=== PATIENT | female | born 1960 | race Two or more races ===

== ENCOUNTER → 2024-01-09 | Outpatient (CLI) | payer OTHER, SELFPAY ==
[2024-01-09 18:20] LABS: Free T4 (Free Thyroxine) 1.33 ng/dL (0.89-1.76)
== END | disposition home or self-care (01) ==
LOC: COPL 16:41
PROVIDERS: PCP Family Medicine; Referring Provider Family Medicine; Visit Provider Family Medicine
DX: E89.0 Postprocedural hypothyroidism (principal)
CPT/HCPCS: 36415; 84439; 84443

== ENCOUNTER 2024-03-01 15:02 | Outpatient (RCR) | payer OTHER, SELFPAY ==
--- NOTE | 2024-03-01 16:00 | CTCFLWUP_ITS ---
[facility] [address], [place] [address] FOLLOW-UP NOTE Date: 03/01/2024 MR#: [id number] Name: LINWOOD CARROLL : 1960 Dx: [id number] Malignant neoplasm of thyroid gland Identification. 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 Chandler Shelley. Stage II [id number] differentiated thyroid cancer papillary thyroid cancer status post suspected right l kitty malignancy with biopsy 10/06/2021 was negative. Underwent 100 mCi of radioiodine 12/01/2019 with residual cancer suspected via imaging studies so add itional external beam radiation was given 03/08/2022 through 05/20/2022 6800 cGy in [address] fractions [address] Dr[address] Tricia Suggs is giving patient's Synthroid supplements to keep her euthyroid. Most recent labs 01/09/2024 euthyroid TSH 0.20 Free T4 1.33 thyroglobulin was 1.2 on 09/12/2023. Being followed by Dr. Coburn for early stage breast cancer following double mastectomy with estrogen modulators. States that she will take the last of her 6 years letrozole this month. PET scan 09/19/2023 shows stable hypermetabolic foci in right upper lobe as well as focus of increased activity posterior medial left lower lobe. Subtle uptake in T5 T8 region. Had brain MRI 12/21/2023 negative as was her thoracolumbar spine MRI on 11/16/2023 Thyroid ultrasound 10/17/2023 showed no soft tissue mass in the thyroid bed. 1. Order ultrasound of the thyroid region 2. Repeat PET scan in [place] 3.Thyroglobulin thyroglobulin antibody Follow-up 3 months. Electronically signed by: Duane Flowers M.D. 03/01/2024 3:57 PM
== END 2024-03-23 23:59 | disposition home or self-care (01) ==
LOC: SCTC 15:02
PROVIDERS: PCP Family Medicine; Referring Provider Family Medicine; Visit Provider Radiology Therapeutic Radiology
DX: C73 Malignant neoplasm of thyroid gland (principal); E89.0 Postprocedural hypothyroidism; Z92.3 Personal history of irradiation; Z79.890 Hormone replacement therapy
CPT/HCPCS: 99213; G0463

== ENCOUNTER → 2024-03-23 | Outpatient (CLI) | payer OTHER, SELFPAY ==
--- NOTE | 2024-03-23 16:00 | XR_ITS ---
Examination: Thyroid sonography complete TECHNIQUE: Grayscale sonographic images thyroid lobes are carful analysis Exam date and time: March 23, 2024 at 1624 hours INDICATIONS: Thyroid cancer diagnosis post thyroidectomy 2021 FINDINGS: No soft tissue mass in the thyroid bed No thyroid lobes noted IMPRESSION: No soft tissue mass in the thyroid bed
== END | disposition home or self-care (01) ==
PROVIDERS: PCP Family Medicine; Referring Provider Radiology Therapeutic Radiology; Visit Provider Radiology Therapeutic Radiology
DX: C73 Malignant neoplasm of thyroid gland (principal)
CPT/HCPCS: 76536

== ENCOUNTER → 2024-04-13 | Outpatient (CLI) | payer OTHER, SELFPAY ==
[2024-04-13 18:05] LABS: Free T4 (Free Thyroxine) 1.33 ng/dL (0.89-1.76); Thyroid Stimulating Hormone 0.14 uIU/mL (0.55-4.78)
[2024-04-18 17:49] LABS: Thyroglobulin Antibodies 1 IU/mL (< OR = 1)
[2024-04-19 06:51] LABS: Thyroglobulin 0.6 ng/mL
== END | disposition home or self-care (01) ==
LOC: SCTO 16:33
PROVIDERS: PCP Family Medicine; Referring Provider Radiology Therapeutic Radiology; Visit Provider Radiology Therapeutic Radiology
DX: C73 Malignant neoplasm of thyroid gland (principal); E03.8 Other specified hypothyroidism
CPT/HCPCS: 36415; 84432; 84439; 84443; 86800

== ENCOUNTER 2024-06-06 14:25 | Outpatient (RCR) | payer OTHER, SELFPAY ==
--- NOTE | 2024-06-06 15:23 | CTCFLWUP_ITS ---
[facility] [address] [address], [place] [address] FOLLOW-UP NOTE Date: 06/06/2024 MR#: [id number] Name: LINWOOD CARROLL : 1960 Dx: [id number] Malignant neoplasm of thyroid gland Identification. 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 Chandler Shelley. Stage II [id number] differentiated carcinoma thyroid Also status post right lung malignancy with PET showing lung nodules with biopsy 10/06/2021 which was negative. Patient has been experiencing back pain with MRI of TL spine 11/16/2023 no definite evidence of mets. Ultrasound of thyroid region 03/23/2024 no sign of recurrence. Most recent PET 06/12/2024 shows some increased activity the left larynx left laryngeal and epiglottic folds with 9.47 maximal SUV. Multiple small pulm nodules seen again bilaterally some which are slightly larger and more hypermetabolic. Most recent labs 04/13/2024 TSH 0.14 Free T4 1.33 Thyroglobulin 0.6 1.2 on 09/13/2023 A#1. Stage !! [id number] status post total thyroidectomy bilateral neck dissection 10/06/2021 Daphney had radioactive iodine #2. had biopsy of lung nodule PET positive - 10/06/2021. #3. received 100 mCi of radioactive iodine with what appeared to residual in the thyroid region so also received external beam radiation 6600 cGy completed 05/03/2022. #4. currently euthyroid on 75 mcg of Synthroid. #5. persistent pulmonary nodules noted on recent PET scan. Will attempt to get CT guided biopsy #6. being seen at [facility] for early stage right breast cancer status post bilateral mastectomy 2018 on letrozole. No sign of recurrence according to patient #7. Labs thyroid function test thyroglobulin CT scan neck chest. #8. Follow-up 3 months. Electronically signed by: Duane Flowers M.D. 06/06/2024 3:21 PM
== END 2024-06-20 23:59 | disposition home or self-care (01) ==
LOC: SCTC 14:25
PROVIDERS: PCP Family Medicine; Referring Provider Family Medicine; Visit Provider Radiology Therapeutic Radiology
DX: C73 Malignant neoplasm of thyroid gland (principal); E89.0 Postprocedural hypothyroidism; Z92.3 Personal history of irradiation; R91.8 Other nonspecific abnormal finding of lung field; Z90.13 Acquired absence of bilateral breasts and nipples; Z85.3 Personal history of malignant neoplasm of breast
CPT/HCPCS: 99213; G0463

== ENCOUNTER → 2024-06-22 | Outpatient (CLI) | payer OTHER, SELFPAY ==
[2024-06-22 17:28] LABS: Basophils % (Auto) 1 % (0-2.5); Eosinophils # (Auto) 0.2 Thou/mm3 (0.0-0.5); Eosinophils % (Auto) 3 % (0-10); Hemoglobin 13.3 g/dL (12.0-16.0); Immature Granulocytes % (Auto) 0 % (0-0); Immature Granulocytes Auto 0.01 Thou/mm3 (0.00-0.00); Lymphocytes # (Auto) 1.7 Thou/mm3 (1.0-4.8); Lymphocytes % (Auto) 25 % (10-50); Mean Corpuscular HGB Conc 34.1 g/dl (31.0-37.0); Mean Corpuscular Hemoglobin 29.4 pg (25.0-35.0); Mean Corpuscular Volume 86 fL (80-100); Monocytes # (Auto) 0.6 Thou/mm3 (0.0-0.8); Monocytes % (Auto) 9 % (0-12); Neutrophils # (Auto) 4.3 Thou/mm3 (1.8-7.7); Neutrophils % (Auto) 63 % (37-80); Nucleated Red Blood Cell % 0 /100 WBC (0); Platelet Count 238 Thou/mm3 (140-440); RDW Standard Deviation 41.9 fL (36.4-46.3); Red Blood Count 4.53 Miln/mm3 (4.00-5.20); White Blood Count 6.7 Thou/mm3 (3.6-11.0)
[2024-06-22 17:45] LABS: Alanine Aminotransferase 16 U/L (10-49); Albumin, Serum 4.5 gm/dL (3.4-4.8); Albumin/Globulin Ratio 1.7 (1.2-2.2); Alkaline Phosphatase 81 U/L (46-116); Anion Gap 8 (7-16); Aspartate Amino Transferase 18 U/L (0-34); BUN/Creatinine Ratio 16 Ratio (12-20); Bilirubin,Total 0.4 mg/dL (0.3-1.2); Blood Urea Nitrogen 14 mg/dL (9-23); Calcium 8.7 mg/dL (8.3-10.6); Calcium (Corrected) 8.7 mg/dL (8.5-10.1); Carbon Dioxide 27.6 mMol/L (20.0-31.0); Chloride 107 mMol/L (98-107); Creatinine (Component) 0.9 mg/dL (0.6-1.3); Free T4 (Free Thyroxine) 1.15 ng/dL (0.89-1.76); Globulin 2.6 gm/dL (2.3-3.5); Glucose 86 mg/dL (74-106); Osmolality,Calculated 284 (275-295); Potassium 4.2 mMol/L (3.4-5.1); Sodium 143 mMol/L (136-145); Thyroid Stimulating Hormone 0.66 uIU/mL (0.55-4.78); Total Protein 7.1 gm/dL (5.7-8.2); eGFR > 60 See Note
== END | disposition home or self-care (01) ==
LOC: SCTO 16:57
PROVIDERS: PCP Family Medicine; Referring Provider Radiology Therapeutic Radiology; Visit Provider Radiology Therapeutic Radiology
DX: C73 Malignant neoplasm of thyroid gland (principal); E89.0 Postprocedural hypothyroidism
CPT/HCPCS: 36415; 80053; 84432; 84439; 84443; 85025; 86800

== ENCOUNTER → 2024-07-10 | Outpatient (CLI) | payer OTHER, SELFPAY ==
--- NOTE | 2024-07-10 10:30 | XR_ITS ---
Examination: CT chest with intravenous contrast 2-D sagittal and coronal reconstructions Exam date and time: July 10, [address] chest 11/01/2016 INDICATIONS: Diagnosis malignant neoplasm thyroid gland thyroid cancer 2021 also bilateral breast cancer, diagnosis post mastectomy 2018, hoarseness voice 6 months CTDI:vol (mGy) 22.8 DLP: (mGycm) 809 Technique: Multiple axial sections of the thorax have been obtained. Sections have been obtained, 3 mm slice thickness. Mediastinal and lung density settings have been obtained. Intravenous contrast administered, 60 cc Isovue-370. 2-D sagittal, coronal images obtained. Low dose protocols were performed. One or more of the following dose reduction techniques were used; automated exposure control, adjustment of the mA and/or KV according to patient size, use of iterative reconstruction technique. Findings: No thoracic aortic aneurysm dilatation or dissection No pulmonary artery filling defects No paratracheal tracheobronchial or bronchopulmonary adenopathy At least 30 bilateral noncalcified pulmonary nodules, the largest is in the right upper lobe, with spiculated margins, 9 mm No lobar pneumonia or pulmonary edema No visualized liver or splenic lesions No gallstones No pancreatic or adrenal mass IMPRESSION: At least 30 bilateral noncalcified pulmonary nodules consistent with pulmonary nodular metastatic disease
--- NOTE | 2024-07-10 11:00 | XR_ITS ---
Examination: CT soft tissue neck, with intravenous contrast. 2-D coronal reconstructions. 2-D sagittal reconstructions. 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 CTDI: vol (mGy):15.5 DLP: (mGycm):133 Technique: 1.25 mm axial sections of the neck of the obtained. Coronal and sagittal reconstructions have been obtained. Intravenous contrast administered 60 cc Isovue-370. Low dose protocols were performed. One or more of the following dose reduction techniques were used; automated exposure control, adjustment of the mA and/or KV according to patient size, use of iterative reconstruction technique. Findings: Mucosal disease in the sphenoid air cells Symmetrical nasopharynx oropharynx No pathologic carotid triangle submental lymphadenopathy Surgical clips in the carotid triangle regions Symmetrical submandibular glands No laryngeal mass No soft tissue in the thyroid bed Normal epiglottis IMPRESSION: No pathologic lymphadenopathy No soft tissue mass in the thyroid bed
== END | disposition home or self-care (01) ==
PROVIDERS: PCP Family Medicine; Referring Provider Radiology Therapeutic Radiology; Visit Provider Radiology Therapeutic Radiology
DX: R49.0 Dysphonia (principal); R91.8 Other nonspecific abnormal finding of lung field; C73 Malignant neoplasm of thyroid gland
CPT/HCPCS: 70491; 71260; A4649; Q9967

== ENCOUNTER 2024-10-17 15:11 | Outpatient (RCR) | payer OTHER, SELFPAY ==
--- NOTE | 2024-10-17 16:18 | CTCFLWUP_ITS ---
[facility] [address] [place], [place] [address] FOLLOW-UP NOTE Date: 10/17/2024 MR#: [id number] Name: LINWOOD CARROLL : 1960 Dx: C73 Malignant neoplasm of thyroid gland Identification. 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 Chandler Shelley. Stage II [id number] differentiated carcinoma thyroid. Also history of bilateral mastectomy 2018 for early stage breast cancer been on letrozole under Dr. Coburn's direction. PET scan showed lung nodules with biopsy 10/06/2021 negative. Had 100 mCi of radioactive iodine 12/11/2021 with residual cancer suspected via imaging studies so additional radiotherapy given via external beam 03/08/2022 through 05/03/2022 6600 cGy in 33 fractions via VMAT. Most recent PET scan 06/11/2023 showed increased activity laryngeal area with small pulmonary nodules with some slightly larger than previously. Most recent CT 07/10/2024 showed no pathologic lymphadenopathy no soft tissue mass in thyroid bed but numerous bilateral noncalcified pulmonary nodules suggestive of mets disease. Was evaluated by ENT at [facility] Dr. Quiros. ENT exam essentially unremarkable but possible biopsy of the lung nodules was discussed. Thyroglobulin has remained low Patient saw Dr. Barrios today because of significant rash lower trunk for which she was given prednisone and other medications. Examined her neck and upper chest which were unremarkable lungs were clear. A#!. Stage II differential carcinoid thyroid prior thyroidectomy radioactive iodine and external beam. Patient has been euthyroid on Synthroid 75 mcg. With low thyroglobulin. A#2. Small but enlarging pulmonary nodules being followed at [facility]. Recommended biopsy done there. Patient agrees. A#3. I will see her again in 3 months with labs including CBC CMP and thyroid functions. Cc: Trevor Suggs MD Electronically signed by: Duane Flowers M.D. 10/17/2024 4:16 PM
== END 2024-10-21 23:59 | disposition home or self-care (01) ==
LOC: SCTC 15:11
PROVIDERS: PCP Family Medicine; Referring Provider Family Medicine; Visit Provider Radiology Therapeutic Radiology
DX: C73 Malignant neoplasm of thyroid gland (principal); E89.0 Postprocedural hypothyroidism; Z79.890 Hormone replacement therapy; R91.8 Other nonspecific abnormal finding of lung field
CPT/HCPCS: 99213; G0463

== ENCOUNTER → 2024-11-02 | Outpatient (CLI) | payer OTHER, SELFPAY ==
[2024-11-02 09:31] LABS: Basophils # (Auto) 0.1 Thou/mm3 (0.0-0.2); Basophils % (Auto) 1 % (0-2.5); Eosinophils # (Auto) 0.5 Thou/mm3 (0.0-0.5); Eosinophils % (Auto) 6 % (0-10); Hematocrit 45.9 % (36.0-46.0); Hemoglobin 15.3 g/dL (12.0-16.0); Immature Granulocytes Auto 0.02 Thou/mm3 (0.00-0.00); Lymphocytes # (Auto) 0.9 Thou/mm3 (1.0-4.8); Lymphocytes % (Auto) 11 % (10-50); Mean Corpuscular HGB Conc 33.3 g/dl (31.0-37.0); Mean Corpuscular Hemoglobin 29.7 pg (25.0-35.0); Mean Corpuscular Volume 89 fL (80-100); Monocytes # (Auto) 0.9 Thou/mm3 (0.0-0.8); Monocytes % (Auto) 11 % (0-12); Neutrophils # (Auto) 6.0 Thou/mm3 (1.8-7.7); Neutrophils % (Auto) 72 % (37-80); Nucleated Red Blood Cell # 0.00 Thou/mm3 (0.00-0.00); Nucleated Red Blood Cell % 0 /100 WBC (0); Platelet Count 323 Thou/mm3 (140-440); RDW Standard Deviation 44.8 fL (36.4-46.3); Red Blood Count 5.16 Miln/mm3 (4.00-5.20); White Blood Count 8.4 Thou/mm3 (3.6-11.0)
[2024-11-02 09:45] LABS: Free T4 (Free Thyroxine) 1.07 ng/dL (0.89-1.76); Thyroid Stimulating Hormone 7.99 uIU/mL (0.55-4.78)
== END | disposition home or self-care (01) ==
LOC: COPL 08:23
PROVIDERS: PCP Family Medicine; Referring Provider Family Medicine; Visit Provider Family Medicine
DX: E89.0 Postprocedural hypothyroidism (principal)
CPT/HCPCS: 36415; 84439; 84443; 85025

== ENCOUNTER 2024-11-06 16:06 | Inpatient (IN) | payer OTHER, SELFPAY ==
[2024-11-06 16:24] VITALS: BP 149/84; PULSE 81; RESP 24; TEMP 37.5; O2SAT 95
[2024-11-06 16:39] VITALS: BMI 31.4
--- NOTE | 2024-11-06 16:39 | PC.NURSE ---
pt came in from lobby due to increased sob for 1 wk and sent by pmd for massive fluid to rt lung. pt has hacking cough that is having yellow sputum. pt also has hx of ca in breast and thyroid, which she has bilateral mastectomy. vss. placed pt on 2l nc for comfort.
--- NOTE | 2024-11-06 16:46 | EKG_ITS ---
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
--- NOTE | 2024-11-06 16:46 | XR_ITS ---
Examination: AP chest single view Technique one AP portable sitting chest single view Date and time: November 06, 2024, 1709 hrs., Comparison April 19, 2023 Indications: Chest pain today. Findings: Total opacification right hemithorax with shift of the heart and mediastinum to the left, most consistent with massive right pleural effusion Left ventricular contour unremarkable Possible retrocardiac gastric hernia although pulmonary mass in the left lower lobe not excluded No left lung pneumonia Impression: Total opacification right hemithorax, likely massive pleural effusion Consider CT chest post intravenous contrast follow-up
--- NOTE | 2024-11-06 16:46 | XR_ITS ---
Examination: CT chest, without intravenous contrast. Sagittal and coronal 2-D reconstructions. Exam date and time: November 06, 2024, 1903 hrs., Comparison July 10, 2024 Indications: Shortness of breath one week, diagnosis malignant neoplasm thyroid gland 2021, diagnosis bilateral breast cancer mastectomy, at least 30 noncalcified pulmonary nodules throughout the lungs on CT chest July 10, 2024 CTDI:vol (mGy) 12.8 DLP: (mGycm) 451 Technique: Multiple 3.0 mm axial sections of the chest to been obtained. Bone and lung density settings are obtained. Sagittal and coronal 2-D reconstructions have been obtained. Low dose protocols were performed. One or more of the following dose reduction techniques were used; automated exposure control, adjustment of the mA and/or KV according to patient size, use of iterative reconstruction technique. Findings: No thoracic aortic aneurysm dilatation Pulmonary artery segments are not enlarged. Massive right pleural effusion with total atelectasis right lung New and enlarging pulmonary nodules left lung consistent with progression of metastatic disease This study has been performed without contrast which limits assessment for mediastinal lymphadenopathy No definite liver lesions The gallbladder is partly visualized and distended Spleen is not enlarged No adrenal metastatic disease Moderate osteopenia Impression: Massive right pleural effusion with total atelectasis right lung Enlarging pulmonary nodules left lung consistent with progression of metastatic disease compared with July 10, 2024
--- NOTE | 2024-11-06 16:47 | XR_ITS ---
Examination: CTA chest with intravenous contrast 2-D reconstructions 3-D reconstructions, vascular Date and time of exam: November 06, 2024 1905 hrs. Indications: Thyroid carcinoma diagnosis, bilateral breast carcinoma diagnosis, massive right pleural effusion and shortness of breath today CTDI: vol (mGy) 19.3 DLP: (mGycm) 425 Technique: Multiple axial sections of the thorax have been obtained. 3 mm slice thickness, from below the hemidiaphragms to above the apices of the lungs. Mediastinal and lung density settings have been obtained. 2-D sagittal and coronal reconstructions. 3-D angiographic renderings, 3-D volume renderings, 3D post processing, vascular maximum intensity projections obtained. Contrast administered is 100 cc Isovue-370. Low dose protocols were performed. One or more of the following dose reduction techniques were used; automated exposure control, adjustment of the mA and/or KV according to patient size, use of iterative reconstruction technique. Findings: No thoracic aortic aneurysm dilatation or dissection No soft tissue masses in the thyroid bed Pulmonary artery segments are not enlarged No pulmonary artery filling defects Massive right pleural effusion with collapse of the right lung Multiple pulmonary nodules, progression of pulmonary nodular metastatic disease compared with July 10, 2024 No definite paratracheal or tracheobronchial or hilar lymphadenopathy Impression: Negative for pulmonary artery emboli Negative for pulmonary artery hypertension Massive right pleural effusion with total collapse of the right lung Progression of pulmonary nodular metastatic disease left lung compared with July 10, 2024
--- NOTE | 2024-11-06 16:48 | PD.EDSOB ---
ED SOB =RME/HPI General Chief Complaint: Shortness of Breath/Dyspnea Stated Complaint: SOB X 1 week, massive right pleural effusion Time Seen by Provider: 11/06/24 16:23 Arrival date/time: 11/06/24 16:06 RME / HPI RME / HPI Narrative: 64 year old female with history of breast CA dx 2017, s/p mastectomy, thyroid CA dx 2022, s/p thyroidectomy and radiation therapy, presents to the ED with complaints of shortness of breath, generalized weakness, and chills for the past two weeks. Patient initially saw her PCP two weeks ago and was diagnosed with emphysema. Started on a course of steroids and Zyrtec, which she took for one week without improvement. At her follow up appt 1 week ago, her medications were changed with no improvement in symptoms. States PCP ordered a chest x-ray that she had performed this morning and was called stating she had a right-sided pleural effusion; advised to come to the ED for further evaluation and treatment. Denies fever, abdominal pain, nausea, vomiting, or urinary symptoms. Patient also reports that since June 2024, imaging has shown spots in her lungs. She has been referred to [facility] for a lung biopsy and was originally scheduled for a consultation tomorrow but has rescheduled the appointment to 11/21/2024. Oncologists: Dr. Flowers ([place]), Dr. Chandler Crouch ([place]) Related Data Home Medications ?Medication ?Instructions ?Recorded ?Confirmed Fluticasone/Vilanterol (Breo 1 ea IH QDAY Asthma #0 ea 02/02/17 11/17/24 Ellipta 100-25 Mcg INH) letrozole 2.5 mg tablet 2.5 mg PO .am 01/21/21 11/17/24 sertraline 50 mg tablet 50 mg PO HS 01/21/21 11/17/24 albuterol sulfate 90 mcg/actuation 1 puff inhalation PRN PRN 11/07/24 11/17/24 aerosol inhaler shortness of breath or wheezing celecoxib 200 mg capsule 200 mg PO Q24H 11/07/24 11/17/24 letrozole 2.5 mg tablet (Femara) 2.5 mg PO Q24H 11/07/24 11/17/24 levothyroxine 75 mcg tablet 75 mcg PO .morning 11/07/24 11/17/24 Allergies Allergy/AdvReac Type Severity Reaction Status Date / Time Sulfa (Sulfonamide Allergy Severe Rash Verified 11/17/24 22:45 Antibiotics) tramadol Allergy Severe RASH, SOB Verified 11/17/24 22:44 PAPER TAPE Allergy Mild ICHY, Uncoded 11/17/24 22:44 LOCALIZED RASH Review of Systems Review of Systems Systems Reviewed: All systems reviewed, normal except as documented Past Medical History Past Medical History RESPIRATORY: Positive Asthma (started as an adult) and Pneumonia GASTROINTESTINAL: Positive Gastrointestinal Disorders and Obesity REPRODUCTIVE: Positive Breast Cancer (rt breast ca 3yrs ago, had double mastectomy december2017) and Previous Pregnancies () MUSCULOSKELETAL: Positive Musculoskeletal Disorders and Arthritis PSYCHO/SOCIAL: Positive Depression and Anxiety OTHER HISTORY: Positive Anesthesia Reactions (N/V), Chicken Pox, Cancer and Breast Cancer (rt breast ca 3yrs ago, had double mastectomy december2017) Surgical History SURGICAL: Positive Eye Surgery (lasik 18 yrs ago), Throat Surgery (voal cord, 2018), Mastectomy (double-2017) and Tubal Ligation (1979) Social History SMOKING STATUS: Never smoker ED Exam Narrative Physical exam: GENERAL APPEARANCE: alert and oriented x 4, well-developed, well-nourished, tachypneic, hoarse voice, coughing during exam HEENT: Normocephalic, atraumatic; pupils equal, round, reactive to light; EOMI; mucous membranes pink, moist; oropharynx clear NECK: Supple LUNGS: Decreased lung sounds to the apex on the right, lung sounds are okay on the right; no wheezes, no rales, no rhonchi HEART: Regular rate, regular rhythm; normal S1, S2; no murmurs ABDOMEN: non distended; normal BS; soft, no tenderness, no guarding, no rebound; no masses, no organomegaly, no hernia BACK: no CVA tenderness EXTREMITIES: atraumatic; no edema NEUROLOGIC: awake; alert and oriented x4; cranial nerves II-XII grossly intact; no focal sensory or motor deficits PSYCHIATRIC: appropriate mood and affect SKIN: warm, dry, normal color; no rashes Course Quality Measures none Orders Category Date Time Status Bedside COVID-19 Antigen Test NOW Care 11/06/24 16:46 Completed Bedside Influenza A&B Antigen Test NOW Care 11/06/24 16:[address] Screening NOW Care 11/06/24 16:47 Completed Corporate Trust Officer Q4H START 00 Care 11/06/24 16:46 Completed EKG (ED ONLY) *Do not use* NOW Care 11/06/24 16:[address] angio chest Stat Exams 11/06/24 16:[address] chest wo con Stat Exams 11/06/24 16:46 Completed EKG (ED Only) Stat Exams 11/06/24 16:46 Draft XR chest 1V portable Stat Exams 11/06/24 16:46 Completed B-Type Natriuretic Peptide Stat Lab 11/06/24 16:40 Completed Blood Culture (Lab) Stat Lab 11/06/24 16:58 Completed CBC Stat Lab 11/06/24 16:58 Completed Comprehensive Metabolic Panel Stat Lab 11/06/24 16:58 Completed Lactate (Lactic Acid) Stat Lab 11/06/24 16:58 Completed Magnesium Stat Lab 11/06/24 16:58 Completed Partial Thromboplastin Time Stat Lab 11/06/24 16:40 Completed Procalcitonin Stat Lab 11/06/24 16:58 Completed Prothrombin Time with INR Stat Lab 11/06/24 16:40 Completed Troponin I Stat Lab 11/06/24 16:58 Completed UA, C/S IF [Urinalysis, C/S if Indicated] Stat Lab 11/07/24 12:30 Completed Acetaminophen Tab [Tylenol Tab] Med 11/06/24 18:00 Discontinued 650 mg PO X1 ONE Vital Signs Vital signs: Vital Signs Temperature 99.5 F 11/06/24 16:24 Pulse Rate 81 11/06/24 16:24 Respiratory Rate 24 H 11/06/24 16:24 Blood Pressure 149/84 H 11/06/24 16:24 Pulse Oximetry (%) 95 11/06/24 16:24 Oxygen Delivery Method Room Air 11/06/24 16:24 Pulse ox is 95% on room air which is adequate. Shortness of Breath / Dyspnea MDM Narrative MDM Narrative:: Shanelle Mckeon am scribing for and in the presence of Dr. Rivera. 1800: Patient signed out to Dr. Guerra pending CTA chest and CT chest wo con. Patient data External records reviewed:: [facility] previous records Clinical information provided by:: patient Social determinants that could affect healthcare access:: none Patient has the following chronic illnesses:: breast CA dx 2017, s/p mastectomy, thyroid CA dx 2022, s/p thyroidectomy and radiation therapy How is presenting disease/condition affected by chronic disease/condition?: exacerbated by Evaluation data The following diagnostics were reviewed and interpreted by me:: lab results, radiology exam(s) and EKG tracing(s) (Sinus rhythm with short TN interval, rate 86, no STEMI) Lab and/or radiology exams considered but not ordered:: None Interpretation Summary: Ordering Physician: Corina Rivera MD Date of Service: 11/06/24 Procedure(s): XR chest 1V portable Accession Number(s): [id number] cc: Trevor Suggs MD; Cipriano Castellon MD; Corina Rivera MD~ Examination: AP chest single view Technique one AP portable sitting chest single view Date and time: November 06, 2024, 1709 hrs., Comparison April 19, 2023 Indications: Chest pain today. Findings: Total opacification right hemithorax with shift of the heart and mediastinum to the left, most consistent with massive right pleural effusion Left ventricular contour unremarkable Possible retrocardiac gastric hernia although pulmonary mass in the left lower lobe not excluded No left lung pneumonia Impression: Total opacification right hemithorax, likely massive pleural effusion Consider CT chest post intravenous contrast follow-up Dictated By: Cipriano Castellon MD Signed By: <Electronically signed by Cipriano Castellon MD in [place]> 11/06/24 1732 Medications / Prescriptions Medications or Prescriptions considered but not ordered:: None Medication administrations:: Medication Administration History Discontinued Medications Acetaminophen (Acetaminophen 325 Mg Tablet) 650 mg PO X1 ONE Stop: 11/06/24 18:01 Last Admin: 11/06/24 18:32 Dose: 650 mg Documented By: YUNG Acetaminophen (Acetaminophen 325 Mg Tablet) 650 mg PO Q6H PRN PRN Reason: Fever >101.5 Stop: 12/06/24 22:15 Acetaminophen (Acetaminophen 325 Mg Tablet) 650 mg PO Q6H PRN; Protocol PRN Reason: Fever >101.5 AND PAIN Stop: 12/06/24 22:15 Last Admin: 11/10/24 20:40 Dose: 650 mg Documented By: Admin: 11/10/24 14:44 Dose: 650 mg Documented By: Admin: 11/08/24 06:21 Dose: 650 mg Documented By: Admin: 11/07/24 08:42 Dose: 650 mg Documented By: Hydrocodone Bitart/Acetaminophen (Hydrocodone/Apap 5/325 Tablet) 1 tab PO X1 ONE Stop: 11/09/24 11:04 Last Admin: 11/09/24 11:09 Dose: 1 tab Documented By: zafar Hydrocodone Bitart/Acetaminophen (Hydrocodone/Apap 5/325 Tablet) 1 tab PO X1 ONE Stop: 11/09/24 19:58 Last Admin: 11/09/24 20:03 Dose: 1 tab Documented By: Hydrocodone Bitart/Acetaminophen (Hydrocodone/Apap 5/325 Tablet) 1 tab PO X1 ONE Stop: 11/10/24 05:05 Last Admin: 11/10/24 05:15 Dose: 1 tab Documented By: Hydrocodone Bitart/Acetaminophen (Hydrocodone/Apap 5/325 Tablet) 1 tab PO X1 ONE Stop: 11/10/24 22:40 Last Admin: 11/10/24 22:54 Dose: 1 tab Documented By: Hydrocodone Bitart/Acetaminophen (Hydrocodone/Apap 5/325 Tablet) 1 tab PO Q4HR PRN PRN Reason: Pain 7-10 Stop: 11/16/24 11:40 Last Admin: 11/13/24 13:20 Dose: 1 tab Documented By: Admin: 11/13/24 04:17 Dose: 1 tab Documented By: Admin: 11/12/24 23:57 Dose: 1 tab Documented By: Admin: 11/12/24 18:13 Dose: 1 tab Documented By: Admin: 11/12/24 07:52 Dose: 1 tab Documented By: Admin: 11/11/24 23:49 Dose: 1 tab Documented By: Admin: 11/11/24 19:25 Dose: 1 tab Documented By: ANGEL Hydrocodone Bitart/Acetaminophen (Hydrocodone/Apap 5/325 Tablet) 1 tab PO Q3H PRN PRN Reason: Pain 5-10 Stop: 11/16/24 11:40 Last Admin: 11/14/24 07:07 Dose: 1 tab Documented By: Admin: 11/13/24 21:03 Dose: 1 tab Documented By: Admin: 11/13/24 16:44 Dose: 1 tab Documented By: DIGNA Albuterol/Ipratropium (Albuterol/Ipratropium (Duoneb) Rt Zo 3 Ml Nebu) 3 ml INH Q2HR PRN PRN Reason: SHORTNESS OF BREATH OR WHEEZE Stop: 12/07/24 02:50 Last Admin: 11/14/24 01:12 Dose: 3 ml Documented By: MAGGY Fentanyl Citrate (Fentanyl Cit Inj 50 Mcg/Ml Amp 2ml) Confirm Administered Dose 100 mcg .ROUTE .STK-MED ONE Stop: 11/08/24 14:30 Last Admin: 11/08/24 15:31 Dose: Not Given Documented By: ARGENTINA Non-Admin Reason: Override Medication Fentanyl Citrate (Fentanyl Cit Inj 50 Mcg/Ml Amp 2ml) 75 mcg IVP X1 ONE Stop: 11/08/24 14:43 Last Admin: 11/08/24 14:43 Dose: 75 mcg Documented By: ARGENTINA Guaifenesin (Guaifenesin Er 600 Mg Tabcr) 600 mg PO X1 ONE Stop: 11/07/24 19:18 Last Admin: 11/07/24 20:11 Dose: 600 mg Documented By: DYLAN Moseleyaifenesin (Guaifenesin Er 600 Mg Tabcr) 600 mg PO BID [place]O Stop: 12/08/24 10:44 Last Admin: 11/14/24 08:56 Dose: 600 mg Documented By: Admin: 11/13/24 21:03 Dose: 600 mg Documented By: Admin: 11/13/24 08:54 Dose: 600 mg Documented By: Admin: 11/12/24 20:18 Dose: 600 mg Documented By: Admin: 11/12/24 08:49 Dose: 600 mg Documented By: Admin: 11/11/24 20:30 Dose: 600 mg Documented By: Admin: 11/11/24 08:15 Dose: 600 mg Documented By: Admin: 11/10/24 20:42 Dose: 600 mg Documented By: Admin: 11/10/24 08:51 Dose: 600 mg Documented By: Admin: 11/09/24 21:01 Dose: 600 mg Documented By: Admin: 11/09/24 08:34 Dose: 600 mg Documented By: zafar Admin: 11/08/24 22:16 Dose: Not Given Documented By: BREE Non-Admin Reason: Patient Refused Admin: 11/08/24 11:24 Dose: 600 mg Documented By: zafar Heparin Sodium (Beef Lung) (Heparin Sod Lock Syr 100 Unit/Ml) 500 [facility] X1 ONE Stop: 11/08/24 14:43 Last Admin: 11/08/24 14:44 Dose: 500 unit Documented By: ARGENTINA Comments: to sterile field Heparin Sodium (Porcine) (Heparin Sod Inj 5000 Unit/Ml Vial) 5,000 unit SC BID CHAPARRO Stop: 11/21/24 08:59 Last Admin: 11/07/24 20:00 Dose: Not Given Documented By: DYLAN Non-Admin Reason: okay to hold it per Dr. Guerrero Admin: 11/07/24 08:30 Dose: 5,000 unit Documented By: Co-signed By: KATHIE Ceftriaxone Sodium/Dextrose (Rocephin/D5w 1gm Iv Premix) 1 gm in 50 mls @ 100 mls/hr IV QDAY [place] Stop: 11/10/24 09:29 Last Admin: 11/10/24 08:52 Dose: 100 mls/hr Documented By: Infusion: 11/09/24 09:04 Dose: Infused Documented By: Admin: 11/09/24 08:34 Dose: 100 mls/hr Documented By: zafar Infusion: 11/08/24 10:34 Dose: Infused Documented By: zafar Admin: 11/08/24 10:04 Dose: 100 mls/hr Documented By: zafar Infusion: 11/07/24 09:09 Dose: Infused Documented By: zafar Admin: 11/07/24 08:39 Dose: 100 mls/hr Documented By: Doxycycline Hyclate 100 mg/ (Sodium Chloride) 100 mls @ 100 mls/hr IV X1 ONE Stop: 11/06/24 23:44 Last Admin: 11/07/24 01:06 Dose: 100 mls/hr Documented By: FORD Ceftriaxone Sodium/Dextrose (Rocephin/D5w 1gm Iv Premix) 1 gm in 50 mls @ 100 mls/hr IV X1 ONE Stop: 11/06/24 23:14 Last Admin: 11/07/24 01:06 Dose: 100 mls/hr Documented By: FORD Doxycycline Hyclate 100 mg/ (Sodium Chloride) 100 mls @ 100 mls/hr IV BID [place]O Stop: 11/13/24 08:59 Magnesium Sulfate (Magnesium Sulfate Ivpb) 4 gm in 50 mls @ 12.5 mls/hr IV X1 ONE Stop: 11/07/24 12:05 Last Admin: 11/07/24 08:39 Dose: 12.5 mls/hr Documented By: Letrozole (Letrozole 2.5 Mg Tablet (Non-Formulary)) 2.5 mg PO QDAY [place]O Stop: 12/10/24 09:44 Last Admin: 11/14/24 08:56 Dose: 2.5 mg Documented By: DIGNA Co-signed By: [email or web address] Admin: 11/13/24 08:50 Dose: 2.5 mg Documented By: DIGNA Co-signed By: HUGO Admin: 11/12/24 08:50 Dose: 2.5 mg Documented By: KEELEY Co-signed By: GENOVEVA Admin: 11/11/24 08:17 Dose: 2.5 mg Documented By: DONNA Co-signed By: ANNE Admin: 11/10/24 10:42 Dose: 2.5 mg Documented By: DIGNA Co-signed By: DONNA Levothyroxine Sodium (Levothyroxine Sodium 25 Mcg Tablet) 75 mcg PO ACBR [place] Stop: 12/07/24 05:59 Last Admin: 11/14/24 05:03 Dose: 75 mcg Documented By: Admin: 11/13/24 05:51 Dose: 75 mcg Documented By: Admin: 11/12/24 05:40 Dose: 75 mcg Documented By: Admin: 11/11/24 05:40 Dose: 75 mcg Documented By: Admin: 11/10/24 05:16 Dose: 75 mcg Documented By: Admin: 11/09/24 06:13 Dose: 75 mcg Documented By: Admin: 11/08/24 06:21 Dose: 75 mcg Documented By: Admin: 11/07/24 05:06 Dose: 75 mcg Documented By: ANTONIA Lidocaine (Lidocaine 5% 1 Patch) 1 patch TOP X1 ONE Stop: 11/11/24 06:04 Last Admin: 11/11/24 06:11 Dose: 1 patch Documented By: Lidocaine HCl (Lidocaine Inj Pf 1% 30 Ml Vial) Confirm Administered Dose 30 ml .ROUTE .STK-MED ONE Stop: 11/08/24 13:30 Last Admin: 11/08/24 15:31 Dose: Not Given Documented By: CU Non-Admin Reason: Override Medication Lidocaine HCl (Lidocaine Inj Pf 1% 30 Ml Vial) Confirm Administered Dose 30 ml .ROUTE .STK-MED ONE Stop: 11/08/24 14:30 Last Admin: 11/08/24 15:32 Dose: Not Given Documented By: ARGENTINA Non-Admin Reason: Override Medication Lidocaine HCl (Lidocaine Inj Pf 1% 30 Ml Vial) 25 ml INFL X1 ONE Stop: 11/08/24 14:43 Last Admin: 11/08/24 14:44 Dose: 25 ml Documented By: ARGENTINA Comments: to sterile field administered by Dr. Castellon Morphine Sulfate (Morphine Sulf Inj 4 Mg/Ml Vial) 1 mg IVP Q4H PRN PRN Reason: Pain 7-10 Last Admin: 11/09/24 04:05 Dose: 1 mg Documented By: Admin: 11/08/24 21:30 Dose: 1 mg Documented By: Admin: 11/08/24 16:45 Dose: 1 mg Documented By: zafar Naloxone HCl (Naloxone Inj 0.4 Mg/Ml Vial) Confirm Administered Dose 0.4 mg .ROUTE .STK-MED ONE Stop: 11/08/24 14:29 Last Admin: 11/08/24 15:31 Dose: Not Given Documented By: CU Non-Admin Reason: Override Medication Ondansetron HCl (Ondansetron Inj 2 Mg/Ml Inj 2 Ml) Confirm Administered Dose 4 mg .ROUTE .STK-MED ONE Stop: 11/08/24 14:29 Last Admin: 11/08/24 15:31 Dose: Not Given Documented By: ARGENTINA Non-Admin Reason: Override Medication Sennosides (Senna Tablet) 1 tab PO QDAY [facility]; Protocol Stop: 12/14/24 08:59 Last Admin: 11/14/24 08:56 Dose: 1 tab Documented By: DIGNA Sertraline HCl (Sertraline Hcl 25 Mg Tablet) 50 mg PO HS [facility] Stop: 12/07/24 20:59 Last Admin: 11/07/24 20:11 Dose: Not Given Documented By: DYLAN Non-Admin Reason: pt takes it in the morning Sertraline HCl (Sertraline Hcl 25 Mg Tablet) 50 mg PO QDAY [facility] Stop: 12/08/24 08:59 Last Admin: 11/14/24 08:56 Dose: 50 mg Documented By: Admin: 11/13/24 08:49 Dose: 50 mg Documented By: Admin: 11/12/24 08:52 Dose: 50 mg Documented By: Admin: 11/11/24 08:15 Dose: 50 mg Documented By: Admin: 11/10/24 08:51 Dose: 50 mg Documented By: Admin: 11/09/24 08:33 Dose: 50 mg Documented By: zafar Admin: 11/08/24 10:05 Dose: 50 mg Documented By: zafar See above Consultations Consultation(s) initiated? (list below): No Diagnosis Shortness of Breath Differential Diagnosis: acute exacerbation of chronic obstructive airways disease, community acquired pneumonia and pulmonary embolism Most likely diagnosis given after review of the tests above:: shortness of breath Admission Indicated Admission indicated?: not indicated Explain why admission is indicated or not indicated:: Signed out pending final disposition Admission Request Was there a request for admission?: No Disposition Plan Disposition Plan: other (specify) (Signed out pending CTs and final disposition ) Discharge Plan Plan Patient Disposition: Admit Acute Care w/in Hospital Problem List Clinical Impression: Shortness of breath
[2024-11-06 17:06] LABS: Lactate (Lactic Acid) 1.5 mMol/L (0.4-2.0)
[2024-11-06 17:07] LABS: Basophils # (Auto) 0.1 Thou/mm3 (0.0-0.2); Basophils % (Auto) 1 % (0-2.5); Eosinophils # (Auto) 0.7 Thou/mm3 (0.0-0.5); Eosinophils % (Auto) 8 % (0-10); Hematocrit 45.3 % (36.0-46.0); Hemoglobin 14.7 g/dL (12.0-16.0); Immature Granulocytes Auto 0.02 Thou/mm3 (0.00-0.00); Lymphocytes # (Auto) 1.0 Thou/mm3 (1.0-4.8); Lymphocytes % (Auto) 12 % (10-50); Mean Corpuscular HGB Conc 32.5 g/dl (31.0-37.0); Mean Corpuscular Hemoglobin 28.4 pg (25.0-35.0); Mean Corpuscular Volume 88 fL (80-100); Monocytes # (Auto) 0.9 Thou/mm3 (0.0-0.8); Monocytes % (Auto) 10 % (0-12); Neutrophils # (Auto) 6.0 Thou/mm3 (1.8-7.7); Neutrophils % (Auto) 70 % (37-80); Nucleated Red Blood Cell # 0.00 Thou/mm3 (0.00-0.00); Nucleated Red Blood Cell % 0 /100 WBC (0); Platelet Count 371 Thou/mm3 (140-440); RDW Standard Deviation 42.9 fL (36.4-46.3); Red Blood Count 5.18 Miln/mm3 (4.00-5.20); White Blood Count 8.6 Thou/mm3 (3.6-11.0)
[2024-11-06 17:26] LABS: INR 1.1 (0.9-1.3); Partial Thromboplastin Time 26.8 Seconds (22.0-36.0); Prothrombin Time 11.6 Seconds (9.0-12.2)
[2024-11-06 17:31] LABS: B-Type Natriuretic Peptide 25 pg/mL (0-100)
[2024-11-06 17:40] LABS: Alanine Aminotransferase 10 U/L (10-49); Albumin, Serum 4.3 gm/dL (3.4-4.8); Albumin/Globulin Ratio 1.7 (1.2-2.2); Alkaline Phosphatase 78 U/L (46-116); Anion Gap 14 (7-16); Aspartate Amino Transferase 15 U/L (0-34); BUN/Creatinine Ratio 23 Ratio (12-20); Bilirubin,Total 0.5 mg/dL (0.3-1.2); Blood Urea Nitrogen 18 mg/dL (9-23); Calcium 9.3 mg/dL (8.3-10.6); Calcium (Corrected) 9.3 mg/dL (8.5-10.1); Carbon Dioxide 20.4 mMol/L (20.0-31.0); Chloride 105 mMol/L (98-107); Creatinine (Component) 0.8 mg/dL (0.6-1.3); Estimated Creatinine Clearance 66.9 mL/min (>60); Globulin 2.5 gm/dL (2.3-3.5); Glucose 77 mg/dL (74-106); Magnesium 2.0 mg/dL (1.6-2.6); Osmolality,Calculated 278 (275-295); Potassium 3.7 mMol/L (3.4-5.1); Procalcitonin 0.10 ng/ml (0.0-0.49); Sodium 139 mMol/L (136-145); Total Protein 6.8 gm/dL (5.7-8.2); Troponin I < 0.020 ng/mL (0.0-0.045); eGFR > 60 See Note
--- NOTE | 2024-11-06 18:25 | EDNOTE_ITS ---
Emergency Room Addendum <Consuelo Clinton - Last Filed: 11/06/24 19:35> Addendum Narrative: 1800: Care assumed from Dr. Rivera, the previous shift emergency physician. Past medical, surgical, social and family history reviewed. Vitals and home medications reviewed. Results and treatment plan discussed. I will assume the care of the patient at this time and will follow the patient. Please refer to the emergency department record for history and examination from initial visit. RADIOLOGY RESULTS: [facility] Report Signed Patient: LINWOOD CARROLL Record#: [id number] Birthdate: 1960 Age/Sex: 64 / F [facility] Attending Dr: Ordering Physician: Corina Rivera MD Date of Service: 11/06/24 Procedure(s): CT chest wo con Accession Number(s): [id number] cc: Trevor Suggs MD; Cipriano Castellon MD; Corina Rivera MD~ Examination: CT chest, without intravenous contrast. Sagittal and coronal 2-D reconstructions. Exam date and time: November 06, 2024, 1903 hrs., Comparison July 10, 2024 Indications: Shortness of breath one week, diagnosis malignant neoplasm thyroid gland 2021, diagnosis bilateral breast cancer mastectomy, at least 30 noncalcified pulmonary nodules throughout the lungs on CT chest July 10, 2024 CTDI:vol (mGy) 12.8 DLP: (mGycm) 451 Technique: Multiple 3.0 mm axial sections of the chest to been obtained. Bone and lung density settings are obtained. Sagittal and coronal 2-D reconstructions have been obtained. Low dose protocols were performed. One or more of the following dose reduction techniques were used; automated exposure control, adjustment of the mA and/or KV according to patient size, use of iterative reconstruction technique. Findings: No thoracic aortic aneurysm dilatation Pulmonary artery segments are not enlarged. Massive right pleural effusion with total atelectasis right lung New and enlarging pulmonary nodules left lung consistent with progression of metastatic disease This study has been performed without contrast which limits assessment for mediastinal lymphadenopathy No definite liver lesions The gallbladder is partly visualized and distended Spleen is not enlarged No adrenal metastatic disease Moderate osteopenia Impression: Massive right pleural effusion with total atelectasis right lung Enlarging pulmonary nodules left lung consistent with progression of metastatic disease compared with July 10, 2024 Dictated By: Cipriano Castellon MD Signed By: <Electronically signed by Cipriano Castellon MD in OV> 11/06/241921 [facility] Signed Patient: LINWOOD CARROLL Record#: [id number] Birthdate: 1960 Age/Sex: 64 / F Location: [facility] Attending Dr: Ordering Physician: Corina Rivera MD Date of Service: 11/06/24 Procedure(s): CT angio chest Accession Number(s): [id number] cc: Trevor Suggs MD; Cipriano Castellon MD; Corina Rivera MD~ Examination: CTA chest with intravenous contrast 2-D reconstructions 3-D reconstructions, vascular Date and time of exam: November 06, 2024 1905 hrs. Indications: Thyroid carcinoma diagnosis, bilateral breast carcinoma diagnosis, massive right pleural effusion and shortness of breath today CTDI: vol (mGy) 19.3 DLP: (mGycm) 425 Technique: Multiple axial sections of the thorax have been obtained. 3 mm slice thickness, from below the hemidiaphragms to above the apices of the lungs. Mediastinal and lung density settings have been obtained. 2-D sagittal and coronal reconstructions. 3-D angiographic renderings, 3-D volume renderings, 3D post processing, vascular maximum intensity projections obtained. Contrast administered is 100 cc Isovue-370. Low dose protocols were performed. One or more of the following dose reduction techniques were used; automated exposure control, adjustment of the mA and/or KV according to patient size, use of iterative reconstruction technique. Findings: No thoracic aortic aneurysm dilatation or dissection No soft tissue masses in the thyroid bed Pulmonary artery segments are not enlarged No pulmonary artery filling defects Massive right pleural effusion with collapse of the right lung Multiple pulmonary nodules, progression of pulmonary nodular metastatic disease compared with July 10, 2024 No definite paratracheal or tracheobronchial or hilar lymphadenopathy Impression: Negative for pulmonary artery emboli Negative for pulmonary artery hypertension Massive right pleural effusion with total collapse of the right lung Progression of pulmonary nodular metastatic disease left lung compared with July 10, 2024 Dictated By: Cipriano Castellon MD Signed By: <Electronically signed by Cipriano Castellon MD in OV> 11/06/241925 <Pavel Guerra, DO - Last Filed: 11/07/24 00:59> Addendum Narrative: 1800: Care assumed from Dr. Rivera, the previous shift emergency physician. Past medical, surgical, social and family history reviewed. Vitals and home medications reviewed. Results and treatment plan discussed. I will assume the care of the patient at this time and will follow the patient. Please refer to the emergency department record for history and examination from initial visit. RADIOLOGY RESULTS: [facility] Report Signed Patient: LINWOOD CARROLL. Record#: [id number] Birthdate: 1960 Age/Sex: 64 / F Location: [facility] Attending Dr: Ordering Physician: Corina Rivera MD Date of Service: 11/06/24 Procedure(s[facility] Accession Number(s): [id number] cc: Trevor Suggs MD; Cipriano Castellon MD; Corina Rivera MD~ Examination: CT chest, without intravenous contrast. Sagittal and coronal 2-D reconstructions. Exam date and time: November 06, 2024, 1903 hrs., Comparison July 10, 2024 Indications: Shortness of breath one week, diagnosis malignant neoplasm thyroid gland 2021, diagnosis bilateral breast cancer mastectomy, at least 30 noncalcified pulmonary nodules throughout the lungs on CT chest July 10, 2024 CTDI:vol (mGy) 12.8 DLP: (mGycm) 451 Technique: Multiple 3.0 mm axial sections of the chest to been obtained. Bone and lung density settings are obtained. Sagittal and coronal 2-D reconstructions have been obtained. Low dose protocols were performed. One or more of the following dose reduction techniques were used; automated exposure control, adjustment of the mA and/or KV according to patient size, use of iterative reconstruction technique. Findings: No thoracic aortic aneurysm dilatation Pulmonary artery segments are not enlarged. Massive right pleural effusion with total atelectasis right lung New and enlarging pulmonary nodules left lung consistent with progression of metastatic disease This study has been performed without contrast which limits assessment for mediastinal lymphadenopathy No definite liver lesions The gallbladder is partly visualized and distended Spleen is not enlarged No adrenal metastatic disease Moderate osteopenia Impression: Massive right pleural effusion with total atelectasis right lung Enlarging pulmonary nodules left lung consistent with progression of metastatic disease compared with July 10, 2024 Dictated By: Cipriano Castellon MD Signed By: <Electronically signed by Cipriano Castellon MD in OV> 11/06/241921 [facility] Signed Patient: LINWOOD CARROLL Record#: [id number] Birthdate: 1960 Age/Sex: 64 / F Location: [facility] Attending Dr: Ordering Physician: Corina Rivera MD Date of Service: 11/06/24 Procedure(s): CT angio chest Accession Number(s): [id number] cc: Trevor Suggs MD; Cipriaon Castellon MD; Corina Rivera MD~ Examination: CTA chest with intravenous contrast 2-D reconstructions 3-D reconstructions, vascular Date and time of exam: November 06, 2024 1905 hrs. Indications: Thyroid carcinoma diagnosis, bilateral breast carcinoma diagnosis, massive right pleural effusion and shortness of breath today CTDI: vol (mGy) 19.3 DLP: (mGycm) 425 Technique: Multiple axial sections of the thorax have been obtained. 3 mm slice thickness, from below the hemidiaphragms to above the apices of the lungs. Mediastinal and lung density settings have been obtained. 2-D sagittal and coronal reconstructions. 3-D angiographic renderings, 3-D volume renderings, 3D post processing, vascular maximum intensity projections obtained. Contrast administered is 100 cc Isovue-370. Low dose protocols were performed. One or more of the following dose reduction techniques were used; automated exposure control, adjustment of the mA and/or KV according to patient size, use of iterative reconstruction technique. Findings: No thoracic aortic aneurysm dilatation or dissection No soft tissue masses in the thyroid bed Pulmonary artery segments are not enlarged No pulmonary artery filling defects Massive right pleural effusion with collapse of the right lung Multiple pulmonary nodules, progression of pulmonary nodular metastatic disease compared with July 10, 2024 No definite paratracheal or tracheobronchial or hilar lymphadenopathy Impression: Negative for pulmonary artery emboli Negative for pulmonary artery hypertension Massive right pleural effusion with total collapse of the right lung Progression of pulmonary nodular metastatic disease left lung compared with July 10, 2024 Dictated By: Cipriano Castellon MD Signed By: <Electronically signed by Cipriano Castellon MD in OV> 11/06/241925 I interpreted the radiographic studies. Patient has a very large right sided pleural effusion. Patient was in need of a thoracentesis. After consent was obtained, a thoracentesis was performed by myself in the emergency room. Procedure note: After consent was obtained a right sided posterior lateral thoracentesis was carried out here in the emergency room with ultrasound guidance. Approximately the T8 interspace was cleansed using chlorhexidine and anesthetized with 1% lidocaine without epinephrine. With the assistance of ultrasound and with the catheter over needle technique the right sided hemithorax was entered and approximately 2000 cc of niño clear-colored fluid was removed from the right hemothorax. Follow-up chest x-ray still shows a moderately large right-sided pleural effusion that could be loculated. No obvious pneumothorax. Patient tolerated the procedure well. I had already discussed admission of this patient with the hospitalist who will admit this patient to the hospital for further treatment and evaluation for her very large right sided pleural effusion.
[2024-11-06] MEDS: ACETAMINOPHEN 325 MG TABLET 650 MG PO (18:32)
[2024-11-06 18:35] VITALS: BP 139/72; PULSE 78; RESP 21; TEMP 37.5; O2SAT 97
[2024-11-06 19:35] VITALS: BP 121/63; PULSE 72; RESP 21; TEMP 36.9; O2SAT 97
--- NOTE | 2024-11-06 22:24 | PD.RESHP ---
Documentation for date of: 11/06/24 [facility] History of Present Illness Chief complaint: Dyspnea/ shortness of breath History of present illness: Miss Andrew is a 64-year-old female past medical significant of asthma, breast cancer s/p mastectomy 2017, thyroid cancer s/p thyroidectomy 2021 and radiation therapy, who presented to the ED on 11/06/2024 with chief complaint of shortness of breath, generalized weakness and chills for the past two weeks. Two weeks ago, she saw her PCP and was diagnosed with emphysema. She was started on a course of steroids and Zyrtec, which she took for one week without symptom improvement. During a follow-up visit one week ago, her medications were changed, but her symptoms persisted. This morning, patient saw her PCP ordered a chest x-ray, which revealed a right-sided pleural effusion. She was advised to present to the ED for further evaluation and treatment. Upon evaluation patient reported shortness of breath, cough that worsened in the last few days and impacted her daily activities like walking, cooking and bathing. She took a home medication of her asthma which mildly resolved the symptoms. She does not use home oxygen. She noted that generalized weakness became prevalent when hormone therapy was started. However it comes and goes. She also endorses chest discomfort lilke burning reflux sensation mid chest that improved with sternal rub, denies pleuritic chest pain. Also for last few days patient has noted right shoulder blade pain that worsens with shoulder strain but denies any recent fall or trauma. Denies fever, weight loss, abdominal pain, nausea, vomiting, or urinary symptoms. The patient also reports that since June 2024, imaging has shown spots in her lungs, and she has been referred to [facility] for a lung biopsy. Although she was originally scheduled for a consultation tomorrow, she has rescheduled it for 11/21/2024. ED Course: -Initial vitals were BP 149/84, pulse 81, temp 98.5, O2 sat 97 on 2 L NC -Labs CBC with normal, CHEM panel within normal limits. UA negative for UTI -Imaging included: Chest CT massive right pleural effusion with total atelectasis right lung, enlarging pulmonary nodules left lung consistent with progression of metastatic disease compared with July 10, 2024. CXR showed total opacification right hemithorax, likely massive pleural effusion. Chest CTA negative for pulmonary artery emboli, Massive right pleural effusion with total collapse of the right lung -In the ED, patient was given tylenol for shoulder pain. She continued to be in moderate respiratory distress and nasal cannula was increased from [address] chest showed massive pleural effusion and a thoracentesis was performed. Drained 2 L of nonbloody pleural fluids. Pt shortness of breath mildly improved. -Patient was admitted for acute hypoxic respiratory failure secondary to right large pleural effusion. Review of Systems Review of systems otherwise negative except what is mentioned above. Past Medical History: papillary thyroid carcinoma, cancer associated depression, mentioned above Family History: Noncontributory Surgical History: thyroidectomy and bilateral neck dissection 10/06/[address] Chandler Crouch in [place]. Breast cancer status post double mastectomy early stage being followed by Dr. Almas Wilks patient with estrogen modulators. Social History: Denies history of smoking, denies current alcohol use, denies recreational drug use Current Medications: Levothyroxine 75, Zoloft 50 mg once daily, celecoxib 200 once daily Allergies: Sulfa, paper tape Exam Vital Signs Temp Pulse Resp BP Pulse Ox O2 Del Method O2 Flow Rate 98.5 F 72 21 H 121/63 97 Nasal Cannula 2 11/06/24 19:35 11/06/24 19:35 11/06/24 19:35 11/06/24 19:35 11/06/24 19:35 11/06/24 19:35 11/06/24 19:35 Narrative Exam General: Alert, moderate acute distress.Conversational and non-toxic appearing. Skin: Warm, dry, intact. No rash or ecchymoses. Head: Normocephalic, atraumatic. Eye: Normal conjunctiva, PERRL. Throat: Oral mucosa moist. No obvious lesions in oropharynx. Cardiovascular: Regular rate and rhythm, no murmur, +S1/S2. Respiratory: Low breath sounds right lung, no breath sound Left lung, no crackles, no wheezing. Gastrointestinal: Soft, nontender, non-distended. No guarding or rebound tenderness. Extremities: No edema, no cyanosis, no clubbing. Neuro: Alert and oriented x3.No focal deficits observed. Conversant, moving all extremities. No overt cerebellar signs/incoordination. Psychiatric: Cooperative, appropriate affect Results: Labs 11/07/24 04:56 11/07/24 04:56 Labs: Short CBC 11/06/24 Range/Units 16:58 WBC 8.6 (3.6-11.0) Thou/mm3 Hgb 14.7 (12.0-16.0) g/dL Hct 45.3 (36.0-46.0) % Plt Count 371 D (140-440) Thou/mm3 BMP 11/06/24 16:58 Sodium 139 Potassium 3.7 Chloride 105 Carbon Dioxide 20.4 BUN 18 Creatinine 0.8 Glucose 77 Calcium 9.3 Cardiac Enzymes 11/06/24 Range/Units 16:58 Troponin I < 0.020 (0.0-0.045) ng/mL Liver Function 11/06/24 Range/Units 16:58 Total Bilirubin 0.5 (0.3-1.2) mg/dL AST 15 (0-34) U/L ALT 10 (10-49) U/L Alkaline Phosphatase 78 (46-116) U/L Albumin 4.3 (3.4-4.8) gm/dL Quality Measures Quality Measures VTE prophylaxis Advance care planning discussed with:: patient Medications Home Medications and Allergies Home Medications ?Medication ?Instructions ?Recorded ?Confirmed ?Type Fluticasone/Vilanterol (Breo 1 ea IH QDAY Asthma #0 ea 02/02/17 11/07/24 History Ellipta 100-25 Mcg INH) letrozole 2.5 mg tablet 2.5 mg PO .am 01/21/21 11/07/24 History sertraline 50 mg tablet 50 mg PO HS 01/21/21 11/07/24 History albuterol sulfate 90 mcg/actuation 1 puff inhalation PRN PRN 11/07/24 11/07/24 History aerosol inhaler shortness of breath or wheezing celecoxib 200 mg capsule 200 mg PO Q24H 11/07/24 11/07/24 History letrozole 2.5 mg tablet (Femara) 2.5 mg PO Q24H 11/07/24 11/07/24 History levothyroxine 75 mcg tablet 75 mcg PO .morning 11/07/24 11/07/24 History Allergies Allergy/AdvReac Type Severity Reaction Status Date / Time tramadol Allergy Severe RASH, SOB Verified 11/06/24 16:14 SULFA Allergy Severe RASH, SOB Uncoded 11/06/24 16:14 PAPER TAPE Allergy Mild ICHY, Uncoded 11/06/24 16:14 LOCALIZED RASH Visit Medications Acetaminophen (Acetaminophen 325 Mg Tablet) 650 mg PO Q6H PRN PRN Reason: Fever >101.5 Stop: 12/06/24 22:15 Discontinued Medications Acetaminophen (Acetaminophen 325 Mg Tablet) 650 mg PO X1 ONE Stop: 11/06/24 18:01 Last Admin: 11/06/24 18:32 Dose: 650 mg Assessment & Plan Plan Miss Andrew is a 64-year-old female past medical significant of asthma, breast cancer s/p mastectomy 2017, thyroid cancer s/p thyroidectomy 2021 and radiation therapy, who presented to the ED on 11/06/2024 with chief complaint of shortness of breath, generalized weakness and chills for the past two weeks.Patient was admitted for acute hypoxic respiratory failure secondary to right large pleural effusion. #Acute hypoxic respiratory failure secondary to #Massive right-sided pleural effusion with total atelectasis right lung # Status post thoracentesis 11/07/24 #Enlarging pulmonary nodules #HX ashtma Requiring 4L supplemental oxygen to maintain SpO2 >93 on admission and does not use home oxygen. Endorses cough, dyspnea and denies pleuritic chest pain. Has a history of asthma usually well-controlled at home with inhalers and Ellipta, however symptomatic dyspnea for the last few days. Worsening shortness of breath is likely due to the massive pleural effusion in the R lung. Patient is aware of pulmonary nodules, had rescheduled outpatient lung biopsy for 11/21/2024. COVID, flu negative. Previous history of [place] [address] Chest CT massive right pleural effusion with total atelectasis right lung, enlarging pulmonary nodules left lung consistent with progression of metastatic disease compared with July 10, 2024 imaging. CXR showed total opacification right hemithorax. Chest CTA negative for pulmonary artery emboli, massive right pleural effusion with total collapse of the right lung Thoracentesis drain 2 L nonbloody, cloudy yellow pleural fluid -Ceftriaxone 1g mg IV qday -DuoNebs q6h -Supplemental O2, titrate as tolerated to maintain SpO2 >93% -Cocci serology -Blood cultures, pending -Pleural fluids analysis, collected, pending analysis - Pain control - Oncology consulted, recs appreciated. #Hx Breast cancer s/p mastectomy 2017 -Follows oncology outpatient - hormone therapy letrozole 2.5mg #Hx thyroid cancer s/p thyroidectomy 2021 - Follows with oncology Dr. Flowers - resume Home levothyroxine 75mg ACBR #Depression Patient diagnosed s/p breast cancer. -Resume home sertraline 50 mg Hospital management: Lines: peripheral IV Diet: regular DVT prophylaxis: Heparin SC Disposition: Med/tele status status thoracentesis CODE STATUS: Full code Patient seen and assessed under supervision of attending physician and discuss with senior resident Dr. Guerrero PGY-2 Jenny Swain MD PGY-1, Internal Medicine Please note: this document was transcribed using voice recognition technology; minor inaccuracies may be present. Attending Provider Attestation/Addendum After examination of the patient and review of the clinical data I feel that this patient needs admission to the hospital for further treatment/evaluation. Plan of care discussed with patient and is in agreement. I Varsha Caldwell MD, attest that I was physically present for shannon portions of evaluation, and examined patient, labs and imagings and plan of care were discussed with IM residents team, and I agree with the findings and plans documented above.
[2024-11-06 22:48] LABS: Coccid Serology, CF (UCD)* See Sep Rpt
[2024-11-06 22:55] VITALS: BP 119/81; PULSE 65; RESP 17; TEMP 36.9; O2SAT 97
[2024-11-06 23:44] LABS: Cholesterol 129 mg/dL (132-200)
[2024-11-07] VITALS (13 sets, daily range): BP systolic 108–140; BP diastolic 62–94; PULSE 67–90; RESP 13–28; TEMP 36.2–37.2; O2SAT 96–100; BMI 31.5
--- NOTE | 2024-11-07 00:19 | XR_ITS ---
Examination: AP chest single view Technique one AP portable upright chest single view Date and time: November 07, 2024 0220 hrs., Comparison 11/06/2024 Indications: Postthoracentesis Findings: Decrease in massive right pleural effusion Considerable fluid remains in the right hemithorax Mild prominence left ventricle Moderate osteopenia Impression: Decrease in massive right pleural effusion No pneumothorax
[2024-11-07 00:53] LABS: Pleural Fluid Mononuclear 75.2 %; Pleural Fluid Polynuclear 24.8 %; Pleural Fluid RBC 0.003 /cmm; Pleural Fluid WBC 1713 /cmm
[2024-11-07 00:55] LABS: Pleural Fluid Appearance Clear; Pleural Fluid Color Straw
[2024-11-07] MEDS: DOXYCYCLINE INJ 100 MG in SODIUM CHLORIDE 0.9% (POP) 100 ML IV (01:06)
[2024-11-07] MEDS: cefTRIAXone/D5w 1gm IV premix 1 GM/50 ML BAG IV ×2 (01:06→08:39)
[2024-11-07 01:12] LABS: Amylase,Pleural Fluid < 20 IU/L; Glucose,Pleural Fluid 54 mg/dL; LDH,Pleural Fluid 194 IU/L; Protein Total,Pleural Fluid 4.5 g/dL
[2024-11-07] MEDS: LEVOTHYROXINE SODIUM 25 MCG TABLET 75 MCG PO (05:06)
[2024-11-07 06:09] LABS: Basophils # (Auto) 0.1 Thou/mm3 (0.0-0.2); Basophils % (Auto) 1 % (0-2.5); Eosinophils # (Auto) 0.5 Thou/mm3 (0.0-0.5); Eosinophils % (Auto) 5 % (0-10); Hematocrit 45.0 % (36.0-46.0); Hemoglobin 14.5 g/dL (12.0-16.0); Immature Granulocytes Auto 0.03 Thou/mm3 (0.00-0.00); Lymphocytes # (Auto) 1.5 Thou/mm3 (1.0-4.8); Lymphocytes % (Auto) 14 % (10-50); Mean Corpuscular HGB Conc 32.2 g/dl (31.0-37.0); Mean Corpuscular Hemoglobin 29.3 pg (25.0-35.0); Mean Corpuscular Volume 91 fL (80-100); Monocytes # (Auto) 0.9 Thou/mm3 (0.0-0.8); Monocytes % (Auto) 8 % (0-12); Neutrophils # (Auto) 7.5 Thou/mm3 (1.8-7.7); Neutrophils % (Auto) 72 % (37-80); Nucleated Red Blood Cell # 0.00 Thou/mm3 (0.00-0.00); Nucleated Red Blood Cell % 0 /100 WBC (0); Platelet Count 331 Thou/mm3 (140-440); RDW Standard Deviation 45.1 fL (36.4-46.3); Red Blood Count 4.95 Miln/mm3 (4.00-5.20); White Blood Count 10.4 Thou/mm3 (3.6-11.0)
[2024-11-07 06:53] LABS: Alanine Aminotransferase < 7 U/L (10-49); Albumin, Serum 3.6 gm/dL (3.4-4.8); Albumin/Globulin Ratio 1.4 (1.2-2.2); Alkaline Phosphatase 70 U/L (46-116); Anion Gap 12 (7-16); Aspartate Amino Transferase 10 U/L (0-34); BUN/Creatinine Ratio 20 Ratio (12-20); Bilirubin,Total 0.4 mg/dL (0.3-1.2); Blood Urea Nitrogen 14 mg/dL (9-23); Calcium 8.8 mg/dL (8.3-10.6); Calcium (Corrected) 9.1 mg/dL (8.5-10.1); Carbon Dioxide 23.9 mMol/L (20.0-31.0); Chloride 104 mMol/L (98-107); Creatinine (Component) 0.7 mg/dL (0.6-1.3); Estimated Creatinine Clearance 76.5 mL/min (>60); Globulin 2.5 gm/dL (2.3-3.5); Glucose 158 mg/dL (74-106); Magnesium 1.7 mg/dL (1.6-2.6); Osmolality,Calculated 282 (275-295); Phosphorous 2.8 mg/dL (2.4-5.1); Potassium 3.8 mMol/L (3.4-5.1); Sodium 140 mMol/L (136-145); Total Protein 6.1 gm/dL (5.7-8.2); eGFR > 60 See Note
[2024-11-07] MEDS: HEPARIN SOD INJ 5000 UNIT/ML VIAL SC (08:30)
[2024-11-07] MEDS: Magnesium Sulfate 4 GM Ivpb 4 GM/50 ML BAG IV (08:39)
[2024-11-07] MEDS: ACETAMINOPHEN 325 MG TABLET 650 MG PO (08:42)
--- NOTE | 2024-11-07 08:55 | ESCONSULT_ITS ---
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 Patient also has stage II differentiated carcinoma underwent resection radioiodine and eventual external beam radiation at [facility] to the neck. Patient had suspected lung lesions and underwent biopsy [place] 10/06/2021 which were negative. Lung lesions were noted earlier this year and was scheduled to see [facility] doctors who were getting ready to biopsy one of the lesions. Patient was admitted yesterday with shortness of breath generalized weakness and chills with CT showing massive right pleural effusion with total collapse of the right lung lung with progression of pulmonary nodule met disease left lung compared to June 2024. Underwent thoracentesis with her breathing better this a.m. with chest x-ray showing decrease in the pleural effusion with no pneumothorax. Patient now referred for oncological consultation. 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 Stage II thyroid cancer thyroidectomy radioactive iodine external beam asthma Meds Home Medications and Allergies Home Medications ?Medication ?Instructions ?Recorded ?Confirmed ?Type Fluticasone/Vilanterol (Breo 1 ea IH QDAY Asthma #0 ea 02/02/17 11/07/24 History Ellipta 100-25 Mcg INH) letrozole 2.5 mg tablet 2.5 mg PO .am 01/21/2111/07 History sertraline 50 mg tablet 50 mg PO HS 01/21/21 5 History albuterol sulfate 90 mcg/actuation 1 puff inhalation P RN PRN 11/07/24 11/07/24 History aerosol inhaler shortness of breath or wheez ing celecoxib 200 mg capsule 200 mg PO Q24H 11/07/2410/22 History letrozole 2.5 mg tablet (Femara) 2.5 mg PO Q24H 11/07/24 History levothyroxine 75 mcg tablet 75 mcg PO .morning 5 11/07/24 History Allergies Allergy/AdvReac Type Severity Reaction Status Date / Time tramadol Allergy Severe RASH, SOB Verified 11/06/24 16:14 SULFA Allergy Severe RASH, SOB Uncoded 11/06/24 16:14 PAPER TAPE Allergy Mild ICHY, Uncoded 11/06/24 16:14 LOCALIZED RASH Exam Vital Signs Temp Pulse Resp BP Pulse Ox O2 Del Method O2 Flow Rate 97.5 F 68 22 H 121/76 96 Nasal Cannula 4 11/07/24 08:00 11/07/24 08:00 11/07/24 08:00 11/07/24 08:00 11/07/24 08:00 11/07/24 08:00 11/07/24 04:00 Results Labs 11/07/24 04:56 11/07/24 04:56 Labs: Short CBC 11/06/24 11/07/24 Range/Units 16:58 04:56 WBC 8.6 10.4 (3.6-11.0) Thou/mm3 Hgb 14.7 14.5 (12.0-16.0) g/dL Hct 45.3 45.0 (36.0-46.0) % Plt Count 371 D 331 D (140-440) Thou/mm3 BMP 11/06/24 11/07/24 16:58 04:56 Sodium 139 140 Potassium 3.7 3.8 Chloride 105 104 Carbon Dioxide 20.4 23.9 BUN 18 14 Creatinine 0.8 0.7 Glucose 77 158 H D Calcium 9.3 8.8 Cardiac Enzymes 11/06/24 Range/Units 16:58 Troponin I < 0.020 (0.0-0.045) ng/mL Liver Function 11/06/24 11/07/24 Range/Units 16:58 04:56 Total Bilirubin 0.5 0.4 (0.3-1.2) mg/dL AST 15 10 (0-34) U/L ALT 10 < 7 L (10-49) U/L Alkaline Phosphatase 78 70 (46-116) U/L Albumin 4.3 3.6 D (3.4-4.8) gm/dL Assessment and Plan Additional Assessment & Plan Additional Plan: 1. Massive right pleural effusion status postthoracentesis in patient with history of early-stage breast cancer and moderate stage II thyroid cancer. 2. Will check to see if biopsy of the lung nodules can be done here. Patient had been scheduled to get it done at [facility]. 3. Check tumor markers CEA CA 19?9 CA125 CA 15-3 thyroglobulin 4. Will follow. Thank you for allowing me to evaluate this patient. Spoke with resident physician Dr Wang
--- NOTE | 2024-11-07 09:30 | CHAP ---
Visited with patient and gave encouragement and prayer.
[2024-11-07 09:32] LABS: LDH (Lactate Dehydrogenase) 127 U/L (120-246)
--- NOTE | 2024-11-07 10:35 | ESPR_ITS ---
<Statement entered by Dmitry Wang MD - 11/07/24 15:52> Patient is seen and examined at bedside. Admitted overnight in view of right pleural effusion and 900 cc of pleural centesis is done. Patient had history of thyroid cancer diagnosed in 2021 status post resection and radiation therapy, right breast carcinoma status post double mastectomy in 2018 followed by hormonal therapy, vocal cord paralysis unilateral, also noted to have lung nodule 2 years ago and is following up with repeat scans, patient was supposed to go to [facility] for consultation in view of that lung nodule but as the patient's shortness of breath is getting worsened over the last 3 weeks, chest x-ray was done by her primary care doctor and noted to have a severe large right pleural effusion for which he sent her to the ED. Denies fever, nausea, vomitings, diarrhea, loose stools. Vitals are stable. Patient is saturating 98% on 2 L oxygen. On physical examination, noted to have decreased breath sounds at the right basilar area. Labs done this morning are unremarkable except for elevated CA 125. Pleural fluid analysis is suggestive of exudative effusion, likely malignant in the setting of extensive malignancy history. Pleural fluid cytology is sent, pending results. Radiologist, Dr. Flowers is following the patient and he recommended biopsy of the lung nodule. Interventional radiologist, Dr. Yoon was consulted and he recommended no biopsy inpatient as the nodule was so small still and recommended to follow-up on outpatient basis for the biopsy. Will continue antibiotics for the suspected underlying possible pneumonia, will repeat chest x-ray in the next 24 to 48 hours to look for reaccumulation of the fluid. I have personally seen and examined the patient, agree with residents assessment and plan Patient plan of care was discussed with the attending physician, Dr. Dustin Wang, PGY2 Documentation for date of: 11/07/24 Subjective Subjective Interval history: Overnight events: Patient admitted overnight. Patient had thoracentesis overnight. Patient was seen and examined at bedside. AM vitals and labs reviewed. Patient saturating well, 98% on 2 L nasal cannula. Patient has no acute complaints at this time. Does note that it hurts when she has to take a deep breath. Noted lack of lung sounds on right lower lobe. Pleural fluid analysis suggestive of exudative effusion. Pleural fluid cytology pending. Discussed case with interventional radiology, who recommends outpatient biopsy of lung nodules. Carcinoembryonic antigen ordered, resulted as 1.5. CA 15?13 antigen ordered, resulted as 2.3. CA 19?19 antigen ordered, pending. Thyroglobulin ordered, pending. Will continue to monitor status of R pleural effusion. Review of systems otherwise negative except for what is mentioned above. Exam Vital Signs Temp Pulse Resp BP Pulse Ox O2 Del Method O2 Flow Rate 97.5 F 68 22 H 121/76 96 Nasal Cannula 4 11/07/24 08:00 11/07/24 08:00 11/07/24 08:00 11/07/24 08:00 11/07/24 08:00 11/07/24 08:00 11/07/24 04:00 Narrative Exam Physical Exam: General: Alert, no acute distress. Skin: Warm, dry, intact. Head: Normocephalic, atraumatic. Eye: Normal conjunctiva, PERRL. Cardiovascular: Regular rate and rhythm, no murmur, +S1/S2. Respiratory:Respirations unlabored, no crackles, no wheezing. No breath sounds appreciated on RLL. Gastrointestinal: Soft, nontender, non-distended. No guarding or rebound tenderness. Extremities: No edema, no cyanosis, no clubbing. Neuro: No focal deficits observed. Conversant, moving all extremities. No overt cerebellar signs/incoordination. Psychiatric: Cooperative, appropriate affect. Objective Labs 11/08/24 05:26 11/08/24 05:26 Labs: Laboratory Results - last 24 hr 11/06/24 11/06/24 11/06/24 16:40 16:58 22:48 WBC 8.6 RBC 5.18 Hgb 14.7 Hct 45.3 MCV 88 MCH 28.4 MCHC 32.5 RDW Std Deviation 42.9 Plt Count 371 D Neut % (Auto) 70 Lymph % (Auto) 12 [place] % (Auto) 10 Eos % (Auto) 8 Baso % (Auto) 1 Neut # (Auto) 6.0 Lymph # (Auto) 1.0 [place] # (Auto) 0.9 H Eos # (Auto) 0.7 H Baso # (Auto) 0.1 Immature Gran # (Auto) 0.02 H Absolute Nucleated RBC 0.00 Immature Gran % 0 Nucleated RBC % 0 PT 11.6 INR 1.1 APTT 26.8 Sodium 139 Potassium 3.7 Chloride 105 Carbon Dioxide 20.4 Anion Gap 14 BUN 18 Creatinine 0.8 Estim Creat Clear Calc 66.9 eGFR > 60 BUN/Creatinine Ratio 23 H Glucose 77 Calculated Osmolality 278 Lactic Acid 1.5 Calcium 9.3 Corrected Calcium 9.3 Phosphorus Magnesium 2.0 Total Bilirubin 0.5 AST 15 ALT 10 Alkaline Phosphatase 78 Lactate Dehydrogenase Troponin I < 0.020 B-Natriuretic Peptide 25 Total Protein 6.8 Albumin 4.3 Globulin 2.5 Albumin/Globulin Ratio 1.7 Cholesterol 129 L Procalcitonin 0.10 Pleural Color Pleural Appearance Pleural WBC Pleural RBC Pleural Polynuclear WBC Pleural Mononuclear WBC Pleural Total Protein Pleural LDH Pleural Glucose Pleural Amylase 11/07/24 11/07/24 00:11 04:56 WBC 10.4 RBC 4.95 Hgb 14.5 Hct 45.0 MCV 91 MCH 29.3 MCHC 32.2 RDW Std Deviation 45.1 Plt Count 331 D Neut % (Auto) 72 Lymph % (Auto) 14 [place] % (Auto) 8 Eos % (Auto) 5 Baso % (Auto) 1 Neut # (Auto) 7.5 Lymph # (Auto) 1.5 [place] # (Auto) 0.9 H Eos # (Auto) 0.5 Baso # (Auto) 0.1 Immature Gran # (Auto) 0.03 H Absolute Nucleated RBC 0.00 Immature Gran % 0 Nucleated RBC % 0 PT INR APTT Sodium 140 Potassium 3.8 Chloride 104 Carbon Dioxide 23.9 Anion Gap 12 BUN 14 Creatinine 0.7 Estim Creat Clear Calc 76.5 eGFR > 60 BUN/Creatinine Ratio 20 Glucose 158 H D Calculated Osmolality 282 Lactic Acid Calcium 8.8 Corrected Calcium 9.1 Phosphorus 2.8 Magnesium 1.7 Total Bilirubin 0.4 AST 10 ALT < 7 L Alkaline Phosphatase 70 Lactate Dehydrogenase 127 Troponin I B-Natriuretic Peptide Total Protein 6.1 Albumin 3.6 D Globulin 2.5 Albumin/Globulin Ratio 1.4 Cholesterol Procalcitonin Pleural Color Straw Pleural Appearance Clear Pleural WBC 1713 Pleural RBC 0.003 Pleural Polynuclear WBC 24.8 Pleural Mononuclear WBC 75.2 Pleural Total Protein 4.5 Pleural LDH 194 Pleural Glucose 54 Pleural Amylase < 20 Quality Measures Quality Measures VTE prophylaxis Advance care planning discussed with:: patient and spouse Assessment & Plan Assessment Current Active Medications: Generic Name Dose Route Start Last Admin Trade Name Freq PRN Reason Stop Dose Admin Acetaminophen 650 mg 11/07/24 08:37 11/07/24 08:42 Acetaminophen 325 Mg Tablet PO 12/06/24 22:15 650 mg Q6H PRN Administration Fever >101.5 AND PAIN Albuterol/Ipratropium 3 ml 11/07/24 02:51 Albuterol/Ipratropium (Duoneb) Rt Zo 3 Ml Nebu INH 12/07/24 02:50 Q2HR PRN SHORTNESS OF BREATH OR WHEEZE Heparin Sodium (Porcine) 5,000 unit 11/07/24 09:00 11/07/24 08:30 Heparin Sod Inj 5000 Unit/Ml Vial SC 11/21/24 08:59 5,000 unit BID CHAPARRO Administration Ceftriaxone Sodium/Dextrose 1 gm in 50 mls @ 100 mls/hr 11/07/24 09:00 11/07/24 08:39 Rocephin/D5w 1gm Iv Premix IV 11/10/24 09:29 100 mls/hr QDAY CHAPARRO Administration Magnesium Sulfate 4 gm in 50 mls @ 12.5 mls/hr 11/07/24 08:06 11/07/24 08:39 Magnesium Sulfate Ivpb IV 11/07/24 12:05 12.5 mls/hr X1 ONE Administration Levothyroxine Sodium 75 mcg 11/07/24 06:00 11/07/24 05:06 Levothyroxine Sodium 25 Mcg Tablet PO 12/07/24 05:59 75 mcg ACBR CHAPARRO Administration Non-Formulary Medication 2.5 mg 11/07/24 09:30 Letrozole [Femara] PO 12/07/24 09:29 Q24H CHAPARRO Sertraline HCl 50 mg 11/07/24 21:00 Sertraline Hcl 25 Mg Tablet PO 12/07/24 20:59 HS CHAPARRO Plan Mrs. Andrew is a 64-year-old female past medical significant of asthma, breast cancer s/p mastectomy 2017, thyroid cancer s/p thyroidectomy 2021 and radiation therapy, who presented to the ED on 11/06/2024 with chief complaint of shortness of breath, generalized weakness and chills for the past two weeks. Patient was admitted for acute hypoxic respiratory failure secondary to right large pleural effusion. #Acute hypoxic respiratory failure secondary to #Massive right-sided pleural effusion with total atelectasis right lung #Status post thoracentesis 11/07/24 #Enlarging pulmonary nodules #HX ashtma Requiring 4L supplemental oxygen to maintain SpO2 >93 on admission and does not use home oxygen. Endorses cough, dyspnea and denies pleuritic chest pain. Has a history of asthma usually well-controlled at home with inhalers and Ellipta, however symptomatic dyspnea for the last few days. Worsening shortness of breath is likely due to the massive pleural effusion in the R lung. Patient is aware of pulmonary nodules, had rescheduled outpatient lung biopsy for 11/21/2024. COVID, flu negative. Previous history of [place] fever in [address] Chest CT massive right pleural effusion with total atelectasis right lung, enlarging pulmonary nodules left lung consistent with progression of metastatic disease compared with July 10, 2024 imaging. CXR showed total opacification right hemithorax. Chest CTA negative for pulmonary artery emboli, massive right pleural effusion with total collapse of the right lung Thoracentesis drain 2 L nonbloody, cloudy yellow pleural fluid. Right pleural effusion likely secondary to mets to lungs. - Ceftriaxone 1g mg IV qday - DuoNebs q6h - Supplemental O2, titrate as tolerated to maintain SpO2 >93% - Cocci serology - Blood cultures, pending - Pleural fluids analysis, collected, supports exudative effusion given positive for one of Light's criteria - Pain control - Pleural fluid cytology ordered, pending. - Discussed case with interventional radiology, who recommends outpatient biopsy of lung nodules - Carcinoembryonic antigen ordered, resulted as 1.5 - CA 15?13 antigen ordered, resulted as 2.3 - CA 125 antigen ordered, resulted as 140 - CA 19?19 antigen ordered, pending - Thyroglobulin ordered, pending - Oncology consulted, appreciate recommendations #Hx Breast cancer s/p mastectomy 2017 - Follows oncology outpatient - hormone therapy letrozole 2.5mg #Hx thyroid cancer s/p thyroidectomy 2021 - Follows with oncology Dr. Flowers, who has been consulted - resume Home levothyroxine 75mg ACBR #Depression Patient diagnosed s/p breast cancer. - Resume home sertraline 50 mg DVT Prophylaxis: Heparin GI Prophylaxis: N/A Bowel: N/A Diet: Regular Mccallum: N/A Lines: Peripheral IV Antibiotics: Ceftriaxone (11/06--) Code Status: FULL Reason for Hospitalization: AHRF & R pleural effusion Other Barriers to Discharge: Pleural fluid cytology Patient plan of care was discussed with the senior resident Dr. Wang (PGY-2) and attending physician Dr. Chan. Aftab Forman, PGY1 Attending Provider Attestation/Addendum I have examined the patient, reviewed labs and imaging findings, discussed the case with the resident(s), and reviewed entered orders. I agree with the plan of care as outlined in this note, with these additional summaries/recommendations: Patient seen at bedside. No acute overnight events. Patient is status post thoracentesis with apparently over 2 L fluid removed. Lites criteria reviewed and patient meets criteria for exudative effusion which is unfortunately most likely secondary to malignancy versus less likely infection. Continue supplemental oxygen. Continue IV antibiotic for probable superimposed bacterial pneumonia. Patient also found to have enlarging pulmonary nodules and we will discuss biopsy with in-house radiology. She has a history of breast cancer status post bilateral mastectomy in 2017 currently on hormonal therapy and following up at oncology center. Patient also has a history of thyroid cancer status post thyroidectomy in 2021. Continue breathing treatments as needed. Continue home levothyroxine. Continue supplemental oxygen and wean as tolerated. Cocci pending. Patient updated on the plan and in agreement. All questions answered to satisfaction. Please see residents note for additional details and management. Dr. Dustin MD
[2024-11-07 10:46] LABS: CA 125 140.0 U/mL (<30.2); CA 15-3 2.3 U/mL (<32.4); Carcinoembryonic Antigen 1.5 ng/mL (0.0-5.0)
--- NOTE | 2024-11-07 11:40 | PC.SS ---
SS met with patient regarding her d/c plan. Pt is alert/oriented. Pt was admitted for Dyspnea/SOB. Pt confirmed demographic and contact information is correct on facesheet. Pt resides with . Pt ambulates independently without assistance or DME. Pt is ok with all ADLs. Patient?s pharmacy of choice is [facility] on [address] Pt named her , Matthias Yu medical decision maker if she is unable. Patient?s choice is to return home upon d/c. Pt does not have an advance directive, SS offered, and pt was receptive. Pt states she is not diabetic and is not on dialysis. Pt followed up with PCP yesterday. will provide transportation home upon dc. SS has called Jeimy from pt registration to update patient's facesheet and add her , Matthias's demographic and contact information. Ashly Myers, mother was removed from patient's facesheet per patient's request. D/C plan: Return home Next of Kin: Matthias Andrew, , phone# [phone] PCP: Dr. Trevor Suggs Address: Correct on facesheet
--- NOTE | 2024-11-07 11:44 | PC.NURSE ---
PATIENT'S FORGOT CANCER MEDICATION AT HOME WILL BRING LATER TODAY.
--- NOTE | 2024-11-07 13:20 | PC.NURSE ---
GRAEME FROM IT APPLICATION SUPPORT ANALYST CALLED AND REPORTS DR. ZAMAN WILL NOT PERFORM LUNG BIOPSY TODAY OR TOMORROW BECAUSE PT RECEIVED HEPARIN INJECTION THIS MORNING. PLAN FOR LUNG BIOPSY ON TUESDAY. CALLED MEDICAL TEAM NO ANSWER WILL TRY LATER.
[2024-11-07 13:39] LABS: Collection Type, Urine Clean Catch
[2024-11-07 13:50] LABS: Bilirubin,Urine Negative (Negative); Blood,Urine Negative (Negative); Clarity,Urine Clear (Clear/Hazy); Color,Urine Yellow (Lt Yel-Yel); Culture Indicated,Urine Not Indicated; Glucose, Urine Negative (Negative); Ketones,Urine 2+ (Negative); Leukocyte Esterase,Urine Negative (Negative); Nitrite,Urine Negative (Negative); PH,Urine 6.0 (5.0-7.0); Protein,Urine Trace (Neg - Trace); RBC,Urine 3 /hpf (0-3); Squamous Epithelial Cell,Urine 1 /hpf (0-5); Urobilinogen,Urine 2.0 mg/dL (0.0-1.0); WBC,Urine 4 /hpf (0-5)
[2024-11-07 13:53] LABS: Specific Gravity,Urine 1.015 (1.001-1.035)
--- NOTE | 2024-11-07 16:24 | PC.SS ---
Follow up note: Biospy needed. Pt will return home upon dc.
[2024-11-08] VITALS (12 sets, daily range): BP systolic 107–139; BP diastolic 60–87; PULSE 61–92; RESP 14–22; TEMP 36.1–36.6; O2SAT 93–99
--- NOTE | 2024-11-08 | XR_ITS ---
Examination: Fluoroscopically guided placement right chest tube Fluoroscopy AP chest single view Date and time: November 08, 2024 1408 hours INDICATIONS: Pneumothorax post thoracentesis today requiring chest tube TECHNIQUE AND FINDINGS: Informed consent provided. Timeout performed. Skin prepped over the right chest and sterile drape applied, hand hygiene maximum sterile barrier technique 1% lidocaine administered for local anesthesia Utilizing fluoroscopic guidance 9 Icelandic Heimlich chest tube placed in the right hemithorax in satisfactory position and sutured to the chest wall Fluoroscopy 0.3 minute radiation dose 1.96 milligray Estimated blood loss 1 cc IMPRESSION: Successful fluoroscopically guided placement right chest tube
--- NOTE | 2024-11-08 | XR_ITS ---
Examination: PA chest single view TECHNIQUE: Upright PA chest single view November 08, 2024 1410 hours, comparison November 08, 2024 1036 hours INDICATIONS: Postthoracentesis. FINDINGS: Decrease in right pleural fluid. Right apical lateral inferior hydropneumothorax, pneumothorax portion estimated at 40% No shift of the trachea and mediastinum to the left IMPRESSION: 40% right pneumothorax
[2024-11-08 06:03] LABS: Basophils # (Auto) 0.0 Thou/mm3 (0.0-0.2); Basophils % (Auto) 1 % (0-2.5); Eosinophils # (Auto) 0.7 Thou/mm3 (0.0-0.5); Eosinophils % (Auto) 11 % (0-10); Hematocrit 45.4 % (36.0-46.0); Hemoglobin 15.0 g/dL (12.0-16.0); Immature Granulocytes Auto 0.02 Thou/mm3 (0.00-0.00); Lymphocytes # (Auto) 0.8 Thou/mm3 (1.0-4.8); Lymphocytes % (Auto) 11 % (10-50); Mean Corpuscular HGB Conc 33.0 g/dl (31.0-37.0); Mean Corpuscular Hemoglobin 29.4 pg (25.0-35.0); Mean Corpuscular Volume 89 fL (80-100); Monocytes # (Auto) 0.7 Thou/mm3 (0.0-0.8); Monocytes % (Auto) 10 % (0-12); Neutrophils # (Auto) 4.7 Thou/mm3 (1.8-7.7); Neutrophils % (Auto) 68 % (37-80); Nucleated Red Blood Cell # 0.00 Thou/mm3 (0.00-0.00); Nucleated Red Blood Cell % 0 /100 WBC (0); Platelet Count 317 Thou/mm3 (140-440); RDW Standard Deviation 43.2 fL (36.4-46.3); Red Blood Count 5.10 Miln/mm3 (4.00-5.20); White Blood Count 6.9 Thou/mm3 (3.6-11.0)
[2024-11-08] MEDS: LEVOTHYROXINE SODIUM 25 MCG TABLET 75 MCG PO (06:21)
[2024-11-08] MEDS: ACETAMINOPHEN 325 MG TABLET 650 MG PO (06:21)
[2024-11-08 06:37] LABS: Alanine Aminotransferase < 7 U/L (10-49); Albumin, Serum 3.6 gm/dL (3.4-4.8); Albumin/Globulin Ratio 1.5 (1.2-2.2); Alkaline Phosphatase 71 U/L (46-116); Anion Gap 10 (7-16); Aspartate Amino Transferase < 10 U/L (0-34); BUN/Creatinine Ratio 16 Ratio (12-20); Bilirubin,Total 0.2 mg/dL (0.3-1.2); Blood Urea Nitrogen 11 mg/dL (9-23); Calcium 8.6 mg/dL (8.3-10.6); Calcium (Corrected) 8.9 mg/dL (8.5-10.1); Carbon Dioxide 24.9 mMol/L (20.0-31.0); Chloride 107 mMol/L (98-107); Creatinine (Component) 0.7 mg/dL (0.6-1.3); Estimated Creatinine Clearance 76.5 mL/min (>60); Globulin 2.4 gm/dL (2.3-3.5); Glucose 92 mg/dL (74-106); Magnesium 1.8 mg/dL (1.6-2.6); Osmolality,Calculated 282 (275-295); Phosphorous 3.3 mg/dL (2.4-5.1); Potassium 3.6 mMol/L (3.4-5.1); Sodium 142 mMol/L (136-145); Total Protein 6.0 gm/dL (5.7-8.2); eGFR > 60 See Note
--- NOTE | 2024-11-08 09:52 | ESPR_ITS ---
<Statement entered by Dmitry Wang MD - 11/08/24 18:34> No acute overnight events. Patient is feeling well and denies any other complaints. Vital signs stable., Noted to have a decreased breath sounds in right basilar area. Still saturating well on 2 to 3 L of oxygen. Repeat chest x-ray done today showed moderate to large right pleural effusion for which director customer, Dr. Chatman and he recommended repeat thoracentesis. Ultrasound- guided right thoracentesis ordered but later ICD tube is inserted by the radiologist, Dr. Yoon in view of thinks suspected pulmonary trauma. Currently patient is complaining of mild pain at that site. I have personally seen and examined the patient, agree with residents assessment and plan Patient plan of care was discussed with the attending physician, Dr. Dustin Wang, PGY2 Documentation for date of: 11/08/24 Subjective Subjective Interval history: Overnight events: No acute events overnight. Patient was seen and examined at bedside. AM vitals and labs reviewed. Patient does not appear to be in any acute distress at this time. No acute concerns. Saturating 94% on 2 L O2 nasal cannula. Continues to have pain with deep breathing. Continues to have coughing, but does note that guaifenesin helped very briefly. Discussed case with pulmonology, appreciate recommendations. Discussed case with radiology, who would like the patient to be 1 week off heparin before doing the biopsy outpatient. Last heparin dose 11/07 08:30. Discussed possibility of chest tube placement, but patient notes that she would prefer against placement. Repeat chest x-ray ordered. Right pleural effusion still present. Will plan for repeat thoracentesis. Added guaifenesin 600 mg twice daily for cough. Review of systems otherwise negative except for what is mentioned above. Exam Vital Signs Temp Pulse Resp BP Pulse Ox O2 Del Method O2 Flow Rate 97.0 F 62 18 125/77 97 Nasal Cannula 2 11/08/24 08:00 11/08/24 08:00 11/08/24 08:00 11/08/24 08:00 11/08/24 08:00 11/08/24 08:00 11/08/24 08:00 Narrative Exam Physical Exam: General: Alert, no acute distress. Skin: Warm, dry, intact. Head: Normocephalic, atraumatic. Eye: Normal conjunctiva, PERRL. Cardiovascular: Regular rate and rhythm, no murmur, +S1/S2. Respiratory:Respirations unlabored, no crackles, no wheezing. No breath sounds appreciated on RLL. Gastrointestinal: Soft, nontender, non-distended. No guarding or rebound tenderness. Extremities: No edema, no cyanosis, no clubbing. Neuro: No focal deficits observed. Conversant, moving all extremities. No overt cerebellar signs/incoordination. Psychiatric: Cooperative, appropriate affect. Objective Labs 11/09/24 04:36 11/09/24 04:36 Labs: Laboratory Results - last 24 hr 11/07/24 11/07/24 11/08/24 09:47 12:30 05:26 WBC 6.9 RBC 5.10 Hgb 15.0 Hct 45.4 MCV 89 MCH 29.4 MCHC 33.0 RDW Std Deviation 43.2 Plt Count 317 Neut % (Auto) 68 Lymph % (Auto) 11 [place] % (Auto) 10 Eos % (Auto) 11 H Baso % (Auto) 1 Neut # (Auto) 4.7 Lymph # (Auto) 0.8 L [place] # (Auto) 0.7 Eos # (Auto) 0.7 H Baso # (Auto) 0.0 Immature Gran # (Auto) 0.02 H Absolute Nucleated RBC 0.00 Immature Gran % 0 Nucleated RBC % 0 Sodium 142 Potassium 3.6 Chloride 107 Carbon Dioxide 24.9 Anion Gap 10 BUN 11 Creatinine 0.7 Estim Creat Clear Calc 76.5 eGFR > 60 BUN/Creatinine Ratio 16 Glucose 92 D Calculated Osmolality 282 Calcium 8.6 Corrected Calcium 8.9 Phosphorus 3.3 Magnesium 1.8 Total Bilirubin 0.2 L AST < 10 ALT < 7 L Alkaline Phosphatase 71 Total Protein 6.0 Albumin 3.6 Globulin 2.4 Albumin/Globulin Ratio 1.5 Carcinoembryonic Ag 1.5 CA 15-3 Antigen 2.3 CA 125 Antigen 140.0 H Ur Collection Type Clean Catch Urine Color Yellow Urine Clarity Clear Urine pH 6.0 Ur Specific [place] 1.015 Urine Protein Trace Urine Glucose (UA) Negative Urine Ketones 2+ A Urine Blood Negative Urine Nitrite Negative Urine Bilirubin Negative Urine Urobilinogen (Auto) 2.0 Ur Leukocyte Esterase Negative Urine RBC 3 Urine WBC 4 Ur Squamous Epith Cells 1 Urine Bacteria None Ur Culture Indicated? Not Indicated Quality Measures Quality Measures VTE prophylaxis Advance care planning discussed with:: patient Assessment & Plan Assessment Current Active Medications: Generic Name Dose Route Start Last Admin Trade Name Freq PRN Reason Stop Dose Admin Acetaminophen 650 mg 11/07/24 08:37 11/08/24 06:21 Acetaminophen 325 Mg Tablet PO 12/06/24 22:15 650 mg Q6H PRN Administration Fever >101.5 AND PAIN Albuterol/Ipratropium 3 ml 11/07/24 02:51 Albuterol/Ipratropium (Duoneb) Rt Zo 3 Ml Nebu INH 12/07/24 02:50 Q2HR PRN SHORTNESS OF BREATH OR WHEEZE Heparin Sodium (Porcine) 5,000 unit 11/07/24 09:00 11/07/24 20:00 Heparin Sod Inj 5000 Unit/Ml Vial SC 11/21/24 08:59 Not Given On Hold: 11/08/24 00:00 BID CHAPARRO Ceftriaxone Sodium/Dextrose 1 gm in 50 mls @ 100 mls/hr 11/07/24 09:00 11/07/24 08:39 Rocephin/D5w 1gm Iv Premix IV 11/10/24 09:29 100 mls/hr QDAY CHAPARRO Administration Levothyroxine Sodium 75 mcg 11/07/24 06:00 11/08/24 06:21 Levothyroxine Sodium 25 Mcg Tablet PO 12/07/24 05:59 75 mcg ACBR CHAPARRO Administration Non-Formulary Medication 2.5 mg 11/07/24 09:30 Letrozole [Femara] PO 12/07/24 09:29 Q24H CHAPARRO Sertraline HCl 50 mg 11/08/24 09:00 Sertraline Hcl 25 Mg Tablet PO 12/08/24 08:59 QDAY CHAPARRO Plan Mrs. Andrew is a 64-year-old female past medical significant of asthma, breast cancer s/p mastectomy 2017, thyroid cancer s/p thyroidectomy 2021 and radiation therapy, who presented to the ED on 11/06/2024 with chief complaint of shortness of breath, generalized weakness and chills for the past two weeks. Patient was admitted for acute hypoxic respiratory failure secondary to right large pleural effusion. #Acute hypoxic respiratory failure secondary to #Massive right-sided pleural effusion with total atelectasis right lung #Status post thoracentesis 11/07/24 #Enlarging pulmonary nodules #HX ashtma Requiring 4L supplemental oxygen to maintain SpO2 >93 on admission and does not use home oxygen. Endorses cough, dyspnea and denies pleuritic chest pain. Has a history of asthma usually well-controlled at home with inhalers and Ellipta, however symptomatic dyspnea for the last few days. Worsening shortness of breath is likely due to the massive pleural effusion in the R lung. Patient is aware of pulmonary nodules, had rescheduled outpatient lung biopsy for 11/21/2024. COVID, flu negative. Previous history of [place] fever in [address] Chest CT massive right pleural effusion with total atelectasis right lung, enlarging pulmonary nodules left lung consistent with progression of metastatic disease compared with July 10, 2024 imaging. CXR showed total opacification right hemithorax. Chest CTA negative for pulmonary artery emboli, massive right pleural effusion with total collapse of the right lung Thoracentesis 11/06 drained 2 L nonbloody, cloudy yellow pleural fluid. Right pleural effusion likely secondary to mets to lungs. Repeat CXR 11/08 continues to show massive right pleural effusion - Ceftriaxone 1g mg IV qday - DuoNebs q6h - Supplemental O2, titrate as tolerated to maintain SpO2 >93% - Cocci serology - Blood cultures, pending - Pleural fluids analysis, collected, supports exudative effusion given positive for one of Light's criteria - Pain control - Pleural fluid cytology ordered, pending - Discussed case with interventional radiology, who recommends outpatient biopsy of lung nodules after 1 week off heparin (last heparin dose 11/07 08:30, earliest possible biopsy 11/14) - Carcinoembryonic antigen ordered, resulted as 1.5 - CA 15?13 antigen ordered, resulted as 2.3 - CA 125 antigen ordered, resulted as 140 - CA 19?19 antigen ordered, pending - Thyroglobulin ordered, pending - Oncology consulted, appreciate recommendations - Pulmonology consulted, appreciate recommendations - Repeat thoracentesis planned for 11/08 - Upon discharge, recommend patient have close follow up with at least monthly CXRs and patient to seek care in ED for emergent thoracentesis if pleural effusion enlargens per pulmonology #Hx Breast cancer s/p mastectomy 2017 - Follows oncology outpatient - hormone therapy letrozole 2.5mg #Hx thyroid cancer s/p thyroidectomy 2021 - Follows with oncology Dr. Flowers, who has been consulted - resume Home levothyroxine 75mg ACBR #Depression Patient diagnosed s/p breast cancer. - Resume home sertraline 50 mg DVT Prophylaxis: Heparin GI Prophylaxis: N/A Bowel: N/A Diet: Regular M[place]um: N/A Lines: Peripheral IV Antibiotics: Ceftriaxone (11/06--) Code Status: FULL Reason for Hospitalization: AHRF & R pleural effusion Other Barriers to Discharge: Pleural fluid cytology Patient plan of care was discussed with the senior resident Dr. Wang (PGY-2) and attending physician Dr. Chan. Aftab Forman, PGY1 Attending Provider Attestation/Addendum I have examined the patient, reviewed labs and imaging findings, discussed the case with the resident(s), and reviewed entered orders. I agree with the plan of care as outlined in this note, with these additional summaries/recommendations: Patient seen at bedside. No acute overnight events. Patient is status post thoracentesis. Lites criteria reviewed and patient meets criteria for exudative effusion which is unfortunately most likely secondary to malignancy versus less likely infection. Continue supplemental oxygen. Continue IV antibiotic while awaiting Gram stain and culture results. If no growth we will discontinue antibiotics as lower suspicion for infectious etiology. Repeat chest x-ray today still shows significant pleural effusion although patient is requiring minimal supplemental oxygen and denies shortness of breath. We will discuss findings with in-house pulmonology in regards to repeat thoracentesis versus continued monitoring versus PleurX versus pleurodesis. Patient also found to have enlarging pulmonary nodules and case discussed with interventional radiology who is in agreement to proceed with biopsy on Tuesday. Hold all chemical anticoagulation. She has a history of breast cancer status post bilateral mastectomy in 2017 currently on hormonal therapy and following up at oncology center. Patient also has a history of thyroid cancer status post thyroidectomy in 2021. CA125 significantly elevated. Continue breathing treatments as needed. Continue home levothyroxine. Continue supplemental oxygen and wean as tolerated. Cocci pending. Patient updated on the plan and in agreement. All questions answered to satisfaction. Please see residents note for additional details and management. Dr. Dustin MD
[2024-11-08] MEDS: cefTRIAXone/D5w 1gm IV premix 1 GM/50 ML BAG IV (10:04)
[2024-11-08] MEDS: SERTRALINE HCL 25 MG TABLET 50 MG PO (10:05)
--- NOTE | 2024-11-08 10:28 | XR_ITS ---
Examination: AP chest single view TECHNIQUE: AP portable upright chest single view Date and time: November 08, 2024 10:36 AM, comparison November 07, 2024 INDICATIONS: Coughing shortness of breath today FINDINGS: Persistent large right pleural effusion No significant cardiac enlargement Retrocardiac gastric hernia IMPRESSION: Large right pleural effusion
--- NOTE | 2024-11-08 12:21 | PD.PUCONS ---
[facility] Pulmonology Consult Data of Consult Requesting Physician: Tricia Suggs MD Primary Care Provider: Trevor Suggs MD Consult Narrative History of present illness: Mrs. Andrew is a 64-year-old female admitted for SOB in the setting of a massive right sided pleural effusion. Pulmonary consultation was requested Past medical history significant for right breast CA early-stage who underwent bilateral mastectomy 2017 and has been on estrogen modulators 5 years; stage II thyroid carcinoma underwent resection radioiodine and eventual external beam radiation. She reports being chronically short of breath since her thyroidectomy but she does endorse progressive dyspnea on orthopnea. She denies infectious constitutional symptoms She underwent a thoracentesis 2 days ago. She denies unintentional weight loss, chest pain, history of prior pleural effusion. CT scan of the chest from July 10 identifies multiple right-sided pulmonary nodules -she reportedly underwent a PET CT scan in May 2024 identifying hypermetabolic lesions correlating to the pulmonary nodules. cc:: cc: Tricia Suggs MD Review of Systems Review of Systems Narrative Review of Systems: Denies fevers, chills, chest pain. No acute change in sensation, cognition. Denies any recent bleeding. Denies any skin changes. 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 Stage II thyroid cancer thyroidectomy radioactive iodine external beam asthma Meds Home Medications and Allergies Home Medications ?Medication ?Instructions ?Recorded ?Confirmed ?Type Fluticasone/Vilanterol (Breo 1 ea IH QDAY Asthma #0 ea 02/02/17 11/07/24 History Ellipta 100-25 Mcg INH) letrozole 2.5 mg tablet 2.5 mg PO .am 01/21/21 11/07/24 History sertraline 50 mg tablet 50 mg PO HS 01/21/21 11/07/24 History albuterol sulfate 90 mcg/actuation 1 puff inhalation PRN PRN 11/07/24 11/07/24 History aerosol inhaler shortness of breath or wheezing celecoxib 200 mg capsule 200 mg PO Q24H 11/07/24 11/07/24 History letrozole 2.5 mg tablet (Femara) 2.5 mg PO Q24H 11/07/24 11/07/24 History levothyroxine 75 mcg tablet 75 mcg PO .morning 11/07/24 11/07/24 History Allergies Allergy/AdvReac Type Severity Reaction Status Date / Time tramadol Allergy Severe RASH, SOB Verified 11/06/24 16:14 SULFA Allergy Severe RASH, SOB Uncoded 11/06/24 16:14 PAPER TAPE Allergy Mild ICHY, Uncoded 11/06/24 16:14 LOCALIZED RASH Exam Vital Signs Temp Pulse Resp BP Pulse Ox O2 Del Method O2 Flow Rate 97.0 F 62 18 125/77 97 Nasal Cannula 2 11/08/24 08:00 11/08/24 08:00 11/08/24 08:00 11/08/24 08:00 11/08/24 08:00 11/08/24 08:00 11/08/24 08:00 Narrative Exam GENERAL: Patient appears to be comfortable sitting upright no acute distress HEENT: No facial asymmetry, EOM normal, no epistaxis, neck supple, PULMONARY: Nonlabored symmetric excursions CARDIAC: Regular rate and rhythm GASTROINTESTINAL: Abdomen is soft and nontender EXTREMITIES: 1+ peripheral pulses are palpable. There is no leg edema and no sign of phlebitis feet are cool generalized edema is noted. SKIN: Warm and dry without significant rashes or discoloration. NEURO: Moves all extremities, responds to tactile stimulation, mental status is normal, symmetrical antigravity bilateral upper and lower extremity motor strength. 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 11/08/24 05:26 11/08/24 05:26 Labs: Short CBC 11/08/24 Range/Units 05:26 WBC 6.9 (3.6-11.0) Thou/mm3 Hgb 15.0 (12.0-16.0) g/dL Hct 45.4 (36.0-46.0) % Plt Count 317 (140-440) Thou/mm3 [facility] 11/08/24 05:26 Sodium 142 Potassium 3.6 Chloride 107 Carbon Dioxide 24.9 BUN 11 Creatinine 0.7 Glucose 92 D Calcium 8.6 Liver Function 11/08/24 Range/Units 05:26 Total Bilirubin 0.2 L (0.3-1.2) mg/dL AST < 10 (0-34) U/L ALT < 7 L (10-49) U/L Alkaline Phosphatase 71 (46-116) U/L Albumin 3.6 (3.4-4.8) gm/dL Urine 11/07/24 Range/Units 12:30 Urine Color Yellow (Lt Yel-Yel) Urine Clarity Clear (Clear/Hazy) Urine pH 6.0 (5.0-7.0) Ur Specific [place] 1.015 (1.001-1.035) Urine Protein Trace (Neg - Trace) Urine Glucose (UA) Negative (Negative) Assessment & Plan Additional Assessment Additional Assessment: Massive right pleural exudative effusion Multiple right sided pulmonary nodules July 10, 2024 CT chest History of breast cancer, history thyroid cancer The pleural effusion is exudative as we would expect based off imaging. Given the size of the effusion and the underlying multiple pulmonary nodules (hypermetabolic from PET CT scan May 2024 per residents) it is highly likely to be malignant Recommend waiting for pathology report of the pleural If negative percutaneous biopsy of the most amenable pulmonary nodule is reasonable unless the prior PET CT scan identified a more easily approachable biopsy site Recommend repeat thoracentesis to achieve better total drainage of the residual still large pleural effusion Follow-up closely as an outpatient with PCP and obtain at least q. monthly chest x-rays. Sent to the emergency department for thoracentesis as needed prior to the effusion becoming too large Treatment of the pleural effusion relies on treatment of the underlying identified malignancy. If the effusion reoccurs too rapidly, especially if already receiving appropriate treatment for the underlying malignancy, mechanical and chemical pleurodesis would be appropriate. Above discussed with third-year resident Additional Plan Additional Plan: Provider Notation Provider Notation: Although this document has been carefully reviewed, there may still be some phonetic and other typographical errors. These errors are purely grammatical due to imperfections in the software program and should not be construed in any way to compromise the substance of the patient's medical care during this visit. Thank you for the opportunity and privilege in assisting you with this patient's care and management.
--- NOTE | 2024-11-08 13:05 | XR_ITS ---
Examination: Ultrasound right thoracentesis Ultrasound guided left hemithoraces Date and time: November 08, 2024 1334 hours INDICATIONS: Difficulty breathing this week, large right pleural effusion postthoracentesis TECHNIQUE AND FINDINGS: Grayscale sonographic images hemithoraces demonstrates significant right pleural fluid Informed consent provided. Timeout performed. Skin prepped over the right hemithorax and sterile drape applied hand hygiene ultrasound sterile technique 1% lidocaine administered for local anesthesia Utilizing ultrasonographic guidance successful percutaneous placement 5 Irish catheter in the right pleural space 1400 cc pleural fluid removed IMPRESSION: Successful right thoracentesis, 1400 cc pleural fluid removed
[2024-11-08] MEDS: fentaNYL CIT INJ 50 mCg/ML AMP 2ML 75 MCG IVP (14:43)
[2024-11-08] MEDS: HEPARIN SOD LOCK SYR 100 UNIT/ML 500 UNIT STFIELD (14:44)
[2024-11-08] MEDS: LIDOCAINE INJ PF 1% 30 ML VIAL 25 ML INFL (14:44)
--- NOTE | 2024-11-08 14:54 | PC.NURSE ---
1453 patient is awake, alert, breathing unlabored, s/p right chest tube insertion in IR. Report given to Micaela RN, patient transferred back to room 363. Chest tube to be connected to low to medium continuous suction and chest xray ordered for [address] Castellon.
--- NOTE | 2024-11-08 16:20 | XR_ITS ---
Examination: AP chest single view Technique one AP portable semiupright chest single view Date and time: November 08, 2024 1702 hrs., Comparison 11/08/2024 Indications: Pneumothorax postthoracentesis today, post chest tube placement Date and time: November 08, 2024 1702 hrs., Comparison November 08, 2024 Findings: Interval insertion right chest tube with full expansion right lung Atelectasis, minor at the right base Mild prominence left ventricle Impression: Satisfactory reexpansion right lung post chest tube insertion
[2024-11-08] MEDS: MORPHINE SULF INJ 4 MG/ML VIAL 1 MG IVP ×2 (16:45→21:30)
[2024-11-09] VITALS (8 sets, daily range): BP systolic 98–149; BP diastolic 52–94; PULSE 67–90; RESP 16–26; TEMP 36.1–36.9; O2SAT 98–99; BMI 31.7
[2024-11-09] MEDS: MORPHINE SULF INJ 4 MG/ML VIAL 1 MG IVP (04:05)
--- NOTE | 2024-11-09 04:15 | PC.NURSE ---
called Dr. Swain regarding patient c/o pain around where chest tube e is inserted, stating she feels more pain after the insertion of chest tube, patient stays laying on side left side. Patient has PRN morphine 1mg which patient states helps a little she was able to sleep and if she doesn't move it does not hurt as much. Per patient she takes hydrocodone sometimes at home when in pain. Patient also has not voided since around 1800, patient states does not feel the urge to void per patient may be due to the pain. PRN morphine given an will attempt to get patient up to commode to void. Will update Dr. Swain. No new orders received. Per Dr. Swain will let day team know if they want to add more pain regimen.
[2024-11-09 06:07] LABS: Basophils # (Auto) 0.0 Thou/mm3 (0.0-0.2); Basophils % (Auto) 0 % (0-2.5); Eosinophils # (Auto) 0.2 Thou/mm3 (0.0-0.5); Eosinophils % (Auto) 3 % (0-10); Hematocrit 47.6 % (36.0-46.0); Hemoglobin 15.8 g/dL (12.0-16.0); Immature Granulocytes Auto 0.03 Thou/mm3 (0.00-0.00); Lymphocytes # (Auto) 0.8 Thou/mm3 (1.0-4.8); Lymphocytes % (Auto) 9 % (10-50); Mean Corpuscular HGB Conc 33.2 g/dl (31.0-37.0); Mean Corpuscular Hemoglobin 29.6 pg (25.0-35.0); Mean Corpuscular Volume 89 fL (80-100); Monocytes # (Auto) 0.7 Thou/mm3 (0.0-0.8); Monocytes % (Auto) 7 % (0-12); Neutrophils # (Auto) 7.2 Thou/mm3 (1.8-7.7); Neutrophils % (Auto) 80 % (37-80); Nucleated Red Blood Cell # 0.00 Thou/mm3 (0.00-0.00); Nucleated Red Blood Cell % 0 /100 WBC (0); Platelet Count 353 Thou/mm3 (140-440); RDW Standard Deviation 43.9 fL (36.4-46.3); Red Blood Count 5.34 Miln/mm3 (4.00-5.20); White Blood Count 9.0 Thou/mm3 (3.6-11.0)
[2024-11-09] MEDS: LEVOTHYROXINE SODIUM 25 MCG TABLET 75 MCG PO (06:13)
[2024-11-09 06:35] LABS: Alanine Aminotransferase < 7 U/L (10-49); Albumin, Serum 3.9 gm/dL (3.4-4.8); Albumin/Globulin Ratio 1.6 (1.2-2.2); Alkaline Phosphatase 77 U/L (46-116); Anion Gap 11 (7-16); Aspartate Amino Transferase 10 U/L (0-34); BUN/Creatinine Ratio 18 Ratio (12-20); Bilirubin,Total 0.3 mg/dL (0.3-1.2); Blood Urea Nitrogen 11 mg/dL (9-23); Calcium 9.0 mg/dL (8.3-10.6); Calcium (Corrected) 9.1 mg/dL (8.5-10.1); Carbon Dioxide 23.7 mMol/L (20.0-31.0); Chloride 104 mMol/L (98-107); Creatinine (Component) 0.6 mg/dL (0.6-1.3); Estimated Creatinine Clearance 89.3 mL/min (>60); Globulin 2.4 gm/dL (2.3-3.5); Glucose 109 mg/dL (74-106); Magnesium 1.9 mg/dL (1.6-2.6); Osmolality,Calculated 277 (275-295); Phosphorous 3.9 mg/dL (2.4-5.1); Potassium 3.9 mMol/L (3.4-5.1); Sodium 139 mMol/L (136-145); Total Protein 6.3 gm/dL (5.7-8.2); eGFR > 60 See Note
[2024-11-09] MEDS: SERTRALINE HCL 25 MG TABLET 50 MG PO (08:33)
[2024-11-09] MEDS: cefTRIAXone/D5w 1gm IV premix 1 GM/50 ML BAG IV (08:34)
--- NOTE | 2024-11-09 08:40 | XR_ITS ---
Examination: AP chest single view Technique one AP portable semiupright chest single view Date and time: November 09, 2024 0854 hours, comparison 11/08/2024 INDICATIONS: History pneumothorax post thoracentesis FINDINGS: Chest tube satisfactory position with mild pneumothorax inferior to the right lung Atelectasis right lower lobe IMPRESSION: Pneumothorax inferior to the right lung, estimated 20%
--- NOTE | 2024-11-09 09:37 | PC.SS ---
Follow up note: Chest tube needs to be removed. Pt will return home upon dc. No Biopsy.
--- NOTE | 2024-11-09 10:23 | PC.NURSE ---
at 936 veterinary laboratory technician called for not p waves with pvc.
--- NOTE | 2024-11-09 10:24 | PC.NURSE ---
at 936 surveillance monitor that pt has no p waves and run of pvc. called dr mary and she will order ekg. pt is not complaining of chest pain/discomfort. pt talking to family at bedside
--- NOTE | 2024-11-09 10:50 | XR_ITS ---
Examination: CT abdomen with intravenous contrast CT pelvis with intravenous contrast 2-D coronal reconstructions 2-D sagittal reconstructions Date and time of exam:November 09, 2024 11:13 AM INDICATIONS: Elevated CA 125, CT chest 11/06/2024 massive right pleural effusion, pulmonary nodular metastatic disease left lung. CTDI: vol (mGy) 10.8 DLP: (mGycm) 625 Technique: Multiple axial sections of the abdomen and pelvis have been obtained. 64 slice high-resolution scanner used. 3 mm axial sections have been obtained, post intravenous injection 60 cc [id number] 2-D sagittal, coronal reconstructions obtained. Low dose protocols were performed. One or more of the following dose reduction techniques were used; automated exposure control, adjustment of the mA and/or KV according to patient size, use of iterative reconstruction technique. Findings: Partial visualization right chest tube with hydropneumothorax on the right, please see the chest x-ray report No visualized liver or splenic lesion Distended gallbladder No pancreatic or adrenal mass Aorta in the abdomen normal size No abdominal or pelvic lymphadenopathy No renal or ureteral calculi, no hydronephrosis No bowel obstruction Normal appendix No diverticulitis Atrophic partially retroverted uterus Urinary bladder intact Grade 1 anterolisthesis L4 on L5 Moderate osteopenia Hips bones of the pelvis and lumbar vertebral bodies intact IMPRESSION: Distended gallbladder, recommend hepatobiliary sonography follow-up No liver or splenic lesions No pancreatic mass Negative for extra hepatic biliary tract dilatation No renal or ureteral calculi, no hydronephrosis Normal appendix No bowel obstruction diverticulitis or free air
--- NOTE | 2024-11-09 10:53 | PD.RESPRO ---
Documentation for date of: 11/09/24 Subjective Subjective Interval history: Patient seen and assessed in hospital bed reporting pain at chest tube insertion site; otherwise denies any concerning symptoms and vitals are stable. Chest tube was inserted as patient's second thoracentesis failed to allow lung reexpansion. Improvement Specialist on the case following and based on CT Abd/P results (originally ordered to assess for ovarian mass vs. cyst) which showed hydropneumothorax, recommendation is to transfer the patient to tertiary center for decortication and biopsy. Exam Vital Signs Temp Pulse Resp BP Pulse Ox O2 Del Method O2 Flow Rate 98.4 F 77 26 H 145/93 H 98 Room Air 2 11/09/24 08:00 11/09/24 08:00 11/09/24 08:00 11/09/24 08:00 11/09/24 08:00 11/09/24 08:00 11/08/24 21:35 Narrative Exam Physical Exam: General: Alert, no acute distress. Skin: Warm, dry, intact. Head: Normocephalic, atraumatic. Eye: Normal conjunctiva, PERRL. Cardiovascular: Regular rate and rhythm, no murmur, +S1/S2. Respiratory: Chest tube in place. Respirations unlabored, no crackles, no wheezing. Minimal breath sounds appreciated on RLL. Gastrointestinal: Soft, nontender, non-distended. No guarding or rebound tenderness. Extremities: No edema, no cyanosis, no clubbing. Neuro: No focal deficits observed. Conversant, moving all extremities. No overt cerebellar signs/incoordination. Psychiatric: Cooperative, appropriate affect. Objective Labs 11/10/24 05:32 11/10/24 05:32 Labs: Laboratory Results - last 24 hr 11/09/24 04:36 WBC 9.0 RBC 5.34 H Hgb 15.8 Hct 47.6 H MCV 89 MCH 29.6 MCHC 33.2 RDW Std Deviation 43.9 Plt Count 353 D Neut % (Auto) 80 Lymph % (Auto) 9 L [place] % (Auto) 7 Eos % (Auto) 3 Baso % (Auto) 0 Neut # (Auto) 7.2 Lymph # (Auto) 0.8 L [place] # (Auto) 0.7 Eos # (Auto) 0.2 Baso # (Auto) 0.0 Immature Gran # (Auto) 0.03 H Absolute Nucleated RBC 0.00 Immature Gran % 0 Nucleated RBC % 0 Sodium 139 Potassium 3.9 Chloride 104 Carbon Dioxide 23.7 Anion Gap 11 BUN 11 Creatinine 0.6 Estim Creat Clear Calc 89.3 eGFR > 60 BUN/Creatinine Ratio 18 Glucose 109 H Calculated Osmolality 277 Calcium 9.0 Corrected Calcium 9.1 Phosphorus 3.9 Magnesium 1.9 Total Bilirubin 0.3 AST 10 ALT < 7 L Alkaline Phosphatase 77 Total Protein 6.3 Albumin 3.9 Globulin 2.4 Albumin/Globulin Ratio 1.6 Quality Measures Quality Measures VTE prophylaxis Advance care planning discussed with:: patient Assessment & Plan Assessment Current Active Medications: Generic Name Dose Route Start Last Admin Trade Name Freq PRN Reason Stop Dose Admin Acetaminophen 650 mg 11/07/24 08:37 11/08/24 06:21 Acetaminophen 325 Mg Tablet PO 12/06/24 22:15 650 mg Q6H PRN Administration Fever >101.5 AND PAIN Protocol Albuterol/Ipratropium 3 ml 11/07/24 02:51 Albuterol/Ipratropium (Duoneb) Rt Zo 3 Ml Nebu INH 12/07/24 02:50 Q2HR PRN SHORTNESS OF BREATH OR WHEEZE Guaifenesin 600 mg 11/08/24 10:45 11/09/24 08:34 Guaifenesin Er 600 Mg Tabcr PO 12/08/24 10:44 600 mg BID CHAPARRO Administration Heparin Sodium (Porcine) 5,000 unit 11/07/24 09:00 11/07/24 20:00 Heparin Sod Inj 5000 Unit/Ml Vial SC 11/21/24 08:59 Not Given On Hold: 11/08/24 00:00 BID CHAPARRO Ceftriaxone Sodium/Dextrose 1 gm in 50 mls @ 100 mls/hr 11/07/24 09:00 11/09/24 08:34 Rocephin/D5w 1gm Iv Premix IV 11/10/24 09:29 100 mls/hr QDAY CHAPARRO Administration Levothyroxine Sodium 75 mcg 11/07/24 06:00 11/09/24 06:13 Levothyroxine Sodium 25 Mcg Tablet PO 12/07/24 05:59 75 mcg ACBR CHAPARRO Administration Non-Formulary Medication 2.5 mg 11/07/24 09:30 Letrozole [Femara] PO 12/07/24 09:29 Q24H CHAPARRO Sertraline HCl 50 mg 11/08/24 09:00 11/09/24 08:33 Sertraline Hcl 25 Mg Tablet PO 12/08/24 08:59 50 mg QDAY CHAPARRO Administration Plan Mrs. Andrew is a 64-year-old female past medical significant of asthma, breast cancer s/p mastectomy 2017, thyroid cancer s/p thyroidectomy 2021 and radiation therapy, who presented to the ED on 11/06/2024 with chief complaint of shortness of breath, generalized weakness and chills for the past two weeks. Patient was admitted for right large pleural effusion secondary to metastatic lung cancer. #Massive right-sided pleural effusion with total atelectasis right lung #Status post thoracentesis 11/07/24 and 11/08/24 #Hydropneumothorax #Enlarging pulmonary nodules #Asthma Chest CT massive right pleural effusion with total atelectasis right lung, enlarging pulmonary nodules left lung consistent with progression of metastatic disease compared with July 10, 2024 imaging. CXR showed total opacification right hemithorax. Chest CTA negative for pulmonary artery emboli, massive right pleural effusion with total collapse of the right lung Thoracentesis 11/06 drained 2 L nonbloody, cloudy yellow pleural fluid. Right pleural effusion likely secondary to mets to lungs. Repeat CXR 11/08 continues to show massive right pleural effusion; 1400cc removed at which point chest tube was placed due to pneumothorax Pleural fluids analysis, collected, supports exudative effusion given positive for one of Light's criteria CT Abd/P w/ con shows: right chest tube with hydropneumothorax on the right - Will discontinue Ceftriaxone 1g mg IV qday when pleural fluid analysis results - Blood cultures show no growth over 48 hours - DuoNebs q6h - Supplemental O2, titrate as tolerated to maintain SpO2 >93% - Cocci serology - Pain control - Pleural fluid cytology ordered, pending - Thyroglobulin ordered, pending - Carcinoembryonic antigen ordered, resulted as 1.5 - CA 15?13 antigen ordered, resulted as 2.3 - CA 125 antigen ordered, resulted as 140 - CA 19?19 antigen ordered, pending - Oncology consulted, appreciate recommendations - Pulmonology consulted, appreciate recommendations - Improvement Specialist spoke with patient who is agreeable to transfer for surgical decortication as the patient has a trapped lung. #Ovarian cyst vs. malignancy Tumor markers were ordered as per Radiology oncology recommendations CA 125 was elevated, likely secondary to patient's history of 16mm right adnexal cyst seen on CT Pelvis on 03/2023 Rad Onc is recommended repeating CT Abd/P with contrast to visualize other/primary source of malignancy #Gallbladder thickening As seen on CT Abd/P w/con Patient's LFTs are unremarkable Plan: Consider obtaining U/S of Abd Monitor LFT or clinical signs of GB disease #Hx Breast cancer s/p mastectomy 2017 - Follows oncology outpatient - hormone therapy letrozole 2.5mg #Hx thyroid cancer s/p thyroidectomy 2021 - Follows with oncology Dr. Flowers, who has been consulted - Continue Home levothyroxine 75mg ACBR #Depression Patient diagnosed s/p breast cancer. - Continue home sertraline 50 mg Health Maintenance: DVT Prophylaxis: Heparin GI Prophylaxis: N/A Bowel: N/A Diet: Regular Mccallum: N/A Lines: Peripheral IV Antibiotics: Ceftriaxone (11/06--) Code Status: FULL Patient seen and assessed with attending Dr. Dustin Silvestre, DO PGY-2 Internal Medicine Attending Provider Attestation/Addendum I have examined the patient, reviewed labs and imaging findings, discussed the case with the resident(s), and reviewed entered orders. I agree with the plan of care as outlined in this note, with these additional summaries/recommendations: Patient seen at bedside. No acute overnight events. Patient has no new symptoms to report today. Patient is status post thoracentesis X 2. Lites criteria reviewed and patient meets criteria for exudative effusion which is unfortunately most likely secondary to malignancy versus less likely infection. Continue supplemental oxygen. Continue IV antibiotic while awaiting Gram stain and culture results. If no growth we will discontinue antibiotics as lower suspicion for infectious etiology. Patient is status post repeat thoracentesis on 11/08/2024 with we will discuss findings with 1400 cc removed. She was suspected of developing pneumothorax after repeat thoracentesis and chest tube was placed. Case discussed with in-house pulmonology and likely more related to trapped lung. We have notified transfer nurse to arrange transfer for decortication at tertiary center. Patient also found to have enlarging pulmonary nodules and case discussed with interventional radiology who is in agreement to proceed with biopsy on Tuesday although if patient is transferred in the meantime then she can complete lung biopsy at [facility]. Hold all chemical anticoagulation. She has a history of breast cancer status post bilateral mastectomy in 2018 currently on hormonal therapy and following up at oncology center. Patient also has a history of thyroid cancer status post thyroidectomy in 2021. CA125 significantly elevated and we will obtain CT abdomen/pelvis.. Continue breathing treatments as needed. Continue home levothyroxine. Continue supplemental oxygen and wean as tolerated. Cocci pending. Patient updated on the plan and in agreement. All questions answered to satisfaction. Please see residents note for additional details and management. Dr. Dustin MD
[2024-11-09] MEDS: HYDROcodone/APAP 5/325 TABLET 1 TAB PO ×2 (11:09→20:03)
--- NOTE | 2024-11-09 13:14 | ESPR_ITS ---
Documentation for date of: 11/09/24 Subjective Subjective Interval history: she reports feeling about the same Critical Care Note Critical care time (min.): 0 Exam Vital Signs Temp Pulse Resp BP Pulse Ox O2 Del Method O2 Flow Rate 97.6 F 84 18 128/73 98 Room Air 2 11/09/24 12:00 11/09/24 12:00 11/09/24 12:00 11/09/24 12:00 11/09/24 12:00 11/09/24 08:00 11/08/24 21:35 Narrative Exam GENERAL: Patient appears to be comfortable sitting upright no acute distress HEENT: No facial asymmetry, EOM normal, no epistaxis, neck supple, PULMONARY: Nonlabored symmetric excursions, pigtail in place CARDIAC: Regular rate and rhythm GASTROINTESTINAL: Abdomen is soft and nontender EXTREMITIES: 1+ peripheral pulses are palpable. There is no leg edema and no sign of phlebitis feet are cool generalized edema is noted. SKIN: Warm and dry without significant rashes or discoloration. NEURO: Moves all extremities, responds to tactile stimulation, mental status is normal, symmetrical antigravity bilateral upper and lower extremity motor strength. Physical Exam Completion Physical Exam Complete?: Yes Objective - Supervisor Accounting [employer]erks Labs 11/09/24 04:36 11/09/24 04:36 Labs: Laboratory Results - last 24 hr 11/09/24 04:36 WBC 9.0 RBC 5.34 H Hgb 15.8 Hct 47.6 H MCV 89 MCH 29.6 MCHC 33.2 RDW Std Deviation 43.9 Plt Count 353 D Neut % (Auto) 80 Lymph % (Auto) 9 L [place] % (Auto) 7 Eos % (Auto) 3 Baso % (Auto) 0 Neut # (Auto) 7.2 Lymph # (Auto) 0.8 L [place] # (Auto) 0.7 Eos # (Auto) 0.2 Baso # (Auto) 0.0 Immature Gran # (Auto) 0.03 H Absolute Nucleated RBC 0.00 Immature Gran % 0 Nucleated RBC % 0 Sodium 139 Potassium 3.9 Chloride 104 Carbon Dioxide 23.7 Anion Gap 11 BUN 11 Creatinine 0.6 Estim Creat Clear Calc 89.3 eGFR > 60 BUN/Creatinine Ratio 18 Glucose 109 H Calculated Osmolality 277 Calcium 9.0 Corrected Calcium 9.1 Phosphorus 3.9 Magnesium 1.9 Total Bilirubin 0.3 AST 10 ALT < 7 L Alkaline Phosphatase 77 Total Protein 6.3 Albumin 3.9 Globulin 2.4 Albumin/Globulin Ratio 1.6 Assessment & Plan Additional Assessment Additional Assessment: Massive right pleural exudative effusion Trapped lung Multiple right sided pulmonary nodules July 10, 2024 CT chest History of breast cancer, history thyroid cancer After the 2nd thoracentesis the lung failed to re-expand. There was rapid re- accumulation of pleural fluid and ct abd/pelv identified thick pleural rind. This is consistent with trapped lung Surgical decortication will be required and she will need to be transferred to a tertiary center for that Biopsies can be submitted during the decortication The alternative is to clamp the chest tube - allow the fluid to re-accumulate - however, she has already demonstrated that she can not tolerate this and management with outpt referrals does not seem feasible The above was discussed directly with Mrs. Andrew and she agrees with the plan - quesitons answered Also discussed with PGY3 Additional Plan Additional Plan: Provider Notation Provider Notation:
--- NOTE | 2024-11-09 14:53 | PC.CC ---
Addendum entered by Nivia Lim RN 11/09/24 16:41: 1628: Gisselle w/ [facility], pt has been accepted to [facility] by Dr. Rajni Mg. Per Gisselle, need insurance auth. Per Eneida, they are a contracted provider and will provided auth on Tuesday. Gisselle will speak to her small appliance assembly supervisor on how to proceed. She can can call back and speak to the mix house tender. Addendum entered by Nivia Lim RN 11/09/24 15:55: 1549: Gisselle called and said their cardio/thoraci surgeon will consult, waiting for hospitalist to accept. Addendum entered by Nivia Lim RN 11/09/24 15:45: 1516: clinicals and imaging sent to . Transfer request initiated, she stated she will need auth. I informed her I would need provider information. She stated she will have a nurse review clinicals and imaging and call back. Informed her that per Dr. Chan, pt is stable at this time and is aware pt may not transfer over the weekend. 1515: Per Tricia garcia/ [facility], declined pt at this time to inpatient capacity but to try again tomorrow. She suggested i try [facility] in [place]. Per Eneida garcia/ Katelyn, all [facility] [place]. Original Note: 1442: Spoke to [facility], she confirmed receipt of clinicals. images sent via synapse. She will call back when she receives and reviews the images. 1350: Clinicals sent to Loraine and [facility]. 1339: Spoke to Eneida Zepeda - pt's insurance. informed her of the transfer request and the possibility of ins auth requirement. She requested clinicals be sent to her as well for review. She can not provide insurance auth at this time without and accepting facility and provider. She directed me to reach out to contracted facilities such as [facility] and [facility]. 1335: received call from Dr. Wang for transfer request for cardiovascular/thoracic surg for surgical decortication of right lung. Per Dr. Chan pt is stable at this time. Pt is on room air.
[2024-11-10] VITALS (8 sets, daily range): BP systolic 104–140; BP diastolic 62–98; PULSE 65–88; RESP 16–26; TEMP 36.3–36.8; O2SAT 94–99
[2024-11-10] MEDS: HYDROcodone/APAP 5/325 TABLET 1 TAB PO ×2 (05:15→22:54)
[2024-11-10] MEDS: LEVOTHYROXINE SODIUM 25 MCG TABLET 75 MCG PO (05:16)
[2024-11-10 06:03] LABS: Basophils # (Auto) 0.1 Thou/mm3 (0.0-0.2); Basophils % (Auto) 1 % (0-2.5); Eosinophils # (Auto) 0.8 Thou/mm3 (0.0-0.5); Eosinophils % (Auto) 11 % (0-10); Hematocrit 46.6 % (36.0-46.0); Hemoglobin 15.5 g/dL (12.0-16.0); Immature Granulocytes Auto 0.02 Thou/mm3 (0.00-0.00); Lymphocytes # (Auto) 1.1 Thou/mm3 (1.0-4.8); Lymphocytes % (Auto) 14 % (10-50); Mean Corpuscular HGB Conc 33.3 g/dl (31.0-37.0); Mean Corpuscular Hemoglobin 29.6 pg (25.0-35.0); Mean Corpuscular Volume 89 fL (80-100); Monocytes # (Auto) 0.7 Thou/mm3 (0.0-0.8); Monocytes % (Auto) 10 % (0-12); Neutrophils # (Auto) 4.9 Thou/mm3 (1.8-7.7); Neutrophils % (Auto) 64 % (37-80); Nucleated Red Blood Cell # 0.00 Thou/mm3 (0.00-0.00); Nucleated Red Blood Cell % 0 /100 WBC (0); Platelet Count 318 Thou/mm3 (140-440); RDW Standard Deviation 43.9 fL (36.4-46.3); Red Blood Count 5.24 Miln/mm3 (4.00-5.20); White Blood Count 7.7 Thou/mm3 (3.6-11.0)
[2024-11-10 06:38] LABS: Anion Gap 8 (7-16); BUN/Creatinine Ratio 22 Ratio (12-20); Blood Urea Nitrogen 13 mg/dL (9-23); Calcium 8.6 mg/dL (8.3-10.6); Carbon Dioxide 26.2 mMol/L (20.0-31.0); Chloride 104 mMol/L (98-107); Creatinine (Component) 0.6 mg/dL (0.6-1.3); Estimated Creatinine Clearance 87.3 mL/min (>60); Glucose 90 mg/dL (74-106); Osmolality,Calculated 275 (275-295); Potassium 3.9 mMol/L (3.4-5.1); Sodium 138 mMol/L (136-145); eGFR > 60 See Note
--- NOTE | 2024-11-10 08:11 | XR_ITS ---
Examination: AP chest single view Technique one AP portable semiupright chest single view Date and time: November 10, 2024, 0827 hrs., Comparison 11/09/2024 Indications: Shortness of breath today, history right pneumothorax post thoracentesis Findings: Right chest tube satisfactory position Satisfactory expansion right lung Pleural disease right base Moderate vascular congestion Retrocardiac gastric hernia Impression: Right chest tube satisfactory position with satisfactory expansion right lung
--- NOTE | 2024-11-10 08:20 | PC.CC ---
0816: called and spoke to Trish garcia/ [facility], she confirmed pt needs ins authorization is required. I asked if it will be a different provider accepting and she stated it will be but it would just be a change in the name and not re-review. Pt is accepted. Transfer packet w/ 1 CD was created yesterday and taken to the floor. Updated information will need to be added to the transfer packet.
[2024-11-10] MEDS: SERTRALINE HCL 25 MG TABLET 50 MG PO (08:51)
[2024-11-10] MEDS: cefTRIAXone/D5w 1gm IV premix 1 GM/50 ML BAG IV (08:52)
[2024-11-10] MEDS: LETROZOLE 2.5 MG PO (10:42)
--- NOTE | 2024-11-10 11:22 | ESPR_ITS ---
Documentation for date of: 11/10/24 Subjective Subjective Interval history: Patient seen and assessed in hospital bed denies having any concerning symptoms and pain is currently managed. Patient is in full agreement to be transferred for decortication of the lung tissue, pending insurance authorization and transfer on 11/12. Will continue to monitor the patient for any acute changes. Exam Vital Signs Temp Pulse Resp BP Pulse Ox O2 Del Method O2 Flow Rate 98.0 F 86 26 H 111/69 94 L Room Air 2 11/10/24 07:52 11/10/24 08:00 11/10/24 07:52 11/10/24 07:52 11/10/24 07:52 11/10/24 04:00 11/09/24 18:51 Narrative Exam Physical Exam: General: Alert, no acute distress. Skin: Warm, dry, intact. Head: Normocephalic, atraumatic. Eye: Normal conjunctiva, PERRL. Cardiovascular: Regular rate and rhythm, no murmur, +S1/S2. Respiratory: Chest tube in place. Respirations unlabored, no crackles, no wheezing. Minimal breath sounds appreciated on RLL. Gastrointestinal: Soft, nontender, non-distended. No guarding or rebound tenderness. Extremities: No edema, no cyanosis, no clubbing. Neuro: No focal deficits observed. Conversant, moving all extremities. No overt cerebellar signs/incoordination. Psychiatric: Cooperative, appropriate affect. Objective Labs 11/11/24 05:07 11/11/24 05:07 Labs: Laboratory Results - last 24 hr 11/10/24 05:32 WBC 7.7 RBC 5.24 H Hgb 15.5 Hct 46.6 H MCV 89 MCH 29.6 MCHC 33.3 RDW Std Deviation 43.9 Plt Count 318 D Neut % (Auto) 64 Lymph % (Auto) 14 [place] % (Auto) 10 Eos % (Auto) 11 H Baso % (Auto) 1 Neut # (Auto) 4.9 Lymph # (Auto) 1.1 [place] # (Auto) 0.7 Eos # (Auto) 0.8 H Baso # (Auto) 0.1 Immature Gran # (Auto) 0.02 H Absolute Nucleated RBC 0.00 Immature Gran % 0 Nucleated RBC % 0 Sodium 138 Potassium 3.9 Chloride 104 Carbon Dioxide 26.2 Anion Gap 8 BUN 13 Creatinine 0.6 Estim Creat Clear Calc 87.3 eGFR > 60 BUN/Creatinine Ratio 22 H Glucose 90 Calculated Osmolality 275 Calcium 8.6 Quality Measures Quality Measures VTE prophylaxis Advance care planning discussed with:: patient Assessment & Plan Assessment Current Active Medications: Generic Name Dose Route Start Last Admin Trade Name Freq PRN Reason Stop Dose Admin Acetaminophen 650 mg 11/07/24 08:37 11/08/24 06:21 Acetaminophen 325 Mg Tablet PO 12/06/24 22:15 650 mg Q6H PRN Administration Fever >101.5 AND PAIN Protocol Albuterol/Ipratropium 3 ml 11/07/24 02:51 Albuterol/Ipratropium (Duoneb) Rt Zo 3 Ml Nebu INH 12/07/24 02:50 Q2HR PRN SHORTNESS OF BREATH OR WHEEZE Guaifenesin 600 mg 11/08/24 10:45 11/10/24 08:51 Guaifenesin Er 600 Mg Tabcr PO 12/08/24 10:44 600 mg BID CHAPARRO Administration Letrozole 2.5 mg 11/10/24 09:45 11/10/24 10:42 Letrozole 2.5 Mg Tablet (Non-Formulary) PO 12/10/24 09:44 2.5 mg QDAY CHAPARRO Administration Levothyroxine Sodium 75 mcg 11/07/24 06:00 11/10/24 05:16 Levothyroxine Sodium 25 Mcg Tablet PO 12/07/24 05:59 75 mcg ACBR CHAPARRO Administration Sertraline HCl 50 mg 11/08/24 09:00 11/10/24 08:51 Sertraline Hcl 25 Mg Tablet PO 12/08/24 08:59 50 mg QDAY CHAPARRO Administration Plan Mrs. Andrew is a 64-year-old female past medical significant of asthma, breast cancer s/p mastectomy 2017, thyroid cancer s/p thyroidectomy 2021 and radiation therapy, who presented to the ED on 11/06/2024 with chief complaint of shortness of breath, generalized weakness and chills for the past two weeks. Patient was admitted for right large pleural effusion secondary to metastatic lung cancer. #Massive right-sided pleural effusion with total atelectasis right lung #Status post thoracentesis 11/07/24 and 11/08/24 #Hydropneumothorax #Enlarging pulmonary nodules #Asthma Chest CT massive right pleural effusion with total atelectasis right lung, enlarging pulmonary nodules left lung consistent with progression of metastatic disease compared with July 10, 2024 imaging. CXR showed total opacification right hemithorax. Chest CTA negative for pulmonary artery emboli, massive right pleural effusion with total collapse of the right lung Thoracentesis 11/06 drained 2 L nonbloody, cloudy yellow pleural fluid. Right pleural effusion likely secondary to mets to lungs. Repeat CXR 11/08 continues to show massive right pleural effusion; 1400cc removed at which point chest tube was placed due to pneumothorax Pleural fluids analysis, collected, supports exudative effusion given positive for one of Light's criteria Carcinoembryonic antigen ordered, resulted as 1.5 CA 15?13 antigen ordered, resulted as 2.3 CA 125 antigen ordered, resulted as 140 CT Abd/P w/ con shows: right chest tube with hydropneumothorax on the right - Will discontinue Ceftriaxone 1g mg IV qday when pleural fluid analysis results - Blood cultures show no growth over 48 hours - DuoNebs q6h - Supplemental O2, titrate as tolerated to maintain SpO2 >93% - Cocci serology - Pain control - Pleural fluid cytology ordered, pending - Thyroglobulin ordered, pending - CA 19?19 antigen ordered, pending - Oncology consulted, appreciate recommendations - Pulmonology consulted, appreciate recommendations - Special Services Agent spoke with patient who is agreeable to transfer for surgical decortication as the patient has a trapped lung; pending transfer on 11/12 #Ovarian cyst vs. malignancy Tumor markers were ordered as per Radiology oncology recommendations CA 125 was elevated, likely secondary to patient's history of 16mm right adnexal cyst seen on CT Pelvis on 03/2023 Rad Onc is recommended repeating CT Abd/P with contrast to visualize other/primary source of malignancy CT Abd/P w/ con does not show any concerning ovarian mass Plan: Follow-up with Rad Onc recommendations #Gallbladder thickening As seen on CT Abd/P w/con Patient's LFTs are unremarkable Plan: Consider obtaining U/S of Abd Monitor LFT or clinical signs of GB disease #Hx Breast cancer s/p mastectomy 2017 - Follows oncology outpatient - hormone therapy letrozole 2.5mg #Hx thyroid cancer s/p thyroidectomy 2021 - Follows with oncology Dr. Flowers, who has been consulted - Continue Home levothyroxine 75mg ACBR #Depression Patient diagnosed s/p breast cancer. - Continue home sertraline 50 mg Health Maintenance: DVT Prophylaxis: Heparin GI Prophylaxis: N/A Bowel: N/A Diet: Regular Mccallum: N/A Lines: Peripheral IV Antibiotics: Ceftriaxone (11/06--) Code Status: FULL Patient seen and assessed with attending Dr. Dustin Silvestre DO PGY-2 Internal Medicine Attending Provider Attestation/Addendum I have examined the patient, reviewed labs and imaging findings, discussed the case with the resident(s), and reviewed entered orders. I agree with the plan of care as outlined in this note, with these additional summaries/recommendations: Patient seen at bedside. No acute overnight events. Patient endorses mild discomfort at chest tube insertion site although no other complaints at this time. Patient was excepted to [facility] in [place] and pending insurance authorization for transfer. Patient is status post thoracentesis X 2. Lites criteria reviewed and patient meets criteria for exudative effusion which is unfortunately most likely secondary to malignancy versus less likely infection. Continue supplemental oxygen. Continue IV antibiotic while awaiting Gram stain and culture results. If no growth we will discontinue antibiotics as lower suspicion for infectious etiology. Patient is status post repeat thoracentesis on 11/08/2024 with we will discuss findings with 1400 cc removed. She was suspected of developing pneumothorax after repeat thoracentesis and chest tube was placed. Case discussed with in-house pulmonology and likely more related to trapped lung. We have notified transfer nurse to arrange transfer for decortication at tertiary center. Patient also found to have enlarging pulmonary nodules and case discussed with interventional radiology who is in agreement to proceed with biopsy on Tuesday although if patient is transferred in the meantime then she can complete lung biopsy at excepting facility. Hold all chemical anticoagulation. She has a history of breast cancer status post bilateral mastectomy in 2018 currently on hormonal therapy and following up at oncology center. Patient also has a history of thyroid cancer status post thyroidectomy in 2021. CA125 significantly elevated and CT abdomen was obtained with no pelvic masses noted.. Continue breathing treatments as needed. Continue home levothyroxine. Continue supplemental oxygen and wean as tolerated. Cocci pending. Patient updated on the plan and in agreement. All questions answered to satisfaction. Please see residents note for additional details and management. Dr. Dustin MD
[2024-11-10] MEDS: ACETAMINOPHEN 325 MG TABLET 650 MG PO ×2 (14:44→20:40)
[2024-11-11] VITALS (10 sets, daily range): BP systolic 99–130; BP diastolic 66–83; PULSE 54–82; RESP 16–19; TEMP 35.9–36.4; O2SAT 97–100
[2024-11-11 05:29] LABS: Basophils # (Auto) 0.1 Thou/mm3 (0.0-0.2); Basophils % (Auto) 1 % (0-2.5); Eosinophils # (Auto) 1.0 Thou/mm3 (0.0-0.5); Eosinophils % (Auto) 13 % (0-10); Hematocrit 44.5 % (36.0-46.0); Hemoglobin 14.6 g/dL (12.0-16.0); Immature Granulocytes Auto 0.03 Thou/mm3 (0.00-0.00); Lymphocytes # (Auto) 1.3 Thou/mm3 (1.0-4.8); Lymphocytes % (Auto) 17 % (10-50); Mean Corpuscular HGB Conc 32.8 g/dl (31.0-37.0); Mean Corpuscular Hemoglobin 29.6 pg (25.0-35.0); Mean Corpuscular Volume 90 fL (80-100); Monocytes # (Auto) 0.7 Thou/mm3 (0.0-0.8); Monocytes % (Auto) 9 % (0-12); Neutrophils # (Auto) 4.7 Thou/mm3 (1.8-7.7); Neutrophils % (Auto) 60 % (37-80); Nucleated Red Blood Cell # 0.00 Thou/mm3 (0.00-0.00); Nucleated Red Blood Cell % 0 /100 WBC (0); Platelet Count 342 Thou/mm3 (140-440); RDW Standard Deviation 44.3 fL (36.4-46.3); Red Blood Count 4.93 Miln/mm3 (4.00-5.20); White Blood Count 7.8 Thou/mm3 (3.6-11.0)
[2024-11-11] MEDS: LEVOTHYROXINE SODIUM 25 MCG TABLET 75 MCG PO (05:40)
[2024-11-11 05:52] LABS: Anion Gap 9 (7-16); BUN/Creatinine Ratio 13 Ratio (12-20); Blood Urea Nitrogen 9 mg/dL (9-23); Calcium 8.8 mg/dL (8.3-10.6); Carbon Dioxide 26.4 mMol/L (20.0-31.0); Chloride 105 mMol/L (98-107); Creatinine (Component) 0.7 mg/dL (0.6-1.3); Estimated Creatinine Clearance 74.8 mL/min (>60); Glucose 88 mg/dL (74-106); Osmolality,Calculated 277 (275-295); Potassium 4.0 mMol/L (3.4-5.1); Sodium 140 mMol/L (136-145); eGFR > 60 See Note
[2024-11-11] MEDS: LIDOCAINE 5% 1 PATCH TOP (06:11)
[2024-11-11] MEDS: SERTRALINE HCL 25 MG TABLET 50 MG PO (08:15)
[2024-11-11] MEDS: LETROZOLE 2.5 MG PO (08:17)
--- NOTE | 2024-11-11 09:12 | PC.CC ---
11/09 and 11/10 progress notes, lab, and imaging reports printed and added to transfer packet.
--- NOTE | 2024-11-11 10:13 | XR_ITS ---
Examination: AP chest single view Technique one AP upright portable chest single view Date and time: November 11, 2024, 1059 hrs., Comparison 11/10/2024 Indications: History pneumothorax post right thoracentesis, post chest tube placement Findings: Right chest tube satisfactory position Satisfactory expansion right lung. Pneumonia right base with right pleural fluid No significant cardiac enlargement Impression: Right chest tube satisfactory position with satisfactory expansion right lung
--- NOTE | 2024-11-11 15:27 | ESPR_ITS ---
Documentation for date of: 11/11/24 Subjective Subjective Interval history: No acute overnight events. Denies any other complaints Still had chest tube in situ containing around 200 cc of fluid in the last 4 hours. Chest x-ray done today Still pending transfer. Waiting for insurance authorization which will be likely done on Tuesday. Exam Vital Signs Temp Pulse Resp BP Pulse Ox O2 Del Method O2 Flow Rate 97.5 F 72 16 99/82 99 Nasal Cannula 2 11/11/24 11:49 11/11/24 11:49 11/11/24 11:49 11/11/24 11:49 11/11/24 11:49 11/11/24 11:49 11/11/24 11:49 Narrative Exam General: Alert, no acute distress. Skin: Warm, dry, intact. Head: Normocephalic, atraumatic. Eye: Normal conjunctiva, PERRL. Cardiovascular: Regular rate and rhythm, no murmur, +S1/S2. Respiratory: Chest tube in place. Respirations unlabored, no crackles, no wheezing. Minimal breath sounds appreciated on RLL. Gastrointestinal: Soft, nontender, non-distended. No guarding or rebound tenderness. Extremities: No edema, no cyanosis, no clubbing. Neuro: No focal deficits observed. Conversant, moving all extremities. No overt cerebellar signs/incoordination. Psychiatric: Cooperative, appropriate affect. Objective Labs 11/12/24 05:00 11/12/24 05:00 Labs: Laboratory Results - last 24 hr 11/11/24 05:07 WBC 7.8 RBC 4.93 Hgb 14.6 Hct 44.5 MCV 90 MCH 29.6 MCHC 32.8 RDW Std Deviation 44.3 Plt Count 342 Neut % (Auto) 60 Lymph % (Auto) 17 [place] % (Auto) 9 Eos % (Auto) 13 H Baso % (Auto) 1 Neut # (Auto) 4.7 Lymph # (Auto) 1.3 [place] # (Auto) 0.7 Eos # (Auto) 1.0 H Baso # (Auto) 0.1 Immature Gran # (Auto) 0.03 H Absolute Nucleated RBC 0.00 Immature Gran % 0 Nucleated RBC % 0 Sodium 140 Potassium 4.0 Chloride 105 Carbon Dioxide 26.4 Anion Gap 9 BUN 9 Creatinine 0.7 Estim Creat Clear Calc 74.8 eGFR > 60 BUN/Creatinine Ratio 13 Glucose 88 Calculated Osmolality 277 Calcium 8.8 Quality Measures Quality Measures VTE prophylaxis Advance care planning discussed with:: patient Assessment & Plan Assessment Current Active Medications: Generic Name Dose Route Start Last Admin Trade Name Freq PRN Reason Stop Dose Admin Acetaminophen 650 mg 11/07/24 08:37 11/10/24 20:40 Acetaminophen 325 Mg Tablet PO 12/06/24 22:15 650 mg Q6H PRN Administration Fever >101.5 AND PAIN Protocol Hydrocodone Bitart/Acetaminophen 1 tab 11/11/24 11:41 Hydrocodone/Apap 5/325 Tablet PO 11/16/24 11:40 Q4HR PRN Pain 7-10 Albuterol/Ipratropium 3 ml 11/07/24 02:51 Albuterol/Ipratropium (Duoneb) Rt Zo 3 Ml Nebu INH 12/07/24 02:50 Q2HR PRN SHORTNESS OF BREATH OR WHEEZE Guaifenesin 600 mg 11/08/24 10:45 11/11/24 08:15 Guaifenesin Er 600 Mg Tabcr PO 12/08/24 10:44 600 mg BID CHAPARRO Administration Letrozole 2.5 mg 11/10/24 09:45 11/11/24 08:17 Letrozole 2.5 Mg Tablet (Non-Formulary) PO 12/10/24 09:44 2.5 mg QDAY CHAPARRO Administration Levothyroxine Sodium 75 mcg 11/07/24 06:00 11/11/24 05:40 Levothyroxine Sodium 25 Mcg Tablet PO 12/07/24 05:59 75 mcg ACBR CHAPARRO Administration Sertraline HCl 50 mg 11/08/24 09:00 11/11/24 08:15 Sertraline Hcl 25 Mg Tablet PO 12/08/24 08:59 50 mg QDAY CHAPARRO Administration Plan Mrs. Andrew is a 64-year-old female past medical significant of asthma, breast cancer s/p mastectomy 2017, thyroid cancer s/p thyroidectomy 2021 and radiation therapy, who presented to the ED on 11/06/2024 with chief complaint of shortness of breath, generalized weakness and chills for the past two weeks. Patient was admitted for right large pleural effusion secondary to metastatic lung cancer. #Massive right-sided pleural effusion with total atelectasis right lung #Status post thoracentesis 11/07/24 and 11/08/24 #Hydropneumothorax #Enlarging pulmonary nodules #Asthma Chest CT massive right pleural effusion with total atelectasis right lung, enlarging pulmonary nodules left lung consistent with progression of metastatic disease compared with July 10, 2024 imaging. CXR showed total opacification right hemithorax. Chest CTA negative for pulmonary artery emboli, massive right pleural effusion with total collapse of the right lung Thoracentesis 11/06 drained 2 L nonbloody, cloudy yellow pleural fluid. Right pleural effusion likely secondary to mets to lungs. Repeat CXR 11/08 continues to show massive right pleural effusion; 1400cc removed at which point chest tube was placed due to pneumothorax Pleural fluids analysis, collected, supports exudative effusion given positive for one of Light's criteria Carcinoembryonic antigen ordered, resulted as 1.5 CA 15?13 antigen ordered, resulted as 2.3 CA 125 antigen ordered, resulted as 140 CT Abd/P w/ con shows: right chest tube with hydropneumothorax on the right - Will discontinue Ceftriaxone 1g mg IV qday when pleural fluid analysis results - Blood cultures show no growth over 48 hours - DuoNebs q6h - Supplemental O2, titrate as tolerated to maintain SpO2 >93% - Cocci serology - Pain control - Pleural fluid cytology ordered, showed malignant cells, likely from breast cancer - Thyroglobulin ordered, pending - CA 19?19 antigen ordered, pending - Oncology consulted, appreciate recommendations - Mediation Commissioner spoke with patient who is agreeable to transfer for surgical decortication as the patient has a trapped lung; pending transfer on 11/12 #Ovarian cyst vs. malignancy Tumor markers were ordered as per Radiology oncology recommendations CA 125 was elevated, likely secondary to patient's history of 16mm right adnexal cyst seen on CT Pelvis on 03/2023 Rad Onc is recommended repeating CT Abd/P with contrast to visualize other/primary source of malignancy CT Abd/P w/ con does not show any concerning ovarian mass Plan: Follow-up with Rad Onc recommendations #Gallbladder thickening As seen on CT Abd/P w/con Patient's LFTs are unremarkable Plan: Monitor LFT or clinical signs of GB disease #Hx Breast cancer s/p mastectomy 2017 - Follows oncology outpatient - hormone therapy letrozole 2.5mg #Hx thyroid cancer s/p thyroidectomy 2021 - Follows with oncology Dr. Flowers, who has been consulted - Continue Home levothyroxine 75mg ACBR #Depression Patient diagnosed s/p breast cancer. - Continue home sertraline 50 mg Health Maintenance: DVT Prophylaxis: Heparin GI Prophylaxis: N/A Bowel: N/A Diet: Regular Lines: Peripheral IV Code Status: FULL Patient plan of care was discussed with the attending physician, Dr. Dustin Wang, PGY2 Attending Provider Attestation/Addendum I have examined the patient, reviewed labs and imaging findings, discussed the case with the resident(s), and reviewed entered orders. I agree with the plan of care as outlined in this note, with these additional summaries/recommendations: Patient seen at bedside. No acute overnight events. Patient was accepted to [facility] in [place] and pending insurance authorization for transfer. Patient is status post thoracentesis X 2. Lites criteria reviewed and patient meets criteria for exudative effusion which is unfortunately secondary to malignancy. Continue supplemental oxygen. DC abx, gram stain and cx still pending from pleural fluid although suspicion of infection is low at this time and antibiotic discontinued. Patient is status post repeat thoracentesis on 11/08/2024 with 1400 cc removed. She was suspected of developing pneumothorax after repeat thoracentesis and chest tube was placed. Case discussed with in-house pulmonology and likely more related to trapped lung. Repeat chest xray today 11/11/24 shows chest tube is still in good position and resolution of pneumothorax. Patient continues to have 150-250 cc output daily from chest tube which we will keep in place for now given how fast pleural fluid reaccumulates. Unfortunately cytology from pleural fluid returned revealing malignant cells consistent with breast carcinoma involving pleural space. Neoplastic cells are MOC-31 (+), CK7 (+), GATA3 (+), TTF1(-), CD68 (-), CK20(-), and Calretinin(-). Patient also found to have enlarging pulmonary nodules and case discussed with interventional radiology who is in agreement to proceed with biopsy on Tuesday if patient remains.. Hold all chemical anticoagulation. She has a history of breast cancer status post bilateral mastectomy in 2017 currently on hormonal therapy and following up at oncology center. Patient also has a history of thyroid cancer status post thyroidectomy in 2021. CA125 significantly elevated and CT abdomen was obtained with no pelvic masses noted. Continue breathing treatments as needed. Continue home levothyroxine. Continue supplemental oxygen and wean as tolerated. Cocci pending. Patient updated on the plan and in agreement. All questions answered to satisfaction. Please see residents note for additional details and management. Dr. Dustin MD
--- NOTE | 2024-11-11 18:15 | PD.ONCPROG ---
Documentation for date of: 11/11/24 Subjective Subjective Interval history: Patient appears comfortable this p.m. awaiting transfer to [place] for decortication of lung tissue. Pleural fluid revealed malignant cells consistent with breast carcinoma. Exam Vital Signs Temp Pulse Resp BP Pulse Ox O2 Del Method O2 Flow Rate 97.5 F 66 16 113/83 99 Nasal Cannula 2 11/11/24 16:00 11/11/24 16:34 11/11/24 16:00 11/11/24 16:00 11/11/24 16:00 11/11/24 16:00 11/11/24 16:00 Narrative Exam Appearing comfortable Objective Labs 11/11/24 05:07 11/11/24 05:07 Labs: Laboratory Results - last 24 hr 11/11/24 05:07 WBC 7.8 RBC 4.93 Hgb 14.6 Hct 44.5 MCV 90 MCH 29.6 MCHC 32.8 RDW Std Deviation 44.3 Plt Count 342 Neut % (Auto) 60 Lymph % (Auto) 17 [place] % (Auto) 9 Eos % (Auto) 13 H Baso % (Auto) 1 Neut # (Auto) 4.7 Lymph # (Auto) 1.3 [place] # (Auto) 0.7 Eos # (Auto) 1.0 H Baso # (Auto) 0.1 Immature Gran # (Auto) 0.03 H Absolute Nucleated RBC 0.00 Immature Gran % 0 Nucleated RBC % 0 Sodium 140 Potassium 4.0 Chloride 105 Carbon Dioxide 26.4 Anion Gap 9 BUN 9 Creatinine 0.7 Estim Creat Clear Calc 74.8 eGFR > 60 BUN/Creatinine Ratio 13 Glucose 88 Calculated Osmolality 277 Calcium 8.8 Assessment & Plan A&P Narrative 1. Massive right pleural effusion status postthoracentesis in patient with history of early-stage breast cancer and moderate stage II thyroid cancer. 2. Pleural fluid cytology reveals malignant cells consistent with breast CA involving pleural space. 3. Moderate elevation of CA125. No suspicious masses seen in abdomen and pelvis suggestive of BOTTLE CASER primary. 4. Awaiting transfer to thoracic surgery [place] for possible decortication of right lung. This will also provide additional tissue sample for more accurate immuno histochemistry of her likely breast malignancy. Time Spent With Patient Time: Total time spent is greater than 50% in coordination of care (as documented) at patient's floor/unit and/or counseling patient:
[2024-11-11] MEDS: HYDROcodone/APAP 5/325 TABLET 1 TAB PO ×2 (19:25→23:49)
[2024-11-12] VITALS (9 sets, daily range): BP systolic 109–138; BP diastolic 68–78; PULSE 55–72; RESP 15–20; TEMP 36.1–36.8; O2SAT 94–99
[2024-11-12] MEDS: LEVOTHYROXINE SODIUM 25 MCG TABLET 75 MCG PO (05:40)
[2024-11-12 05:47] LABS: Basophils # (Auto) 0.1 Thou/mm3 (0.0-0.2); Basophils % (Auto) 1 % (0-2.5); Eosinophils # (Auto) 0.8 Thou/mm3 (0.0-0.5); Eosinophils % (Auto) 11 % (0-10); Hematocrit 45.3 % (36.0-46.0); Hemoglobin 14.4 g/dL (12.0-16.0); Immature Granulocytes Auto 0.03 Thou/mm3 (0.00-0.00); Lymphocytes # (Auto) 1.2 Thou/mm3 (1.0-4.8); Lymphocytes % (Auto) 15 % (10-50); Mean Corpuscular HGB Conc 31.8 g/dl (31.0-37.0); Mean Corpuscular Hemoglobin 28.7 pg (25.0-35.0); Mean Corpuscular Volume 90 fL (80-100); Monocytes # (Auto) 0.7 Thou/mm3 (0.0-0.8); Monocytes % (Auto) 9 % (0-12); Neutrophils # (Auto) 5.0 Thou/mm3 (1.8-7.7); Neutrophils % (Auto) 64 % (37-80); Nucleated Red Blood Cell # 0.00 Thou/mm3 (0.00-0.00); Nucleated Red Blood Cell % 0 /100 WBC (0); Platelet Count 377 Thou/mm3 (140-440); RDW Standard Deviation 44.6 fL (36.4-46.3); Red Blood Count 5.02 Miln/mm3 (4.00-5.20); White Blood Count 7.9 Thou/mm3 (3.6-11.0)
[2024-11-12 06:10] LABS: Anion Gap 8 (7-16); BUN/Creatinine Ratio 13 Ratio (12-20); Blood Urea Nitrogen 9 mg/dL (9-23); Calcium 8.9 mg/dL (8.3-10.6); Carbon Dioxide 27.3 mMol/L (20.0-31.0); Chloride 105 mMol/L (98-107); Creatinine (Component) 0.7 mg/dL (0.6-1.3); Estimated Creatinine Clearance 74.8 mL/min (>60); Glucose 80 mg/dL (74-106); Osmolality,Calculated 277 (275-295); Potassium 4.7 mMol/L (3.4-5.1); Sodium 140 mMol/L (136-145); eGFR > 60 See Note
[2024-11-12] MEDS: HYDROcodone/APAP 5/325 TABLET 1 TAB PO ×3 (07:52→23:57)
--- NOTE | 2024-11-12 08:12 | XR_ITS ---
Examination: AP chest single view TECHNIQUE: AP portable upright chest single view Date and time: November 12, 2024 1009 hours, comparison November 11, 2024 INDICATIONS: History right pneumothorax post thoracentesis last week FINDINGS: Right chest tube satisfactory position Air in the soft tissue right lateral chest wall Mild elevation right hemidiaphragm Subsegmental atelectasis right base No pneumothorax depicted Normal heart size IMPRESSION: Right chest tube satisfactory position, satisfactory expansion right lung
[2024-11-12] MEDS: LETROZOLE 2.5 MG PO (08:50)
[2024-11-12] MEDS: SERTRALINE HCL 25 MG TABLET 50 MG PO (08:52)
[2024-11-12 09:18] LABS: Thyroglobulin Antibodies* <1 IU/mL (< OR = 1)
--- NOTE | 2024-11-12 10:30 | PD.RESDS ---
Planned Discharge Date 11/12/24 DS: Providers Provider Date of admission: 11/06/24 22:16 Primary care physician: Trevor Suggs MD Admitting Provider: Varsha Caldwell MD Attending Provider on Admission: Syd Chan MD Consults: 11/07/24 03:15 Consult to Oncology Routine Comment: Consulting Provider: Duane Flowers 11/08/24 13:26 Consult to Pulmonology Routine Comment: R pleural effusion, malignancy Consulting Provider: Jorge Luis Chatman 11/09/24 13:36 Referral - Concrete Carpenter Stat Service Needed for Transfer: Cardiovascular/Thoracic Surg Addl Comments:: For surgical decortication of right lung Attending Provider on DC: Syd Chan MD Discharging Provider: Aftab Forman DO Anticipated date of discharge: 11/12/24 DS: Diagnosis Problem List Completed Was Problem List Reviewed/Reconciled?: Yes Hospital Course Hospital Course Hospital course: Reason for hospitalization: Acute hypoxic respiratory failure Summary: Mrs. Andrew is a 64-year-old female past medical significant of asthma, breast cancer s/p mastectomy 2017, thyroid cancer s/p thyroidectomy 2021 and radiation therapy, who presented to the ED on 11/06/2024 with chief complaint of shortness of breath, generalized weakness and chills for the past two weeks. Patient was admitted for acute hypoxic respiratory failure secondary to right large pleural effusion. The patient symptoms started about 2 weeks ago, and when she went to see her PCP, the patient was diagnosed with emphysema. During a follow-up visit 1 week later, symptoms persisted, so her PCP ordered a checks x-ray, which showed a large right-sided pleural effusion. The patient was advised to go to the ED for further evaluation. In the ED, the patient received a CT chest, which was noted to show a massive right-sided pleural effusion with total atelectasis of the right lung along with enlarging pulmonary nodules in the left lung consistent with progression of her metastatic disease. The patient was well aware of her pulmonary nodules in the past as she recently had a PET scan in 05/31/2024 at [facility] which showed multiple small pulmonary nodules in the lungs bilaterally that were hypermetabolic in the past and appeared to be slightly more hypermetabolic with her most recent scan. At the time, biopsy of those pulmonary nodules were not pursued. Due to the patient's large right pleural effusion, the patient underwent an emergent thoracentesis, which drained 2 L of nonbloody pleural fluid, which was noted to improve the patient's shortness of breath afterwards. The pleural fluid was noted to be straw-colored in appearance with pleural WBC 1713, total pleural protein 4.5, pleural LDH 194, and pleural glucose at 54. Given that serum LDH 127 and serum total protein 6.8, no pleural fluid was suggestive of an exudative pleural fluid. Given that the patient still had a significant right pleural effusion on chest x-ray even after the initial thoracentesis, and given the patient's past history of malignancies and pulmonary nodules, pulmonology was consulted in 11/08. Hot Tar Roofer Helper believed that this is the case was highly suggestive of a pleural effusion secondary to metastatic spread to the lungs, and recommended a repeat ultrasound-guided thoracentesis. At the time, chest tube was not pursued as the patient did not want one. On repeat thoracentesis on 11/08, 1.4 L of pleural fluid was removed, however the lung unfortunately failed to reexpand, which required emergency chest tube placement. The chest tube ultimately significantly helped with drainage of the right pleural effusion as shown on the repeat chest x-rays. On 11/09, the patient cytology from the pleural fluid analysis resulted as showing malignant cells consistent with breast carcinoma in the pleural space. After reviewing the case further, the computer programmer recommended transfer to a tertiary center for surgical decortication to help relieve future pleural fluid accumulation and for biopsy of the pulmonary cortical tissue for further identification of the patient's malignancy. In addition to pulmonology, oncology was also consulted on 11/06. Oncology initially ordered multiple tests, the only 1 of which that was abnormal was an elevated CA125. The patient had a CT pelvis which was performed on 03/25/2023 which showed a 16mm right adnexal cyst, which was not noted to be present on the abdomen pelvis CT done on 11/09/2024, so it is unclear if there is previous cyst finding could have been related to the malignancy. On 11/12, the patient was accepted to [facility] for surgical decortication and tissue biopsy collection/identification. At this time, the patient is stable and medically cleared to be transferred to this tertiary center, however is not yet cleared to be discharged. Hospital Diagnoses: #Massive right-sided pleural effusion with total atelectasis right lung #Status post thoracentesis 11/07/24 and 11/08/24 #Hydropneumothorax #Enlarging pulmonary nodules 2/2 #Breast carcinoma, metastatic #Asthma #Ovarian cyst vs. malignancy #Gallbladder thickening #Hx Breast cancer s/p mastectomy 2017 #Hx thyroid cancer s/p thyroidectomy 2021 #Depression Patient plan of care was discussed with attending physician Dr. Dustin Forman, PGY-1 Status at Discharge Overall status at discharge: patient is not back to baseline Time Spent with Patient Time attestation: Total time spent providing and/or coordinating discharge services: Time spent: Greater than 30 minutes Exam Vital Signs Temp Pulse Resp BP Pulse Ox O2 Del Method O2 Flow Rate 98.3 F 60 18 118/70 96 Nasal Cannula 1 11/12/24 08:57 11/12/24 08:57 11/12/24 08:57 11/12/24 08:57 11/12/24 08:57 11/12/24 08:57 11/12/24 08:57 Narrative Exam Physical Exam: General: Alert, no acute distress. Skin: Warm, dry, intact. Head: Normocephalic, atraumatic. Eye: Normal conjunctiva, PERRL. Cardiovascular: Regular rate and rhythm, no murmur, +S1/S2. Respiratory:Respirations unlabored, no crackles, no wheezing. No breath sounds appreciated on RLL. Gastrointestinal: Soft, nontender, non-distended. No guarding or rebound tenderness. Extremities: No edema, no cyanosis, no clubbing. Neuro: No focal deficits observed. Conversant, moving all extremities. No overt cerebellar signs/incoordination. Psychiatric: Cooperative, appropriate affect. Discharge Plan Prescriptions/Referrals Prescriptions/Med Rec: No Action Fluticasone/Vilanterol (Breo Ellipta 100-25 Mcg INH) 1 EACH AER.POW.BA 1 ea IH QDAY Qty: 0 letrozole 2.5 mg tablet 2.5 mg PO .am sertraline 50 mg tablet 50 mg PO HS celecoxib 200 mg capsule 200 mg PO Q24H Patient Comments: TAKE 1 CAPSULE (200 MG) BY MOUTH EVERY DAY levothyroxine 75 mcg tablet 75 mcg PO .morning Patient Comments: TAKE 1 TABLET BY MOUTH EVERY DAY albuterol sulfate 90 mcg/actuation HFA aerosol inhaler 1 puff INHALATION PRN PRN (Reason: shortness of breath or wheezing) letrozole [Femara] 2.5 mg tablet 2.5 mg PO Q24H Referrals: Trevor Suggs MD [Primary Care Provider, [facility]] Patient/Caregiver Discharge Instructions Education Materials: Thoracentesis Dc Print Language: Yoruba Quality Discharge Quality Measures VTE prophylaxis MD Attestestation MD Attestation I have examined the patient, reviewed labs and imaging findings, discussed the case with the resident(s), and reviewed entered orders. I agree with the plan of care as outlined in this note, with these additional summaries/recommendations: Patient seen at bedside. No acute overnight events. Patient was accepted to [facility] in [place] and pending insurance authorization for transfer. Patient is status post thoracentesis X 2. Lites criteria reviewed and patient meets criteria for exudative effusion which is unfortunately secondary to malignancy. Continue supplemental oxygen. DC abx, gram stain and cx still pending from pleural fluid although suspicion of infection is low at this time and antibiotic discontinued. Patient is status post repeat thoracentesis on 11/08/2024 with 1400 cc removed. She was suspected of developing pneumothorax after repeat thoracentesis and chest tube was placed. Case discussed with in-house pulmonology and likely more related to trapped lung. Repeat chest xray today 11/11/24 shows chest tube is still in good position and resolution of pneumothorax. Patient continues to have 150-250 cc output daily from chest tube which we will keep in place for now given how fast pleural fluid reaccumulates. Unfortunately cytology from pleural fluid returned revealing malignant cells consistent with breast carcinoma involving pleural space. Neoplastic cells are MOC-31 (+), CK7 (+), GATA3 (+), TTF1(-), CD68 (-), CK20(-), and Calretinin(-). Patient also found to have enlarging pulmonary nodules and case discussed with interventional radiology who is in agreement to proceed with biopsy on Tuesday if patient remains.. Hold all chemical anticoagulation. She has a history of breast cancer status post bilateral mastectomy in 2017 currently on hormonal therapy and following up at oncology center. Patient also has a history of thyroid cancer status post thyroidectomy in 2021. CA125 significantly elevated and CT abdomen was obtained with no pelvic masses noted. Continue breathing treatments as needed. Continue home levothyroxine. Continue supplemental oxygen and wean as tolerated. Cocci pending. Patient updated on the plan and in agreement. All questions answered to satisfaction. Please see residents note for additional details and management. Time Spent: [address] Dustin MD
--- NOTE | 2024-11-12 11:58 | PC.CC ---
Addendum entered by Monica May LCSW 11/12/24 15:59: Spoke to [facility]- Linda made aware of insurance issues. Addendum entered by Monica May LCSW 11/12/24 15:58: Eneida from [employer] called back after I requested a follow up call. Coordinator repored that she is not the one that provides the auth- she directed call to patient's primary insurance. Message was left for insurance with request to call back. Original Note: Spoke to Janak from [facility] ([phone]) - confirmed patient has been accepted by Dr. Handy Ortega. Facility is pending authorization from [employer]. Spoke with Eneida from [facility] ([phone]), who asked for patient's facesheet and progress notes. Information was faxed over.
--- NOTE | 2024-11-12 15:58 | PC.SS ---
Follow up note: Higher level of care transfer.
--- NOTE | 2024-11-12 18:45 | PD.RESEVENT ---
Documentation for date of: 11/12/24 Event Note Event Note: Patient was planned to be transfered to [facility] in [place] on 11/12 for pulmonary decortication and possible biopsy, however this had unfortunately not yet proceeded due to insurance complications. The patient has been accepted and the medicine team has been told that the patient has a bed already available. Will plan to discharge the patient tomorrow as soon as the insurance complications clear up. The patient is doing well today, no acute complaints. Chest tube is still present and draining pleural fluid. Repeat CXR stable. Patient plan of care was discussed with attending physician Dr. Dustin Forman, PGY1
[2024-11-13] VITALS (11 sets, daily range): BP systolic 109–122; BP diastolic 55–77; PULSE 46–92; RESP 14–21; TEMP 36.1–36.8; O2SAT 94–100
--- NOTE | 2024-11-13 02:55 | PC.NURSE ---
HR went down to 46, DR. Guerrero was made aware. No new orders at this time.
[2024-11-13] MEDS: HYDROcodone/APAP 5/325 TABLET 1 TAB PO ×4 (04:17→21:03)
[2024-11-13] MEDS: LEVOTHYROXINE SODIUM 25 MCG TABLET 75 MCG PO (05:51)
[2024-11-13 06:55] LABS: CA 19-9 Antigen* 4 U/mL (<34)
--- NOTE | 2024-11-13 07:55 | PC.CC ---
Addendum entered by Ivon Cortes RN 11/13/24 10:51: Zachary from [facility] called back and asked all clinicals be faxed to [phone] get auth, stat transfer auth requests take up to 72 hours, he states for follow up questions call main number [phone], chart faxed will wait for call back Addendum entered by Ivon Cortes RN 11/13/24 09:01: Clinicals from yesterday faxed to [facility] Addendum entered by Ivon Cortes RN 11/13/24 08:51: Cinthya from [employer] called back at this time for update on insurance, explained difficulties with insurance, clinicals need to be sent. Addendum entered by Ivon Cortes RN 11/13/24 08:49: Left voicemail for jenny Vanessa to call back, Called Jenny [facility] who states this patient is not theirs. Spoke to Eneida at [facility] who states she can not help with auth, called back and left a voicemail for call back. Original Note: Left voicemail for [facility] benefit sales support administrator requesting call back for insurance auth for transfer
[2024-11-13] MEDS: SERTRALINE HCL 25 MG TABLET 50 MG PO (08:49)
[2024-11-13] MEDS: LETROZOLE 2.5 MG PO (08:50)
--- NOTE | 2024-11-13 09:15 | CHAP ---
Visited with patient and gave comfort, encouragement and prayer.
--- NOTE | 2024-11-13 11:49 | PD.RESPRO ---
Documentation for date of: 11/13/24 Subjective Subjective Interval history: Overnight events: No acute events overnight. Patient was seen and examined at bedside. AM vitals and labs reviewed. Patient not in any acute distress. Chest tube in place and draining. Pending transfer for pulmonary decortication, hopefully today, just waiting for insurance. Will do labs every other day for now. Review of systems otherwise negative except for what is mentioned above. Exam Vital Signs Temp Pulse Resp BP Pulse Ox O2 Del Method O2 Flow Rate 98.3 F 67 20 109/57 L 95 Nasal Cannula 1 11/13/24 11:39 11/13/24 11:39 11/13/24 11:39 11/13/24 11:39 11/13/24 11:39 11/13/24 11:39 11/13/24 11:39 Narrative Exam Physical Exam: General: Alert, no acute distress. Skin: Warm, dry, intact. Head: Normocephalic, atraumatic. Eye: Normal conjunctiva, PERRL. Cardiovascular: Regular rate and rhythm, no murmur, +S1/S2. Respiratory:Respirations unlabored, no crackles, no wheezing. Soft breath sounds appreciated on RLL. Gastrointestinal: Soft, nontender, non-distended. No guarding or rebound tenderness. Extremities: No edema, no cyanosis, no clubbing. Neuro: No focal deficits observed. Conversant, moving all extremities. No overt cerebellar signs/incoordination. Psychiatric: Cooperative, appropriate affect. Objective Labs 11/14/24 05:36 11/14/24 05:36 Labs: Laboratory Results - last 24 hr 11/06/24 11/07/24 22:44 09:47 CA 19-9 Antigen 4 Coccidioides Ab See Sep Rpt Quality Measures Quality Measures VTE prophylaxis Advance care planning discussed with:: patient and other Assessment & Plan Assessment Current Active Medications: Generic Name Dose Route Start Last Admin Trade Name Freq PRN Reason Stop Dose Admin Acetaminophen 650 mg 11/07/24 08:37 11/10/24 20:40 Acetaminophen 325 Mg Tablet PO 12/06/24 22:15 650 mg Q6H PRN Administration Fever >101.5 AND PAIN Protocol Hydrocodone Bitart/Acetaminophen 1 tab 11/11/24 11:41 11/13/24 04:17 Hydrocodone/Apap 5/325 Tablet PO 11/16/24 11:40 1 tab Q4HR PRN Administration Pain 7-10 Albuterol/Ipratropium 3 ml 11/07/24 02:51 Albuterol/Ipratropium (Duoneb) Rt Zo 3 Ml Nebu INH 12/07/24 02:50 Q2HR PRN SHORTNESS OF BREATH OR WHEEZE Guaifenesin 600 mg 11/08/24 10:45 11/13/24 08:54 Guaifenesin Er 600 Mg Tabcr PO 12/08/24 10:44 600 mg BID CHAPARRO Administration Letrozole 2.5 mg 11/10/24 09:45 11/13/24 08:50 Letrozole 2.5 Mg Tablet (Non-Formulary) PO 12/10/24 09:44 2.5 mg QDAY CHAPARRO Administration Levothyroxine Sodium 75 mcg 11/07/24 06:00 11/13/24 05:51 Levothyroxine Sodium 25 Mcg Tablet PO 12/07/24 05:59 75 mcg ACBR CHAPARRO Administration Sertraline HCl 50 mg 11/08/24 09:00 11/13/24 08:49 Sertraline Hcl 25 Mg Tablet PO 12/08/24 08:59 50 mg QDAY CHAPARRO Administration Plan Mrs. Andrew is a 64-year-old female past medical significant of asthma, breast cancer s/p mastectomy 2017, thyroid cancer s/p thyroidectomy 2021 and radiation therapy, who presented to the ED on 11/06/2024 with chief complaint of shortness of breath, generalized weakness and chills for the past two weeks. Patient was admitted for acute hypoxic respiratory failure secondary to right large pleural effusion. #Massive right-sided pleural effusion with total atelectasis right lung #Status post thoracentesis 11/07/24 and 11/08/24 #Hydropneumothorax #Enlarging pulmonary nodules #Asthma Chest CT massive right pleural effusion with total atelectasis right lung, enlarging pulmonary nodules left lung consistent with progression of metastatic disease compared with July 10, 2024 imaging. CXR showed total opacification right hemithorax. Chest CTA negative for pulmonary artery emboli, massive right pleural effusion with total collapse of the right lung Thoracentesis 11/06 drained 2 L nonbloody, cloudy yellow pleural fluid. Right pleural effusion likely secondary to mets to lungs. Repeat CXR 11/08 continues to show massive right pleural effusion; 1400cc removed at which point chest tube was placed due to pneumothorax Pleural fluids analysis, collected, supports exudative effusion given positive for one of Light's criteria Carcinoembryonic antigen ordered, resulted as 1.5 CA 15?13 antigen ordered, resulted as 2.3 CA 125 antigen ordered, resulted as 140 CT Abd/P w/ con shows: right chest tube with hydropneumothorax on the right - Will discontinue Ceftriaxone 1g mg IV qday when pleural fluid analysis results - Blood cultures show no growth over 48 hours - DuoNebs q6h - Supplemental O2, titrate as tolerated to maintain SpO2 >93% - Cocci serology - Pain control - Pleural fluid cytology ordered, showed malignant cells, likely from breast cancer - Thyroglobulin ordered, pending - CA 19?19 antigen ordered, pending - Oncology consulted, appreciate recommendations - [place] Mixer Operator spoke with patient who is agreeable to transfer for surgical decortication as the patient has a trapped lung; pending transfer on 11/12 #Ovarian cyst vs. malignancy Tumor markers were ordered as per Radiology oncology recommendations CA 125 was elevated, likely secondary to patient's history of 16mm right adnexal cyst seen on CT Pelvis on 03/2023 Rad Onc is recommended repeating CT Abd/P with contrast to visualize other/primary source of malignancy CT Abd/P w/ con does not show any concerning ovarian mass Plan: Follow-up with Rad Onc recommendations #Gallbladder thickening As seen on CT Abd/P w/con Patient's LFTs are unremarkable Plan: Monitor LFT or clinical signs of GB disease #Hx Breast cancer s/p mastectomy 2017 - Follows oncology outpatient - hormone therapy letrozole 2.5mg #Hx thyroid cancer s/p thyroidectomy 2021 - Follows with oncology Dr. Flowers, who has been consulted - Continue Home levothyroxine 75mg ACBR #Depression Patient diagnosed s/p breast cancer. - Continue home sertraline 50 mg Health Maintenance: DVT Prophylaxis: Heparin GI Prophylaxis: N/A Bowel: N/A Diet: Regular Lines: Peripheral IV Code Status: FULL Patient plan of care was discussed with the attending physician, Dr. Talita Forman, PGY-1 Attending Provider Attestation/Addendum I have discussed and was present for the essential components of the history, physical examination, diagnosis, and treatment plan with the resident. I agree with the patient's care as documented by the resident and amended herein by me. Andrzej Sanon DO. Although this document has been carefully reviewed, there may still be some phonetic and other typographical errors. These errors are purely grammatical due to imperfections in the software program and should not be construed in any way to compromise the substance of the patient's medical care during this visit.
[2024-11-14] VITALS (10 sets, daily range): BP systolic 95–114; BP diastolic 55–70; PULSE 47–101; RESP 14–97; TEMP 36.1–36.9; O2SAT 94–100
[2024-11-14] MEDS: ALBUTEROL/IPRATROPIUM (Duoneb) RT SOL 3 ML NEBU INH (01:12)
--- NOTE | 2024-11-14 01:14 | PC.NURSE ---
called Dr. Swain regarding patient having constant cough, patient has guafenesin BID PO 500 mg, medication worked for a few hours but cough is back, per doctor to try PRN breathing treatment, no other orders received.
[2024-11-14] MEDS: LEVOTHYROXINE SODIUM 25 MCG TABLET 75 MCG PO (05:03)
[2024-11-14 05:55] LABS: Basophils # (Auto) 0.0 Thou/mm3 (0.0-0.2); Basophils % (Auto) 0 % (0-2.5); Eosinophils # (Auto) 0.7 Thou/mm3 (0.0-0.5); Eosinophils % (Auto) 8 % (0-10); Hematocrit 39.9 % (36.0-46.0); Hemoglobin 13.2 g/dL (12.0-16.0); Immature Granulocytes Auto 0.09 Thou/mm3 (0.00-0.00); Lymphocytes # (Auto) 0.8 Thou/mm3 (1.0-4.8); Lymphocytes % (Auto) 9 % (10-50); Mean Corpuscular HGB Conc 33.1 g/dl (31.0-37.0); Mean Corpuscular Hemoglobin 29.1 pg (25.0-35.0); Mean Corpuscular Volume 88 fL (80-100); Monocytes # (Auto) 0.8 Thou/mm3 (0.0-0.8); Monocytes % (Auto) 9 % (0-12); Neutrophils # (Auto) 6.8 Thou/mm3 (1.8-7.7); Neutrophils % (Auto) 74 % (37-80); Nucleated Red Blood Cell # 0.00 Thou/mm3 (0.00-0.00); Nucleated Red Blood Cell % 0 /100 WBC (0); Platelet Count 425 Thou/mm3 (140-440); RDW Standard Deviation 42.7 fL (36.4-46.3); Red Blood Count 4.53 Miln/mm3 (4.00-5.20); White Blood Count 9.3 Thou/mm3 (3.6-11.0)
[2024-11-14 06:07] LABS: Anion Gap 9 (7-16); BUN/Creatinine Ratio 17 Ratio (12-20); Blood Urea Nitrogen 10 mg/dL (9-23); Calcium 8.5 mg/dL (8.3-10.6); Carbon Dioxide 26.0 mMol/L (20.0-31.0); Chloride 105 mMol/L (98-107); Creatinine (Component) 0.6 mg/dL (0.6-1.3); Estimated Creatinine Clearance 87.3 mL/min (>60); Glucose 86 mg/dL (74-106); Osmolality,Calculated 277 (275-295); Potassium 3.6 mMol/L (3.4-5.1); Sodium 140 mMol/L (136-145); eGFR > 60 See Note
[2024-11-14] MEDS: HYDROcodone/APAP 5/325 TABLET 1 TAB PO (07:07)
[2024-11-14] MEDS: LETROZOLE 2.5 MG PO (08:56)
[2024-11-14] MEDS: SERTRALINE HCL 25 MG TABLET 50 MG PO (08:56)
--- NOTE | 2024-11-14 10:30 | PC.SS ---
Follow up note: Pt is waiting for higher level of care transfer.
--- NOTE | 2024-11-14 10:30 | PC.SS ---
Follow up note: White count high. Pt will return home with HH.
--- NOTE | 2024-11-14 12:43 | PC.CC ---
Addendum entered by Nivia Lim RN 11/14/24 18:40: when setting ambulance transport, chest tube can not be managed ambulance staff. [facility] was contacted and transfer arranged. Pt picked up at 1603 Addendum entered by Nivia Lim RN 11/14/24 14:34: 1416: Information provided to Bedside nurse Chelsea [id number]: Spoke to patient, informed her of transfer status. 1338: received call from [facility] with accepting information. Dr. Parada accepted, [facility], room 4101 bed B, call report to [facility] [phone]. Transport TBD Addendum entered by Nivia Lim RN 11/14/24 12:51: called pt's room phone, no answer, called pt's cell phone listed on face sheet. No answer. I will discuss transfer status with patient today. Original Note: Peer to peer with Dr. Ornelas ([facility]) and Dr. Wang completed. Dr. Ornelas accepted. Cyndi will call back when bed is available multiple discussion with Katelyn ancillary team, associate program manager KOLTON, and CARL Hanna. Verbal auth was given from SWATI garcia/ katelyn to Cyndi garcia/ CARLA HENRY.
--- NOTE | 2024-11-14 14:03 | PC.NURSE ---
Patient's HR was at 47 bpm at 1352. Went in her room to assess her and patient was asleep. This nurse woke her up, asked her a couple of questions, she answered them correctly and stated she felt fine but was sleeping good. Assessed her heart rate again after waking her up and talking to her and it begin to raise between [address] Silvestre to inform him and he said thank you and gave no new orders.
--- NOTE | 2024-11-14 14:10 | ESDS_ITS ---
Planned Discharge Date 11/14/24 DS: Providers Provider Date of admission: 11/06/24 22:16 Primary care physician: Trevor Suggs MD Admitting Provider: Varsha Caldwell MD Attending Provider on Admission: Srinath Sanon DO Consults: 11/07/24 03:15 Consult to Oncology Routine Comment: Consulting Provider: Duane Flowers 11/08/24 13:26 Consult to Pulmonology Routine Comment: R pleural effusion, malignancy Consulting Provider: Jorge Luis Chatman 11/09/24 13:36 Referral - Sheet Metal Assembler And Riveter Stat Service Needed for Transfer: Cardiovascular/Thoracic Surg Addl Comments:: For surgical decortication of right lung Attending Provider on DC: Dmitry Wang MD Discharging Provider: Dmitry Wang MD DS: Diagnosis Problem List Completed Was Problem List Reviewed/Reconciled?: Yes Hospital Course Hospital Course Hospital course: Reason for hospitalization: Acute hypoxic respiratory failure Summary: Mrs. Andrew is a 64-year-old female past medical significant of asthma, breast cancer s/p mastectomy 2017, thyroid cancer s/p thyroidectomy 2021 and radiation therapy, who presented to the ED on 11/06/2024 with chief complaint of shortness of breath, generalized weakness and chills for the past two weeks. Patient was admitted for acute hypoxic respiratory failure secondary to right large pleural effusion. The patient symptoms started about 2 weeks ago, and when she went to see her PCP, the patient was diagnosed with emphysema. During a follow-up visit 1 week later, symptoms persisted, so her PCP ordered a checks x-ray, which showed a large right-sided pleural effusion. The patient was advised to go to the ED for further evaluation. In the ED, the patient received a CT chest, which was noted to show a massive right-sided pleural effusion with total atelectasis of the right lung along with enlarging pulmonary nodules in the left lung consistent with progression of her metastatic disease. The patient was well aware of her pulmonary nodules in the past as she recently had a PET scan in 05/31/2024 at [facility] which showed multiple small pulmonary nodules in the lungs bilaterally that were hypermetabolic in the past and appeared to be slightly more hypermetabolic with her most recent scan. At the time, biopsy of those pulmonary nodules were not pursued. Due to the patient's large right pleural effusion, the patient underwent an emergent thoracentesis, which drained 2 L of nonbloody pleural fluid, which was noted to improve the patient's shortness of breath afterwards. The pleural fluid was noted to be straw-colored in appearance with pleural WBC 1713, total pleural protein 4.5, pleural LDH 194, and pleural glucose at 54. Given that serum LDH 127 and serum total protein 6.8, no pleural fluid was suggestive of an exudative pleural fluid. Given that the patient still had a significant right pleural effusion on chest x-ray even after the initial thoracentesis, and given the alina ent's past history of malignancies and pulmonary nodules, pulmonology was consulted in 11/08. Gun Profiler believed that this is the case was highly suggestive of a pleural effusion secondary to metastatic spread to the lungs, and recommended a repeat ultrasound-guided thoracentesis. At the time, chest tube was not pursued as the patient did not want one. On repeat thoracentesis on 11/08, 1.4 L of pleural fluid was removed, however the lung unfortunately failed to reexpand, which required emergency chest tube placement. The chest tube ultimately significantly helped with drainage of the right pleural effusion as shown on the repeat chest x-rays. On 11/09, the patient cytology from the pleural fluid analysis resulted as showing malignant cells consistent with breast carcinoma in the pleural space. After reviewing the case further, the vegetable sorter recommended transfer to a tertiary center for surgical decortication to help relieve future pleural fluid accumulation and for biopsy of the pulmonary cortical tissue for further identification of the patient's malignancy. In addition to pulmonology, oncology was also consulted on 11/06. Oncology initially ordered multiple tests, the only 1 of which that was abnormal was an elevated CA125. The patient had a CT pelvis which was performed on 03/25/2023 which showed a 16mm right adnexal cyst, which was not noted to be present on the abdomen pelvis CT done on 11/09/2024, so it is unclear if there is previous cyst finding could have been related to the malignancy. On 11/12, the patient was accepted to [facility] for surgical decortication and tissue biopsy collection/identification. At this time, the patient is stable and medically cleared to be transferred to this tertiary center, however is not yet cleared to be discharged. Hospital Diagnoses: #Massive right-sided pleural effusion with total atelectasis right lung #Status post thoracentesis 11/07/24 and 11/08/24 #Hydropneumothorax #Enlarging pulmonary nodules 2/2 #Breast carcinoma, metastatic #Asthma #Ovarian cyst vs. malignancy #Gallbladder thickening #Hx Breast cancer s/p mastectomy 2017 #Hx thyroid cancer s/p thyroidectomy 2021 #Depression Patient plan of care was discussed with the attending physician, Dr. Talita Wang, PGY2 Time Spent with Patient Time attestation: Total time spent providing and/or coordinating discharge services: Time spent: Greater than 30 minutes Exam Vital Signs Temp Pulse Resp BP Pulse Ox O2 Del Method O2 Flow Rate 97.0 F 47 L 14 110/59 L 97 Nasal Cannula 1 11/14/24 12:00 11/14/24 14:07 11/14/24 12:00 11/14/24 12:00 11/14/24 12:00 11/14/24 12:00 11/14/24 12:00 Narrative Exam General: Alert, no acute distress. Skin: Warm, dry, intact. Head: Normocephalic, atraumatic. Eye: Normal conjunctiva, PERRL. Cardiovascular: Regular rate and rhythm, no murmur, +S1/S2. Respiratory:Respirations unlabored, no crackles, no wheezing. Soft breath sounds appreciated on RLL. Gastrointestinal: Soft, nontender, non-distended. No guarding or rebound tenderness. Extremities: No edema, no cyanosis, no clubbing. Neuro: No focal deficits observed. Conversant, moving all extremities. No overt cerebellar signs/incoordination. Psychiatric: Cooperative, appropriate affect. Discharge Plan Plan Patient Disposition: Xfer Other Prescriptions/Referrals Prescriptions/Med Rec: No Action Fluticasone/Vilanterol (Breo Ellipta 100-25 Mcg INH) 1 EACH AER.POW.BA 1 ea IH QDAY Qty: 0 letrozole 2.5 mg tablet 2.5 mg PO .am sertraline 50 mg tablet 50 mg PO HS celecoxib 200 mg capsule 200 mg PO Q24H Patient Comments: TAKE 1 CAPSULE (200 MG) BY MOUTH EVERY DAY levothyroxine 75 mcg tablet 75 mcg PO .morning Patient Comments: TAKE 1 TABLET BY MOUTH EVERY DAY albuterol sulfate 90 mcg/actuation HFA aerosol inhaler 1 puff INHALATION PRN PRN (Reason: shortness of breath or wheezing) letrozole [Femara] 2.5 mg tablet 2.5 mg PO Q24H Referrals: Trevor Suggs MD [Primary Care Provider, Family Practice] Patient/Caregiver Discharge Instructions Education Materials: Thoracentesis Dc Print Language: Citizen Of [place] Stand Alone Forms: Taylor Award Info., Patient Portal Info Letter Discharge Order Discharge Orders: Discharge (Routine); Ordered 11/14/24 Ordered By: Srinath Sanon Quality Discharge Quality Measures VTE prophylaxis MD Attestestation MD Attestation Patient stable for transfer to tertiary center.
--- NOTE | 2024-11-14 17:22 | PC.NURSE ---
Spoke with SWATI Cordova from [facility] at 1553 to give report. Also gave report to transfer nurses on the flight crew.
== END 2024-11-14 18:03 | disposition short-term general hospital (02) | DRG 205 ==
LOC: SERX 16:35 → SERHOLD 11-07 05:54 → S3NX 11-07 05:54
PROVIDERS: Admitting Provider Student in an Organized Health Care Education/Training Program; Emergency Provider Emergency Medicine; PCP Family Medicine; Visit Provider Student in an Organized Health Care Education/Training Program
DX: J98.11 Atelectasis (principal); J96.01 Acute respiratory failure with hypoxia; C78.02 Secondary malignant neoplasm of left lung; J91.0 Malignant pleural effusion; J94.8 Other specified pleural conditions; Z85.3 Personal history of malignant neoplasm of breast; Z90.13 Acquired absence of bilateral breasts and nipples; F32.A Depression, unspecified; J43.9 Emphysema, unspecified; Z85.850 Personal history of malignant neoplasm of thyroid; J45.909 Unspecified asthma, uncomplicated; Z79.890 Hormone replacement therapy; Z79.899 Other long term (current) drug therapy
CPT/HCPCS: 36415; 71045; 71250; 71275; 74177; 80048; 80053; 81001; 82150; 82378; 82465; 82945; 83605; 83615; 83735; 83880; 84100; 84145; 84157; 84484; 85025; 85610; 85730; 86171; 86300; 86301; 86304; 86800; 87040; 87070; 87075; 87205; 87400; 87811; 89051; 93005; 93225; 94640; 99284; A4649; A9270; J0696; J1642; J1644; J2270; J3010; J3475; J3490; Q9967

== ENCOUNTER 2024-11-17 18:17 | Inpatient (IN) | payer OTHER, SELFPAY ==
[2024-11-17 18:36] VITALS: PULSE 46; BMI 32.1
--- NOTE | 2024-11-17 18:45 | PC.NURSE ---
Pt to room from [facility] 1820. Report received from EMS, no events to report from transport. Arrival reported to Dr Silvetsre. Pt on 3L NC Sp02 WNL, chest tube to right chest present, clamped. Dressing to Right chest CDI. Respiration equal and unlabored. Pt is happy to return and has no pain at this time. Tele box placed and noted initial rhythm 46 sinus navdeep. Reported patient's rhythm to Dr Silvestre. Per MD, team will work on further orders. Written med orders faxed to pharmacy. No code status, chest tube suction order, diet order in place. Hospitalist team aware. Resident Dr Forman at bedside greeting pt. Aware of pending orders and needed orders. Pt requesting [place] for pain control over the ordered Morphine, however no pain at this time. All of this reported to Juliann LONGORIA who was at bedside with Dr Forman.
[2024-11-17 19:02] VITALS: BP 107/76; PULSE 56; RESP 20; TEMP 36.1; O2SAT 96
--- NOTE | 2024-11-17 19:25 | ESHP_ITS ---
Documentation for date of: 11/17/24 [facility] History of Present Illness Chief complaint: Right pleural effusion History of present illness: Mrs. Andrew is a 64-year-old female past medical significant of asthma, breast cancer s/p mastectomy 2017, thyroid cancer s/p thyroidectomy 2021 and radiation therapy, who presented to the ED on 11/06/2024 with chief complaint of shortness of breath, generalized weakness and chills for the past two weeks. Patient was admitted for acute hypoxic respiratory failure secondary to right large pleural effusion, transferred out to [facility] in [place] for surgical decortication and tissue biopsy collection/identification, and then transferred back to [facility] on 11/17. The patient's initial symptoms started about 2 weeks before admission on 11/06, and when she went to her PCP, the patient was diagnosed with emphysema. After follow-up visit 1 week before admission on 11/06, the patient had a chest x-ray, which showed a massive right pleural effusion, which prompted her PCP to advise her to seek care at [facility]. Patient was admitted on 11/06, and after multiple thoracenteses and placement of a chest tube, the patient was found to have an exudative pleural effusion likely secondary to breast carcinoma spread to the lungs. Under advice of the in-house button cutting machine operator, the patient was transferred to a facility of higher level care for surgical decortication and tissue biopsy collection/identification. The patient was transferred to [facility] in [place] on 11/14, however according to the patient, no surgical procedure was done while she was at that facility. The patient is not exactly sure why, however states that it may have been because there was cancer in her lungs, which is the reason why she was transferred in the first place. Additionally, the patient notes that after a few days, her chest tube stopped draining, but a CT chest scan done before she left [facility] continue to show a right pleural effusion. Past Surgical History: thyroidectomy and bilateral neck dissection 10/06/[address] Chandler Crouch in [place]. Breast cancer status post double mastectomy early stage being followed by Dr. 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 Skin: Warm, dry, intact. Head: Normocephalic, atraumatic. Eye: Normal conjunctiva, PERRL. Cardiovascular: Regular rate and rhythm, no murmur, +S1/S2. Respiratory: Respirations unlabored, no crackles, no wheezing. No breath sounds appreciated on RLL. Gastrointestinal: Soft, nontender, non-distended. No guarding or rebound tenderness. Extremities: No edema, no cyanosis, no clubbing. Neuro: No focal deficits observed. Conversant, moving all extremities. No overt cerebellar signs/incoordination. Psychiatric: Cooperative, appropriate affect. Results: Labs 11/18/24 05:43 11/18/24 05:43 Quality Measures Quality Measures VTE prophylaxis Advance care planning discussed with:: patient Medications Home Medications and Allergies Home Medications ?Medication ?Instructions ?Recorded ?Confirmed ?Type Fluticasone/Vilanterol (Breo 1 ea IH QDAY Asthma #0 ea 02/02/17 11/17/24 History Ellipta 100-25 Mcg INH) letrozole 2.5 mg tablet 2.5 mg PO .am 01/21/2111/17 History sertraline 50 mg tablet 50 mg PO HS 01/21/21 5 History albuterol sulfate 90 mcg/actuation 1 puff inhalation P RN PRN 11/07/24 11/17/24 History aerosol inhaler shortness of breath or wheez ing celecoxib 200 mg capsule 200 mg PO Q24H 11/07/2410/23 History letrozole 2.5 mg tablet (Femara) 2.5 mg PO Q24H 11/17/24 History levothyroxine 75 mcg tablet 75 mcg PO .morning 5 11/17/24 History Allergies Allergy/AdvReac Type Severity Reaction Status Date / Time Sulfa (Sulfonamide Allergy Severe Rash Verified 11/17/24 22:45 Antibiotics) tramadol Allergy Severe RASH, SOB Verified 11/17/24 22:44 PAPER TAPE Allergy Mild ICHY, Uncoded 11/17/24 22:44 LOCALIZED RASH Visit Medications Acetaminophen (Acetaminophen 325 Mg Tablet) 650 mg PO Q6H PRN PRN Reason: Fever >101.5 pain 1-4 Stop: 12/17/24 19:19 Hydrocodone Bitart/Acetaminophen (Hydrocodone/Apap 5/325 Tablet) 1 tab PO Q4HR PRN PRN Reason: Pain Scale 5-10 Stop: 11/22/24 19:19 Albuterol/Ipratropium (Albuterol/Ipratropium (Duoneb) Rt Zo 3 Ml Nebu) 3 ml INH Q6HRRT CHAPARRO Stop: 12/18/24 00:59 Heparin Sodium (Porcine) (Heparin Sod Inj 5000 Unit/Ml Vial) 5,000 unit SC Q12H CHAPARRO Stop: 12/01/24 19:29 Levothyroxine Sodium (Levothyroxine Sodium 25 Mcg Tablet) 75 mcg PO ACBR CHAPARRO Stop: 12/18/24 05:59 Sertraline HCl (Sertraline Hcl 25 Mg Tablet) 50 mg PO HS CHAPARRO Stop: 12/17/24 20:59 Assessment & Plan Plan Mrs. Andrew is a 64-year-old female past medical significant of asthma, breast cancer s/p mastectomy 2017, thyroid cancer s/p thyroidectomy 2021 and radiation therapy, who presented to the ED on 11/06/2024 with chief complaint of shortness of breath, generalized weakness and chills for the past two weeks. Patient was admitted for acute hypoxic respiratory failure secondary to right large pleural effusion, transferred out to [facility] in [place] for surgical decortication and tissue biopsy collection/identification, and then transferred back to [facility] on 11/17. #Massive right-sided pleural effusion with total atelectasis right lung - improved, chest tube in place #Status post thoracentesis 11/07/24 and 11/08/24 #Hydropneumothorax -improved #Enlarging pulmonary nodules #Asthma Chest CT massive right pleural effusion with total atelectasis right lung, enlarging pulmonary nodules left lung consistent with progression of metastatic disease compared with July 10, 2024 imaging. CXR showed total opacification right hemithorax. Chest CTA negative for pulmonary artery emboli, massive right pleural effusion with total collapse of the right lung Thoracentesis 11/06 drained 2 L nonbloody, cloudy yellow pleural fluid. Right pleural effusion likely secondary to mets to lungs. Repeat CXR 11/08 continues to show massive right pleural effusion; 1400cc removed at which point chest tube was placed due to pneumothorax Pleural fluids analysis, collected, supports exudative effusion given positive for one of Light's criteria Carcinoembryonic antigen ordered, resulted as 1.5 CA 15?13 antigen ordered, resulted as 2.3 CA 125 antigen ordered, resulted as 140, CA 19?19 antigen ordered, resulted as 4 CT Abd/P w/ con shows: right chest tube with hydropneumothorax on the right - DuoNebs q6h - Supplemental O2, titrate as tolerated to maintain SpO2 >93% - Pain control with Vancleve 5 every 4 hours as needed - Pleural fluid cytology ordered, showed malignant cells, likely from breast cancer - Thyroglobulin ordered, pending - Oncology consulted, appreciate recommendations - Office Machine Repair Shop Supervisor spoke with patient who is agreeable to transfer for surgical decortication as the patient has a trapped lung; pending transfer on 11/12, transferred back to [facility] on 11/17 without surgical decortication performed - Will discuss with interventional radiology regarding possible biopsy - Continue chest tube with possible plans for pigtail vs Pleurx chest tube placement #Ovarian cyst vs. malignancy Tumor markers were ordered as per Radiology oncology recommendations CA 125 was elevated, likely secondary to patient's history of 16mm right adnexal cyst seen on CT Pelvis on 03/2023 Rad Onc is recommended repeating CT Abd/P with contrast to visualize other/primary source of malignancy CT Abd/P w/ con does not show any concerning ovarian mass Plan: Follow-up with Rad Onc recommendations #Gallbladder thickening As seen on CT Abd/P w/con Patient's LFTs are unremarkable Plan: Monitor LFT or clinical signs of GB disease #Hx Breast cancer s/p mastectomy 2017 - Follows oncology outpatient - hormone therapy letrozole 2.5mg #Hx thyroid cancer s/p thyroidectomy 2021 - Follows with oncology Dr. Flowers, who has been consulted - Continue Home levothyroxine 75mg ACBR #Depression Patient diagnosed s/p breast cancer. - Continue home sertraline 50 mg Health Maintenance: DVT Prophylaxis: Heparin GI Prophylaxis: N/A Bowel: N/A Diet: Regular Lines: Peripheral IV Code Status: FULL Patient plan of care was discussed with the attending physician, Dr. Talita Forman, PGY-1 Attending Provider Attestation/Addendum I have discussed and was present for the essential components of the history, physical examination, diagnosis, and treatment plan with the resident. I agree with the patient's care as documented by the resident and amended herein by me. Andrzej Sanon, DO. Although this document has been carefully reviewed, there may still be some phonetic and other typographical errors. These errors are purely grammatical due to imperfections in the software program and should not be construed in any way to compromise the substance of the patient's medical care during this visit.
[2024-11-17 20:00] VITALS: BP 127/73; PULSE 52; PULSE 66; RESP 17; TEMP 36.2; O2SAT 97
[2024-11-17] MEDS: HYDROcodone/APAP 5/325 TABLET 1 TAB PO (20:26)
[2024-11-17] MEDS: SERTRALINE HCL 25 MG TABLET 50 MG PO (22:38)
[2024-11-17] MEDS: HEPARIN SOD INJ 5000 UNIT/ML VIAL SC (22:41)
[2024-11-17 22:54] VITALS: PULSE 50; O2SAT 99
[2024-11-18] VITALS (11 sets, daily range): BP systolic 94–103; BP diastolic 44–61; PULSE 45–67; RESP 14–19; TEMP 36.1–36.2; O2SAT 95–100
[2024-11-18] MEDS: ALBUTEROL/IPRATROPIUM (Duoneb) RT SOL 3 ML NEBU INH ×4 (00:19→19:09)
[2024-11-18] MEDS: HYDROcodone/APAP 5/325 TABLET 1 TAB PO ×3 (05:12→20:11)
[2024-11-18] MEDS: LEVOTHYROXINE SODIUM 25 MCG TABLET 75 MCG PO (05:12)
--- NOTE | 2024-11-18 06:00 | PC.NURSE ---
redness to left antecubital arm- Applied skin repair cream. Scratch to left hand and wound from previous iv site- Cleansed with wound cleanser.
[2024-11-18 06:18] LABS: Basophils # (Auto) 0.1 Thou/mm3 (0.0-0.2); Basophils % (Auto) 1 % (0-2.5); Eosinophils # (Auto) 0.8 Thou/mm3 (0.0-0.5); Eosinophils % (Auto) 9 % (0-10); Hematocrit 42.4 % (36.0-46.0); Hemoglobin 13.3 g/dL (12.0-16.0); Immature Granulocytes Auto 0.04 Thou/mm3 (0.00-0.00); Lymphocytes # (Auto) 1.3 Thou/mm3 (1.0-4.8); Lymphocytes % (Auto) 15 % (10-50); Mean Corpuscular HGB Conc 31.4 g/dl (31.0-37.0); Mean Corpuscular Hemoglobin 29.0 pg (25.0-35.0); Mean Corpuscular Volume 92 fL (80-100); Monocytes # (Auto) 0.8 Thou/mm3 (0.0-0.8); Monocytes % (Auto) 9 % (0-12); Neutrophils # (Auto) 5.8 Thou/mm3 (1.8-7.7); Neutrophils % (Auto) 66 % (37-80); Nucleated Red Blood Cell # 0.00 Thou/mm3 (0.00-0.00); Nucleated Red Blood Cell % 0 /100 WBC (0); Platelet Count 487 Thou/mm3 (140-440); RDW Standard Deviation 46.5 fL (36.4-46.3); Red Blood Count 4.59 Miln/mm3 (4.00-5.20); White Blood Count 8.8 Thou/mm3 (3.6-11.0)
[2024-11-18 06:26] LABS: INR 1.0 (0.9-1.3); Partial Thromboplastin Time 26.7 Seconds (22.0-36.0); Prothrombin Time 10.9 Seconds (9.0-12.2)
[2024-11-18 06:37] LABS: Alanine Aminotransferase 13 U/L (10-49); Albumin, Serum 3.8 gm/dL (3.4-4.8); Albumin/Globulin Ratio 1.5 (1.2-2.2); Alkaline Phosphatase 78 U/L (46-116); Anion Gap 9 (7-16); Aspartate Amino Transferase 17 U/L (0-34); BUN/Creatinine Ratio 10 Ratio (12-20); Bilirubin,Total 0.3 mg/dL (0.3-1.2); Blood Urea Nitrogen 6 mg/dL (9-23); Calcium 9.0 mg/dL (8.3-10.6); Calcium (Corrected) 9.2 mg/dL (8.5-10.1); Carbon Dioxide 26.5 mMol/L (20.0-31.0); Chloride 105 mMol/L (98-107); Creatinine (Component) 0.6 mg/dL (0.6-1.3); Estimated Creatinine Clearance 90.1 mL/min (>60); Globulin 2.5 gm/dL (2.3-3.5); Glucose 81 mg/dL (74-106); Magnesium 2.2 mg/dL (1.6-2.6); Osmolality,Calculated 276 (275-295); Phosphorous 3.7 mg/dL (2.4-5.1); Potassium 4.0 mMol/L (3.4-5.1); Sodium 140 mMol/L (136-145); Total Protein 6.3 gm/dL (5.7-8.2); eGFR > 60 See Note
[2024-11-18] MEDS: HEPARIN SOD INJ 5000 UNIT/ML VIAL SC ×2 (08:40→20:11)
--- NOTE | 2024-11-18 09:00 | EKG_ITS ---
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
[2024-11-18] MEDS: LETROZOLE 2.5 MG PO (09:31)
[2024-11-18] MEDS: BALSAM PERU/CASTOR OIL (Venelex) 60 GM TUBE TOP ×2 (09:41→20:45)
--- NOTE | 2024-11-18 11:59 | ESPR_ITS ---
Documentation for date of: 11/18/24 Subjective Subjective Interval history: Overnight events: No acute events overnight. Patient was seen and examined at bedside. AM vitals and labs reviewed. Patient continues to appear well. She states that and no longer hurts to breathe now. Minimal output from chest tube. Wound care did notice cocci pressure injury stage III. Will follow-up with pathology tomorrow regarding ER/AZ and HER2 status of neoplastic cell cytology from pleural fluid. Will follow-up with oncology, Dr. Flowers, regarding further plans for the patient, including if the patient should get biopsy of her lung masses. Will most likely obtain PleurX chest tube placement tomorrow if staff is available. Incentive spirometry ordered, physical therapy ordered, and wound care was ordered. Review of systems otherwise negative except for what is mentioned above. Exam Vital Signs Temp Pulse Resp BP Pulse Ox O2 Del Method O2 Flow Rate 97.0 F 53 L 14 103/61 96 Nasal Cannula 2 11/18/24 07:58 11/18/24 08:00 11/18/24 07:58 11/18/24 07:58 11/18/24 07:58 11/18/24 07:58 11/18/24 07:58 Narrative Exam Physical Exam: General: Alert, no acute distress. Skin: Warm, dry, intact. Head: Normocephalic, atraumatic. Eye: Normal conjunctiva, PERRL. Cardiovascular: Regular rate and rhythm, no murmur, +S1/S2. Respiratory: Respirations unlabored, no crackles, no wheezing. Very minimal breath sounds appreciated on RLL. Gastrointestinal: Soft, nontender, non-distended. No guarding or rebound tenderness. Extremities: No edema, no cyanosis, no clubbing. Neuro: No focal deficits observed. Conversant, moving all extremities. No overt cerebellar signs/incoordination. Psychiatric: Cooperative, appropriate affect. Objective Labs 11/18/24 05:43 11/18/24 05:43 Labs: Laboratory Results - last 24 hr 11/18/24 05:43 WBC 8.8 RBC 4.59 Hgb 13.3 Hct 42.4 MCV 92 MCH 29.0 MCHC 31.4 RDW Std Deviation 46.5 H Plt Count 487 H D Neut % (Auto) 66 Lymph % (Auto) 15 [place] % (Auto) 9 Eos % (Auto) 9 Baso % (Auto) 1 Neut # (Auto) 5.8 Lymph # (Auto) 1.3 [place] # (Auto) 0.8 Eos # (Auto) 0.8 H Baso # (Auto) 0.1 Immature Gran # (Auto) 0.04 H Absolute Nucleated RBC 0.00 Immature Gran % 1 H Nucleated RBC % 0 PT 10.9 INR 1.0 APTT 26.7 Sodium 140 Potassium 4.0 Chloride 105 Carbon Dioxide 26.5 Anion Gap 9 BUN 6 L Creatinine 0.6 Estim Creat Clear Calc 90.1 eGFR > 60 BUN/Creatinine Ratio 10 L Glucose 81 Calculated Osmolality 276 Calcium 9.0 Corrected Calcium 9.2 Phosphorus 3.7 Magnesium 2.2 Total Bilirubin 0.3 AST 17 ALT 13 Alkaline Phosphatase 78 Total Protein 6.3 Albumin 3.8 Globulin 2.5 Albumin/Globulin Ratio 1.5 Quality Measures Quality Measures VTE prophylaxis Advance care planning discussed with:: patient and child Assessment & Plan Assessment Current Active Medications: Generic Name Dose Route Start Last Admin Trade Name Freq PRN Reason Stop Dose Admin Acetaminophen 650 mg 11/17/24 19:20 Acetaminophen 325 Mg Tablet PO 12/17/24 19:19 Q6H PRN Fever >101.5 pain 1-4 Hydrocodone Bitart/Acetaminophen 1 tab 11/17/24 19:20 11/18/24 05:12 Hydrocodone/Apap 5/325 Tablet PO 11/22/24 19:19 1 tab Q4HR PRN Administration Pain Scale 5-10 Albuterol/Ipratropium 3 ml 11/18/24 01:00 11/18/24 07:46 Albuterol/Ipratropium (Duoneb) Rt Zo 3 Ml Nebu INH 12/18/24 00:59 3 ml Q6HRRT CHAPARRO Administration Albuterol/Ipratropium 3 ml 11/18/24 08:01 Albuterol/Ipratropium (Duoneb) Rt Zo 3 Ml Nebu INH 12/18/24 08:00 Q2HR PRN SHORTNESS OF BREATH OR WHEEZE [place]/[employer] 0 gm 11/18/24 09:00 11/18/24 09:41 [place]/[employer]an [employer] (Venelex) 60 Gm Tube TOP 12/18/24 08:59 3 gm BID CHAPARRO Administration Heparin Sodium (Porcine) 5,000 unit 11/17/24 21:00 09/28/25 08:40 Heparin Sod Inj 5000 Unit/Ml Vial SC 12/01/24 20:59 5,000 unit Q12H CHAPARRO Administration Letrozole 2.5 mg 11/18/24 09:00 11/18/24 09:31 Letrozole 2.5 Mg Tablet (Non-Formulary) PO 12/18/24 08:59 2.5 mg QDAY HCAPARRO Administration Levothyroxine Sodium 75 mcg 11/18/24 06:00 11/18/24 05:12 Levothyroxine Sodium 25 Mcg Tablet PO 12/18/24 05:59 75 mcg ACBR CHAPARRO Administration Sertraline HCl 50 mg 11/17/24 21:00 11/17/24 22:38 Sertraline Hcl 25 Mg Tablet PO 12/17/24 20:59 50 mg HS CHAPARRO Administration Plan Mrs. Andrew is a 64-year-old female past medical significant of asthma, breast cancer s/p mastectomy 2017, thyroid cancer s/p thyroidectomy 2021 and radiation therapy, who presented to the ED on 11/06/2024 with chief complaint of shortness of breath, generalized weakness and chills for the past two weeks. Patient was admitted for acute hypoxic respiratory failure secondary to right large pleural effusion, transferred out to [facility] in [place] for surgical decortication and tissue biopsy collection/identification, and then transferred back to [facility] on 11/17. #Massive right-sided pleural effusion with total atelectasis right lung #Status post thoracentesis 11/07/24 and 11/08/24 #Malignant breast carcinoma metastasis to pleural space #Hydropneumothorax #Enlarging pulmonary nodules #Asthma Chest CT massive right pleural effusion with total atelectasis right lung, enlarging pulmonary nodules left lung consistent with progression of metastatic disease compared with July 10, 2024 imaging. CXR showed total opacification right hemithorax. Chest CTA negative for pulmonary artery emboli, massive right pleural effusion with total collapse of the right lung Thoracentesis 11/06 drained 2 L nonbloody, cloudy yellow pleural fluid. Right pleural effusion likely secondary to mets to lungs. Repeat CXR 11/08 continues to show massive right pleural effusion; 1400cc removed at which point chest tube was placed due to pneumothorax Pleural fluids analysis, collected, supports exudative effusion given positive for one of Light's criteria Pleural fluid cytology shows malignant breast carcinoma involving pleural space Carcinoembryonic antigen ordered, resulted as 1.5 CA 15?13 antigen ordered, resulted as 2.3 CA 125 antigen ordered, resulted as 140, CA 19?19 antigen ordered, resulted as 4 CT Abd/P w/ con shows: right chest tube with hydropneumothorax on the right - DuoNebs q6h - Supplemental O2, titrate as tolerated to maintain SpO2 >93% - Incentive spirometry - Pain control with [place] 5 every 4 hours as needed - Pleural fluid cytology ordered, showed malignant cells, likely from breast cancer - Thyroglobulin ordered, pending - Oncology consulted, appreciate recommendations - Home Security Alarm Installer spoke with patient who is agreeable to transfer for surgical decortication as the patient has a trapped lung; pending transfer on 11/12, transferred back to [facility] on 11/17 without surgical decortication performed - Will discuss with oncology regarding need for lung mass biopsy - Continue chest tube with possible plans for pigtail vs Pleurx chest tube placement - Will follow up with pathology regarding ER/AZ and HER2 status of malignant breast carcinoma cells from pleural fluid #Pressure injury, coccyx, stage III Patient reports frequent back pain and it was noted that the patient had a possible pressure injury and her coccyx area. Per wound care nurse, the wound staging is stage III without any drainage or order. Plan: Wound care referral ordered Continue to monitor #Ovarian cyst vs. malignancy Tumor markers were ordered as per Radiology oncology recommendations CA 125 was elevated, likely secondary to patient's history of 16mm right adnexal cyst seen on CT Pelvis on 03/2023 Rad Onc is recommended repeating CT Abd/P with contrast to visualize other/primary source of malignancy CT Abd/P w/ con does not show any concerning ovarian mass Plan: Follow-up with Rad Onc recommendations #Gallbladder thickening As seen on CT Abd/P w/con Patient's LFTs are unremarkable Plan: Monitor LFT or clinical signs of GB disease #Hx Breast cancer s/p mastectomy 2017 - Follows oncology outpatient - hormone therapy letrozole 2.5mg #Hx thyroid cancer s/p thyroidectomy 2021 - Follows with oncology Dr. Flowers, who has been consulted - Continue Home levothyroxine 75mg ACBR #Depression Patient diagnosed s/p breast cancer. - Continue home sertraline 50 mg Health Maintenance: DVT Prophylaxis: Heparin GI Prophylaxis: N/A Bowel: N/A Diet: Regular Lines: Peripheral IV Code Status: FULL Patient plan of care was discussed with the attending physician, Dr. Talita Forman, PGY-1 Attending Provider Attestation/Addendum I have discussed and was present for the essential components of the history, physical examination, diagnosis, and treatment plan with the resident. I agree with the patient's care as documented by the resident and amended herein by me. Andrzej Sanon DO. Although this document has been carefully reviewed, there may still be some phonetic and other typographical errors. These errors are purely grammatical due to imperfections in the software program and should not be construed in any way to compromise the substance of the patient's medical care during this visit.
--- NOTE | 2024-11-18 11:59 | PC.SS ---
Addendum entered by Eneida Yoo 11/18/24 16:40: Rounding note: Pleurix cath 11/19. Discharging home in 2 days. Original Note: 64YO female, reason for visit: SOB, PLEURAL EFFUSION SS met with patient at bedside to complete initial assessment. Role and purpose of today?s contact was explained. Patient confirmed her demographic information. Patient identified her spouse Matthias Andrew [phone] as her primary medical surrogate decision maker. Patient reported she is independent with ADL completion and ambulation as well. PHARMACY: [facility]. PCP: Dr. Suggs, last appt. was 11/06/24. Patient is also followed [facility] Dr. Gentile[facility], and Dr. Bass Hematology, Oncology. Discharge plan discussed with patient and she is requesting to return home when medically clear. Next of kin: Spouse Matthias Andrew [phone] Discharge plan: Home, spouse to transport.
--- NOTE | 2024-11-18 16:00 | PD.ONCCONS ---
HPI Data of Consult Requesting Physician: Varsha Caldwell MD Primary Care Provider: Physician No Primary/Family Consult Narrative Reason for consult: Patient with lung met right pleural effusion History of present illness: 64-year-old lady who underwent bilateral mastectomy for right breast CA 2017 and thyroidectomy 2021 followed by radiation therapy in terms of radioiodine and external beam. The right breast cancer was thought to be early-stage and received estrogen modulators for a few years and no chemotherapy. There were lung lesions that were suspected even as early as 3 years ago but initial biopsy was negative. The fact that they were getting larger, arrangement was made to get it biopsied [facility] when she was admitted with weakness right pleural effusion with shortness of breath and total collapse of the right lung. Thoracentesis performed on 11/08/2024 withdrawing 1400 cc with malignant cells present consistent with breast CA involving pleural space. Chest tube was placed. Patient was transferred to [facility] in [place] for possible decortication procedure but this was not followed through and patient has now returned. Patient appears to be comfortable and minimal output from chest tube noted. cc:: cc: Varsha Caldwell MD Past Medical History Family History OTHER FAMILY HX: No family history of cancer Past Medical History Comments PMH COMMENT: Early-stage right breast CA treated with bilateral mastectomy 2017 and estrogen modulating drugs for 5 years followed by oncologist in [place]. Stage II thyroid cancer thyroidectomy radioiodine external beam asthma Meds Home Medications and Allergies Home Medications ?Medication ?Instructions ?Recorded ?Confirmed ?Type Fluticasone/Vilanterol (Breo 1 ea IH QDAY Asthma #0 ea 02/02/17 11/17/24 History Ellipta 100-25 Mcg INH) letrozole 2.5 mg tablet 2.5 mg PO .am 01/21/21 11/17/24 History sertraline 50 mg tablet 50 mg PO HS 01/21/21 11/17/24 History albuterol sulfate 90 mcg/actuation 1 puff inhalation PRN PRN 11/07/24 11/17/24 History aerosol inhaler shortness of breath or wheezing celecoxib 200 mg capsule 200 mg PO Q24H 11/07/24 11/17/24 History letrozole 2.5 mg tablet (Femara) 2.5 mg PO Q24H 11/07/24 11/17/24 History levothyroxine 75 mcg tablet 75 mcg PO .morning 11/07/24 11/17/24 History Allergies Allergy/AdvReac Type Severity Reaction Status Date / Time Sulfa (Sulfonamide Allergy Severe Rash Verified 11/17/24 22:45 Antibiotics) tramadol Allergy Severe RASH, SOB Verified 11/17/24 22:44 PAPER TAPE Allergy Mild ICHY, Uncoded 11/17/24 22:44 LOCALIZED RASH Exam Vital Signs Temp Pulse Resp BP Pulse Ox O2 Del Method O2 Flow Rate 97.2 F 48 L 18 95/55 L 98 Nasal Cannula 3 11/18/24 12:00 11/18/24 13:10 11/18/24 13:10 11/18/24 12:00 11/18/24 13:10 11/18/24 12:00 11/18/24 13:10 Narrative Exam Appears comfortable this p.m. with no breathing difficulties. Results Labs 11/18/24 05:43 11/18/24 05:43 Labs: Short CBC 11/18/24 Range/Units 05:43 WBC 8.8 (3.6-11.0) Thou/mm3 Hgb 13.3 (12.0-16.0) g/dL Hct 42.4 (36.0-46.0) % Plt Count 487 H D (140-440) Thou/mm3 BMP 11/18/24 05:43 Sodium 140 Potassium 4.0 Chloride 105 Carbon Dioxide 26.5 BUN 6 L Creatinine 0.6 Glucose 81 Calcium 9.0 Liver Function 11/18/24 Range/Units 05:43 Total Bilirubin 0.3 (0.3-1.2) mg/dL AST 17 (0-34) U/L ALT 13 (10-49) U/L Alkaline Phosphatase 78 (46-116) U/L Albumin 3.8 (3.4-4.8) gm/dL Assessment and Plan Additional Assessment & Plan Additional Plan: 1. History of early-stage right breast CA receptor positive treated with bilateral mastectomy 2017 and estrogen modulator for 5 years. 2. Stage II papillary follicular thyroid cancer treated with thyroidectomy 2021 followed by radioiodine and external beam radiation. 3. Right pleural effusion with thoracentesis showing cytology suggestive of breast cancer. 4. Decortication procedure planned but reportedly abandoned in [place]. 5. I believe patient can be discharged soon with PleurX catheter replacing the chest tube. 6. Further oncological testing can be done as outpatient. Thank you for allowing me to evaluate this patient again.
[2024-11-18] MEDS: SERTRALINE HCL 25 MG TABLET 50 MG PO (20:11)
[2024-11-19] VITALS (12 sets, daily range): BP systolic 103–117; BP diastolic 45–73; PULSE 47–67; RESP 14–94; TEMP 36.1–36.9; O2SAT 91–100
[2024-11-19] MEDS: ALBUTEROL/IPRATROPIUM (Duoneb) RT SOL 3 ML NEBU INH ×4 (00:15→19:21)
[2024-11-19] MEDS: HYDROcodone/APAP 5/325 TABLET 1 TAB PO ×4 (03:37→22:24)
[2024-11-19] MEDS: LEVOTHYROXINE SODIUM 25 MCG TABLET 75 MCG PO (06:05)
[2024-11-19] MEDS: HEPARIN SOD INJ 5000 UNIT/ML VIAL SC ×2 (08:35→20:32)
[2024-11-19] MEDS: LETROZOLE 2.5 MG PO (08:37)
--- NOTE | 2024-11-19 09:22 | PC.SS ---
Follow up note: Pt is transfer back. Waiting pleurx chest tube. Pt will return home upon dc.
[2024-11-19] MEDS: BALSAM PERU/CASTOR OIL (Venelex) 60 GM TUBE TOP ×2 (09:41→21:30)
--- NOTE | 2024-11-19 09:48 | XR_ITS ---
Examination: AP chest single view Technique one AP portable upright chest single view Date and time: November 10, 0955 hours, comparison 11/12/2024 INDICATIONS: History right pleural fluid, post chest tube placement for pneumothorax FINDINGS: Right chest tube satisfactory position Mild to moderate right pleural fluid Pneumonia diffusely in the right lung Normal heart size IMPRESSION: Right chest tube satisfactory position Mild to moderate right pleural fluid, consider ultrasound right hemithorax follow-up
--- NOTE | 2024-11-19 10:10 | CHAP ---
Patient was visited by the Spiritual Care Volunteer who prayed for them silently outside room. (Volunteer was in the hospital from 09:10-10:10)
--- NOTE | 2024-11-19 11:38 | ESPR_ITS ---
<Statement entered by Dmitry Wang MD - 11/20/24 17:09> I have personally seen and examined the patient, agree with residents assessment and plan Patient plan of care was discussed with the attending physician, Dr. Talita Wang, PGY2 Documentation for date of: 11/19/24 Subjective Subjective Interval history: Overnight events: No acute events overnight. Patient was seen and examined at bedside. AM vitals and labs reviewed. Patient continues to do well. Chest tube continues to have little to no drainage. Will order morning labs for tomorrow. PleurX catheter placement held given possible loculation. PT evaluation recommended outpatient PT services. Will discuss possibility of outpatient thoracenteses versus PleurX catheter placement tomorrow. CXR shows mild to moderate R pleural fluid, ultrasound of lungs shows moderate right pleural effusion and minimal left pleural effusion. Review of systems otherwise negative except for what is mentioned above. Exam Vital Signs Temp Pulse Resp BP Pulse Ox O2 Del Method O2 Flow Rate 97.6 F 54 L 18 103/62 91 L Room Air 2 11/19/24 11:20 11/19/24 11:20 11/19/24 11:20 11/19/24 11:20 11/19/24 11:20 11/19/24 11:20 11/19/24 07:24 Narrative Exam Physical Exam: General: Alert, no acute distress. Skin: Warm, dry, intact. Head: Normocephalic, atraumatic. Eye: Normal conjunctiva, PERRL. Cardiovascular: Regular rate and rhythm, no murmur, +S1/S2. Respiratory: Respirations unlabored, no crackles, no wheezing. Very minimal breath sounds appreciated on RLL. Gastrointestinal: Soft, nontender, non-distended. No guarding or rebound tenderness. Extremities: No edema, no cyanosis, no clubbing. Neuro: No focal deficits observed. Conversant, moving all extremities. No overt cerebellar signs/incoordination. Psychiatric: Cooperative, appropriate affect. Objective Labs 11/20/24 12:13 11/20/24 04:30 Quality Measures Quality Measures VTE prophylaxis Advance care planning discussed with:: patient and child Assessment & Plan Assessment Current Active Medications: Generic Name Dose Route Start Last Admin Trade Name Freq PRN Reason Stop Dose Admin Acetaminophen 650 mg 11/17/24 19:20 Acetaminophen 325 Mg Tablet PO 12/17/24 19:19 Q6H PRN Fever >101.5 pain 1-4 Hydrocodone Bitart/Acetaminophen 1 tab 11/17/24 19:20 11/19/24 08:37 Hydrocodone/Apap 5/325 Tablet PO 11/22/24 19:19 1 tab Q4HR PRN Administration Pain Scale 5-10 Albuterol/Ipratropium 3 ml 11/18/24 01:00 11/19/24 06:07 Albuterol/Ipratropium (Duoneb) Rt Zo 3 Ml Nebu INH 12/18/24 00:59 3 ml Q6HRRT CHAPARRO Administration Albuterol/Ipratropium 3 ml 11/18/24 08:01 Albuterol/Ipratropium (Duoneb) Rt Zo 3 Ml Nebu INH 12/18/24 08:00 Q2HR PRN SHORTNESS OF BREATH OR WHEEZE Balsam [place] Oil 0 gm 11/18/24 09:00 11/19/24 09:41 Balsam Xiomy/[place] Oil (Venelex) 60 Gm Tube TOP 12/18/24 08:59 1 applicatio BID CHAPARRO Administration Heparin Sodium (Porcine) 5,000 unit 11/17/24 21:00 11/19/24 08:35 Heparin Sod Inj 5000 Unit/Ml Vial SC 12/01/24 20:59 5,000 unit Q12H CHAPARRO Administration Letrozole 2.5 mg 11/18/24 09:00 11/19/24 08:37 Letrozole 2.5 Mg Tablet (Non-Formulary) PO 12/18/24 08:59 2.5 mg QDAY CHAPARRO Administration Levothyroxine Sodium 75 mcg 11/18/24 06:00 11/19/24 06:05 Levothyroxine Sodium 25 Mcg Tablet PO 12/18/24 05:59 75 mcg ACBR CHAPARRO Administration Sertraline HCl 50 mg 11/17/24 21:00 11/18/24 20:11 Sertraline Hcl 25 Mg Tablet PO 12/17/24 20:59 50 mg HS CHAPARRO Administration Plan Mrs. Andrew is a 64-year-old female past medical significant of asthma, breast cancer s/p mastectomy 2017, thyroid cancer s/p thyroidectomy 2021 and radiation therapy, who presented to the ED on 11/06/2024 with chief complaint of shortness of breath, generalized weakness and chills for the past two weeks. Patient was admitted for acute hypoxic respiratory failure secondary to right large pleural effusion, transferred out to [facility] in [place] for surgical decortication and tissue biopsy collection/identification, and then transferred back to [facility] on 11/17. #Massive right-sided pleural effusion with total atelectasis right lung #Status post thoracentesis 11/07/24 and 11/08/24 #Malignant breast carcinoma metastasis to pleural space #Hydropneumothorax #Enlarging pulmonary nodules #Asthma Chest CT massive right pleural effusion with total atelectasis right lung, enlarging pulmonary nodules left lung consistent with progression of metastatic disease compared with July 10, 2024 imaging. CXR showed total opacification right hemithorax. Chest CTA negative for pulmonary artery emboli, massive right pleural effusion with total collapse of the right lung Thoracentesis 11/06 drained 2 L nonbloody, cloudy yellow pleural fluid. Right pleural effusion likely secondary to mets to lungs. Repeat CXR 11/08 continues to show massive right pleural effusion; 1400cc removed at which point chest tube was placed due to pneumothorax Pleural fluids analysis, collected, supports exudative effusion given positive for one of Light's criteria Pleural fluid cytology shows malignant breast carcinoma involving pleural space Carcinoembryonic antigen ordered, resulted as 1.5 CA 15?13 antigen ordered, resulted as 2.3 CA 125 antigen ordered, resulted as 140, CA 19?19 antigen ordered, resulted as 4 CT Abd/P w/ con shows: right chest tube with hydropneumothorax on the right CXR 11/19 shows mild to moderate R pleural fluid, ultrasound of lungs 11/19 shows moderate right pleural effusion and minimal left pleural effusion. - DuoNebs q6h - Supplemental O2, titrate as tolerated to maintain SpO2 >93% - Incentive spirometry - Pain control with [place] 5 every 4 hours as needed - Pleural fluid cytology ordered, showed malignant cells, likely from breast cancer - Thyroglobulin ordered, pending - Oncology consulted, appreciate recommendations - Work Adjustment Instructor spoke with patient who is agreeable to transfer for surgical decortication as the patient has a trapped lung; transferred to [facility] on 11/14, and then transferred back to [facility] on 11/17 without surgical decortication performed - Will discuss outpatient thoracenteses vs Pleurx chest tube placement - Will follow up with pathology regarding ER/CO and HER2 status of malignant breast carcinoma cells from pleural fluid #Pressure injury, coccyx, stage III Patient reports frequent back pain and it was noted that the patient had a possible pressure injury and her coccyx area. Per wound care nurse, the wound staging is stage III without any drainage or order. Plan: Wound care referral ordered Continue to monitor #Ovarian cyst vs. malignancy Tumor markers were ordered as per Radiology oncology recommendations CA 125 was elevated, likely secondary to patient's history of 16mm right adnexal cyst seen on CT Pelvis on 03/2023 Rad Onc is recommended repeating CT Abd/P with contrast to visualize other/primary source of malignancy CT Abd/P w/ con does not show any concerning ovarian mass Plan: Follow-up with Rad Onc recommendations #Gallbladder thickening As seen on CT Abd/P w/con Patient's LFTs are unremarkable Plan: Monitor LFT or clinical signs of GB disease #Hx Breast cancer s/p mastectomy 2017 - Follows oncology outpatient - hormone therapy letrozole 2.5mg #Hx thyroid cancer s/p thyroidectomy 2021 - Follows with oncology Dr. Flowers, who has been consulted - Continue Home levothyroxine 75mg ACBR #Depression Patient diagnosed s/p breast cancer. - Continue home sertraline 50 mg Health Maintenance: DVT Prophylaxis: Heparin GI Prophylaxis: N/A Bowel: N/A Diet: Regular Lines: Peripheral IV Code Status: FULL Patient plan of care was discussed with the attending physician, Dr. Sanon and senior resident Dr. Wang (PGY-2) Aftab Forman, PGY-1 Attending Provider Attestation/Addendum I have discussed and was present for the essential components of the history, physical examination, diagnosis, and treatment plan with the resident. I agree with the patient's care as documented by the resident and amended herein by me. Andrzej Sanon DO. Although this document has been carefully reviewed, there may still be some phonetic and other typographical errors. These errors are purely grammatical due to imperfections in the software program and should not be construed in any way to compromise the substance of the patient's medical care during this visit.
--- NOTE | 2024-11-19 14:08 | XR_ITS ---
Examination: AP chest single view TECHNIQUE: AP portable sitting chest single view Date and time: November 19, 2024, 1417 hours, comparison 11/19/2024 0955 hours INDICATIONS: History right pneumothorax post chest tube placement, history right pleural fluid FINDINGS: Stable position chest tube, no pneumothorax Mild to moderate right pleural fluid Pneumonia and atelectasis right lung Right axillary and left breast surgical clips IMPRESSION: Stable position right chest tube Mild to moderate right pleural fluid
--- NOTE | 2024-11-19 14:09 | XR_ITS ---
Examination: Ultrasound right hemithorax Ultrasound left hemithorax Technique: Grayscale sonographic images right and left hemithoraces Date and time: November 19, 2024, 1658 hrs. Indications: History right chest tube for pneumothorax, right pleural fluid on chest x-rays this week Findings: Moderate right pleural effusion Minimal left pleural effusion Impression: Moderate right pleural effusion
--- NOTE | 2024-11-19 15:06 | PC.PT ---
Patient is safe to stand and transfer to the bedside commode with no staff and no AD. PT will attempt to check patient ambulatory status at another time when patient has no mobility restrictions.
--- NOTE | 2024-11-19 15:23 | PC.SS ---
SS has sent referral to Out Patient PT using [facility] and fax. SS has provided pt with [facility] to follow up.
[2024-11-19] MEDS: SERTRALINE HCL 25 MG TABLET 50 MG PO (20:32)
[2024-11-20] VITALS (13 sets, daily range): BP systolic 96–121; BP diastolic 54–79; PULSE 50–74; RESP 12–98; TEMP 35.9–36.8; O2SAT 92–100; BMI 32.3
[2024-11-20] MEDS: ALBUTEROL/IPRATROPIUM (Duoneb) RT SOL 3 ML NEBU INH ×4 (01:52→18:36)
[2024-11-20] MEDS: HYDROcodone/APAP 5/325 TABLET 1 TAB PO ×4 (02:36→17:12)
[2024-11-20 05:34] LABS: Basophils # (Auto) 0.1 Thou/mm3 (0.0-0.2); Basophils % (Auto) 1 % (0-2.5); Eosinophils # (Auto) 0.9 Thou/mm3 (0.0-0.5); Eosinophils % (Auto) 9 % (0-10); Hematocrit 37.4 % (36.0-46.0); Hemoglobin 11.8 g/dL (12.0-16.0); Immature Granulocytes Auto 0.04 Thou/mm3 (0.00-0.00); Lymphocytes # (Auto) 1.1 Thou/mm3 (1.0-4.8); Lymphocytes % (Auto) 11 % (10-50); Mean Corpuscular HGB Conc 31.6 g/dl (31.0-37.0); Mean Corpuscular Hemoglobin 29.1 pg (25.0-35.0); Mean Corpuscular Volume 92 fL (80-100); Monocytes # (Auto) 0.8 Thou/mm3 (0.0-0.8); Monocytes % (Auto) 8 % (0-12); Neutrophils # (Auto) 7.0 Thou/mm3 (1.8-7.7); Neutrophils % (Auto) 70 % (37-80); Nucleated Red Blood Cell # 0.00 Thou/mm3 (0.00-0.00); Nucleated Red Blood Cell % 0 /100 WBC (0); Platelet Count 301 Thou/mm3 (140-440); RDW Standard Deviation 46.3 fL (36.4-46.3); Red Blood Count 4.06 Miln/mm3 (4.00-5.20); White Blood Count 10.0 Thou/mm3 (3.6-11.0)
[2024-11-20] MEDS: LEVOTHYROXINE SODIUM 25 MCG TABLET 75 MCG PO (05:53)
[2024-11-20 06:26] LABS: Albumin, Serum 3.4 gm/dL (3.4-4.8); Anion Gap 9 (7-16); BUN/Creatinine Ratio 11 Ratio (12-20); Blood Urea Nitrogen 8 mg/dL (9-23); Calcium 8.8 mg/dL (8.3-10.6); Calcium (Corrected) 9.3 mg/dL (8.5-10.1); Carbon Dioxide 26.6 mMol/L (20.0-31.0); Chloride 107 mMol/L (98-107); Creatinine (Component) 0.7 mg/dL (0.6-1.3); Estimated Creatinine Clearance 77.3 mL/min (>60); Glucose 78 mg/dL (74-106); Osmolality,Calculated 282 (275-295); Phosphorous 3.9 mg/dL (2.4-5.1); Potassium 4.5 mMol/L (3.4-5.1); Sodium 143 mMol/L (136-145); eGFR > 60 See Note
--- NOTE | 2024-11-20 08:22 | PC.NURSE ---
DR. FUENTES ROUNDING AND DISCUSSING POC WITH PATIENT.
--- NOTE | 2024-11-20 09:00 | XR_ITS ---
Examination: AP chest single view TECHNIQUE: Portable AP upright chest single view Date and time: November 20, 2024, 0919 hours, comparison 11/19/2024 INDICATIONS: History right pneumothorax post chest tube placement right pleural fluid FINDINGS: Right chest tube satisfactory position No pneumothorax Mild right pleural fluid Atelectasis in the lower lung zone on the right Normal heart size IMPRESSION: Right chest tube satisfactory position, no pneumothorax Mild right pleural fluid
--- NOTE | 2024-11-20 09:45 | PD.ONCPROG ---
Documentation for date of: 11/20/24 Subjective Subjective Interval history: Appears comfortable this a.m. a.m. labs 10.0 WBC hemoglobin 11.8 platelets 301K chest x-ray 9 AM. Mild right pleural fluid. Exam Vital Signs Temp Pulse Resp BP Pulse Ox O2 Del Method O2 Flow Rate 96.7 F L 62 15 107/62 94 L Room Air 2 11/20/24 08:00 11/20/24 08:26 11/20/24 08:00 11/20/24 08:00 11/20/24 08:00 11/20/24 08:00 11/19/24 07:24 Objective Objective Narrative Objective Narrative: Appears comfortable with no breathing difficulties. Labs 11/20/24 04:30 11/20/24 04:30 Labs: Laboratory Results - last 24 hr 11/20/24 04:30 WBC 10.0 RBC 4.06 Hgb 11.8 L Hct 37.4 MCV 92 MCH 29.1 MCHC 31.6 RDW Std Deviation 46.3 Plt Count 301 D Neut % (Auto) 70 Lymph % (Auto) 11 [place] % (Auto) 8 Eos % (Auto) 9 Baso % (Auto) 1 Neut # (Auto) 7.0 Lymph # (Auto) 1.1 [place] # (Auto) 0.8 Eos # (Auto) 0.9 H Baso # (Auto) 0.1 Immature Gran # (Auto) 0.04 H Absolute Nucleated RBC 0.00 Immature Gran % 0 Nucleated RBC % 0 Sodium 143 Potassium 4.5 D Chloride 107 Carbon Dioxide 26.6 Anion Gap 9 BUN 8 L Creatinine 0.7 Estim Creat Clear Calc 77.3 eGFR > 60 BUN/Creatinine Ratio 11 L Glucose 78 Calculated Osmolality 282 Calcium 8.8 Corrected Calcium 9.3 Phosphorus 3.9 Albumin 3.4 Assessment & Plan A&P Narrative 1. History of early-stage right breast CA receptor positive treated with bilateral mastectomy 2017 and estrogen modulator for 5 years. 2. Stage II papillary follicular thyroid cancer treated with thyroidectomy 2021 followed by radioiodine and external beam radiation. 3. Right pleural effusion with thoracentesis showing cytology suggestive of breast cancer. 4. Decortication procedure planned but reportedly abandoned in [place]. 5. Chest x-ray this a.m. shows only mild pleural fluid. Patient appears to want a PleurX catheter to replace chest tube once it is removed however. 6. I will see pt upon discharge and continue with oncological care and workup. Time Spent With Patient Time: Total time spent is greater than 50% in coordination of care (as documented) at patient's floor/unit and/or counseling patient:
[2024-11-20] MEDS: HEPARIN SOD INJ 5000 UNIT/ML VIAL SC (09:56)
[2024-11-20] MEDS: BALSAM PERU/CASTOR OIL (Venelex) 60 GM TUBE TOP (09:57)
[2024-11-20] MEDS: LETROZOLE 2.5 MG PO (09:57)
--- NOTE | 2024-11-20 10:58 | CHAP ---
Patient was visited by a Spiritual Care Volunteer on 11/20/2024 between 0855 and 0915 and received comfort, encouragement and/or prayer.
--- NOTE | 2024-11-20 11:34 | XR_ITS ---
Examination: Ultrasound right hemithorax Ultrasound left hemithorax Date and time: February 19, 2025, 1246 hours INDICATIONS: Right pleural disease on chest x-ray today. TECHNIQUE AND FINDINGS: High resolution grayscale sonographic images right and left hemithoraces Mild right pleural disease but lung surface is adjacent to the pleural surface on all images IMPRESSION: Lung surface adjacent to pleural surface on all images precludes safe thoracentesis
--- NOTE | 2024-11-20 11:44 | PD.RESPRO ---
Documentation for date of: 11/20/24 Exam Vital Signs Temp Pulse Resp BP Pulse Ox O2 Del Method O2 Flow Rate 96.7 F L 62 15 107/62 94 L Room Air 2 11/20/24 08:00 11/20/24 08:26 11/20/24 08:00 11/20/24 08:00 11/20/24 08:00 11/20/24 08:00 11/19/24 07:24 Objective Labs 11/20/24 04:30 11/20/24 04:30 Labs: Laboratory Results - last 24 hr 11/20/24 04:30 WBC 10.0 RBC 4.06 Hgb 11.8 L Hct 37.4 MCV 92 MCH 29.1 MCHC 31.6 RDW Std Deviation 46.3 Plt Count 301 D Neut % (Auto) 70 Lymph % (Auto) 11 [place] % (Auto) 8 Eos % (Auto) 9 Baso % (Auto) 1 Neut # (Auto) 7.0 Lymph # (Auto) 1.1 [place] # (Auto) 0.8 Eos # (Auto) 0.9 H Baso # (Auto) 0.1 Immature Gran # (Auto) 0.04 H Absolute Nucleated RBC 0.00 Immature Gran % 0 Nucleated RBC % 0 Sodium 143 Potassium 4.5 D Chloride 107 Carbon Dioxide 26.6 Anion Gap 9 BUN 8 L Creatinine 0.7 Estim Creat Clear Calc 77.3 eGFR > 60 BUN/Creatinine Ratio 11 L Glucose 78 Calculated Osmolality 282 Calcium 8.8 Corrected Calcium 9.3 Phosphorus 3.9 Albumin 3.4 Quality Measures Quality Measures VTE prophylaxis Assessment & Plan Assessment Current Active Medications: Generic Name Dose Route Start Last Admin Trade Name [place]iah PRN Reason Stop Dose Admin Acetaminophen 650 mg 11/17/24 19:20 Acetaminophen 325 Mg Tablet PO 12/17/24 19:19 Q6H PRN Fever >101.5 pain 1-4 Hydrocodone Bitart/Acetaminophen 1 tab 11/17/24 19:20 11/20/24 06:33 Hydrocodone/Apap 5/325 Tablet PO 11/22/24 19:19 1 tab Q4HR PRN Administration Pain Scale 5-10 Albuterol/Ipratropium 3 ml 11/18/24 01:00 11/20/24 07:03 Albuterol/Ipratropium (Duoneb) Rt Zo 3 Ml Nebu INH 12/18/24 00:59 3 ml Q6HRRT CHAPARRO Administration Albuterol/Ipratropium 3 ml 11/18/24 08:01 Albuterol/Ipratropium (Duoneb) Rt Zo 3 Ml Nebu INH 12/18/24 08:00 Q2HR PRN SHORTNESS OF BREATH OR WHEEZE Balsam Xiomy/[place] Oil 0 gm 11/18/24 09:00 11/20/24 09:57 Balsam Xiomy/[place] Oil (Venelex) 60 Gm Tube TOP 12/18/24 08:59 1 applicatio BID CHAPARRO Administration Heparin Sodium (Porcine) 5,000 unit 11/17/24 21:00 11/20/24 09:56 Heparin Sod Inj 5000 Unit/Ml Vial SC 12/01/24 20:59 5,000 unit Q12H CHAPARRO Administration Letrozole 2.5 mg 11/18/24 09:00 11/20/24 09:57 Letrozole 2.5 Mg Tablet (Non-Formulary) PO 12/18/24 08:59 2.5 mg QDAY CHAPARRO Administration Levothyroxine Sodium 75 mcg 11/18/24 06:00 11/20/24 05:53 Levothyroxine Sodium 25 Mcg Tablet PO 12/18/24 05:59 75 mcg ACBR CHAPARRO Administration Sertraline HCl 50 mg 11/17/24 21:00 11/19/24 20:32 Sertraline Hcl 25 Mg Tablet PO 12/17/24 20:59 50 mg HS CHAPARRO Administration
[2024-11-20 12:26] LABS: Hematocrit 40.2 % (36.0-46.0); Hemoglobin 12.7 g/dL (12.0-16.0)
--- NOTE | 2024-11-20 14:08 | PD.RESDS ---
Planned Discharge Date 11/20/24 DS: Providers Provider Date of admission: 11/17/24 18:17 Primary care physician: Physician No Primary/Family Admitting Provider: Varsha Caldwell MD Attending Provider on Admission: Srinath Sanon DO Consults: 11/17/24 23:01 Referral [place] Routine Comment: 11/18/24 05:52 Referral Wound Care Routine Comment: coccyx- moisture associated dermatitis/stage 3 PI 11/18/24 07:55 Consult to Oncology Routine Comment: Consulting Provider: Duane Flowers 11/18/24 10:25 PT [Referral Physical Therapy] Routine Comment: Physician Instructions: Attending Provider on DC: Srinath Sanon DO Discharging Provider: Aftab Forman DO DS: Diagnosis Problem List Completed Was Problem List Reviewed/Reconciled?: Yes Hospital Course Hospital Course Hospital course: Reason for hospitalization: Acute hypoxic respiratory failure Summary: This patient is a 64-year-old female with a past medical history significant for asthma, breast cancer s/p mastectomy 2017, thyroid cancer s/p thyroidectomy 2021 and radiation therapy, who presented to [facility] on 11/17 after being transferred back from [facility]. The patient was originally admitted for management of acute hypoxic respiratory failure secondary to a large right pleural effusion. During evaluation on that hospitalization, the patient was found to have exudative pleural fluid that was positive for breast carcinoma in the pleural fluid on cytology. It was determined that the patient likely had metastatic spread of her previous breast cancer to her lungs, which has been shown to be hypermetabolic on prior PET scans. The patient received 2 thoracenteses, however it was noted that the patient's lung was not reexpanding on the second thoracentesis, so chest tube was placed, which drained a significant amount of her right pleural effusion. It was noted that the patient was not having reexpansion of her lung, and so pulmonology recommended transfer to a facility of higher level care with CT surgery available to perform a pulmonary decortication with possible biopsy sampling from the lung for further classification of the breast carcinoma in the lungs. The patient was transferred to [facility] on 11/14, and was returned on 11/17 without any significant procedures being performed. It is not entirely clear as to why no procedure was performed, as it was noted in the discharge papers that the procedure was canceled due to the patient's metastases to her lungs, however it was very clear on the patient's discharge summary previously that it was known that the patient had metastatic spread to her lungs. During her stay at [facility], the patient was noted to have very minimal chest tube output, which was also the case when the patient was returned on 11/17. The original plan was for PleurX catheter placement, however due to the patient's stability and lack of signs of reaccumulation of the right pleural fluid, it was determined that the patient could be managed with close monitoring in the outpatient setting with possible PleurX catheter placement in the future if the patient is unable to tolerate repeat thoracenteses or if fluid accumulation in the lung necessitates a PleurX catheter placement. The case was discussed with the patient's radiation oncologist, Dr. Flowers, who will be following the case very closely and monitoring the patient's respiratory status in addition to the patient's PCP. An additional thoracentesis was attempted to be performed on 11/20, however the lung surface was just adjacent to the pleural surface on all images, which precluded a safe thoracentesis. Afterwards, the patient's chest tube was removed, to which the patient tolerated and repeat chest x-ray several hours later did not show any complications. The patient was advised to follow-up with her radiation oncologist, her PCP, and an oncologist for further management of her breast cancer that has spread to her lungs. The patient was also advised that she would need frequent chest x-rays for monitoring of her pleural fluid accumulation and to seek care immediately if she were to become short of breath once more. Discharge Recommendations: - Please follow-up with your radiation oncologist, Dr. Flowers, within 1 week of discharge - Follow up with PCP within 1 week of discharge - Please obtain frequent chest x-rays to monitor the status of your right pleural effusion and to monitor possible left pleural effusion in the future - Please discuss possibility of PleurX catheter placement with your outpatient physicians - It is imperative that you follow-up with a hematology oncologist for further management of your breast cancer, which has spread to your lungs - Continue rest of medications as previously prescribed - Return to the ED or call EMS if symptoms return and/or worsen If you don't have a PCP, you can make an appointment at the [facility]: [address] [place] [address] Hospital Diagnoses: #Massive right-sided pleural effusion with total atelectasis right lung #Status post thoracentesis 11/07/24 and 11/08/24 #Hydropneumothorax #Enlarging pulmonary nodules 2/2 #Breast carcinoma, metastatic #Asthma #Pressure injury, coccyx, stage III #Ovarian cyst vs. malignancy #Gallbladder thickening #Hx Breast cancer s/p mastectomy 2017 #Hx thyroid cancer s/p thyroidectomy 2021 #Depression Patient plan of care was discussed with the attending physician Dr. Talita Forman, PGY-1 Status at Discharge Overall status at discharge: patient is back to baseline Time Spent with Patient Time attestation: Total time spent providing and/or coordinating discharge services: Time spent: Greater than 30 minutes Exam Vital Signs Temp Pulse Resp BP Pulse Ox O2 Del Method O2 Flow Rate 96.7 F L 60 18 107/62 100 Room Air 2 11/20/24 08:00 11/20/24 12:26 11/20/24 12:11/20/24 08:00 11/20/24 12:11/20/24 08:00 11/19/24 07:24 Narrative Exam Physical Exam: General: Alert, no acute distress. Skin: Warm, dry, intact. Head: Normocephalic, atraumatic. Eye: Normal conjunctiva, PERRL. Cardiovascular: Regular rate and rhythm, no murmur, +S1/S2. Respiratory: Respirations unlabored, no crackles, no wheezing. Minimal breath sounds appreciated on RLL. Gastrointestinal: Soft, nontender, non-distended. No guarding or rebound tenderness. Extremities: No edema, no cyanosis, no clubbing. Neuro: No focal deficits observed. Conversant, moving all extremities. No overt cerebellar signs/incoordination. Psychiatric: Cooperative, appropriate affect. Discharge Plan Plan Patient Disposition: HOME (Self Care) Patient condition on transfer: Stable Care Plan Goals: -Follow-up with PCP within 1 week of discharge. If you do not have appointment, please follow-up with the [facility] with Dr. Wang. Call [phone] to make an appointment. -Follow up with repeat Chest x ray within 1week of discharge and follow up with Dr. Flowers -Continue rest of the home medications -Return to ED if symptoms persist or return Prescriptions/Referrals Prescriptions/Med Rec: Continued Fluticasone/Vilanterol (Breo Ellipta 100-25 Mcg INH) 1 EACH AER.POW.BA 1 ea IH QDAY Qty: 0 letrozole 2.5 mg tablet 2.5 mg PO .am sertraline 50 mg tablet 50 mg PO HS celecoxib 200 mg capsule 200 mg PO Q24H Patient Comments: TAKE 1 CAPSULE (200 MG) BY MOUTH EVERY DAY levothyroxine 75 mcg tablet 75 mcg PO .morning Patient Comments: TAKE 1 TABLET BY MOUTH EVERY DAY albuterol sulfate 90 mcg/actuation HFA aerosol inhaler 1 puff INHALATION PRN PRN (Reason: shortness of breath or wheezing) letrozole [Femara] 2.5 mg tablet 2.5 mg PO Q24H Referrals: No Primary/Family,Physician [Primary Care Provider] Patient/Caregiver Discharge Instructions Education Materials: Thoracentesis Dc, Preventing Common Respiratory ... Print Language: Jamaican Stand Alone Forms: [facility] Award Info., Patient Portal Info Letter Discharge Order Discharge Orders: Discharge (Routine); Ordered 11/20/24 Ordered By: Dmitry Wang Quality Discharge Quality Measures VTE prophylaxis Attestestation Attestation I have discussed and was present for the essential components of the discharge history, physical examination, diagnosis, and discharge treatment plan with the resident. I agree with the patient's discharge care as documented by the resident and amended herein by me. Andrzej Sanon, . The patient understood all discharge instructions, all questions were answered satisfactorily. The patient was instructed to return to the Emergency Department is symptoms worsened or persisted. Minimal repeat fluid collection in the right lung, unfortunately no decortication was performed at [facility] in [place] due to metastatic cancer, there was discussion whether to place PleurX catheter versus holding the tube and reimaging later on if the patient goes symptomatic, the patient was amenable to pulling the tube, she will follow-up with oncology next week and possibly up PleurX placed at a later time if fluid reaccumulates. Patient will need a chest x-ray in a week to reevaluate. All questions were answered satisfactorily, the patient was stable, afebrile, tolerating p.o. intake and ambulatory at time of discharge home. Although this document has been carefully reviewed, there may still be some phonetic and other typographical errors. These errors are purely grammatical due to imperfections in the software program and should not be construed in any way to compromise the substance of the patient's medical care during this visit.
--- NOTE | 2024-11-20 15:00 | PC.NURSE ---
COORDINATED CARE WITH DR. GAXIOLA, DOCTOR AT BEDSIDE TO REMOVE CHEST TUBE.
--- NOTE | 2024-11-20 16:00 | PC.NURSE ---
VITAL SIGNS AFTER CHEST TUBE REMOVAL WNL AND PT TOLERATED WELL.
--- NOTE | 2024-11-20 16:16 | PC.PT ---
Patient will be DC from PT services 03/25 patient is xI with bed mobility, transfers, and ambulation using no AD. Patient is safe to ambulate to the bathroom and in the halls with no AD and 1 staff for management of the chest tube. RN made aware.
--- NOTE | 2024-11-20 17:00 | XR_ITS ---
Examination: AP chest single view Technique one AP portable sitting chest single view Date and time: November 20, 2024, 1705 hrs., Comparison 11/20/2024 0911 hrs. Indications: Status post removal chest tube today. Findings: Mild prominence left ventricle Retrocardiac gastric hernia. Chest tube on the right has been removed No pneumothorax Significant atelectasis and possible pneumonia in the right lung Mild right pleural fluid Right axillary surgical clips Impression: No pneumothorax post removal right chest tube
== END 2024-11-20 20:25 | disposition home or self-care (01) | DRG 180 ==
PROVIDERS: Admitting Provider Student in an Organized Health Care Education/Training Program; Visit Provider Student in an Organized Health Care Education/Training Program
DX: C78.00 Secondary malignant neoplasm of unspecified lung (principal); J96.01 Acute respiratory failure with hypoxia; L89.153 Pressure ulcer of sacral region, stage 3; J94.8 Other specified pleural conditions; J98.11 Atelectasis; C78.2 Secondary malignant neoplasm of pleura; J45.909 Unspecified asthma, uncomplicated; F32.A Depression, unspecified; J43.9 Emphysema, unspecified; Z90.13 Acquired absence of bilateral breasts and nipples; Z85.850 Personal history of malignant neoplasm of thyroid; Z85.3 Personal history of malignant neoplasm of breast; Z79.890 Hormone replacement therapy; Z79.899 Other long term (current) drug therapy; Z88.2 Allergy status to sulfonamides; Z88.5 Allergy status to narcotic agent
CPT/HCPCS: 36415; 71045; 76999; 80053; 80069; 83735; 84100; 85014; 85018; 85025; 85610; 85730; 87081; 93005; 93225; 94640; 94664; 94762; 97162; A9270; J1644

== ENCOUNTER 2024-11-27 14:39 | Outpatient (RCR) | payer OTHER, SELFPAY ==
--- NOTE | 2024-11-27 16:02 | CTCFLWUP_ITS ---
[facility] [address] [place], [place] [address] FOLLOW-UP NOTE Date: 11/27/2024 MR#: [id number] Name: LINWOOD CARROLL : 1960 Dx: [id number] Malignant neoplasm of thyroid gland Identification. Patient underwent bilateral mastectomy for early-stage right breast CA 2017 followed by [facility] Dr. Coburn, and placed her on letrozole since. More recently patient was found to have stage II papillary thyroid cancer for which she underwent thyroidectomy 2021 and postop radioiodine and external beam radiation completed 2022. Patient was noted to have lung lesions which were biopsied in [place] with no sign of mets. Noted to have small lung nodules increasing in size which were scheduled to be biopsied at [facility] when she was admitted to [facility] [place] on 11/06/2024/2024 with shortness of breath and large right pleural effusion was noted. After thoracentesis which resulted in pneumothorax and need for chest tube 1400 cc of pleural fluid was removed. Pleural fluid cytology revealed malignant cells consistent with breast carcinoma involving pleural space. According to comment immunohistochemistry result can be nonspecific and unreliable on cytology cellblock specimen and could not be obtained. CA125 elevated at 140 while CEA CA 15-3 CA 19?9 are well within normal limits. Patient was briefly evaluated at [facility] in [place] by thoracic surgery for possible decortication procedure but this was abandoned. Out of the hospital patient appears well and anxious to move forward for further management of her apparent recurrent breast cancer. Patient's lungs are clear bilaterally. No neck masses or chest wall recurrence noted. A#1. Early-stage right breast CA, bilateral mastectomy 2017 [place], has been on letrozole for receptor positive cancer since. Followed at [facility] since. A#2. Suspected recurrence based on fluid cytology of thoracentesis right pleural effusion sample of 11/06/2024. Tumor markers CA125 elevated 140 CEA CA 15?3 CA 19?9 all low. A#3. Have patient be seen at [facility] again. A#4. Shall order PET scan for staging purposes. A#5. History of stage II papillary thyroid cancer status post thyroidectomy postop radioiodine and external beam completed April 2022. A#6. Patient has been Euthyroid on recent thyroglobulin has been kept low, though recent slightly recently. Cc: Trevor Suggs MD [facility] [place] Electronically signed by: Duane Flowers M.D. 11/27/2024 4:00 PM
== END 2024-12-21 23:59 | disposition home or self-care (01) ==
LOC: SCTC 14:39
PROVIDERS: PCP Family Medicine; Referring Provider Radiology Therapeutic Radiology; Visit Provider Radiology Therapeutic Radiology
DX: C50.911 Malignant neoplasm of unspecified site of right female breast (principal); J91.0 Malignant pleural effusion; R97.1 Elevated cancer antigen 125 [CA 125]; E89.0 Postprocedural hypothyroidism; Z92.3 Personal history of irradiation; R91.8 Other nonspecific abnormal finding of lung field; Z17.0 Estrogen receptor positive status [ER+]; Z79.811 Long term (current) use of aromatase inhibitors; Z90.13 Acquired absence of bilateral breasts and nipples; Z85.850 Personal history of malignant neoplasm of thyroid
CPT/HCPCS: 99213; G0463

== ENCOUNTER 2024-12-23 01:19 | Inpatient (IN) | payer OTHER, SELFPAY ==
[2024-12-23] VITALS (16 sets, daily range): BP systolic 105–157; BP diastolic 70–97; PULSE 65–90; RESP 12–28; TEMP 36.7–37.1; O2SAT 86–100; BMI 30.5
[2024-12-23] MEDS: MORPHINE SULF INJ 4 MG/ML VIAL 2 MG IV (01:19)
[2024-12-23] MEDS: MethylPREDNISolone SOD SUCC 62.5 MG/ML 2ML VIAL 125 MG IVP (01:19)
[2024-12-23] MEDS: ALBUTEROL/IPRATROPIUM (Duoneb) RT SOL 3 ML NEBU INH ×4 (01:23→19:14)
--- NOTE | 2024-12-23 01:31 | PD.EDSOB ---
ED SOB =RME/HPI General Chief Complaint: Shortness of Breath/Dyspnea Stated Complaint: DIFFICULTY BREATHING Time Seen by Provider: 12/23/24 01:36 PDT Arrival date/time: 12/23/24 01:19 PDT RME / HPI RME / HPI Narrative: See [facility] for Dr. Flowers's HPI Documentation. Related Data Home Medications ?Medication ?Instructions ?Recorded ?Confirmed Fluticasone/Vilanterol (Breo 1 ea IH QDAY Asthma #0 ea 02/02/17 12/23/24 Ellipta 100-25 Mcg INH) letrozole 2.5 mg tablet 2.5 mg PO .am 01/21/21 12/23/24 sertraline 50 mg tablet 50 mg PO HS 01/21/21 12/23/24 albuterol sulfate 90 mcg/actuation 1 puff inhalation PRN PRN 11/07/24 12/23/24 aerosol inhaler shortness of breath or wheezing celecoxib 200 mg capsule 200 mg PO Q24H 11/07/24 12/23/24 levothyroxine 75 mcg tablet 75 mcg PO .morning 11/07/24 12/23/24 hydrocodone 5 mg-acetaminophen 325 1 tab PO Q6H PRN pain 12/23/24 12/23/24 mg tablet Allergies Allergy/AdvReac Type Severity Reaction Status Date / Time Sulfa (Sulfonamide Allergy Severe Rash Verified 11/17/24 22:45 Antibiotics) tramadol Allergy Severe RASH, SOB Verified 11/17/24 22:44 PAPER TAPE Allergy Mild ICHY, Uncoded 11/17/24 22:44 LOCALIZED RASH Review of Systems Review of Systems Systems Reviewed: All systems reviewed, normal except as documented Past Medical History Past Medical History RESPIRATORY: Positive Asthma, Emphysema and Pneumonia () GASTROINTESTINAL: Positive Obesity REPRODUCTIVE: Positive Breast Cancer (double mastectomy) and Previous Pregnancies MUSCULOSKELETAL: Positive Musculoskeletal Disorders and Arthritis PSYCHO/SOCIAL: Positive Depression and Anxiety OTHER HISTORY: Positive Hospitalization (11/06/24 Acute Hypoxic Respiratory Failure - Large Right Pleural Effusion.), Autoimmune Disease (lupus- aunt and uncles), Radiation Therapy (thyroid), Chicken Pox and Breast Cancer (double mastectomy) Family History FAMILY HISTORY: Positive Family Cancer (great aunts- breast, aunts- uterus) Surgical History SURGICAL: Positive Thyroidectomy (total), Eye Surgery (lasik 18 yrs ago), Throat Surgery, Mastectomy (double-2018) and Tubal Ligation ED Exam Narrative Physical exam: See MDM for Dr. Flowers's Physical Exam Documentation. Course Quality Measures none Orders Category Date Time Status Bedside COVID-19 Antigen Test NOW Care 12/23/24 01:39 Completed COVID-19 Screening Questionnaire NOW Care 12/23/24 04:[address] Screening NOW Care 12/23/24 01:40 Completed EKG (ED ONLY) *Do not use* NOW Care 12/23/24 01:39 Completed Saline [Insert IV] NOW Care 12/23/24 01:39 Completed Straight [In and Out Catheter] X1 Care 12/23/24 01:[address] abdomen pelvis w con Stat Exams 12/23/24 01:[address] angio chest Stat Exams 12/23/24 01:40 Completed EKG (ED Only) Stat Exams 12/23/24 01:39 Draft US venous doppler LE BI Stat Exams 12/23/24 02:30 Completed XR chest 1V portable Stat Exams 12/23/24 01:40 Completed ABG [Arterial Blood Gas] Stat Lab 12/23/24 01:42 Ordered BNP [B-Type Natriuretic Peptide] Stat Lab 12/23/24 01:14 Completed Beta Hydroxybutyrate Stat Lab 12/23/24 01:14 Completed Bilirubin,Direct Stat Lab 12/23/24 01:14 Completed Blood Culture (Lab) Stat Lab 12/23/24 01:13 Received CBC Stat Lab 12/23/24 01:14 Completed CMP [Comprehensive Metabolic Panel] Stat Lab 12/23/24 01:14 Completed CRP [C-Reactive Protein] Stat Lab 12/23/24 01:14 Completed D-Dimer Stat Lab 12/23/24 01:14 Completed ESR [Sed Rate (ESR)] Stat Lab 12/23/24 01:14 Completed Free T3 Stat Lab 12/23/24 01:14 Completed Free T4 (Free Thyroxine) Stat Lab 12/23/24 01:14 Completed Influenza A & B Rapid Panel Stat Lab 12/23/24 01:38 Completed Lactate (Lactic Acid) Stat Lab 12/23/24 01:14 Completed Lipase Stat Lab 12/23/24 01:14 Completed Magnesium Stat Lab 12/23/24 01:14 Completed PT [Prothrombin Time with INR] Stat Lab 12/23/24 01:14 Completed PTT [Partial Thromboplastin Time] Stat Lab 12/23/24 01:14 Completed Path Review Blood Smear Stat Lab 12/23/24 01:14 Completed Procalcitonin Stat Lab 12/23/24 01:14 Completed TSH [Thyroid Stimulating Hormone] Stat Lab 12/23/24 01:14 Completed Troponin I Stat Lab 12/23/24 01:14 Completed UA, C/S IF [Urinalysis, C/S if Indicated] Stat Lab 12/23/24 07:24 Completed Albuterol/Ipratr Rt Zo [Duoneb Rt Zo] Med 12/23/24 01:39 Discontinued 3 ml INH X1 ONE MethylPREDNISolone.* [SoluMEDROL Inj] Med 12/23/24 01:39 Discontinued 125 mg IVP X1 ONE Morphine* Inj Med 12/23/24 01:40 Discontinued 2 mg IV X1 ONE Vital Signs Vital signs: Vital Signs Temperature 98.1 F 12/23/24 01:10 PST Pulse Rate 89 12/23/24 01:10 PST Respiratory Rate 22 H 12/23/24 01:10 PST Blood Pressure 145/97 H 12/23/24 01:10 PST Pulse Oximetry (%) 86 L 12/23/24 01:10 PST Oxygen Delivery Method Room Air 12/23/24 01:10 PST Shortness of Breath / Dyspnea MDM Narrative MDM Narrative:: This section includes all my notes and documentations, including HPI, PE, and ED course. Haile Flowers MD HPI: 64 y/o female with Hx of Metastatic Lung CA, Asthma, and Emphysema here with worsening shortness of breath for the past several days. No fever. No other complaints. ROS: All negative except as documented in HPI. Physical Exam: General: Alert and oriented. In respiratory distress. Hypoxia noted. Eyes: Conjunctivae and lids clear. ENT: No nasal congestion. Neck: Supple. Heart: RRR. Lungs: In respiratory distress. Decreased air movement in bibasilar velazquez. Abdomen: Soft and nontender. Normal bowel sounds. No distension. No rebound or guarding. Back: No CVA tenderness. Skin: Warm and dry. Neuro: Alert and oriented X 3. I reviewed all diagnostic test results: My interpretation of the EKG is: Difficult rhythm (76 bpm) with no STEMI. My interpretation of the chest x-ray is bilateral opacities. My review of the Abdomen/Pelvis CT report is: NAD. My review of the Chest CTA report is left pleural effusion and a right hydropneumothorax. My review of the Venous Dopple BLE US report is: No DVT. Blood tests and urine tests unremarkable. Covid/Influenza: Negative. At this point, diagnoses include: Respiratory failure with hypoxia Pleural effusion Hydropneumothorax Treatment here included: Oxygen Duoneb 3 mL SoluMedrol 125 mg IV Morphine 2 mg IV No significant proving noted. 04:45 - I discussed the case with our hospitalist. About the presentation and exam and diagnostics and treatments here. And need of further care in the hospital. Will accept the patient. Haile Flowers MD Patient data External records reviewed:: [facility] previous records (Reviewed prior ED records from 11/06/24. Patient was seen for Shortness of breath.) Clinical information provided by:: patient Social determinants that could affect healthcare access:: none Patient has the following chronic illnesses:: Asthma, Emphysema, Obesity, Breast Cancer, Arthritis, Lung CA, Depression and Anxiety How is presenting disease/condition affected by chronic disease/condition?: exacerbated by Evaluation data The following diagnostics were reviewed and interpreted by me:: lab results, radiology exam(s) and EKG tracing(s) (My interpretation of the EKG is: Difficult rhythm (76 bpm) with no STEMI. Haile Floewrs MD) Lab and/or radiology exams considered but not ordered:: None Interpretation Summary: I reviewed all diagnostic test results: My interpretation of the EKG is: Difficult rhythm (76 bpm) with no STEMI. My interpretation of the chest x-ray is bilateral opacities. My review of the Abdomen/Pelvis CT report is: NAD. My review of the Chest CTA report is left pleural effusion and a right hydropneumothorax. My review of the Venous Dopple BLE US report is: No DVT. Blood tests and urine tests unremarkable. Covid/Influenza: Negative. Medications / Prescriptions Medications or Prescriptions considered but not ordered:: None Medication administrations:: Medication Administration History Acetaminophen (Acetaminophen 325 Mg Tablet) 650 mg PO Q6H PRN PRN Reason: Fever >100.4 or pain 1-3 Stop: 01/22/25 05:48 Hydrocodone Bitart/Acetaminophen (Hydrocodone/Apap 10/325 Tab) 1 tab PO Q4H PRN PRN Reason: PAIN SCALE 4-6 (Moderate Stop: 12/28/24 05:53 Last Admin: 12/23/24 18:25 Dose: 1 tab Documented By: CB Comments: Pt requesting norco for pain of 9-10 Admin: 12/23/24 07:36 Dose: 1 tab Documented By: EF Comments: pain 9/10 offered morphine patient requested norco instead Albuterol/Ipratropium (Albuterol/Ipratropium (Duoneb) Rt Zo 3 Ml Nebu) 3 ml INH Q6HRRT CHAPARRO Stop: 01/22/25 06:59 Last Admin: 12/23/24 19:14 Dose: 3 ml Documented By: Admin: 12/23/24 13:30 Dose: 3 ml Documented By: Admin: 12/23/24 06:59 Dose: 3 ml Documented By: ZHANG Docusate Sodium (Docusate Sod 100 Mg Capsule) 100 mg PO QDAY [facility]; Protocol Stop: 01/22/25 08:59 Last Admin: 12/23/24 09:06 Dose: 100 mg Documented By: EF Heparin Sodium (Porcine) (Heparin Sod Inj 5000 Unit/Ml Vial) 5,000 unit SC Q8HR CHAPARRO Stop: 01/06/25 21:59 Morphine Sulfate (Morphine Sulf Inj 4 Mg/Ml Vial) 2 mg IVP Q4HR PRN PRN Reason: PAIN SCALE 7-10 (Severe Stop: 12/28/24 05:53 Pantoprazole Sodium (Pantoprazole Inj 40 Mg Vial) 40 mg IVP QDAY CHAPARRO Stop: 01/22/25 08:59 Last Admin: 12/23/24 09:06 Dose: 40 mg Documented By: EF Sertraline HCl (Sertraline Hcl 25 Mg Tablet) 50 mg PO QDAY [facility] Stop: 01/22/25 08:59 Last Admin: 12/23/24 09:06 Dose: 50 mg Documented By: EF Discontinued Medications Albuterol/Ipratropium (Albuterol/Ipratropium (Duoneb) Rt Zo 3 Ml Nebu) 3 ml INH X1 ONE Stop: 12/23/24 01:40 PST Last Admin: 11/02/25 01:23 PST Dose: 3 ml Documented By: ISABELLE Albuterol/Ipratropium (Albuterol/Ipratropium (Duoneb) Rt Zo 3 Ml Nebu) 3 ml INH Q6HR CHAPARRO Stop: 01/22/25 06:14 Last Admin: 12/23/24 06:42 Dose: Not Given Documented By: KESHA Non-Admin Reason: Wrong Time Methylprednisolone Sodium Succinate (Methylprednisolone Sod Succ 62.5 Mg/Ml 2ml Vial) 125 mg IVP X1 ONE Stop: 12/23/24 01:40 PST Last Admin: 12/23/24 01:19 PST Dose: 125 mg Documented By: ANNE(2) Morphine Sulfate (Morphine Sulf Inj 4 Mg/Ml Vial) 2 mg IV X1 ONE Stop: 12/23/24 01:41 PST Last Admin: 12/23/24 01:19 PST Dose: 2 mg Documented By: ANNE(2) Treatment here from me included: Oxygen Duoneb 3 mL SoluMedrol 125 mg IV Morphine 2 mg IV Consultations Consultation(s) initiated? (list below): Yes Consultation #1 (Physician, Specialty, Details): I discussed the case with our hospitalist. About the presentation and exam and diagnostics and treatments here. And need of further care in the hospital. Time: 04:45 Diagnosis Shortness of Breath Differential Diagnosis: acute exacerbation of chronic obstructive airways disease, congestive heart failure, community acquired pneumonia, asthma with exacerbation and pulmonary embolism Most likely diagnosis given after review of the tests above:: Respiratory failure with hypoxia Pleural effusion Hydropneumothorax Admission Indicated Admission indicated?: indicated Explain why admission is indicated or not indicated:: Respiratory failure with hypoxia Pleural effusion Hydropneumothorax Admission Request Was there a request for admission?: Yes Admission Attestation Admission request attestation: Discussed case with Hospitalist service regarding admission. Discussed patients ED course, exam findings, labs, and radiology results. Agreed to accept the patient for admission. Disposition Plan Disposition Plan: Admit Discharge Plan Plan Patient Disposition: Admit Acute Care w/in Hospital Problem List Clinical Impression: Acute respiratory failure with hypoxia, Pleural effusion, left, Hydropneumothorax
--- NOTE | 2024-12-23 01:39 | EKG_ITS ---
[facility] Test Date: 2024-12-23 Pat Name: LINWOOD CARROLL Department: Room: - Gender: Female Recenterer: : 1960 Requested By: Haile Cabral Order Number: [id number] Reading MD: Haile Cabral Measurements Intervals [place] Rate: 70 P: GA: QRS: 5 QRSD: 94 T: 43 QT: 450 QTc: 486 Interpretive Statements SUPRAVENTRICULAR RHYTHM POSSIBLE ANTERIOR MYOCARDIAL INFARCTION , PROBABLY OLD [30 ms Q WAVE IN V3/V4, OR R < 0.2 mV IN V4] ABNORMAL RHYTHM ECG Compared to ECG 11/18/2024 08:52:03 Supraventricular rhythm now present Myocardial infarct finding now present Sinus bradycardia no longer present /store/S0/[id number]/ecg/[id number].pdf
--- NOTE | 2024-12-23 01:40 | XR_ITS ---
Examination: CTA chest with intravenous contrast 2-D reconstructions 3-D reconstructions, vascular Date and time of exam: December 23, 2024, 0245 hours INDICATIONS: Shortness of breath chest pain hemoptysis today, thyroid carcinoma diagnosis with history right pleural effusion and pulmonary nodular metastatic disease on CT study November 06, 2024 CTDI: vol (mGy) 21.85 DLP: (mGycm) 393 Technique: Multiple axial sections of the thorax have been obtained. 3 mm slice thickness, from below the hemidiaphragms to above the apices of the lungs. Mediastinal and lung density settings have been obtained. 2-D sagittal and coronal reconstructions. 3-D angiographic renderings, 3-D volume renderings, 3D post processing, vascular maximum intensity projections obtained. Contrast administered is 100 cc Isovue-370 intravenous. Low dose protocols were performed. One or more of the following dose reduction techniques were used; automated exposure control, adjustment of the mA and/or KV according to patient size, use of iterative reconstruction technique. Findings: No thoracic aortic dissection. No pulmonary artery filling defects High right paratracheal mediastinal lymphadenopathy. Moderate to large left pleural effusion Loculated right hydropneumothorax with pneumonia right lung Multiple pulmonary nodules, the largest in the right upper lobe 20 mm No visualized liver or splenic lesion Distended gallbladder No hydronephrosis Moderate osteopenia IMPRESSION: Moderate to large left pleural effusion Moderate loculated right hydropneumothorax, pneumonia right lung Multiple metastatic pulmonary nodules, the largest in the right upper lobe 20 mm
--- NOTE | 2024-12-23 01:40 | XR_ITS ---
Examination: CT abdomen with intravenous contrast CT pelvis with intravenous contrast 2-D coronal reconstructions 2-D sagittal reconstructions Date and time of exam: December 23, 2024, 0245 hours INDICATIONS: Onset abdominal pain today. CTDI: vol (mGy) 19.98 DLP: (mGycm) 819 Technique: Multiple axial sections of the abdomen and pelvis have been obtained. 64 slice high-resolution scanner used. 3 mm axial sections have been obtained, post intravenous injection 60 cc Isovue 370 2-D sagittal, coronal reconstructions obtained. Low dose protocols were performed. One or more of the following dose reduction techniques were used; automated exposure control, adjustment of the mA and/or KV according to patient size, use of iterative reconstruction technique. Findings: Please see the CT angio chest report Liver is mildly irregular in contour No visualized liver splenic lesion Distended gallbladder No pancreatic or adrenal mass No hydronephrosis Aorta is not enlarged No bowel obstruction Normal appendix No diverticulitis Urinary bladder intact No pelvic mass IMPRESSION: No acute process in the abdomen or pelvis
--- NOTE | 2024-12-23 01:40 | XR_ITS ---
EXAMINATION: PA chest single view TECHNIQUE: Upright PA chest single view Date and time: December 23, 2024, 0143 hours, comparison 11/20/2024 INDICATIONS: Diagnosis thyroid cancer, difficulty breathing shortness of breath today. FINDINGS: Right hydropneumothorax Large left pleural effusion Mild prominence left ventricle with prominent vascular congestion Nodular parenchymal disease throughout the lungs Significant osteopenia IMPRESSION: Pulmonary nodular metastatic disease Right hydropneumothorax at least moderate Mild to moderate left pleural fluid
[2024-12-23 01:45] LABS: Lactate (Lactic Acid) 1.6 mMol/L (0.4-2.0)
[2024-12-23 01:48] LABS: Beta Hydroxybutyrate 0.4 mmol/L (<0.6); Sed Rate (ESR) 21 mm/hr (0-30)
[2024-12-23 01:50] LABS: Basophils # (Auto) 0.2 Thou/mm3 (0.0-0.2); Basophils % (Auto) 1 % (0-2.5); Lymphocytes # (Auto) 1.4 Thou/mm3 (1.0-4.8); Lymphocytes % (Auto) 10 % (10-50); Mean Corpuscular HGB Conc 32.8 g/dl (31.0-37.0); Mean Corpuscular Volume 88 fL (80-100); Nucleated Red Blood Cell # 0.00 Thou/mm3 (0.00-0.00); Nucleated Red Blood Cell % 0 /100 WBC (0)
[2024-12-23 01:52] LABS: Eosinophils # (Auto) 3.4 Thou/mm3 (0.0-0.5); Eosinophils % (Auto) 23 % (0-10); Hematocrit 46.9 % (36.0-46.0); Hemoglobin 15.4 g/dL (12.0-16.0); Immature Granulocytes Auto 0.07 Thou/mm3 (0.00-0.00); Mean Corpuscular Hemoglobin 28.9 pg (25.0-35.0); Monocytes # (Auto) 1.3 Thou/mm3 (0.0-0.8); Monocytes % (Auto) 9 % (0-12); Neutrophils # (Auto) 8.6 Thou/mm3 (1.8-7.7); Neutrophils % (Auto) 58 % (37-80); Platelet Count 356 Thou/mm3 (140-440); RDW Standard Deviation 45.3 fL (36.4-46.3); Red Blood Count 5.33 Miln/mm3 (4.00-5.20); White Blood Count 14.8 Thou/mm3 (3.6-11.0)
[2024-12-23 02:06] LABS: D-Dimer 965 ng/mL (<600)
[2024-12-23 02:15] LABS: INR 1.0 (0.9-1.3); Partial Thromboplastin Time 27.5 Seconds (22.0-36.0); Prothrombin Time 11.0 Seconds (9.0-12.2)
[2024-12-23 02:20] LABS: Alanine Aminotransferase < 7 U/L (10-49); Albumin, Serum 4.7 gm/dL (3.4-4.8); Albumin/Globulin Ratio 2.5 (1.2-2.2); Alkaline Phosphatase 74 U/L (46-116); Anion Gap 12 (7-16); Aspartate Amino Transferase 17 U/L (0-34); BUN/Creatinine Ratio 13 Ratio (12-20); Bilirubin,Direct 0.1 mg/dL (0.0-0.3); Bilirubin,Total 0.3 mg/dL (0.3-1.2); Blood Urea Nitrogen 9 mg/dL (9-23); C-Reactive Protein 1.1 mg/dL (0.0-0.9); Calcium 9.6 mg/dL (8.3-10.6); Calcium (Corrected) 9.6 mg/dL (8.5-10.1); Carbon Dioxide 26.0 mMol/L (20.0-31.0); Chloride 101 mMol/L (98-107); Creatinine (Component) 0.7 mg/dL (0.6-1.3); Estimated Creatinine Clearance 75.3 mL/min (>60); Globulin 1.9 gm/dL (2.3-3.5); Glucose 92 mg/dL (74-106); Lipase 16 U/L (12-53); Magnesium 2.0 mg/dL (1.6-2.6); Osmolality,Calculated 276 (275-295); Potassium 4.3 mMol/L (3.4-5.1); Procalcitonin 0.07 ng/ml (0.0-0.49); Sodium 139 mMol/L (136-145); Thyroid Stimulating Hormone 101.70 uIU/mL (0.55-4.78); Total Protein 6.6 gm/dL (5.7-8.2); Troponin I < 0.002 ng/mL (0.0-0.045); eGFR > 60 See Note
[2024-12-23 02:21] LABS: B-Type Natriuretic Peptide < 20 pg/mL (0-100)
[2024-12-23 02:27] LABS: Influenza A Ag Negative; Influenza B Ag Negative
--- NOTE | 2024-12-23 02:30 | XR_ITS ---
Examination: Venous duplex lower extremity sonogram, bilateral. Date and time of exam: December 23, 2024, 0335 hours INDICATIONS: Lower leg swelling several days, elevated D-dimer today Technique: Multiple sonographic images of the deep venous system have been obtained. B-mode/2-D grayscale imaging of vascular structures and Doppler spectral analysis (waveforms) and color performed Both legs are examined. Findings: Deep venous systems do not demonstrate abnormal echogenicity. All visualized deep veins exhibit compressibility. All visualized deep veins exhibit augmentation. Impression: Negative for deep vein thrombosis
[2024-12-23 03:01] LABS: Path Review Blood Smear Sent to Pathologist
[2024-12-23 03:03] LABS: Free T3 1.7 pg/mL (2.3-4.2); Free T4 (Free Thyroxine) 0.86 ng/dL (0.89-1.76)
--- NOTE | 2024-12-23 04:26 | PRELIM_ITS ---
CT angiogram of the chest with intravenous contrast (axial sections with sagittal and coronal reformats) December 23, 2024 0245 hours Clinical History: SOB HEMOPTYSIS Technique:Helical axial sections with sagittal and coronal reformats of the chest were obtained with intravenous contrast. Iterative reconstruction technique was employed to reduce patient radiation exposure. 3D/MIP reconstructed images were also provided. Comparison: No prior study is available for comparison. Findings: There is no filling defect within the pulmonary artery divisions to suggest pulmonary thromboembolism. There is a reflux of contrast into the inferior vena cava and hepatic veins. Nonspecific mediastinal lymph nodes are noted, for example along the pretracheal region and subcarinal region. Nonspecific bilateral hilar lymphatic tissue also noted. The thoracic aorta is unremarkable. There is no pericardial effusion. There is a moderate left pleural effusion with adjacent atelectasis. There is a moderate loculated right hydropneumothorax. Atelectatic changes are noted within the right lung. Multiple scattered solid pulmonary nodules are present in both lungs. The largest pulmonary nodule, located in the left upper lobe, measures approximately 15 ?? 18 mm and demonstrates spiculated margins (axial image 33/156). There is interstitial septal thickening in the lungs bilaterally. A small hiatal hernia is present. Degenerative changes are noted in the spine. CT abdomen and pelvis is reported separately. Impression: 1. No CT evidence of pulmonary thromboembolism. 2. Moderate left pleural effusion with adjacent atelectasis. 4. Moderate loculated right hydropneumothorax with atelectatic changes in the right lung. 4. Interstitial septal thickening and multiple scattered solid pulmonary nodules as described, which may reflect metastases. 5. Other findings as described above. Recommend clinical correlation and follow-up. Report Electronically Signed By: Segundo Arevalo 12/23/2024 4:25:41 AM [EST]
--- NOTE | 2024-12-23 04:33 | PRELIM_ITS ---
CT scan of the abdomen and pelvis with intravenous contrast (axial sections with sagittal and coronal reformats) December 23, 2024 0245 hours Clinical History: ABD PAIN Comparison: No prior study is available for comparison. Findings: The liver, gallbladder, pancreas, spleen, kidneys and adrenals are unremarkable. No evidence of bowel obstruction. The appendix is within normal limits (image 183/273). There is no mesenteric or retroperitoneal adenopathy. The urinary bladder is unremarkable. The uterus is unremarkable. There is a 2 cm right ovarian cyst. There is no free fluid or free air. There is a small uncomplicated fat-containing umbilical hernia. Degenerative changes are noted within the spine. CT chest is reported separately. Impression: No evidence of acute intra-abdominal or pelvic pathology. Other findings as described above. Report Electronically Signed By: Segundo Arevalo 12/23/2024 4:32:28 AM [EST]
--- NOTE | 2024-12-23 04:41 | PRELIM_ITS ---
Bilateral lower extremity venous Doppler ultrasound. December 23, 2024 0335 hours Clinical history: EDEMA HIGH DIMER Technique: Duplex scan of the bilateral lower extremity deep venous systems was performed utilizing 2D grayscale imaging, Doppler spectral analysis and color flow Doppler and with compression. Comparison: No prior study is available for comparison. Findings: Parikh scale, color flow and spectral Doppler evaluation of the lower extremity deep veins was performed. Right: The common femoral, superficial femoral and popliteal veins are patent and compressible. Normal respiratory variation is noted. There is no evidence of occlusive or nonocclusive thrombus. The great saphenous vein is patent at the level of the saphenofemoral junction. Calf veins to the extent visualized are unremarkable. . Left: The common femoral, superficial femoral and popliteal veins are patent and compressible. Normal respiratory variation is noted. There is no evidence of occlusive or nonocclusive thrombus. The great saphenous vein is patent at the level of the saphenofemoral junction. Cath veins to the extent visualized are unremarkable. Impression: No sonographic evidence of deep venous thrombosis in both lower extremities. Report Electronically Signed By: Segundo Arevalo 12/23/2024 4:40:53 AM [EST]
--- NOTE | 2024-12-23 05:48 | PD.RESHP ---
Documentation for date of: 12/23/24 HPI History of Present Illness History of present illness: Mrs. Andrew is a 64-year-old female past medical significant of asthma, breast cancer s/p mastectomy 2017, thyroid cancer s/p thyroidectomy 2021 and radiation therapy, recently admitted for acute hypoxic respiratory failure secondary to right large pleural effusion discharged 11/20 presenting today 12/23 with similar complaint of SOB. ED Course Summary: VS BP 145/97, HR 89 RR 22, T 98.1F, O2 sat 86% on 2L NC. Leukocytosis 14.8 D-dimer elevated 965 TSH 101.7 Free T4 0.86. EKG supraventricular rhythym QTC 486. CTAP CTA Venous doppler BLE US ordered, pending reads. Treatment was duonebs, steroids, and nasal cannula 4L O2, and IVF. Pulm and Oncology consulted Upon initial examination patient is speaking in short sentences on reports a hard time breathing, ever since discharge but it has been worsening since then, 11/20. She does not have home oxygen. She is still receiving treatment for breast cancer. On Tuesday she has a PET scan and then follow up with Dr. Flowers. She is aware that her presentation is most likely due to her malignant effusion form pulmonary metastases. Code: Full - but only intubated long enough so that her family can say goodbye Medical Hx: See above Medications: Pending med rec Allergies: sulfa, paper tape Surgical history: thyroidectomy and bilateral neck dissection 10/06/[address] Chandler Crouch in [place]. Breast cancer status post double mastectomy early stage being followed by Dr. 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 Exam Vital Signs Temp Pulse Resp BP Pulse Ox O2 Del Method O2 Flow Rate 98.2 F 76 14 121/89 H 94 L Nasal Cannula 5 12/23/24 05:39 12/23/24 05:39 12/23/24 05:39 12/23/24 05:39 12/23/24 05:39 12/23/24 05:39 12/23/24 05:39 Narrative Exam GENERAL APPEARANCE: AOx4. speaking in short sentences due to SOB, no cyanosis, pallor, or diaphoresis. HEENT: Normocephalic atraumatic, no facial trauma, neck is supple. Lids/conjunctiva normal. Mucous membranes moist, nares normal, lips/teeth normal uvula midline without oral pharyngeal erythema, exudate or swelling TMs normal bilaterally. No lymphangitis/lymphedema. CARDIAC: Regular rate and rhythm, S1+S2 heard. No murmurs, rubs, or gallops noted RESPIRATORY: respiratory effort increased, speaks in broken sentences, no tripod position, no accessory muscle use. Decreased breath sounds over bilateral lung bases, bronchial breath sounds auscultated RUL ABDOMINAL: NBS. Soft, obese ND, TTP at epigastrium discomfort radiates to her sides. No evidence of fluid wave. No pulsatile masses on exam, rebound tenderness, Parra sign or pain over Mcburney's point. MUSCLES/EXTREMITIES: No abnormal range of motion, no swelling. DERM: Warm, pink and dry. No rashes, dermatoses, petechiae or lesions. NEUROLOGICAL: Speech is clear and appropriate. Normal level of consciousness. 5/5 strength in all extremities. PSYCH: Normal mood and affect. Judgement/competence is appropriate Results: Labs 12/26/24 05:33 12/26/24 05:33 Labs: Short CBC 12/23/24 Range/Units 01:14 PST WBC 14.8 H (3.6-11.0) Thou/mm3 Hgb 15.4 (12.0-16.0) g/dL Hct 46.9 H (36.0-46.0) % Plt Count 356 D (140-440) Thou/mm3 BMP 12/23/24 01:14 PST Sodium 139 Potassium 4.3 Chloride 101 Carbon Dioxide 26.0 BUN 9 Creatinine 0.7 Glucose 92 Calcium 9.6 Cardiac Enzymes 12/23/24 Range/Units 01:14 PST Troponin I < 0.002 (0.0-0.045) ng/mL Liver Function 12/23/24 Range/Units 01:14 PST Total Bilirubin 0.3 (0.3-1.2) mg/dL Direct Bilirubin 0.1 (0.0-0.3) mg/dL AST 17 (0-34) U/L ALT < 7 L (10-49) U/L Alkaline Phosphatase 74 (46-116) U/L Albumin 4.7 (3.4-4.8) gm/dL Quality Measures Quality Measures VTE prophylaxis Advance care planning discussed with:: patient Medications Home Medications and Allergies Home Medications ?Medication ?Instructions ?Recorded ?Confirmed ?Type Fluticasone/Vilanterol (Breo 1 ea IH QDAY Asthma #0 ea 02/02/17 12/23/24 History Ellipta 100-25 Mcg INH) letrozole 2.5 mg tablet 2.5 mg PO .am 01/21/21 12/23/24 History sertraline 50 mg tablet 50 mg PO HS 01/21/21 12/23/24 History albuterol sulfate 90 mcg/actuation 1 puff inhalation PRN PRN 11/07/24 12/23/24 History aerosol inhaler shortness of breath or wheezing celecoxib 200 mg capsule 200 mg PO Q24H 11/07/24 12/23/24 History levothyroxine 75 mcg tablet 75 mcg PO .morning 11/07/24 12/23/24 History hydrocodone 5 mg-acetaminophen 325 1 tab PO Q6H PRN pain 12/23/24 12/23/24 History mg tablet Allergies Allergy/AdvReac Type Severity Reaction Status Date / Time Sulfa (Sulfonamide Allergy Severe Rash Verified 12/26/24 02:45 Antibiotics) tramadol Allergy Severe RASH, SOB Verified 12/26/24 02:45 adhesive tape Allergy Mild Rash Verified 12/26/24 02:45 Visit Medications Discontinued Medications Albuterol/Ipratropium (Albuterol/Ipratropium (Duoneb) Rt Zo 3 Ml Nebu) 3 ml INH X1 ONE Stop: 12/23/24 01:40 PST Last Admin: 12/23/24 01:23 PST Dose: 3 ml Methylprednisolone Sodium Succinate (Methylprednisolone Sod Succ 62.5 Mg/Ml 2ml Vial) 125 mg IVP X1 ONE Stop: 12/23/24 01:40 PST Last Admin: 12/23/24 01:19 PST Dose: 125 mg Morphine Sulfate (Morphine Sulf Inj 4 Mg/Ml Vial) 2 mg IV X1 ONE Stop: 12/23/24 01:41 PST Last Admin: 12/23/24 01:19 PST Dose: 2 mg Assessment & Plan Plan Mrs. Andrew is a 64-year-old female past medical significant of asthma, breast cancer s/p mastectomy 2017, thyroid cancer s/p thyroidectomy 2021 and radiation therapy, recently admitted for acute hypoxic respiratory failure secondary to right large pleural effusion discharged 11/20 presenting today 12/23 with similar complaint of SOB. #AHRF 03/25 #bilateral pleural effusion / #Pulmonary metastases #Status post thoracentesis 11/07/24 and 11/08/24 #Malignant breast carcinoma metastasis to lungs/pleural space #Complicated by hx of Asthma #Hospice? On initial presentation patient speaking in short sentences oxygen saturation 86% on 5L nasal cannula. Recent admission of similar presentation revealed exudative effusion from malignant metastases. D-dimer elevated, most likely due to cardiac stress. Still pending imaging final reads. CXR obvious fluid levels. Following up with Dr. Nino, pulm for thoracentesis. May be appropriate to have coordinated discussion with oncologist and floral department specialist about goals of care/hospice. Plan: - DuoNebs q6h - Supplemental O2, titrate as tolerated to maintain SpO2 >93% - Incentive spirometry - Pain control with [place] 5 every Q4HR PRN - Morphine 2mg Q4HR PRN - Pulm Dr. Nino consulted (day team text him please) - Consider goals of care discussion #Severe hypothyroidism #Hx thyroid cancer s/p thyroidectomy 2021 No current active symptoms of hypothyroid currently. TSH >100 free T4 0.86 Free T3 1.7 Plan: - Follows with oncology Dr. Flowers, (please call) - Continue Home levothyroxine 75mg ACBR pending med rec -Aim for suppressed TSH in setting of thyroid cancer #Hx of pressure injury, coccyx, stage III Patient reports frequent back pain and it was noted that the patient had a possible pressure injury and her coccyx area. Per last admission, the wound staging is stage III without any drainage or order. Plan: -Wound care referral ordered -Continue to monitor #Hx Breast cancer s/p mastectomy 2018 Follows oncology outpatient Plan: - Restart hormone therapy letrozole 2.5mg pending med rec #Depression Patient diagnosed s/p breast cancer. Plan: - Continue home sertraline 50 mg Health Maintenance: Code status: Full code DVT prophylaxis: SCD pending procedure GI prophylaxis: Protonix 40mg IVP QD Diet: Full Mccallum: None Lines: PIV Supplemental O2: NC, consider oxymask Disposition: Tele Patient seen and reviewed with attending Dr. Caldwell. Note written by David Sims MD PGY-1 Attending Provider Attestation/Addendum After examination of the patient and review of the clinical data I feel that this patient needs admission to the hospital for further treatment/evaluation. Plan of care discussed with patient and is in agreement. I Varsha Caldwell MD, attest that I was physically present for shannon portions of evaluation, and examined patient, labs and imagings and plan of care were discussed with IM residents team, and I agree with the findings and plans documented above.
[2024-12-23 07:46] LABS: Collection Type, Urine Clean Catch
[2024-12-23 07:57] LABS: Bilirubin,Urine Negative (Negative); Blood,Urine Negative (Negative); Clarity,Urine Clear (Clear/Hazy); Color,Urine Colorless (Lt Yel-Yel); Culture Indicated,Urine Not Indicated; Glucose, Urine Negative (Negative); Ketones,Urine Trace (Negative); Leukocyte Esterase,Urine Negative (Negative); Nitrite,Urine Negative (Negative); PH,Urine 6.0 (5.0-7.0); Protein,Urine Negative (Neg - Trace); RBC,Urine 1 /hpf (0-3); Specific Gravity,Urine 1.037 (1.001-1.035); Squamous Epithelial Cell,Urine < 1 /hpf (0-5); Urobilinogen,Urine Negative mg/dL (0.0-1.0); WBC,Urine < 1 /hpf (0-5)
[2024-12-23] MEDS: DOCUSATE SOD 100 MG CAPSULE PO (09:06)
[2024-12-23] MEDS: SERTRALINE HCL 25 MG TABLET 50 MG PO (09:06)
--- NOTE | 2024-12-23 15:41 | ESPR_ITS ---
Documentation for date of: 12/23/24 Subjective Subjective Interval history: 64-year-old female past medical history of asthma, breast cancer status post mastectomy 2018 with lung meta stasis on treatment currently following Dr. Coburn in [place], thyroid cancer status post thyroidectomy 2021 and radiation therapy who presented to [facility] emergency department with chief complaint of shortness of breath and was admitted overnight for complicated suspected malignant pleural effusion. Patient seen at bedside this morning complains of shortness of breath, currently saturating well on 5 L nasal cannula, is able to speak in short sentences does get shortness of breath while talking otherwise no increased work of breathing at baseline. Case discussed with library serials assistant, lung ultrasound performed at bedside, patient has relatively small effusion for thoracentesis. Effusion will be reassessed in a.m. and we will consider chest tube placement. Will continue supplemental oxygen for now, goals of care discussion in a.m. Exam Vital Signs Temp Pulse Resp BP Pulse Ox O2 Del Method O2 Flow Rate 98.5 F 83 22 H 157/85 H 95 Nasal Cannula 5 12/23/24 12:00 12/23/24 13:31 12/23/24 13:31 12/23/24 12:00 12/23/24 13:31 12/23/24 12:00 12/23/24 13:31 Narrative Exam GENERAL APPEARANCE: AOx4. speaking in short sentences due to SOB, no cyanosis, pallor, or diaphoresis. HEENT: Normocephalic atraumatic, no facial trauma, neck is supple. Lids/conjunctiva normal. Mucous membranes moist, nares normal, lips/teeth normal uvula midline without oral pharyngeal erythema, exudate or swelling TMs normal bilaterally. No lymphangitis/lymphedema. CARDIAC: Regular rate and rhythm, S1+S2 heard. No murmurs, rubs, or gallops noted RESPIRATORY: respiratory effort increased, speaks in broken sentences, no tripod position, no accessory muscle use. Decreased breath sounds over bilateral lung bases, bronchial breath sounds auscultated RUL ABDOMINAL: NBS. Soft, obese ND, TTP at epigastrium discomfort radiates to her sides. No evidence of fluid wave. No pulsatile masses on exam, rebound tenderness, Parra sign or pain over Mcburney's point. MUSCLES/EXTREMITIES: No abnormal range of motion, no swelling. DERM: Warm, pink and dry. No rashes, dermatoses, petechiae or lesions. NEUROLOGICAL: Speech is clear and appropriate. Normal level of consciousness. 5/5 strength in all extremities. PSYCH: Normal mood and affect. Judgement/competence is appropriate Objective Labs 12/24/24 05:19 12/24/24 05:19 Labs: Laboratory Results - last 24 hr 12/23/24 12/23/24 12/23/24 01:14 PST 01:38 PST 07:24 WBC 14.8 H RBC 5.33 H Hgb 15.4 Hct 46.9 H MCV 88 MCH 28.9 MCHC 32.8 RDW Std Deviation 45.3 Plt Count 356 D Neut % (Auto) 58 Lymph % (Auto) 10 [place] % (Auto) 9 Eos % (Auto) 23 H Baso % (Auto) 1 Neut # (Auto) 8.6 H Lymph # (Auto) 1.4 [place] # (Auto) 1.3 H Eos # (Auto) 3.4 H Baso # (Auto) 0.2 Immature Gran # (Auto) 0.07 H Absolute Nucleated RBC 0.00 Immature Gran % 1 H Nucleated RBC % 0 Smear Path Review Sent to Pathologist ESR 21 PT 11.0 INR 1.0 APTT 27.5 D-Dimer 965 H Sodium 139 Potassium 4.3 Chloride 101 Carbon Dioxide 26.0 Anion Gap 12 BUN 9 Creatinine 0.7 Estim Creat Clear Calc 75.3 eGFR > 60 BUN/Creatinine Ratio 13 Glucose 92 Calculated Osmolality 276 Lactic Acid 1.6 Calcium 9.6 Corrected Calcium 9.6 Magnesium 2.0 Total Bilirubin 0.3 Direct Bilirubin 0.1 AST 17 ALT < 7 L Alkaline Phosphatase 74 Troponin I < 0.002 C-Reactive Prot, Quant 1.1 H B-Natriuretic Peptide < 20 Total Protein 6.6 Albumin 4.7 Globulin 1.9 L Albumin/Globulin Ratio 2.5 H Lipase 16 Beta-Hydroxybutyrate/Acetoacetate 0.4 Procalcitonin 0.07 TSH 101.70 H* Free T4 0.86 L Free T3 pg/dL 1.7 L Ur Collection Type Clean Catch Urine Color Colorless A Urine Clarity Clear Urine pH 6.0 Ur Specific [place] 1.037 H Urine Protein Negative Urine Glucose (UA) Negative Urine Ketones Trace Urine Blood Negative Urine Nitrite Negative Urine Bilirubin Negative Urine Urobilinogen (Auto) Negative Ur Leukocyte Esterase Negative Urine RBC 1 Urine WBC < 1 Ur Squamous Epith Cells < 1 Urine Bacteria None Ur Culture Indicated? Not Indicated Influenza A (Rapid) Negative Influenza B (Rapid) Negative Quality Measures Quality Measures none Advance care planning discussed with:: patient Assessment & Plan Assessment Current Active Medications: Generic Name Dose Route Start Last Admin Trade Name Freq PRN Reason Stop Dose Admin Acetaminophen 650 mg 12/23/24 05:49 Acetaminophen 325 Mg Tablet PO 01/22/25 05:48 Q6H PRN Fever >100.4 or pain 1-3 Hydrocodone Bitart/Acetaminophen 1 tab 12/23/24 05:54 12/23/24 07:36 Hydrocodone/Apap 10/325 Tab PO 12/28/24 05:53 1 tab Q4H PRN Administration PAIN SCALE 4-6 (Moderate Albuterol/Ipratropium 3 ml 12/23/24 07:00 12/23/24 13:30 Albuterol/Ipratropium (Duoneb) Rt Zo 3 Ml Nebu INH 01/22/25 06:59 3 ml Q6HRRT CHAPARRO Administration Docusate Sodium 100 mg 12/23/24 09:00 12/23/24 09:06 Docusate Sod 100 Mg Capsule PO 01/22/25 08:59 100 mg QDAY CHAPARRO Administration Protocol Morphine Sulfate 2 mg 12/23/24 05:54 Morphine Sulf Inj 4 Mg/Ml Vial IVP 12/28/24 05:53 Q4HR PRN PAIN SCALE 7-10 (Severe Pantoprazole Sodium 40 mg 12/23/24 09:00 12/23/24 09:06 Pantoprazole Inj 40 Mg Vial IVP 01/22/25 08:59 40 mg QDAY CHAPARRO Administration Sertraline HCl 50 mg 12/23/24 09:00 12/23/24 09:06 Sertraline Hcl 25 Mg Tablet PO 01/22/25 08:59 50 mg QDAY CHAPARRO Administration Plan Mrs. Andrew is a 64-year-old female past medical significant of asthma, breast cancer s/p mastectomy 2017, thyroid cancer s/p thyroidectomy 2021 and radiation therapy, recently admitted for acute hypoxic respiratory failure secondary to right large pleural effusion discharged 11/20 presenting today 12/23 with similar complaint of SOB. #Acute hypoxic respiratory failure 2/2 #Left sided loculated pleural effusion 2/2 #Suspected malignant effusion, metastatic breast cancer #Hydropneumothorax right lung #Status post thoracentesis 11/07/24 and 11/08/24 #Asthma, by history #Stage IV breast cancer On initial presentation patient speaking in short sentences oxygen saturation 86% on 5L nasal cannula. Recent admission of similar presentation revealed exudative effusion from malignant metastases. Patient established with oncology outpatient, was transferred out for decortication however no intervention was done because of stage IV breast cancer. Case discussed with library serials assistant, lung ultrasound performed at bedside patient has loculated pleural effusion not enough for thoracentesis, will reassess in a.m. possibly may need chest tube. Plan: - Reassess pleural effusion in a.m., consider chest tube placement - Continue DuoNebs q6h - Supplemental O2, titrate as tolerated to maintain SpO2 >93% - Incentive spirometry - Pain control with [place] 5 every Q4HR PRN - Morphine 2mg Q4HR PRN - Pulmonology consulted, appreciate recommendations. -Oncology consulted, appreciate recommendations - Goals of care discussion in a.m. #Hypothyroidism #Hx thyroid cancer s/p thyroidectomy 2021 No current active symptoms of hyperthyroid currently. TSH >100 free T4 0.86 Free T3 1.7 Plan: - Continue home dose levothyroxine 75 mcg/day - Outpatient titration of medication #Hx of pressure injury, coccyx, stage III Patient reports frequent back pain and it was noted that the patient had a possible pressure injury and her coccyx area. Per last admission, the wound staging is stage III without any drainage or order. Plan: - Referral to wound care -Continue to monitor #Depression - Continue home dose sertraline Health Maintenance: Code status: Full code DVT prophylaxis: SCDs GI prophylaxis: Protonix 40mg IVP QD Diet: Cardiac Mccallum: None Lines: PIV Supplemental O2: Nasal cannula Disposition: Tele Case discussed with Attending Physician Dr. Syd Ramirez MD Internal Medicine PGY-2 Disclaimer: This note was dictated by speech recognition. Minor errors in undertaker assistant may be present due to voice recognition software. Attending Provider Attestation/Addendum I have examined the patient, reviewed labs and imaging findings, discussed the case with the resident(s), and reviewed entered orders. I agree with the plan of care as outlined in this note. Dr. Dustin MD
--- NOTE | 2024-12-23 17:20 | PD.PUCONS ---
HPI Pulmonology Consult Data of Consult Requesting Physician: Varsha Caldwell MD Primary Care Provider: Trevor Suggs MD Consult Narrative History of present illness: Patient is a 64-year-old female with past medical history significant for breast cancer status post bilateral mastectomy who presents with bilateral pleural effusions. Patient has a known right hydropneumothorax after loculated effusion secondary to malignancy. Patient presenting with increased shortness of breath previous few days. She remains admitted good spirits and denied any fever, chills, or night sweats. Not having significant pleuritic chest pain at this point. Functionally continues to get more and more limited and on evaluation in ED found to have significant left-sided pleural effusion that was amenable to intervention. Bedside ultrasound was brought and noted to have shows significant pleural effusion though an ideal pocket could not be isolated in the posterior position but only laterally. Given small distance between chest wall and lung we do not plan to do a thoracentesis at this time. Patient will be admitted by medicine for ongoing management with pulmonology following at their request. cc:: cc: Varsha Caldwell MD Review of Systems Review of Systems Narrative Review of Systems: Pertinent review of systems was reviewed and included in HPI above. Past Medical History Past Medical History Comments PMH COMMENT: Past medical history significant for breast and thyroid cancer, right hydropneumothorax with previous cytology in October showing malignant cells consistent with spread of her breast cancer, no significant surgical history No significant family history pertinent to acute presentation. No significant social history at this time. Meds Home Medications and Allergies Home Medications ?Medication ?Instructions ?Recorded ?Confirmed ?Type Fluticasone/Vilanterol (Breo 1 ea IH QDAY Asthma #0 ea 02/02/17 12/23/24 History Ellipta 100-25 Mcg INH) letrozole 2.5 mg tablet 2.5 mg PO .am 01/21/21 12/23/24 History sertraline 50 mg tablet 50 mg PO HS 01/21/21 12/23/24 History albuterol sulfate 90 mcg/actuation 1 puff inhalation PRN PRN 11/07/24 12/23/24 History aerosol inhaler shortness of breath or wheezing celecoxib 200 mg capsule 200 mg PO Q24H 11/07/24 12/23/24 History levothyroxine 75 mcg tablet 75 mcg PO .morning 11/07/24 12/23/24 History hydrocodone 5 mg-acetaminophen 325 1 tab PO Q6H PRN pain 12/23/24 12/23/24 History mg tablet celecoxib 200 mg capsule (Celebrex) 200 mg PO QDAY 12/26/24 12/26/24 History Allergies Allergy/AdvReac Type Severity Reaction Status Date / Time Sulfa (Sulfonamide Allergy Severe Rash Verified 12/26/24 02:45 Antibiotics) tramadol Allergy Severe RASH, SOB Verified 12/26/24 02:45 adhesive tape Allergy Mild Rash Verified 12/26/24 02:45 Exam Vital Signs Temp Pulse Resp BP Pulse Ox O2 Del Method O2 Flow Rate 97.2 F 77 26 H 113/75 98 Nasal Cannula 6 12/24/24 20:00 12/25/24 00:00 12/24/24 20:00 12/24/24 20:00 12/24/24 20:00 12/24/24 20:00 12/24/24 20:00 Narrative Exam GEN: Mild increased work of breathing, able to speak in short sentences HEENT: Dry mucus membranes, nasal flaring with increased speaking NECK: No JVD CVS: S1/S2+, no rubs, murmurs, gallops PULM: Absent breath sounds at both bases ABD: Soft, nontender, nondistended, bowel sounds present EXT: No clubbing or cyanosis NEURO: nonfocal on gross examination PSYCH: Patient remains cheerful and is adequate historian, appropriate mood and affect Physical Exam Completion Physical Exam Complete?: Yes Results - Through Operator Labs 12/31/24 05:13 12/31/24 05:13 Labs: Short CBC 12/24/24 Range/Units 05:19 WBC 17.3 H (3.6-11.0) Thou/mm3 Hgb 14.1 (12.0-16.0) g/dL Hct 43.9 (36.0-46.0) % Plt Count 308 D (140-440) Thou/mm3 BMP 12/24/24 05:19 Sodium 142 Potassium 3.8 D Chloride 104 Carbon Dioxide 26.5 BUN 6 L Creatinine 0.7 Glucose 101 Calcium 9.3 Liver Function 12/24/24 Range/Units 05:19 Total Bilirubin 0.4 (0.3-1.2) mg/dL AST < 10 (0-34) U/L ALT < 7 L (10-49) U/L Alkaline Phosphatase 61 (46-116) U/L Albumin 4.4 (3.4-4.8) gm/dL Assessment & Plan Additional Plan Additional Plan: Right hydropneumothorax Left pleural effusion Acute hypoxic respiratory failure Patient with large left pleural effusion likely amenable to chest tube placement. Will reassess tomorrow as adequate positioning could not be obtained in the emergency department during my evaluation Concerning for repeated malignant effusion with known breast cancer in the right hemithorax which led to trapped lung with persistent hydropneumothorax receiving chest tube today Effusion will need to be sent for pleural fluid analysis including cytology which is highly suspect Will determine ability to place chest tube as patient may ultimately require pleurodesis or PleurX catheter which can be placed to perpetuate auto pleurodesis Extensive counseling the patient at bedside including instruction to follow-up tomorrow afternoon for potential procedure Continue supplemental oxygen for acute hypoxic respiratory failure Bronchodilators as needed as per medicine Thank you for allowing us to participate in the care of this patient, will continue to follow along with you Provider Notation Provider Notation: Although this document has been carefully reviewed, there may still be some phonetic and other typographical errors. These errors are purely grammatical due to imperfections in the software program and should not be construed in any way to compromise the substance of the patient's medical care during this visit. Thank you for the opportunity and privilege in assisting you with this patient's care and management.
--- NOTE | 2024-12-23 18:45 | PD.ONCCONS ---
HPI Data of Consult Consult date: 12/23/24 Requesting Physician: Varsha Caldwell MD Primary Care Provider: Trevor Suggs MD Consult Narrative Reason for consult: History of breast cancer with positive pleural fluid cytology History of present illness: Patient who was initially diagnosed with early-stage right breast CA, underwent bilateral mastectomy 2017 at [facility], and has been taking letrozole for receptor positive breast cancer. Underwent thyroidectomy 2021 for stage II papillary thyroid carcinoma and received postop radioiodine and external beam. Patient was recently admitted with right pleural effusion and following thoracentesis malignant cells consistent with breast was diagnosed. Patient was scheduled for PET scan for the upcoming week and saw her medical oncologist Dr. Coburn at [facility] for follow-up. Patient was admitted early this morning for shortness of breath. Chest CT revealed moderate to large left pleural effusion moderate loculated right hydropneumothorax pneumonia right lung and multiple metastatic pulm nodules the largest right upper lobe 20 mm. There was no acute process in the abdomen or pelvis. Venous Doppler was negative for DVT. Labs revealed elevated WBC of 14.8 hemoglobin 15.4 platelets 3 56,000. Patient who has been taking Synthroid 75 mcg since her thyroid operation noted to have TSH considerably elevated at 101 with low T4 and T3. Patient now referred for oncological consultation. 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 SMOKING STATUS: Never smoker Past Medical History Comments PMH COMMENT: Prior right breast CA early-stage receptor positive treated with bilateral mastectomy and estrogen modulator since. History of stage II papillary follicular thyroid cancer treated with thyroidectomy 2021. Meds Home Medications and Allergies Home Medications ?Medication ?Instructions ?Recorded ?Confirmed ?Type Fluticasone/Vilanterol (Breo 1 ea IH QDAY Asthma #0 ea 02/02/17 12/23/24 History Ellipta 100-25 Mcg INH) letrozole 2.5 mg tablet 2.5 mg PO .am 01/21/21 12/23/24 History sertraline 50 mg tablet 50 mg PO HS 01/21/21 12/23/24 History albuterol sulfate 90 mcg/actuation 1 puff inhalation PRN PRN 11/07/24 12/23/24 History aerosol inhaler shortness of breath or wheezing celecoxib 200 mg capsule 200 mg PO Q24H 11/07/24 12/23/24 History levothyroxine 75 mcg tablet 75 mcg PO .morning 11/07/24 12/23/24 History hydrocodone 5 mg-acetaminophen 325 1 tab PO Q6H PRN pain 12/23/24 12/23/24 History mg tablet Allergies Allergy/AdvReac Type Severity Reaction Status Date / Time Sulfa (Sulfonamide Allergy Severe Rash Verified 11/17/24 22:45 Antibiotics) tramadol Allergy Severe RASH, SOB Verified 11/17/24 22:44 PAPER TAPE Allergy Mild ICHY, Uncoded 11/17/24 22:44 LOCALIZED RASH Exam Vital Signs Temp Pulse Resp BP Pulse Ox O2 Del Method O2 Flow Rate 98.4 F 84 22 H 121/81 95 Nasal Cannula 3 12/23/24 18:26 12/23/24 18:26 12/23/24 18:26 12/23/24 18:26 12/23/24 18:26 12/23/24 18:26 12/23/24 18:26 Results Labs 12/23/24 01:14 PST 12/23/24 01:14 PST Labs: Short CBC 12/23/24 Range/Units 01:14 PST WBC 14.8 H (3.6-11.0) Thou/mm3 Hgb 15.4 (12.0-16.0) g/dL Hct 46.9 H (36.0-46.0) % Plt Count 356 D (140-440) Thou/mm3 BMP 12/23/24 01:14 PST Sodium 139 Potassium 4.3 Chloride 101 Carbon Dioxide 26.0 BUN 9 Creatinine 0.7 Glucose 92 Calcium 9.6 Cardiac Enzymes 12/23/24 Range/Units 01:14 PST Troponin I < 0.002 (0.0-0.045) ng/mL Liver Function 12/23/24 Range/Units 01:14 PST Total Bilirubin 0.3 (0.3-1.2) mg/dL Direct Bilirubin 0.1 (0.0-0.3) mg/dL AST 17 (0-34) U/L ALT < 7 L (10-49) U/L Alkaline Phosphatase 74 (46-116) U/L Albumin 4.7 (3.4-4.8) gm/dL Urine 12/23/24 Range/Units 07:24 Urine Color Colorless A (Lt Yel-Yel) Urine Clarity Clear (Clear/Hazy) Urine pH 6.0 (5.0-7.0) Ur Specific [place] 1.037 H (1.001-1.035) Urine Protein Negative (Neg - Trace) Urine Glucose (UA) Negative (Negative) Assessment and Plan Additional Assessment & Plan Additional Plan: 1. History of early-stage right breast CA treated with bilateral mastectomy taking letrozole for receptor positive cancer since 2. Recent discovery of malignant cells in right pleural fluid consistent with breast cancer recurrence. 3. Admitted with shortness of breath recurrence of right pleural fluid larger metastatic nodules. 4. Even though involves some risk, I would recommend biopsy of the large 2 cm right upper lobe lesion during her admission.. This will give us additional tools such as knowing HER2/claudio status receptor status of the recurrent cancer unavailable with already performed cytology studies. 5. Patient with prior thyroid cancer status post thyroidectomy and radiation postop with very high TSH and low T4 T3, requires higher level of Synthroid than she has been previously taking of 75 mcg. Recommend 100 mcg a day, which not only will provide her with the hormone no longer being produced but even acting as an anticancer drug by keeping TSH low. 6. Admitted with elevated white count along with lung infiltrates will need to be on antibiotics.
[2024-12-23] MEDS: HEPARIN SOD INJ 5000 UNIT/ML VIAL SC (21:38)
[2024-12-24] VITALS (19 sets, daily range): BP systolic 107–142; BP diastolic 55–92; PULSE 57–112; RESP 18–26; TEMP 36.1–36.7; O2SAT 95–99; BMI 31.8
[2024-12-24] MEDS: ALBUTEROL/IPRATROPIUM (Duoneb) RT SOL 3 ML NEBU INH ×4 (01:03→19:35)
[2024-12-24 05:35] LABS: Basophils # (Auto) 0.1 Thou/mm3 (0.0-0.2); Basophils % (Auto) 1 % (0-2.5); Eosinophils # (Auto) 1.5 Thou/mm3 (0.0-0.5); Eosinophils % (Auto) 9 % (0-10); Hematocrit 43.9 % (36.0-46.0); Hemoglobin 14.1 g/dL (12.0-16.0); Immature Granulocytes Auto 0.08 Thou/mm3 (0.00-0.00); Lymphocytes # (Auto) 1.1 Thou/mm3 (1.0-4.8); Lymphocytes % (Auto) 6 % (10-50); Mean Corpuscular HGB Conc 32.1 g/dl (31.0-37.0); Mean Corpuscular Hemoglobin 28.6 pg (25.0-35.0); Mean Corpuscular Volume 89 fL (80-100); Monocytes # (Auto) 1.7 Thou/mm3 (0.0-0.8); Monocytes % (Auto) 10 % (0-12); Neutrophils # (Auto) 12.8 Thou/mm3 (1.8-7.7); Neutrophils % (Auto) 74 % (37-80); Nucleated Red Blood Cell # 0.00 Thou/mm3 (0.00-0.00); Nucleated Red Blood Cell % 0 /100 WBC (0); Platelet Count 308 Thou/mm3 (140-440); RDW Standard Deviation 46.3 fL (36.4-46.3); Red Blood Count 4.93 Miln/mm3 (4.00-5.20); White Blood Count 17.3 Thou/mm3 (3.6-11.0)
[2024-12-24] MEDS: HEPARIN SOD INJ 5000 UNIT/ML VIAL SC ×2 (05:46→21:16)
[2024-12-24 06:19] LABS: Alanine Aminotransferase < 7 U/L (10-49); Albumin, Serum 4.4 gm/dL (3.4-4.8); Albumin/Globulin Ratio 2.1 (1.2-2.2); Alkaline Phosphatase 61 U/L (46-116); Anion Gap 12 (7-16); Aspartate Amino Transferase < 10 U/L (0-34); BUN/Creatinine Ratio 9 Ratio (12-20); Bilirubin,Total 0.4 mg/dL (0.3-1.2); Blood Urea Nitrogen 6 mg/dL (9-23); Calcium 9.3 mg/dL (8.3-10.6); Calcium (Corrected) 9.3 mg/dL (8.5-10.1); Carbon Dioxide 26.5 mMol/L (20.0-31.0); Chloride 104 mMol/L (98-107); Creatinine (Component) 0.7 mg/dL (0.6-1.3); Estimated Creatinine Clearance 77.0 mL/min (>60); Globulin 2.1 gm/dL (2.3-3.5); Glucose 101 mg/dL (74-106); Magnesium 2.0 mg/dL (1.6-2.6); Osmolality,Calculated 280 (275-295); Phosphorous 4.3 mg/dL (2.4-5.1); Potassium 3.8 mMol/L (3.4-5.1); Sodium 142 mMol/L (136-145); Total Protein 6.5 gm/dL (5.7-8.2); eGFR > 60 See Note
[2024-12-24] MEDS: DOCUSATE SOD 100 MG CAPSULE PO (08:54)
[2024-12-24] MEDS: SERTRALINE HCL 25 MG TABLET 50 MG PO (08:55)
--- NOTE | 2024-12-24 08:58 | PC.SS ---
Follow up note: Chest tube placed today. Pt is on 5 liters of O2.
--- NOTE | 2024-12-24 10:43 | ESPR_ITS ---
<Statement entered by Wolf Prather MD - 12/24/24 16:16> Patient seen and examined at bedside. I discussed and supervised with the internal sales physician who took care of this patient. I personally saw and examined the patient. I agree with most of the assessment and plan. Pulmonary following, plan to eval with US for chest tube vs thoracentesis. Spoke with oncologist Dr. Flowers, recommended biopsy of R upper lung mass if possible. With discuss with radiology. Patient scheduled for PET scan at [facility] 12/27, will reschedule if patient is not discharged by then. Initiated Zosyn and doxycyline today. Increased levothyroxine due to TSH 101. Plan of care discussed with attending Dr. Chan. Wolf Prather MD PGY-2 Documentation for date of: 12/24/24 Subjective Subjective Interval history: Received chest tube placement for drainage of left pleural effusion. Will do right upper lung mass biopsy in the future. Started on IV zosyn and IV doxycycline. Increased levothyroxine from 70mg to 100mg ACBR. No Overnight events. Labs reviewed and patient examined at the bedside. Denies chest pain, palpation, abdominal pain, N/V, fevers or chills. Exam Vital Signs Temp Pulse Resp BP Pulse Ox O2 Del Method O2 Flow Rate 97.2 F 75 19 116/73 99 Nasal Cannula 3 12/24/24 07:06 12/24/24 07:17 12/24/24 07:17 12/24/24 07:06 12/24/24 07:17 12/24/24 07:06 12/24/24 07:17 Narrative Exam General: No acute distress, well nourished, AAO x3 Eye: Normal conjunctiva, no scleral icterus HENT: Normocephalic, atraumatic, hearing intact to conversation at normal volume, moist oral mucosa Neck: Supple, non-tender, no JVD, no lymphadenopathy Lungs: Symmetric chest rise, No wheezing, rhonchi, crackles, Decreased breathe sounds in bilateral lung bases. Heart: Peripheral pulses intact bilaterally, Regular Rate and Rhythm. Abdomen: Soft, non-tender, non-distended, no palpable masses Musculoskeletal: Normal range of motion and strength, No cyanosis or edema, No visible joint swelling Skin: Skin is warm, dry, no rashes or lesions. Psychiatric: Cooperative, appropriate mood and affect, Awake and alert, not agitated Neuro: Cranial nerves II-XII grossly intact. Strength 5/5 throughout. Sensations intact to light touch. Objective Labs 01/01/25 05:37 01/01/25 05:37 Labs: Laboratory Results - last 24 hr 12/24/24 05:19 WBC 17.3 H RBC 4.93 Hgb 14.1 Hct 43.9 MCV 89 MCH 28.6 MCHC 32.1 RDW Std Deviation 46.3 Plt Count 308 D Neut % (Auto) 74 Lymph % (Auto) 6 L [place] % (Auto) 10 Eos % (Auto) 9 Baso % (Auto) 1 Neut # (Auto) 12.8 H Lymph # (Auto) 1.1 [place] # (Auto) 1.7 H Eos # (Auto) 1.5 H Baso # (Auto) 0.1 Immature Gran # (Auto) 0.08 H Absolute Nucleated RBC 0.00 Immature Gran % 1 H Nucleated RBC % 0 Sodium 142 Potassium 3.8 D Chloride 104 Carbon Dioxide 26.5 Anion Gap 12 BUN 6 L Creatinine 0.7 Estim Creat Clear Calc 77.0 eGFR > 60 BUN/Creatinine Ratio 9 L Glucose 101 Calculated Osmolality 280 Calcium 9.3 Corrected Calcium 9.3 Phosphorus 4.3 Magnesium 2.0 Total Bilirubin 0.4 AST < 10 ALT < 7 L Alkaline Phosphatase 61 Total Protein 6.5 Albumin 4.4 Globulin 2.1 L Albumin/Globulin Ratio 2.1 Quality Measures Quality Measures none Advance care planning discussed with:: patient and other Assessment & Plan Assessment Current Active Medications: Generic Name Dose Route Start Last Admin Trade Name Freq PRN Reason Stop Dose Admin Acetaminophen 650 mg 12/23/24 05:49 Acetaminophen 325 Mg Tablet PO 01/22/25 05:48 Q6H PRN Fever >100.4 or pain 1-3 Hydrocodone Bitart/Acetaminophen 1 tab 12/23/24 05:54 12/24/24 05:47 Hydrocodone/Apap 10/325 Tab PO 12/28/24 05:53 1 tab Q4H PRN Administration PAIN SCALE 4-6 (Moderate Albuterol/Ipratropium 3 ml 12/23/24 07:00 12/24/24 07:17 Albuterol/Ipratropium (Duoneb) Rt Zo 3 Ml Nebu INH 01/22/25 06:59 3 ml Q6HRRT CHAPARRO Administration Docusate Sodium 100 mg 12/23/24 09:00 12/24/24 08:54 Docusate Sod 100 Mg Capsule PO 01/22/25 08:59 100 mg QDAY CHAPARRO Administration Protocol Heparin Sodium (Porcine) 5,000 unit 12/23/24 22:00 12/24/24 05:46 Heparin Sod Inj 5000 Unit/Ml Vial SC 01/06/25 21:59 5,000 unit Q8HR CHAPARRO Administration Morphine Sulfate 2 mg 12/23/24 05:54 Morphine Sulf Inj 4 Mg/Ml Vial IVP 12/28/24 05:53 Q4HR PRN PAIN SCALE 7-10 (Severe Pantoprazole Sodium 40 mg 12/23/24 09:00 12/24/24 08:56 Pantoprazole Inj 40 Mg Vial IVP 01/22/25 08:59 40 mg QDAY CHAPARRO Administration Sertraline HCl 50 mg 12/23/24 09:00 12/24/24 08:55 Sertraline Hcl 25 Mg Tablet PO 01/22/25 08:59 50 mg QDAY CHAPARRO Administration Plan Mrs. Andrew is a 64-year-old female past medical significant of asthma, breast cancer s/p mastectomy 2017, thyroid cancer s/p thyroidectomy 2021 and radiation therapy, recently admitted for acute hypoxic respiratory failure secondary to right large pleural effusion discharged 11/20 presenting today 12/23 with similar complaint of SOB. #Acute hypoxic respiratory failure /2 #Left sided loculated pleural effusion 2/2 #Suspected malignant effusion, metastatic breast cancer #Hydropneumothorax right lung #Status post thoracentesis 11/07/24 and 11/08/24 #Asthma, by history #Stage IV breast cancer On initial presentation patient speaking in short sentences oxygen saturation 86% on 5L nasal cannula. Recent admission of similar presentation revealed exudative effusion from malignant metastases. Patient established with oncology outpatient, was transferred out for decortication however no intervention was done because of stage IV breast cancer. Case discussed with amusement park ride mechanic, lung ultrasound performed at bedside patient has loculated pleural effusion not enough for thoracentesis, will reassess in a.m. possibly may need chest tube. Plan: -Received Chest tube placement for pleural effusion in left lung (12/24/2024) -Continue DuoNebs q6h -Supplemental O2, titrate as tolerated to maintain SpO2 >93% -Incentive spirometry -Pain control with [place] 5 every Q4HR PRN -Morphine 2mg Q4HR PRN -Pulmonology consulted, appreciate recommendations. -Oncology consulted, appreciate recommendations -Goals of care discussion in a.m. #Hypothyroidism #Hx thyroid cancer s/p thyroidectomy 2021 No current active symptoms of hyperthyroid currently. TSH >100 free T4 0.86 Free T3 1.7 Plan: -Increased levothyroxine dosage from 75 mcg/day to 100mcg/day. -Outpatient titration of medication #Hx of pressure injury, coccyx, stage III Patient reports frequent back pain and it was noted that the patient had a possible pressure injury and her coccyx area. Per last admission, the wound staging is stage III without any drainage or order. Plan: -Referral to wound care -Continue to monitor #Depression - Continue home dose sertraline Health Maintenance: Code status: Full code DVT prophylaxis: SCDs GI prophylaxis: Protonix 40mg IVP QD Diet: Cardiac [place]: None Lines: PIV Supplemental O2: Nasal cannula Disposition: Tele Assessment and plan discussed with my attending physician Dr. Chan and Dr. Prather (PGY-2) Dr. Henry (PGY-1) - Internal medicine resident Attending Provider Attestation/Addendum I have examined the patient, reviewed labs and imaging findings, discussed the case with the resident(s), and reviewed entered orders. I agree with the plan of care as outlined in this note, with these additional summaries/recommendations: Patient seen at bedside. No acute overnight events. She endorses mild improvement in shortness of breath today. Patient admitted for acute hypoxic respiratory failure which is multifactorial. Patient requiring 4 L nasal cannula today and appears short of breath when speaking. We will wean O2 requirements as tolerated. Continue IV antibiotic for bacterial pneumonia. Patient will go for thoracentesis versus chest tube placement today for left- sided loculated pleural effusion. Previous cytology from thoracentesis of right lung revealed malignant cells present which were consistent with breast carcinoma involving the pleural space. Multiple pulmonary nodules noted on CTA chest with the largest in right upper lobe 20 mm. In-house oncology consulted and recommends biopsy of lung nodule which patient is in agreement with. Patient follows Dr. Li in [place] and has upcoming PET scan at [facility] on December 27, 2024. Patient has a history of thyroid cancer status post thyroidectomy and radiation with TSH now 101.7 and free T40.86. Patient takes levothyroxine 75 mcg daily and we will increase to 100 mcg daily. Minimal pressure ulcer and consult wound care. Leukocytosis increased and repeat hematology panel in AM. Continue home sertraline. Patient updated on the plan and agreement. All questions answered to satisfaction. Please see residents note for additional details and management. Dr. Dustin MD
[2024-12-24] MEDS: PIPER/TAZO INJ 4.5 GM in SODIUM CHLORIDE 0.9% (POP) 100 ML IV (12:23)
--- NOTE | 2024-12-24 14:52 | PC.SS ---
SS met with patient regarding her d/c plan. Pt is alert/oriented. Pt was admitted for Malignant Pleural Effusion 2/2 Breast CA Pulm Mets. Pt confirmed demographic and contact information is correct on facesheet. Pt resides with . Pt ambulates independently without assistance or DME. Pt is ok with all ADLs. 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 Pt named her , Matthias Canseco medical decision maker if she is unable. Patient?s choice is to return home upon d/c. Pt states she is not diabetic and is not on dialysis. Pt states she does not utilize O2 at home. Pt is currently on 4 liters of O2. Pt is followed by Dr. Flowers and Dr. Cantu in [place]. Pt followed up with PCP Nov 06, 2024. will provide transportation home. D/C plan: Return home Next of Kin: Matthias Andrew, , phone# [phone], Jodirashid Grider, friend, phone# [phone], or Johana Carroll, phone# [phone] PCP: Dr. Trevor Suggs Address: Correct on facesheet
--- NOTE | 2024-12-24 15:05 | PD.PUPROG ---
Documentation for date of: 12/24/24 Subjective Subjective Interval history: Patient no significant change overnight and remains on stable oxygen requirements. Bedside ultrasound shows continued large single pocket of pleural fluid on the left. Will proceed with chest tube placement given suspicion for malignancy and await fluid cell analysis after procedure. She remains agreeable and consent was obtained. Site isolated using ultrasound and see separate procedure note for full details. Critical Care Note Critical care time (min.): 0 Exam Vital Signs Temp Pulse Resp BP Pulse Ox O2 Del Method O2 Flow Rate 97.2 F 77 26 H 113/75 98 Nasal Cannula 6 12/24/24 20:00 12/25/24 00:00 12/24/24 20:00 12/24/24 20:00 12/24/24 20:00 12/24/24 20:00 12/24/24 20:00 Narrative Exam GEN: Mild increased work of breathing, able to speak in short sentences HEENT: Dry mucus membranes, nasal flaring with increased speaking NECK: No JVD CVS: S1/S2+, no rubs, murmurs, gallops PULM: Absent breath sounds at both bases ABD: Soft, nontender, nondistended, bowel sounds present EXT: No clubbing or cyanosis NEURO: nonfocal on gross examination PSYCH: Patient remains cheerful and is adequate historian, appropriate mood and affect Physical Exam Completion Physical Exam Complete?: Yes Objective - Refrigerating Technician Labs 12/31/24 05:13 12/31/24 05:13 Labs: Laboratory Results - last 24 hr 12/24/24 12/24/24 05:19 15:00 WBC 17.3 H RBC 4.93 Hgb 14.1 Hct 43.9 MCV 89 MCH 28.6 MCHC 32.1 RDW Std Deviation 46.3 Plt Count 308 D Neut % (Auto) 74 Lymph % (Auto) 6 L [place] % (Auto) 10 Eos % (Auto) 9 Baso % (Auto) 1 Neut # (Auto) 12.8 H Lymph # (Auto) 1.1 [place] # (Auto) 1.7 H Eos # (Auto) 1.5 H Baso # (Auto) 0.1 Immature Gran # (Auto) 0.08 H Absolute Nucleated RBC 0.00 Immature Gran % 1 H Nucleated RBC % 0 Sodium 142 Potassium 3.8 D Chloride 104 Carbon Dioxide 26.5 Anion Gap 12 BUN 6 L Creatinine 0.7 Estim Creat Clear Calc 77.0 eGFR > 60 BUN/Creatinine Ratio 9 L Glucose 101 Calculated Osmolality 280 Calcium 9.3 Corrected Calcium 9.3 Phosphorus 4.3 Magnesium 2.0 Total Bilirubin 0.4 AST < 10 ALT < 7 L Alkaline Phosphatase 61 Total Protein 6.5 Albumin 4.4 Globulin 2.1 L Albumin/Globulin Ratio 2.1 Pleural Color Straw Pleural Appearance Clear Pleural WBC 663 Pleural RBC 0.002 Pleural Polynuclear WBC 12.9 Pleural Mononuclear WBC 87.1 Pleural Total Protein 4.0 Pleural LDH 113 Pleural Glucose 104 Pleural Amylase < 20 Assessment & Plan Additional Plan Additional Plan: Right hydropneumothorax Left pleural effusion Right hydropneumothorax not amenable to any intervention at this point Will proceed with chest tube placement today, follow-up fluid analysis and monitor output daily Will determine best option based on output with other pleurodesis may be successful versus need for PleurX catheter Her platelets and coagulation cascade remained stable Although this has been discussed in detail with the patient prior to proceeding with chest tube placement We will perform under local anesthesia only, no conscious sedation required Provider Notation Provider Notation: Although this document has been carefully reviewed, there may still be some phonetic and other typographical errors. These errors are purely grammatical due to imperfections in the software program and should not be construed in any way to compromise the substance of the patient's medical care during this visit. Thank you for the opportunity and privilege in assisting you with this patient's care and management.
[2024-12-24] MEDS: LIDOCAINE HCL 1% 20 ML VIAL INFL (16:00)
--- NOTE | 2024-12-24 16:55 | XR_ITS ---
CLINICAL INDICATION: Post Chest tube Left Lung TECHNIQUE: XR chest 1V post procedure, 12/24/2024 at 5:15 p.m. COMPARISON: Chest radiograph 12/23/2024 FINDINGS: The cardiomediastinal silhouette is within normal limits for portable technique. Interval placement of a chest tube at the inferior aspect of the left hemithorax. There is focal bend/curvature of the chest tube. The previously visualized left-sided pleural effusion has decreased in size with less pronounced compressive atelectasis as well. Persistent right-sided pleural effusion and right basilar atelectasis, as well as heterogeneous opacification in the right lung. Mildly coarse markings also noted in the left lung. No pneumothorax is seen. No acute osseous abnormality detected. Extra scoliosis is reidentified. IMPRESSION: Interval placement of a chest tube at the inferior aspect of the left hemithorax. There is focal bend/curvature of the chest tube. The previously seen left-sided pleural effusion has decreased in size with less pronounced compressive atelectasis as well. No pneumothorax detected. Persistent right-sided pleural effusion, compressive atelectasis, and coarse opacification in both lungs, greater on the right.
--- NOTE | 2024-12-24 17:00 | PC.NURSE ---
chest tube to left posterior chest CDI. Pt in visible pain. Medication ordered. Stable vitals.
[2024-12-24] MEDS: MORPHINE SULF INJ 4 MG/ML VIAL IVP (17:06)
--- NOTE | 2024-12-24 17:50 | ESOP_ITS ---
PROCEDURES: Procedure Date / Time 12/24/24 1750 Procedural Time Out Time out performed: Yes Procedure Narrative Procedure Narrative: Attending attestation: I was present for entire procedure. Patient with minimal blood loss. Follow-up chest x-ray shows chest tube in adequate position in the posterior sulcus with excellent drainage. No significant postprocedural pneumothorax. Patient given morphine for adequate pain control. She remains hemodynamically stable on serial vital monitoring. Patient left on for continuous suction to ensure adequate drainage and removal risk need for placement to in the coming days. Fluid sent for cytology exclude presence of her underlying breast cancer. Percutaneous Chest Tube Indication(s): symptomatic Pleural Effusion Informed consent obtained: from patient Time out done and verified the following: correct patient, side and site, procedure, patient position and implants and/or equipment Site cleansed with: Chlorhexidine Site: left and axillary Anesthetic used: 1% Lidocaine Catheter sized used: other (9 Fr) Seldinger technique used: yes Chest tube connected to evacuation container: yes CXR ordered post procedure: yes Pleural fluid sent for the following test(s): cell count diff, LDH, total protein, glucose, gram stain, culture and cytology EBL(ml): 5 Complications/Comments: Hand's washed prior to the procedure, patient appropriately positioned in a supine position. The area of insertion was confirmed with Ultrasound, in mid- axillary line on the left side. A sterile field was established, and the patient?s skin was prepped with an Chlorhexidine scrub. The area was draped with sterile drapes, and local anesthesia was administered using 1% lidocaine (10 cc) subcutaneously, at the insertion site and surrounding area. Needle was inserted into the intercostal space just above the rib, lidocaine around 10 cc injected after aspirating carefully, pleural space entry was confirmed with aspiration of pleural effusion, remaining lidocaine injected in the pleural space. After confirming entry into the pleural cavity, guidewire was advanced through the needle into the pleural space. Needle was removed leaving the guidewire in place, a small incision was made at the insertion site using the scalpel to allow passage of chest tube, site was dilated adequately using a dilator as well. The chest tube was threaded over the guidewire into the pleural space, the tube was secured in place with suturing and proper placement was confirmed with aspiration of fluid as appropriate. The chest tube was connected to Pleur- evac for suctioning, ongoing drainage noted, sample of pleural fluid collected for fluid analysis around 20 to 25 cc. Around 1200 cc pleural drainage noted in the Pleur-evac immediately after chest tube placement. During the whole pro cedure patient's pulse ox was monitored, patient was on supplemental oxygen. Patient's blood pressure will be checked frequently postprocedure, postprocedure chest x-ray confirms adequate positioning of chest tube. Procedure performed under the supervision of attending spring internship Dr. Trung Ramirez MD Internal Medicine PGY-2 Disclaimer: This note was dictated by speech recognition. Minor errors in weed controller may be present due to voice recognition software.
[2024-12-24] MEDS: LIDOCAINE 5% 1 PATCH TOP (18:13)
[2024-12-24 19:27] LABS: Pleural Fluid Mononuclear 87.1 %; Pleural Fluid Polynuclear 12.9 %; Pleural Fluid WBC 663 /cmm
[2024-12-24] MEDS: HYDROmorphone INJ 2 MG/ML VIAL 0.25 MG IVP (19:28)
[2024-12-24 19:39] LABS: Pleural Fluid Appearance Clear; Pleural Fluid Color Straw
[2024-12-24 19:47] LABS: Amylase,Pleural Fluid < 20 IU/L; Glucose,Pleural Fluid 104 mg/dL; LDH,Pleural Fluid 113 IU/L; Protein Total,Pleural Fluid 4.0 g/dL
[2024-12-24] MEDS: DOXYCYCLINE INJ 100 MG in SODIUM CHLORIDE 0.9% (POP) 100 ML IV (21:16)
[2024-12-24] MEDS: PIPER/TAZO 3.375 GM PREMIX 3.375 GM/50 ML BAG IV (21:45)
[2024-12-25] VITALS (13 sets, daily range): BP systolic 116–131; BP diastolic 72–88; PULSE 71–116; RESP 17–24; TEMP 36.4–37.4; O2SAT 95–99
[2024-12-25] MEDS: HYDROmorphone INJ 2 MG/ML VIAL 0.5 MG IVP ×3 (00:47→16:23)
[2024-12-25] MEDS: ALBUTEROL/IPRATROPIUM (Duoneb) RT SOL 3 ML NEBU INH ×4 (01:18→18:57)
[2024-12-25] MEDS: HEPARIN SOD INJ 5000 UNIT/ML VIAL SC ×2 (05:02→20:59)
[2024-12-25] MEDS: PIPER/TAZO 3.375 GM PREMIX 3.375 GM/50 ML BAG IV (05:02)
[2024-12-25] MEDS: LEVOTHYROXINE SODIUM 100 MCG TABLET PO (05:02)
[2024-12-25 05:43] LABS: Basophils # (Auto) 0.1 Thou/mm3 (0.0-0.2); Basophils % (Auto) 1 % (0-2.5); Eosinophils # (Auto) 3.5 Thou/mm3 (0.0-0.5); Eosinophils % (Auto) 21 % (0-10); Hematocrit 47.9 % (36.0-46.0); Hemoglobin 15.3 g/dL (12.0-16.0); Immature Granulocytes Auto 0.05 Thou/mm3 (0.00-0.00); Lymphocytes # (Auto) 1.1 Thou/mm3 (1.0-4.8); Lymphocytes % (Auto) 7 % (10-50); Mean Corpuscular HGB Conc 31.9 g/dl (31.0-37.0); Mean Corpuscular Hemoglobin 29.1 pg (25.0-35.0); Mean Corpuscular Volume 91 fL (80-100); Monocytes # (Auto) 1.4 Thou/mm3 (0.0-0.8); Monocytes % (Auto) 9 % (0-12); Neutrophils # (Auto) 10.1 Thou/mm3 (1.8-7.7); Neutrophils % (Auto) 62 % (37-80); Nucleated Red Blood Cell # 0.00 Thou/mm3 (0.00-0.00); Nucleated Red Blood Cell % 0 /100 WBC (0); Platelet Count 318 Thou/mm3 (140-440); RDW Standard Deviation 48.6 fL (36.4-46.3); Red Blood Count 5.25 Miln/mm3 (4.00-5.20); White Blood Count 16.3 Thou/mm3 (3.6-11.0)
[2024-12-25 06:14] LABS: Alanine Aminotransferase 7 U/L (10-49); Albumin, Serum 4.3 gm/dL (3.4-4.8); Albumin/Globulin Ratio 2.2 (1.2-2.2); Alkaline Phosphatase 65 U/L (46-116); Anion Gap 9 (7-16); Aspartate Amino Transferase 11 U/L (0-34); BUN/Creatinine Ratio 9 Ratio (12-20); Bilirubin,Total 0.5 mg/dL (0.3-1.2); Blood Urea Nitrogen 7 mg/dL (9-23); Calcium 9.1 mg/dL (8.3-10.6); Calcium (Corrected) 9.1 mg/dL (8.5-10.1); Carbon Dioxide 27.9 mMol/L (20.0-31.0); Chloride 103 mMol/L (98-107); Creatinine (Component) 0.8 mg/dL (0.6-1.3); Estimated Creatinine Clearance 68.8 mL/min (>60); Globulin 2.0 gm/dL (2.3-3.5); Glucose 89 mg/dL (74-106); LDH (Lactate Dehydrogenase) 158 U/L (120-246); Magnesium 1.9 mg/dL (1.6-2.6); Osmolality,Calculated 276 (275-295); Phosphorous 4.0 mg/dL (2.4-5.1); Potassium 4.4 mMol/L (3.4-5.1); Sodium 140 mMol/L (136-145); Total Protein 6.3 gm/dL (5.7-8.2); eGFR > 60 See Note
[2024-12-25 06:20] LABS: Pleural Fluid RBC 2000 /cmm
--- NOTE | 2024-12-25 08:19 | XR_ITS ---
EXAMINATION: AP chest single view TECHNIQUE: AP portable upright chest single view Date and time: December 25, 2024, 0845 hours INDICATIONS: Status post chest tube COMPARISON: November 23, 2024 FINDINGS: Chest at the lower portion of the left hemithorax Heart failure with enlarged cardiac contour and prominent vascular congestion perihilar edema Possible superimposed pneumonia in the right lung Mild to moderate right pleural fluid No pneumothorax Right axillary surgical clips Prominent osteopenia IMPRESSION: Chest tube lower left hemithorax Mild to moderate heart failure Possible superimposed pneumonia right lung Mild right pleural fluid
[2024-12-25] MEDS: DOXYCYCLINE INJ 100 MG in SODIUM CHLORIDE 0.9% (POP) 100 ML IV (09:19)
[2024-12-25] MEDS: SERTRALINE HCL 25 MG TABLET 50 MG PO (09:19)
[2024-12-25] MEDS: DOCUSATE SOD 100 MG CAPSULE PO (09:20)
--- NOTE | 2024-12-25 11:17 | PC.NURSE ---
Dr Nino in to assess pt. Updated pt and family at bedside on plan of care. Encouraged pt to spend more time up out of bed. All questions answered.
[2024-12-25] MEDS: cefTRIAXone/D5w 1gm IV premix 1 GM/50 ML BAG IV (12:21)
--- NOTE | 2024-12-25 15:10 | PD.PUPROG ---
Documentation for date of: 12/31/24 Subjective Subjective Interval history: Chest tube in place. Continues to have serous drainage with yellow fluid. Fluid analysis consistent with exudative process. Pending cytology at this time. Critical Care Note Critical care time (min.): 0 Exam Vital Signs Temp Pulse Resp BP Pulse Ox O2 Del Method O2 Flow Rate 97.1 F 92 17 119/67 94 L Nasal Cannula 3 12/31/24 20:00 12/31/24 20:00 12/31/24 20:00 12/31/24 20:00 12/31/24 20:00 12/31/24 20:00 12/31/24 20:00 Narrative Exam GEN: Mild increased work of breathing, able to speak in short sentences HEENT: Moist mucous membranes NECK: No JVD CHEST: Bilateral left-sided chest tube with serous output, continues to be greater than 200cc in 24 hours, remains on suction CVS: S1/S2+, no rubs, murmurs, gallops PULM: Absent breath sounds at both bases ABD: Soft, nontender, nondistended, bowel sounds present EXT: No clubbing or cyanosis NEURO: nonfocal on gross examination PSYCH: Patient remains cheerful and is adequate historian, appropriate mood and affect Physical Exam Completion Physical Exam Complete?: Yes Objective - Protective Signal Operator Labs 12/31/24 05:13 12/31/24 05:13 Labs: Laboratory Results - last 24 hr 12/31/24 05:13 WBC 16.5 H RBC 4.96 Hgb 14.2 Hct 43.8 MCV 88 MCH 28.6 MCHC 32.4 RDW Std Deviation 44.8 Plt Count 331 Neut % (Auto) 66 Lymph % (Auto) 6 L [place] % (Auto) 9 Eos % (Auto) 18 H Baso % (Auto) 1 Neut # (Auto) 11.0 H Lymph # (Auto) 0.9 L [place] # (Auto) 1.5 H Eos # (Auto) 2.9 H Baso # (Auto) 0.1 Immature Gran # (Auto) 0.14 H Absolute Nucleated RBC 0.00 Immature Gran % 1 H Nucleated RBC % 0 Sodium 136 Potassium 3.6 Chloride 98 Carbon Dioxide 27.6 Anion Gap 10 BUN 8 L Creatinine 0.5 L Estim Creat Clear Calc 123.7 eGFR > 60 BUN/Creatinine Ratio 16 Glucose 71 L Calculated Osmolality 268 L Calcium 8.7 Corrected Calcium 8.9 Phosphorus 3.2 Magnesium 1.7 Total Bilirubin 0.4 AST 10 ALT < 7 L Alkaline Phosphatase 69 Total Protein 5.6 L Albumin 3.8 Globulin 1.8 L Albumin/Globulin Ratio 2.1 Assessment & Plan Additional Plan Additional Plan: Right hydropneumothorax Left pleural effusion Exudative effusion Await cytology Continues to have right pleural nonamenable to removal at this point Continue to evaluate role of pleurodesis versus long-term catheter/tunneled catheter placement with PleurX Patient needs to be mobilized to use incentive spirometer aggressively, she continues to have significant pain and we will optimize with [place] and morphine as needed Provider Notation Provider Notation: Although this document has been carefully reviewed, there may still be some phonetic and other typographical errors. These errors are purely grammatical due to imperfections in the software program and should not be construed in any way to compromise the substance of the patient's medical care during this visit. Thank you for the opportunity and privilege in assisting you with this patient's care and management.
--- NOTE | 2024-12-25 15:43 | ESPR_ITS ---
<Statement entered by Nasreen Ramirez MD - 12/26/24 06:12> Patient was seen and examined at bedside. I agree on the assessment and plan on this note as documented by resident Vani Henry DO PGY1. 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 Patient presented this time with a moderate left-sided loculated pleural effusion as well, chest tube placement 12/24/2024 has been showing continual drainage total around 3.7 L, exudative effusion high suspicion of malignant effusion as well. Case was discussed with physical instructor, if patient continues to have drainage patient will likely need PleurX catheter placement. Otherwise if patient has decreased drainage will consider pleurodesis which will be performed under pulmonology supervision. Case was discussed with pathologist Dr. Norberto Pond who will expedite cytology sample to decide further course of treatment. Case will be discussed with interventional radiologist for possible right upper lobe biopsy for biochemical stratification of breast/lung cancer. Oncology following, patient's PET scan rescheduled. Case discussed with attending Dr. Srinath Noriega MD PGY-2 Documentation for date of: 12/25/24 Subjective Subjective Interval history: Patient's status post percutaneous chest tube placement (12/24). Patient drained a total of 3.7 L. Clear pleural followed, pleural WBC 663, pleural LDH 113, pleural total protein 4.0, pleural glucose 104. Considering, serum LDH 158, serum total protein 6.3, patient has exudative pleural effusion likely secondary to malignancy. Gram stain of pleural fluid is pending. Discussed with pathologist Dr. Satly Thornton, to expediate cytology sample, result likely coming tomorrow. Also discussed with IR with possible biopsy of right lung mass. Today, patient feels more comfortable breathing. Endorses pain around chest tube insertion site. No Overnight events. Labs reviewed and patient examined at the bedside. Denies chest pain, palpation, abdominal pain, N/V, fevers or chills. Exam Vital Signs Temp Pulse Resp BP Pulse Ox O2 Del Method O2 Flow Rate 98.7 F 78 20 121/75 96 Nasal Cannula 5 12/25/24 11:52 12/25/24 13:24 12/25/24 13:24 12/25/24 11:52 12/25/24 13:24 12/25/24 11:52 12/25/24 13:24 Narrative Exam General: No acute distress, well nourished, AAO x3 Eye: Normal conjunctiva, no scleral icterus HENT: Normocephalic, atraumatic, hearing intact to conversation at normal volume, moist oral mucosa Neck: Supple, non-tender, no JVD, no lymphadenopathy Lungs: Symmetric chest rise, No wheezing, rhonchi, crackles, Decreased breathe sounds in bilateral lung bases. Heart: Peripheral pulses intact bilaterally, Regular Rate and Rhythm. Abdomen: Soft, non-tender, non-distended, no palpable masses Musculoskeletal: Normal range of motion and strength, No cyanosis or edema, No visible joint swelling Skin: Skin is warm, dry, no rashes or lesions. Psychiatric: Cooperative, appropriate mood and affect, Awake and alert, not agitated Neuro: Cranial nerves II-XII grossly intact. Strength 5/5 throughout. Sensations intact to light touch. Objective Labs 12/26/24 05:33 12/26/24 05:33 Labs: Laboratory Results - last 24 hr 12/24/24 12/25/24 15:00 05:02 WBC 16.3 H RBC 5.25 H Hgb 15.3 Hct 47.9 H MCV 91 MCH 29.1 MCHC 31.9 RDW Std Deviation 48.6 H Plt Count 318 Neut % (Auto) 62 Lymph % (Auto) 7 L [place] % (Auto) 9 Eos % (Auto) 21 H Baso % (Auto) 1 Neut # (Auto) 10.1 H Lymph # (Auto) 1.1 [place] # (Auto) 1.4 H Eos # (Auto) 3.5 H Baso # (Auto) 0.1 Immature Gran # (Auto) 0.05 H Absolute Nucleated RBC 0.00 Immature Gran % 0 Nucleated RBC % 0 Sodium 140 Potassium 4.4 D Chloride 103 Carbon Dioxide 27.9 Anion Gap 9 BUN 7 L Creatinine 0.8 Estim Creat Clear Calc 68.8 eGFR > 60 BUN/Creatinine Ratio 9 L Glucose 89 Calculated Osmolality 276 Calcium 9.1 Corrected Calcium 9.1 Phosphorus 4.0 Magnesium 1.9 Total Bilirubin 0.5 AST 11 ALT 7 L Alkaline Phosphatase 65 Lactate Dehydrogenase 158 Total Protein 6.3 Albumin 4.3 Globulin 2.0 L Albumin/Globulin Ratio 2.2 Pleural Color Straw Pleural Appearance Clear Pleural WBC 663 Pleural RBC 2000 Pleural Polynuclear WBC 12.9 Pleural Mononuclear WBC 87.1 Pleural Total Protein 4.0 Pleural LDH 113 Pleural Glucose 104 Pleural Amylase < 20 Quality Measures Quality Measures none Advance care planning discussed with:: patient Assessment & Plan Assessment Current Active Medications: Generic Name Dose Route Start Last Admin Trade Name Freq PRN Reason Stop Dose Admin Acetaminophen 650 mg 12/23/24 05:49 Acetaminophen 325 Mg Tablet PO 01/22/25 05:48 Q6H PRN Fever >100.4 or pain 1-3 Hydrocodone Bitart/Acetaminophen 1 tab 12/23/24 05:54 12/25/24 12:54 Hydrocodone/Apap 10/325 Tab PO 12/28/24 05:53 1 tab Q4H PRN Administration PAIN SCALE 4-6 (Moderate Albuterol/Ipratropium 3 ml 12/23/24 07:00 12/25/24 13:24 Albuterol/Ipratropium (Duoneb) Rt Zo 3 Ml Nebu INH 01/22/25 06:59 3 ml Q6HRRT CHAPARRO Administration Docusate Sodium 100 mg 12/23/24 09:00 12/25/24 09:20 Docusate Sod 100 Mg Capsule PO 01/22/25 08:59 100 mg QDAY CHAPARRO Administration Protocol Heparin Sodium (Porcine) 5,000 unit 12/25/24 21:00 Heparin Sod Inj 5000 Unit/Ml Vial SC 01/08/25 20:59 Q12HR CHAPARRO Hydromorphone HCl 0.5 mg 12/24/24 19:06 12/25/24 11:11 Hydromorphone Inj 2 Mg/Ml Vial IVP 12/29/24 19:05 0.5 mg Q4HR PRN Administration PAIN SCALE 7-10 (Severe Ceftriaxone Sodium/Dextrose 1 gm in 50 mls @ 100 mls/hr 12/25/24 11:40 12/25/24 12:21 Rocephin/D5w 1gm Iv Premix IV 12/29/24 11:39 100 mls/hr QDAY CHAPARRO Administration Levothyroxine Sodium 100 mcg 12/25/24 06:00 12/25/24 05:02 Levothyroxine Sodium 100 Mcg Tablet PO 01/24/25 05:59 100 mcg ACBR CHAPARRO Administration Naloxone HCl 2 mg 12/24/24 20:29 Naloxone Inj 0.4 Mg/Ml Vial IV Q3M PRN OPIATE REVERSAL Pantoprazole Sodium 40 mg 12/23/24 09:00 12/25/24 09:18 Pantoprazole Inj 40 Mg Vial IVP 01/22/25 08:59 40 mg QDAY CHAPARRO Administration Sertraline HCl 50 mg 12/23/24 09:00 12/25/24 09:19 Sertraline Hcl 25 Mg Tablet PO 01/22/25 08:59 50 mg QDAY CHAPARRO Administration Plan Mrs. Andrew is a 64-year-old female past medical significant of asthma, breast cancer s/p mastectomy 2017, thyroid cancer s/p thyroidectomy 2021 and radiation therapy, recently admitted for acute hypoxic respiratory failure secondary to right large pleural effusion discharged 11/20 presenting today 12/23 with similar complaint of SOB. #Acute hypoxic respiratory failure 03/25 #Left sided loculated pleural effusion 03/25 #Suspected malignant effusion, metastatic breast cancer #Hydropneumothorax right lung #Status post thoracentesis 11/07/24 and 11/08/24 #Asthma, by history #Stage IV breast cancer On initial presentation patient speaking in short sentences oxygen saturation 86% on 5L nasal cannula. Recent admission of similar presentation revealed exudative effusion from malignant metastases. Patient established with oncology outpatient, was transferred out for decortication however no intervention was done because of stage IV breast cancer. Case discussed with physical instructor, lung ultrasound performed at bedside patient has loculated pleural effusion not enough for thoracentesis, will reassess in a.m. possibly may need chest tube. -Received Chest tube placement for pleural effusion in left lung (12/24/2024) -12/25: Patient drained a total of 3.7 L. Clear pleural followed, pleural WBC 663, pleural LDH 113, pleural total protein 4.0, pleural glucose 104. Considering, serum LDH 158, serum total protein 6.3, patient has exudative pleural effusion likely secondary to malignancy. Plan: -Continue DuoNebs q6h -Supplemental O2, titrate as tolerated to maintain SpO2 >93% -Incentive spirometry -Pain control with [place] 5 every Q4HR PRN -Morphine 2mg Q4HR PRN -Pulmonology consulted, appreciate recommendations. -Oncology consulted, appreciate recommendations -Goals of care discussion in a.m. -Gram stain of pleural fluid is pending. -Discussed with pathologist Dr. Salty Thornton, to expediate cytology sample, result likely coming tomorrow. Also discussed with IR with possible biopsy of right lung mass. #Hypothyroidism #Hx thyroid cancer s/p thyroidectomy 2021 No current active symptoms of hyperthyroid currently. TSH >100 free T4 0.86 Free T3 1.7 Plan: -Increased levothyroxine dosage from 75 mcg/day to 100mcg/day. -Outpatient titration of medication #Hx of pressure injury, coccyx, stage III Patient reports frequent back pain and it was noted that the patient had a possible pressure injury and her coccyx area. Per last admission, the wound staging is stage III without any drainage or order. Plan: -Referral to wound care -Continue to monitor #Depression - Continue home dose sertraline Health Maintenance: Code status: Full code DVT prophylaxis: SCDs GI prophylaxis: Protonix 40mg IVP QD Diet: Cardiac Mccallum: None Lines: PIV Supplemental O2: Nasal cannula Disposition: Tele Assessment and plan discussed with my attending physician Dr. Sanon and Dr. Ramirez (PGY-2) Dr. Henry (PGY-1) - Internal medicine resident Attending Provider Attestation/Addendum I have discussed and was present for the essential components of the history, physical examination, diagnosis, and treatment plan with the resident. I agree with the patient's care as documented by the resident and amended herein by me. Andrzej Sanon DO. Although this document has been carefully reviewed, there may still be some phonetic and other typographical errors. These errors are purely grammatical due to imperfections in the software program and should not be construed in any way to compromise the substance of the patient's medical care during this visit.
--- NOTE | 2024-12-25 21:30 | EKG_ITS ---
[facility] Test Date: 2024-12-25 Pat Name: LINWOOD CARROLL [facility] Gender: Female Donor Processor: ECOBN1 : 1960 Requested By: David Sims Order Number: [id number] Reading MD: David Sims Measurements Intervals [place] Rate: 95 P: 36 IL: 131 QRS: -37 QRSD: 91 T: 30 QT: 351 QTc: 442 Interpretive Statements SINUS RHYTHM WITH OCCASIONAL VENTRICULAR PREMATURE COMPLEXES MARKED LEFT AXIS DEVIATION PATTERN CONSISTENT WITH PULMONARY DISEASE NONSPECIFIC T-WAVE ABNORMALITY Compared to ECG 12/23/2024 01:16:08 Ventricular premature complex(es) now present Left-axis deviation now present T-wave abnormality now present Supraventricular rhythm no longer present Myocardial infarct finding no longer present /store/S0/[id number]/ecg/[id number].pdf
[2024-12-26] VITALS (12 sets, daily range): BP systolic 91–133; BP diastolic 57–78; PULSE 71–102; RESP 16–22; TEMP 36.3–36.6; O2SAT 91–99; BMI 33.2
[2024-12-26] MEDS: ALBUTEROL/IPRATROPIUM (Duoneb) RT SOL 3 ML NEBU INH ×4 (00:09→19:41)
[2024-12-26 05:51] LABS: Basophils # (Auto) 0.1 Thou/mm3 (0.0-0.2); Basophils % (Auto) 1 % (0-2.5); Eosinophils # (Auto) 2.7 Thou/mm3 (0.0-0.5); Eosinophils % (Auto) 22 % (0-10); Hematocrit 45.5 % (36.0-46.0); Hemoglobin 14.5 g/dL (12.0-16.0); Immature Granulocytes Auto 0.04 Thou/mm3 (0.00-0.00); Lymphocytes # (Auto) 0.8 Thou/mm3 (1.0-4.8); Lymphocytes % (Auto) 6 % (10-50); Mean Corpuscular HGB Conc 31.9 g/dl (31.0-37.0); Mean Corpuscular Hemoglobin 28.4 pg (25.0-35.0); Mean Corpuscular Volume 89 fL (80-100); Monocytes # (Auto) 1.1 Thou/mm3 (0.0-0.8); Monocytes % (Auto) 9 % (0-12); Neutrophils # (Auto) 7.6 Thou/mm3 (1.8-7.7); Neutrophils % (Auto) 62 % (37-80); Nucleated Red Blood Cell # 0.00 Thou/mm3 (0.00-0.00); Nucleated Red Blood Cell % 0 /100 WBC (0); Platelet Count 277 Thou/mm3 (140-440); RDW Standard Deviation 46.5 fL (36.4-46.3); Red Blood Count 5.10 Miln/mm3 (4.00-5.20); White Blood Count 12.3 Thou/mm3 (3.6-11.0)
[2024-12-26 06:34] LABS: Alanine Aminotransferase < 7 U/L (10-49); Albumin, Serum 4.1 gm/dL (3.4-4.8); Albumin/Globulin Ratio 2.3 (1.2-2.2); Alkaline Phosphatase 65 U/L (46-116); Anion Gap 10 (7-16); Aspartate Amino Transferase 10 U/L (0-34); BUN/Creatinine Ratio 17 Ratio (12-20); Bilirubin,Total 0.5 mg/dL (0.3-1.2); Blood Urea Nitrogen 10 mg/dL (9-23); Calcium 8.9 mg/dL (8.3-10.6); Calcium (Corrected) 8.9 mg/dL (8.5-10.1); Carbon Dioxide 26.0 mMol/L (20.0-31.0); Chloride 102 mMol/L (98-107); Creatinine (Component) 0.6 mg/dL (0.6-1.3); Estimated Creatinine Clearance 91.7 mL/min (>60); Globulin 1.8 gm/dL (2.3-3.5); Glucose 98 mg/dL (74-106); Magnesium 1.7 mg/dL (1.6-2.6); Osmolality,Calculated 274 (275-295); Phosphorous 3.9 mg/dL (2.4-5.1); Potassium 3.8 mMol/L (3.4-5.1); Sodium 138 mMol/L (136-145); Total Protein 5.9 gm/dL (5.7-8.2); eGFR > 60 See Note
[2024-12-26] MEDS: DOCUSATE SOD 100 MG CAPSULE PO (08:28)
[2024-12-26] MEDS: cefTRIAXone/D5w 1gm IV premix 1 GM/50 ML BAG IV (08:28)
[2024-12-26] MEDS: HEPARIN SOD INJ 5000 UNIT/ML VIAL SC (08:29)
[2024-12-26] MEDS: SERTRALINE HCL 25 MG TABLET 50 MG PO (08:29)
--- NOTE | 2024-12-26 09:20 | PC.SS ---
Follow up note: Still has chest tube. Monitor and drain chest tube. Pt will return home upon dc.
[2024-12-26] MEDS: Magnesium Sulfate 2 GM Ivpb 2 GM/50 ML BAG IV (09:59)
[2024-12-26] MEDS: MAGNESIUM OXIDE 400 MG TABLET PO (09:59)
--- NOTE | 2024-12-26 10:18 | CHAP ---
Patient was visited by a Spiritual Care Volunteer on 12/25/2024 between 0900 and 1140 and received comfort, encouragement and/or prayer.
--- NOTE | 2024-12-26 14:12 | ESPR_ITS ---
<Statement entered by Wolf Prather MD - 12/26/24 21:46> Patient seen and examined at bedside. I discussed and supervised with the summer intern physician who took care of this patient. I personally saw and examined the patient. I agree with most of the assessment and plan. Plan of care discussed with attending Dr. Sanon. 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 IR deferred planned right upper lobe lung biopsy after identifying consolidation surrounding the lesion on imaging. Instead IR recommended proceeding with a CT guided biopsy of the left apical lung nodule. Oncology was informed and agreed with the revised plan. The right lung biopsy order was cancelled, and a new order for CT-guided left lung biopsy was placed. Placed heparin on hold for the biopsy. Will continue to monitor for dainage. A total of 410ml has been drained this morning from left percutaneous chest tube. No Overnight events. Labs reviewed and patient examined at the bedside. Denies chest pain, palpation,abdominal pain, N/V, fevers or chills. Exam Vital Signs Temp Pulse Resp BP Pulse Ox O2 Del Method O2 Flow Rate 97.6 F 94 18 110/62 97 Room Air 3 12/26/24 12:00 12/26/24 13:11 12/26/24 13:11 12/26/24 12:00 12/26/24 13:11 12/26/24 12:00 12/26/24 13:11 Narrative Exam General: No acute distress, well nourished, AAO x3 Eye: Normal conjunctiva, no scleral icterus HENT: Normocephalic, atraumatic, hearing intact to conversation at normal volume, moist oral mucosa Neck: Supple, non-tender, no JVD, no lymphadenopathy Lungs: Symmetric chest rise, No wheezing, rhonchi, crackles, Decreased breathe sounds in bilateral lung bases. Heart: Peripheral pulses intact bilaterally, Regular Rate and Rhythm. Abdomen: Soft, non-tender, non-distended, no palpable masses Musculoskeletal: Normal range of motion and strength, No cyanosis or edema, No visible joint swelling Skin: Skin is warm, dry, no rashes or lesions. Psychiatric: Cooperative, appropriate mood and affect, Awake and alert, not agitated Neuro: Cranial nerves II-XII grossly intact. Strength 5/5 throughout. Sensations intact to light touch. Objective Labs 12/26/24 05:33 12/26/24 05:33 Labs: Laboratory Results - last 24 hr 12/26/24 05:33 WBC 12.3 H RBC 5.10 Hgb 14.5 Hct 45.5 MCV 89 MCH 28.4 MCHC 31.9 RDW Std Deviation 46.5 H Plt Count 277 D Neut % (Auto) 62 Lymph % (Auto) 6 L [place] % (Auto) 9 Eos % (Auto) 22 H Baso % (Auto) 1 Neut # (Auto) 7.6 Lymph # (Auto) 0.8 L [place] # (Auto) 1.1 H Eos # (Auto) 2.7 H Baso # (Auto) 0.1 Immature Gran # (Auto) 0.04 H Absolute Nucleated RBC 0.00 Immature Gran % 0 Nucleated RBC % 0 Sodium 138 Potassium 3.8 D Chloride 102 Carbon Dioxide 26.0 Anion Gap 10 BUN 10 Creatinine 0.6 Estim Creat Clear Calc 91.7 eGFR > 60 BUN/Creatinine Ratio 17 Glucose 98 Calculated Osmolality 274 L Calcium 8.9 Corrected Calcium 8.9 Phosphorus 3.9 Magnesium 1.7 Total Bilirubin 0.5 AST 10 ALT < 7 L Alkaline Phosphatase 65 Total Protein 5.9 Albumin 4.1 Globulin 1.8 L Albumin/Globulin Ratio 2.3 H Quality Measures Quality Measures VTE prophylaxis Advance care planning discussed with:: patient Assessment & Plan Assessment Current Active Medications: Generic Name Dose Route Start Last Admin Trade Name [place] PRN Reason Stop Dose Admin Acetaminophen 650 mg 12/23/24 05:49 Acetaminophen 325 Mg Tablet PO 01/22/25 05:48 Q6H PRN Fever >100.4 or pain 1-3 Hydrocodone Bitart/Acetaminophen 1 tab 12/23/24 05:54 12/26/24 11:09 Hydrocodone/Apap 10/325 Tab PO 12/28/24 05:53 1 tab Q4H PRN Administration PAIN SCALE 4-6 (Moderate Albuterol/Ipratropium 3 ml 12/23/24 07:00 12/26/24 13:09 Albuterol/Ipratropium (Duoneb) Rt Zo 3 Ml Nebu INH 01/22/25 06:59 3 ml Q6HRRT CHAPARRO Administration Docusate Sodium 100 mg 12/23/24 09:00 12/26/24 08:28 Docusate Sod 100 Mg Capsule PO 01/22/25 08:59 100 mg QDAY CHAPARRO Administration Protocol Heparin Sodium (Porcine) 5,000 unit 12/25/24 21:00 12/26/24 08:29 Heparin Sod Inj 5000 Unit/Ml Vial SC 01/08/25 20:59 5,000 unit Q12HR CHAPARRO Administration Hydromorphone HCl 0.5 mg 12/24/24 19:06 12/25/24 16:23 Hydromorphone Inj 2 Mg/Ml Vial IVP 12/29/24 19:05 0.5 mg Q4HR PRN Administration PAIN SCALE 7-10 (Severe Ceftriaxone Sodium/Dextrose 1 gm in 50 mls @ 100 mls/hr 12/25/24 11:40 12/26/24 08:28 Rocephin/D5w 1gm Iv Premix IV 12/29/24 11:39 100 mls/hr QDAY CHAPARRO Administration Levothyroxine Sodium 100 mcg 12/25/24 06:00 12/26/24 06:08 Levothyroxine Sodium 100 Mcg Tablet PO 01/24/25 05:59 100 mcg ACBR CHAPARRO Administration Naloxone HCl 2 mg 12/24/24 20:29 Naloxone Inj 0.4 Mg/Ml Vial IV Q3M PRN OPIATE REVERSAL Ondansetron HCl 4 mg 12/25/24 21:56 Ondansetron Inj 2 Mg/Ml Inj 2 Ml IVP 01/24/25 21:55 Q6HR PRN NAUSEA OR VOMITING Protocol Pantoprazole Sodium 40 mg 12/23/24 09:00 12/26/24 08:29 Pantoprazole Inj 40 Mg Vial IVP 01/22/25 08:59 40 mg QDAY CHAPARRO Administration Sertraline HCl 50 mg 12/23/24 09:00 12/26/24 08:29 Sertraline Hcl 25 Mg Tablet PO 01/22/25 08:59 50 mg QDAY CHAPARRO Administration Plan Mrs. Andrew is a 64-year-old female past medical significant of asthma, breast cancer s/p mastectomy 2017, thyroid cancer s/p thyroidectomy 2021 and radiation therapy, recently admitted for acute hypoxic respiratory failure secondary to right large pleural effusion discharged 11/20 presenting today 12/23 with similar complaint of SOB. #Acute hypoxic respiratory failure 03/25 #Left sided loculated pleural effusion 03/25 #Suspected malignant effusion, metastatic breast cancer #Hydropneumothorax right lung #Status post thoracentesis 11/07/24 and 11/08/24 #Asthma, by history #Stage IV breast cancer On initial presentation patient speaking in short sentences oxygen saturation 86% on 5L nasal cannula. Recent admission of similar presentation revealed exudative effusion from malignant metastases. Patient established with oncology outpatient, was transferred out for decortication however no intervention was done because of stage IV breast cancer. Case discussed with freight elevator operator, lung ultrasound performed at bedside patient has loculated pleural effusion not enough for thoracentesis, will reassess in a.m. possibly may need chest tube. -Received Chest tube placement for pleural effusion in left lung (12/24/2024) -12/25: Patient drained a total of 3.7 L. Clear pleural followed, pleural WBC 663, pleural LDH 113, pleural total protein 4.0, pleural glucose 104. Considering, serum LDH 158, serum total protein 6.3, patient has exudative pleural effusion likely secondary to malignancy. -12/26: A total of 410ml has been drained this morning from left percutaneous chest tube. 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 -IR deferred planned right upper lobe lung biopsy after identifying consolidation surrounding the lesion on imaging. Instead IR recommended proceeding with a CT guided biopsy of the left apical lung nodule. Oncology was informed and agreed with the revised plan. Plan: -Continue DuoNebs q6h -Supplemental O2, titrate as tolerated to maintain SpO2 >93% -Incentive spirometry -Pain control with [place] 5 every Q4HR PRN -Morphine 2mg Q4HR PRN -Pulmonology consulted, appreciate recommendations. -Oncology consulted, appreciate recommendations -Gram stain of pleural fluid is pending. -Order for CT-guided left lung biopsy was placed. Placed heparin on hold for the biopsy, the right lung biopsy order was cancelled #Hypothyroidism #Hx thyroid cancer s/p thyroidectomy 2021 No current active symptoms of hyperthyroid currently. TSH >100 free T4 0.86 Free T3 1.7 Plan: -Increased levothyroxine dosage from 75 mcg/day to 100mcg/day. -Outpatient titration of medication #Hx of pressure injury, coccyx, stage III Patient reports frequent back pain and it was noted that the patient had a possible pressure injury and her coccyx area. Per last admission, the wound staging is stage III without any drainage or order. Plan: -Referral to wound care -Continue to monitor #Depression - Continue home dose sertraline Health Maintenance: Code status: Full code DVT prophylaxis: SCDs GI prophylaxis: Protonix 40mg IVP QD Diet: Cardiac Mccallum: None Lines: PIV Supplemental O2: Nasal cannula Disposition: Tele Assessment and plan discussed with my attending physician Dr. Sanon and Dr. Prather (PGY-2) Dr. Henry (PGY-1) - Internal medicine resident Attending Provider Attestation/Addendum I have discussed and was present for the essential components of the history, physical examination, diagnosis, and treatment plan with the resident. I agree with the patient's care as documented by the resident and amended herein by me. Andrzej Sanon DO. Although this document has been carefully reviewed, there may still be some phonetic and other typographical errors. These errors are purely grammatical due to imperfections in the software program and should not be construed in any way to compromise the substance of the patient's medical care during this visit.
--- NOTE | 2024-12-26 15:03 | PC.NURSE ---
[facility] order for lung biopsy, reviewed with Dr. Enriquez. he is recommending to biopsy a different nodule. Called Dr. Henry made him aware. No new orders at this time.
--- NOTE | 2024-12-26 17:20 | ESPR_ITS ---
Documentation for date of: 12/26/24 Subjective Subjective Interval history: Chest tube in place. Continues to have serous drainage with yellow fluid. Fluid analysis consistent with exudative process. Pending cytology at this time. Critical Care Note Critical care time (min.): 0 Exam Vital Signs Temp Pulse Resp BP Pulse Ox O2 Del Method O2 Flow Rate 97.1 F 92 17 119/67 94 L Nasal Cannula 3 12/31/24 20:00 12/31/24 20:00 12/31/24 20:00 12/31/24 20:00 12/31/24 20:00 12/31/24 20:00 12/31/24 20:00 Narrative Exam GEN: Able to speak in full sentences HEENT: Moist mucous membranes NECK: No JVD CHEST: Lateral left-sided chest tube with serous output, continues to be greater than 200cc in 24 hours, remains on suction CVS: S1/S2+, no rubs, murmurs, gallops PULM: Absent breath sounds at both bases ABD: Soft, nontender, nondistended, bowel sounds present EXT: No clubbing or cyanosis NEURO: nonfocal on gross examination PSYCH: Patient remains cheerful and is adequate historian, appropriate mood and affect Physical Exam Completion Physical Exam Complete?: Yes 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 12/31/24 05:13 12/31/24 05:13 Labs: Laboratory Results - last 24 hr 12/31/24 05:13 WBC 16.5 H RBC 4.96 Hgb 14.2 Hct 43.8 MCV 88 MCH 28.6 MCHC 32.4 RDW Std Deviation 44.8 Plt Count 331 Neut % (Auto) 66 Lymph % (Auto) 6 L [place] % (Auto) 9 Eos % (Auto) 18 H Baso % (Auto) 1 Neut # (Auto) 11.0 H Lymph # (Auto) 0.9 L [place] # (Auto) 1.5 H Eos # (Auto) 2.9 H Baso # (Auto) 0.1 Immature Gran # (Auto) 0.14 H Absolute Nucleated RBC 0.00 Immature Gran % 1 H Nucleated RBC % 0 Sodium 136 Potassium 3.6 Chloride 98 Carbon Dioxide 27.6 Anion Gap 10 BUN 8 L Creatinine 0.5 L Estim Creat Clear Calc 123.7 eGFR > 60 BUN/Creatinine Ratio 16 Glucose 71 L Calculated Osmolality 268 L Calcium 8.7 Corrected Calcium 8.9 Phosphorus 3.2 Magnesium 1.7 Total Bilirubin 0.4 AST 10 ALT < 7 L Alkaline Phosphatase 69 Total Protein 5.6 L Albumin 3.8 Globulin 1.8 L Albumin/Globulin Ratio 2.1 Assessment & Plan Additional Plan Additional Plan: Right hydropneumothorax Left pleural effusion Exudative effusion Cytology consistent with malignancy Continue to drain over 200 cc in 24 hours, not amenable to removal of chest tube Can consider removal of suction as tolerated Patient counseled on importance of mobilization prevent atelectasis and maintain complete recruitment of the left lung Patient's oxygen requirements continue to improve slowly Pain slightly better, continue morphine and [place] as tolerated Will determine potential for pleurodesis depending on H&H available, preferentially would like talc over doxycycline Alternatively can consider placement of PleurX catheter Provider Notation Provider Notation: Although this document has been carefully reviewed, there may still be some phonetic and other typographical errors. These errors are purely grammatical due to imperfections in the software program and should not be construed in any way to compromise the substance of the patient's medical care during this visit. Thank you for the opportunity and privilege in assisting you with this patient's care and management.
[2024-12-26] MEDS: BENZONATATE 100 MG CAPSULE PO (18:38)
[2024-12-27] VITALS (25 sets, daily range): BP systolic 98–137; BP diastolic 50–85; PULSE 61–113; RESP 16–86; TEMP 36.1–36.6; O2SAT 93–100; BMI 32.2; BMI 24.4
[2024-12-27] MEDS: ALBUTEROL/IPRATROPIUM (Duoneb) RT SOL 3 ML NEBU INH ×3 (01:08→19:02)
[2024-12-27 06:32] LABS: Basophils # (Auto) 0.1 Thou/mm3 (0.0-0.2); Basophils % (Auto) 1 % (0-2.5); Eosinophils # (Auto) 2.8 Thou/mm3 (0.0-0.5); Eosinophils % (Auto) 23 % (0-10); Hematocrit 43.2 % (36.0-46.0); Hemoglobin 14.0 g/dL (12.0-16.0); Immature Granulocytes Auto 0.04 Thou/mm3 (0.00-0.00); Lymphocytes # (Auto) 0.9 Thou/mm3 (1.0-4.8); Lymphocytes % (Auto) 8 % (10-50); Mean Corpuscular HGB Conc 32.4 g/dl (31.0-37.0); Mean Corpuscular Hemoglobin 29.0 pg (25.0-35.0); Mean Corpuscular Volume 89 fL (80-100); Monocytes # (Auto) 1.1 Thou/mm3 (0.0-0.8); Monocytes % (Auto) 9 % (0-12); Neutrophils # (Auto) 7.5 Thou/mm3 (1.8-7.7); Neutrophils % (Auto) 61 % (37-80); Nucleated Red Blood Cell # 0.00 Thou/mm3 (0.00-0.00); Nucleated Red Blood Cell % 0 /100 WBC (0); Platelet Count 279 Thou/mm3 (140-440); RDW Standard Deviation 46.5 fL (36.4-46.3); Red Blood Count 4.83 Miln/mm3 (4.00-5.20); White Blood Count 12.4 Thou/mm3 (3.6-11.0)
[2024-12-27 07:08] LABS: Alanine Aminotransferase < 7 U/L (10-49); Albumin, Serum 3.8 gm/dL (3.4-4.8); Albumin/Globulin Ratio 2.2 (1.2-2.2); Alkaline Phosphatase 64 U/L (46-116); Anion Gap 10 (7-16); Aspartate Amino Transferase 10 U/L (0-34); BUN/Creatinine Ratio 13 Ratio (12-20); Bilirubin,Total 0.4 mg/dL (0.3-1.2); Blood Urea Nitrogen 8 mg/dL (9-23); Calcium 8.2 mg/dL (8.3-10.6); Calcium (Corrected) 8.4 mg/dL (8.5-10.1); Carbon Dioxide 26.4 mMol/L (20.0-31.0); Chloride 102 mMol/L (98-107); Creatinine (Component) 0.6 mg/dL (0.6-1.3); Estimated Creatinine Clearance 90.3 mL/min (>60); Globulin 1.7 gm/dL (2.3-3.5); Glucose 76 mg/dL (74-106); Magnesium 2.0 mg/dL (1.6-2.6); Osmolality,Calculated 272 (275-295); Phosphorous 3.0 mg/dL (2.4-5.1); Potassium 4.0 mMol/L (3.4-5.1); Sodium 138 mMol/L (136-145); Total Protein 5.5 gm/dL (5.7-8.2); eGFR > 60 See Note
--- NOTE | 2024-12-27 08:02 | XR_ITS ---
EXAM: CT-guided left upper lobe lung biopsy INDICATION: Lung mass DATE: 12/27/2024, 2:25 p.m. COMPARISON: 12/23/2024 CTDI: 96.6 DLP: 1730 PROCEDURE: After discussion of risks and benefits informed consent was obtained. The patient was brought to the CT scanner and placed in the supine position. Preliminary noncontrast enhanced CT demonstrates a 1.5 cm left upper lobe pulmonary mass. This was targeted for biopsy. The overlying skin was cleaned and draped in normal sterile surgical fashion. Conscious sedation was begun with direct continuous nursing supervision. 10 cc of 1% lidocaine was used for local anesthesia. Using CT guidance an 18-gauge needle biopsy system was sequentially advanced into the targeted mass. Multiple core biopsy samples were obtained and given to pathology for analysis who deemed the samples adequate at the time of the procedure.. The needle was withdrawn. Hemostasis was achieved. The access site was covered with a sterile dressing. Postbiopsy CT was performed which demonstrated a small, less than 5% pneumothorax. Patient was kept on the table for 15 minutes. Patient was rescanned. Again small less than 5% left pneumothorax was seen without evidence of interval progression.. The patient tolerated the procedure well and transferred back to the holding area for post procedural observation. IMPRESSION: Successful CT-guided left upper lobe lung mass biopsy under conscious sedation as described above. Small, less than 5% postprocedural pneumothorax without evidence of progression. Patient will be followed with serial x-rays.
--- NOTE | 2024-12-27 08:24 | XR_ITS ---
EXAMINATION: AP chest single view TECHNIQUE: AP portable semiupright chest single view Date and time: December 27, 2024, 0856 hours, comparison December 25, 2024 INDICATIONS: Chest tube placement history FINDINGS: A tube overlies the left hemithorax Mild to moderate heart failure pattern with enlarged cardiac contour, ectatic enlarged thoracic aorta, pulmonary edema, superimposed bilateral pneumonia not excluded Right axillary surgical clips Prominent osteopenia No pneumothorax IMPRESSION: A tube overlies the left hemithorax inferiorly Mild to moderate heart failure No pneumothorax
[2024-12-27 08:34] LABS: INR 1.0 (0.9-1.3); Partial Thromboplastin Time 31.1 Seconds (22.0-36.0); Prothrombin Time 10.7 Seconds (9.0-12.2)
[2024-12-27] MEDS: cefTRIAXone/D5w 1gm IV premix 1 GM/50 ML BAG IV (09:02)
--- NOTE | 2024-12-27 09:09 | ESPR_ITS ---
<Statement entered by Nasreen Ramirez MD - 12/27/24 17:05> Patient was seen and examined at bedside. I agree on the assessment and plan on this note as documented by resident Vani Henry DO PGY1. 64-year-old female with past medical history as below, admitted for complicated pleural effusion, had chest tube placed left lung, scheduled for CT-guided left lung biopsy today with interventional radiology. Chest tube output has been decreasing, discussed with pulmonology patient will benefit from pleurodesis, discussed with pharmacist regarding ordering talc however talc is not available at the facility. Will continue to follow-up with pulmonology, oncology following as well. Case discussed with attending Dr. Srinath Noriega MD PGY-2 Documentation for date of: 12/27/24 Subjective Subjective Interval history: Planned to do left lung apical biopsy today. Left percutaneous chest tube drainage of 120ml. Possible pleurodesis, however will monitor patient's status after left lung biopsy. Holding Heparin and NPO until biopsy No Overnight events. Labs reviewed and patient examined at the bedside. Denies chest pain, palpation, abdominal pain, N/V, fevers or chills. Exam Vital Signs Temp Pulse Resp BP Pulse Ox O2 Del Method O2 Flow Rate 97.4 F 83 18 108/85 H 95 Nasal Cannula 2 12/27/24 08:00 12/27/24 08:00 12/27/24 08:00 12/27/24 08:00 12/27/24 08:00 12/27/24 08:00 12/27/24 08:00 Narrative Exam General: No acute distress, well nourished, AAO x3 Eye: Normal conjunctiva, no scleral icterus HENT: Normocephalic, atraumatic, hearing intact to conversation at normal volume, moist oral mucosa Neck: Supple, non-tender, no JVD, no lymphadenopathy Lungs: Symmetric chest rise, No wheezing, rhonchi, crackles, Decreased breathe sounds in bilateral lung bases. Heart: Peripheral pulses intact bilaterally, Regular Rate and Rhythm. Abdomen: Soft, non-tender, non-distended, no palpable masses Musculoskeletal: Normal range of motion and strength, No cyanosis or edema, No visible joint swelling Skin: Skin is warm, dry, no rashes or lesions. Psychiatric: Cooperative, appropriate mood and affect, Awake and alert, not agitated Neuro: Cranial nerves II-XII grossly intact. Strength 5/5 throughout. Sensations intact to light touch. Objective Labs 12/27/24 04:54 12/27/24 04:54 Labs: Laboratory Results - last 24 hr 12/27/24 04:54 WBC 12.4 H RBC 4.83 Hgb 14.0 Hct 43.2 MCV 89 MCH 29.0 MCHC 32.4 RDW Std Deviation 46.5 H Plt Count 279 Neut % (Auto) 61 Lymph % (Auto) 8 L [place] % (Auto) 9 Eos % (Auto) 23 H Baso % (Auto) 1 Neut # (Auto) 7.5 Lymph # (Auto) 0.9 L [place] # (Auto) 1.1 H Eos # (Auto) 2.8 H Baso # (Auto) 0.1 Immature Gran # (Auto) 0.04 H Absolute Nucleated RBC 0.00 Immature Gran % 0 Nucleated RBC % 0 PT 10.7 INR 1.0 APTT 31.1 Sodium 138 Potassium 4.0 Chloride 102 Carbon Dioxide 26.4 Anion Gap 10 BUN 8 L Creatinine 0.6 Estim Creat Clear Calc 90.3 eGFR > 60 BUN/Creatinine Ratio 13 Glucose 76 Calculated Osmolality 272 L Calcium 8.2 L Corrected Calcium 8.4 L Phosphorus 3.0 Magnesium 2.0 Total Bilirubin 0.4 AST 10 ALT < 7 L Alkaline Phosphatase 64 Total Protein 5.5 L Albumin 3.8 Globulin 1.7 L Albumin/Globulin Ratio 2.2 Quality Measures Quality Measures VTE prophylaxis Advance care planning discussed with:: patient Assessment & Plan Assessment Current Active Medications: Generic Name Dose Route Start Last Admin Trade Name Moriah PRN Reason Stop Dose Admin Acetaminophen 650 mg 12/23/24 05:49 Acetaminophen 325 Mg Tablet PO 01/22/25 05:48 Q6H PRN Fever >100.4 or pain 1-3 Hydrocodone Bitart/Acetaminophen 1 tab 12/23/24 05:54 12/27/24 02:55 Hydrocodone/Apap 10/325 Tab PO 12/28/24 05:53 1 tab Q4H PRN Administration PAIN SCALE 4-6 (Moderate Albuterol/Ipratropium 3 ml 12/23/24 07:00 12/27/24 06:56 Albuterol/Ipratropium (Duoneb) Rt Zo 3 Ml Nebu INH 01/22/25 06:59 3 ml Q6HRRT CHAPARRO Administration Benzonatate 100 mg 12/26/24 18:33 12/26/24 18:38 Benzonatate 100 Mg Capsule PO 01/25/25 18:32 100 mg Q8HR PRN Administration COUGH Protocol Docusate Sodium 100 mg 12/23/24 09:00 12/26/24 08:28 Docusate Sod 100 Mg Capsule PO 01/22/25 08:59 100 mg QDAY CHAPARRO Administration Protocol Heparin Sodium (Porcine) 5,000 unit 12/25/24 21:00 12/26/24 08:29 Heparin Sod Inj 5000 Unit/Ml Vial SC 01/08/25 20:59 5,000 unit On Hold: 12/26/24 15:16 Q12HR CHAPARRO Administration Resume: 12/27/24 17:00 Hydromorphone HCl 0.5 mg 12/24/24 19:06 12/25/24 16:23 Hydromorphone Inj 2 Mg/Ml Vial IVP 12/29/24 19:05 0.5 mg Q4HR PRN Administration PAIN SCALE 7-10 (Severe Ceftriaxone Sodium/Dextrose 1 gm in 50 mls @ 100 mls/hr 12/25/24 11:40 12/27/24 09:02 Rocephin/D5w 1gm Iv Premix IV 12/29/24 11:39 100 mls/hr QDAY CHAPARRO Administration Levothyroxine Sodium 100 mcg 12/25/24 06:00 12/26/24 06:08 Levothyroxine Sodium 100 Mcg Tablet PO 01/24/25 05:59 100 mcg ACBR CHAPARRO Administration Naloxone HCl 2 mg 12/24/24 20:29 Naloxone Inj 0.4 Mg/Ml Vial IV Q3M PRN OPIATE REVERSAL Ondansetron HCl 4 mg 12/25/24 21:56 Ondansetron Inj 2 Mg/Ml Inj 2 Ml IVP 01/24/25 21:55 Q6HR PRN NAUSEA OR VOMITING Protocol Pantoprazole Sodium 40 mg 12/23/24 09:00 12/26/24 08:29 Pantoprazole Inj 40 Mg Vial IVP 01/22/25 08:59 40 mg QDAY CHAPARRO Administration Sertraline HCl 50 mg 12/23/24 09:00 12/26/24 08:29 Sertraline Hcl 25 Mg Tablet PO 01/22/25 08:59 50 mg QDAY CHAPARRO Administration Plan Mrs. Andrew is a 64-year-old female past medical significant of asthma, breast cancer s/p mastectomy 2017, thyroid cancer s/p thyroidectomy 2021 and radiation therapy, recently admitted for acute hypoxic respiratory failure secondary to right large pleural effusion discharged 11/20 presenting today 12/23 with similar complaint of SOB. #Acute hypoxic respiratory failure 03/25 #Left sided loculated pleural effusion 03/25 #Suspected malignant effusion, metastatic breast cancer #Hydropneumothorax right lung #Status post thoracentesis 11/07/24 and 11/08/24 #Asthma, by history #Stage IV breast cancer On initial presentation patient speaking in short sentences oxygen saturation 86% on 5L nasal cannula. Recent admission of similar presentation revealed exudative effusion from malignant metastases. Patient established with oncology outpatient, was transferred out for decortication however no intervention was done because of stage IV breast cancer. Case discussed with application engineer, lung ultrasound performed at bedside patient has loculated pleural effusion not enough for thoracentesis, will reassess in a.m. possibly may need chest tube. -Received Chest tube placement for pleural effusion in left lung (12/24/2024) -12/25: Patient drained a total of 3.7 L. Clear pleural followed, pleural WBC 663, pleural LDH 113, pleural total protein 4.0, pleural glucose 104. Considering, serum LDH 158, serum total protein 6.3, patient has exudative pleural effusion likely secondary to malignancy. -12/26: A total of 410ml has been drained this morning from left percutaneous chest tube. 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 -IR deferred planned right upper lobe lung biopsy after identifying consolidation surrounding the lesion on imaging. Instead IR recommended proceeding with a CT guided biopsy of the left apical lung nodule. Oncology was informed and agreed with the revised plan. Plan: -Continue DuoNebs q6h -Supplemental O2, titrate as tolerated to maintain SpO2 >93% -Incentive spirometry -Pain control with [place] 5 every Q4HR PRN -Morphine 2mg Q4HR PRN -Pulmonology consulted, appreciate recommendations. -Oncology consulted, appreciate recommendations -Gram stain of pleural fluid is pending. -Planned CT-guided left lung biopsy. Placed heparin on hold for the biopsy, the right lung biopsy order was cancelled #Hypothyroidism #Hx thyroid cancer s/p thyroidectomy 2021 No current active symptoms of hyperthyroid currently. TSH >100 free T4 0.86 Free T3 1.7 Plan: -Increased levothyroxine dosage from 75 mcg/day to 100mcg/day. -Outpatient titration of medication #Hx of pressure injury, coccyx, stage III Patient reports frequent back pain and it was noted that the patient had a possible pressure injury and her coccyx area. Per last admission, the wound staging is stage III without any drainage or order. Plan: -Referral to wound care -Continue to monitor #Depression - Continue home dose sertraline Health Maintenance: Code status: Full code DVT prophylaxis: SCDs GI prophylaxis: Protonix 40mg IVP QD Diet: Currently NPO Cardiac diet on hold [place]: None Lines: PIV Supplemental O2: Nasal cannula Disposition: Tele Attending Provider Attestation/Addendum I have discussed and was present for the essential components of the history, physical examination, diagnosis, and treatment plan with the resident. I agree with the patient's care as documented by the resident and amended herein by me. Andrzej Sanon DO. Although this document has been carefully reviewed, there may still be some phonetic and other typographical errors. These errors are purely grammatical due to imperfections in the software program and should not be construed in any way to compromise the substance of the patient's medical care during this visit.
[2024-12-27] MEDS: MIDAZOLAM INJ 1 MG/ML VIAL 2 ML IVP (14:47)
[2024-12-27] MEDS: LIDOCAINE INJ PF 1% 30 ML VIAL 14 ML INFL (14:48)
[2024-12-27] MEDS: fentaNYL CIT INJ 50 mCg/ML AMP 2ML IVP (14:48)
--- NOTE | 2024-12-27 15:17 | XR_ITS ---
Examination: Chest, AP, portable, single view post procedure. Technique: Chest, AP upright, portable, single view Date and time: 12/27/2024, 3:23 p.m. INDICATION: Post biopsy pneumothorax: Evaluate progression. Findings: Small apical lateral pneumothorax measuring approximately 5 mm in maximal diameter. No significant change when compared to findings on postbiopsy CT exam. Otherwise stable exam IMPRESSION: Stable 5 mm left apical pneumothorax.
--- NOTE | 2024-12-27 15:25 | PC.NURSE ---
1525 patient post lung biopsy, dressing to left upper chest dry with no bleeding, report given to Ameena LONGORIA, patient to have chest xray now and second xray at 1600.
--- NOTE | 2024-12-27 16:00 | XR_ITS ---
CLINICAL INDICATION: POST LEFT LUNG BIOPSY TECHNIQUE: XR chest 1V post procedure COMPARISON: Same day CT guided lung biopsy, and postbiopsy chest radiograph of the same day, 12/27/2024 at 3:30 p.m. FINDINGS: Very small left apical postbiopsy pneumothorax is reidentified without significant interval change. Hypoventilation with low lung volumes identified. Redemonstration of bilateral atelectases and pleural effusions, greater on the right side, including in the right upper and middle lobes along the mediastinum. Heart size is within normal limits for portable technique. Multiple surgical clips are present in the neck bilaterally. No acute osseous abnormality detected. IMPRESSION: No significant change in the very small left apical pneumothorax.
--- NOTE | 2024-12-27 16:58 | PC.NURSE ---
HAND OFF REPORT GIVEN TO UGO LONGORIA. NOTIFIED UGO LONGORIA OF 5MM STABLE PNEUMOTHORAX. NEXT CHEST X-RAY ORDER FOR 1729. PATIENT ALERT AND ORIENTED. GCS OF 15. ON 3L NC WHICH IS BASELINE ON ARRIVAL TO [employer] COORDINATOR. SITE IS SOFT, FLAT, NONTENDER, AND NO SIGNS OF HEMATOMA. DRESSING IS CLEAN DRY AND INTACT.
--- NOTE | 2024-12-27 17:07 | PC.NURSE ---
patient came back from lab courier for lung biopsy, patient slightly lethargic at this time, chest tube connected back to low continuos suction,.
--- NOTE | 2024-12-27 17:30 | XR_ITS ---
CLINICAL INDICATION: LEFT LUNG BIOPSY, follow-up for left-sided pneumothorax TECHNIQUE: XR chest 1V post procedure Exam date and time: 12/27/2024 at 5:22 p.m. COMPARISON: Chest radiograph of earlier the same day at 12/27/2024 and 3:23 p.m. FINDINGS: The cardiomediastinal silhouette is stable and within normal limits. No significant change in the very small left apical pneumothorax. Now seen is subcutaneous emphysema in the left lateral chest wall extending to the lower neck. Redemonstration of chest tube in the inferior portion of the left hemithorax. Redemonstration of bilateral pleural-parenchymal opacification, right side greater than left, without significant interval change. Redemonstration of surgical clips in the neck bilaterally, as well as in the right greater than left axilla. No acute osseous abnormality detected. IMPRESSION: No significant change in the very small left apical pneumothorax. Now seen is subcutaneous emphysema in the left lateral chest wall extending to the lower neck.
[2024-12-27] MEDS: BENZONATATE 100 MG CAPSULE PO (17:54)
[2024-12-27] MEDS: HEPARIN SOD INJ 5000 UNIT/ML VIAL SC (22:05)
[2024-12-27] MEDS: guaiFENesin SYRUP 200 MG/10 ML UDC 100 MG PO (22:38)
[2024-12-28] VITALS (11 sets, daily range): BP systolic 90–121; BP diastolic 65–88; PULSE 74–95; RESP 17–22; TEMP 36.1–36.6; O2SAT 93–99; BMI 25.0
[2024-12-28] MEDS: ALBUTEROL/IPRATROPIUM (Duoneb) RT SOL 3 ML NEBU INH ×4 (01:26→19:20)
[2024-12-28 06:09] LABS: Basophils # (Auto) 0.1 Thou/mm3 (0.0-0.2); Basophils % (Auto) 0 % (0-2.5); Eosinophils # (Auto) 2.4 Thou/mm3 (0.0-0.5); Eosinophils % (Auto) 17 % (0-10); Hematocrit 44.4 % (36.0-46.0); Hemoglobin 14.2 g/dL (12.0-16.0); Immature Granulocytes Auto 0.08 Thou/mm3 (0.00-0.00); Lymphocytes # (Auto) 0.8 Thou/mm3 (1.0-4.8); Lymphocytes % (Auto) 6 % (10-50); Mean Corpuscular HGB Conc 32.0 g/dl (31.0-37.0); Mean Corpuscular Hemoglobin 28.7 pg (25.0-35.0); Mean Corpuscular Volume 90 fL (80-100); Monocytes # (Auto) 1.3 Thou/mm3 (0.0-0.8); Monocytes % (Auto) 9 % (0-12); Neutrophils # (Auto) 9.3 Thou/mm3 (1.8-7.7); Neutrophils % (Auto) 67 % (37-80); Nucleated Red Blood Cell # 0.00 Thou/mm3 (0.00-0.00); Nucleated Red Blood Cell % 0 /100 WBC (0); Platelet Count 297 Thou/mm3 (140-440); RDW Standard Deviation 46.3 fL (36.4-46.3); Red Blood Count 4.94 Miln/mm3 (4.00-5.20); White Blood Count 13.8 Thou/mm3 (3.6-11.0)
[2024-12-28] MEDS: LEVOTHYROXINE SODIUM 100 MCG TABLET PO (06:23)
[2024-12-28 06:37] LABS: Alanine Aminotransferase < 7 U/L (10-49); Albumin, Serum 3.9 gm/dL (3.4-4.8); Albumin/Globulin Ratio 2.1 (1.2-2.2); Alkaline Phosphatase 70 U/L (46-116); Anion Gap 11 (7-16); Aspartate Amino Transferase 10 U/L (0-34); BUN/Creatinine Ratio 13 Ratio (12-20); Bilirubin,Total 0.4 mg/dL (0.3-1.2); Blood Urea Nitrogen 8 mg/dL (9-23); Calcium 8.6 mg/dL (8.3-10.6); Calcium (Corrected) 8.7 mg/dL (8.5-10.1); Carbon Dioxide 26.9 mMol/L (20.0-31.0); Chloride 99 mMol/L (98-107); Creatinine (Component) 0.6 mg/dL (0.6-1.3); Estimated Creatinine Clearance 103.1 mL/min (>60); Globulin 1.9 gm/dL (2.3-3.5); Glucose 72 mg/dL (74-106); Magnesium 1.9 mg/dL (1.6-2.6); Osmolality,Calculated 271 (275-295); Phosphorous 3.3 mg/dL (2.4-5.1); Potassium 4.0 mMol/L (3.4-5.1); Sodium 137 mMol/L (136-145); Total Protein 5.8 gm/dL (5.7-8.2); eGFR > 60 See Note
--- NOTE | 2024-12-28 07:54 | ESPR_ITS ---
<Statement entered by Wolf Prather MD - 12/28/24 16:36> Patient seen and examined at bedside. I discussed and supervised with the manager internet physician who took care of this patient. I personally saw and examined the patient. I agree with most of the assessment and plan. Spoke with pulmonolgist Dr. Nino, who flushed chest tube, followed by 400 ml output. Output was viscuous, with cellular debris. Recommend mobilizing patient to allow continued flow. Possible pleurodesis with doxycycline tomorrow. Plan of care discussed with attending Dr. Sanon. Wolf Prather MD PGY-2 Documentation for date of: 12/28/24 Subjective Subjective Interval history: Patient status post Left upper lobe lung mass pulmonary biopsy (12/27/2024). Post biopsy CT was performed which showed a small, less than 5% pneumothorax without evidence of interval progression. CXR(12/27/2024) showed stable 5 mm left apical pneumothorax. Repeat CXR (12/28/2024): showed presence of minimal left apical pneumothorax, appearing mildly improved. Also showed stable appearing subcutaneous emphysema of left lateral chest wall extending into the lower neck. Discussed the case with Oncology, Dr. Flowers. Lung biopsy confirms malignancy consistent with breast primary. Prognostic markers including ER/AR receptors and HER2/claudio results are still pending. Patient's PET scan scheduled as outpatient next (01/04) at [facility] for staging purposes. Plan to discharge patient by next tuesday at the latest if possible. Pending Pleural Fluid culture. Based on CXR (12/28), there were kinking of left pleural catheter. Will talk to fiberglass container winding operator if the percutaneous chest tube needs to be readjusted. Will need to monitor for chest tube drainage for today. Planned for pleurodesis likely tomorrow. Will continue to monitor. No Overnight events. Labs reviewed and patient examined at the bedside. Denies chest pain, palpation, SOB, abdominal pain, N/V, fevers or chills. Exam Vital Signs Temp Pulse Resp BP Pulse Ox O2 Del Method O2 Flow Rate 97.1 F 78 20 103/70 99 Nasal Cannula 3 12/28/24 04:00 12/28/24 06:29 12/28/24 06:29 12/28/24 04:00 12/28/24 06:29 12/28/24 04:00 12/28/24 06:29 Narrative Exam General: No acute distress, well nourished, AAO x3 Eye: Normal conjunctiva, no scleral icterus HENT: Normocephalic, atraumatic, hearing intact to conversation at normal volume, moist oral mucosa Neck: Supple, non-tender, no JVD, no lymphadenopathy Lungs: Symmetric chest rise, No wheezing, rhonchi, crackles, Decreased breathe sounds in bilateral lung bases. Heart: Peripheral pulses intact bilaterally, Regular Rate and Rhythm. Abdomen: Soft, non-tender, non-distended, no palpable masses Musculoskeletal: Normal range of motion and strength, No cyanosis or edema, No visible joint swelling Skin: Skin is warm, dry, no rashes or lesions. Psychiatric: Cooperative, appropriate mood and affect, Awake and alert, not agitated Neuro: Cranial nerves II-XII grossly intact. Strength 5/5 throughout. Sensations intact to light touch. Objective Labs 12/28/24 05:09 12/28/24 05:09 Labs: Laboratory Results - last 24 hr 12/27/24 12/28/24 04:54 05:09 WBC 13.8 H RBC 4.94 Hgb 14.2 Hct 44.4 MCV 90 MCH 28.7 MCHC 32.0 RDW Std Deviation 46.3 Plt Count 297 Neut % (Auto) 67 Lymph % (Auto) 6 L [place] % (Auto) 9 Eos % (Auto) 17 H Baso % (Auto) 0 Neut # (Auto) 9.3 H Lymph # (Auto) 0.8 L [place] # (Auto) 1.3 H Eos # (Auto) 2.4 H Baso # (Auto) 0.1 Immature Gran # (Auto) 0.08 H Absolute Nucleated RBC 0.00 Immature Gran % 1 H Nucleated RBC % 0 PT 10.7 INR 1.0 APTT 31.1 Sodium 137 Potassium 4.0 Chloride 99 Carbon Dioxide 26.9 Anion Gap 11 BUN 8 L Creatinine 0.6 Estim Creat Clear Calc 103.1 eGFR > 60 BUN/Creatinine Ratio 13 Glucose 72 L Calculated Osmolality 271 L Calcium 8.6 Corrected Calcium 8.7 Phosphorus 3.3 Magnesium 1.9 Total Bilirubin 0.4 AST 10 ALT < 7 L Alkaline Phosphatase 70 Total Protein 5.8 Albumin 3.9 Globulin 1.9 L Albumin/Globulin Ratio 2.1 Quality Measures Quality Measures VTE prophylaxis Advance care planning discussed with:: patient Assessment & Plan Assessment Current Active Medications: Generic Name Dose Route Start Last Admin Trade Name Freq PRN Reason Stop Dose Admin Acetaminophen 650 mg 12/23/24 05:49 Acetaminophen 325 Mg Tablet PO 01/22/25 05:48 Q6H PRN Fever >100.4 or pain 1-3 Hydrocodone Bitart/Acetaminophen 1 tab 12/28/24 06:06 Hydrocodone/Apap 5/325 Tablet PO 01/02/25 06:05 Q4HR PRN Pain 7-10 Albuterol/Ipratropium 3 ml 12/23/24 07:00 12/28/24 06:28 Albuterol/Ipratropium (Duoneb) Rt Oz 3 Ml Nebu INH 01/22/25 06:59 3 ml Q6HRRT CHAPARRO Administration Benzonatate 100 mg 12/26/24 18:33 12/27/24 17:54 Benzonatate 100 Mg Capsule PO 01/25/25 18:32 100 mg Q8HR PRN Administration COUGH Protocol Docusate Sodium 100 mg 12/23/24 09:00 12/27/24 13:36 Docusate Sod 100 Mg Capsule PO 01/22/25 08:59 Not Given QDAY CHAPARRO Protocol Guaifenesin 100 mg 12/27/24 22:20 12/27/24 22:38 Guaifenesin Syrup 200 Mg/10 Ml Udc PO 01/26/25 22:19 100 mg QID PRN Administration COUGH Protocol Heparin Sodium (Porcine) 5,000 unit 12/25/24 21:00 12/27/24 22:05 Heparin Sod Inj 5000 Unit/Ml Vial SC 01/08/25 20:59 5,000 unit Q12HR CHAPARRO Administration Hydromorphone HCl 0.5 mg 12/28/24 06:09 Hydromorphone Inj 2 Mg/Ml Vial IVP 12/29/24 19:05 Q4HR PRN BREAKTHROUGH PAIN Ceftriaxone Sodium/Dextrose 1 gm in 50 mls @ 100 mls/hr 12/25/24 11:40 12/27/24 09:02 Rocephin/D5w 1gm Iv Premix IV 12/29/24 11:39 100 mls/hr QDAY CHAPARRO Administration Levothyroxine Sodium 100 mcg 12/25/24 06:00 12/28/24 06:23 Levothyroxine Sodium 100 Mcg Tablet PO 01/24/25 05:59 100 mcg ACBR CHAPARRO Administration Ondansetron HCl 4 mg 12/25/24 21:56 Ondansetron Inj 2 Mg/Ml Inj 2 Ml IVP 01/24/25 21:55 Q6HR PRN NAUSEA OR VOMITING Protocol Pantoprazole Sodium 40 mg 12/23/24 09:00 12/27/24 10:18 Pantoprazole Inj 40 Mg Vial IVP 01/22/25 08:59 40 mg QDAY CHAPARRO Administration Sertraline HCl 50 mg 12/23/24 09:00 12/27/24 13:36 Sertraline Hcl 25 Mg Tablet PO 01/22/25 08:59 Not Given QDAY CHAPARRO Plan Mrs. Andrew is a 64-year-old female past medical significant of asthma, breast cancer s/p mastectomy 2017, thyroid cancer s/p thyroidectomy 2021 and radiation therapy, recently admitted for acute hypoxic respiratory failure secondary to right large pleural effusion discharged 11/20 presenting today 12/23 with similar complaint of SOB. #Acute hypoxic respiratory failure / #Left sided loculated pleural effusion / #Suspected malignant effusion, metastatic breast cancer #Hydropneumothorax right lung #Status post thoracentesis 11/07/24 and 11/08/24 #Asthma, by history #Stage IV breast cancer On initial presentation patient speaking in short sentences oxygen saturation 86% on 5L nasal cannula. Recent admission of similar presentation revealed exudative effusion from malignant metastases. Patient established with oncology outpatient, was transferred out for decortication however no intervention was done because of stage IV breast cancer. Case discussed with fiberglass container winding operator, lung ultrasound performed at bedside patient has loculated pleural effusion not enough for thoracentesis, will reassess in a.m. possibly may need chest tube. -Blood Cx (12/23) has been negative for 5 days -Received Chest tube placement for pleural effusion in left lung (12/24/2024) -12/25: Patient drained a total of 3.7 L. Clear pleural followed, pleural WBC 663, pleural LDH 113, pleural total protein 4.0, pleural glucose 104. Considering, serum LDH 158, serum total protein 6.3, patient has exudative pleural effusion likely secondary to malignancy. -12/26: A total of 410ml has been drained from left percutaneous chest tube. 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 -IR deferred planned right upper lobe lung biopsy after identifying consolidation surrounding the lesion on imaging. Instead IR recommended proceeding with a CT guided biopsy of the left apical lung nodule. Oncology was informed and agreed with the revised plan. -Status post Left upper lobe lung mass pulmonary biopsy (12/27/2024). -Post biopsy CT (12/27) was performed which showed a small, less than 5% pneumothorax without evidence of interval progression. -CXR(12/27/2024) showed stable 5 mm left apical pneumothorax. -Repeat CXR (12/28/2024): showed presence of minimal left apical pneumothorax, appearing mildly improved. Also showed stable appearing subcutaneous emphysema of left lateral chest wall extending into the lower neck. Lastly, there were 2 points of kinking of left pleural catheter. -Discussed the case with Oncology, Dr. Flowers. Lung biopsy confirms malignancy consistent with breast primary. Prognostic markers including ER/AR receptors and HER2/claudio results are still pending. Plan: -Continue DuoNebs q6h -Supplemental O2, titrate as tolerated to maintain SpO2 >93% -Incentive spirometry -Pain control with [place] 5 every Q4HR PRN -Morphine 2mg Q4HR PRN -Pulmonology consulted, appreciate recommendations. -Oncology consulted, appreciate recommendations -Pending Pleural Fluid culture. -Will talk to fiberglass container winding operator if the percutaneous chest tube needs to be readjusted to resolve kinking. Will need to monitor for chest tube drainage for today. Planned for pleurdesis likely tomorrow. -Patient's PET scan scheduled as outpatient next (01/04) at [facility] for staging purposes. Plan to discharge patient by next tuesday at the latest if possible. #Hypothyroidism #Hx thyroid cancer s/p thyroidectomy 2021 No current active symptoms of hyperthyroid currently. TSH >100 free T4 0.86 Free T3 1.7 Plan: -Increased levothyroxine dosage from 75 mcg/day to 100mcg/day. -Outpatient titration of medication #Hx of pressure injury, coccyx, stage III Patient reports frequent back pain and it was noted that the patient had a possible pressure injury and her coccyx area. Per last admission, the wound staging is stage III without any drainage or order. Plan: -Referral to wound care -Continue to monitor #Depression - Continue home dose sertraline Health Maintenance: Code status: Full code DVT prophylaxis: SCDs GI prophylaxis: Protonix 40mg IVP QD Diet: Regular diet [place]: None Lines: PIV Supplemental O2: Nasal cannula Disposition: Tele Assessment and plan discussed with my attending physician Dr. Sanon and Dr. Prather (PGY-2) Dr. Henry (PGY-1) - Internal medicine resident Attending Provider Attestation/Addendum I have discussed and was present for the essential components of the history, physical examination, diagnosis, and treatment plan with the resident. I agree with the patient's care as documented by the resident and amended herein by me. Andrzej Sanon DO. Although this document has been carefully reviewed, there may still be some phonetic and other typographical errors. These errors are purely grammatical due to imperfections in the software program and should not be construed in any way to compromise the substance of the patient's medical care during this visit.
--- NOTE | 2024-12-28 08:00 | XR_ITS ---
CLINICAL INDICATION: Eval effusion progression TECHNIQUE: XR chest 1V portable Exam date and time: 12/28/2024 at 7:59 a.m. COMPARISON: Chest radiograph 12/27/2024 at 5:28 p.m. FINDINGS: Redemonstration of minimal left apical pneumothorax, appearing mildly improved in the interim. No significant change in very mild residual left-sided pleural fluid. 2 points of kinking of the left pleural catheter are seen. Redemonstration of subcutaneous emphysema over the left lateral chest wall extending into the lower neck, grossly stable in appearance. Redemonstration of low lung volumes, right pleural effusion and atelectasis, in addition to subpleural edema and/or fibrosis in both lungs. Persistent heterogeneous opacification noted in the left lung base/retrocardiac space including atelectatic changes. Small left apical density is seen as well. Right upper lobe/paramediastinal atelectasis/consolidation is reidentified. The cardiomediastinal silhouette is stable. IMPRESSION: Redemonstration of minimal left apical pneumothorax, appearing mildly improved in the interim. No significant change in very mild residual left-sided pleural fluid. 2 points of kinking of the left pleural catheter are seen. Please confirm proper function/output of the catheter. Redemonstration of subcutaneous emphysema over the left lateral chest wall extending into the lower neck, grossly stable in appearance. No significant change in appearance of the lungs with a right-sided pleural effusion.
[2024-12-28] MEDS: cefTRIAXone/D5w 1gm IV premix 1 GM/50 ML BAG IV (08:20)
[2024-12-28] MEDS: DOCUSATE SOD 100 MG CAPSULE PO (08:20)
[2024-12-28] MEDS: HEPARIN SOD INJ 5000 UNIT/ML VIAL SC ×2 (08:20→20:59)
[2024-12-28] MEDS: SERTRALINE HCL 25 MG TABLET 50 MG PO (08:20)
[2024-12-28] MEDS: HYDROcodone/APAP 5/325 TABLET 1 TAB PO ×3 (08:20→20:59)
--- NOTE | 2024-12-28 09:01 | PC.SS ---
Follow up note: Pt still has chest tube. Pending plumbing warehouse helper's recommendations. Pt will return home upon dc.
--- NOTE | 2024-12-28 10:26 | PD.ONCPROG ---
Documentation for date of: 12/28/24 Subjective Subjective Interval history: Patient underwent successful biopsy of nodule left upper lobe chest lesion yesterday. Spoke with pathologist today who confirms that it is malignancy consistent with breast primary. Prognostic markers including ER/LA receptors and HER2/claudio pending. Exam Vital Signs Temp Pulse Resp BP Pulse Ox O2 Del Method O2 Flow Rate 97.1 F 82 17 109/65 94 L Nasal Cannula 3 12/28/24 08:00 12/28/24 08:00 12/28/24 08:00 12/28/24 08:00 12/28/24 08:00 12/28/24 08:00 12/28/24 08:00 Narrative Exam Feeling comfortable this a.m. with no significant complaints of shortness of breath. Objective Labs 12/28/24 05:09 12/28/24 05:09 Labs: Laboratory Results - last 24 hr 12/28/24 05:09 WBC 13.8 H RBC 4.94 Hgb 14.2 Hct 44.4 MCV 90 MCH 28.7 MCHC 32.0 RDW Std Deviation 46.3 Plt Count 297 Neut % (Auto) 67 Lymph % (Auto) 6 L [place] % (Auto) 9 Eos % (Auto) 17 H Baso % (Auto) 0 Neut # (Auto) 9.3 H Lymph # (Auto) 0.8 L [place] # (Auto) 1.3 H Eos # (Auto) 2.4 H Baso # (Auto) 0.1 Immature Gran # (Auto) 0.08 H Absolute Nucleated RBC 0.00 Immature Gran % 1 H Nucleated RBC % 0 Sodium 137 Potassium 4.0 Chloride 99 Carbon Dioxide 26.9 Anion Gap 11 BUN 8 L Creatinine 0.6 Estim Creat Clear Calc 103.1 eGFR > 60 BUN/Creatinine Ratio 13 Glucose 72 L Calculated Osmolality 271 L Calcium 8.6 Corrected Calcium 8.7 Phosphorus 3.3 Magnesium 1.9 Total Bilirubin 0.4 AST 10 ALT < 7 L Alkaline Phosphatase 70 Total Protein 5.8 Albumin 3.9 Globulin 1.9 L Albumin/Globulin Ratio 2.1 Assessment & Plan A&P Narrative 1. History of early-stage right breast CA treated with bilateral mastectomy taking letrozole for receptor positive cancer since. 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 2. Lung biopsy performed yesterday confirms malignancy consistent with breast primary. ER/LA receptor and HER2/claudio pending which will allow for potential tools for treatment of the recurrent cancer. 3. Being considered for pleurodesis due to the recurrence of the pleural effusion problem. 4. Patient has PET scan scheduled as outpatient for next at [facility] for staging purposes. 5. Appreciate the fine care, provided by the entire hospital staff, which was expressed by family members I have known for a long time. Time Spent With Patient Time: Total time spent is greater than 50% in coordination of care (as documented) at patient's floor/unit and/or counseling patient:
--- NOTE | 2024-12-28 21:44 | ESPR_ITS ---
Documentation for date of: 12/28/24 Subjective Subjective Interval history: Patient seen this morning. She continues to do well but has high output. Discontinued suction completely at this point. Patient without any evidence of pneumothorax after biopsy yesterday. I was unable to see her as she was off the floor for multiple hours while I was in ICU. Patient complains of minimal pain and is usually adequately controlled now with morphine and [place] intermittently, she does not like the morphine as it makes her feel uneasy and nauseated. Chest tube output continues to be serous with no air bubbles with cough. There was some debris occluding the tube which was easily flushed. Critical Care Note Critical care time (min.): 0 Exam Vital Signs Temp Pulse Resp BP Pulse Ox O2 Del Method O2 Flow Rate 97.1 F 92 17 119/67 94 L Nasal Cannula 3 12/31/24 20:00 12/31/24 20:00 12/31/24 20:00 12/31/24 20:00 12/31/24 20:00 12/31/24 20:00 12/31/24 20:00 Narrative Exam GEN: Able to speak in full sentences HEENT: Moist mucous membranes NECK: No JVD CHEST: Lateral left-sided chest tube with serous output, continues to be greater than 200cc in 24 hours, taken off suction and catheter flushed easily CVS: S1/S2+, no rubs, murmurs, gallops PULM: Absent breath sounds at both bases ABD: Soft, nontender, nondistended, bowel sounds present EXT: No clubbing or cyanosis NEURO: nonfocal on gross examination PSYCH: Appropriate mood and affect Physical Exam Completion Physical Exam Complete?: Yes Objective - Fleet Sales Associate Labs 12/31/24 05:13 12/31/24 05:13 Labs: Laboratory Results - last 24 hr 12/31/24 05:13 WBC 16.5 H RBC 4.96 Hgb 14.2 Hct 43.8 MCV 88 MCH 28.6 MCHC 32.4 RDW Std Deviation 44.8 Plt Count 331 Neut % (Auto) 66 Lymph % (Auto) 6 L [place] % (Auto) 9 Eos % (Auto) 18 H Baso % (Auto) 1 Neut # (Auto) 11.0 H Lymph # (Auto) 0.9 L [place] # (Auto) 1.5 H Eos # (Auto) 2.9 H Baso # (Auto) 0.1 Immature Gran # (Auto) 0.14 H Absolute Nucleated RBC 0.00 Immature Gran % 1 H Nucleated RBC % 0 Sodium 136 Potassium 3.6 Chloride 98 Carbon Dioxide 27.6 Anion Gap 10 BUN 8 L Creatinine 0.5 L Estim Creat Clear Calc 123.7 eGFR > 60 BUN/Creatinine Ratio 16 Glucose 71 L Calculated Osmolality 268 L Calcium 8.7 Corrected Calcium 8.9 Phosphorus 3.2 Magnesium 1.7 Total Bilirubin 0.4 AST 10 ALT < 7 L Alkaline Phosphatase 69 Total Protein 5.6 L Albumin 3.8 Globulin 1.8 L Albumin/Globulin Ratio 2.1 Assessment & Plan Additional Plan Additional Plan: Right hydropneumothorax Left pleural effusion, malignant Acute hypoxic respiratory failure Falsely low output due to occlusion Continue twice daily flushes with saline under sterile technique Continues to have high output after clearance and clinically with evacuation of the pleural cavity has coughing suggesting ability to fully expanded lungs still as seen on chest imaging Will continue to work on potential for talc pleurodesis versus use of doxycycline based on availability Should output remain hide this will suggest inability to succeed with talc slurry and patient may be better off with PleurX catheter Continue to follow over the weekend to determine best course of action based on changes and output Follow-up on biopsy sample from yesterday as this will help oncology with definitive therapy I will see her again tomorrow Provider Notation Provider Notation: Although this document has been carefully reviewed, there may still be some phonetic and other typographical errors. These errors are purely grammatical due to imperfections in the software program and should not be construed in any way to compromise the substance of the patient's medical care during this visit. Thank you for the opportunity and privilege in assisting you with this patient's care and management.
[2024-12-29] VITALS (12 sets, daily range): BP systolic 115–135; BP diastolic 67–89; PULSE 69–109; RESP 10–24; TEMP 36.1–36.5; O2SAT 93–99; BMI 25.0
[2024-12-29] MEDS: ALBUTEROL/IPRATROPIUM (Duoneb) RT SOL 3 ML NEBU INH ×6 (00:04→20:45)
[2024-12-29] MEDS: HYDROcodone/APAP 5/325 TABLET 1 TAB PO ×4 (03:52→23:54)
[2024-12-29] MEDS: LEVOTHYROXINE SODIUM 100 MCG TABLET PO (05:35)
[2024-12-29] MEDS: guaiFENesin SYRUP 200 MG/10 ML UDC 100 MG PO (05:40)
[2024-12-29 06:49] LABS: Basophils # (Auto) 0.1 Thou/mm3 (0.0-0.2); Basophils % (Auto) 1 % (0-2.5); Eosinophils # (Auto) 2.6 Thou/mm3 (0.0-0.5); Eosinophils % (Auto) 19 % (0-10); Hematocrit 43.0 % (36.0-46.0); Hemoglobin 13.9 g/dL (12.0-16.0); Immature Granulocytes Auto 0.08 Thou/mm3 (0.00-0.00); Lymphocytes # (Auto) 0.8 Thou/mm3 (1.0-4.8); Lymphocytes % (Auto) 6 % (10-50); Mean Corpuscular HGB Conc 32.3 g/dl (31.0-37.0); Mean Corpuscular Hemoglobin 28.8 pg (25.0-35.0); Mean Corpuscular Volume 89 fL (80-100); Monocytes # (Auto) 1.2 Thou/mm3 (0.0-0.8); Monocytes % (Auto) 9 % (0-12); Neutrophils # (Auto) 8.8 Thou/mm3 (1.8-7.7); Neutrophils % (Auto) 65 % (37-80); Nucleated Red Blood Cell # 0.00 Thou/mm3 (0.00-0.00); Nucleated Red Blood Cell % 0 /100 WBC (0); Platelet Count 290 Thou/mm3 (140-440); RDW Standard Deviation 45.1 fL (36.4-46.3); Red Blood Count 4.83 Miln/mm3 (4.00-5.20); White Blood Count 13.5 Thou/mm3 (3.6-11.0)
[2024-12-29 07:31] LABS: Alanine Aminotransferase < 7 U/L (10-49); Albumin, Serum 3.7 gm/dL (3.4-4.8); Albumin/Globulin Ratio 1.9 (1.2-2.2); Alkaline Phosphatase 68 U/L (46-116); Anion Gap 14 (7-16); Aspartate Amino Transferase 10 U/L (0-34); BUN/Creatinine Ratio 12 Ratio (12-20); Bilirubin,Total 0.3 mg/dL (0.3-1.2); Blood Urea Nitrogen 7 mg/dL (9-23); Calcium 8.7 mg/dL (8.3-10.6); Calcium (Corrected) 8.9 mg/dL (8.5-10.1); Carbon Dioxide 23.1 mMol/L (20.0-31.0); Chloride 99 mMol/L (98-107); Creatinine (Component) 0.6 mg/dL (0.6-1.3); Estimated Creatinine Clearance 103.1 mL/min (>60); Globulin 1.9 gm/dL (2.3-3.5); Glucose 72 mg/dL (74-106); Magnesium 1.8 mg/dL (1.6-2.6); Osmolality,Calculated 268 (275-295); Phosphorous 3.1 mg/dL (2.4-5.1); Potassium 3.8 mMol/L (3.4-5.1); Sodium 136 mMol/L (136-145); Total Protein 5.6 gm/dL (5.7-8.2); eGFR > 60 See Note
--- NOTE | 2024-12-29 08:39 | ESPR_ITS ---
<Statement entered by Nasreen Ramirez MD - 12/29/24 15:12> Patient was seen and examined at bedside. I agree on the assessment and plan on this note as documented by resident Vani Henry DO PGY1. 64-year-old female with past medical history as below admitted for bilateral pleural effusion, acute hypoxic respiratory failure, was found to have right lung hydropneumothorax and left-sided pleural effusion was noted on ultrasound, chest tube placed 12/24/2024, patient continues to have drainage from left chest tube. Chest tube was flushed yesterday and earlier today, pulmonology is following. Continues to have drainage, tube will be flushed later again tonight by night team will sign out to night resident. Possible chemical pleurodesis in AM depending on drainage. During the hospitalization patient did undergo left lung biopsy, oncology is following. Pending staining. Case discussed with attending Dr. Srinath Noriega MD PGY-2 Documentation for date of: 12/29/24 Subjective Subjective Interval history: Depending on patient's drainage from the percutaneous left lung chest tube, considering pleurodesis with doxycycline today. If patient is unable to do pleurodesis, considering to place PleurX catheter and discharge patient. Yesterday harness tier, Dr. Nino flushed the chest tube, which resulted 40 mL output with viscous and cellular debris's. Recommended patient to mobilize her body for better drainage and continuous flow. Repositioning of the chest tube was unnecessary. This morning the patient drained 340 ml from the chest tube. She has been afebrile overnight with current temperature of 96.9 F, WBC downtrending from 13.8 to 13.5. Again, Prognostic markers including ER/MI receptors and HER2/claudio results are still pending from the Left upper lobe lung mass pulmonary biopsy (12/27/2024). Plan to discharge patient by next tuesday at the latest if possible for her PET scan on 01/04 at [facility] for staging purposes. No Overnight events. Labs reviewed and patient examined at the bedside. Denies chest pain, palpation, SOB, abdominal pain, N/V, fevers or chills. Exam Vital Signs Temp Pulse Resp BP Pulse Ox O2 Del Method O2 Flow Rate 96.9 F 69 18 115/67 96 Humidified Nasal Cannula 3 12/29/24 07:44 12/29/24 07:44 12/29/24 07:44 12/29/24 07:44 12/29/24 07:44 12/29/24 07:44 12/29/24 07:44 Narrative Exam General: No acute distress, well nourished, AAO x3 Eye: Normal conjunctiva, no scleral icterus HENT: Normocephalic, atraumatic, hearing intact to conversation at normal volume, moist oral mucosa Neck: Supple, non-tender, no JVD, no lymphadenopathy Lungs: Symmetric chest rise, No wheezing, rhonchi, crackles, Decreased breathe sounds in bilateral lung bases. Heart: Peripheral pulses intact bilaterally, Regular Rate and Rhythm. Abdomen: Soft, non-tender, non-distended, no palpable masses Musculoskeletal: Normal range of motion and strength, No cyanosis or edema, No visible joint swelling Skin: Skin is warm, dry, no rashes or lesions. Psychiatric: Cooperative, appropriate mood and affect, Awake and alert, not agitated Neuro: Cranial nerves II-XII grossly intact. Strength 5/5 throughout. Sensations intact to light touch. Objective Labs 12/30/24 04:52 12/30/24 04:52 Labs: Laboratory Results - last 24 hr 12/29/24 06:13 WBC 13.5 H RBC 4.83 Hgb 13.9 Hct 43.0 MCV 89 MCH 28.8 MCHC 32.3 RDW Std Deviation 45.1 Plt Count 290 Neut % (Auto) 65 Lymph % (Auto) 6 L [place] % (Auto) 9 Eos % (Auto) 19 H Baso % (Auto) 1 Neut # (Auto) 8.8 H Lymph # (Auto) 0.8 L [place] # (Auto) 1.2 H Eos # (Auto) 2.6 H Baso # (Auto) 0.1 Immature Gran # (Auto) 0.08 H Absolute Nucleated RBC 0.00 Immature Gran % 1 H Nucleated RBC % 0 Sodium 136 Potassium 3.8 Chloride 99 Carbon Dioxide 23.1 Anion Gap 14 BUN 7 L Creatinine 0.6 Estim Creat Clear Calc 103.1 eGFR > 60 BUN/Creatinine Ratio 12 Glucose 72 L Calculated Osmolality 268 L Calcium 8.7 Corrected Calcium 8.9 Phosphorus 3.1 Magnesium 1.8 Total Bilirubin 0.3 AST 10 ALT < 7 L Alkaline Phosphatase 68 Total Protein 5.6 L Albumin 3.7 Globulin 1.9 L Albumin/Globulin Ratio 1.9 Quality Measures Quality Measures VTE prophylaxis Advance care planning discussed with:: patient and other Assessment & Plan Assessment Current Active Medications: Generic Name Dose Route Start Last Admin Trade Name Freq PRN Reason Stop Dose Admin Acetaminophen 650 mg 12/23/24 05:49 Acetaminophen 325 Mg Tablet PO 01/22/25 05:48 Q6H PRN Fever >100.4 or pain 1-3 Hydrocodone Bitart/Acetaminophen 1 tab 12/28/24 06:06 12/29/24 03:52 Hydrocodone/Apap 5/325 Tablet PO 01/02/25 06:05 1 tab Q4HR PRN Administration Pain 7-10 Albuterol/Ipratropium 3 ml 12/23/24 07:00 12/29/24 06:50 Albuterol/Ipratropium (Duoneb) Rt Zo 3 Ml Nebu INH 01/22/25 06:59 3 ml Q6HRRT CHAPARRO Administration Benzonatate 100 mg 12/26/24 18:33 12/27/24 17:54 Benzonatate 100 Mg Capsule PO 01/25/25 18:32 100 mg Q8HR PRN Administration COUGH Protocol Docusate Sodium 100 mg 12/23/24 09:00 12/28/24 08:20 Docusate Sod 100 Mg Capsule PO 01/22/25 08:59 100 mg QDAY CHAPARRO Administration Protocol Guaifenesin 100 mg 12/27/24 22:20 12/29/24 05:40 Guaifenesin Syrup 200 Mg/10 Ml Udc PO 01/26/25 22:19 100 mg QID PRN Administration COUGH Protocol Heparin Sodium (Porcine) 5,000 unit 12/25/24 21:00 12/28/24 20:59 Heparin Sod Inj 5000 Unit/Ml Vial SC 01/08/25 20:59 5,000 unit Q12HR CHAPARRO Administration Hydromorphone HCl 0.5 mg 12/28/24 06:09 Hydromorphone Inj 2 Mg/Ml Vial IVP 12/29/24 19:05 Q4HR PRN BREAKTHROUGH PAIN Ceftriaxone Sodium/Dextrose 1 gm in 50 mls @ 100 mls/hr 12/25/24 11:40 12/28/24 08:20 Rocephin/D5w 1gm Iv Premix IV 12/29/24 11:39 100 mls/hr QDAY CHAPARRO Administration Levothyroxine Sodium 100 mcg 12/25/24 06:00 12/29/24 05:35 Levothyroxine Sodium 100 Mcg Tablet PO 01/24/25 05:59 100 mcg ACBR CHAPARRO Administration Ondansetron HCl 4 mg 12/25/24 21:56 Ondansetron Inj 2 Mg/Ml Inj 2 Ml IVP 01/24/25 21:55 Q6HR PRN NAUSEA OR VOMITING Protocol Pantoprazole Sodium 40 mg 12/23/24 09:00 12/28/24 08:20 Pantoprazole Inj 40 Mg Vial IVP 01/22/25 08:59 40 mg QDAY CHAPARRO Administration Sertraline HCl 50 mg 12/23/24 09:00 12/28/24 08:20 Sertraline Hcl 25 Mg Tablet PO 01/22/25 08:59 50 mg QDAY CHAPARRO Administration Plan Mrs. Andrew is a 64-year-old female past medical significant of asthma, breast cancer s/p mastectomy 2017, thyroid cancer s/p thyroidectomy 2021 and radiation therapy, recently admitted for acute hypoxic respiratory failure secondary to right large pleural effusion discharged 11/20 presenting today 12/23 with similar complaint of SOB. #Acute hypoxic respiratory failure / #Left sided loculated pleural effusion / #Suspected malignant effusion, metastatic breast cancer #Hydropneumothorax right lung #Status post thoracentesis 11/07/24 and 11/08/24 #Asthma, by history #Stage IV breast cancer On initial presentation patient speaking in short sentences oxygen saturation 86% on 5L nasal cannula. Recent admission of similar presentation revealed exudative effusion from malignant metastases. Patient established with oncology outpatient, was transferred out for decortication however no intervention was done because of stage IV breast cancer. Case discussed with harness tier, lung ultrasound performed at bedside patient has loculated pleural effusion not enough for thoracentesis, will reassess in a.m. possibly may need chest tube. -Blood Cx (12/23) has been negative for 5 days -Received Chest tube placement for pleural effusion in left lung (12/24/2024) -12/25: Patient drained a total of 3.7 L. Clear pleural followed, pleural WBC 663, pleural LDH 113, pleural total protein 4.0, pleural glucose 104. Considering, serum LDH 158, serum total protein 6.3, patient has exudative pleural effusion likely secondary to malignancy. -12/26: A total of 410ml has been drained from left percutaneous chest tube. 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 -IR deferred planned right upper lobe lung biopsy after identifying consolidation surrounding the lesion on imaging. Instead IR recommended proceeding with a CT guided biopsy of the left apical lung nodule. Oncology was informed and agreed with the revised plan. -Status post Left upper lobe lung mass pulmonary biopsy (12/27/2024). -Post biopsy CT (12/27) was performed which showed a small, less than 5% pneumothorax without evidence of interval progression. -CXR(12/27/2024) showed stable 5 mm left apical pneumothorax. -Repeat CXR (12/28/2024): showed presence of minimal left apical pneumothorax, appearing mildly improved. Also showed stable appearing subcutaneous emphysema of left lateral chest wall extending into the lower neck. Lastly, there were 2 points of kinking of left pleural catheter. -Discussed the case with Oncology, Dr. Flowers. Lung biopsy confirms malignancy consistent with breast primary. Prognostic markers including ER/MI receptors and HER2/claudio results are still pending. -Depending on patient's drainage from the percutaneous left lung chest tube, considering pleurodesis with doxycycline today. If patient is unable to do pleurodesis, considering to place PleurX catheter and discharge patient. -Truck Loader And Unloader, Dr. Nino flushed the chest tube, which resulted 40 mL output with viscous and cellular debris's. Recommended patient to mobilize her body for better drainage and continuous flow. Repositioning of the chest tube was unnecessary. Plan: -Continue DuoNebs q6h -Supplemental O2, titrate as tolerated to maintain SpO2 >93% -Incentive spirometry -Pain control with [place] 5 every Q4HR PRN -Morphine 2mg Q4HR PRN -Pulmonology consulted, appreciate recommendations. -Oncology consulted, appreciate recommendations -Pending Pleural Fluid culture. -Patient's PET scan scheduled as outpatient next (01/04) at [facility] for staging purposes. Plan to discharge patient by next tuesday at the latest if possible. -Still monitoring patient's drainage from the percutaneous left lung chest tube, for possible pleurodesis with doxycycline. If patient is unable to do pleurodesis, considering to place PleurX catheter and discharge patient. #Hypothyroidism #Hx thyroid cancer s/p thyroidectomy 2021 No current active symptoms of hyperthyroid currently. TSH >100 free T4 0.86 Free T3 1.7 Plan: -Increased levothyroxine dosage from 75 mcg/day to 100mcg/day. -Outpatient titration of medication #Hx of pressure injury, coccyx, stage III Patient reports frequent back pain and it was noted that the patient had a possible pressure injury and her coccyx area. Per last admission, the wound staging is stage III without any drainage or order. Plan: -Referral to wound care -Continue to monitor #Depression - Continue home dose sertraline Health Maintenance: Code status: Full code DVT prophylaxis: SCDs GI prophylaxis: Protonix 40mg IVP QD Diet: Regular diet [place]: None Lines: PIV Supplemental O2: Nasal cannula Disposition: Tele Assessment and plan discussed with my attending physician Dr. Sanon and Dr. Ramirez (PGY-2) Dr. Henry (PGY-1) - Internal medicine resident Attending Provider Attestation/Addendum I have discussed and was present for the essential components of the history, physical examination, diagnosis, and treatment plan with the resident. I agree with the patient's care as documented by the resident and amended herein by me. Andrzej Sanon DO. Although this document has been carefully reviewed, there may still be some phonetic and other typographical errors. These errors are purely grammatical due to imperfections in the software program and should not be construed in any way to compromise the substance of the patient's medical care during this visit.
[2024-12-29] MEDS: cefTRIAXone/D5w 1gm IV premix 1 GM/50 ML BAG IV (08:41)
[2024-12-29] MEDS: SERTRALINE HCL 25 MG TABLET 50 MG PO (08:42)
[2024-12-29] MEDS: DOCUSATE SOD 100 MG CAPSULE PO (08:42)
[2024-12-29] MEDS: HEPARIN SOD INJ 5000 UNIT/ML VIAL SC ×2 (08:42→21:30)
[2024-12-29] MEDS: BENZONATATE 100 MG CAPSULE PO ×2 (10:45→21:30)
--- NOTE | 2024-12-29 11:57 | XR_ITS ---
EXAMINATION: AP portable semiupright chest single view Date and time: December 29 2024, 1254 hours INDICATIONS: Post chest tube placement TECHNIQUE: AP portable semiupright chest single view Findings: Mild heart failure. Mild enlargement cardiac contour Tube overlies the left hemithorax No current pneumothorax Enlarged cardiac contour with prominent vascular congestion again noted Mild to moderate bilateral pleural fluid IMPRESSION: Mild heart failure No current pneumothorax:
[2024-12-29] MEDS: ONDANSETRON INJ 2 MG/ML INJ 2 ML 4 MG IVP (20:16)
--- NOTE | 2024-12-29 20:24 | PC.NURSE ---
DR. HAMM NOTIFIED OF PT WITH CONTINUOUS COUGH CAUSING EMESIS OF UNDIGESTED FOODS. NEW ORDER PLACED FOR DUONEB X1 GIVEN. ZOFRAN ADMINISTERED. RT MADE AWARE OF PENDING ORDER FOR X1 DUONEB.
--- NOTE | 2024-12-29 21:48 | PD.PUPROG ---
Documentation for date of: 12/29/24 Subjective Subjective Interval history: Patient continues to have high output from chest tube after flushing, residents doing this overnight on my behalf. Patient continues to have adequate chest pain she is remaining in bed despite by multiple attempts to motivate her to get out. Suction was discontinued and she is not having any issues with this either with tube occluded. I did flush the catheter again this afternoon. Critical Care Note Critical care time (min.): 0 Exam Vital Signs Temp Pulse Resp BP Pulse Ox O2 Del Method O2 Flow Rate 97.1 F 92 17 119/67 94 L Nasal Cannula 3 12/31/24 20:00 12/31/24 20:00 12/31/24 20:00 12/31/24 20:00 12/31/24 20:00 12/31/24 20:00 12/31/24 20:00 Narrative Exam GEN: Able to speak in full sentences HEENT: Moist mucous membranes NECK: No JVD CHEST: Lateral left-sided chest tube with serous output, continues to be greater than 200cc in 24 hours on waterseal and after serial flushing CVS: S1/S2+, no rubs, murmurs, gallops PULM: Absent breath sounds at both bases ABD: Soft, nontender, nondistended, bowel sounds present EXT: No clubbing or cyanosis NEURO: nonfocal on gross examination PSYCH: Appropriate mood/affect Physical Exam Completion Physical Exam Complete?: Yes Objective - Equipment Or Machinery Cleaner Labs 12/31/24 05:13 12/31/24 05:13 Labs: Laboratory Results - last 24 hr 12/31/24 05:13 WBC 16.5 H RBC 4.96 Hgb 14.2 Hct 43.8 MCV 88 MCH 28.6 MCHC 32.4 RDW Std Deviation 44.8 Plt Count 331 Neut % (Auto) 66 Lymph % (Auto) 6 L [place] % (Auto) 9 Eos % (Auto) 18 H Baso % (Auto) 1 Neut # (Auto) 11.0 H Lymph # (Auto) 0.9 L [place] # (Auto) 1.5 H Eos # (Auto) 2.9 H Baso # (Auto) 0.1 Immature Gran # (Auto) 0.14 H Absolute Nucleated RBC 0.00 Immature Gran % 1 H Nucleated RBC % 0 Sodium 136 Potassium 3.6 Chloride 98 Carbon Dioxide 27.6 Anion Gap 10 BUN 8 L Creatinine 0.5 L Estim Creat Clear Calc 123.7 eGFR > 60 BUN/Creatinine Ratio 16 Glucose 71 L Calculated Osmolality 268 L Calcium 8.7 Corrected Calcium 8.9 Phosphorus 3.2 Magnesium 1.7 Total Bilirubin 0.4 AST 10 ALT < 7 L Alkaline Phosphatase 69 Total Protein 5.6 L Albumin 3.8 Globulin 1.8 L Albumin/Globulin Ratio 2.1 Assessment & Plan Additional Plan Additional Plan: Right hydropneumothorax Left pleural effusion, malignant Acute hypoxic respiratory failure Continue twice daily flushes Remains with high output Medicine team trying to help arrange whether we can obtain talc, however doxycycline seems to be doing alternative Continued high output makes this less likely to succeed especially given has better efficacy based on literature Prolonged mobilization Adequate pain control Provider Notation Provider Notation: Although this document has been carefully reviewed, there may still be some phonetic and other typographical errors. These errors are purely grammatical due to imperfections in the software program and should not be construed in any way to compromise the substance of the patient's medical care during this visit. Thank you for the opportunity and privilege in assisting you with this patient's care and management.
[2024-12-30] VITALS (15 sets, daily range): BP systolic 111–134; BP diastolic 71–89; PULSE 77–100; RESP 16–24; TEMP 36.1–36.5; O2SAT 92–99
[2024-12-30] MEDS: ALBUTEROL/IPRATROPIUM (Duoneb) RT SOL 3 ML NEBU INH ×4 (00:55→18:48)
[2024-12-30] MEDS: HYDROcodone/APAP 5/325 TABLET 1 TAB PO ×5 (02:23→20:06)
[2024-12-30 05:45] LABS: Basophils # (Auto) 0.1 Thou/mm3 (0.0-0.2); Basophils % (Auto) 1 % (0-2.5); Eosinophils # (Auto) 2.4 Thou/mm3 (0.0-0.5); Eosinophils % (Auto) 16 % (0-10); Hematocrit 43.2 % (36.0-46.0); Hemoglobin 14.2 g/dL (12.0-16.0); Immature Granulocytes Auto 0.10 Thou/mm3 (0.00-0.00); Lymphocytes # (Auto) 0.8 Thou/mm3 (1.0-4.8); Lymphocytes % (Auto) 6 % (10-50); Mean Corpuscular HGB Conc 32.9 g/dl (31.0-37.0); Mean Corpuscular Hemoglobin 29.0 pg (25.0-35.0); Mean Corpuscular Volume 88 fL (80-100); Monocytes # (Auto) 1.5 Thou/mm3 (0.0-0.8); Monocytes % (Auto) 10 % (0-12); Neutrophils # (Auto) 9.9 Thou/mm3 (1.8-7.7); Neutrophils % (Auto) 67 % (37-80); Nucleated Red Blood Cell # 0.00 Thou/mm3 (0.00-0.00); Nucleated Red Blood Cell % 0 /100 WBC (0); Platelet Count 307 Thou/mm3 (140-440); RDW Standard Deviation 45.4 fL (36.4-46.3); Red Blood Count 4.89 Miln/mm3 (4.00-5.20); White Blood Count 14.8 Thou/mm3 (3.6-11.0)
[2024-12-30] MEDS: LEVOTHYROXINE SODIUM 100 MCG TABLET PO (06:14)
[2024-12-30] MEDS: BENZONATATE 100 MG CAPSULE PO ×3 (06:14→21:11)
[2024-12-30 06:21] LABS: Alanine Aminotransferase < 7 U/L (10-49); Albumin, Serum 3.9 gm/dL (3.4-4.8); Albumin/Globulin Ratio 2.1 (1.2-2.2); Alkaline Phosphatase 70 U/L (46-116); Anion Gap 14 (7-16); Aspartate Amino Transferase 10 U/L (0-34); BUN/Creatinine Ratio 15 Ratio (12-20); Bilirubin,Total 0.3 mg/dL (0.3-1.2); Blood Urea Nitrogen 9 mg/dL (9-23); Calcium 8.7 mg/dL (8.3-10.6); Calcium (Corrected) 8.8 mg/dL (8.5-10.1); Carbon Dioxide 24.4 mMol/L (20.0-31.0); Chloride 98 mMol/L (98-107); Creatinine (Component) 0.6 mg/dL (0.6-1.3); Estimated Creatinine Clearance 103.1 mL/min (>60); Globulin 1.9 gm/dL (2.3-3.5); Glucose 80 mg/dL (74-106); Magnesium 1.8 mg/dL (1.6-2.6); Osmolality,Calculated 269 (275-295); Phosphorous 3.5 mg/dL (2.4-5.1); Potassium 3.7 mMol/L (3.4-5.1); Sodium 136 mMol/L (136-145); Total Protein 5.8 gm/dL (5.7-8.2); eGFR > 60 See Note
[2024-12-30] MEDS: HEPARIN SOD INJ 5000 UNIT/ML VIAL SC ×2 (08:51→20:07)
[2024-12-30] MEDS: DOCUSATE SOD 100 MG CAPSULE PO (08:51)
[2024-12-30] MEDS: SERTRALINE HCL 25 MG TABLET 50 MG PO (08:51)
[2024-12-30] MEDS: FUROSEMIDE INJ 10 MG/ML VIAL 2 ML 20 MG IVP (11:27)
--- NOTE | 2024-12-30 12:40 | PD.RESPRO ---
Documentation for date of: 12/30/24 Subjective Subjective Interval history: Patient did complain of pain overnight, was given [place], overnight chest tube was flushed by the night hospitalist team. Patient continues to have a significant amount of output. At bedside patient continues to have significant coughing, saturating greater than 92 on 3 L nasal cannula, chest tube on waterseal, no suctioning. Will start patient on Tessalon scheduled every 8 hours to improve cough, will give a 20 mg push of IV Lasix considering that chest x-ray does show vascular congestion. Scheduled on [place] 5 at bedtime 2100, otherwise will continue [place] 5 every 4 hours as needed. Case discussed with pulmonology, patient continues to have significant output, will need chest tube to be flushed overnight. If patient continues to have increased output, will discuss with interventional radiology in a.m. regarding PleurX catheter placement. Exam Vital Signs Temp Pulse Resp BP Pulse Ox O2 Del Method O2 Flow Rate 97.2 F 93 24 H 132/81 H 93 L Nasal Cannula 3 12/30/24 07:51 12/30/24 11:27 12/30/24 07:51 12/30/24 11:27 12/30/24 07:51 12/30/24 07:51 12/30/24 07:51 Narrative Exam General: No acute distress, well nourished, AAO x3 Eye: Normal conjunctiva, no scleral icterus HENT: Normocephalic, atraumatic, hearing intact to conversation at normal volume, moist oral mucosa Neck: Supple, non-tender, no JVD, no lymphadenopathy Lungs: Symmetric chest rise, No wheezing, rhonchi, crackles, Decreased breathe sounds in bilateral lung bases. Chest tube noted. Heart: Peripheral pulses intact bilaterally, Regular Rate and Rhythm. Abdomen: Soft, non-tender, non-distended, no palpable masses Musculoskeletal: Normal range of motion and strength, No cyanosis or edema, No visible joint swelling Skin: Skin is warm, dry, no rashes or lesions. Psychiatric: Cooperative, appropriate mood and affect, Awake and alert, not agitated Neuro: Cranial nerves II-XII grossly intact. Strength 5/5 throughout. Sensations intact to light touch. Objective Labs 12/31/24 05:13 12/31/24 05:13 Labs: Laboratory Results - last 24 hr 12/30/24 04:52 WBC 14.8 H RBC 4.89 Hgb 14.2 Hct 43.2 MCV 88 MCH 29.0 MCHC 32.9 RDW Std Deviation 45.4 Plt Count 307 Neut % (Auto) 67 Lymph % (Auto) 6 L [place] % (Auto) 10 Eos % (Auto) 16 H Baso % (Auto) 1 Neut # (Auto) 9.9 H Lymph # (Auto) 0.8 L [place] # (Auto) 1.5 H Eos # (Auto) 2.4 H Baso # (Auto) 0.1 Immature Gran # (Auto) 0.10 H Absolute Nucleated RBC 0.00 Immature Gran % 1 H Nucleated RBC % 0 Sodium 136 Potassium 3.7 Chloride 98 Carbon Dioxide 24.4 Anion Gap 14 BUN 9 Creatinine 0.6 Estim Creat Clear Calc 103.1 eGFR > 60 BUN/Creatinine Ratio 15 Glucose 80 Calculated Osmolality 269 L Calcium 8.7 Corrected Calcium 8.8 Phosphorus 3.5 Magnesium 1.8 Total Bilirubin 0.3 AST 10 ALT < 7 L Alkaline Phosphatase 70 Total Protein 5.8 Albumin 3.9 Globulin 1.9 L Albumin/Globulin Ratio 2.1 Quality Measures Quality Measures VTE prophylaxis Advance care planning discussed with:: patient Assessment & Plan Assessment Current Active Medications: Generic Name Dose Route Start Last Admin Trade Name Freq PRN Reason Stop Dose Admin Acetaminophen 650 mg 12/23/24 05:49 Acetaminophen 325 Mg Tablet PO 01/22/25 05:48 Q6H PRN Fever >100.4 or pain 1-3 Hydrocodone Bitart/Acetaminophen 1 tab 12/30/24 02:25 12/30/24 11:27 Hydrocodone/Apap 5/325 Tablet PO 01/04/25 02:24 1 tab Q4HR PRN Administration Pain 7-10 Hydrocodone Bitart/Acetaminophen 1 tab 12/30/24 21:00 Hydrocodone/Apap 5/325 Tablet PO 01/04/25 20:59 HS CHAPARRO Albuterol/Ipratropium 3 ml 12/23/24 07:00 12/30/24 06:54 Albuterol/Ipratropium (Duoneb) Rt Zo 3 Ml Nebu INH 01/22/25 06:59 3 ml Q6HRRT CHAPARRO Administration Albuterol/Ipratropium 3 ml 12/30/24 03:46 Albuterol/Ipratropium (Duoneb) Rt Zo 3 Ml Nebu INH 01/29/25 03:45 Q2HR PRN SHORTNESS OF BREATH OR WHEEZE Benzonatate 100 mg 12/30/24 11:00 12/30/24 11:27 Benzonatate 100 Mg Capsule PO 01/29/25 10:59 100 mg Q8HR CHAPARRO Administration Protocol Docusate Sodium 100 mg 12/23/24 09:00 12/30/24 08:51 Docusate Sod 100 Mg Capsule PO 01/22/25 08:59 100 mg QDAY CHAPARRO Administration Protocol Guaifenesin 100 mg 12/27/24 22:20 12/29/24 05:40 Guaifenesin Syrup 200 Mg/10 Ml Udc PO 01/26/25 22:19 100 mg QID PRN Administration COUGH Protocol Heparin Sodium (Porcine) 5,000 unit 12/25/24 21:00 12/30/24 08:51 Heparin Sod Inj 5000 Unit/Ml Vial SC 01/08/25 20:59 5,000 unit Q12HR CHAPARRO Administration Levothyroxine Sodium 100 mcg 12/25/24 06:00 12/30/24 06:14 Levothyroxine Sodium 100 Mcg Tablet PO 01/24/25 05:59 100 mcg ACBR CHAPARRO Administration Ondansetron HCl 4 mg 12/25/24 21:56 12/29/24 20:16 Ondansetron Inj 2 Mg/Ml Inj 2 Ml IVP 01/24/25 21:55 4 mg Q6HR PRN Administration NAUSEA OR VOMITING Protocol Pantoprazole Sodium 40 mg 12/23/24 09:00 12/30/24 08:50 Pantoprazole Inj 40 Mg Vial IVP 01/22/25 08:59 40 mg QDAY CHAPARRO Administration Sertraline HCl 50 mg 12/23/24 09:00 12/30/24 08:51 Sertraline Hcl 25 Mg Tablet PO 01/22/25 08:59 50 mg QDAY CHAPARRO Administration Plan Mrs. Andrew is a 64-year-old female past medical significant of asthma, breast cancer s/p mastectomy 2017, thyroid cancer s/p thyroidectomy 2021 and radiation therapy, recently admitted for acute hypoxic respiratory failure secondary to right large pleural effusion discharged 11/20 presenting today 12/23 with similar complaint of SOB. #Acute hypoxic respiratory failure 2/2 #Left sided loculated pleural effusion 2/2 #Suspected malignant effusion, metastatic breast cancer #Hydropneumothorax right lung #Status post thoracentesis 11/07/24 and 11/08/24 #Asthma, by history #Stage IV breast cancer On initial presentation patient speaking in short sentences oxygen saturation 86% on 5L nasal cannula. Recent admission of similar presentation revealed exudative effusion from malignant metastases. Patient established with oncology outpatient, was transferred out for decortication however no intervention was done because of stage IV breast cancer. Case discussed with assembler mechanical ordnance, lung ultrasound performed at bedside patient has loculated pleural effusion not enough for thoracentesis, will reassess in a.m. possibly may need chest tube. -Blood Cx (12/23) has been negative for 5 days -Received Chest tube placement for pleural effusion in left lung (12/24/2024) -12/25: Patient drained a total of 3.7 L. Clear pleural followed, pleural WBC 663, pleural LDH 113, pleural total protein 4.0, pleural glucose 104. Considering, serum LDH 158, serum total protein 6.3, patient has exudative pleural effusion likely secondary to malignancy. -12/26: A total of 410ml has been drained from left percutaneous chest tube. 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 -IR deferred planned right upper lobe lung biopsy after identifying consolidation surrounding the lesion on imaging. Instead IR recommended proceeding with a CT guided biopsy of the left apical lung nodule. Oncology was informed and agreed with the revised plan. -Status post Left upper lobe lung mass pulmonary biopsy (12/27/2024). -Post biopsy CT (12/27) was performed which showed a small, less than 5% pneumothorax without evidence of interval progression. -CXR(12/27/2024) showed stable 5 mm left apical pneumothorax. -Repeat CXR (12/28/2024): showed presence of minimal left apical pneumothorax, appearing mildly improved. Also showed stable appearing subcutaneous emphysema of left lateral chest wall extending into the lower neck. Lastly, there were 2 points of kinking of left pleural catheter. -Discussed the case with Oncology, Dr. Flowers. Lung biopsy confirms malignancy consistent with breast primary. Prognostic markers including ER/WV receptors and HER2/claudio results are still pending. -Depending on patient's drainage from the percutaneous left lung chest tube, considering pleurodesis with doxycycline today. If patient is unable to do pleurodesis, considering to place PleurX catheter and discharge patient. -Advertising Copywriter, Dr. Nino flushed the chest tube, which resulted 40 mL output with viscous and cellular debris's. Recommended patient to mobilize her body for better drainage and continuous flow. Repositioning of the chest tube was unnecessary. Plan: -Continue DuoNebs q6h, DuoNebs every 2 hours as needed - Tessalon every 8 hours -[place] 5 every 4 hours as needed, [place] 5 at night @2100 - Catheter to be flushed today -Supplemental O2, titrate as tolerated to maintain SpO2 >93% -Incentive spirometry -Pulmonology consulted, appreciate recommendations. -Oncology consulted, appreciate recommendations -Pending Pleural Fluid culture. -Patient's PET scan scheduled as outpatient next (01/04) at [facility] for staging purposes. Plan to discharge patient by next tuesday at the latest if possible. -Still monitoring patient's drainage from the percutaneous left lung chest tube, for possible pleurodesis with doxycycline. If patient is unable to do pleurodesis, considering to place PleurX catheter and discharge patient. #Hypothyroidism #Hx thyroid cancer s/p thyroidectomy 2021 No current active symptoms of hyperthyroid currently. TSH >100 free T4 0.86 Free T3 1.7 Plan: -Increased levothyroxine dosage from 75 mcg/day to 100mcg/day. -Outpatient titration of medication #Hx of pressure injury, coccyx, stage III Patient reports frequent back pain and it was noted that the patient had a possible pressure injury and her coccyx area. Per last admission, the wound staging is stage III without any drainage or order. Plan: -Referral to wound care -Continue to monitor #Depression - Continue home dose sertraline Health Maintenance: Code status: Full code DVT prophylaxis: Heparin every 12 hours GI prophylaxis: Protonix 40mg IVP QD Diet: Regular diet [place]: None Lines: PIV Supplemental O2: Nasal cannula Disposition: Tele Case discussed with Attending Physician Dr. Srinath Sanon, DO Nasreen Ramirez MD Internal Medicine PGY-2 Disclaimer: This note was dictated by speech recognition. Minor errors in roller gold leaf may be present due to voice recognition software. Attending Provider Attestation/Addendum I have discussed and was present for the essential components of the history, physical examination, diagnosis, and treatment plan with the resident. I agree with the patient's care as documented by the resident and amended herein by me. Andrzej Sanon DO. Although this document has been carefully reviewed, there may still be some phonetic and other typographical errors. These errors are purely grammatical due to imperfections in the software program and should not be construed in any way to compromise the substance of the patient's medical care during this visit.
--- NOTE | 2024-12-30 21:37 | ESPR_ITS ---
Documentation for date of: 12/30/24 Subjective Subjective Interval history: Patient taken off of suction to allow more appropriate mobilization. She continues to have clogging of the tube with cellular debris. Flushing done during the day with brisk output at least the coughing and chest wall pain. Patient's output continues to be greater than 300. No change in fluid color at this point. Patient continues to be amenable to next procedure, debating role of pleurodesis versus PleurX at this point. Critical Care Note Critical care time (min.): 0 Exam Vital Signs Temp Pulse Resp BP Pulse Ox O2 Del Method O2 Flow Rate 97.1 F 92 17 119/67 94 L Nasal Cannula 3 12/31/24 20:00 12/31/24 20:00 12/31/24 20:00 12/31/24 20:00 12/31/24 20:00 12/31/24 20:00 12/31/24 20:00 Narrative Exam GEN: Able to speak in full sentences HEENT: Moist mucous membranes NECK: No JVD CHEST: Lateral left-sided chest tube with serous output, continues to be greater than 200cc in 24 hours, appropriate tidaling after clearance with flush CVS: S1/S2+, no rubs, murmurs, gallops PULM: Absent breath sounds at both bases ABD: Soft, nontender, nondistended, bowel sounds present EXT: No clubbing or cyanosis NEURO: nonfocal on gross examination PSYCH: Patient remains cheerful and is adequate historian, appropriate mood and affect Physical Exam Completion Physical Exam Complete?: Yes Objective - Clinical Engineer Labs 12/31/24 05:13 12/31/24 05:13 Labs: Laboratory Results - last 24 hr 12/31/24 05:13 WBC 16.5 H RBC 4.96 Hgb 14.2 Hct 43.8 MCV 88 MCH 28.6 MCHC 32.4 RDW Std Deviation 44.8 Plt Count 331 Neut % (Auto) 66 Lymph % (Auto) 6 L [place] % (Auto) 9 Eos % (Auto) 18 H Baso % (Auto) 1 Neut # (Auto) 11.0 H Lymph # (Auto) 0.9 L [place] # (Auto) 1.5 H Eos # (Auto) 2.9 H Baso # (Auto) 0.1 Immature Gran # (Auto) 0.14 H Absolute Nucleated RBC 0.00 Immature Gran % 1 H Nucleated RBC % 0 Sodium 136 Potassium 3.6 Chloride 98 Carbon Dioxide 27.6 Anion Gap 10 BUN 8 L Creatinine 0.5 L Estim Creat Clear Calc 123.7 eGFR > 60 BUN/Creatinine Ratio 16 Glucose 71 L Calculated Osmolality 268 L Calcium 8.7 Corrected Calcium 8.9 Phosphorus 3.2 Magnesium 1.7 Total Bilirubin 0.4 AST 10 ALT < 7 L Alkaline Phosphatase 69 Total Protein 5.6 L Albumin 3.8 Globulin 1.8 L Albumin/Globulin Ratio 2.1 Assessment & Plan Additional Plan Additional Plan: Right hydropneumothorax Left pleural effusion, malignant Acute hypoxic respiratory failure Continued high output I suspect that doxycycline pleurodesis will be unsuccessful Continue to flush twice a day at least Plan to evaluate tomorrow for potential PleurX catheter with interventional radiology Continue pain management with [place] and morphine Promote mobilization Patient continues to require low-dose supplemental oxygen, is on none at home Will need ambulatory saturation prior to discharge Provider Notation Provider Notation: Although this document has been carefully reviewed, there may still be some phonetic and other typographical errors. These errors are purely grammatical due to imperfections in the software program and should not be construed in any way to compromise the substance of the patient's medical care during this visit. Thank you for the opportunity and privilege in assisting you with this patient's care and management.
[2024-12-31] VITALS (13 sets, daily range): BP systolic 108–127; BP diastolic 67–85; PULSE 78–100; RESP 13–33; TEMP 36–36.4; O2SAT 94–100
[2024-12-31] MEDS: HYDROcodone/APAP 5/325 TABLET 1 TAB PO ×5 (00:11→20:23)
[2024-12-31] MEDS: ALBUTEROL/IPRATROPIUM (Duoneb) RT SOL 3 ML NEBU INH ×5 (01:16→22:21)
[2024-12-31] MEDS: BENZONATATE 100 MG CAPSULE PO ×3 (05:33→20:23)
[2024-12-31] MEDS: LEVOTHYROXINE SODIUM 100 MCG TABLET PO (05:33)
[2024-12-31 05:56] LABS: Basophils # (Auto) 0.1 Thou/mm3 (0.0-0.2); Basophils % (Auto) 1 % (0-2.5); Eosinophils # (Auto) 2.9 Thou/mm3 (0.0-0.5); Eosinophils % (Auto) 18 % (0-10); Hematocrit 43.8 % (36.0-46.0); Hemoglobin 14.2 g/dL (12.0-16.0); Immature Granulocytes Auto 0.14 Thou/mm3 (0.00-0.00); Lymphocytes # (Auto) 0.9 Thou/mm3 (1.0-4.8); Lymphocytes % (Auto) 6 % (10-50); Mean Corpuscular HGB Conc 32.4 g/dl (31.0-37.0); Mean Corpuscular Hemoglobin 28.6 pg (25.0-35.0); Mean Corpuscular Volume 88 fL (80-100); Monocytes # (Auto) 1.5 Thou/mm3 (0.0-0.8); Monocytes % (Auto) 9 % (0-12); Neutrophils # (Auto) 11.0 Thou/mm3 (1.8-7.7); Neutrophils % (Auto) 66 % (37-80); Nucleated Red Blood Cell # 0.00 Thou/mm3 (0.00-0.00); Nucleated Red Blood Cell % 0 /100 WBC (0); Platelet Count 331 Thou/mm3 (140-440); RDW Standard Deviation 44.8 fL (36.4-46.3); Red Blood Count 4.96 Miln/mm3 (4.00-5.20); White Blood Count 16.5 Thou/mm3 (3.6-11.0)
[2024-12-31 06:28] LABS: Alanine Aminotransferase < 7 U/L (10-49); Albumin, Serum 3.8 gm/dL (3.4-4.8); Albumin/Globulin Ratio 2.1 (1.2-2.2); Alkaline Phosphatase 69 U/L (46-116); Anion Gap 10 (7-16); Aspartate Amino Transferase 10 U/L (0-34); BUN/Creatinine Ratio 16 Ratio (12-20); Bilirubin,Total 0.4 mg/dL (0.3-1.2); Blood Urea Nitrogen 8 mg/dL (9-23); Calcium 8.7 mg/dL (8.3-10.6); Calcium (Corrected) 8.9 mg/dL (8.5-10.1); Carbon Dioxide 27.6 mMol/L (20.0-31.0); Chloride 98 mMol/L (98-107); Creatinine (Component) 0.5 mg/dL (0.6-1.3); Estimated Creatinine Clearance 123.7 mL/min (>60); Globulin 1.8 gm/dL (2.3-3.5); Glucose 71 mg/dL (74-106); Magnesium 1.7 mg/dL (1.6-2.6); Osmolality,Calculated 268 (275-295); Phosphorous 3.2 mg/dL (2.4-5.1); Potassium 3.6 mMol/L (3.4-5.1); Sodium 136 mMol/L (136-145); Total Protein 5.6 gm/dL (5.7-8.2); eGFR > 60 See Note
--- NOTE | 2024-12-31 07:58 | ESPR_ITS ---
<Statement entered by Nasreen Ramirez MD - 01/01/25 05:12> Patient was seen and examined at bedside. I agree on the assessment and plan on this note as documented by resident Noé Henry DO PGY1. 64-year-old female admitted for bilateral pleural effusion in setting of malignancy, patient has right hydropneumothorax, left side pleural effusion was drained by chest tube placement, pulmonology was consulted and further plan was to possibly do pleurodesis however patient continues to have high output from the left side, decision made to place a PleurX catheter. Ultrasound done today by interventional radiology shows not enough fluid in the left lung, chest tube was unclamped. Will attempt PleurX catheter placement on Tuesday, patient will be reassessed in a.m. and chest tube will be clamped. Otherwise patient complains of some dysphagia, will consult speech therapy. Will continue to monitor patient, anticipate discharge on hospice care for management of PleurX catheter. Case discussed with attending DO Nasreen Neville MD PGY-2 Documentation for date of: 12/31/24 Subjective Subjective Interval history: PleurX cathether placement and discharge her on tuesday 01/02. No Overnight events. Labs reviewed and patient examined at the bedside. Denies chest pain, palpation, SOB, abdominal pain, N/V, fevers or chills. Exam Vital Signs Temp Pulse Resp BP Pulse Ox O2 Del Method O2 Flow Rate 97.0 F 97 18 108/72 95 Nasal Cannula 3 12/31/24 07:50 12/31/24 07:50 12/31/24 07:50 12/31/24 07:50 12/31/24 07:50 12/31/24 07:50 12/31/24 07:50 Narrative Exam General: No acute distress, well nourished, AAO x3 Eye: Normal conjunctiva, no scleral icterus HENT: Normocephalic, atraumatic, hearing intact to conversation at normal volume, moist oral mucosa Neck: Supple, non-tender, no JVD, no lymphadenopathy Lungs: Symmetric chest rise, No wheezing, rhonchi, crackles, Decreased breathe sounds in bilateral lung bases. Chest tube noted. Heart: Peripheral pulses intact bilaterally, Regular Rate and Rhythm. Abdomen: Soft, non-tender, non-distended, no palpable masses Musculoskeletal: Normal range of motion and strength, No cyanosis or edema, No visible joint swelling Skin: Skin is warm, dry, no rashes or lesions. Psychiatric: Cooperative, appropriate mood and affect, Awake and alert, not agitated Neuro: Cranial nerves II-XII grossly intact. Strength 5/5 throughout. Sensations intact to light touch. Objective Labs 01/02/25 05:49 01/02/25 04:52 Labs: Laboratory Results - last 24 hr 12/31/24 05:13 WBC 16.5 H RBC 4.96 Hgb 14.2 Hct 43.8 MCV 88 MCH 28.6 MCHC 32.4 RDW Std Deviation 44.8 Plt Count 331 Neut % (Auto) 66 Lymph % (Auto) 6 L [place] % (Auto) 9 Eos % (Auto) 18 H Baso % (Auto) 1 Neut # (Auto) 11.0 H Lymph # (Auto) 0.9 L Bee # (Auto) 1.5 H Eos # (Auto) 2.9 H Baso # (Auto) 0.1 Immature Gran # (Auto) 0.14 H Absolute Nucleated RBC 0.00 Immature Gran % 1 H Nucleated RBC % 0 Sodium 136 Potassium 3.6 Chloride 98 Carbon Dioxide 27.6 Anion Gap 10 BUN 8 L Creatinine 0.5 L Estim Creat Clear Calc 123.7 eGFR > 60 BUN/Creatinine Ratio 16 Glucose 71 L Calculated Osmolality 268 L Calcium 8.7 Corrected Calcium 8.9 Phosphorus 3.2 Magnesium 1.7 Total Bilirubin 0.4 AST 10 ALT < 7 L Alkaline Phosphatase 69 Total Protein 5.6 L Albumin 3.8 Globulin 1.8 L Albumin/Globulin Ratio 2.1 Quality Measures Quality Measures VTE prophylaxis Advance care planning discussed with:: patient and other Assessment & Plan Assessment Current Active Medications: Generic Name Dose Route Start Last Admin Trade Name Freq PRN Reason Stop Dose Admin Acetaminophen 650 mg 12/23/24 05:49 Acetaminophen 325 Mg Tablet PO 01/22/25 05:48 Q6H PRN Fever >100.4 or pain 1-3 Hydrocodone Bitart/Acetaminophen 1 tab 12/30/24 02:25 12/31/24 04:21 Hydrocodone/Apap 5/325 Tablet PO 01/04/25 02:24 1 tab Q4HR PRN Administration Pain 7-10 Hydrocodone Bitart/Acetaminophen 1 tab 12/30/24 21:00 12/30/24 20:06 Hydrocodone/Apap 5/325 Tablet PO 01/04/25 20:59 1 tab HS CHAPARRO Administration Albuterol/Ipratropium 3 ml 12/23/24 07:00 12/31/24 06:11 Albuterol/Ipratropium (Duoneb) Rt Zo 3 Ml Nebu INH 01/22/25 06:59 3 ml Q6HRRT CHAPARRO Administration Albuterol/Ipratropium 3 ml 12/30/24 03:46 Albuterol/Ipratropium (Duoneb) Rt Zo 3 Ml Nebu INH 01/29/25 03:45 Q2HR PRN SHORTNESS OF BREATH OR WHEEZE Benzonatate 100 mg 12/30/24 11:00 12/31/24 05:33 Benzonatate 100 Mg Capsule PO 01/29/25 10:59 100 mg Q8HR CHAPARRO Administration Protocol Docusate Sodium 100 mg 12/23/24 09:00 12/30/24 08:51 Docusate Sod 100 Mg Capsule PO 01/22/25 08:59 100 mg QDAY CHAPARRO Administration Protocol Guaifenesin 100 mg 12/27/24 22:20 12/29/24 05:40 Guaifenesin Syrup 200 Mg/10 Ml Udc PO 01/26/25 22:19 100 mg QID PRN Administration COUGH Protocol Heparin Sodium (Porcine) 5,000 unit 12/25/24 21:00 12/30/24 20:07 Heparin Sod Inj 5000 Unit/Ml Vial SC 01/08/25 20:59 5,000 unit On Hold: 12/31/24 07:56 Q12HR CHAPARRO Administration Levothyroxine Sodium 100 mcg 12/25/24 06:00 12/31/24 05:33 Levothyroxine Sodium 100 Mcg Tablet PO 01/24/25 05:59 100 mcg ACBR CHAPARRO Administration Ondansetron HCl 4 mg 12/25/24 21:56 12/29/24 20:16 Ondansetron Inj 2 Mg/Ml Inj 2 Ml IVP 01/24/25 21:55 4 mg Q6HR PRN Administration NAUSEA OR VOMITING Protocol Pantoprazole Sodium 40 mg 12/23/24 09:00 12/30/24 08:50 Pantoprazole Inj 40 Mg Vial IVP 01/22/25 08:59 40 mg QDAY CHAPARRO Administration Sertraline HCl 50 mg 12/23/24 09:00 12/30/24 08:51 Sertraline Hcl 25 Mg Tablet PO 01/22/25 08:59 50 mg QDAY CHAPARRO Administration Plan Mrs. Andrew is a 64-year-old female past medical significant of asthma, breast cancer s/p mastectomy 2017, thyroid cancer s/p thyroidectomy 2021 and radiation therapy, recently admitted for acute hypoxic respiratory failure secondary to right large pleural effusion discharged 11/20 presenting today 12/23 with similar complaint of SOB. #Acute hypoxic respiratory failure 03/25 #Left sided loculated pleural effusion 03/25 #Suspected malignant effusion, metastatic breast cancer #Hydropneumothorax right lung #Status post thoracentesis 11/07/24 and 11/08/24 #Asthma, by history #Stage IV breast cancer On initial presentation patient speaking in short sentences oxygen saturation 86% on 5L nasal cannula. Recent admission of similar presentation revealed exudative effusion from malignant metastases. Patient established with oncology outpatient, was transferred out for decortication however no intervention was done because of stage IV breast cancer. Case discussed with restaurant crew, lung ultrasound performed at bedside patient has loculated pleural effusion not enough for thoracentesis, will reassess in a.m. possibly may need chest tube. -Blood Cx (12/23) has been negative for 5 days -Received Chest tube placement for pleural effusion in left lung (12/24/2024) -12/25: Patient drained a total of 3.7 L. Clear pleural followed, pleural WBC 663, pleural LDH 113, pleural total protein 4.0, pleural glucose 104. Considering, serum LDH 158, serum total protein 6.3, patient has exudative pleural effusion likely secondary to malignancy. -12/26: A total of 410ml has been drained from left percutaneous chest tube. 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 -IR deferred planned right upper lobe lung biopsy after identifying consolidation surrounding the lesion on imaging. Instead IR recommended proceeding with a CT guided biopsy of the left apical lung nodule. Oncology was informed and agreed with the revised plan. -Status post Left upper lobe lung mass pulmonary biopsy (12/27/2024). -Post biopsy CT (12/27) was performed which showed a small, less than 5% pneumothorax without evidence of interval progression. -CXR(12/27/2024) showed stable 5 mm left apical pneumothorax. -Repeat CXR (12/28/2024): showed presence of minimal left apical pneumothorax, appearing mildly improved. Also showed stable appearing subcutaneous emphysema of left lateral chest wall extending into the lower neck. Lastly, there were 2 points of kinking of left pleural catheter. -Discussed the case with Oncology, Dr. Flowers. Lung biopsy confirms malignancy consistent with breast primary. Prognostic markers including ER/VT receptors and HER2/claudio results are still pending. -Bank Teller Machine Mechanic, Dr. Nino flushed the chest tube, which resulted 40 mL output with viscous and cellular debris's. Recommended patient to mobilize her body for better drainage and continuous flow. Repositioning of the chest tube was unnecessary. Plan: -Continue DuoNebs q6h, DuoNebs every 2 hours as needed - Tessalon every 8 hours -[place] 5 every 4 hours as needed, [place] 5 at night @2100 - Catheter to be flushed today -Supplemental O2, titrate as tolerated to maintain SpO2 >93% -Incentive spirometry -Pulmonology consulted, appreciate recommendations. -Oncology consulted, appreciate recommendations -Pending Pleural Fluid culture. -Patient's PET scan scheduled as outpatient next (01/04) at [facility] for staging purposes. Plan to discharge patient by next tuesday at the latest if possible. --PleurX catheter and discharge patient on 01/02 #Hypothyroidism #Hx thyroid cancer s/p thyroidectomy 2021 No current active symptoms of hyperthyroid currently. TSH >100 free T4 0.86 Free T3 1.7 Plan: -Increased levothyroxine dosage from 75 mcg/day to 100mcg/day. -Outpatient titration of medication #Hx of pressure injury, coccyx, stage III Patient reports frequent back pain and it was noted that the patient had a possible pressure injury and her coccyx area. Per last admission, the wound staging is stage III without any drainage or order. Plan: -Referral to wound care -Continue to monitor #Depression - Continue home dose sertraline Health Maintenance: Code status: Full code DVT prophylaxis: Heparin every 12 hours GI prophylaxis: Protonix 40mg IVP QD Diet: Regular diet [place]: None Lines: PIV Supplemental O2: Nasal cannula Disposition: Tele Assessment and plan discussed with my attending physician Dr. Sanon and Dr. Ramirez (PGY-2) Dr. Henry (PGY-1) - Internal medicine resident Attending Provider Attestation/Addendum I have discussed and was present for the essential components of the history, physical examination, diagnosis, and treatment plan with the resident. I agree with the patient's care as documented by the resident and amended herein by me. Andrzej Sanon DO. Although this document has been carefully reviewed, there may still be some phonetic and other typographical errors. These errors are purely grammatical due to imperfections in the software program and should not be construed in any way to compromise the substance of the patient's medical care during this visit.
[2024-12-31] MEDS: DOCUSATE SOD 100 MG CAPSULE PO (09:54)
[2024-12-31] MEDS: SERTRALINE HCL 25 MG TABLET 50 MG PO (09:54)
--- NOTE | 2024-12-31 11:16 | PC.SS ---
rounding note: Patient pending pleurx cath placement then d/c home. HOME HEALTH SPECIALIST informed
--- NOTE | 2024-12-31 11:49 | XR_ITS ---
EXAMINATION: Ultrasound right hemithorax Ultrasound left hemithorax Date and time: December 31, 2024, 1306 hours INDICATIONS: History malignant pleural effusions TECHNIQUE AND FINDINGS: High-resolution grayscale sonographic images right and left hemithoraces Mild to moderate right pleural fluid Mild left pleural fluid IMPRESSION: Mild to moderate right pleural fluid Mild left pleural fluid
[2024-12-31] MEDS: POTASSIUM CHL 10 mEq IVPB 10 MEQ/100 ML BAG 100 MEQ IV ×2 (12:42→13:41)
[2024-12-31] MEDS: Magnesium Sulfate 2 GM Ivpb 2 GM/50 ML BAG IV (12:42)
--- NOTE | 2024-12-31 12:52 | PC.NURSE ---
recvd order for pleurx drain insertion. Went over case with Dr. mae. Per doctor Ravinder, not enough fluid to put in a plurx drain. Recommending bilateral hemithorax ultrasounds to determine fluid amount.
--- NOTE | 2024-12-31 12:54 | PC.NURSE ---
SWATI Valencia aware of Dr. Daniel recommendation.
--- NOTE | 2024-12-31 14:22 | PC.CC ---
Addendum entered by Nivia Lim RN 12/31/24 16:34: 1542: spoke to Dr. Ramirez to inform him that there aren't any HH agencies who will manage the pleurix drain. Pt will have to be on hospice as hospice agencies can manage the pleurix drain. He confirmed patient is not ready for hospice. He stated he will discuss with his attending for plan of care. 1427: received call back from [facility], she stated they can only manage the pleurix drain if patient is on hospice and not receiving treatment. I informed her patient is not ready for hospice at this time. Original Note: received call earlier today from SHREE Leyva regarding HH agency to manage pleurix drain. Reached out to [facility] stated they do not manage them. I reached out to Sneha with [facility], left message to call me back.
[2024-12-31] MEDS: POTASSIUM CHL 10 mEq IVPB 10 MEQ/100 ML BAG 25 MEQ IV ×2 (14:36→19:45)
[2024-12-31] MEDS: HEPARIN SOD INJ 5000 UNIT/ML VIAL SC (20:23)
--- NOTE | 2024-12-31 21:33 | ESPR_ITS ---
Documentation for date of: 12/31/24 Subjective Subjective Interval history: Patient continues to have high output. Flushed overnight with minimal output however after I did function at bedside this morning immobilized patient, had nearly 250 cc out within 15 minutes. Patient having cough and chest pain secondary to this. [place] being given for her own comfort. Patient also with gagging and vomiting secondary to the cough. We did clamp the tube in anticipation for potential role of PleurX catheter. However output makes pleurodesis less likely to be successful at this point. Critical Care Note Critical care time (min.): 0 Exam Vital Signs Temp Pulse Resp BP Pulse Ox O2 Del Method O2 Flow Rate 97.1 F 92 17 119/67 94 L Nasal Cannula 3 12/31/24 20:00 12/31/24 20:00 12/31/24 20:00 12/31/24 20:00 12/31/24 20:00 12/31/24 20:00 12/31/24 20:00 Narrative Exam GEN: Able to speak in full sentences HEENT: Moist mucous membranes NECK: No JVD CHEST: Lateral left-sided chest tube with serous, some serosanguinous after flush output, continues to be greater than 300cc in 24 hours CVS: S1/S2+, no rubs, murmurs, gallops PULM: Absent breath sounds at both bases ABD: Soft, nontender, nondistended, bowel sounds present EXT: No clubbing or cyanosis NEURO: nonfocal on gross examination PSYCH: Patient remains cheerful and is adequate historian, appropriate mood and affect Physical Exam Completion Physical Exam Complete?: Yes Objective - Doctor Of Medicine Labs 12/31/24 05:13 12/31/24 05:13 Labs: Laboratory Results - last 24 hr 12/31/24 05:13 WBC 16.5 H RBC 4.96 Hgb 14.2 Hct 43.8 MCV 88 MCH 28.6 MCHC 32.4 RDW Std Deviation 44.8 Plt Count 331 Neut % (Auto) 66 Lymph % (Auto) 6 L [place] % (Auto) 9 Eos % (Auto) 18 H Baso % (Auto) 1 Neut # (Auto) 11.0 H Lymph # (Auto) 0.9 L [place] # (Auto) 1.5 H Eos # (Auto) 2.9 H Baso # (Auto) 0.1 Immature Gran # (Auto) 0.14 H Absolute Nucleated RBC 0.00 Immature Gran % 1 H Nucleated RBC % 0 Sodium 136 Potassium 3.6 Chloride 98 Carbon Dioxide 27.6 Anion Gap 10 BUN 8 L Creatinine 0.5 L Estim Creat Clear Calc 123.7 eGFR > 60 BUN/Creatinine Ratio 16 Glucose 71 L Calculated Osmolality 268 L Calcium 8.7 Corrected Calcium 8.9 Phosphorus 3.2 Magnesium 1.7 Total Bilirubin 0.4 AST 10 ALT < 7 L Alkaline Phosphatase 69 Total Protein 5.6 L Albumin 3.8 Globulin 1.8 L Albumin/Globulin Ratio 2.1 Assessment & Plan Additional Plan Additional Plan: Right hydropneumothorax Left pleural effusion, malignant At this point, output continues to be elevated and success of pleurodesis is unlikely given rapid reaccumulation of fluid Continue with adequate pain control and given tomorrow is a holiday, will leave unclamped to allow passive drainage Follow-up tomorrow a.m. to reassess and will need to be flushed overnight, overnight resident will perform this at bedside Patient counseled extensively on plan for PleurX catheter and remains agreeable that this will allow her to continue to drain appropriately at home I did encourage her to watch videos on PleurX catheter so that she can become familiar along with her family members I will sign out patient to oncoming forensic psychologist to be able to continue to further assist in management I did ambulate the patient today and she did desaturate to 86% on room air with a short distance using walker. She did require 5 L to recover when she returned to the bed. Continue to work with PT/OT Optimize pain management Promote p.o. intake Defer ongoing use of Lasix to the medicine team Provider Notation Provider Notation: Although this document has been carefully reviewed, there may still be some phonetic and other typographical errors. These errors are purely grammatical due to imperfections in the software program and should not be construed in any way to compromise the substance of the patient's medical care during this visit. Thank you for the opportunity and privilege in assisting you with this patient's care and management.
[2025-01-01] VITALS (13 sets, daily range): BP systolic 101–145; BP diastolic 52–84; PULSE 78–123; RESP 16–36; TEMP 36.1–36.7; O2SAT 88–100; BMI 25.4
[2025-01-01] MEDS: LIDOCAINE HCL 1% 20 ML VIAL 5 ML INFL
[2025-01-01] MEDS: HYDROcodone/APAP 5/325 TABLET 1 TAB PO ×4 (00:08→20:08)
[2025-01-01] MEDS: BENZONATATE 100 MG CAPSULE PO ×5 (00:09→23:04)
--- NOTE | 2025-01-01 00:12 | EVENTNT_ITS ---
Documentation for date of: 01/01/25 Event Note Event Note: Removal of Chest Tube due to leakage Nurse called party plan demonstrator team stating that patient's chest tube was leaking. Upon evaluation, area appeared soaked through with draining worsening with cough. Drainage was serosanginous. She denied any pain or SOB at the time. Per nursing, tube had been clamped from 10am-5pm. Most recent documented output was 325cc. Distribution Lineman was contacted. Patient is to have pleurX catheter placed on Tuesday. He stated to remove chest tube after flushes failed to express a clot. Chest tube was removed in a sterile fashion while patient was making a Humming sound, and two sutures placed for closure under injecting 2 cc of lidocaine to numb the skin. Patient tolerated this well. Post procedure xray is pending. Case discussed with attending Dr. Nino and senior Dr. Beckman. Ashley Law, PGY-2
--- NOTE | 2025-01-01 00:12 | XR_ITS ---
EXAMINATION: AP chest single view TECHNIQUE: AP portable semiupright chest single view Date and time: January 01, 2025, 0221 hours, comparison December 29, 2024 INDICATIONS: Status post removal of chest tube FINDINGS: Mild prominence left ventricle Prominent vascular congestion Edema and/or pneumonia throughout the lung velazquez Suspicious for small loculated pneumothorax inferior to the right lung Mild bilateral pleural disease Right axillary surgical clips IMPRESSION: Mild enlargement left ventricle Pneumonia and/or edema throughout the lung velazquez Suspicious for a small loculated pneumothorax inferior to the right lung Mild bilateral pleural disease
[2025-01-01] MEDS: ALBUTEROL/IPRATROPIUM (Duoneb) RT SOL 3 ML NEBU INH ×5 (01:40→23:08)
[2025-01-01] MEDS: LEVOTHYROXINE SODIUM 100 MCG TABLET PO (05:23)
[2025-01-01 06:21] LABS: Basophils # (Auto) 0.1 Thou/mm3 (0.0-0.2); Basophils % (Auto) 1 % (0-2.5); Eosinophils # (Auto) 2.6 Thou/mm3 (0.0-0.5); Eosinophils % (Auto) 13 % (0-10); Hematocrit 43.2 % (36.0-46.0); Hemoglobin 14.3 g/dL (12.0-16.0); Immature Granulocytes Auto 0.20 Thou/mm3 (0.00-0.00); Lymphocytes # (Auto) 1.0 Thou/mm3 (1.0-4.8); Lymphocytes % (Auto) 5 % (10-50); Mean Corpuscular HGB Conc 33.1 g/dl (31.0-37.0); Mean Corpuscular Hemoglobin 28.8 pg (25.0-35.0); Mean Corpuscular Volume 87 fL (80-100); Monocytes # (Auto) 1.5 Thou/mm3 (0.0-0.8); Monocytes % (Auto) 8 % (0-12); Neutrophils # (Auto) 14.1 Thou/mm3 (1.8-7.7); Neutrophils % (Auto) 72 % (37-80); Nucleated Red Blood Cell # 0.00 Thou/mm3 (0.00-0.00); Nucleated Red Blood Cell % 0 /100 WBC (0); Platelet Count 381 Thou/mm3 (140-440); RDW Standard Deviation 45.3 fL (36.4-46.3); Red Blood Count 4.96 Miln/mm3 (4.00-5.20); White Blood Count 19.5 Thou/mm3 (3.6-11.0)
[2025-01-01 06:35] LABS: Alanine Aminotransferase < 7 U/L (10-49); Albumin, Serum 3.6 gm/dL (3.4-4.8); Albumin/Globulin Ratio 2.0 (1.2-2.2); Alkaline Phosphatase 68 U/L (46-116); Anion Gap 10 (7-16); Aspartate Amino Transferase 10 U/L (0-34); BUN/Creatinine Ratio 14 Ratio (12-20); Bilirubin,Total 0.3 mg/dL (0.3-1.2); Blood Urea Nitrogen 7 mg/dL (9-23); Calcium 8.5 mg/dL (8.3-10.6); Calcium (Corrected) 8.8 mg/dL (8.5-10.1); Carbon Dioxide 27.4 mMol/L (20.0-31.0); Chloride 99 mMol/L (98-107); Creatinine (Component) 0.5 mg/dL (0.6-1.3); Estimated Creatinine Clearance 123.7 mL/min (>60); Globulin 1.8 gm/dL (2.3-3.5); Glucose 84 mg/dL (74-106); Magnesium 1.8 mg/dL (1.6-2.6); Osmolality,Calculated 268 (275-295); Phosphorous 3.7 mg/dL (2.4-5.1); Potassium 4.4 mMol/L (3.4-5.1); Sodium 136 mMol/L (136-145); Total Protein 5.4 gm/dL (5.7-8.2); eGFR > 60 See Note
--- NOTE | 2025-01-01 08:26 | ESPR_ITS ---
<Statement entered by Wolf Prather MD - 01/01/25 16:29> Patient seen and examined at bedside. I discussed and supervised with the internal revenue service agent physician who took care of this patient. I personally saw and examined the patient. I agree with most of the assessment and plan. Plan of care discussed with attending Dr. Rosales. Wolf Prather MD PGY-2 Documentation for date of: 01/01/25 Subjective Subjective Interval history: The left percutaneous chest tube was leaking overnight. It was removed by the night team and the site was sutured. On the previous day, catheter placement was deferred after ulstrasound assessment by IR revealed inadequate fluid accumulation. Planned to receive PleurX Catheter on tuesday and discharged to Hospice care for management of pleurX catheter. PET scan on 01/03 in [facility]. Exam Vital Signs Temp Pulse Resp BP Pulse Ox O2 Del Method O2 Flow Rate 97.3 F 81 17 117/60 99 Nasal Cannula 2 01/01/25 08:00 01/01/25 08:00 01/01/25 08:00 01/01/25 08:00 01/01/25 08:00 01/01/25 08:00 01/01/25 08:00 Narrative Exam General: No acute distress, well nourished, AAO x3 Eye: Normal conjunctiva, no scleral icterus HENT: Normocephalic, atraumatic, hearing intact to conversation at normal volume, moist oral mucosa Neck: Supple, non-tender, no JVD, no lymphadenopathy Lungs: Symmetric chest rise, No wheezing, rhonchi, crackles, Decreased breathe sounds in bilateral lung bases. Heart: Peripheral pulses intact bilaterally, Regular Rate and Rhythm. Abdomen: Soft, non-tender, non-distended, no palpable masses Musculoskeletal: Normal range of motion and strength, No cyanosis or edema, No visible joint swelling Skin: Skin is warm, dry, no rashes or lesions. Psychiatric: Cooperative, appropriate mood and affect, Awake and alert, not agitated Neuro: Cranial nerves II-XII grossly intact. Strength 5/5 throughout. Sensations intact to light touch. Objective Labs 01/02/25 05:49 01/02/25 04:52 Labs: Laboratory Results - last 24 hr 01/01/25 05:37 WBC 19.5 H RBC 4.96 Hgb 14.3 Hct 43.2 MCV 87 MCH 28.8 MCHC 33.1 RDW Std Deviation 45.3 Plt Count 381 D Neut % (Auto) 72 Lymph % (Auto) 5 L [place] % (Auto) 8 Eos % (Auto) 13 H Baso % (Auto) 1 Neut # (Auto) 14.1 H Lymph # (Auto) 1.0 [place] # (Auto) 1.5 H Eos # (Auto) 2.6 H Baso # (Auto) 0.1 Immature Gran # (Auto) 0.20 H Absolute Nucleated RBC 0.00 Immature Gran % 1 H Nucleated RBC % 0 Sodium 136 Potassium 4.4 D Chloride 99 Carbon Dioxide 27.4 Anion Gap 10 BUN 7 L Creatinine 0.5 L Estim Creat Clear Calc 123.7 eGFR > 60 BUN/Creatinine Ratio 14 Glucose 84 Calculated Osmolality 268 L Calcium 8.5 Corrected Calcium 8.8 Phosphorus 3.7 Magnesium 1.8 Total Bilirubin 0.3 AST 10 ALT < 7 L Alkaline Phosphatase 68 Total Protein 5.4 L Albumin 3.6 Globulin 1.8 L Albumin/Globulin Ratio 2.0 Quality Measures Quality Measures VTE prophylaxis Advance care planning discussed with:: patient and other Assessment & Plan Assessment Current Active Medications: Generic Name Dose Route Start Last Admin Trade Name Freq PRN Reason Stop Dose Admin Acetaminophen 650 mg 12/23/24 05:49 Acetaminophen 325 Mg Tablet PO 01/22/25 05:48 Q6H PRN Fever >100.4 or pain 1-3 Hydrocodone Bitart/Acetaminophen 1 tab 12/30/24 02:25 01/01/25 00:08 Hydrocodone/Apap 5/325 Tablet PO 01/04/25 02:24 1 tab Q4HR PRN Administration Pain 7-10 Hydrocodone Bitart/Acetaminophen 1 tab 12/30/24 21:00 12/31/24 20:23 Hydrocodone/Apap 5/325 Tablet PO 01/04/25 20:59 1 tab HS CHAPARRO Administration Albuterol/Ipratropium 3 ml 12/23/24 07:00 01/01/25 07:14 Albuterol/Ipratropium (Duoneb) Rt Zo 3 Ml Nebu INH 01/22/25 06:59 3 ml Q6HRRT CHAPARRO Administration Albuterol/Ipratropium 3 ml 12/30/24 03:46 12/31/24 22:21 Albuterol/Ipratropium (Duoneb) Rt Zo 3 Ml Nebu INH 01/29/25 03:45 3 ml Q2HR PRN Administration SHORTNESS OF BREATH OR WHEEZE Benzonatate 100 mg 12/31/24 20:15 01/01/25 05:23 Benzonatate 100 Mg Capsule PO 01/30/25 20:14 100 mg Q6HR CHAPARRO Administration Protocol Docusate Sodium 100 mg 12/23/24 09:00 12/31/24 09:54 Docusate Sod 100 Mg Capsule PO 01/22/25 08:59 100 mg QDAY CHAPARRO Administration Protocol Guaifenesin 100 mg 12/27/24 22:20 12/29/24 05:40 Guaifenesin Syrup 200 Mg/10 Ml Udc PO 01/26/25 22:19 100 mg QID PRN Administration COUGH Protocol Heparin Sodium (Porcine) 5,000 unit 12/25/24 21:00 12/31/24 20:23 Heparin Sod Inj 5000 Unit/Ml Vial SC 01/08/25 20:59 5,000 unit On Hold: 12/31/24 23:55 Q12HR CHAPARRO Administration Levothyroxine Sodium 100 mcg 12/25/24 06:00 01/01/25 05:23 Levothyroxine Sodium 100 Mcg Tablet PO 01/24/25 05:59 100 mcg ACBR CHAPARRO Administration Ondansetron HCl 4 mg 12/25/24 21:56 12/29/24 20:16 Ondansetron Inj 2 Mg/Ml Inj 2 Ml IVP 01/24/25 21:55 4 mg Q6HR PRN Administration NAUSEA OR VOMITING Protocol Pantoprazole Sodium 40 mg 12/23/24 09:00 12/31/24 09:53 Pantoprazole Inj 40 Mg Vial IVP 01/22/25 08:59 40 mg QDAY CHAPARRO Administration Sertraline HCl 50 mg 12/23/24 09:00 12/31/24 09:54 Sertraline Hcl 25 Mg Tablet PO 01/22/25 08:59 50 mg QDAY CHAPARRO Administration Plan Mrs. Andrew is a 64-year-old female past medical significant of asthma, breast cancer s/p mastectomy 2018, thyroid cancer s/p thyroidectomy 2022 and radiation therapy, recently admitted for acute hypoxic respiratory failure secondary to right large pleural effusion discharged 11/20 presenting today 12/23 with similar complaint of SOB. #Acute hypoxic respiratory failure 03/25 #Left sided loculated pleural effusion 03/25 #Suspected malignant effusion, metastatic breast cancer #Hydropneumothorax right lung #Status post thoracentesis 11/07/24 and 11/08/24 #Asthma, by history #Stage IV breast cancer On initial presentation patient speaking in short sentences oxygen saturation 86% on 5L nasal cannula. Recent admission of similar presentation revealed exudative effusion from malignant metastases. Patient established with oncology outpatient, was transferred out for decortication however no intervention was done because of stage IV breast cancer. Case discussed with virtual assistant, lung ultrasound performed at bedside patient has loculated pleural effusion not enough for thoracentesis, will reassess in a.m. possibly may need chest tube. -Blood Cx (12/23) has been negative for 5 days -Received Chest tube placement for pleural effusion in left lung (12/24/2024) -12/25: Patient drained a total of 3.7 L. Clear pleural followed, pleural WBC 663, pleural LDH 113, pleural total protein 4.0, pleural glucose 104. Considering, serum LDH 158, serum total protein 6.3, patient has exudative pleural effusion likely secondary to malignancy. -12/26: A total of 410ml has been drained from left percutaneous chest tube. 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 -IR deferred planned right upper lobe lung biopsy after identifying consolidation surrounding the lesion on imaging. Instead IR recommended proceeding with a CT guided biopsy of the left apical lung nodule. Oncology was informed and agreed with the revised plan. -Status post Left upper lobe lung mass pulmonary biopsy (12/27/2024). -Post biopsy CT (12/27) was performed which showed a small, less than 5% pneumothorax without evidence of interval progression. -CXR(12/27/2024) showed stable 5 mm left apical pneumothorax. -Repeat CXR (12/28/2024): showed presence of minimal left apical pneumothorax, appearing mildly improved. Also showed stable appearing subcutaneous emphysema of left lateral chest wall extending into the lower neck. Lastly, there were 2 points of kinking of left pleural catheter. -Discussed the case with Oncology, Dr. Flowers. Lung biopsy confirms malignancy consistent with breast primary. Prognostic markers including ER/ND receptors and HER2/claudio results are still pending. -Life Skills Specialist, Dr. Nino flushed the chest tube, which resulted 40 mL output with viscous and cellular debris's. Recommended patient to mobilize her body for better drainage and continuous flow. Repositioning of the chest tube was unnecessary. -Chest tube was removed on 01/01 because it was leaking. Plan: -Continue DuoNebs q6h, DuoNebs every 2 hours as needed -[place] 5 every 4 hours as needed, [place] 5 at night @2100 -Supplemental O2, titrate as tolerated to maintain SpO2 >93% -Incentive spirometry -Pulmonology consulted, appreciate recommendations. -Oncology consulted, appreciate recommendations -Pending Pleural Fluid culture. -Patient's PET scan scheduled as outpatient next (01/03) at [facility] for staging purposes. Plan to discharge patient by next tuesday at the latest if possible. -PleurX catheter and discharge patient on 01/02 #Hypothyroidism #Hx thyroid cancer s/p thyroidectomy 2021 No current active symptoms of hyperthyroid currently. TSH >100 free T4 0.86 Free T3 1.7 Plan: -Increased levothyroxine dosage from 75 mcg/day to 100mcg/day. -Outpatient titration of medication #Hx of pressure injury, coccyx, stage III Patient reports frequent back pain and it was noted that the patient had a possible pressure injury and her coccyx area. Per last admission, the wound staging is stage III without any drainage or order. Plan: -Referral to wound care -Continue to monitor #Depression - Continue home dose sertraline Health Maintenance: Code status: Full code DVT prophylaxis: Heparin every 12 hours GI prophylaxis: Protonix 40mg IVP QD Diet: Regular diet [place]: None Lines: PIV Supplemental O2: Nasal cannula Disposition: Tele Assessment and plan discussed with my attending physician Dr. Rosales and Dr. Prather (PGY-2) Dr. Henry (PGY-1) - Internal medicine resident Attending Provider Attestation/Addendum I have seen and examined the patient. I was physically present for the shannon portions of the services provided including history, physical exam, diagnosis, treatment plans and orders. I agree with assessment and plan of care as documented by residents. Patient seen and examined at bedside this morning. Appeared comfortable and denied any new complaints. But later during the evening, patient had a rapid response called due to decreased oxygen saturation, noted to have oxygen saturation of 82%, respiratory 20, she was started on oxime mask with recovery of oxygen saturation. CBC CMP and lactate were also ordered. As per the family, patient was also having increased cough. Chest x-ray obtained at the time of the rapid did not show significantly new finding. We will obtain follow-up x-ray tomorrow, if patient has enough fluid, we will plan for PleurX catheter. Even though this this note was carefully revised there may still be minor errors in production truck driver due to voice recognition software. Wiley Rosales MD
[2025-01-01] MEDS: SERTRALINE HCL 25 MG TABLET 50 MG PO (09:04)
[2025-01-01] MEDS: DOCUSATE SOD 100 MG CAPSULE PO (09:05)
[2025-01-01] MEDS: Magnesium Sulfate 2 GM Ivpb 2 GM/50 ML BAG IV (10:20)
--- NOTE | 2025-01-01 14:29 | PD.PUPROG ---
Documentation for date of: 01/01/25 Subjective Subjective Interval history: She reports some fatigue but improved chest pain since the chest tube has been removed Critical Care Note Critical care time (min.): 0 Exam Vital Signs Temp Pulse Resp BP Pulse Ox O2 Del Method O2 Flow Rate 97.6 F 96 36 H 112/68 97 Nasal Cannula 3 01/01/25 12:00 01/01/25 13:26 01/01/25 13:26 01/01/25 12:00 01/01/25 13:26 01/01/25 12:00 01/01/25 13:26 Narrative Exam GEN: Standing upright no acute distress HEENT: Moist mucous membranes NECK: Nontender CHEST: Bilateral diminished CVS: S1/S2 ABD: Soft, nontender, EXT: No edema NEURO: nonfocal on gross examination Physical Exam Completion Physical Exam Complete?: Yes Objective - Division Operations Manager Labs 01/01/25 05:37 01/01/25 05:37 Labs: Laboratory Results - last 24 hr 01/01/25 05:37 WBC 19.5 H RBC 4.96 Hgb 14.3 Hct 43.2 MCV 87 MCH 28.8 MCHC 33.1 RDW Std Deviation 45.3 Plt Count 381 D Neut % (Auto) 72 Lymph % (Auto) 5 L [place] % (Auto) 8 Eos % (Auto) 13 H Baso % (Auto) 1 Neut # (Auto) 14.1 H Lymph # (Auto) 1.0 [place] # (Auto) 1.5 H Eos # (Auto) 2.6 H Baso # (Auto) 0.1 Immature Gran # (Auto) 0.20 H Absolute Nucleated RBC 0.00 Immature Gran % 1 H Nucleated RBC % 0 Sodium 136 Potassium 4.4 D Chloride 99 Carbon Dioxide 27.4 Anion Gap 10 BUN 7 L Creatinine 0.5 L Estim Creat Clear Calc 123.7 eGFR > 60 BUN/Creatinine Ratio 14 Glucose 84 Calculated Osmolality 268 L Calcium 8.5 Corrected Calcium 8.8 Phosphorus 3.7 Magnesium 1.8 Total Bilirubin 0.3 AST 10 ALT < 7 L Alkaline Phosphatase 68 Total Protein 5.4 L Albumin 3.6 Globulin 1.8 L Albumin/Globulin Ratio 2.0 Assessment & Plan Additional Plan Additional Plan: Bilateral malignant pleural effusions Metastatic breast cancer Right trapped lung Agree with prior established plan of having PleurX placed once there is enough pleural effusion to do so. Follow-up daily chest x-rays. She will require PleurX and drainage education. Answered all of her questions to the best of my ability. Provider Notation Provider Notation: Although this document has been carefully reviewed, there may still be some phonetic and other typographical errors. These errors are purely grammatical due to imperfections in the software program and should not be construed in any way to compromise the substance of the patient's medical care during this visit. Thank you for the opportunity and privilege in assisting you with this patient's care and management.
[2025-01-01] MEDS: LACTULOSE SYRUP 20 GM/30 ML UDC PO (17:31)
--- NOTE | 2025-01-01 18:35 | XR_ITS ---
EXAMINATION: AP chest single view TECHNIQUE: AP portable upright chest single view Date and time: January 01, 2025, 1848 hours, comparison January 01, 2025 INDICATION: Shortness of breath today. FINDINGS: Mild enlargement cardiac contour Prominent vascular congestion Abnormal interstitial disease throughout the lungs with rounded dense consolidation versus pulmonary mass in the right upper lobe 18 mm Bilateral pleural fluid moderate to large on the left Right axillary surgical clips IMPRESSION: Mild heart failure Superimposed bilateral extensive pneumonia Follow-up chest films are needed to document clearing of the dense pneumonic consolidation in the right upper lobe
--- NOTE | 2025-01-01 18:48 | EVENTNT_ITS ---
<Statement entered by Wolf Prather MD - 01/02/25 07:20> Patient seen and examined at bedside. I discussed and supervised with the pr internship physician who took care of this patient. I personally saw and examined the patient. I agree with most of the assessment and plan. Plan of care discussed with attending Dr. Bobby Prather MD PGY-2 Documentation for date of: 01/01/25 Event Note Event Note: Rapid event called at 6:46PM for low O2 saturation of 82%. Per nurse, patient was off of nasal cannula. Vitals were 97.2F,HR 96, RR:20. Patient was put on oxy mask 15L and recovered O2 sat in 95%. CBC, CMP, lactate was ordered. Assessment and plan discussed with my attending physician Dr. Rosales and Dr. Prather (PGY-2) Dr. Henry (PGY-1) - Internal medicine resident
[2025-01-01 18:58] LABS: Lactate (Lactic Acid) 2.3 mMol/L (0.4-2.0)
[2025-01-01 19:00] LABS: Basophils # (Auto) 0.1 Thou/mm3 (0.0-0.2); Basophils % (Auto) 1 % (0-2.5); Eosinophils # (Auto) 3.0 Thou/mm3 (0.0-0.5); Eosinophils % (Auto) 15 % (0-10); Hematocrit 45.2 % (36.0-46.0); Hemoglobin 15.2 g/dL (12.0-16.0); Immature Granulocytes Auto 0.23 Thou/mm3 (0.00-0.00); Lymphocytes # (Auto) 1.1 Thou/mm3 (1.0-4.8); Lymphocytes % (Auto) 6 % (10-50); Mean Corpuscular HGB Conc 33.6 g/dl (31.0-37.0); Mean Corpuscular Hemoglobin 29.6 pg (25.0-35.0); Mean Corpuscular Volume 88 fL (80-100); Monocytes # (Auto) 1.5 Thou/mm3 (0.0-0.8); Monocytes % (Auto) 8 % (0-12); Neutrophils # (Auto) 14.2 Thou/mm3 (1.8-7.7); Neutrophils % (Auto) 70 % (37-80); Nucleated Red Blood Cell # 0.00 Thou/mm3 (0.00-0.00); Nucleated Red Blood Cell % 0 /100 WBC (0); Platelet Count 388 Thou/mm3 (140-440); RDW Standard Deviation 46.1 fL (36.4-46.3); Red Blood Count 5.13 Miln/mm3 (4.00-5.20); White Blood Count 20.3 Thou/mm3 (3.6-11.0)
[2025-01-01 19:26] LABS: Alanine Aminotransferase 8 U/L (10-49); Albumin, Serum 3.9 gm/dL (3.4-4.8); Albumin/Globulin Ratio 1.6 (1.2-2.2); Alkaline Phosphatase 79 U/L (46-116); Anion Gap 14 (7-16); Aspartate Amino Transferase 18 U/L (0-34); BUN/Creatinine Ratio 10 Ratio (12-20); Bilirubin,Total 0.3 mg/dL (0.3-1.2); Blood Urea Nitrogen 6 mg/dL (9-23); Calcium 9.1 mg/dL (8.3-10.6); Calcium (Corrected) 9.2 mg/dL (8.5-10.1); Carbon Dioxide 20.8 mMol/L (20.0-31.0); Chloride 100 mMol/L (98-107); Creatinine (Component) 0.6 mg/dL (0.6-1.3); Estimated Creatinine Clearance 103.1 mL/min (>60); Globulin 2.5 gm/dL (2.3-3.5); Glucose 110 mg/dL (74-106); Osmolality,Calculated 268 (275-295); Potassium 4.3 mMol/L (3.4-5.1); Sodium 135 mMol/L (136-145); Total Protein 6.4 gm/dL (5.7-8.2); eGFR > 60 See Note
--- NOTE | 2025-01-01 19:32 | PC.NURSE ---
DR. HAMM NOTIFIED REGARDING RECENT LABS, WBC 20.3, LA 2.3. RESULTS OF CHEST XRAY. PER MD, WILL LOOK THROUGH CHART. NO ORDERS GIVEN AT THIS TIME.
--- NOTE | 2025-01-01 20:25 | PC.NURSE ---
SPOKE [facility] POC, CHARLI (DAUGHTER IN LAW). UPDATED HER ON PT STATUS/SOIL TESTER. CHARLI CONCERNED WITH POSSIBLE RECURRENCE OF PLEURAL EFFUSION AND INCREASE DEMAND OF OXYGEN. PT OXYGEN HAS BEEN TITRATED FROM 15L TO 12L SINCE START OF SHIFT. PT IN BED, NO SOB NOTED. NO SIGNS OF DISTRESS AT THIS TIME. DR. SHEN MADE AWARE THAT CHARLI WOULD LIKE AN UPDATE REGARDING MOST RECENT LABS/ CXR. PHONE # GIVEN.
[2025-01-01 21:55] LABS: Reflex Lactate? Y
[2025-01-01 23:07] LABS: Lactic Acid, 3 HR 1.6 mMol/L (0.4-2.0)
[2025-01-02] VITALS (13 sets, daily range): BP systolic 87–125; BP diastolic 66–100; PULSE 70–109; RESP 12–26; TEMP 36.1–36.7; O2SAT 95–100
[2025-01-02] MEDS: HYDROcodone/APAP 5/325 TABLET 1 TAB PO ×4 (00:05→20:18)
[2025-01-02] MEDS: ALBUTEROL/IPRATROPIUM (Duoneb) RT SOL 3 ML NEBU INH ×5 (02:07→18:11)
[2025-01-02] MEDS: LEVOTHYROXINE SODIUM 100 MCG TABLET PO (05:16)
[2025-01-02] MEDS: BENZONATATE 100 MG CAPSULE PO ×2 (05:16→11:56)
[2025-01-02 06:15] LABS: Basophils # (Auto) 0.1 Thou/mm3 (0.0-0.2); Basophils % (Auto) 1 % (0-2.5); Eosinophils # (Auto) 3.1 Thou/mm3 (0.0-0.5); Eosinophils % (Auto) 16 % (0-10); Hematocrit 46.1 % (36.0-46.0); Hemoglobin 15.0 g/dL (12.0-16.0); Immature Granulocytes Auto 0.21 Thou/mm3 (0.00-0.00); Lymphocytes # (Auto) 1.2 Thou/mm3 (1.0-4.8); Lymphocytes % (Auto) 6 % (10-50); Mean Corpuscular HGB Conc 32.5 g/dl (31.0-37.0); Mean Corpuscular Hemoglobin 28.7 pg (25.0-35.0); Mean Corpuscular Volume 88 fL (80-100); Monocytes # (Auto) 1.4 Thou/mm3 (0.0-0.8); Monocytes % (Auto) 7 % (0-12); Neutrophils # (Auto) 12.9 Thou/mm3 (1.8-7.7); Neutrophils % (Auto) 68 % (37-80); Nucleated Red Blood Cell # 0.00 Thou/mm3 (0.00-0.00); Nucleated Red Blood Cell % 0 /100 WBC (0); Platelet Count 405 Thou/mm3 (140-440); RDW Standard Deviation 46.1 fL (36.4-46.3); Red Blood Count 5.23 Miln/mm3 (4.00-5.20); White Blood Count 18.9 Thou/mm3 (3.6-11.0)
[2025-01-02 06:31] LABS: Alanine Aminotransferase 8 U/L (10-49); Albumin, Serum 3.6 gm/dL (3.4-4.8); Albumin/Globulin Ratio 2.0 (1.2-2.2); Alkaline Phosphatase 72 U/L (46-116); Anion Gap 11 (7-16); Aspartate Amino Transferase 16 U/L (0-34); BUN/Creatinine Ratio 10 Ratio (12-20); Bilirubin,Total 0.3 mg/dL (0.3-1.2); Blood Urea Nitrogen 6 mg/dL (9-23); Calcium 8.3 mg/dL (8.3-10.6); Calcium (Corrected) 8.6 mg/dL (8.5-10.1); Carbon Dioxide 25.6 mMol/L (20.0-31.0); Chloride 101 mMol/L (98-107); Creatinine (Component) 0.6 mg/dL (0.6-1.3); Estimated Creatinine Clearance 103.1 mL/min (>60); Globulin 1.8 gm/dL (2.3-3.5); Glucose 83 mg/dL (74-106); Magnesium 1.8 mg/dL (1.6-2.6); Osmolality,Calculated 272 (275-295); Phosphorous 3.6 mg/dL (2.4-5.1); Potassium 4.5 mMol/L (3.4-5.1); Sodium 138 mMol/L (136-145); Total Protein 5.4 gm/dL (5.7-8.2); eGFR > 60 See Note
--- NOTE | 2025-01-02 07:40 | XR_ITS ---
EXAMINATION: AP chest single view TECHNIQUE: AP portable semiupright chest single view Date and time: January 02, 2025, 0824 hours, comparison January 01, 2025 INDICATIONS: Breast carcinoma diagnosis with pulmonary metastases, history malignant pleural effusions FINDINGS: Mild enlargement cardiac contour Prominent vascular congestion with interstitial nodular disease throughout the lungs Stable bilateral pleural effusions Right axillary surgical clips Prominent osteopenia IMPRESSION: Mild heart failure pattern Extensive interstitial nodular disease throughout the lungs Stable pleural effusions
--- NOTE | 2025-01-02 07:51 | CHAP ---
Patient was visited by a Spiritual Care Volunteer on 01/01/2025 between 1410 and 1712 and received comfort, encouragement and/or prayer.
--- NOTE | 2025-01-02 08:13 | ESPR_ITS ---
<Statement entered by Nasreen Ramirez MD - 01/03/25 19:14> Patient was seen and examined at bedside. I agree on the assessment and plan on this note as documented by resident Dr. Noé Henry DO PGY1. 64-year-old female with past medical history as below admitted for acute hypoxic respiratory failure secondary to bilateral pleural effusions, case discussed with interventional radiology today, not enough fluid in the left pleural space for PleurX placement, they recommend repeating ultrasound in 1 to 2 days. 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 Patient does complain of some dysphagia, patient's dysphagia can be attributed to the underlying respiratory status however speech therapy was consulted, per speech therapy patient is eating/swallowing well. Will continue with monitoring closely of respiratory status, patient will require PleurX prior to discharge. Case discussed with attending Dr.Subash Bobby Ramirez MD PGY-2 Documentation for date of: 01/02/25 Subjective Subjective Interval history: Overnight patient had Rapid event called at 6:46PM for low O2 saturation of 82%. Per nurse, patient was off of nasal cannula. Vitals were 97.2F,HR 96, RR:20. Patient was put on oxy mask 15L and recovered O2 sat in 95%. CBC, CMP, lactate was ordered. The patient's family expressed concern regarding the episode of oxygen desaturation to 82% overnight, noting that the patient's coughing has worsened and is not adequately controlled with Tessalon or albutrol. The cough and O2 desaturation are most likely related to progression of metastatic lung cancer with extensive pulmonary involvement, and a PET scan is required to further evaluate disease extent and guide potential treatment options. The family is also concerned about the patient's dysphagia. However, based on the recent speech therapy evaluation, outpatient management is appropriate at this time, though metastasis to the esophagus remains a consideration and will also require further evaluation with PET imaging. Regarding disposition, the family prefers short-term SNF placement, while the patient wishes to return home. They plan to discuss these options further and inform the medical team of their decision. This morning patient's O2 saturation was 96% on nasal cannula 5 L. Ordered chest x-ray, coag panel and US pleural effusion of left lung. Patient was unable to receive PleurX catheter placement today. If everything is optimal, IR will place PleurX catheter placement. Will need to postpone PET scan schedule. Exam Vital Signs Temp Pulse Resp BP Pulse Ox O2 Del Method O2 Flow Rate 98.1 F 91 15 115/83 96 Nasal Cannula 5 01/02/25 08:00 01/02/25 08:00 01/02/25 08:00 01/02/25 08:00 01/02/25 08:00 01/02/25 08:00 01/02/25 08:00 Narrative Exam General: No acute distress, well nourished, AAO x3 Eye: Normal conjunctiva, no scleral icterus HENT: Normocephalic, atraumatic, hearing intact to conversation at normal volume, moist oral mucosa Neck: Supple, non-tender, no JVD, no lymphadenopathy Lungs: Symmetric chest rise, No wheezing, rhonchi, crackles, Decreased breathe sounds in bilateral lung bases. Heart: Peripheral pulses intact bilaterally, Regular Rate and Rhythm. Abdomen: Soft, non-tender, non-distended, no palpable masses Musculoskeletal: Normal range of motion and strength, No cyanosis or edema, No visible joint swelling Skin: Skin is warm, dry, no rashes or lesions. Psychiatric: Cooperative, appropriate mood and affect, Awake and alert, not agitated Neuro: Cranial nerves II-XII grossly intact. Strength 5/5 throughout. Sensations intact to light touch. Objective Labs 01/03/25 05:40 01/03/25 05:40 Labs: Laboratory Results - last 24 hr 01/01/25 01/01/25 01/02/25 18:44 22:20 04:52 WBC 20.3 H RBC 5.13 Hgb 15.2 Hct 45.2 MCV 88 MCH 29.6 MCHC 33.6 RDW Std Deviation 46.1 Plt Count 388 Neut % (Auto) 70 Lymph % (Auto) 6 L [place] % (Auto) 8 Eos % (Auto) 15 H Baso % (Auto) 1 Neut # (Auto) 14.2 H Lymph # (Auto) 1.1 [place] # (Auto) 1.5 H Eos # (Auto) 3.0 H Baso # (Auto) 0.1 Immature Gran # (Auto) 0.23 H Absolute Nucleated RBC 0.00 Immature Gran % 1 H Nucleated RBC % 0 Sodium 135 L 138 Potassium 4.3 4.5 Chloride 100 101 Carbon Dioxide 20.8 25.6 Anion Gap 14 11 BUN 6 L 6 L Creatinine 0.6 0.6 Estim Creat Clear Calc 103.1 103.1 eGFR > 60 > 60 BUN/Creatinine Ratio 10 L 10 L Glucose 110 H 83 Calculated Osmolality 268 L 272 L Lactic Acid 2.3 H 1.6 Calcium 9.1 8.3 Corrected Calcium 9.2 8.6 Phosphorus 3.6 Magnesium 1.8 Total Bilirubin 0.3 0.3 AST 18 16 ALT 8 L 8 L Alkaline Phosphatase 79 72 Total Protein 6.4 5.4 L Albumin 3.9 3.6 Globulin 2.5 1.8 L Albumin/Globulin Ratio 1.6 2.0 01/02/25 05:49 WBC 18.9 H RBC 5.23 H Hgb 15.0 Hct 46.1 H MCV 88 MCH 28.7 MCHC 32.5 RDW Std Deviation 46.1 Plt Count 405 Neut % (Auto) 68 Lymph % (Auto) 6 L [place] % (Auto) 7 Eos % (Auto) 16 H Baso % (Auto) 1 Neut # (Auto) 12.9 H Lymph # (Auto) 1.2 [place] # (Auto) 1.4 H Eos # (Auto) 3.1 H Baso # (Auto) 0.1 Immature Gran # (Auto) 0.21 H Absolute Nucleated RBC 0.00 Immature Gran % 1 H Nucleated RBC % 0 Sodium Potassium Chloride Carbon Dioxide Anion Gap BUN Creatinine Estim Creat Clear Calc eGFR BUN/Creatinine Ratio Glucose Calculated Osmolality Lactic Acid Calcium Corrected Calcium Phosphorus Magnesium Total Bilirubin AST ALT Alkaline Phosphatase Total Protein Albumin Globulin Albumin/Globulin Ratio Quality Measures Quality Measures VTE prophylaxis Advance care planning discussed with:: patient and other Assessment & Plan Assessment Current Active Medications: Generic Name Dose Route Start Last Admin Trade Name Freq PRN Reason Stop Dose Admin Acetaminophen 650 mg 12/23/24 05:49 Acetaminophen 325 Mg Tablet PO 01/22/25 05:48 Q6H PRN Fever >100.4 or pain 1-3 Hydrocodone Bitart/Acetaminophen 1 tab 12/30/24 02:25 01/02/25 04:01 Hydrocodone/Apap 5/325 Tablet PO 01/04/25 02:24 1 tab Q4HR PRN Administration Pain 7-10 Hydrocodone Bitart/Acetaminophen 1 tab 12/30/24 21:00 01/01/25 20:08 Hydrocodone/Apap 5/325 Tablet PO 01/04/25 20:59 1 tab HS CHAPARRO Administration Albuterol/Ipratropium 3 ml 12/23/24 07:00 01/02/25 07:53 Albuterol/Ipratropium (Duoneb) Rt Zo 3 Ml Nebu INH 01/22/25 06:59 3 ml Q6HRRT CHAPARRO Administration Albuterol/Ipratropium 3 ml 12/30/24 03:46 01/01/25 23:08 Albuterol/Ipratropium (Duoneb) Rt Zo 3 Ml Nebu INH 01/29/25 03:45 3 ml Q2HR PRN Administration SHORTNESS OF BREATH OR WHEEZE Benzonatate 100 mg 12/31/24 20:15 01/02/25 05:16 Benzonatate 100 Mg Capsule PO 01/30/25 20:14 100 mg Q6HR CHAPARRO Administration Protocol Docusate Sodium 100 mg 12/23/24 09:00 01/01/25 09:05 Docusate Sod 100 Mg Capsule PO 01/22/25 08:59 100 mg QDAY CHAPARRO Administration Protocol Guaifenesin 100 mg 12/27/24 22:20 12/29/24 05:40 Guaifenesin Syrup 200 Mg/10 Ml Udc PO 01/26/25 22:19 100 mg QID PRN Administration COUGH Protocol Heparin Sodium (Porcine) 5,000 unit 12/25/24 21:00 12/31/24 20:23 Heparin Sod Inj 5000 Unit/Ml Vial SC 01/08/25 20:59 5,000 unit On Hold: 12/31/24 23:55 Q12HR CHAPARRO Administration Levothyroxine Sodium 100 mcg 12/25/24 06:00 01/02/25 05:16 Levothyroxine Sodium 100 Mcg Tablet PO 01/24/25 05:59 100 mcg ACBR CHAPARRO Administration Ondansetron HCl 4 mg 12/25/24 21:56 12/29/24 20:16 Ondansetron Inj 2 Mg/Ml Inj 2 Ml IVP 01/24/25 21:55 4 mg Q6HR PRN Administration NAUSEA OR VOMITING Protocol Pantoprazole Sodium 40 mg 12/23/24 09:00 01/01/25 09:05 Pantoprazole Inj 40 Mg Vial IVP 01/22/25 08:59 40 mg QDAY CHAPARRO Administration Sertraline HCl 50 mg 12/23/24 09:00 01/01/25 09:04 Sertraline Hcl 25 Mg Tablet PO 01/22/25 08:59 50 mg QDAY CHAPARRO Administration Plan Mrs. Andrew is a 64-year-old female past medical significant of asthma, breast cancer s/p mastectomy 2017, thyroid cancer s/p thyroidectomy 2021 and radiation therapy, recently admitted for acute hypoxic respiratory failure secondary to right large pleural effusion discharged 11/20 presenting today 12/23 with similar complaint of SOB. #Acute hypoxic respiratory failure 03/25 #Left sided loculated pleural effusion / #Suspected malignant effusion, metastatic breast cancer #Hydropneumothorax right lung #Status post thoracentesis 11/07/24 and 11/08/24 #Asthma, by history #Stage IV breast cancer On initial presentation patient speaking in short sentences oxygen saturation 86% on 5L nasal cannula. Recent admission of similar presentation revealed exudative effusion from malignant metastases. Patient established with oncology outpatient, was transferred out for decortication however no intervention was done because of stage IV breast cancer. Case discussed with digital operations analyst, lung ultrasound performed at bedside patient has loculated pleural effusion not enough for thoracentesis, will reassess in a.m. possibly may need chest tube. -Blood Cx (12/23) has been negative for 5 days -Received Chest tube placement for pleural effusion in left lung (12/24/2024) -12/25: Patient drained a total of 3.7 L. Clear pleural followed, pleural WBC 663, pleural LDH 113, pleural total protein 4.0, pleural glucose 104. Considering, serum LDH 158, serum total protein 6.3, patient has exudative pleural effusion likely secondary to malignancy. -12/26: A total of 410ml has been drained from left percutaneous chest tube. 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 -IR deferred planned right upper lobe lung biopsy after identifying consolidation surrounding the lesion on imaging. Instead IR recommended proceeding with a CT guided biopsy of the left apical lung nodule. Oncology was informed and agreed with the revised plan. -Status post Left upper lobe lung mass pulmonary biopsy (12/27/2024). -Post biopsy CT (12/27) was performed which showed a small, less than 5% pneumothorax without evidence of interval progression. -CXR(12/27/2024) showed stable 5 mm left apical pneumothorax. -Repeat CXR (12/28/2024): showed presence of minimal left apical pneumothorax, appearing mildly improved. Also showed stable appearing subcutaneous emphysema of left lateral chest wall extending into the lower neck. Lastly, there were 2 points of kinking of left pleural catheter. -Discussed the case with Oncology, Dr. Flowers. Lung biopsy confirms malignancy consistent with breast primary. Prognostic markers including ER/[place] receptors and HER2/claudio results are still pending. -Sea Air Land Officer, Dr. Nino flushed the chest tube, which resulted 40 mL output with viscous and cellular debris's. Recommended patient to mobilize her body for better drainage and continuous flow. Repositioning of the chest tube was unnecessary. -Chest tube was removed on 01/01 because it was leaking. -The patient's family expressed concern regarding the episode of oxygen desaturation to 82% overnight, noting that the patient's coughing has worsened and is not adequately controlled with Tessalon or albutrol. The cough and O2 desaturation are most likely related to progression of metastatic lung cancer with extensive pulmonary involvement, and a PET scan is required to further evaluate disease extent and guide potential treatment options. -Ordered chest x-ray, coag panel and US pleural effsion of left lung. and if everything is optimal, IR will place PleurX catheter placement. Plan: -Continue DuoNebs q6h, DuoNebs every 2 hours as needed -Barco 5 every 4 hours as needed, Barco 5 at night @2100 -Supplemental O2, titrate as tolerated to maintain SpO2 >93% -Incentive spirometry -Pulmonology consulted, appreciate recommendations. -Oncology consulted, appreciate recommendations -Pending Pleural Fluid culture. -Patient's PET scan scheduled as outpatient next (01/03) at [facility] for staging purposes. -Will need to postpone PET scan schedule. #Esophageal Disphagia -Sensation of food/medicine not going down, with epigastric chest discomfort on eating. -Difficulty removing phlegm. -Ddx: GERD, stictures, Mets to esophagus. -Swallow eval (01/01/2025): Any large pills should be crushed. Pt is independent in eating/swallowing using compensatory techniques and specific diet selections. No further swallow treatment servives warranted at this time. Plan: -Based on swallow evaluation, outpatient management is recommended. #Hypothyroidism #Hx thyroid cancer s/p thyroidectomy 2021 No current active symptoms of hyperthyroid currently. TSH >100 free T4 0.86 Free T3 1.7 Plan: -Increased levothyroxine dosage from 75 mcg/day to 100mcg/day. -Outpatient titration of medication #Hx of pressure injury, coccyx, stage III Patient reports frequent back pain and it was noted that the patient had a possible pressure injury and her coccyx area. Per last admission, the wound staging is stage III without any drainage or order. Plan: -Referral to wound care -Continue to monitor #Depression - Continue home dose sertraline Health Maintenance: Code status: Full code DVT prophylaxis: Heparin every 12 hours (temporily stopped for potential PleurX catheter placement) GI prophylaxis: Protonix 40mg IVP QD Diet: NPO Mccallum: None Lines: PIV Supplemental O2: Nasal cannula Disposition: Tele Assessment and plan discussed with my attending physician Dr. Rosales and Dr. Ramirez (PGY-2) Dr. Henry (PGY-1) - Internal medicine resident Attending Provider Attestation/Addendum I have seen and examined the patient. I was physically present for the shannon portions of the services provided including history, physical exam, diagnosis, treatment plans and orders. I agree with assessment and plan of care as documented by residents. Even though this this note was carefully revised there may still be minor errors in instrument designer due to voice recognition software. Wiley Rosales MD
[2025-01-02] MEDS: SERTRALINE HCL 25 MG TABLET 50 MG PO (08:50)
[2025-01-02] MEDS: DOCUSATE SOD 100 MG CAPSULE PO (08:50)
--- NOTE | 2025-01-02 08:50 | PC.SS ---
Follow up note: Needs Pluerix drain placed. SS has spoken to Sneha from [facility] who is requesting to do an onsite evaluation.
--- NOTE | 2025-01-02 09:20 | XR_ITS ---
EXAMINATION: Ultrasound right hemithorax Ultrasound left hemithorax Date and time: January 02, 2025, 1245 hours INDICATIONS: History shortness of breath pleural effusions TECHNIQUE AND FINDINGS: Grayscale sonographic images right and left hemithoraces Mild to moderate right pleural effusion Mild left pleural effusion IMPRESSION: Pleural effusions as above
--- NOTE | 2025-01-02 09:32 | ESPR_ITS ---
Documentation for date of: 01/02/25 Subjective Subjective Interval history: Patient with stage IV breast CA with lung mets, had episodes of shortness of breath with low O2 sats and was put back on oxy mask. Exam Vital Signs Temp Pulse Resp BP Pulse Ox O2 Del Method O2 Flow Rate 98.1 F 91 15 115/83 96 Nasal Cannula 5 01/02/25 08:00 01/02/25 08:00 01/02/25 08:00 01/02/25 08:00 01/02/25 08:00 01/02/25 08:00 01/02/25 08:00 Narrative Exam Appears more comfortable this a.m. with flow rate of 8 to 10 L via facemask. Objective Labs 01/02/25 05:49 01/02/25 04:52 Labs: Laboratory Results - last 24 hr 01/01/25 01/01/25 01/02/25 18:44 22:20 04:52 WBC 20.3 H RBC 5.13 Hgb 15.2 Hct 45.2 MCV 88 MCH 29.6 MCHC 33.6 RDW Std Deviation 46.1 Plt Count 388 Neut % (Auto) 70 Lymph % (Auto) 6 L [place] % (Auto) 8 Eos % (Auto) 15 H Baso % (Auto) 1 Neut # (Auto) 14.2 H Lymph # (Auto) 1.1 [place] # (Auto) 1.5 H Eos # (Auto) 3.0 H Baso # (Auto) 0.1 Immature Gran # (Auto) 0.23 H Absolute Nucleated RBC 0.00 Immature Gran % 1 H Nucleated RBC % 0 Sodium 135 L 138 Potassium 4.3 4.5 Chloride 100 101 Carbon Dioxide 20.8 25.6 Anion Gap 14 11 BUN 6 L 6 L Creatinine 0.6 0.6 Estim Creat Clear Calc 103.1 103.1 eGFR > 60 > 60 BUN/Creatinine Ratio 10 L 10 L Glucose 110 H 83 Calculated Osmolality 268 L 272 L Lactic Acid 2.3 H 1.6 Calcium 9.1 8.3 Corrected Calcium 9.2 8.6 Phosphorus 3.6 Magnesium 1.8 Total Bilirubin 0.3 0.3 AST 18 16 ALT 8 L 8 L Alkaline Phosphatase 79 72 Total Protein 6.4 5.4 L Albumin 3.9 3.6 Globulin 2.5 1.8 L Albumin/Globulin Ratio 1.6 2.0 01/02/25 05:49 WBC 18.9 H RBC 5.23 H Hgb 15.0 Hct 46.1 H MCV 88 MCH 28.7 MCHC 32.5 RDW Std Deviation 46.1 Plt Count 405 Neut % (Auto) 68 Lymph % (Auto) 6 L [place] % (Auto) 7 Eos % (Auto) 16 H Baso % (Auto) 1 Neut # (Auto) 12.9 H Lymph # (Auto) 1.2 [place] # (Auto) 1.4 H Eos # (Auto) 3.1 H Baso # (Auto) 0.1 Immature Gran # (Auto) 0.21 H Absolute Nucleated RBC 0.00 Immature Gran % 1 H Nucleated RBC % 0 Sodium Potassium Chloride Carbon Dioxide Anion Gap BUN Creatinine Estim Creat Clear Calc eGFR BUN/Creatinine Ratio Glucose Calculated Osmolality Lactic Acid Calcium Corrected Calcium Phosphorus Magnesium Total Bilirubin AST ALT Alkaline Phosphatase Total Protein Albumin Globulin Albumin/Globulin Ratio Assessment & Plan A&P Narrative 1. History of early-stage right breast CA treated with bilateral mastectomy taking letrozole for receptor positive cancer since. 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 2. Lung biopsy performed 12/23/24 confirms malignancy consistent with breast primary. ER/[place] receptor and HER2/claudio pending 3. Being considered for PleurX catheter due to the recurrence of the pleural effusion problem/ respiratory symptoms. 4. Patient has PET scan scheduled as outpatient tomorrow at [facility] for staging purposes. 5. This will be rescheduled if patient not discharged today. Time Spent With Patient Time: Total time spent is greater than 50% in coordination of care (as documented) at patient's floor/unit and/or counseling patient:
[2025-01-02 09:39] LABS: INR 1.0 (0.9-1.3); Partial Thromboplastin Time 25.6 Seconds (22.0-36.0); Prothrombin Time 10.9 Seconds (9.0-12.2)
[2025-01-02] MEDS: guaiFENesin/COD SYRUP 5 ML UDC 10 ML PO (20:17)
[2025-01-02] MEDS: ONDANSETRON INJ 2 MG/ML INJ 2 ML 4 MG IVP (20:25)
[2025-01-03] VITALS (12 sets, daily range): BP systolic 101–124; BP diastolic 59–76; PULSE 68–130; RESP 18–33; TEMP 35.8–36.1; O2SAT 90–99
[2025-01-03] MEDS: HYDROcodone/APAP 5/325 TABLET 1 TAB PO ×6 (00:20→21:13)
[2025-01-03] MEDS: guaiFENesin/COD SYRUP 5 ML UDC 10 ML PO ×6 (00:21→21:46)
[2025-01-03] MEDS: ALBUTEROL/IPRATROPIUM (Duoneb) RT SOL 3 ML NEBU INH ×4 (00:54→18:12)
[2025-01-03] MEDS: LEVOTHYROXINE SODIUM 100 MCG TABLET PO (05:09)
[2025-01-03 06:07] LABS: Basophils # (Auto) 0.1 Thou/mm3 (0.0-0.2); Basophils % (Auto) 1 % (0-2.5); Eosinophils # (Auto) 3.0 Thou/mm3 (0.0-0.5); Eosinophils % (Auto) 17 % (0-10); Hematocrit 45.1 % (36.0-46.0); Hemoglobin 14.3 g/dL (12.0-16.0); Immature Granulocytes Auto 0.15 Thou/mm3 (0.00-0.00); Lymphocytes # (Auto) 1.1 Thou/mm3 (1.0-4.8); Lymphocytes % (Auto) 6 % (10-50); Mean Corpuscular HGB Conc 31.7 g/dl (31.0-37.0); Mean Corpuscular Hemoglobin 28.1 pg (25.0-35.0); Mean Corpuscular Volume 89 fL (80-100); Monocytes # (Auto) 1.2 Thou/mm3 (0.0-0.8); Monocytes % (Auto) 7 % (0-12); Neutrophils # (Auto) 12.2 Thou/mm3 (1.8-7.7); Neutrophils % (Auto) 69 % (37-80); Nucleated Red Blood Cell # 0.00 Thou/mm3 (0.00-0.00); Nucleated Red Blood Cell % 0 /100 WBC (0); Platelet Count 382 Thou/mm3 (140-440); RDW Standard Deviation 45.9 fL (36.4-46.3); Red Blood Count 5.08 Miln/mm3 (4.00-5.20); White Blood Count 17.7 Thou/mm3 (3.6-11.0)
[2025-01-03 06:51] LABS: Alanine Aminotransferase < 7 U/L (10-49); Albumin, Serum 3.8 gm/dL (3.4-4.8); Albumin/Globulin Ratio 1.9 (1.2-2.2); Alkaline Phosphatase 77 U/L (46-116); Anion Gap 11 (7-16); Aspartate Amino Transferase 14 U/L (0-34); BUN/Creatinine Ratio 12 Ratio (12-20); Bilirubin,Total 0.3 mg/dL (0.3-1.2); Blood Urea Nitrogen 7 mg/dL (9-23); Calcium 8.7 mg/dL (8.3-10.6); Calcium (Corrected) 8.9 mg/dL (8.5-10.1); Carbon Dioxide 27.5 mMol/L (20.0-31.0); Chloride 99 mMol/L (98-107); Creatinine (Component) 0.6 mg/dL (0.6-1.3); Estimated Creatinine Clearance 103.1 mL/min (>60); Globulin 2.0 gm/dL (2.3-3.5); Glucose 93 mg/dL (74-106); Magnesium 1.9 mg/dL (1.6-2.6); Osmolality,Calculated 271 (275-295); Phosphorous 3.4 mg/dL (2.4-5.1); Potassium 4.1 mMol/L (3.4-5.1); Sodium 137 mMol/L (136-145); Total Protein 5.8 gm/dL (5.7-8.2); eGFR > 60 See Note
--- NOTE | 2025-01-03 08:12 | PC.SS ---
Addendum entered by Nicolasa Cadet 01/03/25 12:21: SS spoke to Yamile from [facility] and they are starting insurance authorization. Original Note: Late note 01-02-25: SS met with pt and family at bedside to discuss d/c plan. SS also spoke to dtr in [facility], Johana Ching, phone# [phone]. Pt and family were provided with verbal options for d/c to home or SNF with or without Hospice Services. Pt and family are aware pt does not have Medical Health Insurance to cover hospice at a SNF. SS spoke to Peace from [facility] who ran patient's private health insurance and at this time pt has 100% cover age for SNF which included PT/OT, speech, and respiratory services. Pt and family are aware if the want Hospice Services at SNF they will have to pay privately. Pt and family are aware SNFs are able to assist pt with applying for Medical. SS has sent inquiry to the local SNF using [facility]. SS provided pt and family with [employer].
--- NOTE | 2025-01-03 09:35 | XR_ITS ---
EXAMINATION: AP chest single view TECHNIQUE: AP portable upright chest single view Date and time: January 03, 2025, 0948 hours, comparison January 02, 2025 INDICATIONS: Difficulty breathing this week. FINDINGS: Stable mild to moderate left pleural fluid Suspicious for pneumothorax inferior to the right lung, less than 15% Enlarged cardiac contour with vascular congestion Severe osteopenia Axillary surgical clips IMPRESSION: Stable pleural effusions Suspicious for small pneumothorax inferior to the right lung
[2025-01-03] MEDS: DOCUSATE SOD 100 MG CAPSULE PO (09:52)
[2025-01-03] MEDS: SERTRALINE HCL 25 MG TABLET 50 MG PO (09:53)
[2025-01-03] MEDS: PANTOPRAZOLE 40 MG TABLET PO (09:53)
--- NOTE | 2025-01-03 10:35 | ESPR_ITS ---
<Statement entered by Wolf Prather MD - 01/04/25 15:15> Patient seen and examined at bedside. I discussed and supervised with the public relations intern physician who took care of this patient. I personally saw and examined the patient. I agree with most of the assessment and plan. Plan of care discussed with attending Dr. Bobby Prather MD PGY-2 Documentation for date of: 01/03/25 Subjective Subjective Interval history: Patient was unable to get PleurX catheter today. Will trend the pleural fluid level tomorrow. Patient's TSH level has been increasing. On admission, TSH 101.7 with free T4: 0.86. On 01/03, TSH>150 with free T4: 0.78. Patient's p.o. levothyroxine 125 mcg has been stopped. IV levothyroxine 125 mcg x 1 has been ordered tomorrow 01/04 at 6 AM. Will continue to monitor her TSH level. It was noted that SNF would be able to manage her PleurX catheter. Patient and the patient's family all agreed on discharging the patient to SNF. Patient's PET scan has been delayed to January 21, 2025 at 1:45 PM Exam Vital Signs Temp Pulse Resp BP Pulse Ox O2 Del Method O2 Flow Rate 96.6 F L 78 19 101/59 L 96 Nasal Cannula 4 01/03/25 08:00 01/03/25 08:00 01/03/25 08:00 01/03/25 08:00 01/03/25 08:00 01/03/25 08:00 01/03/25 08:00 Narrative Exam General: No acute distress, well nourished, AAO x3 Eye: Normal conjunctiva, no scleral icterus HENT: Normocephalic, atraumatic, hearing intact to conversation at normal volume, moist oral mucosa Neck: Supple, non-tender, no JVD, no lymphadenopathy Lungs: Symmetric chest rise, No wheezing, rhonchi, crackles, Decreased breathe sounds in bilateral lung bases. Heart: Peripheral pulses intact bilaterally, Regular Rate and Rhythm. Abdomen: Soft, non-tender, non-distended, no palpable masses Musculoskeletal: Normal range of motion and strength, No cyanosis or edema, No visible joint swelling Skin: Skin is warm, dry, no rashes or lesions. Psychiatric: Cooperative, appropriate mood and affect, Awake and alert, not agitated Neuro: Cranial nerves II-XII grossly intact. Strength 5/5 throughout. Sensations intact to light touch. Objective Labs 01/07/25 06:37 01/06/25 04:35 Labs: Laboratory Results - last 24 hr 01/03/25 05:40 WBC 17.7 H RBC 5.08 Hgb 14.3 Hct 45.1 MCV 89 MCH 28.1 MCHC 31.7 RDW Std Deviation 45.9 Plt Count 382 Neut % (Auto) 69 Lymph % (Auto) 6 L [place] % (Auto) 7 Eos % (Auto) 17 H Baso % (Auto) 1 Neut # (Auto) 12.2 H Lymph # (Auto) 1.1 [place] # (Auto) 1.2 H Eos # (Auto) 3.0 H Baso # (Auto) 0.1 Immature Gran # (Auto) 0.15 H Absolute Nucleated RBC 0.00 Immature Gran % 1 H Nucleated RBC % 0 Sodium 137 Potassium 4.1 Chloride 99 Carbon Dioxide 27.5 Anion Gap 11 BUN 7 L Creatinine 0.6 Estim Creat Clear Calc 103.1 eGFR > 60 BUN/Creatinine Ratio 12 Glucose 93 Calculated Osmolality 271 L Calcium 8.7 Corrected Calcium 8.9 Phosphorus 3.4 Magnesium 1.9 Total Bilirubin 0.3 AST 14 ALT < 7 L Alkaline Phosphatase 77 Total Protein 5.8 Albumin 3.8 Globulin 2.0 L Albumin/Globulin Ratio 1.9 Quality Measures Quality Measures VTE prophylaxis Advance care planning discussed with:: patient, child and other Assessment & Plan Assessment Current Active Medications: Generic Name Dose Route Start Last Admin Trade Name Freq PRN Reason Stop Dose Admin Acetaminophen 650 mg 12/23/24 05:49 Acetaminophen 325 Mg Tablet PO 01/22/25 05:48 Q6H PRN Fever >100.4 or pain 1-3 Hydrocodone Bitart/Acetaminophen 1 tab 12/30/24 02:25 01/03/25 09:53 Hydrocodone/Apap 5/325 Tablet PO 01/04/25 02:24 1 tab Q4HR PRN Administration Pain 7-10 Hydrocodone Bitart/Acetaminophen 1 tab 12/30/24 21:00 01/02/25 20:18 Hydrocodone/Apap 5/325 Tablet PO 01/04/25 20:59 1 tab HS CHAPARRO Administration Albuterol/Ipratropium 3 ml 12/23/24 07:00 01/03/25 06:38 Albuterol/Ipratropium (Duoneb) Rt Zo 3 Ml Nebu INH 01/22/25 06:59 3 ml Q6HRRT CHAPARRO Administration Albuterol/Ipratropium 3 ml 12/30/24 03:46 01/02/25 15:34 Albuterol/Ipratropium (Duoneb) Rt Zo 3 Ml Nebu INH 01/29/25 03:45 3 ml Q2HR PRN Administration SHORTNESS OF BREATH OR WHEEZE Docusate Sodium 100 mg 12/23/24 09:00 01/03/25 09:52 Docusate Sod 100 Mg Capsule PO 01/22/25 08:59 100 mg QDAY CHAPARRO Administration Protocol Guaifenesin/Codeine Phosphate 10 ml 01/02/25 16:22 01/03/25 09:52 Guaifenesin/Cod Syrup 5 Ml Udc PO 02/01/25 16:21 10 ml Q4HR PRN Administration COUGH Protocol Heparin Sodium (Porcine) 5,000 unit 12/25/24 21:00 12/31/24 20:23 Heparin Sod Inj 5000 Unit/Ml Vial SC 01/08/25 20:59 5,000 unit On Hold: 12/31/24 23:55 Q12HR CHAPARRO Administration Levothyroxine Sodium 100 mcg 12/25/24 06:00 01/03/25 05:09 Levothyroxine Sodium 100 Mcg Tablet PO 01/24/25 05:59 100 mcg ACBR CHAPARRO Administration Ondansetron HCl 4 mg 12/25/24 21:56 01/02/25 20:25 Ondansetron Inj 2 Mg/Ml Inj 2 Ml IVP 01/24/25 21:55 4 mg Q6HR PRN Administration NAUSEA OR VOMITING Protocol Pantoprazole Sodium 40 mg 01/03/25 09:00 01/03/25 09:53 Pantoprazole 40 Mg Tablet PO 02/02/25 08:59 40 mg QDAY CHAPARRO Administration Protocol Sertraline HCl 50 mg 12/23/24 09:00 01/03/25 09:53 Sertraline Hcl 25 Mg Tablet PO 01/22/25 08:59 50 mg QDAY CHAPARRO Administration Plan Mrs. Andrew is a 64-year-old female past medical significant of asthma, breast cancer s/p mastectomy 2017, thyroid cancer s/p thyroidectomy 2021 and radiation therapy, recently admitted for acute hypoxic respiratory failure secondary to right large pleural effusion discharged 11/20 presenting today 12/23 with similar complaint of SOB. #Acute hypoxic respiratory failure / #Left sided loculated pleural effusion 2/ #Suspected malignant effusion, metastatic breast cancer #Hydropneumothorax right lung #Status post thoracentesis 11/07/24 and 11/08/24 #Asthma, by history #Stage IV breast cancer On initial presentation patient speaking in short sentences oxygen saturation 86% on 5L nasal cannula. Recent admission of similar presentation revealed exudative effusion from malignant metastases. Patient established with oncology outpatient, was transferred out for decortication however no intervention was done because of stage IV breast cancer. Case discussed with buyer tobacco head, lung ultrasound performed at bedside patient has loculated pleural effusion not enough for thoracentesis, will reassess in a.m. possibly may need chest tube. -Blood Cx (12/23) has been negative for 5 days -Received Chest tube placement for pleural effusion in left lung (12/24/2024) -12/25: Patient drained a total of 3.7 L. Clear pleural followed, pleural WBC 663, pleural LDH 113, pleural total protein 4.0, pleural glucose 104. Considering, serum LDH 158, serum total protein 6.3, patient has exudative pleural effusion likely secondary to malignancy. -12/26: A total of 410ml has been drained from left percutaneous chest tube. 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 -IR deferred planned right upper lobe lung biopsy after identifying consolidation surrounding the lesion on imaging. Instead IR recommended proceeding with a CT guided biopsy of the left apical lung nodule. Oncology was informed and agreed with the revised plan. -Status post Left upper lobe lung mass pulmonary biopsy (12/27/2024). -Post biopsy CT (12/27) was performed which showed a small, less than 5% pneumothorax without evidence of interval progression. -CXR(12/27/2024) showed stable 5 mm left apical pneumothorax. -Repeat CXR (12/28/2024): showed presence of minimal left apical pneumothorax, appearing mildly improved. Also showed stable appearing subcutaneous emphysema of left lateral chest wall extending into the lower neck. Lastly, there were 2 points of kinking of left pleural catheter. -Discussed the case with Oncology, Dr. Flowers. Lung biopsy confirms malignancy consistent with breast primary. Prognostic markers including ER/CO receptors and HER2/claudio results are still pending. -Yoga Instructor, Dr. Nino flushed the chest tube, which resulted 40 mL output with viscous and cellular debris's. Recommended patient to mobilize her body for better drainage and continuous flow. Repositioning of the chest tube was unnecessary. -Chest tube was removed on 01/01 because it was leaking. -The patient's family expressed concern regarding the episode of oxygen desaturation to 82% overnight, noting that the patient's coughing has worsened and is not adequately controlled with Tessalon or albutrol. The cough and O2 desaturation are most likely related to progression of metastatic lung cancer with extensive pulmonary involvement, and a PET scan is required to further evaluate disease extent and guide potential treatment options. -Ordered chest x-ray, coag panel and US pleural effsion of left lung. and if everything is optimal, IR will place PleurX catheter placement. -Patient's PET scan has been delayed to January 21, 2025 at 1:45 PM -Patient was unable to get PleurX catheter today. Will trend the pleural fluid level tomorrow. Patient's TSH level has been increasing. On admission, TSH 101.7 with free T4: 0.86. On 01/03, TSH>150 with free T4: 0.78. Patient's p.o. levothyroxine 125 mcg has been stopped. IV levothyroxine 125 mcg x 1 has been ordered tomorrow 01/04 at 6 AM. Will continue to monitor her TSH level. Plan: - IV levothyroxine 125 mcg x 1 has been ordered tomorrow 01/04 at 6 AM. Will continue to monitor her TSH level. -Continue DuoNebs q6h, DuoNebs every 2 hours as needed -Stewart 5 every 4 hours as needed, Stewart 5 at night @2100 -Supplemental O2, titrate as tolerated to maintain SpO2 >93% -Incentive spirometry -Pulmonology consulted, appreciate recommendations. -Oncology consulted, appreciate recommendations -Pending Pleural Fluid culture. #Esophageal Disphagia -Sensation of food/medicine not going down, with epigastric chest discomfort on eating. -Difficulty removing phlegm. -Ddx: GERD, stictures, Mets to esophagus. -Swallow eval (01/01/2025): Any large pills should be crushed. Pt is independent in eating/swallowing using compensatory techniques and specific diet selections. No further swallow treatment servives warranted at this time. Plan: -Based on swallow evaluation, outpatient management is recommended. #Hypothyroidism #Hx thyroid cancer s/p thyroidectomy 2021 No current active symptoms of hyperthyroid currently. TSH >100 free T4 0.86 Free T3 1.7 Plan: -Increased levothyroxine dosage from 75 mcg/day to 100mcg/day. -Outpatient titration of medication #Hx of pressure injury, coccyx, stage III Patient reports frequent back pain and it was noted that the patient had a possible pressure injury and her coccyx area. Per last admission, the wound staging is stage III without any drainage or order. Plan: -Referral to wound care -Continue to monitor #Depression - Continue home dose sertraline Health Maintenance: Code status: Full code DVT prophylaxis: Heparin every 12 hours (temporily stopped for potential PleurX catheter placement) GI prophylaxis: Protonix 40mg IVP QD Diet: NPO Mccallum: None Lines: PIV Supplemental O2: Nasal cannula Disposition: Tele Assessment and plan discussed with my attending physician Dr. Rosales and Dr. Prather (PGY-2) Dr. Henry (PGY-1) - Internal medicine resident Attending Provider Attestation/Addendum I have seen and examined the patient. I was physically present for the shannon portions of the services provided including history, physical exam, diagnosis, treatment plans and orders. I agree with assessment and plan of care as documented by residents. Even though this this note was carefully revised there may still be minor errors in javascript developer due to voice recognition software. Wiley Rosales MD
--- NOTE | 2025-01-03 12:15 | PC.SS ---
Addendum entered by Nicolasa Cadet 01/03/25 14:56: This morning SS spoke to Demetra, financial services director and provided her with dtr in law's phone number to help initiate the Medical process. Original Note: SS met with pt, son, and dtr in law by phone to provide choices for SNF to [facility] or [facility]. SS was informed by Joya from [facility] they are not contracted with patient's health insurance. Melissa from [facility] did onsite evaluation and is aware pt will be getting a PleurX drain and they are able to accept. Dtr in law, Johana and son are requesting [facility].
--- NOTE | 2025-01-03 13:09 | PC.CC ---
PASRR Level 1 complete and downloaded; pending Level 2.
[2025-01-03 13:35] LABS: Free T4 (Free Thyroxine) 0.78 ng/dL (0.89-1.76); Thyroid Stimulating Hormone > 150.00 uIU/mL (0.55-4.78)
[2025-01-03] MEDS: LEVOTHYROXINE SODIUM 25 MCG TABLET 50 MCG PO (15:59)
--- NOTE | 2025-01-03 16:45 | PD.ONCPROG ---
Documentation for date of: 01/03/25 Subjective Subjective Interval history: The biopsy result revealed surprising dual mets of breast primary as well as papillary thyroid carcinoma. Receptors negative HER2/claudio negative Ki-67 15 to 20% positive. Second focus consistent with metastatic thyroid carcinoma IHC is pending for confirmation. Exam Vital Signs Temp Pulse Resp BP Pulse Ox O2 Del Method O2 Flow Rate 96.5 F L 77 23 H 109/73 99 Nasal Cannula 2 01/03/25 12:00 01/03/25 13:45 01/03/25 13:45 01/03/25 12:00 01/03/25 13:45 01/03/25 12:00 01/03/25 13:45 Narrative Exam Appearing comfortable although having some cough symptoms. Objective Labs 01/03/25 05:40 01/03/25 05:40 Labs: Laboratory Results - last 24 hr 01/03/25 05:40 WBC 17.7 H RBC 5.08 Hgb 14.3 Hct 45.1 MCV 89 MCH 28.1 MCHC 31.7 RDW Std Deviation 45.9 Plt Count 382 Neut % (Auto) 69 Lymph % (Auto) 6 L [place] % (Auto) 7 Eos % (Auto) 17 H Baso % (Auto) 1 Neut # (Auto) 12.2 H Lymph # (Auto) 1.1 [place] # (Auto) 1.2 H Eos # (Auto) 3.0 H Baso # (Auto) 0.1 Immature Gran # (Auto) 0.15 H Absolute Nucleated RBC 0.00 Immature Gran % 1 H Nucleated RBC % 0 Sodium 137 Potassium 4.1 Chloride 99 Carbon Dioxide 27.5 Anion Gap 11 BUN 7 L Creatinine 0.6 Estim Creat Clear Calc 103.1 eGFR > 60 BUN/Creatinine Ratio 12 Glucose 93 Calculated Osmolality 271 L Calcium 8.7 Corrected Calcium 8.9 Phosphorus 3.4 Magnesium 1.9 Total Bilirubin 0.3 AST 14 ALT < 7 L Alkaline Phosphatase 77 Total Protein 5.8 Albumin 3.8 Globulin 2.0 L Albumin/Globulin Ratio 1.9 TSH > 150.00 H* D Free T4 0.78 L Assessment & Plan A&P Narrative 1. History of early-stage right breast CA treated with bilateral mastectomy taking letrozole for receptor positive cancer since. 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 2. Lung biopsy performed 12/23/24 confirms malignancy consistent with breast primary. Triple negative for ER/CO and HER2/claudio. PD-L1 was requested for possible benefit of immunotherapy. 3. Second. focus consistent with metastatic papillary thyroid carcinoma IHC pending for confirmation. 4. Patient who was kept euthyroid on 75 to 100 mcg of Synthroid since her surgery. 3 years ago has considerably elevated TSH, and correspondingly low thyroid level. Could be related to her metastatic cancer problem. Will adjust thyroid meds accordingly. 5. I have been in contact with her prior medical oncologist at [facility]. Will follow. Time Spent With Patient Time: Total time spent is greater than 50% in coordination of care (as documented) at patient's floor/unit and/or counseling patient:
[2025-01-04] VITALS (12 sets, daily range): BP systolic 110–132; BP diastolic 55–90; PULSE 79–98; RESP 12–24; TEMP 36–36.8; O2SAT 91–98; BMI 25.4
[2025-01-04] MEDS: ALBUTEROL/IPRATROPIUM (Duoneb) RT SOL 3 ML NEBU INH ×4 (00:30→19:13)
[2025-01-04] MEDS: HYDROcodone/APAP 5/325 TABLET 1 TAB PO ×4 (01:27→20:53)
[2025-01-04] MEDS: guaiFENesin/COD SYRUP 5 ML UDC 10 ML PO ×4 (01:27→20:53)
[2025-01-04] MEDS: ONDANSETRON INJ 2 MG/ML INJ 2 ML 4 MG IVP (05:57)
[2025-01-04 06:29] LABS: Basophils # (Auto) 0.1 Thou/mm3 (0.0-0.2); Basophils % (Auto) 1 % (0-2.5); Eosinophils # (Auto) 3.3 Thou/mm3 (0.0-0.5); Eosinophils % (Auto) 18 % (0-10); Hematocrit 44.8 % (36.0-46.0); Hemoglobin 14.7 g/dL (12.0-16.0); Immature Granulocytes Auto 0.15 Thou/mm3 (0.00-0.00); Lymphocytes # (Auto) 1.0 Thou/mm3 (1.0-4.8); Lymphocytes % (Auto) 6 % (10-50); Mean Corpuscular HGB Conc 32.8 g/dl (31.0-37.0); Mean Corpuscular Hemoglobin 29.4 pg (25.0-35.0); Mean Corpuscular Volume 90 fL (80-100); Monocytes # (Auto) 1.1 Thou/mm3 (0.0-0.8); Monocytes % (Auto) 6 % (0-12); Neutrophils # (Auto) 12.4 Thou/mm3 (1.8-7.7); Neutrophils % (Auto) 69 % (37-80); Nucleated Red Blood Cell # 0.00 Thou/mm3 (0.00-0.00); Nucleated Red Blood Cell % 0 /100 WBC (0); Platelet Count 424 Thou/mm3 (140-440); RDW Standard Deviation 47.1 fL (36.4-46.3); Red Blood Count 5.00 Miln/mm3 (4.00-5.20); White Blood Count 18.0 Thou/mm3 (3.6-11.0)
[2025-01-04 06:46] LABS: Alanine Aminotransferase 8 U/L (10-49); Albumin, Serum 3.8 gm/dL (3.4-4.8); Alkaline Phosphatase 79 U/L (46-116); Anion Gap 9 (7-16); Aspartate Amino Transferase 14 U/L (0-34); BUN/Creatinine Ratio 10 Ratio (12-20); Blood Urea Nitrogen 6 mg/dL (9-23); Calcium 9.0 mg/dL (8.3-10.6); Calcium (Corrected) 9.2 mg/dL (8.5-10.1); Carbon Dioxide 26.2 mMol/L (20.0-31.0); Chloride 100 mMol/L (98-107); Creatinine (Component) 0.6 mg/dL (0.6-1.3); Estimated Creatinine Clearance 103.1 mL/min (>60); Glucose 86 mg/dL (74-106); Magnesium 1.9 mg/dL (1.6-2.6); Osmolality,Calculated 266 (275-295); Potassium 4.2 mMol/L (3.4-5.1); Sodium 135 mMol/L (136-145); eGFR > 60 See Note
[2025-01-04 06:47] LABS: Albumin/Globulin Ratio 1.7 (1.2-2.2); Bilirubin,Total 0.3 mg/dL (0.3-1.2); Globulin 2.3 gm/dL (2.3-3.5); Phosphorous 4.1 mg/dL (2.4-5.1); Total Protein 6.1 gm/dL (5.7-8.2)
--- NOTE | 2025-01-04 08:08 | XR_ITS ---
EXAMINATION: Ultrasound right hemithorax Ultrasound left hemithorax Date and time: January 04, 2025, 1133 hours INDICATIONS: History of pleural effusions this week. TECHNIQUE AND FINDINGS: Grayscale sonographic images hemithoraces Mild right pleural effusion Mild to moderate left pleural effusion IMPRESSION: Mild right mild to moderate left pleural fluid
[2025-01-04] MEDS: DOCUSATE SOD 100 MG CAPSULE PO (08:28)
[2025-01-04] MEDS: PANTOPRAZOLE 40 MG TABLET PO (08:29)
[2025-01-04] MEDS: SERTRALINE HCL 25 MG TABLET 50 MG PO (08:29)
--- NOTE | 2025-01-04 08:50 | PC.SS ---
Follow up note: On IV meds. Possible PleurX drain placed. Felipe Johansen is working on obtaining insurance authorization.
[2025-01-04 08:53] LABS: INR 1.1 (0.9-1.3); Partial Thromboplastin Time 27.3 Seconds (22.0-36.0); Prothrombin Time 11.2 Seconds (9.0-12.2)
--- NOTE | 2025-01-04 09:19 | ESPR_ITS ---
<Statement entered by Nasreen Ramirez MD - 01/05/25 05:29> Patient was seen and examined at bedside. I agree on the assessment and plan on this note as documented by resident Noé Henry DO PGY1. 64-year-old female with past medical history as below admitted for acute hypoxic respiratory failure secondary to bilateral pleural effusions, biopsy results from lung nodes shows dual metastasis of breast primary and papillary thyroid cancer, results were reported to oncologist Dr. Flowers. Patient does have elevated TSH of greater than 150, was given IV levothyroxine 125 mcg today after discussion with bag builder yesterday. Case was discussed with interventional radiologist, for possible PleurX catheter, there is mild to moderate fluid in the left lung per ultrasound, not enough for catheter placement. Patient plan [facility] to [facility] facility, will discuss with patient in a.m. regarding discharge and outpatient IR follow-up in 1 week for PleurX placement. Otherwise patient continues to be hypoxic requiring supplemental oxygen. Case discussed with attending Dr. Lindsay Noriega MD PGY-2 Documentation for date of: 01/04/25 Subjective Subjective Interval history: Pending PleurX catheter placement. Will follow-up with IR. Patient has received IV levothyroxine 125 mcg today for elevated TSH of >150. On discharge, planning to discharge patient with PO levothyroxine 150mcg. Per oncology, the biopsy results of the lung showed dual metastasis of breast primary and papillary thyroid carcinoma. Receptors were negative ER/ME, negative HER2/Stevie and negative KI?67 15 to 20% positive. Second focus consistent with metastatic thyroid carcinoma IHC is pending for confirmation. PD-L1 was requested for possible immunotherapy. Her elevated TSH could be related to the metastic cancer problem. Again PET scan scheduled for January 21. Exam Vital Signs Temp Pulse Resp BP Pulse Ox O2 Del Method O2 Flow Rate 97.0 F 83 21 H 125/90 H 91 L Nasal Cannula 5 01/04/25 08:00 01/04/25 08:00 01/04/25 08:00 01/04/25 08:00 01/04/25 08:00 01/04/25 08:00 01/04/25 05:57 Narrative Exam General: No acute distress, well nourished, AAO x3 Eye: Normal conjunctiva, no scleral icterus HENT: Normocephalic, atraumatic, hearing intact to conversation at normal volume, moist oral mucosa Neck: Supple, non-tender, no JVD, no lymphadenopathy Lungs: Symmetric chest rise, No wheezing, rhonchi, crackles, Decreased breathe sounds in bilateral lung bases. Heart: Peripheral pulses intact bilaterally, Regular Rate and Rhythm. Abdomen: Soft, non-tender, non-distended, no palpable masses Musculoskeletal: Normal range of motion and strength, No cyanosis or edema, No visible joint swelling Skin: Skin is warm, dry, no rashes or lesions. Psychiatric: Cooperative, appropriate mood and affect, Awake and alert, not agitated Neuro: Cranial nerves II-XII grossly intact. Strength 5/5 throughout. Sensations intact to light touch. Objective Labs 01/04/25 05:55 01/04/25 05:55 Labs: Laboratory Results - last 24 hr 01/03/25 01/04/25 05:40 05:55 WBC 18.0 H RBC 5.00 Hgb 14.7 Hct 44.8 MCV 90 MCH 29.4 MCHC 32.8 RDW Std Deviation 47.1 H Plt Count 424 D Neut % (Auto) 69 Lymph % (Auto) 6 L Sargent % (Auto) 6 Eos % (Auto) 18 H Baso % (Auto) 1 Neut # (Auto) 12.4 H Lymph # (Auto) 1.0 Sargent # (Auto) 1.1 H Eos # (Auto) 3.3 H Baso # (Auto) 0.1 Immature Gran # (Auto) 0.15 H Absolute Nucleated RBC 0.00 Immature Gran % 1 H Nucleated RBC % 0 PT 11.2 INR 1.1 APTT 27.3 Sodium 135 L Potassium 4.2 Chloride 100 Carbon Dioxide 26.2 Anion Gap 9 BUN 6 L Creatinine 0.6 Estim Creat Clear Calc 103.1 eGFR > 60 BUN/Creatinine Ratio 10 L Glucose 86 Calculated Osmolality 266 L Calcium 9.0 Corrected Calcium 9.2 Phosphorus 4.1 Magnesium 1.9 Total Bilirubin 0.3 AST 14 ALT 8 L Alkaline Phosphatase 79 Total Protein 6.1 Albumin 3.8 Globulin 2.3 Albumin/Globulin Ratio 1.7 TSH > 150.00 H* D Free T4 0.78 L Quality Measures Quality Measures VTE prophylaxis Advance care planning discussed with:: patient and other Assessment & Plan Assessment Current Active Medications: Generic Name Dose Route Start Last Admin Trade Name Freq PRN Reason Stop Dose Admin Acetaminophen 650 mg 12/23/24 05:49 Acetaminophen 325 Mg Tablet PO 01/22/25 05:48 Q6H PRN Fever >100.4 or pain 1-3 Hydrocodone Bitart/Acetaminophen 1 tab 12/30/24 02:25 01/04/25 05:34 Hydrocodone/Apap 5/325 Tablet PO 01/08/25 02:24 1 tab Q4HR PRN Administration Pain 7-10 Hydrocodone Bitart/Acetaminophen 1 tab 12/30/24 21:00 01/03/25 21:13 Hydrocodone/Apap 5/325 Tablet PO 01/08/25 20:59 1 tab HS CHAPARRO Administration Albuterol/Ipratropium 3 ml 12/23/24 07:00 01/04/25 05:56 Albuterol/Ipratropium (Duoneb) Rt Zo 3 Ml Nebu INH 01/22/25 06:59 3 ml Q6HRRT HCAPARRO Administration Albuterol/Ipratropium 3 ml 12/30/24 03:46 01/02/25 15:34 Albuterol/Ipratropium (Duoneb) Rt Zo 3 Ml Nebu INH 01/29/25 03:45 3 ml Q2HR PRN Administration SHORTNESS OF BREATH OR WHEEZE Docusate Sodium 100 mg 12/23/24 09:00 01/04/25 08:28 Docusate Sod 100 Mg Capsule PO 01/22/25 08:59 100 mg QDAY CHAPARRO Administration Protocol Guaifenesin/Codeine Phosphate 10 ml 01/02/25 16:22 01/04/25 05:34 Guaifenesin/Cod Syrup 5 Ml Udc PO 02/01/25 16:21 10 ml Q4HR PRN Administration COUGH Protocol Heparin Sodium (Porcine) 5,000 unit 12/25/24 21:00 12/31/24 20:23 Heparin Sod Inj 5000 Unit/Ml Vial SC 01/08/25 20:59 5,000 unit On Hold: 12/31/24 23:55 Q12HR CHAPARRO Administration Metoclopramide HCl 5 mg 01/03/25 10:40 Metoclopramide Inj 5 Mg/Ml Vial 2 Ml IVP 02/02/25 13:59 Q8HR PRN NAUSEA OR VOMITING Protocol Ondansetron HCl 4 mg 12/25/24 21:56 01/04/25 05:57 Ondansetron Inj 2 Mg/Ml Inj 2 Ml IVP 01/24/25 21:55 4 mg Q6HR PRN Administration NAUSEA OR VOMITING Protocol Pantoprazole Sodium 40 mg 01/03/25 09:00 01/04/25 08:29 Pantoprazole 40 Mg Tablet PO 02/02/25 08:59 40 mg QDAY CHAPARRO Administration Protocol Sertraline HCl 50 mg 12/23/24 09:00 01/04/25 08:29 Sertraline Hcl 25 Mg Tablet PO 01/22/25 08:59 50 mg QDAY CHAPARRO Administration Plan Mrs. Andrew is a 64-year-old female past medical significant of asthma, breast cancer s/p mastectomy 2017, thyroid cancer s/p thyroidectomy 2021 and radiation therapy, recently admitted for acute hypoxic respiratory failure secondary to right large pleural effusion discharged 11/20 presenting today 12/23 with similar complaint of SOB. #Acute hypoxic respiratory failure 03/25 #Left sided loculated pleural effusion 03/25 #Suspected malignant effusion, metastatic breast cancer #Hydropneumothorax right lung #Status post thoracentesis 11/07/24 and 11/08/24 #Asthma, by history #Stage IV breast cancer On initial presentation patient speaking in short sentences oxygen saturation 86% on 5L nasal cannula. Recent admission of similar presentation revealed exudative effusion from malignant metastases. Patient established with oncology outpatient, was transferred out for decortication however no intervention was done because of stage IV breast cancer. Case discussed with director consumer affairs, lung ultrasound performed at bedside patient has loculated pleural effusion not enough for thoracentesis, will reassess in a.m. possibly may need chest tube. -Blood Cx (12/23) has been negative for 5 days -Received Chest tube placement for pleural effusion in left lung (12/24/2024) -12/25: Patient drained a total of 3.7 L. Clear pleural followed, pleural WBC 663, pleural LDH 113, pleural total protein 4.0, pleural glucose 104. Considering, serum LDH 158, serum total protein 6.3, patient has exudative pleural effusion likely secondary to malignancy. -12/26: A total of 410ml has been drained from left percutaneous chest tube. 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 -IR deferred planned right upper lobe lung biopsy after identifying consolidation surrounding the lesion on imaging. Instead IR recommended proceeding with a CT guided biopsy of the left apical lung nodule. Oncology was informed and agreed with the revised plan. -Status post Left upper lobe lung mass pulmonary biopsy (12/27/2024). -Post biopsy CT (12/27) was performed which showed a small, less than 5% pneumothorax without evidence of interval progression. -CXR(12/27/2024) showed stable 5 mm left apical pneumothorax. -Repeat CXR (12/28/2024): showed presence of minimal left apical pneumothorax, appearing mildly improved. Also showed stable appearing subcutaneous emphysema of left lateral chest wall extending into the lower neck. Lastly, there were 2 points of kinking of left pleural catheter. -Discussed the case with Oncology, Dr. Flowers. Lung biopsy confirms malignancy consistent with breast primary. Prognostic markers including ER/ME receptors and HER2/stevie results are still pending. -Vp Data, Dr. Nino flushed the chest tube, which resulted 40 mL output with viscous and cellular debris's. Recommended patient to mobilize her body for better drainage and continuous flow. Repositioning of the chest tube was unnecessary. -Chest tube was removed on 01/01 because it was leaking. -The patient's family expressed concern regarding the episode of oxygen desaturation to 82% overnight, noting that the patient's coughing has worsened and is not adequately controlled with Tessalon or albutrol. The cough and O2 desaturation are most likely related to progression of metastatic lung cancer with extensive pulmonary involvement, and a PET scan is required to further evaluate disease extent and guide potential treatment options. -Ordered chest x-ray, coag panel and US pleural effsion of left lung. and if everything is optimal, IR will place PleurX catheter placement. -Patient's PET scan has been delayed to January 21, 2025 at 1:45 PM -Patient was unable to get PleurX catheter today. Will trend the pleural fluid level tomorrow. Patient's TSH level has been increasing. On admission, TSH 101.7 with free T4: 0.86. On 01/03, TSH>150 with free T4: 0.78. Patient's p.o. levothyroxine 125 mcg has been stopped. IV levothyroxine 125 mcg x 1 has been ordered tomorrow 01/04 at 6 AM. Will continue to monitor her TSH level. -Per oncology, the biopsy results of the lung showed dual metastasis of breast primary and papillary thyroid carcinoma. Receptors were negative ER/ME, negative HER2/Stevie and negative KI?67 15 to 20% positive. Second focus consistent with metastatic thyroid carcinoma IHC is pending for confirmation. PD-L1 was requested for possible immunotherapy. Her elevated TSH could be related to the metastic cancer problem. Plan: - IV levothyroxine 125 mcg x 1 has been ordered tomorrow 01/04 at 6 AM. Will continue to monitor her TSH level. -Continue DuoNebs q6h, DuoNebs every 2 hours as needed -[place] 5 every 4 hours as needed, [place] 5 at night @2100 -Supplemental O2, titrate as tolerated to maintain SpO2 >93% -Incentive spirometry -Pulmonology consulted, appreciate recommendations. -Oncology consulted, appreciate recommendations -Pending Pleural Fluid culture. #Esophageal Disphagia -Sensation of food/medicine not going down, with epigastric chest discomfort on eating. -Difficulty removing phlegm. -Ddx: GERD, stictures, Mets to esophagus. -Swallow eval (01/01/2025): Any large pills should be crushed. Pt is independent in eating/swallowing using compensatory techniques and specific diet selections. No further swallow treatment servives warranted at this time. Plan: -Based on swallow evaluation, outpatient management is recommended. #Hypothyroidism #Hx thyroid cancer s/p thyroidectomy 2021 No current active symptoms of hyperthyroid currently. TSH >100 free T4 0.86 Free T3 1.7 Plan: -Increased levothyroxine dosage from 75 mcg/day to 100mcg/day. -Outpatient titration of medication #Hx of pressure injury, coccyx, stage III Patient reports frequent back pain and it was noted that the patient had a possible pressure injury and her coccyx area. Per last admission, the wound staging is stage III without any drainage or order. Plan: -Referral to wound care -Continue to monitor #Depression - Continue home dose sertraline Health Maintenance: Code status: Full code DVT prophylaxis: Heparin every 12 hours (temporily stopped for potential PleurX catheter placement) GI prophylaxis: Protonix 40mg IVP QD Diet: Regular diet Mccallum: None Lines: PIV Supplemental O2: Nasal cannula Disposition: Tele Assessment and plan discussed with my attending physician Dr. Buck and Dr. Ramirez (PGY-2) Dr. Henry (PGY-1) - Internal medicine resident Attending Provider Attestation/Addendum I, Lindsay Buck DO, attest that I was physically present for the shannon portions of the service and evaluated the patient with the resident and I reviewed and discussed the case with the resident and agree with the resident's findings and plans of care as documented above Patient seen and evaluated this AM. She remains on 2- 3L/NC and complains of dry mouth and trouble swallowing, which has been a chronic problem due to radiation of thyroid. Son is at bedside with patient's daughter in law, who helps patient in making her decisions. Patient continues to have inadequate fluid for pleurex catheter placement in left chest. Discussed with patient and family that the pleurex catheter can be coordinated as an outpatient procedure. Family is concerned that patient will have desaturation as noted a few times on this admission while sleeping due to patient's inability to clear her secretions. Will place a scopolamine patch to help with decreasing secretions. Case was discussed at length with Dr. Flowers, radiation oncology, regarding pathology results of lung biopsy which shows two different types of malignant cells including metastatic breast CA and papillary thyroid CA. He had discussed this with patient's outpatient oncologist as well who will review the pathology. TSH has been significantly elevated which oncology and PCP has monitored closely. Patient had been euthyroid with 75mcg. However, due to TSH>150, patient was given 125mcg IV as elevated TSH can promote worsening of papillary thyroid cancer. Will place patient on 137mcg of synthroid as per weight-based dosing. Goal TSH is to be lower end of normal. Will need to repeat TSH and free T4 within a weekof discharge, although it may take weeks for TSH to change. Will continue with current management. Will also order TSH and free T4 as per oncology's request in AM. Thyroglobulin level is also pending. Patient continues to have decreased breath sounds in left lung velazquez. No peripheral edema is noted. Will continue with current management.
--- NOTE | 2025-01-04 10:49 | PC.SS ---
SS spoke to Eneida a patient account representative from patient's health insurance, phone# [phone] who is aware pt is waiting for PleurX drain and [facility] is the accepting SNF. Per Eneida, she has received inquiry sent from [facility] and is waiting for d/c orders.
--- NOTE | 2025-01-04 12:30 | CHAP ---
Patient was visited by the Spiritual Care Volunteer who prayed for them. (Volunteer was in the hospital from 09:15-12:30)
[2025-01-04] MEDS: SCOPOLAMINE 1 MG TDSY TOP (13:36)
[2025-01-05] VITALS (9 sets, daily range): BP systolic 100–129; BP diastolic 76–84; PULSE 78–98; RESP 13–30; TEMP 36–36.4; O2SAT 92–98; BMI 24.9
[2025-01-05] MEDS: HYDROcodone/APAP 5/325 TABLET 1 TAB PO ×6 (00:45→22:57)
[2025-01-05] MEDS: guaiFENesin/COD SYRUP 5 ML UDC 10 ML PO ×5 (00:45→22:46)
[2025-01-05] MEDS: ALBUTEROL/IPRATROPIUM (Duoneb) RT SOL 3 ML NEBU INH ×3 (06:28→17:43)
[2025-01-05 08:48] LABS: Basophils # (Auto) 0.1 Thou/mm3 (0.0-0.2); Basophils % (Auto) 1 % (0-2.5); Eosinophils # (Auto) 3.3 Thou/mm3 (0.0-0.5); Eosinophils % (Auto) 18 % (0-10); Hematocrit 47.7 % (36.0-46.0); Hemoglobin 15.3 g/dL (12.0-16.0); Immature Granulocytes Auto 0.15 Thou/mm3 (0.00-0.00); Lymphocytes # (Auto) 0.9 Thou/mm3 (1.0-4.8); Lymphocytes % (Auto) 5 % (10-50); Mean Corpuscular HGB Conc 32.1 g/dl (31.0-37.0); Mean Corpuscular Hemoglobin 29.0 pg (25.0-35.0); Mean Corpuscular Volume 91 fL (80-100); Monocytes # (Auto) 1.2 Thou/mm3 (0.0-0.8); Monocytes % (Auto) 6 % (0-12); Neutrophils # (Auto) 12.9 Thou/mm3 (1.8-7.7); Neutrophils % (Auto) 70 % (37-80); Nucleated Red Blood Cell # 0.00 Thou/mm3 (0.00-0.00); Nucleated Red Blood Cell % 0 /100 WBC (0); Platelet Count 451 Thou/mm3 (140-440); RDW Standard Deviation 47.2 fL (36.4-46.3); Red Blood Count 5.27 Miln/mm3 (4.00-5.20); White Blood Count 18.5 Thou/mm3 (3.6-11.0)
[2025-01-05 09:15] LABS: Alanine Aminotransferase 8 U/L (10-49); Albumin, Serum 4.0 gm/dL (3.4-4.8); Albumin/Globulin Ratio 1.8 (1.2-2.2); Alkaline Phosphatase 92 U/L (46-116); Anion Gap 9 (7-16); Aspartate Amino Transferase 15 U/L (0-34); BUN/Creatinine Ratio 10 Ratio (12-20); Bilirubin,Total 0.3 mg/dL (0.3-1.2); Blood Urea Nitrogen 6 mg/dL (9-23); Calcium 8.8 mg/dL (8.3-10.6); Calcium (Corrected) 8.8 mg/dL (8.5-10.1); Carbon Dioxide 27.7 mMol/L (20.0-31.0); Chloride 98 mMol/L (98-107); Creatinine (Component) 0.6 mg/dL (0.6-1.3); Estimated Creatinine Clearance 103.1 mL/min (>60); Free T4 (Free Thyroxine) 1.09 ng/dL (0.89-1.76); Globulin 2.2 gm/dL (2.3-3.5); Glucose 104 mg/dL (74-106); Magnesium 1.9 mg/dL (1.6-2.6); Osmolality,Calculated 267 (275-295); Phosphorous 3.5 mg/dL (2.4-5.1); Potassium 4.5 mMol/L (3.4-5.1); Sodium 135 mMol/L (136-145); Thyroid Stimulating Hormone 94.24 uIU/mL (0.55-4.78); Total Protein 6.2 gm/dL (5.7-8.2); eGFR > 60 See Note
[2025-01-05] MEDS: PANTOPRAZOLE 40 MG TABLET PO (09:58)
[2025-01-05] MEDS: SERTRALINE HCL 25 MG TABLET 50 MG PO (09:58)
[2025-01-05] MEDS: DOCUSATE SOD 100 MG CAPSULE PO (09:59)
[2025-01-05] MEDS: METOCLOPRAMIDE INJ 5 MG/ML VIAL 2 ML IVP ×2 (10:15→22:46)
--- NOTE | 2025-01-05 12:49 | PC.SS ---
ASW spoke to Yamile at [facility] who stated that she has not received authorization from insurance yet and stated she will not receive authorization until Tuesday. Yamile from [facility] stated that she would reach out to insurance compliance analyst but they may be out of during the weekend. ASW informed Team [facility] doctors.
--- NOTE | 2025-01-05 13:04 | PD.RESPRO ---
Documentation for date of: 01/05/25 Subjective Subjective Interval history: Patient seen and examined at bedside, discussed with patient and family at bedside regarding possible discharge today and outpatient follow-up for placement of PleurX catheter. Patient is stable on 3 L nasal cannula, stable for discharge however insurance authorization will not be available till Tuesday. Exam Vital Signs Temp Pulse Resp BP Pulse Ox O2 Del Method O2 Flow Rate 97.2 F 88 19 124/77 92 L Nasal Cannula 3 01/05/25 08:00 01/05/25 12:00 01/05/25 08:00 01/05/25 08:00 01/05/25 08:00 01/05/25 08:00 01/05/25 08:00 Narrative Exam General: No acute distress, well nourished, AAO x3 Eye: Normal conjunctiva, no scleral icterus HENT: Normocephalic, atraumatic, hearing intact to conversation at normal volume, moist oral mucosa Neck: Supple, non-tender, no JVD, no lymphadenopathy Lungs: Symmetric chest rise, No wheezing, rhonchi, crackles, Decreased breathe sounds in bilateral lung bases. Heart: Peripheral pulses intact bilaterally, Regular Rate and Rhythm. Abdomen: Soft, non-tender, non-distended, no palpable masses Musculoskeletal: Normal range of motion and strength, No cyanosis or edema, No visible joint swelling Skin: Skin is warm, dry, no rashes or lesions. Psychiatric: Cooperative, appropriate mood and affect, Awake and alert, not agitated Neuro: Cranial nerves II-XII grossly intact. Strength 5/5 throughout. Sensations intact to light touch. Objective Labs 01/06/25 04:35 01/06/25 04:35 Labs: Laboratory Results - last 24 hr 01/05/25 07:56 WBC 18.5 H RBC 5.27 H Hgb 15.3 Hct 47.7 H MCV 91 MCH 29.0 MCHC 32.1 RDW Std Deviation 47.2 H Plt Count 451 H Neut % (Auto) 70 Lymph % (Auto) 5 L [place] % (Auto) 6 Eos % (Auto) 18 H Baso % (Auto) 1 Neut # (Auto) 12.9 H Lymph # (Auto) 0.9 L [place] # (Auto) 1.2 H Eos # (Auto) 3.3 H Baso # (Auto) 0.1 Immature Gran # (Auto) 0.15 H Absolute Nucleated RBC 0.00 Immature Gran % 1 H Nucleated RBC % 0 Sodium 135 L Potassium 4.5 Chloride 98 Carbon Dioxide 27.7 Anion Gap 9 BUN 6 L Creatinine 0.6 Estim Creat Clear Calc 103.1 eGFR > 60 BUN/Creatinine Ratio 10 L Glucose 104 Calculated Osmolality 267 L Calcium 8.8 Corrected Calcium 8.8 Phosphorus 3.5 Magnesium 1.9 Total Bilirubin 0.3 AST 15 ALT 8 L Alkaline Phosphatase 92 Total Protein 6.2 Albumin 4.0 Globulin 2.2 L Albumin/Globulin Ratio 1.8 TSH 94.24 H* D Free T4 1.09 Quality Measures Quality Measures VTE prophylaxis Advance care planning discussed with:: patient and child Assessment & Plan Assessment Current Active Medications: Generic Name Dose Route Start Last Admin Trade Name Freq PRN Reason Stop Dose Admin Acetaminophen 650 mg 12/23/24 05:49 Acetaminophen 325 Mg Tablet PO 01/22/25 05:48 Q6H PRN Fever >100.4 or pain 1-3 Hydrocodone Bitart/Acetaminophen 1 tab 12/30/24 02:25 01/05/25 10:19 Hydrocodone/Apap 5/325 Tablet PO 01/08/25 02:24 1 tab Q4HR PRN Administration Pain 7-10 Hydrocodone Bitart/Acetaminophen 1 tab 12/30/24 21:00 01/04/25 20:53 Hydrocodone/Apap 5/325 Tablet PO 01/08/25 20:59 1 tab HS CHAPARRO Administration Albuterol/Ipratropium 3 ml 12/23/24 07:00 01/05/25 06:28 Albuterol/Ipratropium (Duoneb) Rt Zo 3 Ml Nebu INH 01/22/25 06:59 3 ml Q6HRRT CHAPARRO Administration Albuterol/Ipratropium 3 ml 12/30/24 03:46 01/02/25 15:34 Albuterol/Ipratropium (Duoneb) Rt Zo 3 Ml Nebu INH 01/29/25 03:45 3 ml Q2HR PRN Administration SHORTNESS OF BREATH OR WHEEZE Docusate Sodium 100 mg 12/23/24 09:00 01/05/25 09:59 Docusate Sod 100 Mg Capsule PO 01/22/25 08:59 100 mg QDAY CHAPARRO Administration Protocol Guaifenesin/Codeine Phosphate 10 ml 01/02/25 16:22 11/15/25 10:24 Guaifenesin/Cod Syrup 5 Ml Udc PO 02/01/25 16:21 10 ml Q4HR PRN Administration COUGH Protocol Heparin Sodium (Porcine) 5,000 unit 12/25/24 21:00 12/31/24 20:23 Heparin Sod Inj 5000 Unit/Ml Vial SC 01/08/25 20:59 5,000 unit On Hold: 12/31/24 23:55 Q12HR CHAPARRO Administration Levothyroxine Sodium 112 mcg/ 137 mcg 01/05/25 06:00 01/05/25 06:17 Levothyroxine Sodium 25 mcg PO 02/04/25 05:59 137 mcg ACBR CHAPARRO Administration Metoclopramide HCl 5 mg 01/03/25 10:40 01/05/25 10:15 Metoclopramide Inj 5 Mg/Ml Vial 2 Ml IVP 02/02/25 13:59 5 mg Q8HR PRN Administration NAUSEA OR VOMITING Protocol Ondansetron HCl 4 mg 12/25/24 21:56 01/04/25 05:57 Ondansetron Inj 2 Mg/Ml Inj 2 Ml IVP 01/24/25 21:55 4 mg Q6HR PRN Administration NAUSEA OR VOMITING Protocol Pantoprazole Sodium 40 mg 01/03/25 09:00 01/05/25 09:58 Pantoprazole 40 Mg Tablet PO 02/02/25 08:59 40 mg QDAY CHAPARRO Administration Protocol Scopolamine 1 mg 01/04/25 13:30 01/04/25 13:36 Scopolamine 1 Mg Tdsy TOP 02/03/25 13:29 1 mg Q3D CHAPARRO Administration Sertraline HCl 50 mg 12/23/24 09:00 01/05/25 09:58 Sertraline Hcl 25 Mg Tablet PO 01/22/25 08:59 50 mg QDAY CHAPARRO Administration Plan Mrs. Andrew is a 64-year-old female past medical significant of asthma, breast cancer s/p mastectomy 2017, thyroid cancer s/p thyroidectomy 2021 and radiation therapy, recently admitted for acute hypoxic respiratory failure secondary to right large pleural effusion discharged 11/20 presenting today 12/23 with similar complaint of SOB. #Acute hypoxic respiratory failure 2/2 #Left sided malignant pleural effusion 2/2 #Metastatic breast cancer, stage IV #Chronic Hydropneumothorax right lung, trapped lung #S/P Left Lung Biopsy #Status post chest tube placement 12/24/24, discontinued 01/01/25 #Asthma, by history On initial presentation patient speaking in short sentences oxygen saturation 86% on 5L nasal cannula. Recent admission of similar presentation revealed exudative effusion from malignant metastases. Patient established with oncology outpatient, was transferred out for decortication however no intervention was done because of stage IV breast cancer per patient. -Received Chest tube placement for pleural effusion in left lung (12/24/2024) -12/25: Patient drained a total of 3.7 L. Clear pleural followed, pleural WBC 663, pleural LDH 113, pleural total protein 4.0, pleural glucose 104. Considering, serum LDH 158, serum total protein 6.3, patient has exudative pleural effusion likely secondary to malignancy. -12/26: A total of 410ml has been drained from left percutaneous chest tube. 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 Status post Left upper lobe lung mass pulmonary biopsy (12/27/2024). -Discussed the case with Oncology, Dr. Flowers. Lung biopsy confirms malignancy consistent with breast primary. Prognostic markers including ER/MD receptors and HER2/stevie results are still pending. -Chest tube was removed on 01/01 because it was leaking. -Patient's PET scan has been delayed to January 21, 2025 at 1:45 PM -Patient was unable to get PleurX catheter. Will trend the pleural fluid level. -Per oncology, the biopsy results of the lung showed dual metastasis of breast primary and papillary thyroid carcinoma. Receptors were negative ER/MD, negative HER2/Stevie and negative KI?67 15 to 20% positive. Second focus consistent with metastatic thyroid carcinoma IHC is pending for confirmation. PD-L1 was requested for possible immunotherapy. Her elevated TSH could be related to the metastic cancer problem. Plan: -Continue DuoNebs q6h, DuoNebs every 2 hours as needed -[place] 5 every 4 hours as needed, [place] 5 at night @2100 -Supplemental O2, titrate as tolerated to maintain SpO2 >93% -Incentive spirometry -Pulmonology consulted, appreciate recommendations. -Oncology consulted, appreciate recommendations -Pending Pleural Fluid culture. #Hypothyroidism #Hx thyroid cancer s/p thyroidectomy 2021 No current active symptoms of hyperthyroid currently. TSH >100 free T4 0.86 Free T3 1.7 Patient's TSH level has been increasing. On admission, TSH 101.7 with free T4: 0.86. On 01/03, TSH>150 with free T4: 0.78. Patient's p.o. levothyroxine 125 mcg has been stopped. IV levothyroxine 125 mcg x 1 has been ordered tomorrow 01/04 at 6 AM. Will continue to monitor her TSH level. Plan: -Increased levothyroxine dosage from 75 mcg/day to 137 mcg/day. -Outpatient titration of medication -IV levothyroxine 125 mcg x 1 has been ordered tomorrow 01/04 at 6 AM. Will continue to monitor her TSH level. #Dysphagia -Sensation of food/medicine not going down, with epigastric chest discomfort on eating. -Difficulty removing phlegm. -Ddx: GERD, stictures, Mets to esophagus. -Swallow eval (01/01/2025): Any large pills should be crushed. Pt is independent in eating/swallowing using compensatory techniques and specific diet selections. No further swallow treatment servives warranted at this time. Plan: -Based on swallow evaluation, outpatient management is recommended. #Hx of pressure injury, coccyx, stage III Patient reports frequent back pain and it was noted that the patient had a possible pressure injury and her coccyx area. Per last admission, the wound staging is stage III without any drainage or order. Plan: -Referral to wound care -Continue to monitor #Depression - Continue home dose sertraline Health Maintenance: Code status: Full code DVT prophylaxis: Heparin every 12 hours GI prophylaxis: Protonix 40mg Diet: Regular diet [place]: None Lines: PIV Supplemental O2: Nasal cannula Disposition: Tele Case discussed with Attending Physician DO Nasreen Glaser MD Internal Medicine PGY-2 Disclaimer: This note was dictated by speech recognition. Minor errors in director of knowledge management may be present due to voice recognition software. Attending Provider Attestation/Addendum Lindsay Mckeon DO, attest that I was physically present for the shannon portions of the service and evaluated the patient with the resident and I reviewed and discussed the case with the resident and agree with the resident's findings and plans of care as documented above Patient seen and evaluated this AM. She states she is feeling better and improved with scopolamine patch. Patient will be discharged to SNF. Repeat TSH is improved. Will continue with 137mcg of synthroid. Patient is stable for transfer to SNF at this time. Pending authorization.
[2025-01-05] MEDS: HEPARIN SOD INJ 5000 UNIT/ML VIAL SC (20:23)
[2025-01-06] VITALS (12 sets, daily range): BP systolic 116–138; BP diastolic 71–90; PULSE 87–134; RESP 16–23; TEMP 35.9–36.4; O2SAT 92–99; BMI 24.9
[2025-01-06] MEDS: ALBUTEROL/IPRATROPIUM (Duoneb) RT SOL 3 ML NEBU INH ×5 (00:48→18:56)
[2025-01-06] MEDS: guaiFENesin/COD SYRUP 5 ML UDC 10 ML PO ×5 (04:59→23:02)
[2025-01-06] MEDS: HYDROcodone/APAP 5/325 TABLET 1 TAB PO ×6 (04:59→23:03)
[2025-01-06 05:44] LABS: Basophils # (Auto) 0.2 Thou/mm3 (0.0-0.2); Basophils % (Auto) 1 % (0-2.5); Eosinophils # (Auto) 2.7 Thou/mm3 (0.0-0.5); Eosinophils % (Auto) 14 % (0-10); Hematocrit 46.1 % (36.0-46.0); Hemoglobin 14.8 g/dL (12.0-16.0); Immature Granulocytes Auto 0.19 Thou/mm3 (0.00-0.00); Lymphocytes # (Auto) 1.1 Thou/mm3 (1.0-4.8); Lymphocytes % (Auto) 5 % (10-50); Mean Corpuscular HGB Conc 32.1 g/dl (31.0-37.0); Mean Corpuscular Hemoglobin 28.9 pg (25.0-35.0); Mean Corpuscular Volume 90 fL (80-100); Monocytes # (Auto) 1.3 Thou/mm3 (0.0-0.8); Monocytes % (Auto) 6 % (0-12); Neutrophils # (Auto) 14.5 Thou/mm3 (1.8-7.7); Neutrophils % (Auto) 73 % (37-80); Nucleated Red Blood Cell # 0.00 Thou/mm3 (0.00-0.00); Nucleated Red Blood Cell % 0 /100 WBC (0); Platelet Count 493 Thou/mm3 (140-440); RDW Standard Deviation 46.3 fL (36.4-46.3); Red Blood Count 5.12 Miln/mm3 (4.00-5.20); White Blood Count 19.9 Thou/mm3 (3.6-11.0)
[2025-01-06] MEDS: LEVOTHYROXINE SODIUM 125 MCG, LEVOTHYROXINE SODIUM 25 MCG 150 MCG PO (06:04)
[2025-01-06 06:23] LABS: Alanine Aminotransferase 9 U/L (10-49); Albumin, Serum 4.0 gm/dL (3.4-4.8); Albumin/Globulin Ratio 1.8 (1.2-2.2); Alkaline Phosphatase 91 U/L (46-116); Anion Gap 12 (7-16); Aspartate Amino Transferase 22 U/L (0-34); BUN/Creatinine Ratio 8 Ratio (12-20); Bilirubin,Total 0.3 mg/dL (0.3-1.2); Blood Urea Nitrogen < 5 mg/dL (9-23); Calcium 8.9 mg/dL (8.3-10.6); Calcium (Corrected) 8.9 mg/dL (8.5-10.1); Carbon Dioxide 26.7 mMol/L (20.0-31.0); Chloride 97 mMol/L (98-107); Creatinine (Component) 0.6 mg/dL (0.6-1.3); Estimated Creatinine Clearance 103.1 mL/min (>60); Globulin 2.2 gm/dL (2.3-3.5); Glucose 80 mg/dL (74-106); Magnesium 2.0 mg/dL (1.6-2.6); Osmolality,Calculated 268 (275-295); Phosphorous 3.5 mg/dL (2.4-5.1); Potassium 4.8 mMol/L (3.4-5.1); Sodium 136 mMol/L (136-145); Total Protein 6.2 gm/dL (5.7-8.2); eGFR > 60 See Note
[2025-01-06] MEDS: DOCUSATE SOD 100 MG CAPSULE PO (09:37)
[2025-01-06] MEDS: PANTOPRAZOLE 40 MG TABLET PO (09:37)
[2025-01-06] MEDS: SERTRALINE HCL 25 MG TABLET 50 MG PO (09:38)
[2025-01-06] MEDS: POLYETHYLENE GLYCOL 17 GM PACKET PO (09:38)
[2025-01-06] MEDS: HEPARIN SOD INJ 5000 UNIT/ML VIAL SC (09:40)
--- NOTE | 2025-01-06 13:10 | ESPR_ITS ---
Documentation for date of: 01/06/25 Subjective Subjective Interval history: Patient seen and examined at bedside, discussed with patient and family at bedside regarding possible discharge today and outpatient follow-up for placement of PleurX catheter. Patient continues to remain agreeable. Patient is stable on 3-4 L nasal cannula, stable for discharge however insurance authorization will not be available till Tuesday. Patient complains of constipation, started on bowel regimen. Exam Vital Signs Temp Pulse Resp BP Pulse Ox O2 Del Method O2 Flow Rate 96.8 F 97 20 116/83 92 L Nasal Cannula 5 01/06/25 12:00 01/06/25 12:00 01/06/25 12:00 01/06/25 12:00 01/06/25 12:00 01/06/25 12:00 01/06/25 12:00 Narrative Exam General: No acute distress, well nourished, AAO x3 Eye: Normal conjunctiva, no scleral icterus HENT: Normocephalic, atraumatic, hearing intact to conversation at normal volume, moist oral mucosa Neck: Supple, non-tender, no JVD, no lymphadenopathy Lungs: Symmetric chest rise, No wheezing, rhonchi, crackles, Decreased breathe sounds in bilateral lung bases. Heart: Peripheral pulses intact bilaterally, Regular Rate and Rhythm. Abdomen: Soft, non-tender, non-distended, no palpable masses Musculoskeletal: Normal range of motion and strength, No cyanosis or edema, No visible joint swelling Skin: Skin is warm, dry, no rashes or lesions. Psychiatric: Cooperative, appropriate mood and affect, Awake and alert, not agitated Neuro: Cranial nerves II-XII grossly intact. Strength 5/5 throughout. Sensations intact to light touch. Objective Labs 01/06/25 04:35 01/06/25 04:35 Labs: Laboratory Results - last 24 hr 01/06/25 04:35 WBC 19.9 H RBC 5.12 Hgb 14.8 Hct 46.1 H MCV 90 MCH 28.9 MCHC 32.1 RDW Std Deviation 46.3 Plt Count 493 H D Neut % (Auto) 73 Lymph % (Auto) 5 L [place] % (Auto) 6 Eos % (Auto) 14 H Baso % (Auto) 1 Neut # (Auto) 14.5 H Lymph # (Auto) 1.1 [place] # (Auto) 1.3 H Eos # (Auto) 2.7 H Baso # (Auto) 0.2 Immature Gran # (Auto) 0.19 H Absolute Nucleated RBC 0.00 Immature Gran % 1 H Nucleated RBC % 0 Sodium 136 Potassium 4.8 Chloride 97 L Carbon Dioxide 26.7 Anion Gap 12 BUN < 5 L Creatinine 0.6 Estim Creat Clear Calc 103.1 eGFR > 60 BUN/Creatinine Ratio 8 L Glucose 80 Calculated Osmolality 268 L Calcium 8.9 Corrected Calcium 8.9 Phosphorus 3.5 Magnesium 2.0 Total Bilirubin 0.3 AST 22 ALT 9 L Alkaline Phosphatase 91 Total Protein 6.2 Albumin 4.0 Globulin 2.2 L Albumin/Globulin Ratio 1.8 Quality Measures Quality Measures VTE prophylaxis Advance care planning discussed with:: patient Assessment & Plan Assessment Current Active Medications: Generic Name Dose Route Start Last Admin Trade Name Freq PRN Reason Stop Dose Admin Acetaminophen 650 mg 12/23/24 05:49 Acetaminophen 325 Mg Tablet PO 01/22/25 05:48 Q6H PRN Fever >100.4 or pain 1-3 Hydrocodone Bitart/Acetaminophen 1 tab 12/30/24 02:25 01/06/25 09:37 Hydrocodone/Apap 5/325 Tablet PO 01/08/25 02:24 1 tab Q4HR PRN Administration Pain 7-10 Hydrocodone Bitart/Acetaminophen 1 tab 12/30/24 21:00 01/05/25 20:23 Hydrocodone/Apap 5/325 Tablet PO 01/08/25 20:59 1 tab HS CHAPARRO Administration Albuterol/Ipratropium 3 ml 12/23/24 07:00 01/06/25 06:56 Albuterol/Ipratropium (Duoneb) Rt Zo 3 Ml Nebu INH 01/22/25 06:59 3 ml Q6HRRT CHAPARRO Administration Albuterol/Ipratropium 3 ml 12/30/24 03:46 01/02/25 15:34 Albuterol/Ipratropium (Duoneb) Rt Zo 3 Ml Nebu INH 01/29/25 03:45 3 ml Q2HR PRN Administration SHORTNESS OF BREATH OR WHEEZE Docusate Sodium 100 mg 12/23/24 09:00 01/06/25 09:37 Docusate Sod 100 Mg Capsule PO 01/22/25 08:59 100 mg QDAY CHAPARRO Administration Protocol Guaifenesin/Codeine Phosphate 10 ml 01/02/25 16:22 01/06/25 09:36 Guaifenesin/Cod Syrup 5 Ml Udc PO 02/01/25 16:21 10 ml Q4HR PRN Administration COUGH Protocol Heparin Sodium (Porcine) 5,000 unit 12/25/24 21:00 01/06/25 09:40 Heparin Sod Inj 5000 Unit/Ml Vial SC 01/08/25 20:59 5,000 unit Q12HR CHAPARRO Administration Levothyroxine Sodium 125 mcg/ 150 mcg 01/06/25 06:00 01/06/25 06:04 Levothyroxine Sodium 25 mcg PO 02/05/25 05:59 150 mcg ACBR CHAPARRO Administration Metoclopramide HCl 5 mg 01/03/25 10:40 01/05/25 22:46 Metoclopramide Inj 5 Mg/Ml Vial 2 Ml IVP 02/02/25 13:59 5 mg Q8HR PRN Administration NAUSEA OR VOMITING Protocol Ondansetron HCl 4 mg 12/25/24 21:56 01/04/25 05:57 Ondansetron Inj 2 Mg/Ml Inj 2 Ml IVP 01/24/25 21:55 4 mg Q6HR PRN Administration NAUSEA OR VOMITING Protocol Pantoprazole Sodium 40 mg 01/03/25 09:00 01/06/25 09:37 Pantoprazole 40 Mg Tablet PO 02/02/25 08:59 40 mg QDAY CHAPARRO Administration Protocol Polyethylene Glycol 17 gm 01/06/25 09:00 01/06/25 09:38 Polyethylene Glycol 17 Gm Packet PO 02/05/25 08:59 17 gm QDAY CHAPARRO Administration Scopolamine 1 mg 01/04/25 13:30 01/04/25 13:36 Scopolamine 1 Mg Tdsy TOP 02/03/25 13:29 1 mg Q3D CHAPARRO Administration Sertraline HCl 50 mg 12/23/24 09:00 01/06/25 09:38 Sertraline Hcl 25 Mg Tablet PO 01/22/25 08:59 50 mg QDAY CHAPARRO Administration Plan Mrs. Andrew is a 64-year-old female past medical significant of asthma, breast cancer s/p mastectomy 2017, thyroid cancer s/p thyroidectomy 2021 and radiation therapy, recently admitted for acute hypoxic respiratory failure secondary to right large pleural effusion discharged 11/20 presenting today 12/23 with similar complaint of SOB. #Acute hypoxic respiratory failure 2/2 #Left sided malignant pleural effusion 2/2 #Metastatic breast cancer, stage IV #Chronic Hydropneumothorax right lung, trapped lung #S/P Left Lung Biopsy #Status post chest tube placement 12/24/24, discontinued 01/01/25 #Asthma, by history On initial presentation patient speaking in short sentences oxygen saturation 86% on 5L nasal cannula. Recent admission of similar presentation revealed exudative effusion from malignant metastases. Patient established with oncology outpatient, was transferred out for decortication however no intervention was done because of stage IV breast cancer per patient. -Received Chest tube placement for pleural effusion in left lung (12/24/2024) -12/25: Patient drained a total of 3.7 L. Clear pleural followed, pleural WBC 663, pleural LDH 113, pleural total protein 4.0, pleural glucose 104. Considering, serum LDH 158, serum total protein 6.3, patient has exudative pleural effusion likely secondary to malignancy. -12/26: A total of 410ml has been drained from left percutaneous chest tube. 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 Status post Left upper lobe lung mass pulmonary biopsy (12/27/2024). -Discussed the case with Oncology, Dr. Flowers. Lung biopsy confirms malignancy consistent with breast primary. Prognostic markers including ER/AZ receptors and HER2/stevie results are still pending. -Chest tube was removed on 01/01 because it was leaking. -Patient's PET scan has been delayed to January 21, 2025 at 1:45 PM -Patient was unable to get PleurX catheter. Will trend the pleural fluid level. -Per oncology, the biopsy results of the lung showed dual metastasis of breast primary and papillary thyroid carcinoma. Receptors were negative ER/AZ, negative HER2/Stevie and negative KI?67 15 to 20% positive. Second focus consistent with metastatic thyroid carcinoma IHC is pending for confirmation. PD-L1 was requested for possible immunotherapy. Her elevated TSH could be related to the metastic cancer problem. Plan: -Continue DuoNebs q6h, DuoNebs every 2 hours as needed -[place] 5 every 4 hours as needed, [place] 5 at night @2100 -Supplemental O2, titrate as tolerated to maintain SpO2 >93% -Incentive spirometry -Pulmonology consulted, appreciate recommendations. -Oncology consulted, appreciate recommendations #Hypothyroidism #Hx thyroid cancer s/p thyroidectomy 2021 No current active symptoms of hyperthyroid currently. TSH >100 free T4 0.86 Free T3 1.7 Patient's TSH level has been increasing. On admission, TSH 101.7 with free T4: 0.86. On 01/03, TSH>150 with free T4: 0.78. Patient's p.o. levothyroxine 125 mcg has been stopped. IV levothyroxine 125 mcg x 1 has been ordered tomorrow 01/04 at 6 AM. Will continue to monitor her TSH level. Plan: -Increased levothyroxine dosage from 75 mcg/day to 137 mcg/day. -Outpatient titration of medication #Dysphagia -Sensation of food/medicine not going down, with epigastric chest discomfort on eating. -Difficulty removing phlegm. -Ddx: GERD, stictures, Mets to esophagus. -Swallow eval (01/01/2025): Any large pills should be crushed. Pt is independent in eating/swallowing using compensatory techniques and specific diet selections. No further swallow treatment servives warranted at this time. Plan: -Based on swallow evaluation, outpatient management is recommended. #Hx of pressure injury, coccyx, stage III Patient reports frequent back pain and it was noted that the patient had a possible pressure injury and her coccyx area. Per last admission, the wound staging is stage III without any drainage or order. Plan: -Referral to wound care -Continue to monitor #Depression - Continue home dose sertraline Health Maintenance: Code status: Full code DVT prophylaxis: Heparin every 12 hours GI prophylaxis: Protonix 40mg Diet: Regular diet [place]: None Lines: PIV Supplemental O2: Nasal cannula Disposition: Tele Case discussed with Attending Physician DO Nasreen Glaser MD Internal Medicine PGY-2 Disclaimer: This note was dictated by speech recognition. Minor errors in customer marketing assistant may be present due to voice recognition software. Attending Provider Attestation/Addendum Lindsay Mckeon DO, attest that I was physically present for the shannon portions of the service and evaluated the patient with the resident and I reviewed and discussed the case with the resident and agree with the resident's findings and plans of care as documented above Patient seen and eval this a.m. No acute events overnight. She states that she is feeling better, particularly with less secretions given the scopolamine. She denies any lightheadedness. Patient has 1+ pitting edema in bilateral lower extremities and encouraged to keep them elevated at rest. Patient is pending authorization for SNF placement. She remains on 3 to 4 L nasal cannula. Anticipate discharge within next 24 hours.
--- NOTE | 2025-01-06 15:15 | PD.ONCPROG ---
Documentation for date of: 01/06/25 Subjective Subjective Interval history: Patient awaiting transfer to a shelter facility for rehab. Being considered for PleurX catheter placement to be done as outpatient. Exam Vital Signs Temp Pulse Resp BP Pulse Ox O2 Del Method O2 Flow Rate 96.8 F 108 H 22 H 116/83 98 Nasal Cannula 4 01/06/25 12:00 01/06/25 13:15 01/06/25 13:15 01/06/25 12:00 01/06/25 13:15 01/06/25 12:00 01/06/25 13:15 Narrative Exam Coughing frequently partially relieved by meds. Objective Labs 01/06/25 04:35 01/06/25 04:35 Labs: Laboratory Results - last 24 hr 01/06/25 04:35 WBC 19.9 H RBC 5.12 Hgb 14.8 Hct 46.1 H MCV 90 MCH 28.9 MCHC 32.1 RDW Std Deviation 46.3 Plt Count 493 H D Neut % (Auto) 73 Lymph % (Auto) 5 L [place] % (Auto) 6 Eos % (Auto) 14 H Baso % (Auto) 1 Neut # (Auto) 14.5 H Lymph # (Auto) 1.1 [place] # (Auto) 1.3 H Eos # (Auto) 2.7 H Baso # (Auto) 0.2 Immature Gran # (Auto) 0.19 H Absolute Nucleated RBC 0.00 Immature Gran % 1 H Nucleated RBC % 0 Sodium 136 Potassium 4.8 Chloride 97 L Carbon Dioxide 26.7 Anion Gap 12 BUN < 5 L Creatinine 0.6 Estim Creat Clear Calc 103.1 eGFR > 60 BUN/Creatinine Ratio 8 L Glucose 80 Calculated Osmolality 268 L Calcium 8.9 Corrected Calcium 8.9 Phosphorus 3.5 Magnesium 2.0 Total Bilirubin 0.3 AST 22 ALT 9 L Alkaline Phosphatase 91 Total Protein 6.2 Albumin 4.0 Globulin 2.2 L Albumin/Globulin Ratio 1.8 Assessment & Plan A&P Narrative 1. History of early-stage right breast CA treated with bilateral mastectomy taking letrozole for receptor positive cancer since. 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 2. Lung biopsy performed 12/23/24 confirms malignancy consistent with breast primary. Triple negative for ER/NH and HER2/claudio. PD-L1 was requested for possible benefit of immunotherapy. 3. Second. focus consistent with metastatic papillary thyroid carcinoma IHC pending for confirmation. Dr. Li [place] [facility] [place]21/[place]25. 1:15 PM. 4. Patient kept euthyroid on 75 to 100 mcg of Synthroid since her surgery. Admitted with considerably elevated TSH, possibly related to the mets, currently on 150 mcg of Synthroid, with lowering of TSH and normalizing free T4. 5. Has weakness and persistent respiratory symptoms. Awaiting SNF placement. Will follow and coordinate the care regarding her oncological status. Time Spent With Patient Time: Total time spent is greater than 50% in coordination of care (as documented) at patient's floor/unit and/or counseling patient:
[2025-01-06] MEDS: ONDANSETRON INJ 2 MG/ML INJ 2 ML 4 MG IVP (20:19)
[2025-01-07] VITALS (20 sets, daily range): BP systolic 128–148; BP diastolic 78–96; PULSE 76–125; RESP 12–43; TEMP 36.1–36.7; O2SAT 83–99
[2025-01-07] MEDS: ALBUTEROL/IPRATROPIUM (Duoneb) RT SOL 3 ML NEBU INH ×5 (00:08→18:33)
[2025-01-07] MEDS: SERTRALINE HCL 25 MG TABLET 50 MG PO (05:53)
--- NOTE | 2025-01-07 06:08 | XR_ITS ---
EXAMINATION: AP chest single view TECHNIQUE: AP portable upright chest single view Date and time: January 07, 2025, 0619 hours, comparison January 03, 2025 INDICATIONS: Increasing tachypnea today. FINDINGS: Again noted extensive bilateral pneumonia ARDS pattern, mild to moderate left pleural fluid There remains a small pneumothorax inferior to the right lung less than 15% Mild enlargement left ventricle Moderate vascular congestion Prominent osteopenia Right axillary and left axillary surgical clips IMPRESSION: Again noted extensive bilateral pneumonia ARDS pattern
[2025-01-07] MEDS: FUROSEMIDE INJ 10 MG/ML VIAL 2 ML 20 MG IVP (06:21)
[2025-01-07 07:00] LABS: Basophils # (Auto) 0.2 Thou/mm3 (0.0-0.2); Basophils % (Auto) 1 % (0-2.5); Eosinophils # (Auto) 3.0 Thou/mm3 (0.0-0.5); Eosinophils % (Auto) 16 % (0-10); Hematocrit 45.7 % (36.0-46.0); Hemoglobin 14.7 g/dL (12.0-16.0); Immature Granulocytes Auto 0.18 Thou/mm3 (0.00-0.00); Lymphocytes # (Auto) 0.7 Thou/mm3 (1.0-4.8); Lymphocytes % (Auto) 4 % (10-50); Mean Corpuscular HGB Conc 32.2 g/dl (31.0-37.0); Mean Corpuscular Hemoglobin 28.9 pg (25.0-35.0); Mean Corpuscular Volume 90 fL (80-100); Monocytes # (Auto) 1.4 Thou/mm3 (0.0-0.8); Monocytes % (Auto) 7 % (0-12); Neutrophils # (Auto) 13.4 Thou/mm3 (1.8-7.7); Neutrophils % (Auto) 71 % (37-80); Nucleated Red Blood Cell # 0.00 Thou/mm3 (0.00-0.00); Nucleated Red Blood Cell % 0 /100 WBC (0); Platelet Count 472 Thou/mm3 (140-440); RDW Standard Deviation 46.8 fL (36.4-46.3); Red Blood Count 5.09 Miln/mm3 (4.00-5.20); White Blood Count 18.8 Thou/mm3 (3.6-11.0)
[2025-01-07 07:28] LABS: Alanine Aminotransferase 9 U/L (10-49); Albumin, Serum 4.1 gm/dL (3.4-4.8); Albumin/Globulin Ratio 1.9 (1.2-2.2); Alkaline Phosphatase 96 U/L (46-116); Anion Gap 12 (7-16); Aspartate Amino Transferase 16 U/L (0-34); BUN/Creatinine Ratio 9 Ratio (12-20); Bilirubin,Total 0.4 mg/dL (0.3-1.2); Blood Urea Nitrogen 6 mg/dL (9-23); Calcium 9.0 mg/dL (8.3-10.6); Calcium (Corrected) 9.0 mg/dL (8.5-10.1); Carbon Dioxide 27.3 mMol/L (20.0-31.0); Chloride 97 mMol/L (98-107); Creatinine (Component) 0.7 mg/dL (0.6-1.3); Estimated Creatinine Clearance 88.4 mL/min (>60); Globulin 2.2 gm/dL (2.3-3.5); Glucose 118 mg/dL (74-106); Magnesium 1.8 mg/dL (1.6-2.6); Osmolality,Calculated 270 (275-295); Phosphorous 3.6 mg/dL (2.4-5.1); Potassium 4.0 mMol/L (3.4-5.1); Sodium 136 mMol/L (136-145); Total Protein 6.3 gm/dL (5.7-8.2); eGFR > 60 See Note
[2025-01-07] MEDS: guaiFENesin/COD SYRUP 5 ML UDC 10 ML PO ×2 (07:51→20:26)
[2025-01-07] MEDS: HYDROcodone/APAP 5/325 TABLET 1 TAB PO ×2 (07:52→20:26)
[2025-01-07 08:15] LABS: INR 1.1 (0.9-1.3); Partial Thromboplastin Time 27.7 Seconds (22.0-36.0); Prothrombin Time 11.2 Seconds (9.0-12.2)
--- NOTE | 2025-01-07 09:07 | PC.SS ---
Follow up note: Pt is on high flow O2, 35 liters. Wean down O2. SS spoke to Yamile from [facility] who explained she is working on insurance authorization. Pt is still waiting for PlureX drain to be placed.
--- NOTE | 2025-01-07 12:12 | ECHO_ITS ---
Patient Info Name: Linda Andrew Age: 64 years : 1960 Gender: Female Ht: 180 cm Wt: 82 kg BSA: 2.03 m2 BP: 136 / 93 mmHg Exam Date: 01/07/2025 3:43 PM Admit Date: 12/23/2024 Site: [facility] Room Number: [id number] Patient Status: I Technical Quality: Poor Exam Type: CA echo doppler complete Reason for Poor Study: poor echocardiographic windows, body habitus Charge Account Authorizer: Wendy Wetzel Ordering Physician: Noé Henry Study Info Indications recurrent desats and hemodynamic instability. - Primary Location: S2NX Left Ventricular Outflow Tract Name Value Normal LVOT 2D LVOT Diameter 1.9 cm LVOT Doppler LVOT Peak Velocity 75 cm/s LVOT Mean Gradient 1 mmHg LVOT VTI 13 cm LVOT VTI/AV VTI Ratio 0.8 LVOT Stroke Volume 36 ml Pulmonic Valve Name Value Normal PV Doppler PV Peak Velocity 110 cm/s Mitral Valve Name Value Normal MV Doppler MV Decel [place] 318 cm/s2 MV PHT 46 ms MV Area (PHT) 4.8 cm2 4.0-5.0 MV Diastolic Function MV E Peak Velocity 50 cm/s MV A Peak Velocity 54 cm/s MV E/A 0.9 MV Annular TDI MV Septal e' Velocity 7.2 cm/s MV E/e' (Septal) 7.0 MV Lateral e' Velocity 7.7 cm/s MV E/e' (Lateral) 6.5 MV e' Average 7.45 cm/s MV E/e' (Average) 6.8 Tricuspid Valve Name Value Normal TV Regurgitation Doppler TR Peak Velocity 174 cm/s Estimated PAP/RSVP RA Pressure 8 mmHg <=5 PA Systolic Pressure 20 mmHg <36 RV Systolic Pressure 20 mmHg <36 Aortic Valve Name Value Normal AV 2D/MM AV Cusp Sep (MM) 1.4 cm AV Doppler AV Peak Velocity 120 cm/s AV Mean Gradient 4 mmHg AV VTI 17 cm AV Area (Cont Eq VTI) 2.2 cm2 >=3.0 AV Area (Cont Eq Leno) 1.8 cm2 AV DI (Leno) 0.63 AV Regurgitation 2D LVOT Area 2.8 cm2 Ventricles Name Value Normal LV Dimensions 2D/MM IVS Diastolic Thickness (2D) 0.8 cm 0.6-0.9 LVID Diastole (2D) 3.6 cm 3.8-5.2 LVIW Diastolic Thickness (2D) 0.8 cm 0.6-0.9 LVID Systole (2D) 2.8 cm 2.2-3.5 LVOT Diameter 1.9 cm LV Mass (2D Cubed) 78.77 g 67.00-162.00 LV Mass Index (2D Cubed) 39 g/m2 43-95 Relative Wall Thickness (2D) 0.44 <=0.42 IVS/LVIW Diastolic Thickness (2D) 1.00 0.00-1.50 LV Fractional Shortening/Ejection Fraction 2D/MM LV Fractional Shortening (2D) 22 % 27-45 LV EF (2D Teichholz) 46 % Left Ventricle Left ventricular chamber dimension is normal. Left ventricular systolic function is normal with visually estimated ejection fraction of 55-60%. There is concentric remodeling noted in the left ventricle. Left ventricular segmental wall motion is normal. There is indeterminate diastolic function in the left ventricle. Right Ventricle Right ventricular chamber dimension is normal. Right ventricular systolic function is normal. Left Atrium Left atrial chamber dimension is normal. Right Atrium Right atrial chamber dimension is normal. Aortic Valve The aortic valve is trileaflet. There is mild aortic valve sclerosis. There is no aortic valve stenosis with a peak velocity of 120 cm/s, mean gradient of 4 mmHg, and aortic valve area of 2.2 cm2. There is no aortic valve regurgitation. Pulmonic Valve The pulmonic valve is normal. There is no pulmonic valve stenosis. There is no pulmonic regurgitation. Mitral Valve The mitral valve has calcified leaflets. There is no mitral valve stenosis. There is trace mitral valve regurgitation. Tricuspid Valve The tricuspid valve leaflets are normal. There is no tricuspid valve stenosis. There is trace tricuspid valve regurgitation. No pulmonary hypertension, estimated pulmonary arterial systolic pressure is 20 mmHg and systemic blood pressure of 136 mmHg in systole. Pericardium/Pleural The pericardium appears normal. There is trivial pericardial effusion with no tamponade. No pleural effusion visualized. Inferior Vena Cava Not well visualized inferior vena cava with >50% collapse upon inspiration consistent with normal right atrial pressure, 8 mmHg. Aorta The aortic measurements are indexed to age and body surface area. The aortic root at the sinus of Valsalva is not well visualized. The prox ascending aorta is not well visualized. Summary 1. Left ventricle size is normal and systolic function is normal . Estimated ejection fraction is -55-60%. There is indeterminate diastolic function. 2. Right ventricle chamber size is normal and systolic function is normal. Estimated RVSP is 20 mmHg. 3. There is mild aortic valve sclerosis with no stenosis and no regurgitation. 4. There is trace mitral valve regurgitation. 5. There is trace tricuspid valve regurgitation. 6. Not well visualized IVC with estimated RA pressure 8 mmHg. 7. There is trivial pericardial effusion with no tamponade. Report Signatures Finalized by Evaristo Ellsworth on 01/07/2025 05:06 PM
[2025-01-07] MEDS: guaiFENesin/COD SYRUP 5 ML UDC PO (12:19)
--- NOTE | 2025-01-07 13:03 | XR_ITS ---
EXAMINATION: AP chest single view TECHNIQUE: AP portable upright chest single view Date and time: January 07, 2025, 1314 hours, comparison January 07, 2025 FINDINGS: Mild enlargement cardiac contour Prominent vascular congestion Minimal left pleural fluid Mild right pleural fluid Axillary surgical clips Severe osteopenia Mild pneumothorax inferior to the right lung and possibly at the right lung apex IMPRESSION: Small right pneumothoraces
[2025-01-07] MEDS: HYDROmorphone INJ 2 MG/ML VIAL 0.5 MG IVP (13:18)
--- NOTE | 2025-01-07 13:21 | PD.RESPROC ---
PROCEDURES: Procedure Date / Time 01/07/25 1240 Procedural Time Out Time out performed: Yes Thoracentesis Indication(s): symptomatic Pleural Effusion Informed consent obtained from: patient Time out done, and the following verified: correct patient, side and site, procedure, patient position and implants and/or equipment Ultrasound used: Yes Procedure location: lt. post pleual space Amount pleural fluid removed (ml): 770 EBL(ml): 0 Procedure comment: The procedure was performed under sterile conditions, with appropriate personal protective equipment, including masks and sterile gloves, worn throughout. The patient underwent a left-sided thoracentesis for evaluation and management of pleural effusion, which was initially assessed with ultrasound. After obtaining informed consent, the patient was positioned upright, and 10cc of lidocaine was administered as local anesthesia along the posterior left chest. A needle was then inserted under sterile technique, and approximately 770cc of serosanguinous pleural fluid was aspirated. The fluid was not sent for analysis as it had already been tested during this hospitalization. The procedure was well-tolerated without complications such as pneumothorax or bleeding. The puncture site was dressed, and the patient was monitored for 30 minutes. A post-procedure chest X-ray was obtained to rule out pneumothorax. Procedure performed under the direct supervision of locomotive switch operator Dr. Sandrita Ramirez MD Internal Medicine Resident PGY 2 Attending Note I was present for the entire procedure and available to assist
--- NOTE | 2025-01-07 13:58 | EVENTNT_ITS ---
<Statement entered by Nasreen Ramirez MD - 01/07/25 19:40> Patient was seen and examined at bedside. I agree on the assessment and plan on this note as documented by resident Noé Henry DO PGY1. Case discussed with attending Dr. Wiley Ramirez MD PGY-2 Documentation for date of: 01/07/25 Event Note Event Note: Rapid event called at 11:45am 01/07/2025 for patient Linda Andrew for low O2 saturation. Patient O2 saturation was down to 83% on high flow nasal cannula (HFNC) at flow 20 L and FiO2 35%. Patient was seating upright at the bedside, was anxious with shortness of breath. Increased flow to 40 L and 55% FiO2 increased to 99% oxygen saturation. After few minutes decreased flow to 20 L and 30% FiO2 and patient was able to maintain 97% O2 saturation. It was likely that patient tried to lie down on bed that caused acute desaturation of oxygen. For her stability, increased the flow to 35 L and 30% FiO2. Was given Guanifenesin/codeine 5ml PO x1. ECHO stat has been ordered. After stabilization of patient's O2 saturation. Patient received thoracocentesis of the left lung draining about 770 cc of output. Patient was given breathing treatment and IV hydromorphone 0.5 mg x 1. Patient's latest O2 saturation was 98% O2 sat on HFNC flow rate 40 L and FiO2 40%. Assessment and plan discussed with my attending physician Dr. Rosales and Dr. Ramirez (PGY-2) Dr. Henry (PGY-1) - Internal medicine resident
--- NOTE | 2025-01-07 14:01 | ESCONSULT_ITS ---
HPI Data of Consult Requesting Physician: Wiley Rosales MD Admitting Provider: Varsha Caldwell MD Attending Provider: Wiley Rosales MD Primary Care Provider: Trevor Suggs MD Consult Narrative Reason for consult: Tavhypnea, increased WOB History of present illness: Mrs. Andrew is a 64-year-old female past medical significant of asthma, breast cancer s/p mastectomy 2017, thyroid cancer s/p thyroidectomy 2021 and radiation therapy, recently admitted for acute hypoxic respiratory failure secondary to right large pleural effusion discharged 11/20 admitted on 12/23/2024 with a chief complaint of bilateral pleural effusion causing acute hypoxic respiratory failure. Patient has had a prolonged hospital course for 15 days, over the course of hospitalization pulmonology was consulted, patient had a chest tube placed 12/24/2024, fluid cytology for this effusion was positive for malignancy. With the chest tube patient continued to have significant output over 7 days, pulmonology on 12/31 recommended PleurX catheter placement, patient not a candidate for successful chemical pleurodesis due to rapid accumulation of fluid. Chest tube was removed on 01/01/2025 due to leakage around the tube. Post chest tube removal patient was recommended to get PleurX catheter placement, patient had multiple lung ultrasound done by interventional radiology, IR reported on 01/04 not enough fluid for PleurX catheter placement. Otherwise for the hospitalization patient had left lung biopsy done by interventional radiology, oncology following case. Patient's TSH was significantly elevated, endocrinology consult was done curbside patient received IV levothyroxine and is currently on levothyroxine 137 mcg which was uptitrated to 150 mcg by oncology. Electric Operator team consulted today as patient had increased work of breathing overnight, was given Lasix 20 mg by ICU resident overnight. Rapid response called this morning at 1145, for acute SpO2 change less than 85%, patient sitting at edge of bed in significant discomfort with increased work of breathing and accessory muscle usage. Primary team discussed regarding thoracentesis evaluation, patient on high flow nasal cannula. 01/07/2025: Patient sitting at edge of bed, speaks in short sentences, unable to hold conversation, complains of respiratory distress, complaining of upper abdominal/lower chest pain, patient noted to be tachypneic with accessory muscle usage. 2+ bilateral lower extremity edema noted, bedside ultrasound assessment shows significant effusion left lung. Patient received thoracentesis, please see op report for details. Will recommend Lasix 40 mg IV x 1, down titrate high flow nasal cannula as tolerated. Postprocedure chest x-ray does show good reexpansion of left lung, fluid noted in right lung fissure. cc:: cc: Wiley Rosales MD Review of Systems Review of Systems Systems Reviewed: All systems reviewed, normal except as documented Past Medical History Past Medical History Comments PMH COMMENT: Past medical history significant for breast and thyroid cancer, right hydropneumothorax with previous cytology in October showing malignant cells consistent with spread of her breast cancer, no significant surgical history No significant family history pertinent to acute presentation. No significant social history at this time. Exam Vital Signs Temp Pulse Resp BP Pulse Ox O2 Del Method O2 Flow Rate 98.1 F 125 H 25 H 136/93 H 98 High Flow Nasal Cannula 40 01/07/25 12:01 01/07/25 13:17 01/07/25 13:17 01/07/25 12:01 01/07/25 13:17 01/07/25 12:00 01/07/25 13:17 FiO2 40 01/07/25 13:17 Narrative Exam Physical Exam General: Awake and in moderate to severe acute distress. Speaks in short sentences, alert and oriented. HEENT: Normocephalic, atraumatic, mucous membranes moist. High flow nasal cannula noted. Heart: Sinus tachycardia, no murmurs. Lungs: Decreased breath sounds bilateral lower lung, mild crackles right midlung. Abdomen: Soft, nondistended, nontender, positive bowel sounds. ?No guarding or rebound tenderness. Neurologic: Alert and oriented x3, GCS 15, no gross neurological deficit, and patient able to move all 4 extremities. Extremities: 2+ bilateral lower extremity pitting edema. Skin: No rash or ecchymoses. Suture from chest tube removal noted left back. Results Labs 01/08/25 08:36 01/08/25 08:36 Labs: Short CBC 01/07/25 Range/Units 06:37 WBC 18.8 H (3.6-11.0) Thou/mm3 Hgb 14.7 (12.0-16.0) g/dL Hct 45.7 (36.0-46.0) % Plt Count 472 H (140-440) Thou/mm3 BMP 01/07/25 06:37 Sodium 136 Potassium 4.0 D Chloride 97 L Carbon Dioxide 27.3 BUN 6 L Creatinine 0.7 Glucose 118 H Calcium 9.0 Liver Function 01/07/25 Range/Units 06:37 Total Bilirubin 0.4 (0.3-1.2) mg/dL AST 16 (0-34) U/L ALT 9 L (10-49) U/L Alkaline Phosphatase 96 (46-116) U/L Albumin 4.1 (3.4-4.8) gm/dL Quality Measures Quality Measures VTE prophylaxis Advance care planning discussed with:: patient Medications Home Medications and Allergies Home Medications ?Medication ?Instructions ?Recorded ?Confirmed ?Type Fluticasone/Vilanterol (Breo 1 ea IH QDAY Asthma #0 ea 02/02/17 12/23/24 History Ellipta 100-25 Mcg INH) letrozole 2.5 mg tablet 2.5 mg PO .am 01/21/2112/23 History Held on 01/05/25. Instructions: Resume on 01/12/25. Follow up with Oncology sertraline 50 mg tablet 50 mg PO HS 01/21/21 5 History albuterol sulfate 90 mcg/actuation 1 puff inhalation P RN PRN 11/07/24 12/23/24 History aerosol inhaler shortness of breath or wheez ing Allergies Allergy/AdvReac Type Severity Reaction Status Date / Time Sulfa (Sulfonamide Allergy Severe Rash Verified 12/26/24 02:45 Antibiotics) tramadol Allergy Severe RASH, SOB Verified 12/26/24 02:45 adhesive tape Allergy Mild Rash Verified 12/26/24 02:45 Visit Medications Acetaminophen (Acetaminophen 325 Mg Tablet) 650 mg PO Q6H PRN PRN Reason: Fever >100.4 or pain 1-3 Stop: 01/22/25 05:48 Hydrocodone Bitart/Acetaminophen (Hydrocodone/Apap 5/325 Tablet) 1 tab PO Q4HR PRN PRN Reason: Pain 7-10 Stop: 01/09/25 02:24 Last Admin: 01/07/25 07:52 Dose: 1 tab Hydrocodone Bitart/Acetaminophen (Hydrocodone/Apap 5/325 Tablet) 1 tab PO HS [facility] Stop: 01/08/25 20:59 Last Admin: 01/06/25 20:13 Dose: 1 tab Albuterol/Ipratropium (Albuterol/Ipratropium (Duoneb) Rt Zo 3 Ml Nebu) 3 ml INH Q6HRRT [facility] Stop: 01/22/25 06:59 Last Admin: 01/07/25 13:16 Dose: 3 ml Albuterol/Ipratropium (Albuterol/Ipratropium (Duoneb) Rt Zo 3 Ml Nebu) 3 ml INH Q2HR PRN PRN Reason: SHORTNESS OF BREATH OR WHEEZE Stop: 01/29/25 03:45 Last Admin: 01/07/25 04:42 Dose: 3 ml Docusate Sodium (Docusate Sod 100 Mg Capsule) 100 mg PO QDAY [facility]; Protocol Stop: 01/22/25 08:59 Last Admin: 01/07/25 08:38 Dose: Not Given Guaifenesin/Codeine Phosphate (Guaifenesin/Cod Syrup 5 Ml Udc) 10 ml PO Q4HR PRN; Protocol PRN Reason: COUGH Stop: 02/01/25 16:21 Last Admin: 01/07/25 07:51 Dose: 10 ml Heparin Sodium (Porcine) (Heparin Sod Inj 5000 Unit/Ml Vial) 5,000 unit SC Q12HR [facility] On Hold: 01/06/25 18:31 Stop: 01/08/25 20:59 Last Admin: 01/06/25 09:40 Dose: 5,000 unit Magnesium Sulfate (Magnesium Sulfate Ivpb) 2 gm in 50 mls @ 25 mls/hr IV X1 ONE Stop: 01/07/25 15:35 Levothyroxine Sodium 125 mcg/ (Levothyroxine Sodium 25 mcg) 150 mcg PO ACBR [facility] Stop: 02/05/25 05:59 Last Admin: 01/07/25 06:02 Dose: Not Given Metoclopramide HCl (Metoclopramide Inj 5 Mg/Ml Vial 2 Ml) 5 mg IVP Q8HR PRN; Protocol PRN Reason: NAUSEA OR VOMITING Stop: 02/02/25 13:59 Last Admin: 01/05/25 22:46 Dose: 5 mg Ondansetron HCl (Ondansetron Inj 2 Mg/Ml Inj 2 Ml) 4 mg IVP Q6HR PRN; Protocol PRN Reason: NAUSEA OR VOMITING Stop: 01/24/25 21:55 Last Admin: 01/06/25 20:19 Dose: 4 mg Pantoprazole Sodium (Pantoprazole 40 Mg Tablet) 40 mg PO QDAY [facility]; Protocol Stop: 02/02/25 08:59 Last Admin: 01/07/25 08:38 Dose: Not Given Polyethylene Glycol (Polyethylene Glycol 17 Gm Packet) 17 gm PO QDAY [facility] Stop: 02/05/25 08:59 Last Admin: 01/07/25 08:38 Dose: Not Given Scopolamine (Scopolamine 1 Mg Tdsy) 1 mg TOP Q3D [facility] Stop: 02/03/25 13:29 Last Admin: 01/04/25 13:36 Dose: 1 mg Sertraline HCl (Sertraline Hcl 25 Mg Tablet) 50 mg PO QDAY [facility] Stop: 01/22/25 08:59 Last Admin: 01/07/25 05:53 Dose: 50 mg Discontinued Medications Hydrocodone Bitart/Acetaminophen (Hydrocodone/Apap 10/325 Tab) 1 tab PO Q4H PRN PRN Reason: PAIN SCALE 4-6 (Moderate Stop: 12/28/24 05:53 Last Admin: 12/28/24 01:58 Dose: 1 tab Hydrocodone Bitart/Acetaminophen (Hydrocodone/Apap 5/325 Tablet) 1 tab PO Q4HR PRN PRN Reason: Pain 7-10 Stop: 01/02/25 06:05 Last Admin: 12/29/24 23:54 Dose: 1 tab Acetylcysteine (Acetylcysteine Rt Zo 10% 4 Ml Nebu) 3 ml INH Q4HRRT [facility] Stop: 01/05/25 22:59 Albuterol/Ipratropium (Albuterol/Ipratropium (Duoneb) Rt Zo 3 Ml Nebu) 3 ml INH X1 ONE Stop: 12/23/24 01:40 PST Last Admin: 12/23/24 01:23 PST Dose: 3 ml Albuterol/Ipratropium (Albuterol/Ipratropium (Duoneb) Rt Zo 3 Ml Nebu) 3 ml INH Q6HR [facility] Stop: 01/22/25 06:14 Last Admin: 12/23/24 06:42 Dose: Not Given Albuterol/Ipratropium (Albuterol/Ipratropium (Duoneb) Rt Zo 3 Ml Nebu) 3 ml INH X1 ONE Stop: 12/29/24 10:49 Last Admin: 12/29/24 11:08 Dose: 3 ml Albuterol/Ipratropium (Albuterol/Ipratropium (Duoneb) Rt Zo 3 Ml Nebu) 3 ml INH X1 ONE Stop: 12/29/24 20:24 Last Admin: 12/29/24 20:45 Dose: 3 ml Benzonatate (Benzonatate 100 Mg Capsule) 100 mg PO Q8HR PRN; Protocol PRN Reason: COUGH Stop: 01/25/25 18:32 Last Admin: 12/30/24 06:14 Dose: 100 mg Benzonatate (Benzonatate 100 Mg Capsule) 100 mg PO Q8HR [facility]; Protocol Stop: 01/29/25 10:59 Last Admin: 12/31/24 13:41 Dose: 100 mg Benzonatate (Benzonatate 100 Mg Capsule) 100 mg PO Q6HR [facility]; Protocol Stop: 01/30/25 20:14 Last Admin: 01/02/25 11:56 Dose: 100 mg Fentanyl Citrate (Fentanyl Cit Inj 50 Mcg/Ml Amp 2ml) 50 mcg IVP X1 ONE Stop: 12/27/24 14:47 Last Admin: 12/27/24 14:48 Dose: 50 mcg Furosemide (Furosemide Inj 10 Mg/Ml Vial 2 Ml) 20 mg IVP X1 ONE Stop: 12/30/24 10:29 Last Admin: 12/30/24 11:27 Dose: 20 mg Furosemide (Furosemide Inj 10 Mg/Ml Vial 2 Ml) 20 mg IVP X1 ONE Stop: 01/07/25 06:12 Last Admin: 01/07/25 06:21 Dose: 20 mg Guaifenesin (Guaifenesin Syrup 200 Mg/10 Ml Udc) 100 mg PO QID PRN; Protocol PRN Reason: COUGH Stop: 01/26/25 22:19 Last Admin: 12/29/24 05:40 Dose: 100 mg Guaifenesin/Codeine Phosphate (Guaifenesin/Cod Syrup 5 Ml Udc) 5 ml PO X1 ONE; Protocol Stop: 01/07/25 11:58 Last Admin: 01/07/25 12:19 Dose: 5 ml Heparin Sodium (Porcine) (Heparin Sod Inj 5000 Unit/Ml Vial) 5,000 unit SC Q8HR [facility] Stop: 01/06/25 21:59 Last Admin: 12/25/24 05:02 Dose: 5,000 unit Hydromorphone HCl (Hydromorphone Inj 2 Mg/Ml Vial) 0.25 mg IVP X1 ONE Stop: 12/24/24 19:07 Last Admin: 12/24/24 19:28 Dose: 0.25 mg Hydromorphone HCl (Hydromorphone Inj 2 Mg/Ml Vial) 0.5 mg IVP Q4HR PRN PRN Reason: PAIN SCALE 7-10 (Severe Stop: 12/29/24 19:05 Last Admin: 12/25/24 16:23 Dose: 0.5 mg Hydromorphone HCl (Hydromorphone Inj 2 Mg/Ml Vial) 0.5 mg IVP Q4HR PRN; Protocol PRN Reason: BREAKTHROUGH PAIN Stop: 12/29/24 19:05 Hydromorphone HCl (Hydromorphone Inj 2 Mg/Ml Vial) 0.5 mg IVP X1 ONE Stop: 01/07/25 13:07 Last Admin: 01/07/25 13:18 Dose: 0.5 mg Piperacillin/Tazobactam/Dextrose (Zosyn) 3.375 gm in 50 mls @ 12.5 mls/hr IV Q8HR [facility]; Protocol Stop: 12/31/24 21:59 Last Admin: 12/25/24 05:02 Dose: 12.5 mls/hr Doxycycline Hyclate 100 mg/ (Sodium Chloride) 100 mls @ 100 mls/hr IV BID [facility] Stop: 12/31/24 20:59 Last Admin: 12/25/24 09:19 Dose: 100 mls/hr Piperacillin Sod/Tazobactam (Sod 4.5 gm/ Sodium Chloride) 100 mls @ 200 mls/hr IV X1 ONE; Protocol Stop: 12/24/24 11:59 Last Admin: 12/24/24 12:23 Dose: 200 mls/hr Ceftriaxone Sodium/Dextrose (Rocephin/D5w 1gm Iv Premix) 1 gm in 50 mls @ 100 mls/hr IV QDAY [facility] Stop: 12/29/24 11:39 Last Admin: 12/29/24 08:41 Dose: 100 mls/hr Magnesium Sulfate (Magnesium Sulfate Ivpb) 2 gm in 50 mls @ 25 mls/hr IV X1 ONE Stop: 12/26/24 10:34 Last Admin: 12/26/24 09:59 Dose: 25 mls/hr Potassium Chloride (Kcl Ivpb) 10 meq in 100 mls @ 100 mls/hr IV Q1H [facility] Stop: 12/31/24 15:44 Last Admin: 12/31/24 19:45 Dose: 25 mls/hr Magnesium Sulfate (Magnesium Sulfate Ivpb) 2 gm in 50 mls @ 25 mls/hr IV X1 ONE Stop: 12/31/24 13:44 Last Admin: 12/31/24 12:42 Dose: 25 mls/hr Magnesium Sulfate (Magnesium Sulfate Ivpb) 2 gm in 50 mls @ 25 mls/hr IV X1 ONE Stop: 01/01/25 11:12 Last Admin: 01/01/25 10:20 Dose: 25 mls/hr Lactulose (Lactulose Syrup 20 Gm/30 Ml Udc) 20 gm PO X1 ONE; Protocol Stop: 01/01/25 17:19 Last Admin: 01/01/25 17:31 Dose: 20 gm Levothyroxine Sodium (Levothyroxine Sodium 100 Mcg Tablet) 100 mcg PO ACBR [facility] Stop: 01/24/25 05:59 Last Admin: 01/03/25 05:09 Dose: 100 mcg Levothyroxine Sodium (Levothyroxine Sodium 125 Mcg Tablet) 125 mcg PO ACBR [facility] Stop: 02/03/25 05:59 Levothyroxine Sodium (Levothyroxine Sodium 25 Mcg Tablet) 50 mcg PO X1 ONE Stop: 01/03/25 15:28 Last Admin: 01/03/25 15:59 Dose: 50 mcg Levothyroxine Sodium (Levothyroxine Inj 100 Mcg Vial) 125 mcg IV X1 ONE Stop: 01/04/25 06:01 Last Admin: 01/04/25 05:45 Dose: 125 mcg Levothyroxine Sodium 112 mcg/ (Levothyroxine Sodium 25 mcg) 137 mcg PO ACBR [facility] Stop: 02/04/25 05:59 Last Admin: 01/05/25 06:17 Dose: 137 mcg Levothyroxine Sodium (Levothyroxine Sodium 125 Mcg Tablet) [address] [facility] Stop: 02/05/25 05:59 Lidocaine (Lidocaine 5% 1 Patch) 1 patch TOP X1 ONE Stop: 12/24/24 17:52 Last Admin: 12/24/24 18:13 Dose: 1 patch Lidocaine HCl (Lidocaine Hcl 1% 20 Ml Vial) 0 ml INFL X1 ONE Stop: 12/24/24 15:31 Last Admin: 12/24/24 16:00 Dose: 20 ml Lidocaine HCl (Lidocaine Inj Pf 1% 30 Ml Vial) 14 ml INFL X1 ONE Stop: 12/27/24 14:47 Last Admin: 12/27/24 14:48 Dose: 14 ml Lidocaine HCl (Lidocaine Hcl 1% 20 Ml Vial) 10 ml INFL X1 ONE Stop: 12/31/24 23:43 Last Admin: 01/01/25 07:17 Dose: Not Given Lidocaine HCl (Lidocaine Hcl 1% 20 Ml Vial) 5 ml INFL X1 ONE Stop: 12/31/24 23:43 Last Admin: 01/01/25 00:00 Dose: 5 ml Magnesium Oxide (Magnesium Oxide 400 Mg Tablet) 400 mg PO X1 ONE Stop: 12/26/24 08:35 Last Admin: 12/26/24 09:59 Dose: 400 mg Magnesium Oxide (Magnesium Oxide 400 Mg Tablet) 400 mg PO X1 ONE Stop: 12/31/24 08:15 Last Admin: 12/31/24 12:30 Dose: Not Given Methylprednisolone Sodium Succinate (Methylprednisolone Sod Succ 62.5 Mg/Ml 2ml Vial) 125 mg IVP X1 ONE Stop: 12/23/24 01:40 PST Last Admin: 12/23/24 01:19 PST Dose: 125 mg Midazolam HCl (Midazolam Inj 1 Mg/Ml Vial 2 Ml) 1 mg IVP X1 ONE Stop: 12/27/24 14:47 Last Admin: 12/27/24 14:47 Dose: 1 mg Morphine Sulfate (Morphine Sulf Inj 4 Mg/Ml Vial) 2 mg IV X1 ONE Stop: 12/23/24 01:41 PST Last Admin: 12/23/24 01:19 PST Dose: 2 mg Morphine Sulfate (Morphine Sulf Inj 4 Mg/Ml Vial) 2 mg IVP Q4HR PRN PRN Reason: PAIN SCALE 7-10 (Severe Stop: 12/28/24 05:53 Morphine Sulfate (Morphine Sulf Inj 4 Mg/Ml Vial) 4 mg IVP X1 ONE Stop: 12/24/24 16:55 Last Admin: 12/24/24 17:06 Dose: 4 mg Morphine Sulfate (Morphine Sulf Inj 4 Mg/Ml Vial) 2 mg IVP X1 ONE Stop: 01/07/25 03:01 Last Admin: 01/07/25 03:00 Dose: Not Given Naloxone HCl (Naloxone Inj 0.4 Mg/Ml Vial) 2 mg IV Q3M PRN PRN Reason: OPIATE REVERSAL Pantoprazole Sodium (Pantoprazole Inj 40 Mg Vial) 40 mg IVP QDAY [facility] Stop: 01/22/25 08:59 Last Admin: 01/02/25 08:50 Dose: 40 mg Potassium Chloride (Potassium Chloride 20 Meq Tabcr) 40 meq PO X1 ONE Stop: 12/26/24 08:35 Last Admin: 12/26/24 09:59 Dose: 40 meq Potassium Chloride (Potassium Chloride 20 Meq Tabcr) 40 meq PO X1 ONE Stop: 12/31/24 08:15 Last Admin: 12/31/24 12:30 Dose: Not Given Potassium Chloride (Potassium Chloride 20 Meq Tabcr) 20 meq PO X1 ONE Stop: 01/02/25 09:23 Last Admin: 01/02/25 09:52 Dose: Not Given Assessment & Plan Plan Mrs. Andrew is a 64-year-old female past medical significant of asthma, breast cancer s/p mastectomy 2017, thyroid cancer s/p thyroidectomy 2021 and radiation therapy, recently admitted for acute hypoxic respiratory failure secondary to right large pleural effusion discharged 11/20 admitted on 12/23/2024 with a chief complaint of bilateral pleural effusion causing acute hypoxic respiratory failure. Patient has had a prolonged hospital course for 15 days, over the course of hospitalization pulmonology was consulted, patient had a chest tube placed 12/24/2024, fluid cytology for this effusion was positive for malignancy. With the chest tube patient continued to have significant output over 7 days, pulmonology on 12/31 recommended PleurX catheter placement, patient not a candidate for successful chemical pleurodesis due to rapid accumulation of fluid. Chest tube was removed on 01/01/2025 due to leakage around the tube. Post chest tube removal patient was recommended to get PleurX catheter placement, patient had multiple lung ultrasound done by interventional radiology, IR reported on 01/04 not enough fluid for PleurX catheter placement. Otherwise for the hospitalization patient had left lung biopsy done by interventional radiology, oncology following case. Patient's TSH was significantly elevated, endocrinology consult was done curbside patient received IV levothyroxine and is currently on levothyroxine 137 mcg which was uptitrated to 150 mcg by oncology. Electric Operator consulted today as patient had increased work of breathing overnight, was given Lasix 20 mg by ICU resident overnight. Rapid response called this morning at 1145, for acute SpO2 change less than 85%, patient sitting at edge of bed in significant discomfort with increased work of breathing and accessory muscle usage. Primary team discussed regarding thoracentesis evaluation, patient on high flow nasal cannula. Neurological Alert & Oriented x3. Cardiology #Bilateral lower extremity edema #Fluid in right fissure and chest x-ray Bilateral lower extremity edema noted on physical exam, does have some crackles however decreased breath sounds at bilateral lungs Chest x-ray postthoracentesis today does show some fluid in the right fissure. Recommendations: - Lasix 40 mg IV - Obtain echocardiogram #Sinus tachycardia Likely secondary to increased work of breathing and tachypnea. Pulmonary #Acute hypoxic respiratory failure #Increased work of breathing, tachypnea #Metastatic malignant pleural effusion, left lung #Left lung pleural effusion #Right trapped lung Patient today has increased work of breathing, tachypneic requiring high flow nasal cannula, bedside ultrasound showed significant pocket. Patient initially had chest tube placed 12/24 which was discontinued 01/01. -Bedside thoracentesis done, see op report for details -Postprocedure chest x-ray shows no pneumothorax on the left side -Wean off high flow nasal cannula as tolerated -Needs outpatient pulmonology follow-up for right trapped lung -Continue breathing treatments #Status post left lung biopsy Biopsy performed inpatient during this admission, pathology shows to metastasis of breast primary and papillary thyroid cancer. Oncology aware, following #Asthma by history -Scheduled breathing treatments, DuoNeb every 6 hours - DuoNebs as needed Gastrointestinal #Dysphagia Complains of mild dysphagia, feeling of food stuck in throat. Likely secondary to respiratory status. Speech therapy was consulted, following -Outpatient follow-up #Constipation Bowel regimen per primary team Renal/Genitourinary #Hyperchloremia #Hyperosmolality Chloride 97 today - Continue to monitor Endocrine #Hypothyroidism #History of thyroid cancer status post thyroidectomy 2022 No current active symptoms of hyperthyroid currently. On admission, TSH 101.7 with free T4: 0.86. On 01/03, TSH>150 with free T4: 0.78. Patient's p.o. levothyroxine 125 mcg has been stopped. -IV levothyroxine 125 mcg x 1 has on 01/04 at 6 AM. - Levothyroxine 150 mcg daily Hematology #Leukocytosis Likely in setting of malignancy, eosinophilia noted. Does have history of asthma, will benefit from ICS Infectious Disease Was treated for CAP this admission, completed treatment Integumentary #Stage III coccyx ulcer, during past admission No current concerns Sandrita Chase MD Attending Provider Attestation/Addendum pt seen and examined with resident team, agree with above. in brief this is a 64yo F with h/o breast ca and metastatic dz. She has b/l pleural effusions and increase in WOB today requiring HFNC. On exam she has b/l LE edema, appears visibly uncomfortable, unable to speak due to SOB, diminished breath sounds, no wheeze, HRRR, abd s/nt/bs+. CXR shows b/l pleural effusion with some vasc congestion. The decision was made to proceed with thoracentesis to reexpand L lung and improve pts WOB. Lasix also recommended along with a fu echo. It is my understanding pt is scheduled for outpt pleurx cath for her recurrent malignant effusion. case d/w team labs, imaging records reviewed ~40min required for eval, exam, review, intervention, discussion and formulation of POC
--- NOTE | 2025-01-07 14:16 | ESPR_ITS ---
<Statement entered by Nasreen Ramirez MD - 01/07/25 19:48> Patient was seen and examined at bedside. I agree on the assessment and plan on this note as documented by resident Dr Noé Henry DO PGY1. 64-year-old female with past medical history as below with a prolonged hospital course of 11 days admitted for bilateral pleural effusions, had a rapid response earlier this morning requiring thoracentesis around 770 cc fluid drained, post procedure x-ray shows good reexpansion of lung no pneumothorax, will start on IV Lasix per shop blacksmith recommendations. Will obtain echocardiogram, will try to wean patient off high flow nasal cannula, continue with breathing treatments. Patient will likely need PleurX catheter placement which can be arranged outpatient, was discussed with primary oncologist who is agreeable to the plan. Case discussed with attending Dr. Wiley Ramirez MD PGY-2 Documentation for date of: 01/07/25 Subjective Subjective Interval history: Rapid event called at 11:45am 01/07/2025 for patient Linda Andrew for low O2 saturation. Patient O2 saturation was down to 83% on high flow nasal cannula (HFNC) at flow 20 L and FiO2 35%. Patient was seating upright at the bedside, was anxious with shortness of breath. Increased flow to 40 L and 55% FiO2 increased to 99% oxygen saturation. After few minutes decreased flow to 20 L and 30% FiO2 and patient was able to maintain 97% O2 saturation. It was likely that patient tried to lie down on bed that caused acute desaturation of oxygen. For her stability, increased the flow to 35 L and 30% FiO2. Was given Guanifenesin/codeine 5ml PO x1. ECHO stat has been ordered. After stabilization of patient's O2 saturation. Patient received thoracentesis of the left lung draining about 770 cc of output. Patient was given breathing treatment and IV hydromorphone 0.5 mg x 1. Patient's latest O2 saturation was 98% O2 sat on HFNC flow rate 40 L and FiO2 40%. CXR after thoracentesis showed reexpanded left lung. Was given IV lasix 40mg x1. Have discussed about the event and patient's status with oncologist, Dr. Flowers, Upon stabilization of patient's vitals, she will be discharged and received PleurX catheter at [facility] and follow-up with Dr. Li at [facility] in [place]. Will try to taper down and discontinue patient's high flow nasal cannula and after ECHO result, patient will be discharged to SNF. Patient will received pleurX catheter outpatient once enough fluid accumulates. Will continue to monitor. Exam Vital Signs Temp Pulse Resp BP Pulse Ox O2 Del Method O2 Flow Rate 98.1 F 125 H 25 H 136/93 H 98 High Flow Nasal Cannula 40 01/07/25 12:01 01/07/25 13:17 01/07/25 13:17 01/07/25 12:01 01/07/25 13:17 01/07/25 12:00 01/07/25 13:17 FiO2 40 01/07/25 13:17 Narrative Exam General: No acute distress, well nourished, AAO x3 Eye: Normal conjunctiva, no scleral icterus HENT: Normocephalic, atraumatic, hearing intact to conversation at normal volume, moist oral mucosa Neck: Supple, non-tender, no JVD, no lymphadenopathy Lungs: Symmetric chest rise, No wheezing, rhonchi, crackles, Decreased breathe sounds in bilateral lung bases. Heart: Peripheral pulses intact bilaterally, Regular Rate and Rhythm. Abdomen: Soft, non-tender, non-distended, no palpable masses Musculoskeletal: Normal range of motion and strength, No cyanosis or edema, No visible joint swelling Skin: Skin is warm, dry, no rashes or lesions. Psychiatric: Cooperative, appropriate mood and affect, Awake and alert, not agitated Neuro: Cranial nerves II-XII grossly intact. Strength 5/5 throughout. Sensations intact to light touch. Objective Labs 01/07/25 06:37 01/07/25 06:37 Labs: Laboratory Results - last 24 hr 01/07/25 06:37 WBC 18.8 H RBC 5.09 Hgb 14.7 Hct 45.7 MCV 90 MCH 28.9 MCHC 32.2 RDW Std Deviation 46.8 H Plt Count 472 H Neut % (Auto) 71 Lymph % (Auto) 4 L [place] % (Auto) 7 Eos % (Auto) 16 H Baso % (Auto) 1 Neut # (Auto) 13.4 H Lymph # (Auto) 0.7 L [place] # (Auto) 1.4 H Eos # (Auto) 3.0 H Baso # (Auto) 0.2 Immature Gran # (Auto) 0.18 H Absolute Nucleated RBC 0.00 Immature Gran % 1 H Nucleated RBC % 0 PT 11.2 INR 1.1 APTT 27.7 Sodium 136 Potassium 4.0 D Chloride 97 L Carbon Dioxide 27.3 Anion Gap 12 BUN 6 L Creatinine 0.7 Estim Creat Clear Calc 88.4 eGFR > 60 BUN/Creatinine Ratio 9 L Glucose 118 H Calculated Osmolality 270 L Calcium 9.0 Corrected Calcium 9.0 Phosphorus 3.6 Magnesium 1.8 Total Bilirubin 0.4 AST 16 ALT 9 L Alkaline Phosphatase 96 Total Protein 6.3 Albumin 4.1 Globulin 2.2 L Albumin/Globulin Ratio 1.9 Quality Measures Quality Measures VTE prophylaxis Advance care planning discussed with:: patient and other Assessment & Plan Assessment Current Active Medications: Generic Name Dose Route Start Last Admin Trade Name Freq PRN Reason Stop Dose Admin Acetaminophen 650 mg 12/23/24 05:49 Acetaminophen 325 Mg Tablet PO 01/22/25 05:48 Q6H PRN Fever >100.4 or pain 1-3 Hydrocodone Bitart/Acetaminophen 1 tab 12/30/24 02:25 01/07/25 07:52 Hydrocodone/Apap 5/325 Tablet PO 01/09/25 02:24 1 tab Q4HR PRN Administration Pain 7-10 Hydrocodone Bitart/Acetaminophen 1 tab 12/30/24 21:00 01/06/25 20:13 Hydrocodone/Apap 5/325 Tablet PO 01/08/25 20:59 1 tab HS CHAPARRO Administration Albuterol/Ipratropium 3 ml 12/23/24 07:00 01/07/25 13:16 Albuterol/Ipratropium (Duoneb) Rt Zo 3 Ml Nebu INH 01/22/25 06:59 3 ml Q6HRRT CHAPARRO Administration Albuterol/Ipratropium 3 ml 12/30/24 03:46 01/07/25 04:42 Albuterol/Ipratropium (Duoneb) Rt Zo 3 Ml Nebu INH 01/29/25 03:45 3 ml Q2HR PRN Administration SHORTNESS OF BREATH OR WHEEZE Docusate Sodium 100 mg 12/23/24 09:00 01/07/25 08:38 Docusate Sod 100 Mg Capsule PO 01/22/25 08:59 Not Given QDAY CHAPARRO Protocol Guaifenesin/Codeine Phosphate 10 ml 01/02/25 16:22 01/07/25 07:51 Guaifenesin/Cod Syrup 5 Ml Udc PO 02/01/25 16:21 10 ml Q4HR PRN Administration COUGH Protocol Heparin Sodium (Porcine) 5,000 unit 12/25/24 21:00 01/06/25 09:40 Heparin Sod Inj 5000 Unit/Ml Vial SC 01/08/25 20:59 5,000 unit On Hold: 01/06/25 18:31 Q12HR CHAPARRO Administration Magnesium Sulfate 2 gm in 50 mls @ 25 mls/hr 01/07/25 13:36 Magnesium Sulfate Ivpb IV 01/07/25 15:35 X1 ONE Levothyroxine Sodium 125 mcg/ 150 mcg 01/06/25 06:00 01/07/25 06:02 Levothyroxine Sodium 25 mcg PO 02/05/25 05:59 Not Given ACBR CHAPARRO Metoclopramide HCl 5 mg 01/03/25 10:40 01/05/25 22:46 Metoclopramide Inj 5 Mg/Ml Vial 2 Ml IVP 02/02/25 13:59 5 mg Q8HR PRN Administration NAUSEA OR VOMITING Protocol Ondansetron HCl 4 mg 12/25/24 21:56 01/06/25 20:19 Ondansetron Inj 2 Mg/Ml Inj 2 Ml IVP 01/24/25 21:55 4 mg Q6HR PRN Administration NAUSEA OR VOMITING Protocol Pantoprazole Sodium 40 mg 01/03/25 09:00 01/07/25 08:38 Pantoprazole 40 Mg Tablet PO 02/02/25 08:59 Not Given QDAY CHAPARRO Protocol Polyethylene Glycol 17 gm 01/06/25 09:00 01/07/25 08:38 Polyethylene Glycol 17 Gm Packet PO 02/05/25 08:59 Not Given QDAY CHAPARRO Scopolamine 1 mg 01/04/25 13:30 01/04/25 13:36 Scopolamine 1 Mg Tdsy TOP 02/03/25 13:29 1 mg Q3D CHAPARRO Administration Sertraline HCl 50 mg 12/23/24 09:00 01/07/25 05:53 Sertraline Hcl 25 Mg Tablet PO 01/22/25 08:59 50 mg QDAY CHAPARRO Administration Plan Mrs. Andrew is a 64-year-old female past medical significant of asthma, breast cancer s/p mastectomy 2017, thyroid cancer s/p thyroidectomy 2021 and radiation therapy, recently admitted for acute hypoxic respiratory failure secondary to right large pleural effusion discharged 11/20 presenting today 12/23 with similar complaint of SOB. #Acute hypoxic respiratory failure / #Left sided malignant pleural effusion 03/25 #Metastatic breast cancer, stage IV #Chronic Hydropneumothorax right lung, trapped lung #S/P Left Lung Biopsy #Status post chest tube placement 12/24/24, discontinued 01/01/25 #Asthma, by history On initial presentation patient speaking in short sentences oxygen saturation 86% on 5L nasal cannula. Recent admission of similar presentation revealed exudative effusion from malignant metastases. Patient established with oncology outpatient, was transferred out for decortication however no intervention was done because of stage IV breast cancer per patient. -Received Chest tube placement for pleural effusion in left lung (12/24/2024) -12/25: Patient drained a total of 3.7 L. Clear pleural followed, pleural WBC 663, pleural LDH 113, pleural total protein 4.0, pleural glucose 104. Considering, serum LDH 158, serum total protein 6.3, patient has exudative pleural effusion likely secondary to malignancy. -12/26: A total of 410ml has been drained from left percutaneous chest tube. 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 Status post Left upper lobe lung mass pulmonary biopsy (12/27/2024). -Discussed the case with Oncology, Dr. Flowers. Lung biopsy confirms malignancy consistent with breast primary. Prognostic markers including ER/WY receptors and HER2/stevie results are still pending. -Chest tube was removed on 01/01 because it was leaking. -Patient's PET scan has been delayed to January 21, 2025 at 1:45 PM -Patient was unable to get PleurX catheter. Will trend the pleural fluid level. -Per oncology, the biopsy results of the lung showed dual metastasis of breast primary and papillary thyroid carcinoma. Receptors were negative ER/WY, negative HER2/Stevie and negative KI?[id number] 15 to 20% positive. Second focus consistent with metastatic thyroid carcinoma IHC is pending for confirmation. PD-L1 was requested for possible immunotherapy. Her elevated TSH could be related to the metastic cancer problem. -01/07: Patient's O2 saturation decreased to 83%. Received thoracentesis draining ~770cc. CXR after thoracentesis showed reexpanded left lung. Was given IV lasix 40mg x1. Have discussed about the event and patient's status with oncologist, Dr. Flowers , Upon stabilization of patient's vitals, she will be discharged and received PleurX catheter at [facility] and follow-up with Dr. Li at [facility] in [place]. Plan: -Will try to taper down and discontinue patient's high flow nasal cannula and after ECHO result, patient will be discharged to SNF. Patient will received pleurX catheter outpatient once enough fluid accumulates. -Continue DuoNebs q6h, DuoNebs every 2 hours as needed -[place] 5 every 4 hours as needed, [place] 5 at night @2100 -Supplemental O2, titrate as tolerated to maintain SpO2 >93% -Incentive spirometry -Pulmonology consulted, appreciate recommendations. -Oncology consulted, appreciate recommendations #Hypothyroidism #Hx thyroid cancer s/p thyroidectomy 2021 No current active symptoms of hyperthyroid currently. TSH >100 free T4 0.86 Free T3 1.7 Patient's TSH level has been increasing. On admission, TSH 101.7 with free T4: 0.86. On 01/03, TSH>150 with free T4: 0.78. Patient's p.o. levothyroxine 125 mcg has been stopped. IV levothyroxine 125 mcg x 1 has been ordered on 01/04. Will continue to monitor her TSH level. Plan: -Increased levothyroxine dosage to 150 mcg/day. -Outpatient titration of medication #Dysphagia -Sensation of food/medicine not going down, with epigastric chest discomfort on eating. -Difficulty removing phlegm. -Ddx: GERD, stictures, Mets to esophagus. -Swallow eval (01/01/2025): Any large pills should be crushed. Pt is independent in eating/swallowing using compensatory techniques and specific diet selections. No further swallow treatment servives warranted at this time. Plan: -Based on swallow evaluation, outpatient management is recommended. #Hx of pressure injury, coccyx, stage III Patient reports frequent back pain and it was noted that the patient had a possible pressure injury and her coccyx area. Per last admission, the wound staging is stage III without any drainage or order. Plan: -Referral to wound care -Continue to monitor #Depression - Continue home dose sertraline Health Maintenance: Code status: Full code DVT prophylaxis: Heparin every 12 hours GI prophylaxis: Protonix 40mg Diet: Regular diet Mccallum: None Lines: PIV Supplemental O2: Nasal cannula Disposition: Tele Assessment and plan discussed with my attending physician Dr. Rosales and Dr. Ramirez (PGY-2) Dr. Henry (PGY-1) - Internal medicine resident Attending Provider Attestation/Addendum I have seen and examined the patient. I was physically present for the shannon portions of the services provided including history, physical exam, diagnosis, treatment plans and orders. I agree with assessment and plan of care as documented by residents. Patient seen and examined at bedside this morning. Overnight, patient became hypoxic and was started on high flow nasal cannula. She also had a rapid response called this morning due to low oxygen saturation. Patient had oxygen saturation going down up to 83% while laying on bed. At bedside, patient appeared anxious, settings were increased for high flow nasal cannula, 40 L, 55 FiO2 with improvement in oxygenation. Patient also felt more comfortable after sitting down at the edge of the bed but continues to speak in short sentences, appears to be in mild respiratory distress and tachypneic. She also received a dose of guaifenesin/codeine. Discussed with the shop blacksmith, bedside ultrasound was performed, patient underwent thoracentesis with removal of 770 cc of fluid, Ordered Lasix 40 mg x 1. Echocardiography ordered. appreciate help and recommendations. We will try to wean her oxygen down and continue to monitor closely for respiratory status. Even though this this note was carefully revised there may still be minor errors in metal molder due to voice recognition software. Wiley Rosales MD
[2025-01-07] MEDS: Magnesium Sulfate 2 GM Ivpb 2 GM/50 ML BAG IV (14:57)
[2025-01-07] MEDS: SCOPOLAMINE 1 MG TDSY TOP (14:57)
[2025-01-07] MEDS: FUROSEMIDE INJ 10 MG/ML 4ML VIAL 40 MG IVP (14:58)
[2025-01-07] MEDS: ONDANSETRON INJ 2 MG/ML INJ 2 ML 4 MG IVP (20:32)
[2025-01-08] VITALS (13 sets, daily range): BP systolic 112–133; BP diastolic 71–91; PULSE 81–115; RESP 14–96; TEMP 35.9–36.3; O2SAT 88–97
[2025-01-08] MEDS: ALBUTEROL/IPRATROPIUM (Duoneb) RT SOL 3 ML NEBU INH ×5 (01:39→23:15)
[2025-01-08] MEDS: HYDROcodone/APAP 5/325 TABLET 1 TAB PO ×4 (04:16→20:21)
[2025-01-08] MEDS: guaiFENesin/COD SYRUP 5 ML UDC 10 ML PO ×4 (04:16→20:26)
[2025-01-08] MEDS: ONDANSETRON INJ 2 MG/ML INJ 2 ML 4 MG IVP (04:31)
[2025-01-08] MEDS: LEVOTHYROXINE SODIUM 125 MCG, LEVOTHYROXINE SODIUM 25 MCG 150 MCG PO (05:04)
[2025-01-08] MEDS: METOCLOPRAMIDE INJ 5 MG/ML VIAL 2 ML IVP (07:53)
[2025-01-08 09:01] LABS: Basophils # (Auto) 0.2 Thou/mm3 (0.0-0.2); Basophils % (Auto) 1 % (0-2.5); Eosinophils # (Auto) 2.8 Thou/mm3 (0.0-0.5); Eosinophils % (Auto) 15 % (0-10); Hematocrit 43.7 % (36.0-46.0); Hemoglobin 14.5 g/dL (12.0-16.0); Immature Granulocytes Auto 0.18 Thou/mm3 (0.00-0.00); Lymphocytes # (Auto) 0.9 Thou/mm3 (1.0-4.8); Lymphocytes % (Auto) 5 % (10-50); Mean Corpuscular HGB Conc 33.2 g/dl (31.0-37.0); Mean Corpuscular Hemoglobin 29.4 pg (25.0-35.0); Mean Corpuscular Volume 89 fL (80-100); Monocytes # (Auto) 1.6 Thou/mm3 (0.0-0.8); Monocytes % (Auto) 8 % (0-12); Neutrophils # (Auto) 13.4 Thou/mm3 (1.8-7.7); Neutrophils % (Auto) 71 % (37-80); Nucleated Red Blood Cell # 0.00 Thou/mm3 (0.00-0.00); Nucleated Red Blood Cell % 0 /100 WBC (0); Platelet Count 487 Thou/mm3 (140-440); RDW Standard Deviation 45.5 fL (36.4-46.3); Red Blood Count 4.93 Miln/mm3 (4.00-5.20); White Blood Count 19.1 Thou/mm3 (3.6-11.0)
[2025-01-08 09:29] LABS: Alanine Aminotransferase 10 U/L (10-49); Albumin, Serum 3.8 gm/dL (3.4-4.8); Albumin/Globulin Ratio 1.7 (1.2-2.2); Alkaline Phosphatase 96 U/L (46-116); Anion Gap 10 (7-16); Aspartate Amino Transferase 15 U/L (0-34); BUN/Creatinine Ratio 10 Ratio (12-20); Bilirubin,Total 0.4 mg/dL (0.3-1.2); Blood Urea Nitrogen 7 mg/dL (9-23); Calcium 8.9 mg/dL (8.3-10.6); Calcium (Corrected) 9.1 mg/dL (8.5-10.1); Carbon Dioxide 28.5 mMol/L (20.0-31.0); Chloride 96 mMol/L (98-107); Creatinine (Component) 0.7 mg/dL (0.6-1.3); Estimated Creatinine Clearance 88.4 mL/min (>60); Globulin 2.2 gm/dL (2.3-3.5); Glucose 120 mg/dL (74-106); Magnesium 1.8 mg/dL (1.6-2.6); Osmolality,Calculated 267 (275-295); Potassium 3.3 mMol/L (3.4-5.1); Sodium 134 mMol/L (136-145); Total Protein 6.0 gm/dL (5.7-8.2); eGFR > 60 See Note
[2025-01-08] MEDS: PANTOPRAZOLE 40 MG TABLET PO (09:55)
[2025-01-08] MEDS: POLYETHYLENE GLYCOL 17 GM PACKET PO (09:55)
[2025-01-08] MEDS: HEPARIN SOD INJ 5000 UNIT/ML VIAL SC ×2 (09:55→20:20)
[2025-01-08] MEDS: DOCUSATE SOD 100 MG CAPSULE PO (09:55)
[2025-01-08] MEDS: SERTRALINE HCL 25 MG TABLET 50 MG PO (09:55)
[2025-01-08 10:20] LABS: Free T4 (Free Thyroxine) 1.37 ng/dL (0.89-1.76); Thyroid Stimulating Hormone 70.10 uIU/mL (0.55-4.78)
[2025-01-08] MEDS: Magnesium Sulfate 2 GM Ivpb 2 GM/50 ML BAG IV ×2 (11:43→15:55)
[2025-01-08] MEDS: FUROSEMIDE INJ 10 MG/ML 4ML VIAL 40 MG IVP (11:43)
[2025-01-08] MEDS: POTASSIUM CHLORIDE 10% 20 MEQ/15 ML UDC 40 MEQ PO (11:43)
[2025-01-08 11:49] LABS: Carcinoembryonic Antigen 1.5 ng/mL (0.0-5.0)
--- NOTE | 2025-01-08 13:09 | ESPR_ITS ---
Documentation for date of: 01/08/25 Subjective Subjective Interval history: Patient experienced shortness of breath and had rapid response with thoracentesis removing 7 and 70 cc fluid with x-ray showing good reexpansion. Had echo ultrasound which showed adequate ejection fraction, no major pathologies. Sats 95% via high flow nasal cannula. Exam Vital Signs Temp Pulse Resp BP Pulse Ox O2 Del Method O2 Flow Rate 97.1 F 95 20 120/89 H 92 L High Flow Nasal Cannula 18 01/08/25 12:00 01/08/25 12:00 01/08/25 12:00 01/08/25 12:00 01/08/25 12:00 01/08/25 12:00 01/08/25 12:00 FiO2 30 01/08/25 12:00 Narrative Exam Appearing comfortable receiving nasal cannula high flow. Objective Labs 01/08/25 08:36 01/08/25 08:36 Labs: Laboratory Results - last 24 hr 01/08/25 01/08/25 08:36 11:12 WBC 19.1 H RBC 4.93 Hgb 14.5 Hct 43.7 MCV 89 MCH 29.4 MCHC 33.2 RDW Std Deviation 45.5 Plt Count 487 H Neut % (Auto) 71 Lymph % (Auto) 5 L [place] % (Auto) 8 Eos % (Auto) 15 H Baso % (Auto) 1 Neut # (Auto) 13.4 H Lymph # (Auto) 0.9 L [place] # (Auto) 1.6 H Eos # (Auto) 2.8 H Baso # (Auto) 0.2 Immature Gran # (Auto) 0.18 H Absolute Nucleated RBC 0.00 Immature Gran % 1 H Nucleated RBC % 0 Sodium 134 L Potassium 3.3 L D Chloride 96 L Carbon Dioxide 28.5 Anion Gap 10 BUN 7 L Creatinine 0.7 Estim Creat Clear Calc 88.4 eGFR > 60 BUN/Creatinine Ratio 10 L Glucose 120 H Calculated Osmolality 267 L Calcium 8.9 Corrected Calcium 9.1 Magnesium 1.8 Total Bilirubin 0.4 AST 15 ALT 10 Alkaline Phosphatase 96 Total Protein 6.0 Albumin 3.8 Globulin 2.2 L Albumin/Globulin Ratio 1.7 Carcinoembryonic Ag 1.5 TSH 70.10 H* D Free T4 1.37 Assessment & Plan A&P Narrative 1. History of early-stage right breast CA treated with bilateral mastectomy taking letrozole for receptor positive cancer since. 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 2. Lung biopsy performed 12/23/24 confirms malignancy consistent with breast primary. Triple negative for ER/AL and HER2/claudio. PD-L1 was 70 for possible benefit of Keytruda immunotherapy. 3. Second. focus consistent with metastatic papillary thyroid carcinoma IHC pending for confirmation. Dr. Li will be seeing her for follow[place] [facility] [place] with PET scan scheduled there for 01/21/2025. 1:15 PM. I will also arrange to have PleurX catheter placed there and possible port placement as well. 4. Admitted with considerably elevated TSH, possibly related to the mets, currently on 150 mcg of Synthroid, with lowering of TSH and normalizing FT4. Repeat TFTs thyroglobulin breast cancer tumor markers ordered. 5. Has weakness and persistent respiratory symptoms. Awaiting SNF placement. Will follow and coordinate the care regarding her oncological status. Time Spent With Patient Time: Total time spent is greater than 50% in coordination of care (as documented) at patient's floor/unit and/or counseling patient:
--- NOTE | 2025-01-08 14:41 | PC.SS ---
Pt is on high flow O2, 20 liters FIO2 35%. Wean down O2. Felipe Johansen has obtained insurance authorization.
--- NOTE | 2025-01-08 15:25 | ESPR_ITS ---
<Statement entered by Wolf Prather MD - 01/08/25 16:01> Patient seen and examined at bedside. I discussed and supervised with the internal communications intern physician who took care of this patient. I personally saw and examined the patient. I agree with most of the assessment and plan. Weaned down O2 today, will continue to wean down as tolerated, goal to be off of HFNC. Gave additional lasix, repleted electrolytes. Plan of care discussed with attending Dr. Rosales. Wolf Prather MD PGY-2 Documentation for date of: 01/08/25 Subjective Subjective Interval history: Today patient O2 saturation ranged from 88% to 92% on high flow nasal cannula 20 L/min and 30% FiO2. Currently attempting to taper down the oxygen requirement patient to get discharged. Checks x-ray postthoracentesis on 01/07 showed some fluid in the right fissure. Per ICU recommendations, started on IV Lasix 40 mg and ordered echo. Echo(01/07/2025) showed indeterminate diastolic function with ejection fraction 55 to 60% and RVSP 20 mmHg. Today patient showed +1 pitting edema on her bilateral leg. LV and RV size was normal and systolic function was also normal. Again, patient will be discharged to SNF with outpatient PleurX catheter placement at [facility] Exam Vital Signs Temp Pulse Resp BP Pulse Ox O2 Del Method O2 Flow Rate 97.1 F 95 14 120/89 H 97 High Flow Nasal Cannula 20 01/08/25 12:00 01/08/25 13:58 01/08/25 13:58 01/08/25 12:00 01/08/25 13:58 01/08/25 12:00 01/08/25 13:58 FiO2 30 01/08/25 13:58 Narrative Exam General: No acute distress, well nourished, AAO x3 Eye: Normal conjunctiva, no scleral icterus HENT: Normocephalic, atraumatic, hearing intact to conversation at normal volume, moist oral mucosa Neck: Supple, non-tender, no JVD, no lymphadenopathy Lungs: Symmetric chest rise, No wheezing, rhonchi, crackles, Decreased breathe sounds in bilateral lung bases. Heart: Peripheral pulses intact bilaterally, Regular Rate and Rhythm. Abdomen: Soft, non-tender, non-distended, no palpable masses Musculoskeletal: Normal range of motion and strength, +1 pitting edema in BLE. Skin: Skin is warm, dry, no rashes or lesions. Psychiatric: Cooperative, appropriate mood and affect, Awake and alert, not agitated Neuro: Cranial nerves II-XII grossly intact. Strength 5/5 throughout. Sensations intact to light touch. Objective Labs 01/08/25 08:36 01/08/25 08:36 Labs: Laboratory Results - last 24 hr 01/08/25 01/08/25 08:36 11:12 WBC 19.1 H RBC 4.93 Hgb 14.5 Hct 43.7 MCV 89 MCH 29.4 MCHC 33.2 RDW Std Deviation 45.5 Plt Count 487 H Neut % (Auto) 71 Lymph % (Auto) 5 L [place] % (Auto) 8 Eos % (Auto) 15 H Baso % (Auto) 1 Neut # (Auto) 13.4 H Lymph # (Auto) 0.9 L [place] # (Auto) 1.6 H Eos # (Auto) 2.8 H Baso # (Auto) 0.2 Immature Gran # (Auto) 0.18 H Absolute Nucleated RBC 0.00 Immature Gran % 1 H Nucleated RBC % 0 Sodium 134 L Potassium 3.3 L D Chloride 96 L Carbon Dioxide 28.5 Anion Gap 10 BUN 7 L Creatinine 0.7 Estim Creat Clear Calc 88.4 eGFR > 60 BUN/Creatinine Ratio 10 L Glucose 120 H Calculated Osmolality 267 L Calcium 8.9 Corrected Calcium 9.1 Magnesium 1.8 Total Bilirubin 0.4 AST 15 ALT 10 Alkaline Phosphatase 96 Total Protein 6.0 Albumin 3.8 Globulin 2.2 L Albumin/Globulin Ratio 1.7 Carcinoembryonic Ag 1.5 TSH 70.10 H* D Free T4 1.37 Quality Measures Quality Measures VTE prophylaxis Advance care planning discussed with:: patient and other Assessment & Plan Assessment Current Active Medications: Generic Name Dose Route Start Last Admin Trade Name Freq PRN Reason Stop Dose Admin Acetaminophen 650 mg 12/23/24 05:49 Acetaminophen 325 Mg Tablet PO 01/22/25 05:48 Q6H PRN Fever >100.4 or pain 1-3 Hydrocodone Bitart/Acetaminophen 1 tab 12/30/24 02:25 01/08/25 07:46 Hydrocodone/Apap 5/325 Tablet PO 01/14/25 02:24 1 tab Q4HR PRN Administration Pain 7-10 Hydrocodone Bitart/Acetaminophen 1 tab 12/30/24 21:00 01/07/25 20:26 Hydrocodone/Apap 5/325 Tablet PO 01/14/25 20:59 1 tab HS CHAPARRO Administration Albuterol/Ipratropium 3 ml 12/23/24 07:00 01/08/25 13:58 Albuterol/Ipratropium (Duoneb) Rt Zo 3 Ml Nebu INH 01/22/25 06:59 3 ml Q6HRRT CHAPARRO Administration Albuterol/Ipratropium 3 ml 12/30/24 03:46 01/07/25 04:42 Albuterol/Ipratropium (Duoneb) Rt Zo 3 Ml Nebu INH 01/29/25 03:45 3 ml Q2HR PRN Administration SHORTNESS OF BREATH OR WHEEZE Budesonide 0.25 mg 01/08/25 19:00 Budesonide Rt 0.25 Mg/2 Ml Nebu INH 02/07/25 18:59 BIDRT CHAPARRO Docusate Sodium 100 mg 12/23/24 09:00 01/08/25 09:55 Docusate Sod 100 Mg Capsule PO 01/22/25 08:59 100 mg QDAY CHAPARRO Administration Protocol Guaifenesin/Codeine Phosphate 10 ml 01/02/25 16:22 01/08/25 07:46 Guaifenesin/Cod Syrup 5 Ml Udc PO 02/01/25 16:21 10 ml Q4HR PRN Administration COUGH Protocol Heparin Sodium (Porcine) 5,000 unit 12/25/24 21:00 01/08/25 09:55 Heparin Sod Inj 5000 Unit/Ml Vial SC 01/11/25 20:59 5,000 unit Q12HR CHAPARRO Administration Magnesium Sulfate 2 gm in 50 mls @ 25 mls/hr 01/08/25 15:04 Magnesium Sulfate Ivpb IV 01/08/25 17:03 X1 ONE Levothyroxine Sodium 125 mcg/ 150 mcg 01/06/25 06:00 01/08/25 05:04 Levothyroxine Sodium 25 mcg PO 02/05/25 05:59 150 mcg ACBR CHAPARRO Administration Metoclopramide HCl 5 mg 01/03/25 10:40 01/08/25 07:53 Metoclopramide Inj 5 Mg/Ml Vial 2 Ml IVP 02/02/25 13:59 5 mg Q8HR PRN Administration NAUSEA OR VOMITING Protocol Ondansetron HCl 4 mg 12/25/24 21:56 01/08/25 04:31 Ondansetron Inj 2 Mg/Ml Inj 2 Ml IVP 01/24/25 21:55 4 mg Q6HR PRN Administration NAUSEA OR VOMITING Protocol Pantoprazole Sodium 40 mg 01/03/25 09:00 01/08/25 09:55 Pantoprazole 40 Mg Tablet PO 02/02/25 08:59 40 mg QDAY CHAPARRO Administration Protocol Polyethylene Glycol 17 gm 01/06/25 09:00 01/08/25 09:55 Polyethylene Glycol 17 Gm Packet PO 02/05/25 08:59 17 gm QDAY CHAPARRO Administration Scopolamine 1 mg 01/04/25 13:30 01/07/25 14:57 Scopolamine 1 Mg Tdsy TOP 02/03/25 13:29 1 mg Q3D CHAPARRO Administration Sertraline HCl 50 mg 12/23/24 09:00 01/08/25 09:55 Sertraline Hcl 25 Mg Tablet PO 01/22/25 08:59 50 mg QDAY CHAPARRO Administration Plan Mrs. Andrew is a 64-year-old female past medical significant of asthma, breast cancer s/p mastectomy 2017, thyroid cancer s/p thyroidectomy 2021 and radiation therapy, recently admitted for acute hypoxic respiratory failure secondary to right large pleural effusion discharged 11/20 presenting today 12/23 with similar complaint of SOB. #Acute hypoxic respiratory failure /2 #Left sided malignant pleural effusion / #Metastatic breast cancer, stage IV #Chronic Hydropneumothorax right lung, trapped lung #S/P Left Lung Biopsy #Status post chest tube placement 12/24/24, discontinued 01/01/25 #Asthma, by history On initial presentation patient speaking in short sentences oxygen saturation 86% on 5L nasal cannula. Recent admission of similar presentation revealed exudative effusion from malignant metastases. Patient established with oncology outpatient, was transferred out for decortication however no intervention was done because of stage IV breast cancer per patient. 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 Status post Left upper lobe lung mass pulmonary biopsy (12/27/2024). -Discussed the case with Oncology, Dr. Flowers. Lung biopsy confirms malignancy consistent with breast primary. Prognostic markers including ER/MN receptors and HER2/stevie results are still pending. -Chest tube was removed on 01/01 because it was leaking. -Patient's PET scan has been delayed to January 21, 2025 at 1:45 PM -Per oncology, the biopsy results of the lung showed dual metastasis of breast primary and papillary thyroid carcinoma. Receptors were negative ER/MN, negative HER2/Stevie and negative KI?67 15 to 20% positive. Second focus consistent with metastatic thyroid carcinoma IHC is pending for confirmation. PD-L1 was requested for possible immunotherapy. Her elevated TSH could be related to the metastic cancer problem. -01/07: Patient's O2 saturation decreased to 83%. Received thoracentesis draining ~770cc. CXR after thoracentesis showed reexpanded left lung. Was given IV lasix 40mg x1. Have discussed about the event and patient's status with oncologist, Dr. Flowers , Upon stabilization of patient's vitals, she will be discharged and received PleurX catheter at [facility] and follow-up with Dr. Li at [facility] in [place]. -Checks x-ray postthoracentesis on 01/07 showed some fluid in the right fissure. Per ICU recommendations, started on IV Lasix 40 mg and ordered echo. -Echo(01/07/2025) showed indeterminate diastolic function with ejection fraction 55 to 60% and RVSP 20 mmHg. Today patient showed +1 pitting edema on her bilateral leg. LV and RV size was normal and systolic function was also normal. Plan: -Will try to taper down and discontinue patient's high flow nasal cannula and after ECHO result, patient will be discharged to SNF. Patient will received pleurX catheter outpatient once enough fluid accumulates. -Continue DuoNebs q6h, DuoNebs every 2 hours as needed -Orange 5 every 4 hours as needed, Orange 5 at night @2100 -Supplemental O2, titrate as tolerated to maintain SpO2 >93% -Incentive spirometry -Pulmonology consulted, appreciate recommendations. -Oncology consulted, appreciate recommendations #Hypothyroidism #Hx thyroid cancer s/p thyroidectomy 2021 No current active symptoms of hyperthyroid currently. TSH >100 free T4 0.86 Free T3 1.7 Patient's TSH level has been increasing. On admission, TSH 101.7 with free T4: 0.86. On 01/03, TSH>150 with free T4: 0.78. Patient's p.o. levothyroxine 125 mcg has been stopped. IV levothyroxine 125 mcg x 1 has been ordered on 01/04. Will continue to monitor her TSH level. Plan: -Increased levothyroxine dosage to 150 mcg/day. -Outpatient titration of medication #Dysphagia -Sensation of food/medicine not going down, with epigastric chest discomfort on eating. -Difficulty removing phlegm. -Ddx: GERD, stictures, Mets to esophagus. -Swallow eval (01/01/2025): Any large pills should be crushed. Pt is independent in eating/swallowing using compensatory techniques and specific diet selections. No further swallow treatment servives warranted at this time. Plan: -Based on swallow evaluation, outpatient management is recommended. #Hx of pressure injury, coccyx, stage III Patient reports frequent back pain and it was noted that the patient had a possible pressure injury and her coccyx area. Per last admission, the wound staging is stage III without any drainage or order. Plan: -Referral to wound care -Continue to monitor #Depression - Continue home dose sertraline Health Maintenance: Code status: Full code DVT prophylaxis: Heparin every 12 hours GI prophylaxis: Protonix 40mg Diet: Regular diet [place]: None Lines: PIV Supplemental O2: Nasal cannula Disposition: Tele Assessment and plan discussed with my attending physician Dr. Rosales and Dr. Prather (PGY-2) Dr. Henry (PGY-1) - Internal medicine resident Attending Provider Attestation/Addendum I have seen and examined the patient. I was physically present for the shannon portions of the services provided including history, physical exam, diagnosis, treatment plans and orders. I agree with assessment and plan of care as documented by residents. Patient seen and examined at bedside this morning. Appears comfortable and denies any new complaints. Continues to require high flow nasal cannula, currently on 20 L/min and 30 FiO2. We will continue to try to wean her oxygen down. Repleted potassium and magnesium. Echocardiography showed normal left ventricular size and function with ejection fraction of 55 to 60%. Patient continues to have bilateral pedal edema, we will give her additional dose of Lasix. TSH noted to be trending down, currently on 150 of levothyroxine. Even though this this note was carefully revised there may still be minor errors in filter tender due to voice recognition software. Wiley Rosales MD
[2025-01-08] MEDS: BUDESONIDE RT 0.25 MG/2 ML NEBU INH (18:23)
[2025-01-09] VITALS (15 sets, daily range): BP systolic 114–134; BP diastolic 59–81; PULSE 75–94; RESP 12–31; TEMP 36.1–36.5; O2SAT 90–97; BMI 24.9
[2025-01-09] MEDS: HYDROcodone/APAP 5/325 TABLET 1 TAB PO ×4 (04:19→20:55)
[2025-01-09] MEDS: ALBUTEROL/IPRATROPIUM (Duoneb) RT SOL 3 ML NEBU INH ×4 (04:25→18:30)
[2025-01-09 05:07] LABS: Basophils # (Auto) 0.2 Thou/mm3 (0.0-0.2); Basophils % (Auto) 1 % (0-2.5); Eosinophils # (Auto) 3.2 Thou/mm3 (0.0-0.5); Eosinophils % (Auto) 19 % (0-10); Hematocrit 44.3 % (36.0-46.0); Hemoglobin 14.4 g/dL (12.0-16.0); Immature Granulocytes Auto 0.16 Thou/mm3 (0.00-0.00); Lymphocytes # (Auto) 1.0 Thou/mm3 (1.0-4.8); Lymphocytes % (Auto) 6 % (10-50); Mean Corpuscular HGB Conc 32.5 g/dl (31.0-37.0); Mean Corpuscular Hemoglobin 28.7 pg (25.0-35.0); Mean Corpuscular Volume 88 fL (80-100); Monocytes # (Auto) 1.6 Thou/mm3 (0.0-0.8); Monocytes % (Auto) 9 % (0-12); Neutrophils # (Auto) 11.3 Thou/mm3 (1.8-7.7); Neutrophils % (Auto) 65 % (37-80); Nucleated Red Blood Cell # 0.00 Thou/mm3 (0.00-0.00); Nucleated Red Blood Cell % 0 /100 WBC (0); Platelet Count 525 Thou/mm3 (140-440); RDW Standard Deviation 46.0 fL (36.4-46.3); Red Blood Count 5.02 Miln/mm3 (4.00-5.20); White Blood Count 17.4 Thou/mm3 (3.6-11.0)
[2025-01-09] MEDS: ONDANSETRON INJ 2 MG/ML INJ 2 ML 4 MG IVP ×3 (05:31→20:54)
[2025-01-09] MEDS: LEVOTHYROXINE SODIUM 125 MCG, LEVOTHYROXINE SODIUM 25 MCG 150 MCG PO (05:32)
[2025-01-09] MEDS: guaiFENesin/COD SYRUP 5 ML UDC 10 ML PO ×3 (05:32→20:54)
[2025-01-09 05:39] LABS: Alanine Aminotransferase 9 U/L (10-49); Albumin, Serum 3.9 gm/dL (3.4-4.8); Albumin/Globulin Ratio 1.9 (1.2-2.2); Alkaline Phosphatase 95 U/L (46-116); Anion Gap 11 (7-16); Aspartate Amino Transferase 17 U/L (0-34); BUN/Creatinine Ratio 13 Ratio (12-20); Bilirubin,Total 0.4 mg/dL (0.3-1.2); Blood Urea Nitrogen 10 mg/dL (9-23); Calcium 8.7 mg/dL (8.3-10.6); Calcium (Corrected) 8.8 mg/dL (8.5-10.1); Carbon Dioxide 30.8 mMol/L (20.0-31.0); Chloride 96 mMol/L (98-107); Creatinine (Component) 0.8 mg/dL (0.6-1.3); Estimated Creatinine Clearance 77.3 mL/min (>60); Globulin 2.1 gm/dL (2.3-3.5); Glucose 92 mg/dL (74-106); Magnesium 2.6 mg/dL (1.6-2.6); Osmolality,Calculated 274 (275-295); Phosphorous 3.4 mg/dL (2.4-5.1); Potassium 4.0 mMol/L (3.4-5.1); Sodium 138 mMol/L (136-145); Total Protein 6.0 gm/dL (5.7-8.2); eGFR > 60 See Note
[2025-01-09 06:25] LABS: Thyroglobulin 25.2 ng/mL
[2025-01-09 06:30] LABS: Thyroglobulin Antibodies* SEE SEP RPT
[2025-01-09] MEDS: BUDESONIDE RT 0.25 MG/2 ML NEBU INH ×2 (06:45→18:30)
--- NOTE | 2025-01-09 07:48 | CHAP ---
Patient ws visited by a Spiritual Care Volunteer on 01/08/2025 between 0900 and 1200 and received comfort, encouragement and/or prayer.
[2025-01-09] MEDS: PANTOPRAZOLE 40 MG TABLET PO (08:16)
[2025-01-09] MEDS: POLYETHYLENE GLYCOL 17 GM PACKET PO (08:16)
[2025-01-09] MEDS: DOCUSATE SOD 100 MG CAPSULE PO (08:16)
[2025-01-09] MEDS: SERTRALINE HCL 25 MG TABLET 50 MG PO (08:16)
[2025-01-09] MEDS: HEPARIN SOD INJ 5000 UNIT/ML VIAL SC ×2 (08:17→20:55)
--- NOTE | 2025-01-09 09:09 | PC.RT ---
Discussed with Resident James concerns of titrating HFNC at this time due to PT WOB, Explained that Spo2 does not mean patient WOB is effective or sufficient and patient is in need of flow.
--- NOTE | 2025-01-09 09:17 | PC.SS ---
Follow up note: Pt is high flow O2, 20 liters. Continue to wean down O2. [facility]ansen has obtained insurance authorization but possibly will require to submit for new authorization at d/c. Pt possibly will require d/c orders for insurance authorization (Per Yamile from [employer]).
--- NOTE | 2025-01-09 13:04 | ESPR_ITS ---
<Statement entered by Nasreen Ramirez MD - 01/10/25 05:46> Patient was seen and examined at bedside. I agree on the assessment and plan on this note as documented by resident Dr Noé Henry DO PGY1. 64-year-old female with past medical history as below has had a complicated hospital course, patient continued to be on high flow nasal cannula this morning however we did a bedside trial of oxy mask patient tolerated well on 15 L. Patient was switched over to high flow, tolerated well was titrated down to 10 L. Will continue to down titrate oxygen requirement, will continue with Lasix, will be given Lasix 20 mg IV x 1. Once clinically stable on less than 4 L we will discharge patient to [facility] facility. Case discussed with attending Dr. Wiley Ramirez MD PGY-2 Documentation for date of: 01/09/25 Subjective Subjective Interval history: The patient was stable on HFNC at 20L.min with FiO2 30%, maintaining SpO2 of 93%. Trialed Oxymask at 15L/min and patient tolerated with improved SpO2 to 97%. Will continue monitoring response to lower level oxygen therapy. Once clinically stable on <4L/min, patient will be appropriate for discharge to undergo outpatient PleurX catheter placement. Exam Vital Signs Temp Pulse Resp BP Pulse Ox O2 Del Method O2 Flow Rate 97.0 F 82 26 H 121/62 97 High Flow Nasal Cannula 15 01/09/25 08:00 01/09/25 11:49 01/09/25 11:49 01/09/25 08:00 01/09/25 11:49 01/09/25 08:00 01/09/25 11:49 FiO2 30 01/09/25 10:41 Narrative Exam General: No acute distress, well nourished, AAO x3 Eye: Normal conjunctiva, no scleral icterus HENT: Normocephalic, atraumatic, hearing intact to conversation at normal volume, moist oral mucosa Neck: Supple, non-tender, no JVD, no lymphadenopathy Lungs: Symmetric chest rise, No wheezing, rhonchi, crackles, Decreased breathe sounds in bilateral lung bases. Heart: Peripheral pulses intact bilaterally, Regular Rate and Rhythm. Abdomen: Soft, non-tender, non-distended, no palpable masses Musculoskeletal: Normal range of motion and strength, +1 pitting edema in BLE. Skin: Skin is warm, dry, no rashes or lesions. Psychiatric: Cooperative, appropriate mood and affect, Awake and alert, not agitated Neuro: Cranial nerves II-XII grossly intact. Strength 5/5 throughout. Sensations intact to light touch. Objective Labs 01/10/25 06:50 01/10/25 05:16 Labs: Laboratory Results - last 24 hr 01/04/25 01/09/25 05:55 04:03 WBC 17.4 H RBC 5.02 Hgb 14.4 Hct 44.3 MCV 88 MCH 28.7 MCHC 32.5 RDW Std Deviation 46.0 Plt Count 525 H D Neut % (Auto) 65 Lymph % (Auto) 6 L [place] % (Auto) 9 Eos % (Auto) 19 H Baso % (Auto) 1 Neut # (Auto) 11.3 H Lymph # (Auto) 1.0 [place] # (Auto) 1.6 H Eos # (Auto) 3.2 H Baso # (Auto) 0.2 Immature Gran # (Auto) 0.16 H Absolute Nucleated RBC 0.00 Immature Gran % 1 H Nucleated RBC % 0 Sodium 138 Potassium 4.0 D Chloride 96 L Carbon Dioxide 30.8 Anion Gap 11 BUN 10 Creatinine 0.8 Estim Creat Clear Calc 77.3 eGFR > 60 BUN/Creatinine Ratio 13 Glucose 92 Calculated Osmolality 274 L Calcium 8.7 Corrected Calcium 8.8 Phosphorus 3.4 Magnesium 2.6 Total Bilirubin 0.4 AST 17 ALT 9 L Alkaline Phosphatase 95 Total Protein 6.0 Albumin 3.9 Globulin 2.1 L Albumin/Globulin Ratio 1.9 Thyroglobulin 25.2 Thyroglobulin Antibody SEE SEP RPT Quality Measures Quality Measures VTE prophylaxis Advance care planning discussed with:: patient and other Assessment & Plan Assessment Current Active Medications: Generic Name Dose Route Start Last Admin Trade Name Freq PRN Reason Stop Dose Admin Acetaminophen 650 mg 12/23/24 05:49 Acetaminophen 325 Mg Tablet PO 01/22/25 05:48 Q6H PRN Fever >100.4 or pain 1-3 Hydrocodone Bitart/Acetaminophen 1 tab 12/30/24 02:25 01/09/25 12:14 Hydrocodone/Apap 5/325 Tablet PO 01/14/25 02:24 1 tab Q4HR PRN Administration Pain 7-10 Hydrocodone Bitart/Acetaminophen 1 tab 12/30/24 21:00 01/08/25 20:21 Hydrocodone/Apap 5/325 Tablet PO 01/14/25 20:59 1 tab HS CHAPARRO Administration Albuterol/Ipratropium 3 ml 12/23/24 07:00 01/09/25 06:45 Albuterol/Ipratropium (Duoneb) Rt Zo 3 Ml Nebu INH 01/22/25 06:59 3 ml Q6HRRT CHAPARRO Administration Albuterol/Ipratropium 3 ml 12/30/24 03:46 01/09/25 04:25 Albuterol/Ipratropium (Duoneb) Rt Zo 3 Ml Nebu INH 01/29/25 03:45 3 ml Q2HR PRN Administration SHORTNESS OF BREATH OR WHEEZE Budesonide 0.25 mg 01/08/25 19:00 01/09/25 06:45 Budesonide Rt 0.25 Mg/2 Ml Nebu INH 02/07/25 18:59 0.25 mg BIDRT CHAPARRO Administration Docusate Sodium 100 mg 12/23/24 09:00 01/09/25 08:16 Docusate Sod 100 Mg Capsule PO 01/22/25 08:59 100 mg QDAY CHAPARRO Administration Protocol Guaifenesin/Codeine Phosphate 10 ml 01/02/25 16:22 01/09/25 10:05 Guaifenesin/Cod Syrup 5 Ml Udc PO 02/01/25 16:21 10 ml Q4HR PRN Administration COUGH Protocol Heparin Sodium (Porcine) 5,000 unit 12/25/24 21:00 01/09/25 08:17 Heparin Sod Inj 5000 Unit/Ml Vial SC 01/11/25 20:59 5,000 unit Q12HR CHAPARRO Administration Levothyroxine Sodium 125 mcg/ 150 mcg 01/06/25 06:00 01/09/25 05:32 Levothyroxine Sodium 25 mcg PO 02/05/25 05:59 150 mcg ACBR CHAPARRO Administration Metoclopramide HCl 5 mg 01/03/25 10:40 01/08/25 07:53 Metoclopramide Inj 5 Mg/Ml Vial 2 Ml IVP 02/02/25 13:59 5 mg Q8HR PRN Administration NAUSEA OR VOMITING Protocol Ondansetron HCl 4 mg 12/25/24 21:56 01/09/25 11:57 Ondansetron Inj 2 Mg/Ml Inj 2 Ml IVP 01/24/25 21:55 4 mg Q6HR PRN Administration NAUSEA OR VOMITING Protocol Pantoprazole Sodium 40 mg 01/03/25 09:00 01/09/25 08:16 Pantoprazole 40 Mg Tablet PO 02/02/25 08:59 40 mg QDAY CHAPARRO Administration Protocol Polyethylene Glycol 17 gm 01/06/25 09:00 01/09/25 08:16 Polyethylene Glycol 17 Gm Packet PO 02/05/25 08:59 17 gm QDAY CHAPARRO Administration Scopolamine 1 mg 01/04/25 13:30 01/07/25 14:57 Scopolamine 1 Mg Tdsy TOP 02/03/25 13:29 1 mg Q3D CHAPARRO Administration Sertraline HCl 50 mg 12/23/24 09:00 01/09/25 08:16 Sertraline Hcl 25 Mg Tablet PO 01/22/25 08:59 50 mg QDAY CHAPARRO Administration Plan Mrs. Andrew is a 64-year-old female past medical significant of asthma, breast cancer s/p mastectomy 2017, thyroid cancer s/p thyroidectomy 2021 and radiation therapy, recently admitted for acute hypoxic respiratory failure secondary to right large pleural effusion discharged 11/20 presenting today 12/23 with similar complaint of SOB. #Acute hypoxic respiratory failure / #Left sided malignant pleural effusion / #Metastatic breast cancer, stage IV #Chronic Hydropneumothorax right lung, trapped lung #S/P Left Lung Biopsy #Status post chest tube placement 12/24/24, discontinued 01/01/25 #Asthma, by history On initial presentation patient speaking in short sentences oxygen saturation 86% on 5L nasal cannula. Recent admission of similar presentation revealed exudative effusion from malignant metastases. Patient established with oncology outpatient, was transferred out for decortication however no intervention was done because of stage IV breast cancer per patient. 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 Status post Left upper lobe lung mass pulmonary biopsy (12/27/2024). -Discussed the case with Oncology, Dr. Flowers. Lung biopsy confirms malignancy consistent with breast primary. Prognostic markers including ER/PA receptors and HER2/stevie results are still pending. -Chest tube was removed on 01/01 because it was leaking. -Patient's PET scan has been delayed to January 21, 2025 at 1:45 PM -Per oncology, the biopsy results of the lung showed dual metastasis of breast primary and papillary thyroid carcinoma. Receptors were negative ER/PA, negative HER2/Stevie and negative KI?67 15 to 20% positive. Second focus consistent with metastatic thyroid carcinoma IHC is pending for confirmation. PD-L1 was requested for possible immunotherapy. Her elevated TSH could be related to the metastic cancer problem. -01/07: Patient's O2 saturation decreased to 83%. Received thoracentesis draining ~770cc. CXR after thoracentesis showed reexpanded left lung. Was given IV lasix 40mg x1. Have discussed about the event and patient's status with oncologist, Dr. Flowers , Upon stabilization of patient's vitals, she will be discharged and received PleurX catheter at [facility] and follow-up with Dr. Li at [facility] in [place]. -Checks x-ray postthoracentesis on 01/07 showed some fluid in the right fissure. Per ICU recommendations, started on IV Lasix 40 mg and ordered echo. -Echo(01/07/2025) showed indeterminate diastolic function with ejection fraction 55 to 60% and RVSP 20 mmHg. Today patient showed +1 pitting edema on her bilateral leg. LV and RV size was normal and systolic function was also normal. Plan: -Will try to taper down and discontinue patient's high flow nasal cannula and to oxymask. Will need to do outpt pleurX catheter placement. -Continue DuoNebs q6h, DuoNebs every 2 hours as needed -[place] 5 every 4 hours as needed, [place] 5 at night @2100 -Supplemental O2, titrate as tolerated to maintain SpO2 >93% -Incentive spirometry -Pulmonology consulted, appreciate recommendations. -Oncology consulted, appreciate recommendations #Hypothyroidism #Hx thyroid cancer s/p thyroidectomy 2021 No current active symptoms of hyperthyroid currently. TSH >100 free T4 0.86 Free T3 1.7 Patient's TSH level has been increasing. On admission, TSH 101.7 with free T4: 0.86. On 01/03, TSH>150 with free T4: 0.78. Patient's p.o. levothyroxine 125 mcg has been stopped. IV levothyroxine 125 mcg x 1 has been ordered on 01/04. Will continue to monitor her TSH level. Plan: -Increased levothyroxine dosage to 150 mcg/day. -Outpatient titration of medication #Dysphagia -Sensation of food/medicine not going down, with epigastric chest discomfort on eating. -Difficulty removing phlegm. -Ddx: GERD, stictures, Mets to esophagus. -Swallow eval (01/01/2025): Any large pills should be crushed. Pt is independent in eating/swallowing using compensatory techniques and specific diet selections. No further swallow treatment servives warranted at this time. Plan: -Based on swallow evaluation, outpatient management is recommended. #Hx of pressure injury, coccyx, stage III Patient reports frequent back pain and it was noted that the patient had a possible pressure injury and her coccyx area. Per last admission, the wound staging is stage III without any drainage or order. Plan: -Referral to wound care -Continue to monitor #Depression - Continue home dose sertraline Health Maintenance: Code status: Full code DVT prophylaxis: Heparin every 12 hours GI prophylaxis: Protonix 40mg Diet: Regular diet Mccallum: None Lines: PIV Supplemental O2: Nasal cannula Disposition: Tele Assessment and plan discussed with my attending physician Dr. Rosales and Dr. Ramirez (PGY-2) Dr. Henry (PGY-1) - Internal medicine resident Attending Provider Attestation/Addendum I have seen and examined the patient. I was physically present for the shannon portions of the services provided including history, physical exam, diagnosis, treatment plans and orders. I agree with assessment and plan of care as documented by residents. Patient seen and examined at bedside this morning. Continues to be on mild respiratory distress, speaking in short sentences. Was on high flow nasal cannula this morning 20 L/min, 30 FiO2. Switched to oxygen mask at 15 L/min, patient was able to maintain her oxygen saturation around high 90s. We will continue to titrate her oxygen down. Pedal edema noted to have slightly improved. Continues to be on levothyroxine 150 daily. Rest of the vital signs are stable. We will try to discontinue her guaifenesin/codeine. Continues to be on incentive spirometer. Even though this this note was carefully revised there may still be minor errors in filer and sander due to voice recognition software. Wiley Rosales MD
--- NOTE | 2025-01-09 18:37 | PC.RT ---
per DR. James Ramsey keep pt on oxymask unless not tolerated place back on high flow, also keep pt on q6 nebulized txs, pt on 10L oxymask tolerating well at this time, RR 26, abd breathing.
[2025-01-09] MEDS: FUROSEMIDE INJ 10 MG/ML VIAL 2 ML 20 MG IVP (19:14)
[2025-01-10] VITALS (12 sets, daily range): BP systolic 107–136; BP diastolic 67–87; PULSE 70–111; RESP 12–30; TEMP 35.9–36.7; O2SAT 92–96; BMI 24.9
[2025-01-10] MEDS: ALBUTEROL/IPRATROPIUM (Duoneb) RT SOL 3 ML NEBU INH ×4 (00:13→19:40)
[2025-01-10] MEDS: HYDROcodone/APAP 5/325 TABLET 1 TAB PO ×4 (04:14→20:21)
[2025-01-10] MEDS: guaiFENesin/COD SYRUP 5 ML UDC 10 ML PO ×3 (04:26→22:09)
[2025-01-10] MEDS: LEVOTHYROXINE SODIUM 125 MCG, LEVOTHYROXINE SODIUM 25 MCG 150 MCG PO (05:43)
[2025-01-10 06:10] LABS: Alanine Aminotransferase 11 U/L (10-49); Albumin, Serum 3.7 gm/dL (3.4-4.8); Albumin/Globulin Ratio 1.8 (1.2-2.2); Alkaline Phosphatase 101 U/L (46-116); Anion Gap 10 (7-16); Aspartate Amino Transferase 19 U/L (0-34); BUN/Creatinine Ratio 11 Ratio (12-20); Bilirubin,Total 0.3 mg/dL (0.3-1.2); Blood Urea Nitrogen 9 mg/dL (9-23); Calcium 9.0 mg/dL (8.3-10.6); Calcium (Corrected) 9.2 mg/dL (8.5-10.1); Carbon Dioxide 32.9 mMol/L (20.0-31.0); Chloride 95 mMol/L (98-107); Creatinine (Component) 0.8 mg/dL (0.6-1.3); Estimated Creatinine Clearance 77.3 mL/min (>60); Globulin 2.1 gm/dL (2.3-3.5); Glucose 94 mg/dL (74-106); Magnesium 2.2 mg/dL (1.6-2.6); Osmolality,Calculated 274 (275-295); Phosphorous 4.0 mg/dL (2.4-5.1); Potassium 3.8 mMol/L (3.4-5.1); Sodium 138 mMol/L (136-145); Total Protein 5.8 gm/dL (5.7-8.2); eGFR > 60 See Note
[2025-01-10] MEDS: BUDESONIDE RT 0.25 MG/2 ML NEBU INH ×2 (06:29→19:40)
[2025-01-10 07:10] LABS: Basophils # (Auto) 0.2 Thou/mm3 (0.0-0.2); Basophils % (Auto) 1 % (0-2.5); Eosinophils # (Auto) 3.0 Thou/mm3 (0.0-0.5); Eosinophils % (Auto) 19 % (0-10); Hematocrit 44.9 % (36.0-46.0); Hemoglobin 14.4 g/dL (12.0-16.0); Immature Granulocytes Auto 0.10 Thou/mm3 (0.00-0.00); Lymphocytes # (Auto) 0.7 Thou/mm3 (1.0-4.8); Lymphocytes % (Auto) 5 % (10-50); Mean Corpuscular HGB Conc 32.1 g/dl (31.0-37.0); Mean Corpuscular Hemoglobin 28.7 pg (25.0-35.0); Mean Corpuscular Volume 90 fL (80-100); Monocytes # (Auto) 1.3 Thou/mm3 (0.0-0.8); Monocytes % (Auto) 8 % (0-12); Neutrophils # (Auto) 10.2 Thou/mm3 (1.8-7.7); Neutrophils % (Auto) 66 % (37-80); Nucleated Red Blood Cell # 0.00 Thou/mm3 (0.00-0.00); Nucleated Red Blood Cell % 0 /100 WBC (0); Platelet Count 467 Thou/mm3 (140-440); RDW Standard Deviation 47.1 fL (36.4-46.3); Red Blood Count 5.01 Miln/mm3 (4.00-5.20); White Blood Count 15.4 Thou/mm3 (3.6-11.0)
--- NOTE | 2025-01-10 09:35 | PC.SS ---
Follow up note: Pt is on 10 liters of O2. Continue to Wean down O2. SS has informed Yamile from [employer].
[2025-01-10] MEDS: PANTOPRAZOLE 40 MG TABLET PO (10:17)
[2025-01-10] MEDS: SERTRALINE HCL 25 MG TABLET 50 MG PO (10:17)
[2025-01-10] MEDS: HEPARIN SOD INJ 5000 UNIT/ML VIAL SC ×2 (10:17→20:21)
[2025-01-10] MEDS: DOCUSATE SOD 100 MG CAPSULE PO (10:18)
[2025-01-10] MEDS: POLYETHYLENE GLYCOL 17 GM PACKET PO (10:18)
[2025-01-10] MEDS: POTASSIUM CHL 10 mEq IVPB 10 MEQ/100 ML BAG 100 MEQ IV ×4 (10:29→14:38)
[2025-01-10] MEDS: MORPHINE SULF INJ 4 MG/ML VIAL 1 MG IVP (11:32)
[2025-01-10] MEDS: FUROSEMIDE INJ 10 MG/ML VIAL 2 ML 20 MG IVP (11:33)
--- NOTE | 2025-01-10 13:31 | ESPR_ITS ---
<Statement entered by Nasreen Ramirez MD - 01/12/25 17:54> Patient was seen and examined at bedside. I agree on the assessment and plan on this note as documented by resident Dr Noé Henry DO PGY1. Patient seen and examined at bedside, continues to be on oxy mask, was down titrated to 7 L, we will continue diuresis with Lasix. Was tapered off of high flow nasal cannula yesterday, started on bowel regimen, will be given naloxegol x 1 as patient has been on [place] for pain. Case discussed with attending Dr. Wiley Ramirez MD PGY-2 Documentation for date of: 01/10/25 Subjective Subjective Interval history: Patient tolerated Oxymask 7L with O2 sat of 97%. However, she felt out of breath, so her oxygen level was increased to 8L. Had diffuse bodyache. Was given IV morphine 1mg x1 and Naloxegol 25mg po x1. Was given IV Furosemide 20mg x1 to lower her fluid in lungs. Will continue to taper down oxygen until discharge. Exam Vital Signs Temp Pulse Resp BP Pulse Ox O2 Del Method O2 Flow Rate 96.7 F L 111 H 26 H 128/68 96 Oxy Mask 8 01/10/25 12:00 01/10/25 12:22 01/10/25 12:22 01/10/25 12:00 01/10/25 12:22 01/10/25 12:00 01/10/25 12:22 FiO2 30 01/10/25 04:00 Narrative Exam General: No acute distress, well nourished, AAO x3 Eye: Normal conjunctiva, no scleral icterus HENT: Normocephalic, atraumatic, hearing intact to conversation at normal volume, moist oral mucosa Neck: Supple, non-tender, no JVD, no lymphadenopathy Lungs: Symmetric chest rise, No wheezing, rhonchi, crackles, Decreased breathe sounds in bilateral lung bases. Heart: Peripheral pulses intact bilaterally, Regular Rate and Rhythm. Abdomen: Soft, non-tender, non-distended, no palpable masses Musculoskeletal: Normal range of motion and strength, +1 pitting edema in BLE. Skin: Skin is warm, dry, no rashes or lesions. Psychiatric: Cooperative, appropriate mood and affect, Awake and alert, not agitated Neuro: Cranial nerves II-XII grossly intact. Strength 5/5 throughout. Sensations intact to light touch. Objective Labs 01/12/25 04:59 01/12/25 04:59 Labs: Laboratory Results - last 24 hr 01/10/25 01/10/25 05:16 06:50 WBC 15.4 H RBC 5.01 Hgb 14.4 Hct 44.9 MCV 90 MCH 28.7 MCHC 32.1 RDW Std Deviation 47.1 H Plt Count 467 H D Neut % (Auto) 66 Lymph % (Auto) 5 L [place] % (Auto) 8 Eos % (Auto) 19 H Baso % (Auto) 1 Neut # (Auto) 10.2 H Lymph # (Auto) 0.7 L [place] # (Auto) 1.3 H Eos # (Auto) 3.0 H Baso # (Auto) 0.2 Immature Gran # (Auto) 0.10 H Absolute Nucleated RBC 0.00 Immature Gran % 1 H Nucleated RBC % 0 Sodium 138 Potassium 3.8 Chloride 95 L Carbon Dioxide 32.9 H Anion Gap 10 BUN 9 Creatinine 0.8 Estim Creat Clear Calc 77.3 eGFR > 60 BUN/Creatinine Ratio 11 L Glucose 94 Calculated Osmolality 274 L Calcium 9.0 Corrected Calcium 9.2 Phosphorus 4.0 Magnesium 2.2 Total Bilirubin 0.3 AST 19 ALT 11 Alkaline Phosphatase 101 Total Protein 5.8 Albumin 3.7 Globulin 2.1 L Albumin/Globulin Ratio 1.8 Quality Measures Quality Measures VTE prophylaxis Advance care planning discussed with:: patient and other Assessment & Plan Assessment Current Active Medications: Generic Name Dose Route Start Last Admin Trade Name Freq PRN Reason Stop Dose Admin Acetaminophen 650 mg 12/23/24 05:49 Acetaminophen 325 Mg Tablet PO 01/22/25 05:48 Q6H PRN Fever >100.4 or pain 1-3 Hydrocodone Bitart/Acetaminophen 1 tab 12/30/24 02:25 01/10/25 10:38 Hydrocodone/Apap 5/325 Tablet PO 01/14/25 02:24 1 tab Q4HR PRN Administration Pain 7-10 Hydrocodone Bitart/Acetaminophen 1 tab 12/30/24 21:00 01/09/25 20:55 Hydrocodone/Apap 5/325 Tablet PO 01/14/25 20:59 1 tab HS CHAPARRO Administration Albuterol/Ipratropium 3 ml 12/23/24 07:00 01/10/25 12:21 Albuterol/Ipratropium (Duoneb) Rt Zo 3 Ml Nebu INH 01/22/25 06:59 3 ml Q6HRRT CHAPARRO Administration Albuterol/Ipratropium 3 ml 12/30/24 03:46 01/09/25 04:25 Albuterol/Ipratropium (Duoneb) Rt Zo 3 Ml Nebu INH 01/29/25 03:45 3 ml Q2HR PRN Administration SHORTNESS OF BREATH OR WHEEZE Budesonide 0.25 mg 01/08/25 19:00 01/10/25 06:29 Budesonide Rt 0.25 Mg/2 Ml Nebu INH 02/07/25 18:59 0.25 mg BIDRT CHAPARRO Administration Docusate Sodium 100 mg 12/23/24 09:00 01/10/25 10:18 Docusate Sod 100 Mg Capsule PO 01/22/25 08:59 100 mg QDAY CHAPARRO Administration Protocol Guaifenesin/Codeine Phosphate 10 ml 01/02/25 16:22 01/10/25 04:26 Guaifenesin/Cod Syrup 5 Ml Udc PO 02/01/25 16:21 10 ml Q4HR PRN Administration COUGH Protocol Heparin Sodium (Porcine) 5,000 unit 12/25/24 21:00 01/10/25 10:17 Heparin Sod Inj 5000 Unit/Ml Vial SC 01/11/25 20:59 5,000 unit Q12HR CHAPARRO Administration Levothyroxine Sodium 125 mcg/ 150 mcg 01/06/25 06:00 01/10/25 05:43 Levothyroxine Sodium 25 mcg PO 02/05/25 05:59 150 mcg ACBR CHAPARRO Administration Lidocaine 1 patch 01/10/25 11:30 Lidocaine 5% 1 Patch TOP 02/09/25 11:29 UD PRN Back Pain Metoclopramide HCl 5 mg 01/03/25 10:40 01/08/25 07:53 Metoclopramide Inj 5 Mg/Ml Vial 2 Ml IVP 02/02/25 13:59 5 mg Q8HR PRN Administration NAUSEA OR VOMITING Protocol Ondansetron HCl 4 mg 12/25/24 21:56 01/09/25 20:54 Ondansetron Inj 2 Mg/Ml Inj 2 Ml IVP 01/24/25 21:55 4 mg Q6HR PRN Administration NAUSEA OR VOMITING Protocol Pantoprazole Sodium 40 mg 01/03/25 09:00 01/10/25 10:17 Pantoprazole 40 Mg Tablet PO 02/02/25 08:59 40 mg QDAY CHAPARRO Administration Protocol Polyethylene Glycol 17 gm 01/06/25 09:00 01/10/25 10:18 Polyethylene Glycol 17 Gm Packet PO 02/05/25 08:59 17 gm QDAY CHAPARRO Administration Scopolamine 1 mg 01/04/25 13:30 01/07/25 14:57 Scopolamine 1 Mg Tdsy TOP 02/03/25 13:29 1 mg Q3D CHAPARRO Administration Sertraline HCl 50 mg 12/23/24 09:00 01/10/25 10:17 Sertraline Hcl 25 Mg Tablet PO 01/22/25 08:59 50 mg QDAY CHAPARRO Administration Plan Mrs. Andrew is a 64-year-old female past medical significant of asthma, breast cancer s/p mastectomy 2017, thyroid cancer s/p thyroidectomy 2021 and radiation therapy, recently admitted for acute hypoxic respiratory failure secondary to right large pleural effusion discharged 11/20 presenting today 12/23 with similar complaint of SOB. #Acute hypoxic respiratory failure / #Left sided malignant pleural effusion / #Metastatic breast cancer, stage IV #Chronic Hydropneumothorax right lung, trapped lung #S/P Left Lung Biopsy #Status post chest tube placement 12/24/24, discontinued 01/01/25 #Asthma, by history On initial presentation patient speaking in short sentences oxygen saturation 86% on 5L nasal cannula. Recent admission of similar presentation revealed exudative effusion from malignant metastases. Patient established with oncology outpatient, was transferred out for decortication however no intervention was done because of stage IV breast cancer per patient. 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 Status post Left upper lobe lung mass pulmonary biopsy (12/27/2024). -Discussed the case with Oncology, Dr. Flowers. Lung biopsy confirms malignancy consistent with breast primary. Prognostic markers including ER/WV receptors and HER2/stevie results are still pending. -Chest tube was removed on 01/01 because it was leaking. -Patient's PET scan has been delayed to January 21, 2025 at 1:45 PM -Per oncology, the biopsy results of the lung showed dual metastasis of breast primary and papillary thyroid carcinoma. Receptors were negative ER/WV, negative HER2/Stevie and negative KI?67 15 to 20% positive. Second focus consistent with metastatic thyroid carcinoma IHC is pending for confirmation. PD-L1 was requested for possible immunotherapy. Her elevated TSH could be related to the metastic cancer problem. -01/07: Patient's O2 saturation decreased to 83%. Received thoracentesis draining ~770cc. CXR after thoracentesis showed reexpanded left lung. Was given IV lasix 40mg x1. Have discussed about the event and patient's status with oncologist, Dr. Flowers , Upon stabilization of patient's vitals, she will be discharged and received PleurX catheter at [facility] and follow-up with Dr. Li at [facility] in [place]. -Checks x-ray postthoracentesis on 01/07 showed some fluid in the right fissure. Per ICU recommendations, started on IV Lasix 40 mg and ordered echo. -Echo(01/07/2025) showed indeterminate diastolic function with ejection fraction 55 to 60% and RVSP 20 mmHg. Today patient showed +1 pitting edema on her bilateral leg. LV and RV size was normal and systolic function was also normal. Plan: -Will try to taper down and discontinue patient's high flow nasal cannula and to oxymask. Will need to do outpt pleurX catheter placement. -Continue DuoNebs q6h, DuoNebs every 2 hours as needed -[place] 5 every 4 hours as needed, [place] 5 at night @2100 -Supplemental O2, titrate as tolerated to maintain SpO2 >93% -Incentive spirometry -Pulmonology consulted, appreciate recommendations. -Oncology consulted, appreciate recommendations #Hypothyroidism #Hx thyroid cancer s/p thyroidectomy 2021 No current active symptoms of hyperthyroid currently. TSH >100 free T4 0.86 Free T3 1.7 Patient's TSH level has been increasing. On admission, TSH 101.7 with free T4: 0.86. On 01/03, TSH>150 with free T4: 0.78. Patient's p.o. levothyroxine 125 mcg has been stopped. IV levothyroxine 125 mcg x 1 has been ordered on 01/04. Will continue to monitor her TSH level. Plan: -Increased levothyroxine dosage to 150 mcg/day. -Outpatient titration of medication #Dysphagia -Sensation of food/medicine not going down, with epigastric chest discomfort on eating. -Difficulty removing phlegm. -Ddx: GERD, stictures, Mets to esophagus. -Swallow eval (01/01/2025): Any large pills should be crushed. Pt is independent in eating/swallowing using compensatory techniques and specific diet selections. No further swallow treatment servives warranted at this time. Plan: -Based on swallow evaluation, outpatient management is recommended. #Hx of pressure injury, coccyx, stage III Patient reports frequent back pain and it was noted that the patient had a possible pressure injury and her coccyx area. Per last admission, the wound staging is stage III without any drainage or order. Plan: -Referral to wound care -Continue to monitor #Depression - Continue home dose sertraline Health Maintenance: Code status: Full code DVT prophylaxis: Heparin every 12 hours GI prophylaxis: Protonix 40mg Diet: Regular diet Mccallum: None Lines: PIV Supplemental O2: Nasal cannula Disposition: Tele Assessment and plan discussed with my attending physician Dr. Rosales and Dr. Ramirez (PGY-2) Dr. Henry (PGY-1) - Internal medicine resident Attending Provider Attestation/Addendum I have seen and examined the patient. I was physically present for the shannon portions of the services provided including history, physical exam, diagnosis, treatment plans and orders. I agree with assessment and plan of care as documented by residents. Patient seen and examined at bedside this morning. Complains of shortness of breath. Saturating currently well on 8 L nasal cannula. Also complaint of upper abdominal pain, has not had a bowel movement for few days. We will adjust her bowel regimen. We will also continue to titrate down her oxygen level as tolerated. Even though this this note was carefully revised there may still be minor errors in transcription coordinator due to voice recognition software. Wiley Rosales MD
[2025-01-10] MEDS: NALOXEGOL OXALATE 25 MG TABLET (NON-FORMULARY) PO (15:48)
[2025-01-10] MEDS: SCOPOLAMINE 1 MG TDSY TOP (15:48)
[2025-01-10] MEDS: ONDANSETRON INJ 2 MG/ML INJ 2 ML 4 MG IVP (17:51)
[2025-01-11] VITALS (17 sets, daily range): BP systolic 110–144; BP diastolic 66–110; PULSE 73–408; RESP 15–42; TEMP 35.9–36.9; O2SAT 84–100; BMI 24.9
[2025-01-11] MEDS: ALBUTEROL/IPRATROPIUM (Duoneb) RT SOL 3 ML NEBU INH ×4 (01:33→19:14)
[2025-01-11] MEDS: HYDROcodone/APAP 5/325 TABLET 1 TAB PO ×3 (03:20→20:27)
[2025-01-11] MEDS: ONDANSETRON INJ 2 MG/ML INJ 2 ML 4 MG IVP ×3 (03:20→20:38)
[2025-01-11] MEDS: FUROSEMIDE INJ 10 MG/ML VIAL 2 ML 20 MG IVP (03:20)
[2025-01-11] MEDS: LEVOTHYROXINE SODIUM 125 MCG, LEVOTHYROXINE SODIUM 25 MCG 150 MCG PO (06:10)
[2025-01-11] MEDS: guaiFENesin/COD SYRUP 5 ML UDC 10 ML PO (06:14)
[2025-01-11 06:19] LABS: Basophils # (Auto) 0.1 Thou/mm3 (0.0-0.2); Basophils % (Auto) 1 % (0-2.5); Eosinophils # (Auto) 3.2 Thou/mm3 (0.0-0.5); Eosinophils % (Auto) 21 % (0-10); Hematocrit 46.2 % (36.0-46.0); Hemoglobin 14.9 g/dL (12.0-16.0); Immature Granulocytes Auto 0.09 Thou/mm3 (0.00-0.00); Lymphocytes # (Auto) 0.7 Thou/mm3 (1.0-4.8); Lymphocytes % (Auto) 5 % (10-50); Mean Corpuscular HGB Conc 32.3 g/dl (31.0-37.0); Mean Corpuscular Hemoglobin 28.7 pg (25.0-35.0); Mean Corpuscular Volume 89 fL (80-100); Monocytes # (Auto) 1.2 Thou/mm3 (0.0-0.8); Monocytes % (Auto) 8 % (0-12); Neutrophils # (Auto) 9.9 Thou/mm3 (1.8-7.7); Neutrophils % (Auto) 65 % (37-80); Nucleated Red Blood Cell # 0.00 Thou/mm3 (0.00-0.00); Nucleated Red Blood Cell % 0 /100 WBC (0); Platelet Count 463 Thou/mm3 (140-440); RDW Standard Deviation 45.9 fL (36.4-46.3); Red Blood Count 5.20 Miln/mm3 (4.00-5.20); White Blood Count 15.3 Thou/mm3 (3.6-11.0)
[2025-01-11 06:38] LABS: Alanine Aminotransferase 12 U/L (10-49); Albumin, Serum 3.9 gm/dL (3.4-4.8); Albumin/Globulin Ratio 1.6 (1.2-2.2); Alkaline Phosphatase 105 U/L (46-116); Anion Gap 9 (7-16); Aspartate Amino Transferase 20 U/L (0-34); BUN/Creatinine Ratio 11 Ratio (12-20); Bilirubin,Total 0.3 mg/dL (0.3-1.2); Blood Urea Nitrogen 8 mg/dL (9-23); Calcium 9.1 mg/dL (8.3-10.6); Calcium (Corrected) 9.2 mg/dL (8.5-10.1); Carbon Dioxide 30.7 mMol/L (20.0-31.0); Chloride 96 mMol/L (98-107); Creatinine (Component) 0.7 mg/dL (0.6-1.3); Estimated Creatinine Clearance 88.4 mL/min (>60); Globulin 2.5 gm/dL (2.3-3.5); Glucose 83 mg/dL (74-106); Magnesium 1.9 mg/dL (1.6-2.6); Osmolality,Calculated 269 (275-295); Phosphorous 3.8 mg/dL (2.4-5.1); Potassium 3.4 mMol/L (3.4-5.1); Sodium 136 mMol/L (136-145); Total Protein 6.4 gm/dL (5.7-8.2); eGFR > 60 See Note
[2025-01-11] MEDS: BUDESONIDE RT 0.25 MG/2 ML NEBU INH ×2 (06:56→19:14)
[2025-01-11] MEDS: PANTOPRAZOLE 40 MG TABLET PO (08:55)
[2025-01-11] MEDS: SERTRALINE HCL 25 MG TABLET 50 MG PO (08:55)
[2025-01-11] MEDS: DOCUSATE SOD 100 MG CAPSULE PO (08:55)
[2025-01-11] MEDS: POLYETHYLENE GLYCOL 17 GM PACKET PO (08:55)
[2025-01-11] MEDS: HEPARIN SOD INJ 5000 UNIT/ML VIAL SC (08:55)
--- NOTE | 2025-01-11 09:10 | PC.SS ---
Follow up note: Pt is on 10 liters of O2. Continue to wean down O2. Pt will require new insurance authorization once she is medically cleared. Pt will d/c to [facility].
[2025-01-11] MEDS: POTASSIUM CHL 10 mEq IVPB 10 MEQ/100 ML BAG 75 MEQ IV ×2 (09:30→11:46)
[2025-01-11] MEDS: Magnesium Sulfate 4 GM Ivpb 4 GM/50 ML BAG IV (09:30)
--- NOTE | 2025-01-11 09:36 | PC.SS ---
Follow up note: SS has sent updated inquiry to Felipe Johansen using [employer].
--- NOTE | 2025-01-11 11:29 | XR_ITS ---
EXAMINATION: AP chest single view TECHNIQUE: AP portable upright chest single view Date and time: January 11, 2025, 1159 hours INDICATIONS: Hypoxia today. FINDINGS: Extensive bilateral lung opacity Small pneumothorax inferior to the right lung Mild to moderate left pleural fluid Prominent vascular congestion Osseous rectors are intact IMPRESSION: Extensive bilateral pneumonia
[2025-01-11] MEDS: LACTULOSE SYRUP 20 GM/30 ML UDC PO (11:45)
[2025-01-11] MEDS: MORPHINE SULF INJ 4 MG/ML VIAL 1 MG IVP (12:27)
--- NOTE | 2025-01-11 12:30 | CHAP ---
Patient was visited by the Spiritual Care Volunteer who prayed for them. (Volunteer was in the hospital from 09:30-12:30.
[2025-01-11] MEDS: POTASSIUM CHL 10 mEq IVPB 10 MEQ/100 ML BAG 50 MEQ IV ×2 (13:11→15:16)
--- NOTE | 2025-01-11 13:22 | XR_ITS ---
EXAMINATION: Ultrasound right hemithorax Ultrasound left hemithorax Date and time: January 11, 2025, 1444 hours INDICATIONS: History bilateral pleural effusions TECHNIQUE AND FINDINGS: Multiple high-resolution grayscale sonographic images hemithoraces. Mild to moderate right pleural fluid Mild left pleural fluid IMPRESSION: Mild to moderate right pleural fluid
--- NOTE | 2025-01-11 13:22 | PD.RESEVENT ---
Documentation for date of: 01/11/25 Event Note Event Note: Rapid response called for Patient Linda Andrew, 64yF at 12:20, 01/11/2025, for agitation and shortness of breathe. Her vitals were blood pressure 130/110, HR 92, RR 42, 91% O2 saturation on OxyMask 15 L. Prior to rapid, patient received glycerin suppository NE x 1. Patient was switched to high flow nasal cannula with flow rate 35 L/min and FiO2 60% and her O2 saturation was able to maintain 97%. Patient was given IV morphine 1 mg x 1. Will continue to monitor. Assessment and plan discussed with my attending physician Dr. Rosales and Dr. Luna (PGY-2) Dr. Henry (PGY-1) - Internal medicine resident
--- NOTE | 2025-01-11 13:28 | ESPR_ITS ---
<Statement entered by Wolf Prather MD - 01/11/25 17:34> Patient seen and examined at bedside. I discussed and supervised with the pharmacy grad intern physician who took care of this patient. I personally saw and examined the patient. I agree with most of the assessment and plan. Plan of care discussed with attending Dr. Rosales. Wolf Prather MD PGY-2 Documentation for date of: 01/11/25 Subjective Subjective Interval history: Overnight patient received IV furosemide 20 mg x 1 to lower her lower extremity edema and fluid accumulation in her lungs. This morning, patient was able to maintain O2 saturation of 94 to 95% on OxyMask 8 L. Tried to decrease down her to 7 L but patient exhibited shortness of breath as, decreased breath sound and hypoxia. Repeat chest x-ray was ordered. Patient was constipated, was given glycerin suppository IN x 1 and lactulose 20 g p.o. 3 times daily. CXR (01/11/2025) showed Extensive bilateral pneumonia Rapid response called for Patient Linda Andrew, 64yF at 12:20, 01/11/2025, for agitation and shortness of breathe. Her vitals were blood pressure 130/110, HR 92, RR 42, 91% O2 saturation on OxyMask 15 L. Prior to rapid, patient received glycerin suppository IN x 1. Patient was switched to high flow nasal cannula with flow rate 35 L/min and FiO2 60% and her O2 saturation was able to maintain 97%. Patient was given IV morphine 1 mg x 1. Will continue to monitor. Labs reviewed and patient examined at the bedside. Denies chest pain, palpation, abdominal pain, fevers or chills. Exam Vital Signs Temp Pulse Resp BP Pulse Ox O2 Del Method O2 Flow Rate 96.6 F L 100 21 H 126/96 H 97 Oxy Mask 35 01/11/25 08:00 01/11/25 12:43 01/11/25 12:43 01/11/25 08:00 01/11/25 12:43 01/11/25 08:00 01/11/25 12:43 FiO2 60 01/11/25 12:43 Narrative Exam General: No acute distress, well nourished, AAO x3 Eye: Normal conjunctiva, no scleral icterus HENT: Normocephalic, atraumatic, hearing intact to conversation at normal volume, moist oral mucosa Neck: Supple, non-tender, no JVD, no lymphadenopathy Lungs: Symmetric chest rise, No wheezing, rhonchi, crackles, Decreased breathe sounds in bilateral lung bases. Heart: Peripheral pulses intact bilaterally, Regular Rate and Rhythm. Abdomen: Soft, non-tender, non-distended, no palpable masses Musculoskeletal: Normal range of motion and strength, +1 pitting edema in BLE. Skin: Skin is warm, dry, no rashes or lesions. Psychiatric: Cooperative, appropriate mood and affect, Awake and alert, not agitated Neuro: Cranial nerves II-XII grossly intact. Strength 5/5 throughout. Sensations intact to light touch. Objective Labs 01/12/25 04:59 01/12/25 04:59 Labs: Laboratory Results - last 24 hr 01/11/25 05:00 WBC 15.3 H RBC 5.20 Hgb 14.9 Hct 46.2 H MCV 89 MCH 28.7 MCHC 32.3 RDW Std Deviation 45.9 Plt Count 463 H Neut % (Auto) 65 Lymph % (Auto) 5 L [place] % (Auto) 8 Eos % (Auto) 21 H Baso % (Auto) 1 Neut # (Auto) 9.9 H Lymph # (Auto) 0.7 L [place] # (Auto) 1.2 H Eos # (Auto) 3.2 H Baso # (Auto) 0.1 Immature Gran # (Auto) 0.09 H Absolute Nucleated RBC 0.00 Immature Gran % 1 H Nucleated RBC % 0 Sodium 136 Potassium 3.4 Chloride 96 L Carbon Dioxide 30.7 Anion Gap 9 BUN 8 L Creatinine 0.7 Estim Creat Clear Calc 88.4 eGFR > 60 BUN/Creatinine Ratio 11 L Glucose 83 Calculated Osmolality 269 L Calcium 9.1 Corrected Calcium 9.2 Phosphorus 3.8 Magnesium 1.9 Total Bilirubin 0.3 AST 20 ALT 12 Alkaline Phosphatase 105 Total Protein 6.4 Albumin 3.9 Globulin 2.5 Albumin/Globulin Ratio 1.6 Quality Measures Quality Measures VTE prophylaxis Advance care planning discussed with:: patient and other Assessment & Plan Assessment Current Active Medications: Generic Name Dose Route Start Last Admin Trade Name Freq PRN Reason Stop Dose Admin Acetaminophen 650 mg 12/23/24 05:49 Acetaminophen 325 Mg Tablet PO 01/22/25 05:48 Q6H PRN Fever >100.4 or pain 1-3 Hydrocodone Bitart/Acetaminophen 1 tab 12/30/24 02:25 01/11/25 11:35 Hydrocodone/Apap 5/325 Tablet PO 01/14/25 02:24 1 tab Q4HR PRN Administration Pain 7-10 Hydrocodone Bitart/Acetaminophen 1 tab 12/30/24 21:00 01/10/25 20:21 Hydrocodone/Apap 5/325 Tablet PO 01/14/25 20:59 1 tab HS CHAPARRO Administration Albuterol/Ipratropium 3 ml 12/23/24 07:00 01/11/25 12:43 Albuterol/Ipratropium (Duoneb) Rt Zo 3 Ml Nebu INH 01/22/25 06:59 3 ml Q6HRRT CHAPARRO Administration Albuterol/Ipratropium 3 ml 12/30/24 03:46 01/09/25 04:25 Albuterol/Ipratropium (Duoneb) Rt Zo 3 Ml Nebu INH 01/29/25 03:45 3 ml Q2HR PRN Administration SHORTNESS OF BREATH OR WHEEZE Budesonide 0.25 mg 01/08/25 19:00 01/11/25 06:56 Budesonide Rt 0.25 Mg/2 Ml Nebu INH 02/07/25 18:59 0.25 mg BIDRT CHAPARRO Administration Docusate Sodium 100 mg 12/23/24 09:00 01/11/25 08:55 Docusate Sod 100 Mg Capsule PO 01/22/25 08:59 100 mg QDAY CHAPARRO Administration Protocol Guaifenesin/Codeine Phosphate 10 ml 01/02/25 16:22 01/11/25 06:14 Guaifenesin/Cod Syrup 5 Ml Udc PO 02/01/25 16:21 10 ml Q4HR PRN Administration COUGH Protocol Heparin Sodium (Porcine) 5,000 unit 12/25/24 21:00 01/11/25 08:55 Heparin Sod Inj 5000 Unit/Ml Vial SC 01/11/25 20:59 5,000 unit Q12HR CHAPARRO Administration Lactulose 20 gm 01/11/25 11:30 01/11/25 11:45 Lactulose Syrup 20 Gm/30 Ml Udc PO 02/10/25 11:29 20 gm TID CHAPARRO Administration Protocol Levothyroxine Sodium 125 mcg/ 150 mcg 01/06/25 06:00 01/11/25 06:10 Levothyroxine Sodium 25 mcg PO 02/05/25 05:59 150 mcg ACBR CHAPARRO Administration Lidocaine 1 patch 01/10/25 11:30 Lidocaine 5% 1 Patch TOP 02/09/25 11:29 UD PRN Back Pain Metoclopramide HCl 5 mg 01/03/25 10:40 01/08/25 07:53 Metoclopramide Inj 5 Mg/Ml Vial 2 Ml IVP 02/02/25 13:59 5 mg Q8HR PRN Administration NAUSEA OR VOMITING Protocol Ondansetron HCl 4 mg 12/25/24 21:56 01/11/25 12:27 Ondansetron Inj 2 Mg/Ml Inj 2 Ml IVP 01/24/25 21:55 4 mg Q6HR PRN Administration NAUSEA OR VOMITING Protocol Pantoprazole Sodium 40 mg 01/03/25 09:00 01/11/25 08:55 Pantoprazole 40 Mg Tablet PO 02/02/25 08:59 40 mg QDAY CHAPARRO Administration Protocol Polyethylene Glycol 17 gm 01/06/25 09:00 01/11/25 08:55 Polyethylene Glycol 17 Gm Packet PO 02/05/25 08:59 17 gm QDAY CHAPARRO Administration Scopolamine 1 mg 01/04/25 13:30 01/10/25 15:48 Scopolamine 1 Mg Tdsy TOP 02/03/25 13:29 1 mg Q3D CHAPARRO Administration Sertraline HCl 50 mg 12/23/24 09:00 01/11/25 08:55 Sertraline Hcl 25 Mg Tablet PO 01/22/25 08:59 50 mg QDAY CHAPARRO Administration Plan Mrs. Andrew is a 64-year-old female past medical significant of asthma, breast cancer s/p mastectomy 2017, thyroid cancer s/p thyroidectomy 2021 and radiation therapy, recently admitted for acute hypoxic respiratory failure secondary to right large pleural effusion discharged 11/20 presenting today 12/23 with similar complaint of SOB. #Acute hypoxic respiratory failure 2/2 #Left sided malignant pleural effusion 2/2 #Metastatic breast cancer, stage IV #Chronic Hydropneumothorax right lung, trapped lung #S/P Left Lung Biopsy #Status post chest tube placement 12/24/24, discontinued 01/01/25 #Asthma, by history On initial presentation patient speaking in short sentences oxygen saturation 86% on 5L nasal cannula. Recent admission of similar presentation revealed exudative effusion from malignant metastases. Patient established with oncology outpatient, was transferred out for decortication however no intervention was done because of stage IV breast cancer per patient. 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 Status post Left upper lobe lung mass pulmonary biopsy (12/27/2024). -Discussed the case with Oncology, Dr. Flowers. Lung biopsy confirms malignancy consistent with breast primary. Prognostic markers including ER/IN receptors and HER2/stevie results are still pending. -Chest tube was removed on 01/01 because it was leaking. -Patient's PET scan has been delayed to January 21, 2025 at 1:45 PM -Per oncology, the biopsy results of the lung showed dual metastasis of breast primary and papillary thyroid carcinoma. Receptors were negative ER/IN, negative HER2/Stevie and negative KI?[id number] 15 to 20% positive. Second focus consistent with metastatic thyroid carcinoma IHC is pending for confirmation. PD-L1 was requested for possible immunotherapy. Her elevated TSH could be related to the metastic cancer problem. -01/07: Patient's O2 saturation decreased to 83%. Received thoracentesis draining ~770cc. CXR after thoracentesis showed reexpanded left lung. Was given IV lasix 40mg x1. Have discussed about the event and patient's status with oncologist, Dr. Flowers , Upon stabilization of patient's vitals, she will be discharged and received PleurX catheter at [facility] and follow-up with Dr. Li at [facility] in [place]. -Checks x-ray postthoracentesis on 01/07 showed some fluid in the right fissure. Per ICU recommendations, started on IV Lasix 40 mg and ordered echo. -Echo(01/07/2025) showed indeterminate diastolic function with ejection fraction 55 to 60% and RVSP 20 mmHg. Today patient showed +1 pitting edema on her bilateral leg. LV and RV size was normal and systolic function was also normal. Plan: -Will try to taper down and discontinue patient's high flow nasal cannula and to oxymask. Will need to do outpt pleurX catheter placement. -Continue DuoNebs q6h, DuoNebs every 2 hours as needed -[place] 5 every 4 hours as needed, [place] 5 at night @2100 -Supplemental O2, titrate as tolerated to maintain SpO2 >93% -Incentive spirometry -Pulmonology consulted, appreciate recommendations. -Oncology consulted, appreciate recommendations #Hypothyroidism #Hx thyroid cancer s/p thyroidectomy 2021 No current active symptoms of hyperthyroid currently. TSH >100 free T4 0.86 Free T3 1.7 Patient's TSH level has been increasing. On admission, TSH 101.7 with free T4: 0.86. On 01/03, TSH>150 with free T4: 0.78. Patient's p.o. levothyroxine 125 mcg has been stopped. IV levothyroxine 125 mcg x 1 has been ordered on 01/04. Will continue to monitor her TSH level. Plan: -Increased levothyroxine dosage to 150 mcg/day. -Outpatient titration of medication #Dysphagia -Sensation of food/medicine not going down, with epigastric chest discomfort on eating. -Difficulty removing phlegm. -Ddx: GERD, stictures, Mets to esophagus. -Swallow eval (01/01/2025): Any large pills should be crushed. Pt is independent in eating/swallowing using compensatory techniques and specific diet selections. No further swallow treatment servives warranted at this time. Plan: -Based on swallow evaluation, outpatient management is recommended. #Hx of pressure injury, coccyx, stage III Patient reports frequent back pain and it was noted that the patient had a possible pressure injury and her coccyx area. Per last admission, the wound staging is stage III without any drainage or order. Plan: -Referral to wound care -Continue to monitor #Depression - Continue home dose sertraline Health Maintenance: Code status: Full code DVT prophylaxis: Heparin every 12 hours GI prophylaxis: Protonix 40mg Diet: Regular diet [place]: None Lines: PIV Supplemental O2: Nasal cannula Disposition: Tele Assessment and plan discussed with my attending physician Dr. Rosales and Dr. Prather (PGY-2) Dr. Henry (PGY-1) - Internal medicine resident Attending Provider Attestation/Addendum I have seen and examined the patient. I was physically present for the shannon portions of the services provided including history, physical exam, diagnosis, treatment plans and orders. I agree with assessment and plan of care as documented by residents. Patient seen and examined at bedside this morning. Continues to be on OxyMask. Has not had a bowel movement yet. Continues to have upper abdominal discomfort. This afternoon, rapid response was called, for shortness of breath and anxiety. Received a dose of IV morphine, patient w was switched to high flow nasal cannula. Chest x-ray was obtained, continues to show extensive bilateral pneumonia, mild to moderate left pleural fluid and small pneumothorax on the right lung. Also shows prominent vascular congestion. We will obtain lung ultrasound to evaluate for pleural fluid and see if there is enough fluid for PleurX catheter placement. Updated family about patient's condition, and further management plans, family shows understanding and agrees with the plan. Even though this this note was carefully revised there may still be minor errors in telephone lineworker due to voice recognition software. Wiley Rosales MD
[2025-01-11 13:50] LABS: Thyroglobulin Antibodies <1 IU/mL (< OR = 1)
[2025-01-12] VITALS (17 sets, daily range): BP systolic 101–139; BP diastolic 60–93; PULSE 74–104; RESP 12–30; TEMP 36.1–36.4; O2SAT 90–98
[2025-01-12] MEDS: ALBUTEROL/IPRATROPIUM (Duoneb) RT SOL 3 ML NEBU INH ×4 (00:27→19:04)
[2025-01-12] MEDS: HYDROcodone/APAP 5/325 TABLET 1 TAB PO ×4 (03:54→19:30)
[2025-01-12] MEDS: LACTULOSE SYRUP 20 GM/30 ML UDC PO ×3 (05:19→21:05)
[2025-01-12] MEDS: LEVOTHYROXINE SODIUM 125 MCG, LEVOTHYROXINE SODIUM 25 MCG 150 MCG PO (05:19)
[2025-01-12 06:14] LABS: Basophils # (Auto) 0.1 Thou/mm3 (0.0-0.2); Basophils % (Auto) 1 % (0-2.5); Eosinophils # (Auto) 2.8 Thou/mm3 (0.0-0.5); Eosinophils % (Auto) 17 % (0-10); Hematocrit 44.9 % (36.0-46.0); Hemoglobin 14.4 g/dL (12.0-16.0); Immature Granulocytes Auto 0.09 Thou/mm3 (0.00-0.00); Lymphocytes # (Auto) 0.8 Thou/mm3 (1.0-4.8); Lymphocytes % (Auto) 5 % (10-50); Mean Corpuscular HGB Conc 32.1 g/dl (31.0-37.0); Mean Corpuscular Hemoglobin 28.8 pg (25.0-35.0); Mean Corpuscular Volume 90 fL (80-100); Monocytes # (Auto) 1.3 Thou/mm3 (0.0-0.8); Monocytes % (Auto) 8 % (0-12); Neutrophils # (Auto) 11.5 Thou/mm3 (1.8-7.7); Neutrophils % (Auto) 70 % (37-80); Nucleated Red Blood Cell # 0.00 Thou/mm3 (0.00-0.00); Nucleated Red Blood Cell % 0 /100 WBC (0); Platelet Count 411 Thou/mm3 (140-440); RDW Standard Deviation 47.0 fL (36.4-46.3); Red Blood Count 5.00 Miln/mm3 (4.00-5.20); White Blood Count 16.5 Thou/mm3 (3.6-11.0)
[2025-01-12 06:37] LABS: Alanine Aminotransferase 11 U/L (10-49); Albumin, Serum 4.0 gm/dL (3.4-4.8); Albumin/Globulin Ratio 1.7 (1.2-2.2); Alkaline Phosphatase 105 U/L (46-116); Anion Gap 12 (7-16); Aspartate Amino Transferase 22 U/L (0-34); BUN/Creatinine Ratio 14 Ratio (12-20); Bilirubin,Total 0.3 mg/dL (0.3-1.2); Blood Urea Nitrogen 11 mg/dL (9-23); Calcium 9.1 mg/dL (8.3-10.6); Calcium (Corrected) 9.1 mg/dL (8.5-10.1); Carbon Dioxide 28.4 mMol/L (20.0-31.0); Chloride 96 mMol/L (98-107); Creatinine (Component) 0.8 mg/dL (0.6-1.3); Estimated Creatinine Clearance 77.3 mL/min (>60); Globulin 2.4 gm/dL (2.3-3.5); Glucose 94 mg/dL (74-106); Magnesium 2.6 mg/dL (1.6-2.6); Osmolality,Calculated 271 (275-295); Phosphorous 3.9 mg/dL (2.4-5.1); Potassium 4.7 mMol/L (3.4-5.1); Sodium 136 mMol/L (136-145); Total Protein 6.4 gm/dL (5.7-8.2); eGFR > 60 See Note
[2025-01-12] MEDS: BUDESONIDE RT 0.25 MG/2 ML NEBU INH ×2 (06:48→19:04)
[2025-01-12] MEDS: SERTRALINE HCL 25 MG TABLET 50 MG PO (08:02)
[2025-01-12] MEDS: PANTOPRAZOLE 40 MG TABLET PO (08:02)
[2025-01-12] MEDS: DOCUSATE SOD 100 MG CAPSULE PO (08:02)
[2025-01-12] MEDS: POLYETHYLENE GLYCOL 17 GM PACKET PO (08:03)
[2025-01-12] MEDS: MORPHINE SULF INJ 4 MG/ML VIAL 1 MG IVP ×3 (09:49→20:15)
--- NOTE | 2025-01-12 12:42 | ESPR_ITS ---
<Statement entered by Wolf Prather MD - 01/12/25 18:32> Patient seen and examined at bedside. I discussed and supervised with the quality internship physician who took care of this patient. I personally saw and examined the patient. I agree with most of the assessment and plan. Plan of care discussed with attending Dr. Rosales. Wolf Prather MD PGY-2 Documentation for date of: 01/12/25 Subjective Subjective Interval history: Started IV Lasix 40 mg twice daily. Will continue to monitor her fluid levels in her lungs and legs. Patient's family dislikes usage of ativan for anxiety. No Overnight events. Labs reviewed and patient examined at the bedside. Denies chest pain, palpation, abdominal pain, N/V, fevers or chills. Exam Vital Signs Temp Pulse Resp BP Pulse Ox O2 Del Method O2 Flow Rate 97.6 F 74 16 139/88 H 97 High Flow Nasal Cannula 30 01/12/25 11:59 01/12/25 11:59 01/12/25 11:59 01/12/25 11:59 01/12/25 11:59 01/12/25 11:59 01/12/25 11:59 FiO2 50 01/12/25 11:59 Narrative Exam General: No acute distress, well nourished, AAO x3 Eye: Normal conjunctiva, no scleral icterus HENT: Normocephalic, atraumatic, hearing intact to conversation at normal volume, moist oral mucosa Neck: Supple, non-tender, no JVD, no lymphadenopathy Lungs: Symmetric chest rise, No wheezing, rhonchi, crackles, Decreased breathe sounds in bilateral lung bases. Heart: Peripheral pulses intact bilaterally, Regular Rate and Rhythm. Abdomen: Soft, non-tender, non-distended, no palpable masses Musculoskeletal: Normal range of motion and strength, +1 pitting edema in BLE. Skin: Skin is warm, dry, no rashes or lesions. Psychiatric: Cooperative, appropriate mood and affect, Awake and alert, not agitated Neuro: Cranial nerves II-XII grossly intact. Strength 5/5 throughout. Sensations intact to light touch. Objective Labs 01/12/25 04:59 01/12/25 04:59 Labs: Laboratory Results - last 24 hr 01/12/25 04:59 WBC 16.5 H RBC 5.00 Hgb 14.4 Hct 44.9 MCV 90 MCH 28.8 MCHC 32.1 RDW Std Deviation 47.0 H Plt Count 411 D Neut % (Auto) 70 Lymph % (Auto) 5 L Ponce % (Auto) 8 Eos % (Auto) 17 H Baso % (Auto) 1 Neut # (Auto) 11.5 H Lymph # (Auto) 0.8 L Ponce # (Auto) 1.3 H Eos # (Auto) 2.8 H Baso # (Auto) 0.1 Immature Gran # (Auto) 0.09 H Absolute Nucleated RBC 0.00 Immature Gran % 1 H Nucleated RBC % 0 Sodium 136 Potassium 4.7 D Chloride 96 L Carbon Dioxide 28.4 Anion Gap 12 BUN 11 Creatinine 0.8 Estim Creat Clear Calc 77.3 eGFR > 60 BUN/Creatinine Ratio 14 Glucose 94 Calculated Osmolality 271 L Calcium 9.1 Corrected Calcium 9.1 Phosphorus 3.9 Magnesium 2.6 Total Bilirubin 0.3 AST 22 ALT 11 Alkaline Phosphatase 105 Total Protein 6.4 Albumin 4.0 Globulin 2.4 Albumin/Globulin Ratio 1.7 Quality Measures Quality Measures VTE prophylaxis Advance care planning discussed with:: patient and other Assessment & Plan Assessment Current Active Medications: Generic Name Dose Route Start Last Admin Trade Name Freq PRN Reason Stop Dose Admin Acetaminophen 650 mg 12/23/24 05:49 Acetaminophen 325 Mg Tablet PO 01/22/25 05:48 Q6H PRN Fever >100.4 or pain 1-3 Hydrocodone Bitart/Acetaminophen 1 tab 12/30/24 02:25 01/12/25 12:15 Hydrocodone/Apap 5/325 Tablet PO 01/14/25 02:24 1 tab Q4HR PRN Administration Pain 7-10 Hydrocodone Bitart/Acetaminophen 1 tab 12/30/24 21:00 01/11/25 20:27 Hydrocodone/Apap 5/325 Tablet PO 01/14/25 20:59 1 tab HS CHAPARRO Administration Albuterol/Ipratropium 3 ml 12/23/24 07:00 01/12/25 06:48 Albuterol/Ipratropium (Duoneb) Rt Zo 3 Ml Nebu INH 01/22/25 06:59 3 ml Q6HRRT CHAPARRO Administration Albuterol/Ipratropium 3 ml 12/30/24 03:46 01/09/25 04:25 Albuterol/Ipratropium (Duoneb) Rt Zo 3 Ml Nebu INH 01/29/25 03:45 3 ml Q2HR PRN Administration SHORTNESS OF BREATH OR WHEEZE Budesonide 0.25 mg 01/08/25 19:00 01/12/25 06:48 Budesonide Rt 0.25 Mg/2 Ml Nebu INH 02/07/25 18:59 0.25 mg BIDRT CHAPARRO Administration Docusate Sodium 100 mg 12/23/24 09:00 01/12/25 08:02 Docusate Sod 100 Mg Capsule PO 01/22/25 08:59 100 mg QDAY CHAPARRO Administration Protocol Furosemide 40 mg 01/12/25 12:45 Furosemide Inj 10 Mg/Ml 4ml Vial IVP 02/11/25 12:44 BIDD CHAPARRO Guaifenesin/Codeine Phosphate 10 ml 01/02/25 16:22 01/11/25 06:14 Guaifenesin/Cod Syrup 5 Ml Udc PO 02/01/25 16:21 10 ml Q4HR PRN Administration COUGH Protocol Lactulose 20 gm 01/11/25 11:30 01/12/25 05:19 Lactulose Syrup 20 Gm/30 Ml Udc PO 02/10/25 11:29 20 gm TID CHAPARRO Administration Protocol Levothyroxine Sodium 125 mcg/ 150 mcg 01/06/25 06:00 01/12/25 05:19 Levothyroxine Sodium 25 mcg PO 02/05/25 05:59 150 mcg ACBR CHAPARRO Administration Lidocaine 1 patch 01/10/25 11:30 Lidocaine 5% 1 Patch TOP 02/09/25 11:29 UD PRN Back Pain Metoclopramide HCl 5 mg 01/03/25 10:40 01/08/25 07:53 Metoclopramide Inj 5 Mg/Ml Vial 2 Ml IVP 02/02/25 13:59 5 mg Q8HR PRN Administration NAUSEA OR VOMITING Protocol Ondansetron HCl 4 mg 12/25/24 21:56 01/11/25 20:38 Ondansetron Inj 2 Mg/Ml Inj 2 Ml IVP 01/24/25 21:55 4 mg Q6HR PRN Administration NAUSEA OR VOMITING Protocol Pantoprazole Sodium 40 mg 01/03/25 09:00 01/12/25 08:02 Pantoprazole 40 Mg Tablet PO 02/02/25 08:59 40 mg QDAY CHAPARRO Administration Protocol Polyethylene Glycol 17 gm 01/06/25 09:00 01/12/25 08:03 Polyethylene Glycol 17 Gm Packet PO 02/05/25 08:59 17 gm QDAY CHAPARRO Administration Scopolamine 1 mg 01/04/25 13:30 01/10/25 15:48 Scopolamine 1 Mg Tdsy TOP 02/03/25 13:29 1 mg Q3D CHAPARRO Administration Sertraline HCl 50 mg 12/23/24 09:00 01/12/25 08:02 Sertraline Hcl 25 Mg Tablet PO 01/22/25 08:59 50 mg QDAY CHAPARRO Administration Plan Mrs. Andrew is a 64-year-old female past medical significant of asthma, breast cancer s/p mastectomy 2017, thyroid cancer s/p thyroidectomy 2021 and radiation therapy, recently admitted for acute hypoxic respiratory failure secondary to right large pleural effusion discharged 11/20 presenting today 12/23 with similar complaint of SOB. #Acute hypoxic respiratory failure / #Left sided malignant pleural effusion / #Metastatic breast cancer, stage IV #Chronic Hydropneumothorax right lung, trapped lung #S/P Left Lung Biopsy #Status post chest tube placement 12/24/24, discontinued 01/01/25 #Asthma, by history On initial presentation patient speaking in short sentences oxygen saturation 86% on 5L nasal cannula. Recent admission of similar presentation revealed exudative effusion from malignant metastases. Patient established with oncology outpatient, was transferred out for decortication however no intervention was done because of stage IV breast cancer per patient. 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 Status post Left upper lobe lung mass pulmonary biopsy (12/27/2024). -Discussed the case with Oncology, Dr. Flowers. Lung biopsy confirms malignancy consistent with breast primary. Prognostic markers including ER/IL receptors and HER2/stevie results are still pending. -Chest tube was removed on 01/01 because it was leaking. -Patient's PET scan has been delayed to January 21, 2025 at 1:45 PM -Per oncology, the biopsy results of the lung showed dual metastasis of breast primary and papillary thyroid carcinoma. Receptors were negative ER/IL, negative HER2/Stevie and negative KI?[id number] 15 to 20% positive. Second focus consistent with metastatic thyroid carcinoma IHC is pending for confirmation. PD-L1 was requested for possible immunotherapy. Her elevated TSH could be related to the metastic cancer problem. -01/07: Patient's O2 saturation decreased to 83%. Received thoracentesis draining ~770cc. CXR after thoracentesis showed reexpanded left lung. Was given IV lasix 40mg x1. Have discussed about the event and patient's status with oncologist, Dr. Flowers , Upon stabilization of patient's vitals, she will be discharged and received PleurX catheter at [facility] and follow-up with Dr. Li at [facility] in [place]. -Checks x-ray postthoracentesis on 01/07 showed some fluid in the right fissure. Per ICU recommendations, started on IV Lasix 40 mg and ordered echo. -Echo(01/07/2025) showed indeterminate diastolic function with ejection fraction 55 to 60% and RVSP 20 mmHg. Today patient showed +1 pitting edema on her bilateral leg. LV and RV size was normal and systolic function was also normal. Plan: -Will try to taper down and discontinue patient's high flow nasal cannula and to oxymask. Will need to do outpt pleurX catheter placement. -Started IV Lasix 40 mg twice daily. -Continue DuoNebs q6h, DuoNebs every 2 hours as needed -[place] 5 every 4 hours as needed, [place] 5 at night @2100 -Supplemental O2, titrate as tolerated to maintain SpO2 >93% -Incentive spirometry -Pulmonology consulted, appreciate recommendations. -Oncology consulted, appreciate recommendations #Hypothyroidism #Hx thyroid cancer s/p thyroidectomy 2021 No current active symptoms of hyperthyroid currently. TSH >100 free T4 0.86 Free T3 1.7 Patient's TSH level has been increasing. On admission, TSH 101.7 with free T4: 0.86. On 01/03, TSH>150 with free T4: 0.78. Patient's p.o. levothyroxine 125 mcg has been stopped. IV levothyroxine 125 mcg x 1 has been ordered on 01/04. Will continue to monitor her TSH level. Plan: -Increased levothyroxine dosage to 150 mcg/day. -Outpatient titration of medication #Dysphagia -Sensation of food/medicine not going down, with epigastric chest discomfort on eating. -Difficulty removing phlegm. -Ddx: GERD, stictures, Mets to esophagus. -Swallow eval (01/01/2025): Any large pills should be crushed. Pt is independent in eating/swallowing using compensatory techniques and specific diet selections. No further swallow treatment servives warranted at this time. Plan: -Based on swallow evaluation, outpatient management is recommended. #Hx of pressure injury, coccyx, stage III Patient reports frequent back pain and it was noted that the patient had a possible pressure injury and her coccyx area. Per last admission, the wound staging is stage III without any drainage or order. Plan: -Referral to wound care -Continue to monitor #Depression - Continue home dose sertraline Health Maintenance: Code status: Full code DVT prophylaxis: Heparin every 12 hours GI prophylaxis: Protonix 40mg Diet: Regular diet Mccallum: None Lines: PIV Supplemental O2: Nasal cannula Disposition: Tele Assessment and plan discussed with my attending physician Dr. Rosales and Dr. Prather (PGY-2) Dr. Henry (PGY-1) - Internal medicine resident Attending Provider Attestation/Addendum I have seen and examined the patient. I was physically present for the shannon portions of the services provided including history, physical exam, diagnosis, treatment plans and orders. I agree with assessment and plan of care as documented by residents. Patient seen and examined at bedside this morning. Continues to be on high flow nasal cannula, 30 L, 50 FiO2. Rest of the vitals are within normal limits. Noted to have decreased breath sounds bilaterally, also has bilateral pedal edema. Lab results remained stable, except for mild elevation in WBC. Pleural fluid evaluation with ultrasound done yesterday showed mild to moderate right pleural fluid and mild left pleural fluid. Started patient on aggressive IV diuretics with Lasix 40 IV twice daily. We will monitor closely for fluid output, and monitor his breathing status. We will also continue to wean her oxygen down. Family updated about patient's condition and management plans. Even though this this note was carefully revised there may still be minor errors in soccer referee due to voice recognition software. Wiley Rosales MD
[2025-01-12] MEDS: FUROSEMIDE INJ 10 MG/ML 4ML VIAL 40 MG IVP ×2 (13:15→17:36)
--- NOTE | 2025-01-12 14:34 | PC.SS ---
Rounding: On Hi-Robert O2, IV Lasix
[2025-01-12] MEDS: ONDANSETRON INJ 2 MG/ML INJ 2 ML 4 MG IVP (20:07)
[2025-01-12] MEDS: guaiFENesin/COD SYRUP 5 ML UDC 10 ML PO (20:15)
--- NOTE | 2025-01-12 20:23 | PC.NURSE ---
Per patient, pain unresolved with norco. Dr Le at bedside and patient requested a morphine dose. Per MD, give 1x morphine and PRN robitussin.
[2025-01-13] VITALS (16 sets, daily range): BP systolic 118–128; BP diastolic 68–82; PULSE 62–105; RESP 16–29; TEMP 35.6–36.1; O2SAT 85–100; BMI 24.9
[2025-01-13] MEDS: ALBUTEROL/IPRATROPIUM (Duoneb) RT SOL 3 ML NEBU INH ×5 (01:15→21:32)
[2025-01-13] MEDS: MORPHINE SULF INJ 4 MG/ML VIAL 1 MG IVP (04:01)
[2025-01-13] MEDS: LEVOTHYROXINE SODIUM 125 MCG, LEVOTHYROXINE SODIUM 25 MCG 150 MCG PO (05:18)
[2025-01-13] MEDS: LACTULOSE SYRUP 20 GM/30 ML UDC PO ×3 (05:18→21:18)
[2025-01-13] MEDS: FUROSEMIDE INJ 10 MG/ML 4ML VIAL 40 MG IVP ×2 (05:18→17:08)
[2025-01-13] MEDS: LORazepam 2 MG/ML VIAL 0.25 MG IVP (05:31)
[2025-01-13 05:43] LABS: Basophils # (Auto) 0.1 Thou/mm3 (0.0-0.2); Basophils % (Auto) 1 % (0-2.5); Eosinophils # (Auto) 3.3 Thou/mm3 (0.0-0.5); Eosinophils % (Auto) 19 % (0-10); Hematocrit 43.2 % (36.0-46.0); Hemoglobin 13.8 g/dL (12.0-16.0); Immature Granulocytes Auto 0.11 Thou/mm3 (0.00-0.00); Lymphocytes # (Auto) 0.9 Thou/mm3 (1.0-4.8); Lymphocytes % (Auto) 5 % (10-50); Mean Corpuscular HGB Conc 31.9 g/dl (31.0-37.0); Mean Corpuscular Hemoglobin 28.9 pg (25.0-35.0); Mean Corpuscular Volume 90 fL (80-100); Monocytes # (Auto) 1.6 Thou/mm3 (0.0-0.8); Monocytes % (Auto) 9 % (0-12); Neutrophils # (Auto) 11.6 Thou/mm3 (1.8-7.7); Neutrophils % (Auto) 66 % (37-80); Nucleated Red Blood Cell # 0.00 Thou/mm3 (0.00-0.00); Nucleated Red Blood Cell % 0 /100 WBC (0); Platelet Count 383 Thou/mm3 (140-440); RDW Standard Deviation 47.6 fL (36.4-46.3); Red Blood Count 4.78 Miln/mm3 (4.00-5.20); White Blood Count 17.6 Thou/mm3 (3.6-11.0)
[2025-01-13 06:25] LABS: Alanine Aminotransferase 11 U/L (10-49); Albumin, Serum 3.8 gm/dL (3.4-4.8); Albumin/Globulin Ratio 1.7 (1.2-2.2); Alkaline Phosphatase 99 U/L (46-116); Anion Gap 12 (7-16); Aspartate Amino Transferase 23 U/L (0-34); BUN/Creatinine Ratio 14 Ratio (12-20); Bilirubin,Total 0.3 mg/dL (0.3-1.2); Blood Urea Nitrogen 13 mg/dL (9-23); Calcium 8.7 mg/dL (8.3-10.6); Calcium (Corrected) 8.9 mg/dL (8.5-10.1); Carbon Dioxide 33.2 mMol/L (20.0-31.0); Chloride 94 mMol/L (98-107); Creatinine (Component) 0.9 mg/dL (0.6-1.3); Estimated Creatinine Clearance 68.7 mL/min (>60); Globulin 2.3 gm/dL (2.3-3.5); Glucose 89 mg/dL (74-106); Magnesium 2.0 mg/dL (1.6-2.6); Osmolality,Calculated 276 (275-295); Phosphorous 4.4 mg/dL (2.4-5.1); Potassium 3.6 mMol/L (3.4-5.1); Sodium 139 mMol/L (136-145); Total Protein 6.1 gm/dL (5.7-8.2); eGFR > 60 See Note
[2025-01-13] MEDS: BUDESONIDE RT 0.25 MG/2 ML NEBU INH ×2 (06:47→19:11)
--- NOTE | 2025-01-13 07:00 | PC.NURSE ---
pt. SpO2 86-89% in 20L, RT made aware.
[2025-01-13] MEDS: PANTOPRAZOLE 40 MG TABLET PO (08:37)
[2025-01-13] MEDS: POLYETHYLENE GLYCOL 17 GM PACKET PO (08:37)
[2025-01-13] MEDS: DOCUSATE SOD 100 MG CAPSULE PO (08:38)
[2025-01-13] MEDS: guaiFENesin/COD SYRUP 5 ML UDC 10 ML PO ×3 (08:38→21:18)
[2025-01-13] MEDS: SERTRALINE HCL 25 MG TABLET 50 MG PO (08:38)
[2025-01-13] MEDS: ONDANSETRON INJ 2 MG/ML INJ 2 ML 4 MG IVP ×2 (08:39→17:27)
[2025-01-13] MEDS: POTASSIUM CHL 10 mEq IVPB 10 MEQ/100 ML BAG 75 MEQ IV (09:19)
--- NOTE | 2025-01-13 10:42 | XR_ITS ---
EXAMINATION: XR chest 1V portable ORDERING PROVIDER: Wolf Prather MD HISTORY: Eval pleural effusions TECHNIQUE: Single portable AP radiograph of the chest. COMPARISON: 01/11/2025, chest radiographs. FINDINGS: Lines and Tubes: Multiple overlying monitoring leads and tubing. Lungs: Hypoinflated. Similar to slight interval worsening of left greater than right predominantly lower lung infiltrates. Reticular nodular interstitial thickening. Pleura: Similar moderate left greater than right pleural effusions. Small loculated right lateral lower lung pneumothorax, similar to prior. Cardiomediastinal Silhouette: Similar borderline cardiomegaly. Soft Tissues/Bones: Similar moderate bony degenerative changes. Overlying surgical clips across the neck and left upper chest, bilateral chest manjarrez. IMPRESSION: 1. Similar to slightly worsened bilateral infiltrates. 2. Similar moderate left greater than right pleural effusions. 3. Similar small loculated right pneumothorax.
[2025-01-13] MEDS: POTASSIUM CHL 10 mEq IVPB 10 MEQ/100 ML BAG 30 MEQ IV ×3 (12:45→20:08)
[2025-01-13] MEDS: SCOPOLAMINE 1 MG TDSY TOP (13:14)
[2025-01-13] MEDS: HYDROcodone/APAP 5/325 TABLET 1 TAB PO ×2 (13:38→21:18)
--- NOTE | 2025-01-13 14:34 | PC.SS ---
Rounding: D/c to [facility],possible plurix drain, per [facility], they can accept patient with plurix drain.
--- NOTE | 2025-01-13 14:40 | ESPR_ITS ---
<Statement entered by Wolf Prather MD - 01/13/25 16:28> Patient seen and examined at bedside. I discussed and supervised with the continuous improvement intern physician who took care of this patient. I personally saw and examined the patient. I agree with most of the assessment and plan. Plan of care discussed with attending Dr. Barboza. Wolf Prather MD PGY-2 Documentation for date of: 01/13/25 Subjective Subjective Interval history: Patient was seen and examined at bedside. No acute events took place overnight. Patient satting 95% on 20 L HFNC at 40%. Received morphine 1 mg overnight for pain control and Ativan 0.25 mg for anxiety. Scopolamine has helped reducing secretions and help with cough, throat pain, dysphagia. Net loss of 1L in balance of fluid ins and outs over the past 24h. 1 BM at 1 AM. Denies chest pain, palpation, abdominal pain, N/V, fevers or chills. WBC 17.6/16.5,?Neut?11.6 (66%),?granulocytosis? Exam Vital Signs Temp Pulse Resp BP Pulse Ox O2 Del Method O2 Flow Rate 96.4 F L 96 22 H 122/82 94 L High Flow Nasal Cannula 01/13/25 12:00 01/13/25 13:55 01/13/25 13:55 01/13/25 12:00 01/13/25 13:55 01/13/25 12:00 01/13/25 13:55 FiO2 30 01/13/25 13:55 Narrative Exam General: No acute distress, well nourished, AAO x3 Eye: Normal conjunctiva, no scleral icterus HENT: Normocephalic, atraumatic, hearing intact to conversation at normal volume, moist oral mucosa Neck: Supple, non-tender, no JVD, no lymphadenopathy Lungs: Symmetric chest rise, No wheezing, rhonchi, crackles, Decreased breathe sounds in bilateral lung bases. Heart: Peripheral pulses intact bilaterally, Regular Rate and Rhythm. Abdomen: Soft, non-tender, non-distended, no palpable masses Musculoskeletal: Normal range of motion and strength, +1 pitting edema in BLE. Skin: Skin is warm, dry, no rashes or lesions. Psychiatric: Cooperative, appropriate mood and affect, Awake and alert, not agitated Neuro: Cranial nerves II-XII grossly intact. Strength 5/5 throughout. Sensations intact to light touch. Objective Labs 01/14/25 04:48 01/14/25 04:48 Labs: Laboratory Results - last 24 hr 01/13/25 05:12 WBC 17.6 H RBC 4.78 Hgb 13.8 Hct 43.2 MCV 90 MCH 28.9 MCHC 31.9 RDW Std Deviation 47.6 H Plt Count 383 Neut % (Auto) 66 Lymph % (Auto) 5 L [place] % (Auto) 9 Eos % (Auto) 19 H Baso % (Auto) 1 Neut # (Auto) 11.6 H Lymph # (Auto) 0.9 L [place] # (Auto) 1.6 H Eos # (Auto) 3.3 H Baso # (Auto) 0.1 Immature Gran # (Auto) 0.11 H Absolute Nucleated RBC 0.00 Immature Gran % 1 H Nucleated RBC % 0 Sodium 139 Potassium 3.6 D Chloride 94 L Carbon Dioxide 33.2 H Anion Gap 12 BUN 13 Creatinine 0.9 Estim Creat Clear Calc 68.7 eGFR > 60 BUN/Creatinine Ratio 14 Glucose 89 Calculated Osmolality 276 Calcium 8.7 Corrected Calcium 8.9 Phosphorus 4.4 Magnesium 2.0 Total Bilirubin 0.3 AST 23 ALT 11 Alkaline Phosphatase 99 Total Protein 6.1 Albumin 3.8 Globulin 2.3 Albumin/Globulin Ratio 1.7 Quality Measures Quality Measures VTE prophylaxis Advance care planning discussed with:: patient and other Assessment & Plan Assessment Current Active Medications: Generic Name Dose Route Start Last Admin Trade Name Moriah PRN Reason Stop Dose Admin Acetaminophen 650 mg 12/23/24 05:49 Acetaminophen 325 Mg Tablet PO 01/22/25 05:48 Q6H PRN Fever >100.4 or pain 1-3 Hydrocodone Bitart/Acetaminophen 1 tab 12/30/24 02:25 01/13/25 13:38 Hydrocodone/Apap 5/325 Tablet PO 01/14/25 02:24 1 tab Q4HR PRN Administration Pain 7-10 Hydrocodone Bitart/Acetaminophen 1 tab 12/30/24 21:00 01/12/25 20:22 Hydrocodone/Apap 5/325 Tablet PO 01/14/25 20:59 Not Given HS CHAPARRO Albuterol/Ipratropium 3 ml 12/23/24 07:00 01/13/25 13:54 Albuterol/Ipratropium (Duoneb) Rt Zo 3 Ml Nebu INH 01/22/25 06:59 3 ml Q6HRRT CHAPARRO Administration Albuterol/Ipratropium 3 ml 12/30/24 03:46 01/09/25 04:25 Albuterol/Ipratropium (Duoneb) Rt Zo 3 Ml Nebu INH 01/29/25 03:45 3 ml Q2HR PRN Administration SHORTNESS OF BREATH OR WHEEZE Budesonide 0.25 mg 01/08/25 19:00 01/13/25 06:47 Budesonide Rt 0.25 Mg/2 Ml Nebu INH 02/07/25 18:59 0.25 mg BIDRT CHAPARRO Administration Docusate Sodium 100 mg 12/23/24 09:00 01/13/25 08:38 Docusate Sod 100 Mg Capsule PO 01/22/25 08:59 100 mg QDAY CHAPARRO Administration Protocol Dronabinol 2.5 mg 01/13/25 17:00 Dronabinol 2.5 Mg Capsule PO 02/12/25 16:59 BIDAC CHAPARRO Furosemide 40 mg 01/12/25 12:45 01/13/25 05:18 Furosemide Inj 10 Mg/Ml 4ml Vial IVP 02/11/25 12:44 40 mg BIDD CHAPARRO Administration Guaifenesin/Codeine Phosphate 10 ml 01/02/25 16:22 01/13/25 13:38 Guaifenesin/Cod Syrup 5 Ml Udc PO 02/01/25 16:21 10 ml Q4HR PRN Administration COUGH Protocol Potassium Chloride 10 meq in 100 mls @ 30 mls/hr 01/13/25 12:45 01/13/25 12:45 Kcl Ivpb IV 01/14/25 00:04 30 mls/hr Q4H CHAPARRO Administration Lactulose 20 gm 01/11/25 11:30 01/13/25 13:15 Lactulose Syrup 20 Gm/30 Ml Udc PO 02/10/25 11:29 20 gm TID CHAPARRO Administration Protocol Levothyroxine Sodium 125 mcg/ 150 mcg 01/06/25 06:00 01/13/25 05:18 Levothyroxine Sodium 25 mcg PO 02/05/25 05:59 150 mcg ACBR CHAPARRO Administration Lidocaine 1 patch 01/10/25 11:30 Lidocaine 5% 1 Patch TOP 02/09/25 11:29 UD PRN Back Pain Lorazepam 0.25 mg 01/12/25 19:49 01/13/25 05:31 Lorazepam 2 Mg/Ml Vial IVP 01/17/25 19:48 0.25 mg X1 PRN Administration anxiety Metoclopramide HCl 5 mg 01/03/25 10:40 01/08/25 07:53 Metoclopramide Inj 5 Mg/Ml Vial 2 Ml IVP 02/02/25 13:59 5 mg Q8HR PRN Administration NAUSEA OR VOMITING Protocol Ondansetron HCl 4 mg 12/25/24 21:56 01/13/25 08:39 Ondansetron Inj 2 Mg/Ml Inj 2 Ml IVP 01/24/25 21:55 4 mg Q6HR PRN Administration NAUSEA OR VOMITING Protocol Pantoprazole Sodium 40 mg 01/03/25 09:00 01/13/25 08:37 Pantoprazole 40 Mg Tablet PO 02/02/25 08:59 40 mg QDAY CHAPARRO Administration Protocol Polyethylene Glycol 17 gm 01/06/25 09:00 01/13/25 08:37 Polyethylene Glycol 17 Gm Packet PO 02/05/25 08:59 17 gm QDAY CHAPARRO Administration Scopolamine 1 mg 01/04/25 13:30 01/13/25 13:14 Scopolamine 1 Mg Tdsy TOP 02/03/25 13:29 1 mg Q3D CHAPARRO Administration Sertraline HCl 50 mg 12/23/24 09:00 01/13/25 08:38 Sertraline Hcl 25 Mg Tablet PO 01/22/25 08:59 50 mg QDAY CHAPARRO Administration Plan Mrs. Andrew is a 64-year-old female past medical significant of asthma, breast cancer s/p mastectomy 2017, thyroid cancer s/p thyroidectomy 2021 and radiation therapy, recently admitted for acute hypoxic respiratory failure secondary to right large pleural effusion discharged 11/20 presenting today 12/23 with similar complaint of SOB. #Acute hypoxic respiratory failure 2/2 #Left sided malignant pleural effusion 2/2 #Metastatic breast cancer, stage IV #Chronic Hydropneumothorax right lung, trapped lung #S/P Left Lung Biopsy #Status post chest tube placement 12/24/24, discontinued 01/01/25 #Asthma, by history On initial presentation patient speaking in short sentences oxygen saturation 86% on 5L nasal cannula. Recent admission of similar presentation revealed exudative effusion from malignant metastases. Patient established with oncology outpatient, was transferred out for decortication however no intervention was done because of stage IV breast cancer per patient. 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 Status post Left upper lobe lung mass pulmonary biopsy (12/27/2024). -Discussed the case with Oncology, Dr. Flowers. Lung biopsy confirms malignancy consistent with breast primary. Prognostic markers including ER/GA receptors and HER2/stevie results are still pending. -Chest tube was removed on 01/01 because it was leaking. -Patient's PET scan has been delayed to January 21, 2025 at 1:45 PM -Per oncology, the biopsy results of the lung showed dual metastasis of breast primary and papillary thyroid carcinoma. Receptors were negative ER/GA, negative HER2/Stevie and negative KI?67 15 to 20% positive. Second focus consistent with metastatic thyroid carcinoma IHC is pending for confirmation. PD-L1 was requested for possible immunotherapy. Her elevated TSH could be related to the metastic cancer problem. -01/07: Patient's O2 saturation decreased to 83%. Received thoracentesis draining ~770cc. CXR after thoracentesis showed reexpanded left lung. Was given IV lasix 40mg x1. Have discussed about the event and patient's status with oncologist, Dr. Flowers , Upon stabilization of patient's vitals, she will be discharged and received PleurX catheter at [facility] and follow-up with Dr. Li at [facility] in [place]. -Checks x-ray postthoracentesis on 01/07 showed some fluid in the right fissure. Per ICU recommendations, started on IV Lasix 40 mg and ordered echo. -Echo(01/07/2025) showed indeterminate diastolic function with ejection fraction 55 to 60% and RVSP 20 mmHg. Today patient showed +1 pitting edema on her bilateral leg. LV and RV size was normal and systolic function was also normal. - US 01/11 Mild to moderate right pleural fluid? - CXR 01/11 extensive bilateral pneumonia? - CXR 01/13 slightly worsened bilateral infiltrate, moderate left > right pleural effusion, small loculated right pneumothorax. Plan: - BiPAP HS - Repeat CXR -Will try to taper down and discontinue patient's high flow nasal cannula and to oxymask. Will need to do outpt pleurX catheter placement. -Started IV Lasix 40 mg twice daily. -Continue DuoNebs q6h, DuoNebs every 2 hours as needed -[place] 5 every 4 hours as needed, [place] 5 at night @2100 -Supplemental O2, titrate as tolerated to maintain SpO2 >93% -Incentive spirometry -Pulmonology consulted, appreciate recommendations. -Oncology consulted, appreciate recommendations #Hypothyroidism #Hx thyroid cancer s/p thyroidectomy 2021 No current active symptoms of hyperthyroid currently. TSH >100 free T4 0.86 Free T3 1.7 Patient's TSH level has been increasing. On admission, TSH 101.7 with free T4: 0.86. On 01/03, TSH>150 with free T4: 0.78. Patient's p.o. levothyroxine 125 mcg has been stopped. IV levothyroxine 125 mcg x 1 has been ordered on 01/04. Will continue to monitor her TSH level. Plan: -Increased levothyroxine dosage to 150 mcg/day. -Outpatient titration of medication #Dysphagia #Loss of Appetite -Sensation of food/medicine not going down, with epigastric chest discomfort on eating. -Difficulty removing phlegm. -Ddx: GERD, stictures, Mets to esophagus. -Swallow eval (01/01/2025): Any large pills should be crushed. Pt is independent in eating/swallowing using compensatory techniques and specific diet selections. No further swallow treatment servives warranted at this time. Plan: -Dronabinol PO 2.5mg x1 -Based on swallow evaluation, outpatient management is recommended. #Hx of pressure injury, coccyx, stage III Patient reports frequent back pain and it was noted that the patient had a possible pressure injury and her coccyx area. Per last admission, the wound staging is stage III without any drainage or order. Plan: -Referral to wound care -Continue to monitor #Depression - Continue home dose sertraline Health Maintenance: Code status: Full code DVT prophylaxis: Heparin every 12 hours GI prophylaxis: Protonix 40mg Diet: Regular diet M[place]: None Lines: PIV Supplemental O2: Nasal cannula Disposition: Tele This case was discussed with my attending physician, Dr. Rosales, and senior resident, Dr Prather. Even though this this note was carefully revised there may still be minor errors in sample shoe inspector and reworker due to voice recognition software. Ryan Xie, PGY I Attending Provider Attestation/Addendum I have seen and examined the patient. I was physically present for the shannon portions of the services provided including history, physical exam, diagnosis, treatment plans and orders. I agree with assessment and plan of care as documented by residents. Even though this this note was carefully revised there may still be minor errors in sample shoe inspector and reworker due to voice recognition software. Wiley Rosales MD
--- NOTE | 2025-01-13 16:58 | ESPR_ITS ---
Documentation for date of: 01/13/25 Subjective Subjective Interval history: CXR today shows possible worsening lung sesions. Pt @ 20 L HFNC Exam Vital Signs Temp Pulse Resp BP Pulse Ox O2 Del Method O2 Flow Rate 96.5 F L 62 16 118/68 100 High Flow Nasal Cannula 01/13/25 16:00 01/13/25 16:00 01/13/25 16:00 01/13/25 16:00 01/13/25 16:00 01/13/25 16:00 01/13/25 13:55 FiO2 30 01/13/25 13:55 Narrative Exam Appearing tired but comfortable Objective Labs 01/13/25 05:12 01/13/25 05:12 Labs: Laboratory Results - last 24 hr 01/13/25 05:12 WBC 17.6 H RBC 4.78 Hgb 13.8 Hct 43.2 MCV 90 MCH 28.9 MCHC 31.9 RDW Std Deviation 47.6 H Plt Count 383 Neut % (Auto) 66 Lymph % (Auto) 5 L [place] % (Auto) 9 Eos % (Auto) 19 H Baso % (Auto) 1 Neut # (Auto) 11.6 H Lymph # (Auto) 0.9 L [place] # (Auto) 1.6 H Eos # (Auto) 3.3 H Baso # (Auto) 0.1 Immature Gran # (Auto) 0.11 H Absolute Nucleated RBC 0.00 Immature Gran % 1 H Nucleated RBC % 0 Sodium 139 Potassium 3.6 D Chloride 94 L Carbon Dioxide 33.2 H Anion Gap 12 BUN 13 Creatinine 0.9 Estim Creat Clear Calc 68.7 eGFR > 60 BUN/Creatinine Ratio 14 Glucose 89 Calculated Osmolality 276 Calcium 8.7 Corrected Calcium 8.9 Phosphorus 4.4 Magnesium 2.0 Total Bilirubin 0.3 AST 23 ALT 11 Alkaline Phosphatase 99 Total Protein 6.1 Albumin 3.8 Globulin 2.3 Albumin/Globulin Ratio 1.7 Assessment & Plan A&P Narrative 1. History of early-stage right breast CA treated with bilateral mastectomy taking letrozole for receptor positive cancer since. 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 2. Lung biopsy performed 12/23/24 confirms malignancy consistent with breast primary. Triple negative for ER/[place] and HER2/claudio. PD-L1 was 70 for possible benefit of Keytruda immunotherapy. One would need both this along with aggressive chemo for the triple negative breast cancer alone. 3. Second. focus consistent with metastatic papillary thyroid carcinoma IHC pending for confirmation. This would make treatment even more difficult and complicated. Spoke with Dr Li, her med onc in [place] today scheduled to see her upon discharge. Made aware of pt's current guarded condition. Did not feel that transfer to [facility] would likely benefit pt - inpt chemo would be limited and unlikely to help pt unless she improves and can be treated as outpt. Inpt PET could not be done either. Pleural cath placement at [facility] was also made doubtful, 4. Will discuss with family about limited options and our goals of care in am. Time Spent With Patient Time: Total time spent is greater than 50% in coordination of care (as documented) at patient's floor/unit and/or counseling patient:
[2025-01-13] MEDS: LORazepam 2 MG/ML VIAL 0.5 MG IVP (21:58)
[2025-01-14] VITALS (16 sets, daily range): BP systolic 108–143; BP diastolic 68–87; PULSE 82–112; RESP 12–86; TEMP 35.9–36.2; O2SAT 92–96
[2025-01-14] MEDS: ALBUTEROL/IPRATROPIUM (Duoneb) RT SOL 3 ML NEBU INH ×3 (00:12→12:32)
[2025-01-14] MEDS: guaiFENesin/COD SYRUP 5 ML UDC 10 ML PO ×3 (04:32→14:13)
[2025-01-14] MEDS: LEVOTHYROXINE SODIUM 125 MCG, LEVOTHYROXINE SODIUM 25 MCG 150 MCG PO (05:21)
[2025-01-14] MEDS: FUROSEMIDE INJ 10 MG/ML 4ML VIAL 40 MG IVP (05:21)
[2025-01-14] MEDS: LACTULOSE SYRUP 20 GM/30 ML UDC PO ×2 (05:21→14:13)
[2025-01-14 05:56] LABS: Basophils # (Auto) 0.2 Thou/mm3 (0.0-0.2); Basophils % (Auto) 1 % (0-2.5); Eosinophils # (Auto) 3.5 Thou/mm3 (0.0-0.5); Eosinophils % (Auto) 21 % (0-10); Hematocrit 44.8 % (36.0-46.0); Hemoglobin 15.0 g/dL (12.0-16.0); Immature Granulocytes Auto 0.19 Thou/mm3 (0.00-0.00); Lymphocytes # (Auto) 0.9 Thou/mm3 (1.0-4.8); Lymphocytes % (Auto) 6 % (10-50); Mean Corpuscular HGB Conc 33.5 g/dl (31.0-37.0); Mean Corpuscular Hemoglobin 29.4 pg (25.0-35.0); Mean Corpuscular Volume 88 fL (80-100); Monocytes # (Auto) 1.6 Thou/mm3 (0.0-0.8); Monocytes % (Auto) 10 % (0-12); Neutrophils # (Auto) 9.9 Thou/mm3 (1.8-7.7); Neutrophils % (Auto) 61 % (37-80); Nucleated Red Blood Cell # 0.00 Thou/mm3 (0.00-0.00); Nucleated Red Blood Cell % 0 /100 WBC (0); Platelet Count 415 Thou/mm3 (140-440); RDW Standard Deviation 45.7 fL (36.4-46.3); Red Blood Count 5.11 Miln/mm3 (4.00-5.20); White Blood Count 16.3 Thou/mm3 (3.6-11.0)
[2025-01-14] MEDS: BUDESONIDE RT 0.25 MG/2 ML NEBU INH (06:05)
[2025-01-14 06:17] LABS: Anion Gap 13 (7-16); BUN/Creatinine Ratio 11 Ratio (12-20); Blood Urea Nitrogen 10 mg/dL (9-23); Calcium 8.6 mg/dL (8.3-10.6); Carbon Dioxide 27.8 mMol/L (20.0-31.0); Chloride 95 mMol/L (98-107); Creatinine (Component) 0.9 mg/dL (0.6-1.3); Estimated Creatinine Clearance 68.7 mL/min (>60); Glucose 82 mg/dL (74-106); Magnesium 1.9 mg/dL (1.6-2.6); Osmolality,Calculated 269 (275-295); Phosphorous 3.3 mg/dL (2.4-5.1); Potassium 4.0 mMol/L (3.4-5.1); Sodium 136 mMol/L (136-145); eGFR > 60 See Note
[2025-01-14 06:18] LABS: Alanine Aminotransferase 13 U/L (10-49); Albumin, Serum 3.9 gm/dL (3.4-4.8); Albumin/Globulin Ratio 1.6 (1.2-2.2); Alkaline Phosphatase 104 U/L (46-116); Aspartate Amino Transferase 31 U/L (0-34); Bilirubin,Total 0.4 mg/dL (0.3-1.2); Calcium (Corrected) 8.7 mg/dL (8.5-10.1); Globulin 2.5 gm/dL (2.3-3.5); Total Protein 6.4 gm/dL (5.7-8.2)
--- NOTE | 2025-01-14 06:41 | EKG_ITS ---
[facility] Test Date: 2025-01-14 Pat Name: LINWOOD CARR[facility]LL [facility] Pneumatic Tube Operator: ART : 1960 Requested By: Varsha Robertson Order Number: [id number] Reading MD: Varsha Robertson Measurements Intervals [place] Rate: 87 P: 22 MT: 126 QRS: -16 QRSD: 90 T: 30 QT: 376 QTc: 453 Interpretive Statements SINUS RHYTHM WITH OCCASIONAL VENTRICULAR PREMATURE COMPLEXES LOW QRS VOLTAGE IN PRECORDIAL LEADS POSSIBLE ANTERIOR MYOCARDIAL INFARCTION , PROBABLY OLD Compared to ECG 12/25/2024 21:39:01 Low QRS voltage now present Myocardial infarct finding now present Left-axis deviation no longer present T-wave abnormality no longer present /store/S0/[id number].pdf
[2025-01-14 06:50] LABS: CA 27.29* 44 U/mL (LESS THAN 38); Thyroglobulin 28.8 ng/mL
[2025-01-14] MEDS: DOCUSATE SOD 100 MG CAPSULE PO (08:21)
[2025-01-14] MEDS: PANTOPRAZOLE 40 MG TABLET PO (08:21)
[2025-01-14] MEDS: SERTRALINE HCL 25 MG TABLET 50 MG PO (08:21)
[2025-01-14] MEDS: POLYETHYLENE GLYCOL 17 GM PACKET PO (08:22)
[2025-01-14] MEDS: ONDANSETRON INJ 2 MG/ML INJ 2 ML 4 MG IVP ×2 (08:40→16:16)
--- NOTE | 2025-01-14 08:52 | PC.SS ---
Follow up note: Pt is on 18 liters of O2. Goals of care meeting today with family. Pt is possible d/c to [facility] once she is medically cleared and will require new insurance authorization.
[2025-01-14 09:04] LABS: Troponin I < 0.020 ng/mL (0.0-0.045)
[2025-01-14 10:00] LABS: Base Excess, Venous 9 (-3-3); O2 Saturation, Venous 90 % (96-97); PCO2, Venous 43 mmHg (36-56); PO2, Venous 51 mmHg (15-58); pH, Venous 7.50 (7.33-7.66)
[2025-01-14 10:16] LABS: INR 1.1 (0.9-1.3); Partial Thromboplastin Time 21.4 Seconds (22.0-36.0); Prothrombin Time 11.6 Seconds (9.0-12.2)
[2025-01-14] MEDS: LIDOCAINE 5% 1 PATCH TOP (10:18)
--- NOTE | 2025-01-14 10:45 | ESPR_ITS ---
<Statement entered by Nasreen Ramirez MD - 01/14/25 18:33> Patient was seen and examined at bedside. I agree on the assessment and plan on this note as documented by resident Dr Noé Henry DO PGY1. 64-year-old female with past medical history as below, admitted for bilateral pleural effusion had a prolonged hospitalization course, day 22 of hospitalization today. Patient continued to have worsening respiratory status despite multiple therapies, goals of care discussion held with family and patient today. Family and patient want to proceed with comfort focused treatment, patient started on comfort measures see event note for further details. Case discussed with attending Dr. Lindsay Noriega MD PGY-2 Documentation for date of: 01/14/25 Subjective Subjective Interval history: Patient 96% O2 saturation, currently on BiPAP. On IV Lasix 40 mg twice daily but her lower extremity edema is not improving. Had a goals of care discussion with her family today. Discussed about possibility of comfort care. On 15:30, 01/14/2025, Patient and Patient's family agreed on going Comfort Focused treatment. [Summary of patient, Linda Andrew] A 63-year-old female with a past medical history significant for asthma controlled with inhalers and Ellipta, right breast cancer status post bilateral mastectomy in 2017, and papillary/follicular thyroid carcinoma status post thyroidectomy in 2021 with both radioiodine and external beam radiation therapy, presented to the hospital due to worsening shortness of breath on 12/23/2024 and was admitted for acute hypoxic respiratory failure due to bilateral pleural effusion. Initially, patient presented to the emergency department on 11/06/2024 with a two week history of progressive shortness of breath, generalized weakness, chills, and worsening cough. Two weeks prior of 11/06, she had been evaluated by her primary care provider and was diagnosed with emphysema and treated with steroids and cetirizine without improvement. On repeat outpatient imaging, a significant right sided pleural effusion was noted, and she was advised to present to the hospital for further evaluation. The patient reported that imaging since June 2024 had demonstrated pulmonary ?spots,? and she had been referred for lung biopsy to [facility], though the consultation had been delayed. Prior CT chest with contrast performed on revealed at least 30 bilateral noncalcified pulmonary nodules, highly suspicious for metastatic disease. In the ED, CXR revealed complete opacification of the right hemithorax, and subsequent CT imaging demonstrated a massive right pleural effusion with complete atelectasis of the right lung, as well as enlarging metastatic pulmonary nodules in the left lung. A CT angiogram was negative for pulmonary embolism but confirmed complete right lung collapse due to massive pleural effusion. She was admitted for acute hypoxic respiratory failure secondary to large right malignant pleural effusion and associated pneumothorax. During the hospitalization on 11/06, she underwent right-sided thoracentesis with removal of approximately 2000 mL of pleural fluid and was treated with IV ceftriaxone as well as scheduled nebulized bronchodilators. Repeat imaging demonstrated reaccumulation of pleural fluid, and a second thoracentesis was performed on 11/08, removing an additional 1400 mL. Given failure of the right lung to re-expand, a right sided chest tube was placed under fluoroscopic guidance. Pleural fluid analysis demonstrated an exudative effusion, and cytology revealed malignant cells consistent with metastatic breast carcinoma. CT imaging of the abdomen and pelvis showed hydropneumothorax. Pulmonology recommended transfer to a higher level of care for consideration of surgical decortication in the setting of trapped lung and for further diagnostic evaluation. The patient was transferred to a tertiary facility, [facility] in [place], on 11/14. No surgical intervention was performed there, reportedly due to the extent of her metastatic disease. She was subsequently transferred back to the hospital on 11/17. During this period, chest tube output remained minimal, and ultrasound demonstrated persistent moderate right and minimal left pleural effusions. Consideration was given to placement of a tunneled pleural catheter, however, it was deferred due to suspected loculations and lack of a safe fluid pocket. An attempted thoracentesis on 11/20 was aborted due to the close proximity of the lung to the pleural surface. Her chest tube was removed without complication, and she was discharged on 11/20 with outpatient follow-up with oncology, pulmonology, and primary care. On 12/23/2024, the patient re-presented with worsening dyspnea due to progressive malignant pleural disease. CT angiogram at that time revealed a moderate to large left pleural effusion, a loculated right hydropneumothorax, right-sided pneumonia, and multiple metastatic pulmonary nodules. Lower extremity Doppler studies were negative for deep vein thrombosis. She was managed with bronchodilators, incentive spirometry, escalating oxygen support, and pain control. Bedside ultrasound confirmed significant left sided pleural effusion, and due to the inability to safely perform thoracentesis, a left sided chest tube was placed, draining approximately 1200 mL of fluid. She was treated with IV zosyn and IV doxycycline for presumed pneumonia, and her PO levothyroxine dosage was adjusted. Pleural fluid studies again demonstrated an exudative effusion, and cytology revealed adenocarcinoma. A CT guided biopsy of the left upper lobe lung lesion was performed, confirming metastatic carcinoma consistent with a breast primary. Subsequent pathology revealed dual metastatic disease from both breast cancer and papillary thyroid carcinoma, with tumor markers negative for ER/NH and HER2 and a Ki-67 of 15?20% positivity. Her thyroid function testing revealed a markedly elevated TSH greater than 150, and she was treated with IV levothyroxine. Throughout her prolonged hospitalization, the patient experienced persistent and recurrent hypoxic respiratory failure requiring alternating use of nasal cannula and high flow nasal cannula oxygen therapy. She underwent repeat thoracentesis on 01/07 with removal of approximately 770 mL of pleural fluid, which resulted in temporary lung re-expansion. She required repeated diuresis for volume overload, and aggressive symptom management for cough, dyspnea, pain, anxiety, and constipation. Attempts to perform pleurodesis and to place a tunneled pleural catheter were repeatedly deferred due to insufficient pleural fluid or clinical instability. An echocardiogram showed preserved left ventricular ejection fraction and no significant cardiac dysfunction contributing to her respiratory failure. Despite maximal medical management, the patient?s respiratory status progressively deteriorated in the setting of widespread metastatic breast and thyroid carcinoma with malignant pleural effusions and chronic right hydropneumothorax. On 01/14, after extensive discussions with her medical team and her family regarding prognosis and goals of care, the patient elected to transition to comfort-focused treatment. Her code status was changed to DNR/DNI in accordance with her wishes. She was started on a morphine infusion and received additional comfort medications including lorazepam, scopolamine, glycopyrrolate, and guaifenesin with codeine. Care was transitioned to a comfort-focused approach, and she was transferred to a [facility] for end-of-life care consistent with her expressed goals and family wishes. Exam Vital Signs Temp Pulse Resp BP Pulse Ox O2 Del Method O2 Flow Rate 96.6 F L 89 26 H 108/68 95 Humidified Nasal Cannula 01/14/25 08:00 01/14/25 09:49 01/14/25 09:49 01/14/25 08:00 01/14/25 09:49 01/14/25 08:00 01/14/25 08:00 FiO2 33 01/14/25 09:49 Narrative Exam General: No acute distress, well nourished, AAO x3 Eye: Normal conjunctiva, no scleral icterus HENT: Normocephalic, atraumatic, hearing intact to conversation at normal volume, moist oral mucosa Neck: Supple, non-tender, no JVD, no lymphadenopathy Lungs: Symmetric chest rise, No wheezing, rhonchi, crackles, Decreased breathe sounds in bilateral lung bases. Heart: Peripheral pulses intact bilaterally, Regular Rate and Rhythm. Abdomen: Soft, non-tender, non-distended, no palpable masses Musculoskeletal: Normal range of motion and strength, +1 pitting edema in BLE. Skin: Skin is warm, dry, no rashes or lesions. Psychiatric: Cooperative, appropriate mood and affect, Awake and alert, not agitated Neuro: Cranial nerves II-XII grossly intact. Strength 5/5 throughout. Sensations intact to light touch. Objective Labs 01/14/25 04:48 01/14/25 04:48 Labs: Laboratory Results - last 24 hr 01/08/25 01/14/25 01/14/25 11:12 04:48 08:01 WBC 16.3 H RBC 5.11 Hgb 15.0 Hct 44.8 MCV 88 MCH 29.4 MCHC 33.5 RDW Std Deviation 45.7 Plt Count 415 D Neut % (Auto) 61 Lymph % (Auto) 6 L [place] % (Auto) 10 Eos % (Auto) 21 H Baso % (Auto) 1 Neut # (Auto) 9.9 H Lymph # (Auto) 0.9 L [place] # (Auto) 1.6 H Eos # (Auto) 3.5 H Baso # (Auto) 0.2 Immature Gran # (Auto) 0.19 H Absolute Nucleated RBC 0.00 Immature Gran % 1 H Nucleated RBC % 0 PT INR APTT VBG pH VBG pCO2 VBG pO2 VBG O2 Sat (Maximus) VBG Base Excess Sodium 136 Potassium 4.0 Chloride 95 L Carbon Dioxide 27.8 Anion Gap 13 BUN 10 Creatinine 0.9 Estim Creat Clear Calc 68.7 eGFR > 60 BUN/Creatinine Ratio 11 L Glucose 82 Calculated Osmolality 269 L Calcium 8.6 Corrected Calcium 8.7 Phosphorus 3.3 Magnesium 1.9 Total Bilirubin 0.4 AST 31 ALT 13 Alkaline Phosphatase 104 Troponin I < 0.020 Total Protein 6.4 Albumin 3.9 Globulin 2.5 Albumin/Globulin Ratio 1.6 CA 27-29 44 H Thyroglobulin 28.8 Thyroglobulin Antibody <1 01/14/25 09:47 WBC RBC Hgb Hct MCV MCH MCHC RDW Std Deviation Plt Count Neut % (Auto) Lymph % (Auto) [place] % (Auto) Eos % (Auto) Baso % (Auto) Neut # (Auto) Lymph # (Auto) [place] # (Auto) Eos # (Auto) Baso # (Auto) Immature Gran # (Auto) Absolute Nucleated RBC Immature Gran % Nucleated RBC % PT 11.6 INR 1.1 APTT 21.4 L VBG pH 7.50 VBG pCO2 43 VBG pO2 51 VBG O2 Sat (Maximus) 90 L VBG Base Excess 9 H Sodium Potassium Chloride Carbon Dioxide Anion Gap BUN Creatinine Estim Creat Clear Calc eGFR BUN/Creatinine Ratio Glucose Calculated Osmolality Calcium Corrected Calcium Phosphorus Magnesium Total Bilirubin AST ALT Alkaline Phosphatase Troponin I Total Protein Albumin Globulin Albumin/Globulin Ratio CA 27-29 Thyroglobulin Thyroglobulin Antibody ABG Interpretation ABG results: 01/14/25 09:47 VBG pH 7.50 VBG pCO2 43 VBG pO2 51 VBG Base Excess 9 H Quality Measures Quality Measures VTE prophylaxis Advance care planning discussed with:: patient and other Assessment & Plan Assessment Current Active Medications: Generic Name Dose Route Start Last Admin Trade Name Freq PRN Reason Stop Dose Admin Acetaminophen 650 mg 12/23/24 05:49 Acetaminophen 325 Mg Tablet PO 01/22/25 05:48 Q6H PRN Fever >100.4 or pain 1-3 Hydrocodone Bitart/Acetaminophen 1 tab 12/30/24 21:00 01/13/25 21:18 Hydrocodone/Apap 5/325 Tablet PO 01/14/25 20:59 1 tab HS CHAPARRO Administration Albuterol/Ipratropium 3 ml 12/23/24 07:00 01/14/25 06:05 Albuterol/Ipratropium (Duoneb) Rt Zo 3 Ml Nebu INH 01/22/25 06:59 3 ml Q6HRRT CHAPARRO Administration Albuterol/Ipratropium 3 ml 12/30/24 03:46 01/13/25 21:32 Albuterol/Ipratropium (Duoneb) Rt Zo 3 Ml Nebu INH 01/29/25 03:45 3 ml Q2HR PRN Administration SHORTNESS OF BREATH OR WHEEZE Budesonide 0.25 mg 01/08/25 19:00 01/14/25 06:05 Budesonide Rt 0.25 Mg/2 Ml Nebu INH 02/07/25 18:59 0.25 mg BIDRT CHAPARRO Administration Docusate Sodium 100 mg 12/23/24 09:00 01/14/25 08:21 Docusate Sod 100 Mg Capsule PO 01/22/25 08:59 100 mg QDAY CHAPARRO Administration Protocol Dronabinol 2.5 mg 01/13/25 17:00 01/14/25 08:21 Dronabinol 2.5 Mg Capsule PO 02/12/25 16:59 2.5 mg BIDAC CHAPARRO Administration Furosemide 40 mg 01/12/25 12:45 01/14/25 05:21 Furosemide Inj 10 Mg/Ml 4ml Vial IVP 02/11/25 12:44 40 mg BIDD CHAPARRO Administration Guaifenesin/Codeine Phosphate 10 ml 01/02/25 16:22 01/14/25 08:28 Guaifenesin/Cod Syrup 5 Ml Udc PO 02/01/25 16:21 10 ml Q4HR PRN Administration COUGH Protocol Lactulose 20 gm 01/11/25 11:30 01/14/25 05:21 Lactulose Syrup 20 Gm/30 Ml Udc PO 02/10/25 11:29 20 gm TID CHAPARRO Administration Protocol Levothyroxine Sodium 125 mcg/ 150 mcg 01/06/25 06:00 01/14/25 05:21 Levothyroxine Sodium 25 mcg PO 02/05/25 05:59 150 mcg ACBR CHAPARRO Administration Lidocaine 1 patch 01/10/25 11:30 01/14/25 10:18 Lidocaine 5% 1 Patch TOP 02/09/25 11:29 1 patch UD PRN Administration Back Pain Lorazepam 0.25 mg 01/12/25 19:49 01/13/25 05:31 Lorazepam 2 Mg/Ml Vial IVP 01/17/25 19:48 0.25 mg X1 PRN Administration anxiety Metoclopramide HCl 5 mg 01/03/25 10:40 01/08/25 07:53 Metoclopramide Inj 5 Mg/Ml Vial 2 Ml IVP 02/02/25 13:59 5 mg Q8HR PRN Administration NAUSEA OR VOMITING Protocol Ondansetron HCl 4 mg 12/25/24 21:56 01/14/25 08:40 Ondansetron Inj 2 Mg/Ml Inj 2 Ml IVP 01/24/25 21:55 4 mg Q6HR PRN Administration NAUSEA OR VOMITING Protocol Pantoprazole Sodium 40 mg 01/03/25 09:00 01/14/25 08:21 Pantoprazole 40 Mg Tablet PO 02/02/25 08:59 40 mg QDAY CHAPARRO Administration Protocol Polyethylene Glycol 17 gm 01/06/25 09:00 01/14/25 08:22 Polyethylene Glycol 17 Gm Packet PO 02/05/25 08:59 17 gm QDAY CHAPARRO Administration Scopolamine 1 mg 01/04/25 13:30 01/13/25 13:14 Scopolamine 1 Mg Tdsy TOP 02/03/25 13:29 1 mg Q3D CHAPARRO Administration Sertraline HCl 50 mg 12/23/24 09:00 01/14/25 08:21 Sertraline Hcl 25 Mg Tablet PO 01/22/25 08:59 50 mg QDAY CHAPARRO Administration Plan Mrs. Andrew is a 64-year-old female past medical significant of asthma, breast cancer s/p mastectomy 2017, thyroid cancer s/p thyroidectomy 2021 and radiation therapy, recently admitted for acute hypoxic respiratory failure secondary to right large pleural effusion discharged 11/20 presenting today 12/23 with similar complaint of SOB. #Goals of care #Comfort focused treatment Family was explained regarding poor prognosis, worsening respiratory status despite multiple interventions throughout the prolonged hospital course of 22 days. Patient does have underlying chronic hydropneumothorax right lung for which she was unable to get VATS post transfer during her prior admission. During this admission Patient had chest tube placed and eventually plan was to place PleurX catheter however patient continued to have deteriorating and worsening respiratory function, patient and patient's family verbalized understanding regarding poor prognosis in setting of extensive metastatic breast and thyroid cancer. 01/14/2025 afternoon patient expressed her wish to proceed with comfort focused treatment and transition CODE STATUS to DNR/DNI. - Morphine drip - Morphine as needed for pain - Ativan as needed for anxiety - Zofran as needed for nausea/vomiting - Scopolamine patch as needed - Glycopyrrolate as needed for secretions - Benadryl as needed for itching - Continue high flow nasal cannula #Acute hypoxic respiratory failure 2/2 #Left sided malignant pleural effusion 2/2 #Metastatic breast cancer, stage IV #Chronic Hydropneumothorax right lung, trapped lung #S/P Left Lung Biopsy #Status post chest tube placement 12/24/24, discontinued 01/01/25 #Asthma, by history On initial presentation patient speaking in short sentences oxygen saturation 86% on 5L nasal cannula. Recent admission of similar presentation revealed exudative effusion from malignant metastases. Patient established with oncology outpatient, was transferred out for decortication however no intervention was done because of stage IV breast cancer per patient. 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 Status post Left upper lobe lung mass pulmonary biopsy (12/27/2024). -Discussed the case with Oncology, Dr. Flowers. Lung biopsy confirms malignancy consistent with breast primary. Prognostic markers including ER/NH receptors and HER2/stevie results are still pending. -Chest tube was removed on 01/01 because it was leaking. -Patient's PET scan has been delayed to January 21, 2025 at 1:45 PM -Per oncology, the biopsy results of the lung showed dual metastasis of breast primary and papillary thyroid carcinoma. Receptors were negative ER/NH, negative HER2/Stevie and negative KI?67 15 to 20% positive. Second focus consistent with metastatic thyroid carcinoma IHC is pending for confirmation. PD-L1 was requested for possible immunotherapy. Her elevated TSH could be related to the metastic cancer problem. -01/07: Patient's O2 saturation decreased to 83%. Received thoracentesis draining ~770cc. CXR after thoracentesis showed reexpanded left lung. Was given IV lasix 40mg x1. Have discussed about the event and patient's status with oncologist, Dr. Flowers , Upon stabilization of patient's vitals, she will be discharged and received PleurX catheter at [facility] and follow-up with Dr. Li at [facility] in [place]. -Checks x-ray postthoracentesis on 01/07 showed some fluid in the right fissure. Per ICU recommendations, started on IV Lasix 40 mg and ordered echo. -Echo(01/07/2025) showed indeterminate diastolic function with ejection fraction 55 to 60% and RVSP 20 mmHg. Today patient showed +1 pitting edema on her bilateral leg. LV and RV size was normal and systolic function was also normal. - US 01/11 Mild to moderate right pleural fluid? - CXR 01/11 extensive bilateral pneumonia? - CXR 01/13 slightly worsened bilateral infiltrate, moderate left > right pleural effusion, small loculated right pneumothorax. Plan: -Comfort focused treatment, as above #Hypothyroidism #Hx thyroid cancer s/p thyroidectomy 2021 No current active symptoms of hyperthyroid currently. TSH >100 free T4 0.86 Free T3 1.7 Patient's TSH level has been increasing. On admission, TSH 101.7 with free T4: 0.86. On 01/03, TSH>150 with free T4: 0.78. Patient's p.o. levothyroxine 125 mcg has been stopped. IV levothyroxine 125 mcg x 1 has been ordered on 01/04. Will continue to monitor her TSH level. Plan: -Comfort focused treatment as above #Dysphagia #Loss of Appetite -Sensation of food/medicine not going down, with epigastric chest discomfort on eating. -Difficulty removing phlegm. -Ddx: GERD, stictures, Mets to esophagus. -Swallow eval (01/01/2025): Any large pills should be crushed. Pt is independent in eating/swallowing using compensatory techniques and specific diet selections. No further swallow treatment servives warranted at this time. Plan: -Comfort focused treatment as above #Hx of pressure injury, coccyx, stage III Patient reports frequent back pain and it was noted that the patient had a possible pressure injury and her coccyx area. Per last admission, the wound staging is stage III without any drainage or order. Plan: -Comfort focused treatment as above #Depression - Continue home dose sertraline Health Maintenance: Code status: DNR/DNI, comfort focused treatment DVT prophylaxis: Comfort focused treatment GI prophylaxis: Comfort focused treatment Diet: Regular diet Mccallum: None Lines: PIV Supplemental O2: High flow nasal cannula Disposition: MedSurg Assessment and plan discussed with my attending physician Dr. Buck and Dr. Ramirez (PGY-2) Dr. Henry (PGY-1) - Internal medicine resident Attending Provider Attestation/Addendum Lindsay Mckeon DO, attest that I was physically present for the shannon portions of the service and evaluated the patient with the resident and I reviewed and discussed the case with the resident and agree with the resident's findings and plans of care as documented above Pt seen and evaluated this AM. Patient has had worsening respiratory failure, now requiring BiPap. Patient understanding that her condition has been progressively worse in the past week. Discussed with patient's son and daughter in law regarding goals of care. They are understanding of patient's lack of improvement and have verbalized that the patient would not want to be be placed on a ventilator if she were to continue to worsen. Son and daughter in law are leaning towards comfort care as per patient's wishes. However, they would like to have a meeting as a family with the patient before making that final decision. All questions and concerns were addressed to their satisfaction. Patient is to continue current management on BiPap until family makes final decision regarding comfort measures.
[2025-01-14 11:51] LABS: Eosinophils (Manual) 23 % (0-4); Lymphocytes (Manual) 2 % (20-44); Monocytes (Manual) 14 % (2-9); Neutrophils (Manual) 61 % (50-70)
--- NOTE | 2025-01-14 13:58 | PC.NURSE ---
Called DR Ramirez to get an update about the Pleurx Drain, Per we wont be doing the Pleurx drain today because they are still waiting to talk to family about procedure and care
[2025-01-14] MEDS: METOCLOPRAMIDE INJ 5 MG/ML VIAL 2 ML IVP (14:20)
--- NOTE | 2025-01-14 15:28 | PD.RESEVENT ---
Documentation for date of: 01/14/25 Event Note Event Note: Earlier this morning, family was explained regarding poor prognosis, worsening respiratory status despite multiple interventions throughout the prolonged hospital course of 22 days. Patient does have underlying chronic hydropneumothorax right lung for which she was unable to get VATS post transfer during her prior admission. During this admission Patient had chest tube placed and eventually plan was to place PleurX catheter however patient continued to have deteriorating and worsening respiratory function, patient and patient's family verbalized understanding regarding poor prognosis in setting of extensive metastatic breast and thyroid cancer. Later in the afternoon patient expressed her wish to proceed with comfort focused treatment and transition CODE STATUS to DNR/DNI. Patient's family at bedside ,Resident physician Dr. Crescencio ALFARO PGY-2 also present at bedside who confirmed the transition. We will respect patient and family's wishes. Patient started on morphine drip, as needed morphine/ativan/scopolamine/glycopyrrolate/guaifenesin?codeine. Patient will be downgraded to MedSurg, comfort focused treatment. Case discussed with Attending Physician Dr. Lindsay Noriega MD Internal Medicine PGY-2 Disclaimer: This note was dictated by speech recognition. Minor errors in laborer bituminous paving may be present due to voice recognition software.
[2025-01-14] MEDS: Morphine IV Drip 100mg/100ml 100 ML IV (15:53)
[2025-01-14] MEDS: GLYCOPYRROLATE INJ 0.2 MG/ML VIAL IV (16:24)
[2025-01-14] MEDS: MORPHINE SULF INJ 4 MG/ML VIAL 2 MG IVP (16:59)
[2025-01-14] MEDS: LORazepam 2 MG/ML VIAL 1 MG IVP (18:17)
[2025-01-15] VITALS (11 sets, daily range): BP systolic 102–138; BP diastolic 65–88; PULSE 81–105; RESP 13–32; TEMP 35.9–37; O2SAT 91–98; BMI 25.0
[2025-01-15] MEDS: SERTRALINE HCL 25 MG TABLET 50 MG PO (09:16)
[2025-01-15] MEDS: MORPHINE SULF INJ 4 MG/ML VIAL 2 MG IVP ×2 (12:15→20:12)
--- NOTE | 2025-01-15 14:24 | ESPR_ITS ---
<Statement entered by Wolf Prather MD - 01/15/25 16:10> Patient seen and examined at bedside. I discussed and supervised with the spring intern physician who took care of this patient. I personally saw and examined the patient. I agree with most of the assessment and plan. Plan of care discussed with attending Dr. Buck. Wolf Prather MD PGY-2 Documentation for date of: 01/15/25 Subjective Subjective Interval history: Patient currently on Comfort care. 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 Initially, patient presented to the emergency department on 11/06/2024 with a two week history of progressive shortness of breath, generalized weakness, chills, and worsening cough. Two weeks prior of 11/06, she had been evaluated by her primary care provider and was diagnosed with emphysema and treated with steroids and cetirizine without improvement. On repeat outpatient imaging, a significant right sided pleural effusion was noted, and she was advised to present to the hospital for further evaluation. The patient reported that imaging since June 2024 had demonstrated pulmonary ?spots,? and she had been referred for lung biopsy to [facility], though the consultation had been delayed. Prior CT chest with contrast performed on revealed at least 30 bilateral noncalcified pulmonary nodules, highly suspicious for metastatic disease. In the ED, CXR revealed complete opacification of the right hemithorax, and subsequent CT imaging demonstrated a massive right pleural effusion with complete atelectasis of the right lung, as well as enlarging metastatic pulmonary nodules in the left lung. A CT angiogram was negative for pulmonary embolism but confirmed complete right lung collapse due to massive pleural effusion. She was admitted for acute hypoxic respiratory failure secondary to large right malignant pleural effusion and associated pneumothorax. During the hospitalization on 11/06, she underwent right-sided thoracentesis with removal of approximately 2000 mL of pleural fluid and was treated with IV ceftriaxone as well as scheduled nebulized bronchodilators. Repeat imaging demonstrated reaccumulation of pleural fluid, and a second thoracentesis was performed on 11/08, removing an additional 1400 mL. Given failure of the right lung to re-expand, a right sided chest tube was placed under fluoroscopic guidance. Pleural fluid analysis demonstrated an exudative effusion, and cytology revealed malignant cells consistent with metastatic breast carcinoma. CT imaging of the abdomen and pelvis showed hydropneumothorax. Pulmonology recommended transfer to a higher level of care for consideration of surgical decortication in the setting of trapped lung and for further diagnostic evaluation. The patient was transferred to a tertiary facility, [facility] in [place], on 11/14. No surgical intervention was performed there, reportedly due to the extent of her metastatic disease. She was subsequently transferred back to the hospital on 11/17. During this period, chest tube output remained minimal, and ultrasound demonstrated persistent moderate right and minimal left pleural effusions. Consideration was given to placement of a tunneled pleural catheter, however, it was deferred due to suspected loculations and lack of a safe fluid pocket. An attempted thoracentesis on 11/20 was aborted due to the close proximity of the lung to the pleural surface. Her chest tube was removed without complication, and she was discharged on 11/20 with outpatient follow-up with oncology, pulmonology, and primary care. On 12/23/2024, the patient re-presented with worsening dyspnea due to progressive malignant pleural disease. CT angiogram at that time revealed a moderate to large left pleural effusion, a loculated right hydropneumothorax, right-sided pneumonia, and multiple metastatic pulmonary nodules. Lower extremity Doppler studies were negative for deep vein thrombosis. She was managed with bronchodilators, incentive spirometry, escalating oxygen support, and pain control. Bedside ultrasound confirmed significant left sided pleural effusion, and due to the inability to safely perform thoracentesis, a left sided chest tube was placed, draining approximately 1200 mL of fluid. She was treated with IV zosyn and IV doxycycline for presumed pneumonia, and her PO levothyroxine dosage was adjusted. Pleural fluid studies again demonstrated an exudative effusion, and cytology revealed adenocarcinoma. A CT guided biopsy of the left upper lobe lung lesion was performed, confirming metastatic carcinoma consistent with a breast primary. Subsequent pathology revealed dual metastatic disease from both breast cancer and papillary thyroid carcinoma, with tumor markers negative for ER/IL and HER2 and a Ki-67 of 15?20% positivity. Her thyroid function testing revealed a markedly elevated TSH greater than 150, and she was treated with IV levothyroxine. Throughout her prolonged hospitalization, the patient experienced persistent and recurrent hypoxic respiratory failure requiring alternating use of nasal cannula and high flow nasal cannula oxygen therapy. She underwent repeat thoracentesis on 01/07 with removal of approximately 770 mL of pleural fluid, which resulted in temporary lung re-expansion. She required repeated diuresis for volume overload, and aggressive symptom management for cough, dyspnea, pain, anxiety, and constipation. Attempts to perform pleurodesis and to place a tunneled pleural catheter were repeatedly deferred due to insufficient pleural fluid or clinical instability. An echocardiogram showed preserved left ventricular ejection fraction and no significant cardiac dysfunction contributing to her respiratory failure. Despite maximal medical management, the patient?s respiratory status progressively deteriorated in the setting of widespread metastatic breast and thyroid carcinoma with malignant pleural effusions and chronic right hydropneumothorax. On 01/14, after extensive discussions with her medical team and her family regarding prognosis and goals of care, the patient elected to transition to comfort-focused treatment. Her code status was changed to DNR/DNI in accordance with her wishes. She was started on a morphine infusion and received additional comfort medications including lorazepam, scopolamine, glycopyrrolate, and guaifenesin with codeine. Care was transitioned to a comfort-focused approach, and she was transferred to a [facility] for end-of-life care consistent with her expressed goals and family wishes. Exam Vital Signs Temp Pulse Resp BP Pulse Ox O2 Del Method O2 Flow Rate 97.0 F 83 14 116/88 H 98 High Flow Nasal Cannula 6 01/15/25 12:00 01/15/25 12:00 01/15/25 12:00 01/15/25 12:00 01/15/25 12:00 01/15/25 12:00 01/15/25 12:00 FiO2 60 01/15/25 12:00 Narrative Exam General: No acute distress, well nourished, AAO x3 Eye: Normal conjunctiva, no scleral icterus HENT: Normocephalic, atraumatic, hearing intact to conversation at normal volume, moist oral mucosa Neck: Supple, non-tender, no JVD, no lymphadenopathy Lungs: Symmetric chest rise, No wheezing, rhonchi, crackles, Decreased breathe sounds in bilateral lung bases. Heart: Peripheral pulses intact bilaterally, Regular Rate and Rhythm. Abdomen: Soft, non-tender, non-distended, no palpable masses Musculoskeletal: Normal range of motion and strength, +1 pitting edema in BLE. Skin: Skin is warm, dry, no rashes or lesions. Psychiatric: Cooperative, appropriate mood and affect, Awake and alert, not agitated Neuro: Cranial nerves II-XII grossly intact. Strength 5/5 throughout. Sensations intact to light touch. Objective Labs 01/14/25 04:48 01/14/25 04:48 ABG Interpretation ABG results: 01/14/25 09:47 VBG pH 7.50 VBG pCO2 43 VBG pO2 51 VBG Base Excess 9 H Quality Measures Quality Measures VTE prophylaxis Advance care planning discussed with:: patient and other Assessment & Plan Assessment Current Active Medications: Generic Name Dose Route Start Last Admin Trade Name Freq PRN Reason Stop Dose Admin Albuterol/Ipratropium 3 ml 12/30/24 03:46 01/13/25 21:32 Albuterol/Ipratropium (Duoneb) Rt Zo 3 Ml Nebu INH 01/29/25 03:45 3 ml Q2HR PRN Administration SHORTNESS OF BREATH OR WHEEZE Diphenhydramine HCl 25 mg 01/14/25 15:29 Diphenhydramine Inj 50 Mg/Ml Vial IVP 02/13/25 15:28 Q6HR PRN ITCHING Glycopyrrolate 0.2 mg 01/14/25 15:29 01/14/25 16:24 Glycopyrrolate Inj 0.2 Mg/Ml Vial IV 02/13/25 15:28 0.2 mg QID PRN Administration As needed for secretions Guaifenesin/Codeine Phosphate 10 ml 01/02/25 16:22 01/14/25 14:13 Guaifenesin/Cod Syrup 5 Ml Udc PO 02/01/25 16:21 10 ml Q4HR PRN Administration COUGH Protocol Morphine Sulfate 100 mls @ 1 mls/hr 01/14/25 15:29 01/14/25 15:53 Morphine Sulfate Iv Drip 100mg/100ml IV 01/19/25 15:28 1 mg/hr .Q24H PRN 1 mls/hr PAIN (COMFORT CARE) Administration Protocol 1 MG/HR Lidocaine 1 patch 01/10/25 11:30 01/14/25 10:18 Lidocaine 5% 1 Patch TOP 02/09/25 11:29 1 patch UD PRN Administration Back Pain Lorazepam 1 mg 01/14/25 15:29 01/14/25 18:17 Lorazepam 2 Mg/Ml Vial IVP 01/19/25 15:28 1 mg Q6HR PRN Administration ANXIETY Morphine Sulfate 2 mg 01/14/25 15:29 01/15/25 12:15 Morphine Sulf Inj 4 Mg/Ml Vial IVP 01/19/25 15:28 2 mg Q30M PRN Administration PAIN Ondansetron HCl 4 mg 12/25/24 21:56 01/14/25 16:16 Ondansetron Inj 2 Mg/Ml Inj 2 Ml IVP 01/24/25 21:55 4 mg Q6HR PRN Administration NAUSEA OR VOMITING Protocol Sertraline HCl 50 mg 12/23/24 09:00 01/15/25 09:16 Sertraline Hcl 25 Mg Tablet PO 01/22/25 08:59 50 mg QDAY CHAPARRO Administration Plan Mrs. Andrew is a 64-year-old female past medical significant of asthma, breast cancer s/p mastectomy 2017, thyroid cancer s/p thyroidectomy 2021 and radiation therapy, recently admitted for acute hypoxic respiratory failure secondary to right large pleural effusion discharged 11/20 presenting today 12/23 with similar complaint of SOB. #Goals of care #Comfort focused treatment Family was explained regarding poor prognosis, worsening respiratory status despite multiple interventions throughout the prolonged hospital course of 22 days. Patient does have underlying chronic hydropneumothorax right lung for which she was unable to get VATS post transfer during her prior admission. During this admission Patient had chest tube placed and eventually plan was to place PleurX catheter however patient continued to have deteriorating and worsening respiratory function, patient and patient's family verbalized understanding regarding poor prognosis in setting of extensive metastatic breast and thyroid cancer. 01/14/2025 afternoon patient expressed her wish to proceed with comfort focused treatment and transition CODE STATUS to DNR/DNI. - Morphine drip - Morphine as needed for pain - Ativan as needed for anxiety - Zofran as needed for nausea/vomiting - Scopolamine patch as needed - Glycopyrrolate as needed for secretions - Benadryl as needed for itching - Continue high flow nasal cannula #Acute hypoxic respiratory failure 2/2 #Left sided malignant pleural effusion 2/2 #Metastatic breast cancer, stage IV #Chronic Hydropneumothorax right lung, trapped lung #S/P Left Lung Biopsy #Status post chest tube placement 12/24/24, discontinued 01/01/25 #Asthma, by history On initial presentation patient speaking in short sentences oxygen saturation 86% on 5L nasal cannula. Recent admission of similar presentation revealed exudative effusion from malignant metastases. Patient established with oncology outpatient, was transferred out for decortication however no intervention was done because of stage IV breast cancer per patient. 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 Status post Left upper lobe lung mass pulmonary biopsy (12/27/2024). -Discussed the case with Oncology, Dr. Flowers. Lung biopsy confirms malignancy consistent with breast primary. Prognostic markers including ER/IL receptors and HER2/stevie results are still pending. -Chest tube was removed on 01/01 because it was leaking. -Patient's PET scan has been delayed to January 21, 2025 at 1:45 PM -Per oncology, the biopsy results of the lung showed dual metastasis of breast primary and papillary thyroid carcinoma. Receptors were negative ER/IL, negative HER2/Stevie and negative KI?67 15 to 20% positive. Second focus consistent with metastatic thyroid carcinoma IHC is pending for confirmation. PD-L1 was requested for possible immunotherapy. Her elevated TSH could be related to the metastic cancer problem. -01/07: Patient's O2 saturation decreased to 83%. Received thoracentesis draining ~770cc. CXR after thoracentesis showed reexpanded left lung. Was given IV lasix 40mg x1. Have discussed about the event and patient's status with oncologist, Dr. Flowers , Upon stabilization of patient's vitals, she will be discharged and received PleurX catheter at [facility] and follow-up with Dr. Li at [facility] in [place]. -Checks x-ray postthoracentesis on 01/07 showed some fluid in the right fissure. Per ICU recommendations, started on IV Lasix 40 mg and ordered echo. -Echo(01/07/2025) showed indeterminate diastolic function with ejection fraction 55 to 60% and RVSP 20 mmHg. Today patient showed +1 pitting edema on her bilateral leg. LV and RV size was normal and systolic function was also normal. - US 01/11 Mild to moderate right pleural fluid? - CXR 01/11 extensive bilateral pneumonia? - CXR 01/13 slightly worsened bilateral infiltrate, moderate left > right pleural effusion, small loculated right pneumothorax. Plan: -Comfort focused treatment, as above #Hypothyroidism #Hx thyroid cancer s/p thyroidectomy 2021 No current active symptoms of hyperthyroid currently. TSH >100 free T4 0.86 Free T3 1.7 Patient's TSH level has been increasing. On admission, TSH 101.7 with free T4: 0.86. On 01/03, TSH>150 with free T4: 0.78. Patient's p.o. levothyroxine 125 mcg has been stopped. IV levothyroxine 125 mcg x 1 has been ordered on 01/04. Will continue to monitor her TSH level. Plan: -Comfort focused treatment as above #Dysphagia #Loss of Appetite -Sensation of food/medicine not going down, with epigastric chest discomfort on eating. -Difficulty removing phlegm. -Ddx: GERD, stictures, Mets to esophagus. -Swallow eval (01/01/2025): Any large pills should be crushed. Pt is independent in eating/swallowing using compensatory techniques and specific diet selections. No further swallow treatment servives warranted at this time. Plan: -Comfort focused treatment as above #Hx of pressure injury, coccyx, stage III Patient reports frequent back pain and it was noted that the patient had a possible pressure injury and her coccyx area. Per last admission, the wound staging is stage III without any drainage or order. Plan: -Comfort focused treatment as above #Depression - Continue home dose sertraline Health Maintenance: Code status: DNR/DNI, comfort focused treatment DVT prophylaxis: Comfort focused treatment GI prophylaxis: Comfort focused treatment Diet: Regular diet Mccallum: None Lines: PIV Supplemental O2: High flow nasal cannula Disposition: MedSurg Assessment and plan discussed with my attending physician Dr. Buck and Dr. Ramirez (PGY-2) Dr. Henry (PGY-1) - Internal medicine resident Attending Provider Attestation/Addendum Lindsay Mckeon, DO, attest that I was physically present for the shannon portions of the service and evaluated the patient with the resident and I reviewed and discussed the case with the resident and agree with the resident's findings and plans of care as documented above Continue with comfort measures. Family to decide on hospice at SNF or home.
[2025-01-15] MEDS: Morphine IV Drip 100mg/100ml 100 ML IV (16:51)
[2025-01-15] MEDS: ALBUTEROL/IPRATROPIUM (Duoneb) RT SOL 3 ML NEBU INH ×2 (17:15→20:14)
[2025-01-15] MEDS: guaiFENesin/COD SYRUP 5 ML UDC 10 ML PO (20:12)
[2025-01-16] MEDS: MORPHINE SULF INJ 4 MG/ML VIAL 2 MG IVP ×5 (00:17→21:49)
[2025-01-16] MEDS: ONDANSETRON INJ 2 MG/ML INJ 2 ML 4 MG IVP ×2 (00:18→09:06)
[2025-01-16] MEDS: LORazepam 2 MG/ML VIAL 1 MG IVP (02:50)
--- NOTE | 2025-01-16 03:24 | PC.RT ---
Spoke with Dr. muro about comfort care measures and he stated to remain keeping sats 88-92% on the 6L Hnc along with prn treatments and to defer to day team.
[2025-01-16 06:00] VITALS: BMI 25.0
[2025-01-16 07:31] VITALS: BP 148/88; PULSE 92; RESP 20; TEMP 36.1; O2SAT 92
--- NOTE | 2025-01-16 07:38 | CHAP ---
Patient was visited by a Spiritual Care Volunteer on 01/15/2025 between 0900 and 1200 and received comfort, encouragement and/or prayer.
--- NOTE | 2025-01-16 07:50 | CHAP ---
Patient was visited by a Spiritual Care Volunteer on 01/15/2025 between 1530 and 1850 and received comfort, encouragement and/or prayer. Patient also received a blessing on infant and family.
--- NOTE | 2025-01-16 08:04 | ESPR_ITS ---
Documentation for date of: 01/16/25 Subjective Subjective Interval history: Patient now in room 372 receiving comfort measures. Exam Vital Signs Temp Pulse Resp BP Pulse Ox O2 Del Method O2 Flow Rate 97.0 F 92 20 148/88 H 92 L Nasal Cannula 6 01/16/25 07:31 01/16/25 07:31 01/16/25 07:31 01/16/25 07:31 01/16/25 07:31 01/16/25 07:31 01/16/25 07:31 FiO2 60 01/15/25 16:00 Narrative Exam Appears comfortable. and son in room. Objective Labs 01/14/25 04:48 01/14/25 04:48 ABG Interpretation ABG results: 01/14/25 09:47 VBG pH 7.50 VBG pCO2 43 VBG pO2 51 VBG Base Excess 9 H Assessment & Plan A&P Narrative 1. History of breast CA treated with bilateral mastectomy taking letrozole for receptor positive cancer since. 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 2. Lung biopsy performed 12/23/24 confirms malignancy consistent with breast primary, and likely also thyroid. Imaging studies indicate extensive involvement of the lung and likely elsewhere. Triple negative for ER/IN and HER2/claudio. PD-L1 was 70 . One would need both immunotherapy along with aggressive chemo for the triple negative breast cancer. Also the presence of thyroid mets in lung would make treatment more challenging. 3. Medical oncologist, Dr. Li, [facility] scheduled to see her recommended comfort measures versus chemo and immunotherapy which would be difficult to tolerate and unlikely to be helpful to pt. 4. Comfort measures helping patient. Family has expressed gratitude to all involved in her care. Time Spent With Patient Time: Total time spent is greater than 50% in coordination of care (as documented) at patient's floor/unit and/or counseling patient:
[2025-01-16] MEDS: SERTRALINE HCL 25 MG TABLET 50 MG PO (08:59)
--- NOTE | 2025-01-16 09:00 | PC.SS ---
Follow up note: Pt is on comfort care.
--- NOTE | 2025-01-16 11:02 | CHAP ---
Spent about 20 minutes with patients son in hallway, listening and giving comfort and then spent time with patient and prayed with her and held her hand.
--- NOTE | 2025-01-16 13:06 | PC.SS ---
SS met with son and spoke to dtr in [place] phone# [phone] by phone regarding pt returning home with [facility]osp[facility]. SS provided son with brochures for [facility], [facility], [facility], [facility], [facility], and [facility]. SS also provided son with [facility] which contains Hospice's phone#. Family is requesting a hospital bed, commode, wheelchair, side table, and home O2. Family is attempting to arrange their home to accommodate pt.
[2025-01-16 15:42] VITALS: BP 147/79; PULSE 87; RESP 22; TEMP 36.1; O2SAT 92
[2025-01-16] MEDS: Morphine IV Drip 100mg/100ml 100 ML IV (16:48)
--- NOTE | 2025-01-16 18:20 | ESPR_ITS ---
<Statement entered by Nasreen Ramirez MD - 01/16/25 21:06> Patient was seen and examined at bedside. I agree on the assessment and plan on this note as documented by resident Dr Noé Henry DO PGY1. 64-year-old female with past medical history as below admitted for acute hypoxic respiratory failure secondary to bilateral pleural effusions had a prolonged hospital course, goals of care discussion held with family and patient started on comfort focused treatment 01/14/2025. Patient is comfortable, no current complaints. Case discussed with attending Dr. Lindsay Noriega MD PGY-2 Documentation for date of: 01/16/25 Subjective Subjective Interval history: Patient currently on Comfort care. 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 Initially, patient presented to the emergency department on 11/06/2024 with a two week history of progressive shortness of breath, generalized weakness, chills, and worsening cough. Two weeks prior of 11/06, she had been evaluated by her primary care provider and was diagnosed with emphysema and treated with steroids and cetirizine without improvement. On repeat outpatient imaging, a significant right sided pleural effusion was noted, and she was advised to present to the hospital for further evaluation. The patient reported that imaging since June 2024 had demonstrated pulmonary ?spots,? and she had been referred for lung biopsy to [facility], though the consultation had been delayed. Prior CT chest with contrast performed on revealed at least 30 bilateral noncalcified pulmonary nodules, highly suspicious for metastatic disease. In the ED, CXR revealed complete opacification of the right hemithorax, and subsequent CT imaging demonstrated a massive right pleural effusion with complete atelectasis of the right lung, as well as enlarging metastatic pulmonary nodules in the left lung. A CT angiogram was negative for pulmonary embolism but confirmed complete right lung collapse due to massive pleural effusion. She was admitted for acute hypoxic respiratory failure secondary to large right malignant pleural effusion and associated pneumothorax. During the hospitalization on 11/06, she underwent right-sided thoracentesis with removal of approximately 2000 mL of pleural fluid and was treated with IV ceftriaxone as well as scheduled nebulized bronchodilators. Repeat imaging demonstrated reaccumulation of pleural fluid, and a second thoracentesis was performed on 11/08, removing an additional 1400 mL. Given failure of the right lung to re-expand, a right sided chest tube was placed under fluoroscopic guidance. Pleural fluid analysis demonstrated an exudative effusion, and cytology revealed malignant cells consistent with metastatic breast carcinoma. CT imaging of the abdomen and pelvis showed hydropneumothorax. Pulmonology recommended transfer to a higher level of care for consideration of surgical decortication in the setting of trapped lung and for further diagnostic evaluation. The patient was transferred to a tertiary facility, [facility] in [place], on 11/14. No surgical intervention was performed there, reportedly due to the extent of her metastatic disease. She was subsequently transferred back to the hospital on 11/17. During this period, chest tube output remained minimal, and ultrasound demonstrated persistent moderate right and minimal left pleural effusions. Consideration was given to placement of a tunneled pleural catheter, however, it was deferred due to suspected loculations and lack of a safe fluid pocket. An attempted thoracentesis on 11/20 was aborted due to the close proximity of the lung to the pleural surface. Her chest tube was removed without complication, and she was discharged on 11/20 with outpatient follow-up with oncology, pulmonology, and primary care. On 12/23/2024, the patient re-presented with worsening dyspnea due to progressive malignant pleural disease. CT angiogram at that time revealed a moderate to large left pleural effusion, a loculated right hydropneumothorax, right-sided pneumonia, and multiple metastatic pulmonary nodules. Lower extremity Doppler studies were negative for deep vein thrombosis. She was managed with bronchodilators, incentive spirometry, escalating oxygen support, and pain control. Bedside ultrasound confirmed significant left sided pleural effusion, and due to the inability to safely perform thoracentesis, a left sided chest tube was placed, draining approximately 1200 mL of fluid. She was treated with IV zosyn and IV doxycycline for presumed pneumonia, and her PO levothyroxine dosage was adjusted. Pleural fluid studies again demonstrated an exudative effusion, and cytology revealed adenocarcinoma. A CT guided biopsy of the left upper lobe lung lesion was performed, confirming metastatic carcinoma consistent with a breast primary. Subsequent pathology revealed dual metastatic disease from both breast cancer and papillary thyroid carcinoma, with tumor markers negative for ER/NH and HER2 and a Ki-67 of 15?20% positivity. Her thyroid function testing revealed a markedly elevated TSH greater than 150, and she was treated with IV levothyroxine. Throughout her prolonged hospitalization, the patient experienced persistent and recurrent hypoxic respiratory failure requiring alternating use of nasal cannula and high flow nasal cannula oxygen therapy. She underwent repeat thoracentesis on 01/07 with removal of approximately 770 mL of pleural fluid, which resulted in temporary lung re-expansion. She required repeated diuresis for volume overload, and aggressive symptom management for cough, dyspnea, pain, anxiety, and constipation. Attempts to perform pleurodesis and to place a tunneled pleural catheter were repeatedly deferred due to insufficient pleural fluid or clinical instability. An echocardiogram showed preserved left ventricular ejection fraction and no significant cardiac dysfunction contributing to her respiratory failure. Despite maximal medical management, the patient?s respiratory status progressively deteriorated in the setting of widespread metastatic breast and thyroid carcinoma with malignant pleural effusions and chronic right hydropneumothorax. On 01/14, after extensive discussions with her medical team and her family regarding prognosis and goals of care, the patient elected to transition to comfort-focused treatment. Her code status was changed to DNR/DNI in accordance with her wishes. She was started on a morphine infusion and received additional comfort medications including lorazepam, scopolamine, glycopyrrolate, and guaifenesin with codeine. Care was transitioned to a comfort-focused approach, and she was transferred to a [facility] for end-of-life care consistent with her expressed goals and family wishes. Exam Vital Signs Temp Pulse Resp BP Pulse Ox O2 Del Method O2 Flow Rate 97.0 F 87 22 H 147/79 H 92 L Nasal Cannula 6 01/16/25 15:42 01/16/25 15:42 01/16/25 15:42 01/16/25 15:42 01/16/25 15:42 01/16/25 15:42 01/16/25 15:42 FiO2 60 01/15/25 16:00 Narrative Exam General: No acute distress, well nourished, AAO x3 Eye: Normal conjunctiva, no scleral icterus HENT: Normocephalic, atraumatic, hearing intact to conversation at normal volume, moist oral mucosa Neck: Supple, non-tender, no JVD, no lymphadenopathy Lungs: Symmetric chest rise, No wheezing, rhonchi, crackles, Decreased breathe sounds in bilateral lung bases. Heart: Peripheral pulses intact bilaterally, Regular Rate and Rhythm. Abdomen: Soft, non-tender, non-distended, no palpable masses Musculoskeletal: Normal range of motion and strength, +1 pitting edema in BLE. Skin: Skin is warm, dry, no rashes or lesions. Psychiatric: Cooperative, appropriate mood and affect, Awake and alert, not agitated Neuro: Cranial nerves II-XII grossly intact. Strength 5/5 throughout. Sensations intact to light touch. Objective Labs 01/14/25 04:48 01/14/25 04:48 ABG Interpretation ABG results: 01/14/25 09:47 VBG pH 7.50 VBG pCO2 43 VBG pO2 51 VBG Base Excess 9 H Quality Measures Quality Measures VTE prophylaxis Advance care planning discussed with:: patient and other Assessment & Plan Assessment Current Active Medications: Generic Name Dose Route Start Last Admin Trade Name Freq PRN Reason Stop Dose Admin Albuterol/Ipratropium 3 ml 12/30/24 03:46 01/15/25 20:14 Albuterol/Ipratropium (Duoneb) Rt Zo 3 Ml Nebu INH 01/29/25 03:45 3 ml Q2HR PRN Administration SHORTNESS OF BREATH OR WHEEZE Diphenhydramine HCl 25 mg 01/14/25 15:29 Diphenhydramine Inj 50 Mg/Ml Vial IVP 02/13/25 15:28 Q6HR PRN ITCHING Glycopyrrolate 0.2 mg 01/14/25 15:29 01/14/25 16:24 Glycopyrrolate Inj 0.2 Mg/Ml Vial IV 02/13/25 15:28 0.2 mg QID PRN Administration As needed for secretions Guaifenesin/Codeine Phosphate 10 ml 01/02/25 16:22 01/15/25 20:12 Guaifenesin/Cod Syrup 5 Ml Udc PO 02/01/25 16:21 10 ml Q4HR PRN Administration COUGH Protocol Morphine Sulfate 100 mls @ 1 mls/hr 01/14/25 15:29 01/16/25 16:48 Morphine Sulfate Iv Drip 100mg/100ml IV 01/19/25 15:28 1 mg/hr .Q24H PRN 1 mls/hr PAIN (COMFORT CARE) Administration Protocol 1 MG/HR Lidocaine 1 patch 01/10/25 11:30 01/14/25 10:18 Lidocaine 5% 1 Patch TOP 02/09/25 11:29 1 patch UD PRN Administration Back Pain Protocol Lorazepam 1 mg 01/14/25 15:29 01/16/25 02:50 Lorazepam 2 Mg/Ml Vial IVP 01/19/25 15:28 1 mg Q6HR PRN Administration ANXIETY Morphine Sulfate 2 mg 01/14/25 15:29 01/16/25 09:16 Morphine Sulf Inj 4 Mg/Ml Vial IVP 01/19/25 15:28 2 mg Q30M PRN Administration PAIN Ondansetron HCl 4 mg 12/25/24 21:56 01/16/25 09:06 Ondansetron Inj 2 Mg/Ml Inj 2 Ml IVP 01/24/25 21:55 4 mg Q6HR PRN Administration NAUSEA OR VOMITING Protocol Sertraline HCl 50 mg 12/23/24 09:00 01/16/25 08:59 Sertraline Hcl 25 Mg Tablet PO 01/22/25 08:59 50 mg QDAY CHAPARRO Administration Plan Mrs. Andrew is a 64-year-old female past medical significant of asthma, breast cancer s/p mastectomy 2017, thyroid cancer s/p thyroidectomy 2021 and radiation therapy, recently admitted for acute hypoxic respiratory failure secondary to right large pleural effusion discharged 11/20 presenting today 12/23 with similar complaint of SOB. #Goals of care #Comfort focused treatment Family was explained regarding poor prognosis, worsening respiratory status despite multiple interventions throughout the prolonged hospital course of 22 days. Patient does have underlying chronic hydropneumothorax right lung for which she was unable to get VATS post transfer during her prior admission. During this admission Patient had chest tube placed and eventually plan was to place PleurX catheter however patient continued to have deteriorating and worsening respiratory function, patient and patient's family verbalized understanding regarding poor prognosis in setting of extensive metastatic breast and thyroid cancer. 01/14/2025 afternoon patient expressed her wish to proceed with comfort focused treatment and transition CODE STATUS to DNR/DNI. - Morphine drip - Morphine as needed for pain - Ativan as needed for anxiety - Zofran as needed for nausea/vomiting - Scopolamine patch as needed - Glycopyrrolate as needed for secretions - Benadryl as needed for itching - Continue high flow nasal cannula #Acute hypoxic respiratory failure 2/2 #Left sided malignant pleural effusion 2/2 #Metastatic breast cancer, stage IV #Chronic Hydropneumothorax right lung, trapped lung #S/P Left Lung Biopsy #Status post chest tube placement 12/24/24, discontinued 01/01/25 #Asthma, by history On initial presentation patient speaking in short sentences oxygen saturation 86% on 5L nasal cannula. Recent admission of similar presentation revealed exudative effusion from malignant metastases. Patient established with oncology outpatient, was transferred out for decortication however no intervention was done because of stage IV breast cancer per patient. 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 Status post Left upper lobe lung mass pulmonary biopsy (12/27/2024). -Discussed the case with Oncology, Dr. Flowers. Lung biopsy confirms malignancy consistent with breast primary. Prognostic markers including ER/NH receptors and HER2/stevie results are still pending. -Chest tube was removed on 01/01 because it was leaking. -Patient's PET scan has been delayed to January 21, 2025 at 1:45 PM -Per oncology, the biopsy results of the lung showed dual metastasis of breast primary and papillary thyroid carcinoma. Receptors were negative ER/NH, negative HER2/Stevie and negative KI?67 15 to 20% positive. Second focus consistent with metastatic thyroid carcinoma IHC is pending for confirmation. PD-L1 was requested for possible immunotherapy. Her elevated TSH could be related to the metastic cancer problem. -01/07: Patient's O2 saturation decreased to 83%. Received thoracentesis draining ~770cc. CXR after thoracentesis showed reexpanded left lung. Was given IV lasix 40mg x1. Have discussed about the event and patient's status with oncologist, Dr. Flowers , Upon stabilization of patient's vitals, she will be discharged and received PleurX catheter at [facility] and follow-up with Dr. Li at [facility] in [place]. -Checks x-ray postthoracentesis on 01/07 showed some fluid in the right fissure. Per ICU recommendations, started on IV Lasix 40 mg and ordered echo. -Echo(01/07/2025) showed indeterminate diastolic function with ejection fraction 55 to 60% and RVSP 20 mmHg. Today patient showed +1 pitting edema on her bilateral leg. LV and RV size was normal and systolic function was also normal. - US 01/11 Mild to moderate right pleural fluid? - CXR 01/11 extensive bilateral pneumonia? - CXR 01/13 slightly worsened bilateral infiltrate, moderate left > right pleural effusion, small loculated right pneumothorax. Plan: -Comfort focused treatment, as above #Hypothyroidism #Hx thyroid cancer s/p thyroidectomy 2021 No current active symptoms of hyperthyroid currently. TSH >100 free T4 0.86 Free T3 1.7 Patient's TSH level has been increasing. On admission, TSH 101.7 with free T4: 0.86. On 01/03, TSH>150 with free T4: 0.78. Patient's p.o. levothyroxine 125 mcg has been stopped. IV levothyroxine 125 mcg x 1 has been ordered on 01/04. Will continue to monitor her TSH level. Plan: -Comfort focused treatment as above #Dysphagia #Loss of Appetite -Sensation of food/medicine not going down, with epigastric chest discomfort on eating. -Difficulty removing phlegm. -Ddx: GERD, stictures, Mets to esophagus. -Swallow eval (01/01/2025): Any large pills should be crushed. Pt is independent in eating/swallowing using compensatory techniques and specific diet selections. No further swallow treatment servives warranted at this time. Plan: -Comfort focused treatment as above #Hx of pressure injury, coccyx, stage III Patient reports frequent back pain and it was noted that the patient had a possible pressure injury and her coccyx area. Per last admission, the wound staging is stage III without any drainage or order. Plan: -Comfort focused treatment as above #Depression - Continue home dose sertraline Health Maintenance: Code status: DNR/DNI, comfort focused treatment DVT prophylaxis: Comfort focused treatment GI prophylaxis: Comfort focused treatment Diet: Regular diet Mccallum: None Lines: PIV Supplemental O2: High flow nasal cannula Disposition: [facility] Assessment and plan discussed with my attending physician Dr. Buck and Dr. Ramirez (PGY-2) Dr. Henry (PGY-1) - Internal medicine resident Attending Provider Attestation/Addendum I, Lindsay Buck DO, attest that I was physically present for the shannon portions of the service and evaluated the patient with the resident and I reviewed and discussed the case with the resident and agree with the resident's findings and plans of care as documented above Patient resting comfortably with father at bedside. Discussed with son and daughter in law over the phone options of hospice at home versus SNF. They stated that the patient had expressed that she wants to remain in the hospital. Her home is not ideal or ready to accommodate her. However, they will discuss amongst the family regarding these possible arrangements. Family has spoken with social media content manager this AM.
[2025-01-16] MEDS: ALBUTEROL/IPRATROPIUM (Duoneb) RT SOL 3 ML NEBU INH (21:50)
[2025-01-16 22:07] VITALS: PULSE 93; PULSE 98; RESP 18; RESP 22; O2SAT 94; O2SAT 95
[2025-01-17 00:44] VITALS: BP 114/91; PULSE 93; RESP 18; TEMP 36.1; O2SAT 91
[2025-01-17] MEDS: MORPHINE SULF INJ 4 MG/ML VIAL 2 MG IVP ×6 (01:18→17:16)
[2025-01-17] MEDS: ALBUTEROL/IPRATROPIUM (Duoneb) RT SOL 3 ML NEBU INH (01:30)
[2025-01-17 01:31] VITALS: PULSE 92; RESP 20; O2SAT 93
[2025-01-17] MEDS: LORazepam 2 MG/ML VIAL 1 MG IVP ×2 (01:49→07:26)
--- NOTE | 2025-01-17 02:41 | PC.NURSE ---
patient currently on comfort care and on morphine drip IV 1mg/hr. Patient given 2 doses IVP morphine bolus within 2 hours, but per patient does not want to increase morphine drip rate per protocol, wants to stay at the 1mg/hr. Family at bedside aware, Notified and states patient ccan keep on current infusion rate and will let the day team know. No other new orders received.
[2025-01-17 06:00] VITALS: BMI 25.0
[2025-01-17 07:35] VITALS: BP 156/103; PULSE 112; RESP 24; TEMP 36.1; O2SAT 86
[2025-01-17] MEDS: SERTRALINE HCL 25 MG TABLET 50 MG PO (08:56)
--- NOTE | 2025-01-17 11:20 | PC.NURSE ---
Spoke to son Mt and he is still not ready to increase the morphine drip. He wants mother to be able to speak with a few more family members. When he and his mom are ready to increase the drip they will immediately let me know.
--- NOTE | 2025-01-17 15:51 | PC.NURSE ---
Son asked for paint mixer to come and see his mother. Loom Operator came in and talked to patient and family.
--- NOTE | 2025-01-17 16:18 | ESPR_ITS ---
<Statement entered by Nasreen Ramirez MD - 01/17/25 21:14> Patient was seen and examined at bedside. I agree on the assessment and plan on this note as documented by resident Dr Noé Henry DO PGY1. 64-year-old female with past medical history as below admitted for acute hypoxic respiratory failure secondary to bilateral pleural effusions had prolonged hospital course was eventually transition to comfort focused treatment. Patient on morphine gtt. and morphine pushes as needed, appears comfortable. Talk to son and at bedside, continue with comfort focused treatment. Case discussed with attending Dr. Lindsay Noriega MD PGY-2 Documentation for date of: 01/17/25 Subjective Subjective Interval history: Patient currently on Comfort care. 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 Initially, patient presented to the emergency department on 11/06/2024 with a two week history of progressive shortness of breath, generalized weakness, chills, and worsening cough. Two weeks prior of 11/06, she had been evaluated by her primary care provider and was diagnosed with emphysema and treated with steroids and cetirizine without improvement. On repeat outpatient imaging, a significant right sided pleural effusion was noted, and she was advised to present to the hospital for further evaluation. The patient reported that imaging since June 2024 had demonstrated pulmonary ?spots,? and she had been referred for lung biopsy to [facility], though the consultation had been delayed. Prior CT chest with contrast performed on revealed at least 30 bilateral noncalcified pulmonary nodules, highly suspicious for metastatic disease. In the ED, CXR revealed complete opacification of the right hemithorax, and subsequent CT imaging demonstrated a massive right pleural effusion with complete atelectasis of the right lung, as well as enlarging metastatic pulmonary nodules in the left lung. A CT angiogram was negative for pulmonary embolism but confirmed complete right lung collapse due to massive pleural effusion. She was admitted for acute hypoxic respiratory failure secondary to large right malignant pleural effusion and associated pneumothorax. During the hospitalization on 11/06, she underwent right-sided thoracentesis with removal of approximately 2000 mL of pleural fluid and was treated with IV ceftriaxone as well as scheduled nebulized bronchodilators. Repeat imaging demonstrated reaccumulation of pleural fluid, and a second thoracentesis was performed on 11/08, removing an additional 1400 mL. Given failure of the right lung to re-expand, a right sided chest tube was placed under fluoroscopic guidance. Pleural fluid analysis demonstrated an exudative effusion, and cytology revealed malignant cells consistent with metastatic breast carcinoma. CT imaging of the abdomen and pelvis showed hydropneumothorax. Pulmonology recommended transfer to a higher level of care for consideration of surgical decortication in the setting of trapped lung and for further diagnostic evaluation. The patient was transferred to a tertiary facility, [facility] in [place], on 11/14. No surgical intervention was performed there, reportedly due to the extent of her metastatic disease. She was subsequently transferred back to the hospital on 11/17. During this period, chest tube output remained minimal, and ultrasound demonstrated persistent moderate right and minimal left pleural effusions. Consideration was given to placement of a tunneled pleural catheter, however, it was deferred due to suspected loculations and lack of a safe fluid pocket. An attempted thoracentesis on 11/20 was aborted due to the close proximity of the lung to the pleural surface. Her chest tube was removed without complication, and she was discharged on 11/20 with outpatient follow-up with oncology, pulmonology, and primary care. On 12/23/2024, the patient re-presented with worsening dyspnea due to progressive malignant pleural disease. CT angiogram at that time revealed a moderate to large left pleural effusion, a loculated right hydropneumothorax, right-sided pneumonia, and multiple metastatic pulmonary nodules. Lower extremity Doppler studies were negative for deep vein thrombosis. She was managed with bronchodilators, incentive spirometry, escalating oxygen support, and pain control. Bedside ultrasound confirmed significant left sided pleural effusion, and due to the inability to safely perform thoracentesis, a left sided chest tube was placed, draining approximately 1200 mL of fluid. She was treated with IV zosyn and IV doxycycline for presumed pneumonia, and her PO levothyroxine dosage was adjusted. Pleural fluid studies again demonstrated an exudative effusion, and cytology revealed adenocarcinoma. A CT guided biopsy of the left upper lobe lung lesion was performed, confirming metastatic carcinoma consistent with a breast primary. Subsequent pathology revealed dual metastatic disease from both breast cancer and papillary thyroid carcinoma, with tumor markers negative for ER/NJ and HER2 and a Ki-67 of 15?20% positivity. Her thyroid function testing revealed a markedly elevated TSH greater than 150, and she was treated with IV levothyroxine. Throughout her prolonged hospitalization, the patient experienced persistent and recurrent hypoxic respiratory failure requiring alternating use of nasal cannula and high flow nasal cannula oxygen therapy. She underwent repeat thoracentesis on 01/07 with removal of approximately 770 mL of pleural fluid, which resulted in temporary lung re-expansion. She required repeated diuresis for volume overload, and aggressive symptom management for cough, dyspnea, pain, anxiety, and constipation. Attempts to perform pleurodesis and to place a tunneled pleural catheter were repeatedly deferred due to insufficient pleural fluid or clinical instability. An echocardiogram showed preserved left ventricular ejection fraction and no significant cardiac dysfunction contributing to her respiratory failure. Despite maximal medical management, the patient?s respiratory status progressively deteriorated in the setting of widespread metastatic breast and thyroid carcinoma with malignant pleural effusions and chronic right hydropneumothorax. On 01/14, after extensive discussions with her medical team and her family regarding prognosis and goals of care, the patient elected to transition to comfort-focused treatment. Her code status was changed to DNR/DNI in accordance with her wishes. She was started on a morphine infusion and received additional comfort medications including lorazepam, scopolamine, glycopyrrolate, and guaifenesin with codeine. Care was transitioned to a comfort-focused approach, and she was transferred to a [facility] for end-of-life care consistent with her expressed goals and family wishes. Exam Vital Signs Temp Pulse Resp BP Pulse Ox O2 Del Method O2 Flow Rate 97.0 F 112 H 24 H 156/103 H 86 L Oxy Mask 6 01/17/25 07:35 01/17/25 07:35 01/17/25 07:35 01/17/25 07:35 01/17/25 07:35 01/17/25 07:35 01/17/25 07:35 FiO2 60 01/15/25 16:00 Narrative Exam General: No acute distress, well nourished, AAO x3 Eye: Normal conjunctiva, no scleral icterus HENT: Normocephalic, atraumatic, hearing intact to conversation at normal volume, moist oral mucosa Neck: Supple, non-tender, no JVD, no lymphadenopathy Lungs: Symmetric chest rise, No wheezing, rhonchi, crackles, Decreased breathe sounds in bilateral lung bases. Heart: Peripheral pulses intact bilaterally, Regular Rate and Rhythm. Abdomen: Soft, non-tender, non-distended, no palpable masses Musculoskeletal: Normal range of motion and strength, +1 pitting edema in BLE. Skin: Skin is warm, dry, no rashes or lesions. Psychiatric: Cooperative, appropriate mood and affect, Awake and alert, not agitated Neuro: Cranial nerves II-XII grossly intact. Strength 5/5 throughout. Sensations intact to light touch. Objective Labs 01/14/25 04:48 01/14/25 04:48 ABG Interpretation ABG results: 01/14/25 09:47 VBG pH 7.50 VBG pCO2 43 VBG pO2 51 VBG Base Excess 9 H Quality Measures Quality Measures VTE prophylaxis Advance care planning discussed with:: patient and other Assessment & Plan Assessment Current Active Medications: Generic Name Dose Route Start Last Admin Trade Name Freq PRN Reason Stop Dose Admin Albuterol/Ipratropium 3 ml 12/30/24 03:46 01/17/25 01:30 Albuterol/Ipratropium (Duoneb) Rt Zo 3 Ml Nebu INH 01/29/25 03:45 3 ml Q2HR PRN Administration SHORTNESS OF BREATH OR WHEEZE Diphenhydramine HCl 25 mg 01/14/25 15:29 Diphenhydramine Inj 50 Mg/Ml Vial IVP 02/13/25 15:28 Q6HR PRN ITCHING Glycopyrrolate 0.2 mg 01/14/25 15:29 01/14/25 16:24 Glycopyrrolate Inj 0.2 Mg/Ml Vial IV 02/13/25 15:28 0.2 mg QID PRN Administration As needed for secretions Guaifenesin/Codeine Phosphate 10 ml 01/02/25 16:22 01/15/25 20:12 Guaifenesin/Cod Syrup 5 Ml Udc PO 02/01/25 16:21 10 ml Q4HR PRN Administration COUGH Protocol Morphine Sulfate 100 mls @ 1 mls/hr 01/14/25 15:29 01/16/25 16:48 Morphine Sulfate Iv Drip 100mg/100ml IV 01/19/25 15:28 1 mg/hr .Q24H PRN 1 mls/hr PAIN (COMFORT CARE) Administration Protocol 1 MG/HR Lidocaine 1 patch 01/10/25 11:30 01/14/25 10:18 Lidocaine 5% 1 Patch TOP 02/09/25 11:29 1 patch UD PRN Administration Back Pain Protocol Lorazepam 1 mg 01/14/25 15:29 01/17/25 07:26 Lorazepam 2 Mg/Ml Vial IVP 01/19/25 15:28 1 mg Q6HR PRN Administration ANXIETY Morphine Sulfate 2 mg 01/14/25 15:29 01/17/25 08:51 Morphine Sulf Inj 4 Mg/Ml Vial IVP 01/19/25 15:28 2 mg Q30M PRN Administration PAIN Ondansetron HCl 4 mg 12/25/24 21:56 01/16/25 09:06 Ondansetron Inj 2 Mg/Ml Inj 2 Ml IVP 01/24/25 21:55 4 mg Q6HR PRN Administration NAUSEA OR VOMITING Protocol Sertraline HCl 50 mg 12/23/24 09:00 01/17/25 08:56 Sertraline Hcl 25 Mg Tablet PO 01/22/25 08:59 50 mg QDAY CHAPARRO Administration Plan Mrs. Andrew is a 64-year-old female past medical significant of asthma, breast cancer s/p mastectomy 2017, thyroid cancer s/p thyroidectomy 2021 and radiation therapy, recently admitted for acute hypoxic respiratory failure secondary to right large pleural effusion discharged 11/20 presenting today 12/23 with similar complaint of SOB. #Goals of care #Comfort focused treatment Family was explained regarding poor prognosis, worsening respiratory status despite multiple interventions throughout the prolonged hospital course of 22 days. Patient does have underlying chronic hydropneumothorax right lung for which she was unable to get VATS post transfer during her prior admission. During this admission Patient had chest tube placed and eventually plan was to place PleurX catheter however patient continued to have deteriorating and worsening respiratory function, patient and patient's family verbalized understanding regarding poor prognosis in setting of extensive metastatic breast and thyroid cancer. 01/14/2025 afternoon patient expressed her wish to proceed with comfort focused treatment and transition CODE STATUS to DNR/DNI. - Morphine drip - Morphine as needed for pain - Ativan as needed for anxiety - Zofran as needed for nausea/vomiting - Scopolamine patch as needed - Glycopyrrolate as needed for secretions - Benadryl as needed for itching - Continue high flow nasal cannula #Acute hypoxic respiratory failure 2/2 #Left sided malignant pleural effusion 2/2 #Metastatic breast cancer, stage IV #Chronic Hydropneumothorax right lung, trapped lung #S/P Left Lung Biopsy #Status post chest tube placement 12/24/24, discontinued 01/01/25 #Asthma, by history On initial presentation patient speaking in short sentences oxygen saturation 86% on 5L nasal cannula. Recent admission of similar presentation revealed exudative effusion from malignant metastases. Patient established with oncology outpatient, was transferred out for decortication however no intervention was done because of stage IV breast cancer per patient. 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 Status post Left upper lobe lung mass pulmonary biopsy (12/27/2024). -Discussed the case with Oncology, Dr. Flowers. Lung biopsy confirms malignancy consistent with breast primary. Prognostic markers including ER/NJ receptors and HER2/stevie results are still pending. -Chest tube was removed on 01/01 because it was leaking. -Patient's PET scan has been delayed to January 21, 2025 at 1:45 PM -Per oncology, the biopsy results of the lung showed dual metastasis of breast primary and papillary thyroid carcinoma. Receptors were negative ER/NJ, negative HER2/Stevie and negative KI?67 15 to 20% positive. Second focus consistent with metastatic thyroid carcinoma IHC is pending for confirmation. PD-L1 was requested for possible immunotherapy. Her elevated TSH could be related to the metastic cancer problem. -01/07: Patient's O2 saturation decreased to 83%. Received thoracentesis draining ~770cc. CXR after thoracentesis showed reexpanded left lung. Was given IV lasix 40mg x1. Have discussed about the event and patient's status with oncologist, Dr. Flowers , Upon stabilization of patient's vitals, she will be discharged and received PleurX catheter at [facility] and follow-up with Dr. Li at [facility] in [place]. -Checks x-ray postthoracentesis on 01/07 showed some fluid in the right fissure. Per ICU recommendations, started on IV Lasix 40 mg and ordered echo. -Echo(01/07/2025) showed indeterminate diastolic function with ejection fraction 55 to 60% and RVSP 20 mmHg. Today patient showed +1 pitting edema on her bilateral leg. LV and RV size was normal and systolic function was also normal. - US 01/11 Mild to moderate right pleural fluid? - CXR 01/11 extensive bilateral pneumonia? - CXR 01/13 slightly worsened bilateral infiltrate, moderate left > right pleural effusion, small loculated right pneumothorax. Plan: -Comfort focused treatment, as above #Hypothyroidism #Hx thyroid cancer s/p thyroidectomy 2021 No current active symptoms of hyperthyroid currently. TSH >100 free T4 0.86 Free T3 1.7 Patient's TSH level has been increasing. On admission, TSH 101.7 with free T4: 0.86. On 01/03, TSH>150 with free T4: 0.78. Patient's p.o. levothyroxine 125 mcg has been stopped. IV levothyroxine 125 mcg x 1 has been ordered on 01/04. Will continue to monitor her TSH level. Plan: -Comfort focused treatment as above #Dysphagia #Loss of Appetite -Sensation of food/medicine not going down, with epigastric chest discomfort on eating. -Difficulty removing phlegm. -Ddx: GERD, stictures, Mets to esophagus. -Swallow eval (01/01/2025): Any large pills should be crushed. Pt is independent in eating/swallowing using compensatory techniques and specific diet selections. No further swallow treatment servives warranted at this time. Plan: -Comfort focused treatment as above #Hx of pressure injury, coccyx, stage III Patient reports frequent back pain and it was noted that the patient had a possible pressure injury and her coccyx area. Per last admission, the wound staging is stage III without any drainage or order. Plan: -Comfort focused treatment as above #Depression - Continue home dose sertraline Health Maintenance: Code status: DNR/DNI, comfort focused treatment DVT prophylaxis: Comfort focused treatment GI prophylaxis: Comfort focused treatment Diet: Regular diet Mccallum: None Lines: PIV Supplemental O2: High flow nasal cannula Disposition: [facility]Sur Assessment and plan discussed with my attending physician Dr. Buck and Dr. Ramirez (PGY-2) Dr. Henry (PGY-1) - Internal medicine resident Attending Provider Attestation/Addendum I, Lindsay Buck DO, attest that I was physically present for the shannon portions of the service and evaluated the patient with the resident and I reviewed and discussed the case with the resident and agree with the resident's findings and plans of care as documented above Patient seen and evaluated this AM. Patient appeared to use more accessory muscles with breathing at rest. She remains on comfort care and titrate morphine to comfort. All questions and concerns addressed at bedside with patient's son and daughter in law.
[2025-01-17] MEDS: guaiFENesin/COD SYRUP 5 ML UDC 10 ML PO (17:10)
--- NOTE | 2025-01-17 17:32 | PC.NURSE ---
Called Dr. Ramirez and notified him that patients son Mt and not agreeing on many things about patient care. I took patient her robitussin and she swallowed it slowly. Patients gives her drinks of water and she started coughing. I educated patiens family on the risk of asperation. The then asked me to give patient morphine I asked patient she said yes. I gave patient her morphine. Son came out and followed me to the nurses station requesting the morphine drip to be increased. He then called Johana which is the patients daughter in law that has advanced directives on patient. I told son Mt and daughter in law I could not face time. She needed to call me so we could talk about patients care plan. Dr. Ramirez is aware of the current situation if she has anymore question she can talk to Dr. Ramirez. Patient is NPO as of this time.
[2025-01-17 19:18] VITALS: BP 138/79; PULSE 103; RESP 20; O2SAT 91
[2025-01-17 19:26] VITALS: O2SAT 93
[2025-01-17 19:30] VITALS: BP 138/79; PULSE 103; PULSE 106; RESP 20; O2SAT 91
--- NOTE | 2025-01-17 19:33 | PD.RESEVENT ---
Documentation for date of: 01/17/25 Event Note Event Note: Rapid response called as patient appeared to be in respiratory distress. Currently on comfort care, however family noted that patient appeared to look like she was dying per and prompted RR. At bedside, patient was on nasal cannula and did not appear to be in distress. Spoke to patient and she was oriented to self, place, and year and stated that she understands that she is end-of-life care and explained that per protocol morphine is typically increased. She expressed understanding and agreed to increase morphine drip. Son, , and nursing staff were all present at bedside and showed understanding of the situation. ----- Plan discussed with attending physician Dr. Javi Rashid MD PGY-2 Internal Medicine
[2025-01-18 02:50] VITALS: PULSE 92; RESP 20; O2SAT 95
[2025-01-18] MEDS: ALBUTEROL/IPRATROPIUM (Duoneb) RT SOL 3 ML NEBU INH ×2 (02:50→07:59)
[2025-01-18 07:05] VITALS: PULSE 85; RESP 16; TEMP 36.4; O2SAT 94
[2025-01-18] MEDS: guaiFENesin/COD SYRUP 5 ML UDC 10 ML PO (07:10)
[2025-01-18 07:59] VITALS: PULSE 85; PULSE 87; RESP 24; O2SAT 93; O2SAT 96
--- NOTE | 2025-01-18 08:49 | PC.SS ---
Follow up note: On comfort care. Morphin drip has been increased.
[2025-01-18] MEDS: SERTRALINE HCL 25 MG TABLET 50 MG PO (08:57)
--- NOTE | 2025-01-18 10:45 | CHAP ---
Patient was visited by the Spiritual Care Volunteer who prayed for them. (Volunteer was in the hospital from 09:30-10:45)
[2025-01-18] MEDS: MORPHINE SULF INJ 4 MG/ML VIAL 2 MG IVP ×3 (12:26→22:48)
--- NOTE | 2025-01-18 13:09 | ESPR_ITS ---
Documentation for date of: 01/18/25 Subjective Subjective Interval history: Patient seen at bedside Patient on comfort measures Some dispute within family overnight, after discussing with primary decision maker morphine gtt. increased to 2. Patient appears comfortable. Exam Vital Signs Temp Pulse Resp BP Pulse Ox O2 Del Method O2 Flow Rate 97.6 F 85 16 138/79 H 94 L Nasal Cannula 6 01/18/25 07:05 01/18/25 07:05 01/18/25 07:05 01/17/25 19:30 01/18/25 07:05 01/18/25 07:05 01/18/25 07:05 FiO2 60 01/15/25 16:00 Narrative Exam General: No acute distress, well nourished, AAO x3 Eye: Normal conjunctiva, no scleral icterus HENT: Normocephalic, atraumatic, hearing intact to conversation at normal volume, moist oral mucosa Neck: Supple, non-tender, no JVD, no lymphadenopathy Lungs: Symmetric chest rise, No wheezing, rhonchi, crackles, Decreased breathe sounds in bilateral lung bases. Heart: Peripheral pulses intact bilaterally, Regular Rate and Rhythm. Abdomen: Soft, non-tender, non-distended, no palpable masses Musculoskeletal: Normal range of motion and strength, +1 pitting edema in BLE. Skin: Skin is warm, dry, no rashes or lesions. Psychiatric: Cooperative, appropriate mood and affect, Awake and alert, not agitated Neuro: Cranial nerves II-XII grossly intact. Strength 5/5 throughout. Sensations intact to light touch. Objective Labs 01/14/25 04:48 01/14/25 04:48 ABG Interpretation ABG results: 01/14/25 09:47 VBG pH 7.50 VBG pCO2 43 VBG pO2 51 VBG Base Excess 9 H Quality Measures Quality Measures VTE prophylaxis Advance care planning discussed with:: patient Assessment & Plan Assessment Current Active Medications: Generic Name Dose Route Start Last Admin Trade Name Freq PRN Reason Stop Dose Admin Albuterol/Ipratropium 3 ml 12/30/24 03:46 01/18/25 02:50 Albuterol/Ipratropium (Duoneb) Rt Zo 3 Ml Nebu INH 01/29/25 03:45 3 ml Q2HR PRN Administration SHORTNESS OF BREATH OR WHEEZE Diphenhydramine HCl 25 mg 01/14/25 15:29 Diphenhydramine Inj 50 Mg/Ml Vial IVP 02/13/25 15:28 Q6HR PRN ITCHING Glycopyrrolate 0.2 mg 01/14/25 15:29 01/14/25 16:24 Glycopyrrolate Inj 0.2 Mg/Ml Vial IV 02/13/25 15:28 0.2 mg QID PRN Administration As needed for secretions Guaifenesin/Codeine Phosphate 10 ml 01/02/25 16:22 01/18/25 07:10 Guaifenesin/Cod Syrup 5 Ml Udc PO 02/01/25 16:21 10 ml Q4HR PRN Administration COUGH Protocol Morphine Sulfate 100 mls @ 1 mls/hr 01/14/25 15:29 01/17/25 19:28 Morphine Sulfate Iv Drip 100mg/100ml IV 01/19/25 15:28 2 mg/hr .Q24H PRN 2 mls/hr PAIN (COMFORT CARE) Titration Protocol 1 MG/HR Lidocaine 1 patch 01/10/25 11:30 01/14/25 10:18 Lidocaine 5% 1 Patch TOP 02/09/25 11:29 1 patch UD PRN Administration Back Pain Protocol Lorazepam 1 mg 01/14/25 15:29 01/17/25 07:26 Lorazepam 2 Mg/Ml Vial IVP 01/19/25 15:28 1 mg Q6HR PRN Administration ANXIETY Morphine Sulfate 2 mg 01/14/25 15:29 01/18/25 12:26 Morphine Sulf Inj 4 Mg/Ml Vial IVP 01/19/25 15:28 2 mg Q30M PRN Administration PAIN Ondansetron HCl 4 mg 12/25/24 21:56 01/16/25 09:06 Ondansetron Inj 2 Mg/Ml Inj 2 Ml IVP 01/24/25 21:55 4 mg Q6HR PRN Administration NAUSEA OR VOMITING Protocol Sertraline HCl 50 mg 12/23/24 09:00 01/18/25 08:57 Sertraline Hcl 25 Mg Tablet PO 01/22/25 08:59 50 mg QDAY CHAPARRO Administration Plan Mrs. Andrew is a 64-year-old female past medical significant of asthma, breast cancer s/p mastectomy 2017, thyroid cancer s/p thyroidectomy 2021 and radiation therapy, recently admitted for acute hypoxic respiratory failure secondary to right large pleural effusion discharged 11/20 presenting today 12/23 with similar complaint of SOB. #Goals of care #Comfort focused treatment Family was explained regarding poor prognosis, worsening respiratory status despite multiple interventions throughout the prolonged hospital course of 22 days. Patient does have underlying chronic hydropneumothorax right lung for which she was unable to get VATS post transfer during her prior admission. During this admission Patient had chest tube placed and eventually plan was to place PleurX catheter however patient continued to have deteriorating and worsening respiratory function, patient and patient's family verbalized understanding regarding poor prognosis in setting of extensive metastatic breast and thyroid cancer. 01/14/2025 afternoon patient expressed her wish to proceed with comfort focused treatment and transition CODE STATUS to DNR/DNI. - Morphine drip - Morphine as needed for pain - Ativan as needed for anxiety - Zofran as needed for nausea/vomiting - Scopolamine patch as needed - Glycopyrrolate as needed for secretions - Benadryl as needed for itching - Continue high flow nasal cannula #Acute hypoxic respiratory failure 03/25 #Left sided malignant pleural effusion / #Metastatic breast cancer, stage IV #Chronic Hydropneumothorax right lung, trapped lung #S/P Left Lung Biopsy #Status post chest tube placement 12/24/24, discontinued 01/01/25 #Asthma, by history On initial presentation patient speaking in short sentences oxygen saturation 86% on 5L nasal cannula. Recent admission of similar presentation revealed exudative effusion from malignant metastases. Patient established with oncology outpatient, was transferred out for decortication however no intervention was done because of stage IV breast cancer per patient. 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 Status post Left upper lobe lung mass pulmonary biopsy (12/27/2024). -Discussed the case with Oncology, Dr. Flowers. Lung biopsy confirms malignancy consistent with breast primary. Prognostic markers including ER/MA receptors and HER2/claudio results are still pending. -Chest tube was removed on 01/01 because it was leaking. -Patient's PET scan has been delayed to January 21, 2025 at 1:45 PM -Per oncology, the biopsy results of the lung showed dual metastasis of breast primary and papillary thyroid carcinoma. Receptors were negative ER/MA, negative HER2/Claudio and negative KI?67 15 to 20% positive. Second focus consistent with metastatic thyroid carcinoma IHC is pending for confirmation. PD-L1 was requested for possible immunotherapy. Her elevated TSH could be related to the metastic cancer problem. -01/07: Patient's O2 saturation decreased to 83%. Received thoracentesis draining ~770cc. CXR after thoracentesis showed reexpanded left lung. Was given IV lasix 40mg x1. Have discussed about the event and patient's status with oncologist, Dr. Flowers , Upon stabilization of patient's vitals, she will be discharged and received PleurX catheter at [facility] and follow-up with Dr. Li at [facility] in [place]. -Checks x-ray postthoracentesis on 01/07 showed some fluid in the right fissure. Per ICU recommendations, started on IV Lasix 40 mg and ordered echo. -Echo(01/07/2025) showed indeterminate diastolic function with ejection fraction 55 to 60% and RVSP 20 mmHg. Today patient showed +1 pitting edema on her bilateral leg. LV and RV size was normal and systolic function was also normal. - US 01/11 Mild to moderate right pleural fluid? - CXR 01/11 extensive bilateral pneumonia? - CXR 01/13 slightly worsened bilateral infiltrate, moderate left > right pleural effusion, small loculated right pneumothorax. Plan: -Comfort focused treatment, as above #Hypothyroidism #Hx thyroid cancer s/p thyroidectomy 2021 No current active symptoms of hyperthyroid currently. TSH >100 free T4 0.86 Free T3 1.7 Patient's TSH level has been increasing. On admission, TSH 101.7 with free T4: 0.86. On 01/03, TSH>150 with free T4: 0.78. Patient's p.o. levothyroxine 125 mcg has been stopped. IV levothyroxine 125 mcg x 1 has been ordered on 01/04. Will continue to monitor her TSH level. Plan: -Comfort focused treatment as above #Dysphagia #Loss of Appetite -Sensation of food/medicine not going down, with epigastric chest discomfort on eating. -Difficulty removing phlegm. -Ddx: GERD, stictures, Mets to esophagus. -Swallow eval (01/01/2025): Any large pills should be crushed. Pt is independent in eating/swallowing using compensatory techniques and specific diet selections. No further swallow treatment servives warranted at this time. Plan: -Comfort focused treatment as above #Hx of pressure injury, coccyx, stage III Patient reports frequent back pain and it was noted that the patient had a possible pressure injury and her coccyx area. Per last admission, the wound staging is stage III without any drainage or order. Plan: -Comfort focused treatment as above #Depression - Comfort focused treatment Health Maintenance: Code status: DNR/DNI, comfort focused treatment DVT prophylaxis: Comfort focused treatment GI prophylaxis: Comfort focused treatment Diet: N.p.o., high aspiration risk Mccallum: None Lines: PIV Supplemental O2: High flow nasal cannula [facility] Case discussed with Attending Physician Dr. Abhishek Ramirez MD Internal Medicine PGY-2 Disclaimer: This note was dictated by speech recognition. Minor errors in news technical director may be present due to voice recognition software. Attending Provider Attestation/Addendum Patient seen and examined ith family rose at [facility]. She is on Morphine. She is on comfort care. Adjust dose of morphine as indicated. Discussed with housestaff.
--- NOTE | 2025-01-18 19:10 | PC.NURSE ---
Total administration of morphine drip was 24.16 ml
[2025-01-18 20:00] VITALS: BP 151/106; PULSE 100; RESP 18; TEMP 35.8; O2SAT 92
[2025-01-18] MEDS: Morphine IV Drip 100mg/100ml 100 ML IV (20:53)
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
[2025-01-19] MEDS: MORPHINE SULF INJ 4 MG/ML VIAL 2 MG IVP ×3 (04:53→19:25)
[2025-01-19 06:00] VITALS: BMI 25.0
[2025-01-19 08:00] VITALS: BP 152/104; PULSE 96; RESP 18; TEMP 36.1; O2SAT 92
[2025-01-19] MEDS: SERTRALINE HCL 25 MG TABLET 50 MG PO (08:17)
[2025-01-19] MEDS: ONDANSETRON INJ 2 MG/ML INJ 2 ML 4 MG IVP (08:29)
[2025-01-19] MEDS: LORazepam 2 MG/ML VIAL 1 MG IVP (10:25)
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
[2025-01-19 17:25] VITALS: PULSE 92; RESP 22; O2SAT 92
[2025-01-19 20:00] VITALS: BP 140/109; PULSE 91; RESP 22; TEMP 36.2; O2SAT 92
[2025-01-19 20:10] VITALS: PULSE 91; RESP 22; O2SAT 91; O2SAT 92
[2025-01-20 06:00] VITALS: BMI 25.0
[2025-01-20] MEDS: MORPHINE SULF INJ 4 MG/ML VIAL 2 MG IVP ×2 (07:29→17:11)
[2025-01-20] MEDS: ONDANSETRON INJ 2 MG/ML INJ 2 ML 4 MG IVP (07:29)
[2025-01-20] MEDS: Morphine IV Drip 100mg/100ml 100 ML IV (07:38)
[2025-01-20] MEDS: LORazepam 2 MG/ML VIAL 1 MG IVP (07:48)
[2025-01-20 08:00] VITALS: PULSE 82; RESP 20; TEMP 35.9; O2SAT 87
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
[2025-01-20 14:19] VITALS: PULSE 93; RESP 20; O2SAT 89
--- NOTE | 2025-01-20 14:46 | PD.RESPRO ---
Documentation for date of: 01/20/25 Subjective Subjective Interval history: No overnight events. Patient seen and examined at bedside, lethargic, denies any discomfort, SOB, pain. Continue comfort care. Exam Vital Signs Temp Pulse Resp BP Pulse Ox O2 Del Method O2 Flow Rate 96.7 F L 93 20 140/109 H 89 L Nasal Cannula 6 01/20/25 08:00 01/20/25 14:19 01/20/25 14:19 01/19/25 20:00 01/20/25 14:19 01/19/25 20:00 01/20/25 14:19 FiO2 60 01/15/25 16:00 Narrative Exam General: No acute distress,, AAO x3 tired, sick appearing Lungs: Symmetric chest rise, No wheezing, rhonchi, crackles, Decreased breathe sounds in bilateral lung bases. Heart: Peripheral pulses intact bilaterally, Regular Rate and Rhythm. Abdomen: Soft, non-tender, non-distended, no palpable masses Psychiatric: Cooperative, appropriate mood and affect, Awake and alert but lethargic, not agitated Neuro: Cranial nerves II-XII grossly intact. Strength 5/5 throughout. Sensations intact to light touch. Limited exam due to comfort measures Objective Labs 01/14/25 04:48 01/14/25 04:48 ABG Interpretation ABG results: 01/14/25 09:47 VBG pH 7.50 VBG pCO2 43 VBG pO2 51 VBG Base Excess 9 H Quality Measures Quality Measures VTE prophylaxis Advance care planning discussed with:: patient, child and sibling Assessment & Plan Assessment Current Active Medications: Generic Name Dose Route Start Last Admin Trade Name Freq PRN Reason Stop Dose Admin Albuterol/Ipratropium 3 ml 12/30/24 03:46 01/18/25 07:59 Albuterol/Ipratropium (Duoneb) Rt Zo 3 Ml Nebu INH 01/29/25 03:45 3 ml Q2HR PRN Administration SHORTNESS OF BREATH OR WHEEZE Diphenhydramine HCl 25 mg 01/14/25 15:29 Diphenhydramine Inj 50 Mg/Ml Vial IVP 02/13/25 15:28 Q6HR PRN ITCHING Glycopyrrolate 0.2 mg 01/14/25 15:29 01/14/25 16:24 Glycopyrrolate Inj 0.2 Mg/Ml Vial IV 02/13/25 15:28 0.2 mg QID PRN Administration As needed for secretions Guaifenesin/Codeine Phosphate 10 ml 01/02/25 16:22 01/18/25 07:10 Guaifenesin/Cod Syrup 5 Ml Udc PO 02/01/25 16:21 10 ml Q4HR PRN Administration COUGH Protocol Morphine Sulfate 100 mls @ 1 mls/hr 01/14/25 15:29 01/20/25 07:38 Morphine Sulfate Iv Drip 100mg/100ml IV 01/25/25 15:28 2 mg/hr .Q24H PRN 2 mls/hr PAIN (COMFORT CARE) Administration Protocol 1 MG/HR Lidocaine 1 patch 01/10/25 11:30 01/14/25 10:18 Lidocaine 5% 1 Patch TOP 02/09/25 11:29 1 patch UD PRN Administration Back Pain Protocol Lorazepam 1 mg 01/14/25 15:29 01/20/25 07:48 Lorazepam 2 Mg/Ml Vial IVP 01/25/25 15:28 1 mg Q6HR PRN Administration ANXIETY Morphine Sulfate 2 mg 01/14/25 15:29 01/20/25 07:29 Morphine Sulf Inj 4 Mg/Ml Vial IVP 01/25/25 15:28 2 mg Q30M PRN Administration PAIN Ondansetron HCl 4 mg 12/25/24 21:56 01/20/25 07:29 Ondansetron Inj 2 Mg/Ml Inj 2 Ml IVP 01/24/25 21:55 4 mg Q6HR PRN Administration NAUSEA OR VOMITING Protocol Sertraline HCl 50 mg 12/23/24 09:00 01/20/25 08:08 Sertraline Hcl 25 Mg Tablet PO 01/22/25 08:59 Not Given QDAY CHAPARRO Plan Mrs. Andrew is a 64-year-old female past medical significant of asthma, breast cancer s/p mastectomy 2017, thyroid cancer s/p thyroidectomy 2021 and radiation therapy, recently admitted for acute hypoxic respiratory failure secondary to right large pleural effusion discharged 11/20 presenting today 12/23 with similar complaint of SOB. #Goals of care #Comfort focused treatment Family was explained regarding poor prognosis, worsening respiratory status despite multiple interventions throughout the prolonged hospital course of 22 days. Patient does have underlying chronic hydropneumothorax right lung for which she was unable to get VATS post transfer during her prior admission. During this admission Patient had chest tube placed and eventually plan was to place PleurX catheter however patient continued to have deteriorating and worsening respiratory function, patient and patient's family verbalized understanding regarding poor prognosis in setting of extensive metastatic breast and thyroid cancer. 01/14/2025 afternoon patient expressed her wish to proceed with comfort focused treatment and transition CODE STATUS to DNR/DNI. - Morphine drip - Morphine as needed for pain - Ativan as needed for anxiety - Zofran as needed for nausea/vomiting - Scopolamine patch as needed - Glycopyrrolate as needed for secretions - Benadryl as needed for itching - Continue high flow nasal cannula #Acute hypoxic respiratory failure 2/2 #Left sided malignant pleural effusion 2/2 #Metastatic breast cancer, stage IV #Chronic Hydropneumothorax right lung, trapped lung #S/P Left Lung Biopsy #Status post chest tube placement 12/24/24, discontinued 01/01/25 #Asthma, by history On initial presentation patient speaking in short sentences oxygen saturation 86% on 5L nasal cannula. Recent admission of similar presentation revealed exudative effusion from malignant metastases. Patient established with oncology outpatient, was transferred out for decortication however no intervention was done because of stage IV breast cancer per patient. 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 Status post Left upper lobe lung mass pulmonary biopsy (12/27/2024). -Discussed the case with Oncology, Dr. Flowers. Lung biopsy confirms malignancy consistent with breast primary. Prognostic markers including ER/VT receptors and HER2/stevie results are still pending. -Chest tube was removed on 01/01 because it was leaking. -Patient's PET scan has been delayed to January 21, 2025 at 1:45 PM -Per oncology, the biopsy results of the lung showed dual metastasis of breast primary and papillary thyroid carcinoma. Receptors were negative ER/VT, negative HER2/Stevie and negative KI?67 15 to 20% positive. Second focus consistent with metastatic thyroid carcinoma IHC is pending for confirmation. PD-L1 was requested for possible immunotherapy. Her elevated TSH could be related to the metastic cancer problem. -01/07: Patient's O2 saturation decreased to 83%. Received thoracentesis draining ~770cc. CXR after thoracentesis showed reexpanded left lung. Was given IV lasix 40mg x1. Have discussed about the event and patient's status with oncologist, Dr. Flowers , Upon stabilization of patient's vitals, she will be discharged and received PleurX catheter at [facility] and follow-up with Dr. Li at [facility] in [place]. -Checks x-ray postthoracentesis on 01/07 showed some fluid in the right fissure. Per ICU recommendations, started on IV Lasix 40 mg and ordered echo. -Echo(01/07/2025) showed indeterminate diastolic function with ejection fraction 55 to 60% and RVSP 20 mmHg. Today patient showed +1 pitting edema on her bilateral leg. LV and RV size was normal and systolic function was also normal. - US 01/11 Mild to moderate right pleural fluid? - CXR 01/11 extensive bilateral pneumonia? - CXR 01/13 slightly worsened bilateral infiltrate, moderate left > right pleural effusion, small loculated right pneumothorax. Plan: -Comfort focused treatment, as above #Hypothyroidism #Hx thyroid cancer s/p thyroidectomy 2021 No current active symptoms of hyperthyroid currently. TSH >100 free T4 0.86 Free T3 1.7 Patient's TSH level has been increasing. On admission, TSH 101.7 with free T4: 0.86. On 01/03, TSH>150 with free T4: 0.78. Patient's p.o. levothyroxine 125 mcg has been stopped. IV levothyroxine 125 mcg x 1 has been ordered on 01/04. Will continue to monitor her TSH level. Plan: -Comfort focused treatment as above #Dysphagia #Loss of Appetite -Sensation of food/medicine not going down, with epigastric chest discomfort on eating. -Difficulty removing phlegm. -Ddx: GERD, stictures, Mets to esophagus. -Swallow eval (01/01/2025): Any large pills should be crushed. Pt is independent in eating/swallowing using compensatory techniques and specific diet selections. No further swallow treatment servives warranted at this time. Plan: -Comfort focused treatment as above #Hx of pressure injury, coccyx, stage III Patient reports frequent back pain and it was noted that the patient had a possible pressure injury and her coccyx area. Per last admission, the wound staging is stage III without any drainage or order. Plan: -Comfort focused treatment as above #Depression - Comfort focused treatment Health Maintenance: Code status: DNR/DNI, comfort focused treatment DVT prophylaxis: Comfort focused treatment GI prophylaxis: Comfort focused treatment Diet: N.p.o., high aspiration risk Mccallum: None Lines: PIV Supplemental O2: High flow nasal cannula Disposition: MedSurg Case discussed with Attending Physician Dr. Srinath Prather MD Internal Medicine PGY-2 Disclaimer: This note was dictated by speech recognition. Minor errors in animal keeper may be present due to voice recognition software. Attending Provider Attestation/Addendum I have discussed and was present for the essential components of the history, physical examination, diagnosis, and treatment plan with the resident. I agree with the patient's care as documented by the resident and amended herein by me. Andrzej Sanon DO. Although this document has been carefully reviewed, there may still be some phonetic and other typographical errors. These errors are purely grammatical due to imperfections in the software program and should not be construed in any way to compromise the substance of the patient's medical care during this visit. Patient seen and evaluated this AM. No acute events overnight, patient presently on comfort measures. The issue is where to place this patient for hospice. She cannot go home as she lives alone apparently, no family member can take her. Patient presently on morphine drip has been relatively stable, social work notified as to issues with placement. Family at bedside this morning, we did let them know of the issues, she will stay inpatient until we can come up with a solution for hospice care, the patient may pass while in the hospital however as stated above, she has been relatively stable and comfortable
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
--- NOTE | 2025-01-20 16:23 | PC.SS ---
SS was contacted by Aissatou LONGORIA in regards to pt son requesting SS presence during POA discussion with emerald. SS confirmed with HERACLIO, [place] Mcdonnell SS is not allowed to be a witness. SS allowed to provide support during discussion during working hours but that is all. SS updated Aissatou LONGORIA as well as son Matthias that SS is off at 1630 and will not be able to stay after.
[2025-01-20 19:17] VITALS: PULSE 85; RESP 18; O2SAT 96
[2025-01-20 20:00] VITALS: PULSE 91; RESP 15; TEMP 35.9; O2SAT 95
[2025-01-20] MEDS: LORazepam 2 MG/ML VIAL 0.5 MG IVP (22:36)
[2025-01-21] MEDS: MORPHINE SULF INJ 4 MG/ML VIAL 2 MG IVP ×4 (01:30→19:21)
[2025-01-21 06:00] VITALS: BMI 25.0
[2025-01-21 08:00] VITALS: PULSE 90; RESP 15; TEMP -12.7; TEMP 9; O2SAT 97
--- NOTE | 2025-01-21 08:10 | ESPR_ITS ---
<Statement entered by Juan Mcmahon MD - 01/21/25 23:08> I saw and examined patient personally and supervised PGY 1 resident, Dr. Rojas with formulating a management plan. I agree with the documentation with the exceptions as listed below. Patient is a 64-year-old female past medical significant of asthma, breast cancer s/p mastectomy 2017, thyroid cancer s/p thyroidectomy 2021 and radiation therapy, recently admitted for acute hypoxic respiratory failure secondary to right large pleural effusion discharged 11/20 presenting today 12/23 with similar complaint of SOB. Problem list: 1. Comfort care 2. History of metastatic breast and thyroid cancer Patient currently under comfort measures on morphine infusion and 2 mg per hour and Ativan pushes as needed. Patient's family seen at bedside today and counseled on poor prognosis uncertain estimation of exact time of . Will keep overnight and decide on long-term plan in the following days. Plan of care discussed with Attending Dr. Abhishek Mcmahon MD PGY 2 Disclaimer: This note was dictated by speech recognition. Minor errors in wet mix operator may be present due to voice recognition software. Documentation for date of: 01/21/25 Subjective Subjective Interval history: Patient seen and examined at bedside; no acute events overnight. Patient is on comfort care. Family states that she has been having increasing secretions that have been treated with scopolamine patch which was removed when comfort care began; we added scopolamine patch back. Family does not want to take patient home at this time, insurance company does not wish to pay for facility. Exam Vital Signs Temp Pulse Resp BP Pulse Ox O2 Del Method O2 Flow Rate 9 F L 90 15 140/109 H 97 Nasal Cannula 6 01/21/25 08:00 01/21/25 08:00 01/21/25 08:00 01/19/25 20:00 01/21/25 08:00 01/21/25 08:00 01/21/25 08:00 FiO2 60 01/15/25 16:00 Narrative Exam General: A/O x3, no acute distress, well-nourished, well-developed, lethargic Eyes: PERRL, EOMI. Anicteric, vision grossly intact. Ears: No ear pain, no ear discharge, Hearing grossly intact. Nose: No nasal discharge. Mouth/Throat: Moist mucous membranes, no redness, no lesions. Neck: Neck supple, non-tender, no cervical lymphadenopathy. Lungs: Clear YULI to auscultation and percussion, No accessory muscle use. Cardio: Normal S1/S2, regular rhythm, no murmurs, no JVD or carotid bruits. Abdomen: Soft, non-tender, no palpable masses, peristalsis present, no guarding or rebound. Extremities: Symmetrical, no significant deformities, no peripheral edema , non-tender, peripheral pulses present. Skin: No rashes, no lesions, warm to touch. Neuro: No focal neurological deficits. Psych: Cooperative, appropriate mood and effect, lethargic. Objective Labs 01/14/25 04:48 01/14/25 04:48 ABG Interpretation ABG results: 01/14/25 09:47 VBG pH 7.50 VBG pCO2 43 VBG pO2 51 VBG Base Excess 9 H Quality Measures Quality Measures VTE prophylaxis Advance care planning discussed with:: other Assessment & Plan Assessment Current Active Medications: Generic Name Dose Route Start Last Admin Trade Name Freq PRN Reason Stop Dose Admin Albuterol/Ipratropium 3 ml 12/30/24 03:46 01/18/25 07:59 Albuterol/Ipratropium (Duoneb) Rt Zo 3 Ml Nebu INH 01/29/25 03:45 3 ml Q2HR PRN Administration SHORTNESS OF BREATH OR WHEEZE Diphenhydramine HCl 25 mg 01/14/25 15:29 Diphenhydramine Inj 50 Mg/Ml Vial IVP 02/13/25 15:28 Q6HR PRN ITCHING Glycopyrrolate 0.2 mg 01/14/25 15:29 01/14/25 16:24 Glycopyrrolate Inj 0.2 Mg/Ml Vial IV 02/13/25 15:28 0.2 mg QID PRN Administration As needed for secretions Guaifenesin/Codeine Phosphate 10 ml 01/02/25 16:22 01/18/25 07:10 Guaifenesin/Cod Syrup 5 Ml Udc PO 02/01/25 16:21 10 ml Q4HR PRN Administration COUGH Protocol Morphine Sulfate 100 mls @ 1 mls/hr 01/14/25 15:29 01/20/25 07:38 Morphine Sulfate Iv Drip 100mg/100ml IV 01/25/25 15:28 2 mg/hr .Q24H PRN 2 mls/hr PAIN (COMFORT CARE) Administration Protocol 1 MG/HR Lidocaine 1 patch 01/10/25 11:30 01/14/25 10:18 Lidocaine 5% 1 Patch TOP 02/09/25 11:29 1 patch UD PRN Administration Back Pain Protocol Lorazepam 1 mg 01/14/25 15:29 01/20/25 07:48 Lorazepam 2 Mg/Ml Vial IVP 01/25/25 15:28 1 mg Q6HR PRN Administration ANXIETY Morphine Sulfate 2 mg 01/14/25 15:29 01/21/25 06:07 Morphine Sulf Inj 4 Mg/Ml Vial IVP 01/25/25 15:28 2 mg Q30M PRN Administration PAIN Ondansetron HCl 4 mg 12/25/24 21:56 01/20/25 07:29 Ondansetron Inj 2 Mg/Ml Inj 2 Ml IVP 01/24/25 21:55 4 mg Q6HR PRN Administration NAUSEA OR VOMITING Protocol Sertraline HCl 50 mg 12/23/24 09:00 01/20/25 08:08 Sertraline Hcl 25 Mg Tablet PO 01/22/25 08:59 Not Given QDAY CHAPARRO Plan Patient is a 64-year-old female past medical significant of asthma, breast cancer s/p mastectomy 2017, thyroid cancer s/p thyroidectomy 2021 and radiation therapy, recently admitted for acute hypoxic respiratory failure secondary to right large pleural effusion discharged 11/20 presenting today 12/23 with similar complaint of SOB. #Goals of care #Comfort focused treatment Family was explained regarding poor prognosis, worsening respiratory status despite multiple interventions throughout the prolonged hospital course of 22 days. Patient does have underlying chronic hydropneumothorax right lung for which she was unable to get VATS post transfer during her prior admission. During this admission Patient had chest tube placed and eventually plan was to place PleurX catheter however patient continued to have deteriorating and worsening respiratory function, patient and patient's family verbalized understanding regarding poor prognosis in setting of extensive metastatic breast and thyroid cancer. 01/14/2025 afternoon patient expressed her wish to proceed with comfort focused treatment and transition CODE STATUS to DNR/DNI. Plan: - Morphine drip - Morphine as needed for pain - Ativan as needed for anxiety - Zofran as needed for nausea/vomiting - Scopolamine patch as needed - Glycopyrrolate as needed for secretions - Benadryl as needed for itching - Continue high flow nasal cannula #Acute hypoxic respiratory failure 2/2 #Left sided malignant pleural effusion 2/2 #Metastatic breast cancer, stage IV #Chronic Hydropneumothorax right lung, trapped lung #S/P Left Lung Biopsy #Status post chest tube placement 12/24/24, discontinued 01/01/25 #Asthma, by history On initial presentation patient speaking in short sentences oxygen saturation 86% on 5L nasal cannula. Recent admission of similar presentation revealed exudative effusion from malignant metastases. Patient established with oncology outpatient, was transferred out for decortication however no intervention was done because of stage IV breast cancer per patient. 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 Status post Left upper lobe lung mass pulmonary biopsy (12/27/2024). -Discussed the case with Oncology, Dr. Flowers. Lung biopsy confirms malignancy consistent with breast primary. Prognostic markers including ER/WY receptors and HER2/claudio results are still pending. -Chest tube was removed on 01/01 because it was leaking. -Patient's PET scan has been delayed to January 21, 2025 at 1:45 PM -Per oncology, the biopsy results of the lung showed dual metastasis of breast primary and papillary thyroid carcinoma. Receptors were negative ER/WY, negative HER2/Claudio and negative KI?67 15 to 20% positive. Second focus consistent with metastatic thyroid carcinoma IHC is pending for confirmation. PD-L1 was requested for possible immunotherapy. Her elevated TSH could be related to the metastic cancer problem. -01/07: Patient's O2 saturation decreased to 83%. Received thoracentesis draining ~770cc. CXR after thoracentesis showed reexpanded left lung. Was given IV lasix 40mg x1. Have discussed about the event and patient's status with oncologist, Dr. Flowers , Upon stabilization of patient's vitals, she will be discharged and received PleurX catheter at [facility] and follow-up with Dr. Li at [facility] in [place]. -Checks x-ray postthoracentesis on 01/07 showed some fluid in the right fissure. Per ICU recommendations, started on IV Lasix 40 mg and ordered echo. -Echo(01/07/2025) showed indeterminate diastolic function with ejection fraction 55 to 60% and RVSP 20 mmHg. Today patient showed +1 pitting edema on her bilateral leg. LV and RV size was normal and systolic function was also normal. - US 01/11 Mild to moderate right pleural fluid? - CXR 01/11 extensive bilateral pneumonia? - CXR 01/13 slightly worsened bilateral infiltrate, moderate left > right pleural effusion, small loculated right pneumothorax. Plan: -Comfort focused treatment, as above #Hypothyroidism #Hx thyroid cancer s/p thyroidectomy 2021 No current active symptoms of hyperthyroid currently. TSH >100 free T4 0.86 Free T3 1.7 Patient's TSH level has been increasing. On admission, TSH 101.7 with free T4: 0.86. On 01/03, TSH>150 with free T4: 0.78. Patient's p.o. levothyroxine 125 mcg has been stopped. IV levothyroxine 125 mcg x 1 has been ordered on 01/04. Will continue to monitor her TSH level. Plan: -Comfort focused treatment as above #Dysphagia #Loss of Appetite -Sensation of food/medicine not going down, with epigastric chest discomfort on eating. -Difficulty removing phlegm. -Ddx: GERD, stictures, Mets to esophagus. -Swallow eval (01/01/2025): Any large pills should be crushed. Pt is independent in eating/swallowing using compensatory techniques and specific diet selections. No further swallow treatment servives warranted at this time. Plan: -Comfort focused treatment as above #Hx of pressure injury, coccyx, stage III Patient reports frequent back pain and it was noted that the patient had a possible pressure injury and her coccyx area. Per last admission, the wound staging is stage III without any drainage or order. Plan: -Comfort focused treatment as above #Depression - Comfort focused treatment Health Maintenance: Code status: DNR/DNI, comfort focused treatment DVT prophylaxis: Comfort focused treatment GI prophylaxis: Comfort focused treatment Diet: N.p.o., high aspiration risk Mccallum: None Lines: PIV Supplemental O2: High flow nasal cannula Disposition: [facility] This case was discussed with my attending physician, Dr. Sauceda, and senior resident, Dr. Mcmahon. Carlos Rojas, PGY1 Attending Provider Attestation/Addendum Patient seen and examined. She appears comfortable. She is on morphine drip. Discussed. Patient's daughter and son over FaceTime. The patient will be given 1 mg Ativan if she develops breathing problems and feeling of being underwater specially at nighttime Family is waiting for more relatives coming tonight. Discussed with housestaff. Continue comfort care.
[2025-01-21 09:30] VITALS: PULSE 68; RESP 24; O2SAT 94
--- NOTE | 2025-01-21 09:40 | PC.SS ---
Follow up note: On Comfort Care. On Morphin Drip.
[2025-01-21] MEDS: SCOPOLAMINE 1 MG TDSY TOP (12:27)
[2025-01-21] MEDS: ALBUTEROL/IPRATROPIUM (Duoneb) RT SOL 3 ML NEBU INH (17:29)
[2025-01-21 17:33] VITALS: PULSE 98; RESP 24; O2SAT 91
[2025-01-21 20:00] VITALS: BP 122/71; PULSE 93; RESP 16; TEMP 36.7; O2SAT 94
[2025-01-21] MEDS: LORazepam 2 MG/ML VIAL 1 MG IVP (21:03)
[2025-01-22] MEDS: MORPHINE SULF INJ 4 MG/ML VIAL 2 MG IVP ×7 (00:04→21:00)
[2025-01-22 00:07] VITALS: PULSE 101; PULSE 90; RESP 25; RESP 27; O2SAT 93
[2025-01-22] MEDS: ALBUTEROL/IPRATROPIUM (Duoneb) RT SOL 3 ML NEBU INH (00:07)
[2025-01-22] MEDS: LORazepam 2 MG/ML VIAL 1 MG IVP ×6 (00:18→21:01)
[2025-01-22 08:00] VITALS: BP 158/129; PULSE 92; RESP 19; TEMP 36.1; O2SAT 95
--- NOTE | 2025-01-22 09:27 | ESPR_ITS ---
<Statement entered by Juan Mcmahon MD - 01/22/25 21:09> I saw and examined patient personally and supervised PGY 1 resident, Dr. Rojas with formulating a management plan. I agree with the documentation with the exceptions as listed below. Patient is a 64-year-old female past medical significant of asthma, breast cancer s/p mastectomy 2017, thyroid cancer s/p thyroidectomy 2021 and radiation therapy, recently admitted for acute hypoxic respiratory failure secondary to right large pleural effusion discharged 11/20 presenting today 12/23 with similar complaint of SOB. Problem list: 1. Comfort care 2. History of metastatic breast and thyroid cancer Patient currently under comfort measures on morphine infusion and 2 mg per hour and Ativan qhourly as needed. Patient's family seen at bedside today and counseled on poor prognosis uncertain estimation of exact time of . Will keep overnight and decide on long-term plan in the following days. Plan of care discussed with Attending Dr. Talita Mcmahon MD PGY 2 Disclaimer: This note was dictated by speech recognition. Minor errors in librarian may be present due to voice recognition software. Documentation for date of: 01/22/25 Subjective Subjective Interval history: Patient seen and examined at bedside; no acute events overnight. Family says she may be in some pain; lorazepam increased to Q2H. Exam Vital Signs Temp Pulse Resp BP Pulse Ox O2 Del Method O2 Flow Rate 96.9 F 92 19 158/129 H 95 Nasal Cannula 6 01/22/25 08:00 01/22/25 08:00 01/22/25 08:00 01/22/25 08:00 01/22/25 08:00 01/22/25 08:00 01/22/25 08:00 FiO2 60 01/22/25 08:00 Narrative Exam General: A/O x0, lethargic Eyes: PERRL, EOMI. Anicteric, vision grossly intact. Ears: No ear pain, no ear discharge, Hearing grossly intact. Nose: No nasal discharge. Mouth/Throat: Moist mucous membranes, no redness, no lesions. Neck: Neck supple, non-tender, no cervical lymphadenopathy. Lungs: Clear YULI to auscultation and percussion, No accessory muscle use. Cardio: Normal S1/S2, regular rhythm, no murmurs, no JVD or carotid bruits. Abdomen: Soft, non-tender, no palpable masses, peristalsis present, no guarding or rebound. Extremities: Symmetrical, no significant deformities, no peripheral edema , non-tender, peripheral pulses present. Skin: No rashes, no lesions, warm to touch. Neuro: No focal neurological deficits. Psych: Cooperative, appropriate mood and effect, lethargic. Objective Labs 01/14/25 04:48 01/14/25 04:48 ABG Interpretation ABG results: 01/14/25 09:47 VBG pH 7.50 VBG pCO2 43 VBG pO2 51 VBG Base Excess 9 H Quality Measures Quality Measures VTE prophylaxis Advance care planning discussed with:: other Assessment & Plan Assessment Current Active Medications: Generic Name Dose Route Start Last Admin Trade Name Freq PRN Reason Stop Dose Admin Albuterol/Ipratropium 3 ml 12/30/24 03:46 01/22/25 00:07 Albuterol/Ipratropium (Duoneb) Rt Zo 3 Ml Nebu INH 01/29/25 03:45 3 ml Q2HR PRN Administration SHORTNESS OF BREATH OR WHEEZE Diphenhydramine HCl 25 mg 01/14/25 15:29 Diphenhydramine Inj 50 Mg/Ml Vial IVP 02/13/25 15:28 Q6HR PRN ITCHING Glycopyrrolate 0.2 mg 01/14/25 15:29 01/14/25 16:24 Glycopyrrolate Inj 0.2 Mg/Ml Vial IV 02/13/25 15:28 0.2 mg QID PRN Administration As needed for secretions Guaifenesin/Codeine Phosphate 10 ml 01/02/25 16:22 01/18/25 07:10 Guaifenesin/Cod Syrup 5 Ml Udc PO 02/01/25 16:21 10 ml Q4HR PRN Administration COUGH Protocol Morphine Sulfate 100 mls @ 1 mls/hr 01/14/25 15:29 01/20/25 07:38 Morphine Sulfate Iv Drip 100mg/100ml IV 01/25/25 15:28 2 mg/hr .Q24H PRN 2 mls/hr PAIN (COMFORT CARE) Administration Protocol 1 MG/HR Lidocaine 1 patch 01/10/25 11:30 01/14/25 10:18 Lidocaine 5% 1 Patch TOP 02/09/25 11:29 1 patch UD PRN Administration Back Pain Protocol Lorazepam 1 mg 01/22/25 08:16 Lorazepam 2 Mg/Ml Vial IVP 02/18/25 08:15 Q2H PRN ANXIETY Morphine Sulfate 2 mg 01/14/25 15:29 01/22/25 02:51 Morphine Sulf Inj 4 Mg/Ml Vial IVP 01/25/25 15:28 2 mg Q30M PRN Administration PAIN Ondansetron HCl 4 mg 12/25/24 21:56 01/20/25 07:29 Ondansetron Inj 2 Mg/Ml Inj 2 Ml IVP 01/24/25 21:55 4 mg Q6HR PRN Administration NAUSEA OR VOMITING Protocol Scopolamine 1 mg 01/21/25 12:00 01/21/25 12:27 Scopolamine 1 Mg Tdsy TOP 02/20/25 11:59 1 mg Q3D CHAPARRO Administration Plan Patient is a 64-year-old female past medical significant of asthma, breast cancer s/p mastectomy 2017, thyroid cancer s/p thyroidectomy 2021 and radiation therapy, recently admitted for acute hypoxic respiratory failure secondary to right large pleural effusion discharged 11/20 presenting today 12/23 with similar complaint of SOB. #Goals of care #Comfort focused treatment Family was explained regarding poor prognosis, worsening respiratory status despite multiple interventions throughout the prolonged hospital course of 22 days. Patient does have underlying chronic hydropneumothorax right lung for which she was unable to get VATS post transfer during her prior admission. During this admission Patient had chest tube placed and eventually plan was to place PleurX catheter however patient continued to have deteriorating and worsening respiratory function, patient and patient's family verbalized understanding regarding poor prognosis in setting of extensive metastatic breast and thyroid cancer. 01/14/2025 afternoon patient expressed her wish to proceed with comfort focused treatment and transition CODE STATUS to DNR/DNI. Plan: - Morphine drip - Morphine as needed for pain - Ativan as needed for anxiety; increased to Q1H today - Zofran as needed for nausea/vomiting - Scopolamine patch as needed - Glycopyrrolate as needed for secretions - Benadryl as needed for itching - Continue high flow nasal cannula #Acute hypoxic respiratory failure 03/25 #Left sided malignant pleural effusion 03/25 #Metastatic breast cancer, stage IV #Chronic Hydropneumothorax right lung, trapped lung #S/P Left Lung Biopsy #Status post chest tube placement 12/24/24, discontinued 01/01/25 #Asthma, by history On initial presentation patient speaking in short sentences oxygen saturation 86% on 5L nasal cannula. Recent admission of similar presentation revealed exudative effusion from malignant metastases. Patient established with oncology outpatient, was transferred out for decortication however no intervention was done because of stage IV breast cancer per patient. 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 Status post Left upper lobe lung mass pulmonary biopsy (12/27/2024). -Discussed the case with Oncology, Dr. Flowers. Lung biopsy confirms malignancy consistent with breast primary. Prognostic markers including ER/CA receptors and HER2/stevie results are still pending. -Chest tube was removed on 01/01 because it was leaking. -Patient's PET scan has been delayed to January 21, 2025 at 1:45 PM -Per oncology, the biopsy results of the lung showed dual metastasis of breast primary and papillary thyroid carcinoma. Receptors were negative ER/CA, negative HER2/Stevie and negative KI?67 15 to 20% positive. Second focus consistent with metastatic thyroid carcinoma IHC is pending for confirmation. PD-L1 was requested for possible immunotherapy. Her elevated TSH could be related to the metastic cancer problem. -01/07: Patient's O2 saturation decreased to 83%. Received thoracentesis draining ~770cc. CXR after thoracentesis showed reexpanded left lung. Was given IV lasix 40mg x1. Have discussed about the event and patient's status with oncologist, Dr. Flowers , Upon stabilization of patient's vitals, she will be discharged and received PleurX catheter at [facility] and follow-up with Dr. Li at [facility] in [place]. -Checks x-ray postthoracentesis on 01/07 showed some fluid in the right fissure. Per ICU recommendations, started on IV Lasix 40 mg and ordered echo. -Echo(01/07/2025) showed indeterminate diastolic function with ejection fraction 55 to 60% and RVSP 20 mmHg. Today patient showed +1 pitting edema on her bilateral leg. LV and RV size was normal and systolic function was also normal. - US 01/11 Mild to moderate right pleural fluid? - CXR 01/11 extensive bilateral pneumonia? - CXR 11/23 slightly worsened bilateral infiltrate, moderate left > right pleural effusion, small loculated right pneumothorax. Plan: -Comfort focused treatment, as above #Hypothyroidism #Hx thyroid cancer s/p thyroidectomy 2021 No current active symptoms of hyperthyroid currently. TSH >100 free T4 0.86 Free T3 1.7 Patient's TSH level has been increasing. On admission, TSH 101.7 with free T4: 0.86. On 01/03, TSH>150 with free T4: 0.78. Patient's p.o. levothyroxine 125 mcg has been stopped. IV levothyroxine 125 mcg x 1 has been ordered on 01/04. Will continue to monitor her TSH level. Plan: -Comfort focused treatment as above #Dysphagia #Loss of Appetite -Sensation of food/medicine not going down, with epigastric chest discomfort on eating. -Difficulty removing phlegm. -Ddx: GERD, stictures, Mets to esophagus. -Swallow eval (01/01/2025): Any large pills should be crushed. Pt is independent in eating/swallowing using compensatory techniques and specific diet selections. No further swallow treatment servives warranted at this time. Plan: -Comfort focused treatment as above #Hx of pressure injury, coccyx, stage III Patient reports frequent back pain and it was noted that the patient had a possible pressure injury and her coccyx area. Per last admission, the wound staging is stage III without any drainage or order. Plan: -Comfort focused treatment as above #Depression - Comfort focused treatment Health Maintenance: Code status: DNR/DNI, comfort focused treatment DVT prophylaxis: Comfort focused treatment GI prophylaxis: Comfort focused treatment Diet: N.p.o., high aspiration risk Mccallum: None Lines: PIV Supplemental O2: High flow nasal cannula Disposition: [facility] This case was discussed with my attending physician, Dr. Sanon, and senior resident, Dr. Mcmahon. Carlos Rojas, PGY1 Attending Provider Attestation/Addendum I have discussed and was present for the essential components of the history, physical examination, diagnosis, and treatment plan with the resident. I agree with the patient's care as documented by the resident and amended herein by me. Andrzej Sanon DO. Although this document has been carefully reviewed, there may still be some phonetic and other typographical errors. These errors are purely grammatical due to imperfections in the software program and should not be construed in any way to compromise the substance of the patient's medical care during this visit.
[2025-01-22] MEDS: Morphine IV Drip 100mg/100ml 100 ML IV (09:43)
--- NOTE | 2025-01-22 09:59 | PC.SS ---
Follow up note: Pt continues to be on comfort care. SS spoke to Dr. Sanon who is in agreement with pt not returning home at this time due to residing alone and family unable to care for pt at home. Pt does not have Medical to cover cost at SNF. SS spoke to Demetra the financial services sales representative who explained she submitted referral for the Medical application. Demetra is going to run patient's SS# to verify if pt has Medical.
[2025-01-22 11:29] VITALS: PULSE 86; RESP 20; O2SAT 95
[2025-01-22 11:32] VITALS: PULSE 83; RESP 20; O2SAT 95
[2025-01-22] MEDS: SCOPOLAMINE 1 MG TDSY TOP (14:49)
[2025-01-22 20:00] VITALS: BP 129/106; PULSE 93; RESP 14; TEMP 36.1; O2SAT 99
[2025-01-23] MEDS: MORPHINE SULF INJ 4 MG/ML VIAL 2 MG IVP ×2 (01:15→09:00)
[2025-01-23] MEDS: LORazepam 2 MG/ML VIAL 1 MG IVP ×3 (01:16→12:16)
--- NOTE | 2025-01-23 04:05 | PC.NURSE ---
[facility]
[2025-01-23 07:39] VITALS: PULSE 85; RESP 20; O2SAT 94
[2025-01-23 08:00] VITALS: BP 129/105; PULSE 106; RESP 16; TEMP 36.1; O2SAT 91
--- NOTE | 2025-01-23 09:12 | PC.SS ---
Follow up note: Pt is still on comfort care. 01-22-25: SS spoke to Demetra the financial aid who explained family did not follow through the Medical process.
[2025-01-23] MEDS: GLYCOPYRROLATE INJ 0.2 MG/ML VIAL IV (11:19)
--- NOTE | 2025-01-23 12:11 | ESPR_ITS ---
<Statement entered by Juan Mcmahon MD - 01/23/25 13:34> I saw and examined patient personally and supervised PGY 1 resident, Dr. Rojas with formulating a management plan. I agree with the documentation with the exceptions as listed below. Patient is a 64-year-old female past medical significant of asthma, breast cancer s/p mastectomy 2017, thyroid cancer s/p thyroidectomy 2021 and radiation therapy, recently admitted for acute hypoxic respiratory failure secondary to right large pleural effusion discharged 11/20 presenting today 12/23 with similar complaint of SOB. Problem list: 1. Comfort care 2. History of metastatic breast and thyroid cancer Patient currently under comfort measures on morphine infusion and 2 mg per hour and Ativan qhourly as needed. Increased morphine pushes to 4 mg IV every 30 minutes. Patient's family seen at bedside today and counseled on poor prognosis with uncertain estimation of exact time of . Will keep overnight and decide on long-term plan in the following days. Plan of care discussed with Attending Dr. Talita Mcmahon MD PGY 2 Disclaimer: This note was dictated by speech recognition. Minor errors in food service steward may be present due to voice recognition software. Documentation for date of: 01/23/25 Subjective Subjective Interval history: Patient seen and examined at bedside; no acute events overnight. Will increase morphine to 4mg Q30min. Exam Vital Signs Temp Pulse Resp BP Pulse Ox O2 Del Method O2 Flow Rate 97.0 F 106 H 16 129/105 H 91 L Nasal Cannula 5 01/23/25 08:00 01/23/25 08:00 01/23/25 08:00 01/23/25 08:00 01/23/25 08:00 01/23/25 08:00 01/23/25 08:00 FiO2 60 01/22/25 08:00 Narrative Exam General: A/O x0, lethargic Eyes: PERRL, EOMI. Anicteric, vision grossly intact. Ears: No ear pain, no ear discharge, Hearing grossly intact. Nose: No nasal discharge. Mouth/Throat: Moist mucous membranes, no redness, no lesions. Neck: Neck supple, non-tender, no cervical lymphadenopathy. Lungs: Clear YULI to auscultation and percussion, No accessory muscle use. Cardio: Normal S1/S2, regular rhythm, no murmurs, no JVD or carotid bruits. Abdomen: Soft, non-tender, no palpable masses, peristalsis present, no guarding or rebound. Extremities: Symmetrical, no significant deformities, no peripheral edema , non-tender, peripheral pulses present. Skin: No rashes, no lesions, warm to touch. Neuro: No focal neurological deficits. Psych: Lethargic. Objective Labs 01/14/25 04:48 01/14/25 04:48 ABG Interpretation ABG results: 01/14/25 09:47 VBG pH 7.50 VBG pCO2 43 VBG pO2 51 VBG Base Excess 9 H Quality Measures Quality Measures VTE prophylaxis Advance care planning discussed with:: other Assessment & Plan Assessment Current Active Medications: Generic Name Dose Route Start Last Admin Trade Name Freq PRN Reason Stop Dose Admin Albuterol/Ipratropium 3 ml 12/30/24 03:46 01/22/25 00:07 Albuterol/Ipratropium (Duoneb) Rt Zo 3 Ml Nebu INH 01/29/25 03:45 3 ml Q2HR PRN Administration SHORTNESS OF BREATH OR WHEEZE Diphenhydramine HCl 25 mg 01/14/25 15:29 Diphenhydramine Inj 50 Mg/Ml Vial IVP 02/13/25 15:28 Q6HR PRN ITCHING Glycopyrrolate 0.2 mg 01/14/25 15:29 01/23/25 11:19 Glycopyrrolate Inj 0.2 Mg/Ml Vial IV 02/13/25 15:28 0.2 mg QID PRN Administration As needed for secretions Guaifenesin/Codeine Phosphate 10 ml 01/02/25 16:22 01/18/25 07:10 Guaifenesin/Cod Syrup 5 Ml Udc PO 02/01/25 16:21 10 ml Q4HR PRN Administration COUGH Protocol Morphine Sulfate 100 mls @ 1 mls/hr 01/14/25 15:29 01/22/25 16:12 Morphine Sulfate Iv Drip 100mg/100ml IV 01/25/25 15:28 3 mg/hr .Q24H PRN 3 mls/hr PAIN (COMFORT CARE) Titration Protocol 1 MG/HR Lidocaine 1 patch 01/10/25 11:30 01/14/25 10:18 Lidocaine 5% 1 Patch TOP 02/09/25 11:29 1 patch UD PRN Administration Back Pain Protocol Lorazepam 1 mg 01/22/25 14:16 01/23/25 09:00 Lorazepam 2 Mg/Ml Vial IVP 01/27/25 08:15 1 mg Q1H PRN Administration ANXIETY Morphine Sulfate 4 mg 01/23/25 11:56 Morphine Sulf Inj 4 Mg/Ml Vial IVP 01/25/25 15:28 Q30M PRN PAIN Ondansetron HCl 4 mg 12/25/24 21:56 01/20/25 07:29 Ondansetron Inj 2 Mg/Ml Inj 2 Ml IVP 01/24/25 21:55 4 mg Q6HR PRN Administration NAUSEA OR VOMITING Protocol Scopolamine 1 mg 01/21/25 12:00 01/21/25 12:27 Scopolamine 1 Mg Tdsy TOP 02/20/25 11:59 1 mg Q3D CHAPARRO Administration Plan Patient is a 64-year-old female past medical significant of asthma, breast cancer s/p mastectomy 2017, thyroid cancer s/p thyroidectomy 2021 and radiation therapy, recently admitted for acute hypoxic respiratory failure secondary to right large pleural effusion discharged 11/20 presenting today 12/23 with similar complaint of SOB. #Goals of care #Comfort focused treatment Family was explained regarding poor prognosis, worsening respiratory status despite multiple interventions throughout the prolonged hospital course of 22 days. Patient does have underlying chronic hydropneumothorax right lung for which she was unable to get VATS post transfer during her prior admission. During this admission Patient had chest tube placed and eventually plan was to place PleurX catheter however patient continued to have deteriorating and worsening respiratory function, patient and patient's family verbalized understanding regarding poor prognosis in setting of extensive metastatic breast and thyroid cancer. 01/14/2025 afternoon patient expressed her wish to proceed with comfort focused treatment and transition CODE STATUS to DNR/DNI. Plan: - Morphine drip - Morphine as needed for pain; now 4mg q30min - Ativan as needed for anxiety; increased to Q1H - Zofran as needed for nausea/vomiting - Scopolamine patch as needed - Glycopyrrolate as needed for secretions - Benadryl as needed for itching - Continue high flow nasal cannula #Acute hypoxic respiratory failure /2 #Left sided malignant pleural effusion 2/2 #Metastatic breast cancer, stage IV #Chronic Hydropneumothorax right lung, trapped lung #S/P Left Lung Biopsy #Status post chest tube placement 12/24/24, discontinued 01/01/25 #Asthma, by history On initial presentation patient speaking in short sentences oxygen saturation 86% on 5L nasal cannula. Recent admission of similar presentation revealed exudative effusion from malignant metastases. Patient established with oncology outpatient, was transferred out for decortication however no intervention was done because of stage IV breast cancer per patient. 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 Status post Left upper lobe lung mass pulmonary biopsy (12/27/2024). -Discussed the case with Oncology, Dr. Flowers. Lung biopsy confirms malignancy consistent with breast primary. Prognostic markers including ER/NH receptors and HER2/stevie results are still pending. -Chest tube was removed on 01/01 because it was leaking. -Patient's PET scan has been delayed to January 21, 2025 at 1:45 PM -Per oncology, the biopsy results of the lung showed dual metastasis of breast primary and papillary thyroid carcinoma. Receptors were negative ER/NH, negative HER2/Stevie and negative KI?67 15 to 20% positive. Second focus consistent with metastatic thyroid carcinoma IHC is pending for confirmation. PD-L1 was requested for possible immunotherapy. Her elevated TSH could be related to the metastic cancer problem. -01/07: Patient's O2 saturation decreased to 83%. Received thoracentesis draining ~770cc. CXR after thoracentesis showed reexpanded left lung. Was given IV lasix 40mg x1. Have discussed about the event and patient's status with oncologist, Dr. Flowers , Upon stabilization of patient's vitals, she will be discharged and received Ple[facility]X catheter at [facility] and follow-up with Dr. Li at [facility] in [place]. -Checks x-ray postthoracentesis on 01/07 showed some fluid in the right fissure. Per ICU recommendations, started on IV Lasix 40 mg and ordered echo. -Echo(01/07/2025) showed indeterminate diastolic function with ejection fraction 55 to 60% and RVSP 20 mmHg. Today patient showed +1 pitting edema on her bilateral leg. LV and RV size was normal and systolic function was also normal. - US 01/11 Mild to moderate right pleural fluid? - CXR 01/11 extensive bilateral pneumonia? - CXR 01/13 slightly worsened bilateral infiltrate, moderate left > right pleural effusion, small loculated right pneumothorax. Plan: -Comfort focused treatment, as above #Hypothyroidism #Hx thyroid cancer s/p thyroidectomy 2021 No current active symptoms of hyperthyroid currently. TSH >100 free T4 0.86 Free T3 1.7 Patient's TSH level has been increasing. On admission, TSH 101.7 with free T4: 0.86. On 01/03, TSH>150 with free T4: 0.78. Patient's p.o. levothyroxine 125 mcg has been stopped. IV levothyroxine 125 mcg x 1 has been ordered on 01/04. Will continue to monitor her TSH level. Plan: -Comfort focused treatment as above #Dysphagia #Loss of Appetite -Sensation of food/medicine not going down, with epigastric chest discomfort on eating. -Difficulty removing phlegm. -Ddx: GERD, stictures, Mets to esophagus. -Swallow eval (01/01/2025): Any large pills should be crushed. Pt is independent in eating/swallowing using compensatory techniques and specific diet selections. No further swallow treatment servives warranted at this time. Plan: -Comfort focused treatment as above #Hx of pressure injury, coccyx, stage III Patient reports frequent back pain and it was noted that the patient had a possible pressure injury and her coccyx area. Per last admission, the wound staging is stage III without any drainage or order. Plan: -Comfort focused treatment as above #Depression - Comfort focused treatment Health Maintenance: Code status: DNR/DNI, comfort focused treatment DVT prophylaxis: Comfort focused treatment GI prophylaxis: Comfort focused treatment Diet: N.p.o., high aspiration risk Mccallum: None Lines: PIV Supplemental O2: High flow nasal cannula Disposition: [facility] This case was discussed with my attending physician, Dr. Sanon, and senior resident, Dr. Mcmahon. Carlos Rojas, PGY1 Attending Provider Attestation/Addendum I have discussed and was present for the essential components of the history, physical examination, diagnosis, and treatment plan with the resident. I agree with the patient's care as documented by the resident and amended herein by me. Andrzej Sanon DO. Although this document has been carefully reviewed, there may still be some phonetic and other typographical errors. These errors are purely grammatical due to imperfections in the software program and should not be construed in any way to compromise the substance of the patient's medical care during this visit.
[2025-01-23] MEDS: MORPHINE SULF INJ 4 MG/ML VIAL IVP (12:16)
[2025-01-23] MEDS: GLYCOPYRROLATE INJ 0.2 MG/ML VIAL 0.4 MG IV ×3 (14:03→22:52)
[2025-01-23] MEDS: LORazepam 2 MG/ML VIAL IVP ×3 (14:14→22:54)
[2025-01-23] MEDS: MORPHINE SULF INJ 4 MG/ML VIAL 1 MG IVP ×2 (15:50→22:51)
--- NOTE | 2025-01-23 16:43 | PC.NURSE ---
RR 14
[2025-01-23] MEDS: Morphine IV Drip 100mg/100ml 100 ML IV (21:09)
[2025-01-23 22:00] VITALS: BP 131/93; PULSE 114; RESP 20; O2SAT 87
[2025-01-24] MEDS: MORPHINE SULF INJ 4 MG/ML VIAL 1 MG IVP ×2 (01:49→05:53)
[2025-01-24] MEDS: LORazepam 2 MG/ML VIAL IVP ×2 (01:50→05:56)
[2025-01-24] MEDS: GLYCOPYRROLATE INJ 0.2 MG/ML VIAL 0.4 MG IV (01:52)
[2025-01-24 05:45] VITALS: BP 0/0; PULSE 67; RESP 12; TEMP 36.1; O2SAT 81
[2025-01-24 06:00] VITALS: BMI 24.9
--- NOTE | 2025-01-24 06:05 | PC.NURSE ---
Patient's respiration 12,on labored breathing,bp 0,hr 67,o2 sat on 5l nasal cannula 81%. Dr. Forman notified. Prn medications for comfort given as ordered per patient's son at bedside.
[2025-01-24 08:00] VITALS: BP 0/0; PULSE 68; RESP 12; TEMP 36.1; O2SAT 88
--- NOTE | 2025-01-24 09:46 | PC.SS ---
SS spoke to Peace from [facility] and Yamile from [facility] who explained pt does not have Medical to cover the cost for Hospice and paying privately is $350.00 per day. SS contacted Brooks from [facility] which is through [facility] who explained pt has to have qualify diagnosis, 2weeks-30 days life expectancy, and they are income based program to see what pt qualifies for.
--- NOTE | 2025-01-24 10:02 | DES_ITS ---
Documentation for date of: 01/24/25 Pronouncement Note Date and Time of Date of : 01/24/25 Time of : 09:54 PCOD Preliminary cause of : Cardiopulmonary arrest Contributing Factors (1) Hydropneumothorax: (2) Metastatic malignant neoplasm to breast: Summary Additional details: PRONOUNCEMENT NOTE Called to see patient, she was on comfort care as per family's wishes. At 9:47 AM: Patient became unresponsive, on exam she did not respond to verbal or physical stimuli. Absent heart sounds. Absent peripheral pulses. Pupils fixed and dilated. No reflexes Patient pronounced at 09:54 AM. Next of kin/family notified and counselled, and were present at bedside. Supervising : Dr. Talita Mcmahon PGY2 Additional Data Confirmation of : no pulse, no respirations, no heart sounds and pupils fixed and dilated Family: at bedside Attending/PCP notified?: Yes Attending physician: Srinath Sanon, DO Was code activated?: No Autopsy requested?: No supervisory examiner notified?: No Organ bank notified?: Yes Advance directives: Yes
--- NOTE | 2025-01-24 13:43 | PD.RESDS ---
Planned Discharge Date 01/24/25 DS: Providers Provider Date of admission: 12/23/24 05:49 Primary care physician: Trevor Suggs MD Admitting Provider: Varsha Caldwell MD Attending Provider on Admission: Srinath Sanon DO Consults: 12/23/24 06:14 Consult to Pulmonology Routine Comment: Malignant pleural effusion requiring thoracentesis Consulting Provider: Alex Nino I 12/23/24 06:33 Referral Wound Care Routine Comment: 12/23/24 06:37 Consult to Oncology Routine Comment: TSH >100 s/p thyoridectomy 2021 Consulting Provider: Duane Flowers 12/23/24 18:41 Referral [place] Routine Comment: Referral Respiratory Therapy Routine Comment: 12/25/24 07:52 Referral Speech Therapy Routine Comment: Instructions: hx of thyroidectomy with swallowing difficulty 12/31/24 11:49 Referral Speech Therapy Routine Comment: Coughing while taking pills. 01/07/25 12:05 Consult to Adult Probation Officer Routine Comment: Consulting Provider: Sandrita Chase Attending Provider on DC: Shadia Dumont DO Discharging Provider: Shadia Dumont DO Hospital Course Hospital Course Hospital course: Patient seen and examined at bedside; no acute events overnight. Will increase morphine to 4mg Q30min. Time Spent with Patient Time attestation: Total time spent providing and/or coordinating discharge services: Exam Vital Signs Temp Pulse Resp BP Pulse Ox O2 Del Method O2 Flow Rate 97.0 F 68 12 0/0 L 88 L Nasal Cannula 6 01/24/25 08:00 01/24/25 08:00 01/24/25 08:00 01/24/25 08:00 01/24/25 08:00 01/24/25 08:00 01/24/25 09:00 FiO2 60 01/22/25 08:00 Discharge Plan Plan Patient Disposition: Patient condition on transfer: Stable Care Plan Goals: - You were admitted to the hospital for bilateral pleural effusion, we obtained a lung biopsy pleural effusion fluid is consistent with underlying malignancy, follow-up with hematology and oncology outpatient. - Repeat US of left lung in one week. PleurX catheter placement can be arranged by CTC - Return to emergency department if your symptoms worsen. - Continue all medications as below - Obtain PET scan outpatient - Repeat thyroid labs outpatient - Follow-up in [facility] in 1 to 2 weeks. - Continue Speech Therapy outpatient Call [phone] to make an appointment Address: [facility], [address], [address], [place], [address] Prescriptions/Referrals Referrals: Trevor Suggs MD [Primary Care Provider, Family Practice] Patient/Caregiver Discharge Instructions Print Language: Afghan Stand Alone Forms: [employer].
--- NOTE | 2025-01-24 16:27 | DES_ITS ---
<Statement entered by Juan Mcmahon MD - 01/24/25 18:21> I saw and examined patient personally and supervised PGY 1 resident, Dr. Dumont with formulating a management plan. I agree with the documentation as listed below. Plan of care discussed with Attending Dr. Gauri Mcmahon MD PGY 2 Disclaimer: This note was dictated by speech recognition. Minor errors in plant protection supervisor may be present due to voice recognition software. 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 Initially, patient presented to the emergency department on 11/06/2024 with a two week history of progressive shortness of breath, generalized weakness, chills, and worsening cough. Two weeks prior of 11/06, she had been evaluated by her primary care provider and was diagnosed with emphysema and treated with steroids and cetirizine without improvement. On repeat outpatient imaging, a significant right sided pleural effusion was noted, and she was advised to present to the hospital for further evaluation. The patient reported that imaging since June 2024 had demonstrated pulmonary ?spots,? and she had been referred for lung biopsy to [facility], though the consultation had been delayed. Prior CT chest with contrast performed on revealed at least 30 bilateral noncalcified pulmonary nodules, highly suspicious for metastatic disease. In the ED, CXR revealed complete opacification of the right hemithorax, and subsequent CT imaging demonstrated a massive right pleural effusion with complete atelectasis of the right lung, as well as enlarging metastatic pulmonary nodules in the left lung. A CT angiogram was negative for pulmonary embolism but confirmed complete right lung collapse due to massive pleural effusion. She was admitted for acute hypoxic respiratory failure secondary to large right malignant pleural effusion and associated pneumothorax. During the hospitalization on 11/06, she underwent right-sided thoracentesis with removal of approximately 2000 mL of pleural fluid and was treated with IV ceftriaxone as well as scheduled nebulized bronchodilators. Repeat imaging demonstrated reaccumulation of pleural fluid, and a second thoracentesis was performed on 11/08, removing an additional 1400 mL. Given failure of the right lung to re-expand, a right sided chest tube was placed under fluoroscopic guidance. Pleural fluid analysis demonstrated an exudative effusion, and cytology revealed malignant cells consistent with metastatic breast carcinoma. CT imaging of the abdomen and pelvis showed hydropneumothorax. Pulmonology recommended transfer to a higher level of care for consideration of surgical decortication in the setting of trapped lung and for further diagnostic evaluation. The patient was transferred to a tertiary facility, [facility] in [place], on 11/14. No surgical intervention was performed there, reportedly due to the extent of her metastatic disease. She was subsequently transferred back to the hospital on 11/17. During this period, chest tube output remained minimal, and ultrasound demonstrated persistent moderate right and minimal left pleural effusions. Consideration was given to placement of a tunneled pleural catheter, however, it was deferred due to suspected loculations and lack of a safe fluid pocket. An attempted thoracentesis on 11/20 was aborted due to the close proximity of the lung to the pleural surface. Her chest tube was removed without complication, and she was discharged on 11/20 with outpatient follow-up with oncology, pulmonology, and primary care. On 12/23/2024, the patient re-presented with worsening dyspnea due to progressive malignant pleural disease. CT angiogram at that time revealed a moderate to large left pleural effusion, a loculated right hydropneumothorax, right-sided pneumonia, and multiple metastatic pulmonary nodules. Lower extremity Doppler studies were negative for deep vein thrombosis. She was managed with bronchodilators, incentive spirometry, escalating oxygen support, and pain control. Bedside ultrasound confirmed significant left sided pleural effusion, and due to the inability to safely perform thoracentesis, a left sided chest tube was placed, draining approximately 1200 mL of fluid. She was treated with IV zosyn and IV doxycycline for presumed pneumonia, and her PO levothyroxine dosage was adjusted. Pleural fluid studies again demonstrated an exudative effusion, and cytology revealed adenocarcinoma. A CT guided biopsy of the left upper lobe lung lesion was performed, confirming metastatic carcinoma consistent with a breast primary. Subsequent pathology revealed dual metastatic disease from both breast cancer and papillary thyroid carcinoma, with tumor markers negative for ER/NH and HER2 and a Ki-67 of 15?20% positivity. Her thyroid function testing revealed a markedly elevated TSH greater than 150, and she was treated with IV levothyroxine. Throughout her prolonged hospitalization, the patient experienced persistent and recurrent hypoxic respiratory failure requiring alternating use of nasal cannula and high flow nasal cannula oxygen therapy. She underwent repeat thoracentesis on 01/07 with removal of approximately 770 mL of pleural fluid, which resulted in temporary lung re-expansion. She required repeated diuresis for volume overload, and aggressive symptom management for cough, dyspnea, pain, anxiety, and constipation. Attempts to perform pleurodesis and to place a tunneled pleural catheter were repeatedly deferred due to insufficient pleural fluid or clinical instability. An echocardiogram showed preserved left ventricular ejection fraction and no significant cardiac dysfunction contributing to her respiratory failure. Despite maximal medical management, the patient?s respiratory status progressively deteriorated in the setting of widespread metastatic breast and thyroid carcinoma with malignant pleural effusions and chronic right hydropneumothorax. On 01/14, after extensive discussions with her medical team and her family regarding prognosis and goals of care, the patient elected to transition to comfort-focused treatment. Her code status was changed to DNR/DNI in accordance with her wishes. She was started on a morphine infusion and received additional comfort medications including lorazepam, scopolamine, glycopyrrolate, and guaifenesin with codeine. Care was transitioned to a comfort-focused approach, and she was transferred to a [facility] for end-of-life care consistent with her expressed goals and family wishes. On 01/24/25, patient was pronounced at 0954. Additional Data Attending physician: Srinath Sanon DO Visit Providers Provider Primary care physician: Trevor Suggs MD Consults: 12/23/24 06:14 Consult to Pulmonology Routine Comment: Malignant pleural effusion requiring thoracentesis Consulting Provider: Alex Nino I 12/23/24 06:33 Referral Wound Care Routine Comment: 12/23/24 06:37 Consult to Oncology Routine Comment: TSH >100 s/p thyoridectomy 2021 Consulting Provider: Duane Flowers 12/23/24 18:41 Referral [place] Routine Comment: Referral Respiratory Therapy Routine Comment: 12/25/24 07:52 Referral Speech Therapy Routine Comment: Instructions: hx of thyroidectomy with swallowing difficulty 12/31/24 11:49 Referral Speech Therapy Routine Comment: Coughing while taking pills. 01/07/25 12:05 Consult to Bilingual Operator Routine Comment: Consulting Provider: Sandrita Chase Diagnosis Contributing Factors (1) Hydropneumothorax: (2) Metastatic malignant neoplasm to breast: Discharge Plan Plan Patient Disposition: Patient condition on transfer: Stable Care Plan Goals: - organ donor unit informed -family informed. Prescriptions/Referrals Referrals: Trevor Suggs MD [Primary Care Provider, Family Practice] Patient/Caregiver Discharge Instructions Print Language: Swedish Stand Alone Forms: [employer] Info.
== END 2025-01-24 09:54 | disposition expired | DRG 597 ==
LOC: SERX 05:27 → SERHOLD 06:11 → S3SX 12-24 05:43 → S2NX 12-28 17:22 → S3SX 01-14 21:15
PROVIDERS: Radiology Diagnostic Radiology; Radiology Therapeutic Radiology; Student in an Organized Health Care Education/Training Program; Admitting Provider Student in an Organized Health Care Education/Training Program; Emergency Provider Emergency Medicine; PCP Family Medicine; Visit Provider Student in an Organized Health Care Education/Training Program
DX: C50.911 Malignant neoplasm of unspecified site of right female breast (principal); J15.9 Unspecified bacterial pneumonia; L89.153 Pressure ulcer of sacral region, stage 3; J96.01 Acute respiratory failure with hypoxia; C78.00 Secondary malignant neoplasm of unspecified lung; J94.8 Other specified pleural conditions; J91.0 Malignant pleural effusion; T79.7XXA Traumatic subcutaneous emphysema, initial encounter; F41.9 Anxiety disorder, unspecified; F32.A Depression, unspecified; J45.909 Unspecified asthma, uncomplicated; Z90.13 Acquired absence of bilateral breasts and nipples; Z85.850 Personal history of malignant neoplasm of thyroid; Z51.5 Encounter for palliative care; I46.9 Cardiac arrest, cause unspecified; E89.0 Postprocedural hypothyroidism; J43.9 Emphysema, unspecified; R13.10 Dysphagia, unspecified; T17.228A Food in pharynx causing other injury, initial encounter; W44.F3XA Food entering into or through a natural orifice, initial encounter; Z17.421 Hormone receptor negative with human epidermal growth factor receptor 2 negative status; Z66 Do not resuscitate; Z75.1 Person awaiting admission to adequate facility elsewhere; E87.70 Fluid overload, unspecified; D72.10 Eosinophilia, unspecified; E87.8 Other disorders of electrolyte and fluid balance, not elsewhere classified; Z79.811 Long term (current) use of aromatase inhibitors; Z79.890 Hormone replacement therapy; I46.8 Cardiac arrest due to other underlying condition; Z79.899 Other long term (current) drug therapy; Z88.2 Allergy status to sulfonamides; Z88.5 Allergy status to narcotic agent
CPT/HCPCS: 36415; 36600; 71045; 71275; 74177; 76999; 77012; 80053; 81001; 82010; 82150; 82248; 82378; 82803; 82945; 83605; 83615; 83690; 83735; 83880; 84100; 84145; 84157; 84432; 84439; 84443; 84481; 84484; 85025; 85379; 85610; 85652; 85730; 86140; 86300; 86800; 87040; 87070; 87075; 87205; 87502; 87635; 89051; 92526; 92610; 93005; 93225; 93306; 93970; 94640; 94660; 94667; 96374; 96375; 99152; 99285; A4649; A9270; J0696; J1171; J1644; J1938; J2060; J2250; J2270; J2405; J2470; J2543; J2765; J2919; J3010; J3475; J3480; J3490; Q0167; Q9967; J1596